=== PATIENT | female | born 1945 | race Caucasian/White ===

== ENCOUNTER 2024-05-19 21:44 | Inpatient (IN) | payer MEDICARE, BC, SELFPAY ==
[2024-05-19 16:27] VITALS: BP 140/65
[2024-05-19 16:44] LABS: % Basophils 0.5 % (0-2); % Eosinophils 1.2 % (0-6); % Immature Granulocytes 0.4 % (0-0.5); % Lymphocytes 18.1 % (20.5-51.1); % Monocytes 5.8 % (1.7-9.3); Absolute Eosinophils 0.1 10^3/uL (0-0.7); Absolute Lymphocytes 1.4 10^3/uL (1.2-3.4); Absolute Monocytes 0.4 10^3/uL (0.1-0.6); Absolute Neutrophils 5.6 10^3/uL (1.4-6.5); Hematocrit 40.5 % (37.0-47.0); Hemoglobin 13.4 g/dL (12.0-16.0); Mean Corp Hgb Conc. 33.1 g/dL (33.0-37.0); Mean Corpuscular Hgb 31.4 pg (27.0-31.0); Mean Corpuscular Volume 94.8 fL (81.0-99.0); Mean Platelet Volume 10.6 fL (7.4-10.4); Nucleated Red Blood Cells % 0 %; Platelet Count 171 10^3/uL (130-400); Red Blood Cell Count 4.27 10^6/uL (4.20-5.40); Red Cell Dist. Width 14.3 % (11.5-14.5); White Blood Cell Count 7.6 10^3/uL (4.8-10.8)
[2024-05-19 17:06] LABS: ALT (SGPT) 17 U/L (0-35); AST (SGOT) 22 U/L (14-36); Albumin 4.1 g/dl (3.5-5.0); Alkaline Phosphatase 72 U/L (38-126); Blood Urea Nitrogen 18 mg/dl (7-17); Carbon Dioxide 32 mmol/L (22-30); Chloride 96 mmol/L (98-107); Glucose 137 mg/dl (70-99); Lipase 156 U/L (23-300); Potassium 3.3 mmol/L (3.5-5.1); Sodium 135 mmol/L (135-145); Total Bilirubin 0.7 mg/dl (0.2-1.3); Total Protein 6.9 g/dl (6.3-8.2); eGFR 38.27
--- NOTE | 2024-05-19 18:34 | ED.GENMED ---
History of Present Illness
<Timothy Mario PA-C - Last Filed: 05/19/24 19:37>
General
Chief Complaint: Flank Pain
Time Seen by Provider: 05/19/24 18:12
History of Present Illness
History of Present Illness:
Patient is a 78-year-old female with past medical history of chronic back pain, history of SVT, IBS, history of thyroid cancer, prior history of appendectomy, cholecystectomy, fibroid tumor removal, and hiatal hernia repair, here today for
evaluation of approximately 5 days of left-sided lower back pain associated with nausea. Pain is described as severe 9 out of 10 in severity. There is no radiation of pain into the abdomen. No vomiting. No chest pain or difficulty breathing
noted. No urinary symptoms. No fevers. No prior history of kidney stones. Patient has been taking Tylenol without improvement.
Past History
<ELINOR Mares Last Filed: 05/19/24 19:37>
Past History
ED Past Medical History: Arrthythmia, Cancer (thyroid), Hypothyroidism, Other (Bursitis,), Other (Had fast-growing cataracts, Cataract surgery) and Other (Bad seasonal allergies, chronic head and nasal congestion with headaches, is on Pushpa all
year long. Takes Monolukast as needed.); Negative HTN, Hypercholesterolemia or NIDDM
ED Past Surgical History: Appendectomy, Cholecystectomy, Gynecological (Hysterectomy), Orthopedic (Bilateral knee replacements) and Other (Abd surgery for large fibroid)
Social History
Tobacco: Non-smoker
Alcohol: None
Personal:
Living: with family
Employment: Employed
Family History
Family History: Adopted
Review of Systems
<ELINOR Mares Last Filed: 05/19/24 19:37>
Review of Systems
All Other Systems: ROS reviewed and negative except as documented in HPI and ROS
Phy Exam
<ELINOR Mares Last Filed: 05/19/24 19:37>
Physical Exam
Physical Exam:
GENERAL: Alert , in no apparent distress
EYE: pupils equal and reactive
NECK: Supple
ENT: o/p clr, mmm.
CARDIAC: Regular rate and rhythm .
LUNGS: Clear breath sounds bilaterally, no acute respiratory distress, no wheezes/rales/rhonchi
ABDOMEN: Soft, without focal tenderness, no r/g, no cvat
NEUROLOGICAL: Alert and oriented, no focal neuro deficits
SKIN: Warm and dry, skin intact.
MUSCULOSKELETAL: No edema, well perfused. Mildly tender along the left lower lumbar paraspinal region.
PSYCH: Normal and appropriate interaction.
Course
<Timothy Mario PA-C - Last Filed: 05/19/24 19:37>
Orders/Labs/Results
Orders:
Orders
05/19/24 16:34
Complete Blood Count/With Diff Urgent
Comprehensive Metabolic Panel Urgent
Lipase Urgent
05/19/24 18:28
Ondansetron Injectable [Zofran] 4 mg IV NOW STA
05/19/24 18:33
Acetaminophen [Tylenol] 1,000 mg PO NOW STA
Lidocaine [Lidocaine 4% Patch] 1 patch TOPICAL ONCE ONE
Apply Lidocaine patch(s) to:: left low back
05/19/24 18:47
CT Abd/pel Without Iv Or Oral Urgent
Comment:
Reason For Exam: left flank pain nausea
05/19/24 18:52
Ondansetron HCl [Zofran] 4 mg PO NOW STA
05/19/24 18:54
Ondansetron Orally Disint [Zofran Odt (Orally Disintegrating)] 4 mg .ROUTE .STK-MED ONE
05/19/24 19:13
Urine Culture Reflexed from UA [Urinalysis Reflex To Culture] Urgent
Date Specimen was Collected: 05/19/24
Time Specimen was Collected: 16:30
Urine Microscopic Reflex Cult Urgent
Urine Culture Urgent
[place] Source: U
Specimen Description:
Date Specimen was Collected: 05/19/24
Time Specimen was Collected: 16:30
Abnormal Lab Results
05/19/24 05/19/24
16:34 19:13
MCH 31.4 H pg
(27.0-31.0)
MPV 10.6 H fL
(7.4-10.4)
Lymphocytes % 18.1 L %
(20.5-51.1)
Potassium 3.3 L mmol/L
(3.5-5.1)
Chloride 96 L mmol/L
(98-107)
Carbon Dioxide 32 H mmol/L
(22-30)
BUN 18 H mg/dl
(7-17)
Creatinine 1.4 H mg/dL
(0.6-1.0)
Glucose 137 H mg/dl
(70-99)
Ur Occult Blood Reflex 1+ A
(Negative)
Urine Bacteria (Reflex) Moderate A
(Negative)
Urine Albumin (Reflex) 1+ A
(Neg - Trace)
05/19/24 16:34
05/19/24 16:34
Vital Signs
Initial and Last Documented VS:
Initial Vital Signs
Temp Pulse Resp BP Pulse Ox
98.1 F 59 20 140/65 97
05/19/24 16:27 05/19/24 16:27 05/19/24 16:27 05/19/24 16:27 05/19/24 16:27
Last Documented Vital Signs
Temp Pulse Resp BP Pulse Ox
98.1 F 63 18 141/74 97
05/19/24 16:27 05/19/24 19:11 05/19/24 19:11 05/19/24 19:11 05/19/24 19:11
<Gale Ramirez MD - Last Filed: 05/19/24 20:30>
Orders/Labs/Results
Orders:
Orders
05/19/24 16:34
Complete Blood Count/With Diff Urgent
Comprehensive Metabolic Panel Urgent
Lipase Urgent
05/19/24 18:28
Ondansetron Injectable [Zofran] 4 mg IV NOW STA
05/19/24 18:33
Acetaminophen [Tylenol] 1,000 mg PO NOW STA
Lidocaine [Lidocaine 4% Patch] 1 patch TOPICAL ONCE ONE
Apply Lidocaine patch(s) to:: left low back
05/19/24 18:47
CT Abd/pel Without Iv Or Oral Urgent
Comment:
Reason For Exam: left flank pain nausea
05/19/24 18:52
Ondansetron HCl [Zofran] 4 mg PO NOW STA
05/19/24 18:54
Ondansetron Orally Disint [Zofran Odt (Orally Disintegrating)] 4 mg .ROUTE .STK-MED ONE
05/19/24 19:13
Urine Culture Reflexed from UA [Urinalysis Reflex To Culture] Urgent
Date Specimen was Collected: 05/19/24
Time Specimen was Collected: 16:30
Urine Microscopic Reflex Cult Urgent
Urine Culture Urgent
[place] Source: U
Specimen Description:
Date Specimen was Collected: 05/19/24
Time Specimen was Collected: 16:30
Abnormal Lab Results
05/19/24 05/19/24
16:34 19:13
MCH 31.4 H pg
(27.0-31.0)
MPV 10.6 H fL
(7.4-10.4)
Lymphocytes % 18.1 L %
(20.5-51.1)
Potassium 3.3 L mmol/L
(3.5-5.1)
Chloride 96 L mmol/L
(98-107)
Carbon Dioxide 32 H mmol/L
(22-30)
BUN 18 H mg/dl
(7-17)
Creatinine 1.4 H mg/dL
(0.6-1.0)
Glucose 137 H mg/dl
(70-99)
Ur Occult Blood Reflex 1+ A
(Negative)
Urine Bacteria (Reflex) Moderate A
(Negative)
Urine Albumin (Reflex) 1+ A
(Neg - Trace)
05/19/24 16:34
05/19/24 16:34
Vital Signs
Initial and Last Documented VS:
Initial Vital Signs
Temp Pulse Resp BP Pulse Ox
98.1 F 59 20 140/65 97
05/19/24 16:27 05/19/24 16:27 05/19/24 16:27 05/19/24 16:27 05/19/24 16:27
Last Documented Vital Signs
Temp Pulse Resp BP Pulse Ox
98.1 F 63 18 141/74 97
05/19/24 16:27 05/19/24 19:11 05/19/24 19:11 05/19/24 19:11 05/19/24 19:11
<Timothy Mario PA-C - Last Filed: 05/19/24 19:37>
MDM/Problems Addressed
Differential Diagnosis Includes:
Patient is a 78-year-old female with past medical history of chronic back pain, history of SVT, IBS, history of thyroid cancer, prior history of appendectomy, cholecystectomy, fibroid tumor removal, and hiatal hernia repair, here today for
evaluation of approximately 5 days of left-sided lower back pain associated with nausea. Overall, patient appears very well. Vitals remarkable for an elevated blood pressure. Physical examination described above. On examination the patient is
mildly tender along the left lower lumbar paraspinal region. There is no midline tenderness or deformities. No swelling or overlying skin changes. Abdomen soft and nontender. We will begin with screening labs as well as urinalysis. Will obtain
CT scan of the abdomen and pelvis. Patient not able to take IV contrast secondary to reported history of swelling. She also was found to have an elevated creatinine however consistent with baseline. Will provide oral contrast and hold off on IV
contrast. Will provide IV Zofran for nausea as well as Tylenol for pain. Will also provide topical lidocaine patches.
ED Attending Note
<Timothy Mario PA-C - Last Filed: 05/19/24 19:37>
-
Portions of this chart may have been created with voice recognition software.� Occasional wrong word or��sound alike� substitutions may have occurred due to the inherent limitations of voice recognition software.
<Gale Ramirez MD - Last Filed: 05/19/24 20:30>
ED Attending Note
Patient seen and examined by attending physician: Yes
I performed the substantive portion of visit, reviewed & personally made and approve the management plan that is documented in note by myself or FLOR.: Yes
ED Attending Note:
78-year-old female who noted urinary frequency recently associated with a 4-day history of left-sided flank pain. Unfortunately her CAT scan is consistent with a new onset pelvic mass and likely metastatic lymph nodes. She also has obstruction of
the left ureter, creatinine reviewed at 1.4. Pain was controlled initially she is now requesting more pain medication. She is awake alert lucid and generally comfortable. Long discussion with her, her son-in-law, and her all who are at
bedside. I gave them a copy of her CAT scan report and they are aware of the suspected malignancy. Patient will be admitted, case discussed with hospitalist via [place] text, recommended urology consult in a.m. as well as obvious heme-onc consult.
Discharge Plan
Departure
Patient Disposition: Admit
Date of Disposition: 05/19/24
Time of Disposition: 20:28
Presentation/result/management discussed w/ accepting MD/DO: Hospitalist
Condition: Fair
Discharge Problem:
New onset pelvic mass
Prescriptions:
No Action
triamterene-hydrochlorothiazid 1 EACH tablet
1 ea PO DAILY
Patient Comments:
37.5-25mg
montelukast 10 MG tablet
10 mg PO QPM
fexofenadine [Pushpa] 60 MG tablet
60 mg PO BID
levothyroxine 150 MCG tablet
150 mcg PO DAILY
escitalopram oxalate 10 MG tablet
10 mg PO HS
Bifidobacterium infantis [Align (B.infantis)] 4 MG capsule
4 mg PO DAILY
metoprolol tartrate 100 MG tablet
100 mg PO BID
twunnxhp-egh-JR-lycopen-lutein [Centrum Silver] 1 EACH tablet
1 ea PO DAILY
acetaminophen 325 MG tablet
650 mg PO Q4HPRN PRN (Reason: mild to moderate pain) Qty: 0 0RF
polyethylene glycol 3350 17 GRAMS powder in packet
17 grams PO DAILYPRN PRN (Reason: constipation) Qty: 0 0RF
tramadol 50 MG tablet
25 - 50 mg PO Q6HPRN PRN (Reason: severe pain) Qty: 14 0RF
prochlorperazine maleate 10 MG tablet
10 mg PO Q6HPRN PRN (Reason: nausea/vomiting) Qty: 10 0RF
pantoprazole 40 MG tablet,delayed release (DR/EC)
40 mg PO DAILY Qty: 0 0RF
Referrals:
UNKNOWN - PT DOES,NOT KNOW [Unknown Provider] -
Interventions
Interventions:
*Risk Screen - Suicide Last Done: 05/19/24 19:10
*General Assessment Last Done: 05/19/24 16:27
TN-Gmflxa-Tyvfgperdj Assessment Last Done: 05/19/24 19:16
ED-Female Genitourinary Assessment Last Done: 05/19/24 19:16
Discharge Date and Time
Print Language: BURMESE
[2024-05-19] MEDS: TYLENOL 1000 MG PO (18:57)
[2024-05-19] MEDS: LIDOCAINE 4% PATCH 1 PATCH TOPICAL (18:59)
[2024-05-19] MEDS: ZOFRAN 4 MG PO (18:59)
[2024-05-19 19:09] VITALS: BMI 32.3
[2024-05-19 19:11] VITALS: BP 141/74
[2024-05-19 19:20] LABS: Urine Albumin 1+ (Neg - Trace); Urine Bilirubin Negative (Negative); Urine Character Clear (Clear); Urine Color Yellow; Urine Glucose Negative (Negative); Urine Ketone Negative (Negative); Urine Leukocyte Negative (Negative); Urine Nitrite Negative (Negative); Urine Occult Blood 1+ (Negative); Urine Urobilinogen Negative (Neg - 1+)
[2024-05-19 19:27] LABS: Urine Squamous Cell >30 /LPF (Few)
[2024-05-19 19:28] LABS: Urine Bacteria Moderate (Negative); Urine Red Blood Cell 0-2 /HPF (0-2); Urine White Cell 0-2 /HPF (0-5)
--- NOTE | 2024-05-19 21:01 | HPS.HSE ---
Family Physician
-
Family Physician: Samson Davenport
Chief Complaint
-
Left-sided flank pain
History of Present Illness
This is 78-year-old female with past medical history significant for leiomyoma of body of uterus status post total abdominal hysterectomy in 2016, history of hypertension, anemia, paroxysmal SVT, remote thyroid cancer status post radioablation,
history of irritable bowel syndrome, history of adhesions status post surgery presenting to the emergency department with left-sided flank pain for the last 4 days.
Patient reports acute onset of left-sided flank pain radiating to the abdomen and associated with nausea vomiting and currently only dry heaves due to decreased p.o. intake. She specifically denies having any dysuria, hematuria frequency or
urgency. She did not have any fevers or chills and did not feel quite this was a UTI. She denies any abdominal bloating. She denies any change in bowel habits which is notable for intermittent constipation and diarrhea.
She denies generalized symptoms such as weight loss, weight gain, diaphoresis, night sweats, shortness of breath or dyspnea on exertion. She denies any lower extremity swelling.
On arrival in the emergency department she was afebrile with a blood pressure of 140/70 pulse of history and she was satting 98% on room air. CBC was completely normal. Electrolytes BUN and creatinine were similar to prior with a creatinine of 1.4
which is similar to her prior creatinine. UA shows no signs of acute infection.
CT of the abdomen pelvis revealed large heterogeneous, cystic lesion extending from the pelvis into the lower/mid abdomen measuring up to 18.9 x 14.8 x 16.9 cm. There is associated local mass effect. There are numerous additional mildly hypodense
lesions with a large left perirenal/retroaortic lesion measuring 13.4 x 9.4 x 13.2 cm. This obstructs the left ureter with associated moderate left-sided hydronephrosis. Findings are that of malignancy, possibly ovarian, with metastatic lymph
nodes/soft tissue deposits. Also there is a 3.3 cm focus of nodular thickening along the sigmoid colon which may be related to a large adjacent lymph node, although a sigmoid mass is possible. Further evaluation with colonoscopy may be considered.
Medical History
Past Medical History
Past Medical History: Reports Other
Additional Past Medical History:
Thyroid cancer status post total thyroidectomy and radioablation
Hypertension
Paroxysmal SVT
Allergic rhinitis
GERD
History of leiomyoma status post BETINA/BSO
Hypothyroid
IBS
Past Surgical History: Reports Other
Additional Past Surgical History:
Total abdominal hysterectomy and bilateral salpingo-oophorectomy in 2016
Adhesiolysis
Cholecystectomy
Thyroidectomy
Total left knee arthroplasty
Total right knee arthroplasty
Paraesophageal hernia repair with mesh and posterior partial fundoplication 2018
Social History
Tobacco: Non-smoker
Alcohol: None
Drug: None
Personal:
Living: With Family
Employment: Retired
Family History
Family History: Not pertinent
Allergies / Home Medications
Allergies reflects when Allergies were last updated in [facility].
Home Medications with original date entered in [facility]
Allergy/Medication List:
Allergies
Allergy/AdvReac Type Severity Reaction Status Date / Time
codeine [Codeine] Allergy vomiting Verified 05/19/24 16:27
erythromycin base Allergy vomiting Verified 05/19/24 16:27
[Erythromycin Base]
hydrocodone [Hydrocodone] Allergy swelling, Verified 05/19/24 16:27
vomiting
Iodinated Contrast Media Allergy Swelling Verified 05/19/24 16:27
[IV Dye, Iodine Containing
Contrast ]
NSAIDS (Non-Steroidal Allergy INTERNAL Verified 05/19/24 16:27
Anti-Inflamma BLEEDING,
ANEMIA
oxycodone Allergy Vomiting Verified 05/19/24 16:27
Home Medications
montelukast 10 mg tablet 10 mg PO QPM 03/31/11
triamterene 37.5 mg-hydrochlorothiazide 25 mg tablet 1 ea PO DAILY 03/31/11
escitalopram oxalate 20 mg tablet 10 mg PO HS 08/30/17
fexofenadine 60 mg tablet (Pushpa) 60 mg PO BID 08/30/17
levothyroxine 150 mcg tablet 150 mcg PO DAILY 08/30/17
metoprolol tartrate 100 mg tablet 100 mg PO BID 06/17/18
pantoprazole 40 mg tablet,delayed release 40 mg PO twice daily
Imodium 2 mg tablet, 2 mg p.o. twice daily
Review of Systems
-
History Source: Patient
Constitutional: Reports No Symptoms
EENT: Reports No Symptoms
Respiratory: Reports No Symptoms
Cardiac: Reports No Symptoms
Abdomen/GI: Reports Abdominal Pain
: Reports Flank Pain
Musculoskeletal: Reports No Symptoms
Skin: Reports No Symptoms
Neurological: Reports No Symptoms
Endocrine: Reports No Symptoms
Hematologic/Lymphatic: Reports No Symptoms
Psych: Reports No Symptoms
Physical Exam
Vital Signs
Vital Signs
Temp Pulse Resp BP Pulse Ox
98.1 F 63 18 141/74 97
05/19/24 16:27 05/19/24 19:11 05/19/24 19:11 05/19/24 19:11 05/19/24 19:11
Physical Exam
General: Well Developed, Well Nourished, No Apparent Distress and Comfortable
HEENT: NormoCephalic, Anicteric, Moist mucous membranes and Atraumatic
Respiratory: Clear
Cardiac: S1/S2 and Regular Rhythm
Breast: Deferred by me
GI: Soft, Non Tender, Non Distended and Normal Bowel Sounds
Rectal: Deferred by Provider
Genito-urinary: Deferred by me
Musculoskeletal: No Clubbing, No Cyanosis and No Edema
Neuro: AO x 3 and Nonfocal/grossly intact
Hematologic/Lymphatic: No Lymphadenopathy
Psych: Calm
Laboratory Results
-
05/19/24 16:34
05/19/24 16:34
Laboratory Results
Total Bilirubin 0.7 mg/dl (0.2-1.3) 05/19/24 16:34
AST 22 U/L (14-36) 05/19/24 16:34
ALT 17 U/L (0-35) 05/19/24 16:34
Alkaline Phosphatase 72 U/L (38-126) 05/19/24 16:34
Lipase 156 U/L (23-300) 05/19/24 16:34
Data Reviewed
-
CT Scan: Report Reviewed by me
Lab Data: Labs Reviewed by me
Old Records: Reviewed
Impression/Plan
-
IMPRESSION:
78-year-old comes in with 4 days of right-sided flank pain was found to have a new large cystic lesion extending from the pelvis into the lower midabdomen measuring about 19 cm in largest dimension with associated local mass effect and additional
hypodense lesions with a large left perirenal/retroaortic lesion measuring a 14 cm in largest extension which obstructs the left ureter with associated moderate left-sided hydronephrosis. In addition there is a 3.3 cm focus of nodular thickening
along the sigmoid colon which may be related to a large adjacent lymph node although a sigmoid mass is possible. UA is negative she shows no signs of an acute infection. Besides the pain she is otherwise asymptomatic.
PLAN:
1. Pelvic mass with urinary obstruction - Cr 1.4 similar to prior. U/A negative. No signs of acute infection otherwise.
- admit to med/surg
- given urinary obstruction, urology notified, no recommendations at this point
- concern if for possible metastatic lesion (h/o leimomyoma) of uterine or ovarian origin, h/o BETINA/BSO in 2016.
- check Ca 125 and CEA
- oncology consultation
- pain control
- given lesion in colon, will get GI as this may be an approach to diagnostic testing
2. Other issues are relatively stable so will continue her medications as per home regimen at this time.
DVT PPX - unknown timing of urological procedure but no indication for acute procedure, lovenox sq. Will d/c if urology intends procedure
Code status - full code
[2024-05-19] MEDS: ULTRAM 50 MG PO (22:15)
[2024-05-19] MEDS: ZOFRAN 4 MG IV (23:04)
[2024-05-19 23:29] VITALS: BP 123/61
[2024-05-19 23:47] VITALS: BP 140/80
[2024-05-19 23:48] VITALS: BMI 32.3
[2024-05-20] MEDS: HEPARIN 5000 UNITS SC ×3 (00:09→16:04)
[2024-05-20] MEDS: LEXAPRO 20 MG PO (00:11)
[2024-05-20] MEDS: TYLENOL 650 MG PO (02:49)
--- NOTE | 2024-05-20 05:28 | CONS.URO ---
Consultation
-
Date/Time Consultation Performed: 05/20/2024 0537
Requesting Provider: ED
Performing Provider: Abhi
Reason for Consultation: Left Ureteral Obstruction
Medical History
History of Present Illness
ED admission note: '78-year-old female with past medical history significant for leiomyoma of body of uterus status post total abdominal hysterectomy in 2016, history of hypertension, anemia, paroxysmal SVT, remote thyroid cancer status post
radioablation, history of irritable bowel syndrome, history of adhesions status post surgery presenting to the emergency department with left-sided flank pain for the last 4 days.
Patient reports acute onset of left-sided flank pain radiating to the abdomen and associated with nausea vomiting and currently only dry heaves due to decreased p.o. intake. She specifically denies having any dysuria, hematuria frequency or
urgency. She did not have any fevers or chills and did not feel quite this was a UTI. She denies any abdominal bloating. She denies any change in bowel habits which is notable for intermittent constipation and diarrhea.
She denies generalized symptoms such as weight loss, weight gain, diaphoresis, night sweats, shortness of breath or dyspnea on exertion. She denies any lower extremity swelling.
On arrival in the emergency department she was afebrile with a blood pressure of 140/70 pulse of history and she was satting 98% on room air. CBC was completely normal. Electrolytes BUN and creatinine were similar to prior with a creatinine of 1.4
which is similar to her prior creatinine. UA shows no signs of acute infection.'
She reports that Tramadol has provided a few hours of relief from the left flank pain, 'but then wears off'.
Past Medical History
Past Medical History: Other (Thyroid cancer status post total thyroidectomy and radioablation Hypertension Paroxysmal SVT Allergic rhinitis GERD History of leiomyoma status post BETINA/BSO Hypothyroid IBS)
Past Surgical History: Other (Total abdominal hysterectomy and bilateral salpingo-oophorectomy in 2016 Adhesiolysis Cholecystectomy Thyroidectomy Total left knee arthroplasty Total right knee arthroplasty Paraesophageal hernia repair with mesh and
posterior partial fundoplication 2018)
Allergies/Home Medications
Allergies
Allergy/AdvReac Type Severity Reaction Status Date / Time
codeine [Codeine] Allergy vomiting Verified 05/19/24 16:27
erythromycin base Allergy vomiting Verified 05/19/24 16:27
[Erythromycin Base]
hydrocodone [Hydrocodone] Allergy swelling, Verified 05/19/24 16:27
vomiting
Iodinated Contrast Media Allergy Swelling Verified 05/19/24 16:27
[IV Dye, Iodine Containing
Contrast ]
NSAIDS (Non-Steroidal Allergy INTERNAL Verified 05/19/24 16:27
Anti-Inflamma BLEEDING,
ANEMIA
oxycodone Allergy Vomiting Verified 05/19/24 16:27
Home Medications
�Medication �Instructions �Recorded �Confirmed �Type
montelukast 10 mg tablet 10 mg PO QPM 03/31/11 06/27/18 History
triamterene 37.5 1 ea PO DAILY 03/31/11 06/27/18 History
mg-hydrochlorothiazide 25 mg tablet
Bifidobacterium infantis 4 mg 4 mg PO DAILY 08/30/17 06/27/18 History
capsule (Align (B.infantis))
escitalopram oxalate 10 mg tablet 10 mg PO HS 08/30/17 06/27/18 History
fexofenadine 60 mg tablet (Pushpa) 60 mg PO BID 08/30/17 06/27/18 History
levothyroxine 150 mcg tablet 150 mcg PO DAILY 08/30/17 06/27/18 History
metoprolol tartrate 100 mg tablet 100 mg PO BID 06/17/18 06/27/18 History
gsoguoas-sza-rlqnm acid 0.4 1 ea PO DAILY 06/17/18 06/27/18 History
mg-lycopene 300 mcg-lutein 250 mcg
tablet (Centrum Silver)
acetaminophen 325 mg tablet 650 mg (2 x 325 mg) PO Q4HPRN PRN 06/29/18 Rx
mild to moderate pain #0 tabs
pantoprazole 40 mg tablet,delayed 40 mg PO DAILY ##0 06/29/18 06/27/18 Rx
release
polyethylene glycol 3350 17 gram 17 grams PO DAILYPRN PRN 06/29/18 Rx
oral powder packet constipation #0 packets
prochlorperazine maleate 10 mg 10 mg PO Q6HPRN PRN 06/29/18 Rx
tablet nausea/vomiting #10 tabs
tramadol 50 mg tablet 25 - 50 mg (0.5 - 1 x 50 mg) PO 06/29/18 Rx
Q6HPRN PRN severe pain #14 tabs
Physical Exam
Vital Signs
Vital Signs
Temp Pulse Resp BP Pulse Ox
98.2 F 57 18 140/80 97
05/19/24 23:47 05/19/24 23:47 05/19/24 23:47 05/19/24 23:47 05/19/24 23:47
Physical Exam
adult female in bed
General: No Apparent Distress
GI: Organomegaly (LUQ and pelvic masses evident)
Genito-urinary: Costovertebral Angle Tend (left)
Skin: Warm
Neuro: Awake, Alert and Oriented
Psych: Calm and Intact Judgement
Assessment / Plan
-
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
renal function remains satisfactory
Rec: no urgent need for urosurgical intervention
IF pelvic surgery is to be pursued [by GynOnc or CRS] then retrograde placement of a left ureteral stent could be attempted.
Irad could be enlisted to place a left percutaneous nephrostomy tube to alleviate the obstruction and possibly pain.
Pain medications will be enhanced in meantime.
Data Reviewed
-
CT Scan: Image personally visualized and interpreted
Lab Data: Labs Reviewed
Old Records: Reviewed
[2024-05-20] MEDS: SYNTHROID 150 MCG PO (06:09)
[2024-05-20] MEDS: TORADOL 15 MG IV (06:10)
--- NOTE | 2024-05-20 06:43 | CON.ONC ---
Documented by User: CHIQUI Hawthorne 05/20/24 10:19
Impression
Impression
Pelvic mass and left RP masses with urinary obstruction
h/o leimomyoma of uterine or ovarian origin, h/o BETINA/BSO in 2016
Plan
Plan
urology following
consult LEARNING AND DEVELOPMENT MANAGER surgery for further evaluation and intervention
f/u CEA, Ca 125
Patient History
History of Present Illness
78yo F presented with left flank pain. Symptoms have been ongoing for the last 4-5 days. The pain radiates to the abdomen and associated with nausea, dry heaves, and vomiting. She reports decreased appetite. INtial labs showed a creatinine of 1.4,
otherwise, no significant lab abnormalities. CT ab/pelvis showed a pelvic mass 16.9 x 14.8 x 18.9 cm with associated local mass effect. Additionally there is a 4.2 x 3.4 cm and a 2.1 cm mildly hypodense soft tissue nodules in the perirectal space.
There are numerous smaller soft tissue nodules in the presacral space. The bladder is anteriorly displaced and nondistended. There is retroperitoneal lymphadenopathy. There is a 3.3 x 2.7 cm masslike focus along the upper sigmoid colon. There is a
9.4 x 13.4 x 13.2 cm heterogeneous lesion in the left periaortic/perirenal space which obstructs the left ureter and causes moderate left-sided hydronephrosis. There is anterior displacement of the descending colon.There is moderate left-sided
hydronephrosis likely secondary to adjacent obstructing mass. Her last EGD 2018 with benign finding. Her last colonoscopy in 2017 s/p polypectomy with benign findings.
Clinically, denies fever, chills, cough, SOB, chest pain, palpations, diarrhea, constipation, dysuria, hematuria, melena, hematemesis, or BRBPR. Her symptoms are better controlled s/p tylenol, ketorolac, tramadol, and ondansetron. She reports a good
performance status at baseline with independence in ADLs.
Afebrile, no hypoxia or hypotension.
Past-Medical/Surgical History
PMH
Thyroid cancer status post total thyroidectomy and radioablation
Hypertension
Paroxysmal SVT
Allergic rhinitis
GERD
History of leiomyoma status post BETINA/BSO
Hypothyroid
IBS
PSH
Total abdominal hysterectomy and bilateral salpingo-oophorectomy in 2015
Adhesiolysis
Cholecystectomy
Thyroidectomy
Total left knee arthroplasty
Total right knee arthroplasty
Paraesophageal hernia repair with mesh and posterior partial fundoplication 2018
Social
Tobacco: Non-smoker
Alcohol: None
Drug: None
Personal:
Living: With Family
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
Family non-contributory
Patient Medication
�Medication �Instructions �Recorded �Confirmed �Last Taken �Type
montelukast 10 mg tablet 10 mg PO QPM 03/31/11 06/27/18 06/26/18 23:00 History
triamterene 37.5 1 ea PO DAILY 03/31/11 06/27/18 06/26/18 08:30 History
mg-hydrochlorothiazide 25 mg tablet
Bifidobacterium infantis 4 mg 4 mg PO DAILY 08/30/17 06/27/18 06/26/18 08:30 History
capsule (Align (B.infantis))
escitalopram oxalate 10 mg tablet 10 mg PO HS 08/30/17 06/27/18 06/26/18 23:00 History
fexofenadine 60 mg tablet (Pushpa) 60 mg PO BID 08/30/17 06/27/18 06/26/18 23:00 History
levothyroxine 150 mcg tablet 150 mcg PO DAILY 08/30/17 06/27/18 06/26/18 08:30 History
metoprolol tartrate 100 mg tablet 100 mg PO BID 06/17/18 06/27/18 06/27/18 06:30 History
qrbgtwqq-pyd-ithiw acid 0.4 1 ea PO DAILY 06/17/18 06/27/18 06/26/18 23:00 History
mg-lycopene 300 mcg-lutein 250 mcg
tablet (Centrum Silver)
acetaminophen 325 mg tablet 650 mg (2 x 325 mg) PO Q4HPRN PRN 06/29/18 Unknown Rx
mild to moderate pain #0 tabs
pantoprazole 40 mg tablet,delayed 40 mg PO DAILY ##0 06/29/18 06/27/18 06/26/18 23:00 Rx
release
polyethylene glycol 3350 17 gram 17 grams PO DAILYPRN PRN 06/29/18 Unknown Rx
oral powder packet constipation #0 packets
prochlorperazine maleate 10 mg 10 mg PO Q6HPRN PRN 06/29/18 Unknown Rx
tablet nausea/vomiting #10 tabs
tramadol 50 mg tablet 25 - 50 mg (0.5 - 1 x 50 mg) PO 06/29/18 Unknown Rx
Q6HPRN PRN severe pain #14 tabs
Active Medications
Generic Name Dose Route Start Last Admin
Trade Name Freq PRN Reason Stop Dose Admin
Acetaminophen 650 mg 05/19/24 21:58 05/20/24 02:49
Acetaminophen 325 Mg Tablet PO 06/16/24 21:57 650 mg
Q4HPRN PRN Administration
mild to moderate pain
Dicyclomine HCl 10 mg 05/20/24 08:00
Dicyclomine 10 Mg Capsule PO 06/17/24 07:59
BID MARILYN
Escitalopram Oxalate 20 mg 05/19/24 22:00 05/20/24 00:11
Escitalopram 10 Mg Tablet PO 06/16/24 21:59 20 mg
HS MARILYN Administration
Heparin Sodium 5,000 units 05/20/24 00:00 05/20/24 00:09
Heparin 5,000 Units/Ml 1 Ml Vial SC 06/17/24 00:00 5,000 units
Q8 MARILYN Administration
Ketorolac Tromethamine 15 mg 05/20/24 12:00
Ketorolac 15 Mg/Ml Injection IV 05/25/24 11:59
Q6HPRN PRN
left flank pain
Levothyroxine Sodium 150 mcg 05/20/24 06:00 05/20/24 06:09
Levothyroxine 150 Mcg Tablet PO 06/17/24 05:59 150 mcg
DAILY @ 0600 MARILYN Administration
Loperamide HCl 2 mg 05/20/24 08:00
Loperamide 2 Mg Capsule PO 06/17/24 07:59
BID MARILYN
Loratadine 5 mg 05/20/24 08:00
Loratadine 5 Mg Chewable Tablet PO 06/17/24 07:59
BID MARILYN
Metoprolol Tartrate 50 mg 05/20/24 08:00
Metoprolol 50 Mg Regular Release Tablet PO 06/17/24 07:59
BID MARILYN
Montelukast Sodium 10 mg 05/20/24 18:00
Montelukast Sodium 10 Mg Tablet PO 06/17/24 17:59
QPM MARILYN
Ondansetron HCl 4 mg 05/19/24 21:58 05/19/24 23:04
Ondansetron 4 Mg/2 Ml Vial IV 06/16/24 21:57 4 mg
Q6HPRN PRN Administration
nausea and vomiting
Pantoprazole Sodium 40 mg 05/20/24 08:00
Pantoprazole 40 Mg Delayed Release Tablet PO 06/17/24 07:59
BID MARILYN
Sodium Chloride 0 flush 05/19/24 22:00
Sodium Chloride 0.9% (Flush) Syringe IV 06/16/24 21:59
PER PROTOCOL MARILYN
Tramadol HCl 50 mg 05/19/24 21:58 05/19/24 22:15
Tramadol Hcl 50 Mg Tablet PO 06/16/24 21:57 50 mg
Q6HPRN PRN Administration
moderate pain
Triamterene/Hydrochlorothiazide 1 capsule 05/20/24 08:00
Triamterene (37.5 Mg)/Hydrochlorothiazide (25 Mg) Capsule PO 06/17/24 07:59
DAILY MARILYN
Review of Systems
-
ROS is notable for HPI, otherwise negative
Physical Exam
-
General: No Apparent Distress and Comfortable
HEENT: Anicteric, Moist mucous membranes
Respiratory: Clear
Cardiac: S1/S2 and Regular
GI: Soft, Non Tender, Non Distended, LUQ mass
left flank TTP
Neuro: AO x 3 and speech clear
Psych: Calm
Labs
Lab Results
WBC 7.6 10^3/uL (4.8-10.8) 05/19/24 16:34
RBC 4.27 10^6/uL (4.20-5.40) 05/19/24 16:34
Hgb 13.4 g/dL (12.0-16.0) 05/19/24 16:34
Hct 40.5 % (37.0-47.0) 05/19/24 16:34
MCV 94.8 fL (81.0-99.0) 05/19/24 16:34
MCH 31.4 pg (27.0-31.0) H 05/19/24 16:34
MCHC 33.1 g/dL (33.0-37.0) 05/19/24 16:34
RDW 14.3 % (11.5-14.5) 05/19/24 16:34
Plt Count 171 10^3/uL (130-400) 05/19/24 16:34
MPV 10.6 fL (7.4-10.4) H 05/19/24 16:34
Abs Immat Gran (auto) 0.0 10^3/uL (0-0.05) 05/19/24 16:34
Absolute Neuts (auto) 5.6 10^3/uL (1.4-6.5) 05/19/24 16:34
Absolute Lymphs (auto) 1.4 10^3/uL (1.2-3.4) 05/19/24 16:34
Absolute Monos (auto) 0.4 10^3/uL (0.1-0.6) 05/19/24 16:34
Absolute Eos (auto) 0.1 10^3/uL (0-0.7) 05/19/24 16:34
Absolute Basos (auto) 0.0 10^3/uL (0-0.2) 05/19/24 16:34
Immature Gran % 0.4 % (0-0.5) 05/19/24 16:34
Neutrophils % 74.0 % (42.2-75.2) 05/19/24 16:34
Lymphocytes % 18.1 % (20.5-51.1) L 05/19/24 16:34
Monocytes % 5.8 % (1.7-9.3) 05/19/24 16:34
Eosinophils % 1.2 % (0-6) 05/19/24 16:34
Basophils % 0.5 % (0-2) 05/19/24 16:34
Creatinine 1.4 mg/dL (0.6-1.0) H 05/19/24 16:34
Vital Signs
Vital Signs
Temp Pulse Resp BP Pulse Ox
98.2 F 57 18 140/80 97
05/19/24 23:47 05/19/24 23:47 05/19/24 23:47 05/19/24 23:47 05/19/24 23:47

Documented by User: Larisa Calloway MD 05/20/24 19:58
Impression
Impression
Pelvic mass and left RP masses with urinary obstruction
h/o leimomyoma of uterine or ovarian origin, h/o BETINA/BSO in 2016
Hx thyroid CA s/p radioactive iodine
Cancer-related pain
Hypothyroid
Plan
Plan
Personally reviewed scans showing multiple pelvic masses and L hydronephrosis.
No lung involvement in visualized lung mckeon on CT A/P. Chest CT ordered and performed today: no lung nodules
Will need tissue. Pelvic masses appear amenable to image-guided biopsy if needed.
GI consult reviewed, they have signed off with plan for possible outpt colonoscopy.
Urology consult reviewed. I prefer stent placement to PCN since she will need chemotherapy. Cr okay but she is symptomatic from hydronephrosis with pain.
Pain control currently fair on Tramadol at rest, has pain if she moves. She reports allergy to opiates characterized as 'legs swelled up' year ago and she was told to avoid them as a class. States allergy to oxycodone, hydrocodone, morphine,
codeine. Could try Dilaudid IV PRN severe pain, I will order.
CEA unremarkable at 3.05, await CA125 and CA 19-9.
Nausea control: ondansetron PRN.
Pt with history of thyroid cancer, marked TSH elevation. Add-on T3, T4, thyroglobulin, thyroglobulin Ab.
Case d/w Dr. Lugo today:
- CT A/P with IV and oral contrast
- Consult IR for image-guided biopsy pelvic mass.
Thank you for consult, will follow along with you.
Patient History
History of Present Illness
78yo F presented with left flank pain. Symptoms have been ongoing for the last 4-5 days. The pain radiates to the abdomen and associated with nausea, dry heaves, and vomiting. She reports decreased appetite. INtial labs showed a creatinine of 1.4,
otherwise, no significant lab abnormalities. CT ab/pelvis showed a pelvic mass 16.9 x 14.8 x 18.9 cm with associated local mass effect. Additionally there is a 4.2 x 3.4 cm and a 2.1 cm mildly hypodense soft tissue nodules in the perirectal space.
There are numerous smaller soft tissue nodules in the presacral space. The bladder is anteriorly displaced and nondistended. There is retroperitoneal lymphadenopathy. There is a 3.3 x 2.7 cm masslike focus along the upper sigmoid colon. There is a
9.4 x 13.4 x 13.2 cm heterogeneous lesion in the left periaortic/perirenal space which obstructs the left ureter and causes moderate left-sided hydronephrosis. There is anterior displacement of the descending colon.There is moderate left-sided
hydronephrosis likely secondary to adjacent obstructing mass. Her last EGD 2018 with benign finding. Her last colonoscopy in 2017 s/p polypectomy with benign findings. She has a relevant family history of thyroid cancer s/p thyroidectomy and
radioactive iodine in [address] Davenport manages her Synthroid. She underwent BETINA in 2015 for uterine leiomyoma.
Clinically, denies fever, chills, cough, SOB, chest pain, palpations, diarrhea, constipation, dysuria, hematuria, melena, hematemesis, or BRBPR. Her symptoms are better controlled s/p tylenol, ketorolac, tramadol, and ondansetron. She reports a good
performance status at baseline with independence in ADLs.
Afebrile, no hypoxia or hypotension.
Past-Medical/Surgical History
PMH
Thyroid cancer status post total thyroidectomy and radioablation
Hypertension
Paroxysmal SVT
Allergic rhinitis
GERD
History of leiomyoma status post BETINA/BSO
Hypothyroid
IBS
PSH
Total abdominal hysterectomy and bilateral salpingo-oophorectomy in 2015
Adhesiolysis
Cholecystectomy
Thyroidectomy
Total left knee arthroplasty
Total right knee arthroplasty
Paraesophageal hernia repair with mesh and posterior partial fundoplication 2018
Social
Tobacco: Non-smoker
Alcohol: None
Drug: None
Personal:
Living: With Family
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
Family non-contributory
Physical Exam
-
General: No Apparent Distress and Comfortable
HEENT: Anicteric, Moist mucous membranes
Respiratory: Clear
Cardiac: S1/S2 and Regular
GI: Soft, Non Tender, Non Distended, LUQ mass
: left flank tenderness
Neuro: AO x 3 and speech clear
Psych: Calm
Labs
Lab Results
WBC 7.6 10^3/uL (4.8-10.8) 05/19/24 16:34
RBC 4.27 10^6/uL (4.20-5.40) 05/19/24 16:34
Hgb 13.4 g/dL (12.0-16.0) 05/19/24 16:34
Hct 40.5 % (37.0-47.0) 05/19/24 16:34
MCV 94.8 fL (81.0-99.0) 05/19/24 16:34
MCH 31.4 pg (27.0-31.0) H 05/19/24 16:34
MCHC 33.1 g/dL (33.0-37.0) 05/19/24 16:34
RDW 14.3 % (11.5-14.5) 05/19/24 16:34
Plt Count 171 10^3/uL (130-400) 05/19/24 16:34
MPV 10.6 fL (7.4-10.4) H 05/19/24 16:34
Abs Immat Gran (auto) 0.0 10^3/uL (0-0.05) 05/19/24 16:34
Absolute Neuts (auto) 5.6 10^3/uL (1.4-6.5) 05/19/24 16:34
Absolute Lymphs (auto) 1.4 10^3/uL (1.2-3.4) 05/19/24 16:34
Absolute Monos (auto) 0.4 10^3/uL (0.1-0.6) 05/19/24 16:34
Absolute Eos (auto) 0.1 10^3/uL (0-0.7) 05/19/24 16:34
Absolute Basos (auto) 0.0 10^3/uL (0-0.2) 05/19/24 16:34
Immature Gran % 0.4 % (0-0.5) 05/19/24 16:34
Neutrophils % 74.0 % (42.2-75.2) 05/19/24 16:34
Lymphocytes % 18.1 % (20.5-51.1) L 05/19/24 16:34
Monocytes % 5.8 % (1.7-9.3) 05/19/24 16:34
Eosinophils % 1.2 % (0-6) 05/19/24 16:34
Basophils % 0.5 % (0-2) 05/19/24 16:34
Creatinine 1.4 mg/dL (0.6-1.0) H 05/19/24 16:34
Cr 1.3
LFT's normal
CEA 3.05
TSH 61.50, T4 6.90
[2024-05-20 06:57] LABS: Hematocrit 36.6 % (37.0-47.0); Hemoglobin 12.4 g/dL (12.0-16.0); Mean Corp Hgb Conc. 33.9 g/dL (33.0-37.0); Mean Corpuscular Hgb 31.1 pg (27.0-31.0); Mean Corpuscular Volume 91.7 fL (81.0-99.0); Platelet Count 164 10^3/uL (130-400); Red Blood Cell Count 3.99 10^6/uL (4.20-5.40); Red Cell Dist. Width 13.9 % (11.5-14.5); White Blood Cell Count 9.6 10^3/uL (4.8-10.8)
[2024-05-20 07:23] VITALS: BP 145/74
[2024-05-20 07:27] LABS: Blood Urea Nitrogen 20 mg/dl (7-17); Calcium 9.1 mg/dl (8.4-10.2); Carbon Dioxide 26 mmol/L (22-30); Chloride 96 mmol/L (98-107); Estimated Creatinine Clearance 38 ml/min; Glucose 150 mg/dl (70-99); Potassium 3.3 mmol/L (3.5-5.1); Sodium 135 mmol/L (135-145); eGFR 41.83
--- NOTE | 2024-05-20 07:33 | PTCARENOTE ---
Patient arrived from ED to floor. Patient ambulated from stretcher to bed. Patient oriented to room, call martinez within reach, bed in lowest position. Will continue to monitor.
[2024-05-20 08:04] LABS: CEA 3.05 ng/ml
[2024-05-20] MEDS: DYAZIDE 1 CAPSULE PO (08:43)
[2024-05-20] MEDS: PROTONIX 40 MG PO ×2 (08:44→21:48)
[2024-05-20] MEDS: LOPRESSOR 50 MG PO (08:44)
[2024-05-20] MEDS: BENTYL 10 MG PO (08:45)
[2024-05-20] MEDS: CLARITIN CHILDREN'S 5 MG PO ×2 (08:45→21:49)
[2024-05-20] MEDS: KCL 160 MEQ IV (10:40)
--- NOTE | 2024-05-20 12:34 | CON.GI ---
Consultation
-
Date/Time Consultation Requested: 05/20/2024
Date/Time Consultation Performed: 05/20/2024
Requesting Provider: Dr Mcclure
Performing Provider: Dr Schuster
Reason for Consultation: constipation
Medical History
Chief Complaint / HPI
Chief Complaint: abd pain
History of Present Illness:
Faiza is a 78yo W with h/o remote thyroid ca and leiomyoma s/p BETINA/BSO 2015 who presents for few days of L sided flank pain. She reports h/o some constipation. Otherwise denies odynophagia, dysphagia, N/V, diarrhea or blood in stools. Her
last colonoscopy was 2016 Dr Ingram with benign polyp. 5 year recall was advised . She denies urgency or leakage of stools. She in the past had significant reflux and heartburn that resolved with para-esophageal hernia repair with posterior
partial fundoplication 2018. She does not use nsaids or anticoagulants.
Past Medical History
Past Medical History: Other (HTN, GERD, Hypothyroidism, Thyroid cancer s/p total thyroidectomy and ablation, IBS, pSVT, OA, obesity)
Past Surgical History: Other (Total L knee arthroplasty, total R knee arthroplasty, thyroidectomy, CYY, BETINA and BSO 2016, Adhenosiolysis)
Social History
Tobacco: Non-Smoker
Alcohol: None
Drug: None
Personal:
Living: With Family
Employment: Retired
Allergies / Home Medications
Allergy/AdvReac Type Severity Reaction Status Date / Time
codeine [Codeine] Allergy vomiting Verified 05/19/24 16:27
erythromycin base Allergy vomiting Verified 05/19/24 16:27
[Erythromycin Base]
hydrocodone [Hydrocodone] Allergy swelling, Verified 05/19/24 16:27
vomiting
Iodinated Contrast Media Allergy Swelling Verified 05/19/24 16:27
[IV Dye, Iodine Containing
Contrast ]
NSAIDS (Non-Steroidal Allergy INTERNAL Verified 05/19/24 16:27
Anti-Inflamma BLEEDING,
ANEMIA
oxycodone Allergy Vomiting Verified 05/19/24 16:27
�Medication �Instructions �Recorded
montelukast 10 mg tablet 10 mg PO QPM 03/31/11
triamterene 37.5 1 ea PO DAILY 03/31/11
mg-hydrochlorothiazide 25 mg tablet
Bifidobacterium infantis 4 mg 4 mg PO DAILY 08/30/17
capsule (Align (B.infantis))
escitalopram oxalate 10 mg tablet 10 mg PO HS 08/30/17
fexofenadine 60 mg tablet (Pushpa) 60 mg PO BID 08/30/17
levothyroxine 150 mcg tablet 150 mcg PO DAILY 08/30/17
metoprolol tartrate 100 mg tablet 100 mg PO BID 06/17/18
vlfefrrt-kgv-stweu acid 0.4 1 ea PO DAILY 06/17/18
mg-lycopene 300 mcg-lutein 250 mcg
tablet (Centrum Silver)
acetaminophen 325 mg tablet 650 mg (2 x 325 mg) PO Q4HPRN PRN 06/29/18
mild to moderate pain #0 tabs
pantoprazole 40 mg tablet,delayed 40 mg PO DAILY ##0 06/29/18
release
polyethylene glycol 3350 17 gram 17 grams PO DAILYPRN PRN 06/29/18
oral powder packet constipation #0 packets
prochlorperazine maleate 10 mg 10 mg PO Q6HPRN PRN 06/29/18
tablet nausea/vomiting #10 tabs
tramadol 50 mg tablet 25 - 50 mg (0.5 - 1 x 50 mg) PO 06/29/18
Q6HPRN PRN severe pain #14 tabs
Review of Systems
-
All other systems: A 12 pt ROS was Negative except as stated above in HPI
Vital Signs
Temp Pulse Resp BP Pulse Ox
98.8 F 60 18 145/74 96
05/20/24 07:23 05/20/24 07:23 05/20/24 07:23 05/20/24 07:23 05/20/24 07:23
Physical Exam
Exam
GEN: No acute distress, conversant, pleasant
HEENT: anicteric, extraocular movements intact, clear oropharynx without exudates
GI: soft, non-distended, mid periumbilical area tender to palpation, normal active bowel sounds, no hepatosplenomegaly
EXT: warm, well perfused, no edema bilaterally
NEURO: AAOx3, non-focal
Results
WBC 9.6 10^3/uL (4.8-10.8) 05/20/24 06:40
Hgb 12.4 g/dL (12.0-16.0) 05/20/24 06:40
Hct 36.6 % (37.0-47.0) L 05/20/24 06:40
MCV 91.7 fL (81.0-99.0) 05/20/24 06:40
Plt Count 164 10^3/uL (130-400) 05/20/24 06:40
Absolute Neuts (auto) 5.6 10^3/uL (1.4-6.5) 05/19/24 16:34
Sodium 135 mmol/L (135-145) 05/20/24 06:40
Potassium 3.3 mmol/L (3.5-5.1) L 05/20/24 06:40
Chloride 96 mmol/L (98-107) L 05/20/24 06:40
Carbon Dioxide 26 mmol/L (22-30) 05/20/24 06:40
BUN 20 mg/dl (7-17) H 05/20/24 06:40
Creatinine 1.3 mg/dL (0.6-1.0) H 05/20/24 06:40
Calcium 9.1 mg/dl (8.4-10.2) 05/20/24 06:40
Total Bilirubin 0.7 mg/dl (0.2-1.3) 05/19/24 16:34
AST 22 U/L (14-36) 05/19/24 16:34
ALT 17 U/L (0-35) 05/19/24 16:34
Alkaline Phosphatase 72 U/L (38-126) 05/19/24 16:34
Lipase 156 U/L (23-300) 05/19/24 16:34
Diagnostic Image Results:
CTAP There is a large heterogeneous, cystic lesion extending from the pelvis into the lower/mid abdomen measuring up to 18.9 x 14.8 x 16.9 cm. There is associated local mass effect. There are numerous additional mildly hypodense lesions with a large
left perirenal/retroaortic lesion measuring 13.4 x 9.4 x 13.2 cm. This obstructs the left ureter with associated moderate left-sided hydronephrosis. Findings are that of malignancy, possibly ovarian, with metastatic lymph nodes/soft tissue deposits.
\\
There is a 3.3 cm focus of nodular thickening along the sigmoid colon which may be related to a large adjacent lymph node, although a sigmoid mass is possible. Further evaluation with colonoscopy may be considered.
There are numerous smaller perirectal, presacral and retroperitoneal soft tissue nodules which are likely metastatic lymph nodes.
Assessment / Plan
-
78yo W with h/o uterine leiomyoma s/p BETINA/BSO 2015 who presents with abd pain found on CTAP to have large pelvic mass [id number] with L retroperitoneal mass causing urinary obstruction. GI consulted for sigmoid thickening. She has h/o IBS and
intermittently constipated
Impression
- Abd pain
Likely from large pelvic and RP mass with urinary obstruction
- Thickening in sigmoid
- IBS
- GERD
- HTN
- p SVT
- Hypothryoid
- Thyroid cancer s/p total thyroidectomy
- Obesity
- CYY
- H/o paraesophageal hernia repair
Recommendations
- Suspect abd pain is from large pelvic mass with L ureter obstruction
- For sigmoid thickening and intermittent constipation she may benefit from colonoscopy which can be done outpatient basis
- Miralax daily for constipation
- C/w protonix
- Appreciate urology and oncology recs
GI will sign off please call for ?
-
-
Thank you for consultation and allowing me to participate in the patient's care. Please call the loan operations manager GI physician during the after hours with any questions or concerns.
--- NOTE | 2024-05-20 12:36 | W.PN.HOSP.TC ---
Today's Communication/Plan
-
Awaiting home med recs
await thyroid studies
IVF if poor po intake
ppi
V Belt Inspector Onc input
Assessment / Plan
Assessment / Plan
IMPRESSION:
78-year-old comes in with 4 days of right-sided flank pain was found to have a new large cystic lesion extending from the pelvis into the lower midabdomen measuring about 19 cm in largest dimension with associated local mass effect and additional
hypodense lesions with a large left perirenal/retroaortic lesion measuring a 14 cm in largest extension which obstructs the left ureter with associated moderate left-sided hydronephrosis. In addition there is a 3.3 cm focus of nodular thickening
along the sigmoid colon which may be related to a large adjacent lymph node although a sigmoid mass is possible. UA is negative she shows no signs of an acute infection. Besides the pain she is otherwise asymptomatic.
PLAN:
Pelvic mass with urinary obstruction
(h/o leimomyoma) of uterine or ovarian origin, h/o BETINA/BSO in 2016 at [facility]
- Cr 1.4 similar to prior. U/A negative. No signs of acute infection otherwise.
- given urinary obstruction, urology on board.
- concern if for possible metastatic lesion
- check Ca 125 and CA 19-9 pending. CEA at 3
- pain control
- given lesion in colon, will get GI as this may be an approach to diagnostic testing
- TIP CEMENTER Onc Dr. Lugo also consulted
Primary HTN
-Hold BP meds
Nausea
-Cont ppi
-Start IVF if decrease po intake
Hypokalemia
-replete/moniotr
Thyroid cancer status post total thyroidectomy and radioablation
-TSH significantly elevated
-additional studies ordered per onc.
Awaiting home med recs
DVT PPX - lovenox
Code status - full code
d/w with spouse at bedside in details
Anticipated Discharge: > 48 hours
Subjective/Interval History
-
Date of Service: May 20, 2024
states of dry heaves
flank pain has decreased
states of decrease appetite
Objective Data
-
Labs:
Laboratory Results
05/20/24
06:40
WBC 9.6
Hgb 12.4
Hct 36.6 L
Plt Count 164
Sodium 135
Potassium 3.3 L
Chloride 96 L
Carbon Dioxide 26
BUN 20 H
Creatinine 1.3 H
Glucose 150 H
Calcium 9.1
Vital Signs:
Vital Signs
Temp Pulse Resp BP Pulse Ox
98.8 F 60 18 145/74 96
05/20/24 07:23 05/20/24 07:23 05/20/24 07:23 05/20/24 07:23 05/20/24 07:23
I&O
05/19/24 05/20/24 05/21/24
06:59 06:59 06:59
Intake Total 480 / 480
Balance 480 / 480
Physical Exam
-
General: Well Developed and No Apparent Distress
HEENT: Normocephalic, Atraumatic and Moist Mucous Membranes
Respiratory: Clear to Auscultation
Cardiac: Regular Rhythm and S1/S2; Negative Murmur, Rub or Gallop
GI: Soft, Nontender, Nondistended and Normal Bowel Sounds; Negative Organomegaly
Rectal: Deferred by Provider
Musculoskeletal: No Clubbing, No Cyanosis and No Edema
Skin: Negative Rash
Neuro: Awake and Nonfocal/Grossly Intact
Psych: Calm
Data Reviewed
-
Total Time Spent with Patient (in minutes): 55
[2024-05-20] MEDS: ZOFRAN 4 MG IV (14:09)
--- NOTE | 2024-05-20 15:08 | CM ---
Patient seen at bedside with willian Singer
IA completed
Lives in a 2 story home, 2 steps to enter, flight to second floor
PLOF: independent
DME: Walker, stair glide
Denies VN/has had rehab in past [place] for b/l knee replacement
PCP: Samson Davenport
PHARMACY: [facility]
PLAN: Home, currently no needs, continue to follow hospital progression
[2024-05-20 15:40] VITALS: BP 138/68
[2024-05-20] MEDS: MIRALAX 17 GRAMS PO (15:46)
[2024-05-20] MEDS: SINGULAIR 10 MG PO (18:08)
--- NOTE | 2024-05-20 20:20 | W.CON.GYNONC ---
Consultation
-
Requesting Provider: Matthew Miner
Reason for Consultation: Mass
Chief Complaint
-
left flank pain
History of Present Illness
78-year-old white female with past medical history significant for leiomyoma of body of uterus status post BETINA BSO ( at [facility] by Dr Amato) in 2016, history of hypertension, anemia, paroxysmal SVT, remote thyroid cancer status post
radioablation, history of irritable bowel syndrome, history of adhesions status post surgery presenting to the emergency department with left-sided flank pain for the last 4 days.
Patient reports acute onset of left-sided flank pain radiating to the abdomen and associated with nausea vomiting and currently only dry heaves due to decreased p.o. intake. She specifically denies having any dysuria, hematuria frequency or
urgency. She did not have any fevers or chills and did not feel quite this was a UTI. She denies any abdominal bloating. She denies any change in bowel habits which is notable for intermittent constipation and diarrhea.
She denies generalized symptoms such as weight loss, weight gain, diaphoresis, night sweats, shortness of breath or dyspnea on exertion. She denies any lower extremity swelling.
CT of the abdomen pelvis revealed large heterogeneous, cystic lesion extending from the pelvis into the lower/mid abdomen measuring up to 18.9 x 14.8 x 16.9 cm. There is associated local mass effect. There are numerous additional mildly hypodense
lesions with a large left perirenal/retroaortic lesion measuring 13.4 x 9.4 x 13.2 cm. This obstructs the left ureter with associated moderate left-sided hydronephrosis. Findings are that of malignancy, possibly ovarian, with metastatic lymph
nodes/soft tissue deposits. Also there is a 3.3 cm focus of nodular thickening along the sigmoid colon which may be related to a large adjacent lymph node, although a sigmoid mass is possible. Further evaluation with colonoscopy may be considered.
Medical History
Past Medical History
Past Medical History: Reports Other
Additional Past Medical History:
Thyroid cancer status post total thyroidectomy and radioablation
Hypertension
Paroxysmal SVT
Allergic rhinitis
GERD
History of leiomyoma status post BETINA/BSO
Hypothyroid
IBS
Past Surgical History: Reports Other
Additional Past Surgical History:
Total abdominal hysterectomy and bilateral salpingo-oophorectomy in 2016 (Dr Alireza Amato at [facility], Review of the op report suggests patient underwent midline laparotomy, large mass was emanating from posterior aspect of the uterus with blood
supply from presacral region as well as colonic mesentery. Final pathology is leiomyoma, cystic degeneration, hyalinization infarct with cellular features. 4200 g
Adhesiolysis
Cholecystectomy
Thyroidectomy
Total left knee arthroplasty
Total right knee arthroplasty
Paraesophageal hernia repair with mesh and posterior partial fundoplication 2018
Social History
Tobacco: Non-smoker
Alcohol: None
Drug: None
Personal:
Living: With Family
Employment: Retired
Family History
Family History: Not pertinent
Allergies / Home Medications
Allergies reflects when Allergies were last updated in [facility].
Home Medications with original date entered in [facility]
Allergy/Medication List:
Allergies
Allergy/AdvReac Type Severity Reaction Status Date / Time
codeine [Codeine] Allergy vomiting Verified 05/19/24 16:27
erythromycin base Allergy vomiting Verified 05/19/24 16:27
[Erythromycin Base]
hydrocodone [Hydrocodone] Allergy swelling, Verified 05/19/24 16:27
vomiting
Iodinated Contrast Media Allergy Swelling Verified 05/19/24 16:27
[IV Dye, Iodine Containing
Contrast ]
NSAIDS (Non-Steroidal Allergy INTERNAL Verified 05/19/24 16:27
Anti-Inflamma BLEEDING,
ANEMIA
oxycodone Allergy Vomiting Verified 05/19/24 16:27
Home Medications
montelukast 10 mg tablet 10 mg PO QPM 03/31/11
triamterene 37.5 mg-hydrochlorothiazide 25 mg tablet 1 ea PO DAILY 03/31/11
escitalopram oxalate 20 mg tablet 10 mg PO HS 08/30/17
fexofenadine 60 mg tablet (Pushpa) 60 mg PO BID 08/30/17
levothyroxine 150 mcg tablet 150 mcg PO DAILY 08/30/17
metoprolol tartrate 100 mg tablet 100 mg PO BID 06/17/18
pantoprazole 40 mg tablet,delayed release 40 mg PO twice daily
Imodium 2 mg tablet, 2 mg p.o. twice daily
Medical History
Allergies
Allergies reflect when allergies were last updated in [facility].
codeine [Codeine] Allergy (Verified 05/19/24 16:27)
vomiting
erythromycin base [Erythromycin Base] Allergy (Verified 05/19/24 16:27)
vomiting
hydrocodone [Hydrocodone] Allergy (Verified 05/19/24 16:27)
swelling, vomiting
Iodinated Contrast Media [IV Dye, Iodine Containing Contrast ] Allergy (Verified 05/19/24 16:27)
Swelling
NSAIDS (Non-Steroidal Anti-Inflamma Allergy (Verified 05/19/24 16:27)
INTERNAL BLEEDING, ANEMIA
oxycodone Allergy (Verified 05/19/24 16:27)
Vomiting
Physical Exam
Vital Signs / I&O
Vitals
Temp Pulse Resp BP Pulse Ox
98.2 F 67 17 138/68 97
05/20/24 15:40 05/20/24 15:40 05/20/24 15:40 05/20/24 15:40 05/20/24 15:40
I&O
05/18/24 05/19/24 05/20/24 05/21/24
06:59 06:59 06:59 06:59
Intake Total 480 / 480 960 / 960
Balance 480 / 480 960 / 960
Physical Exam
General: Well Developed and No Apparent Distress
HEENT: Normocephalic
Respiratory: Clear and Non Labored Respirations
Cardiac: S1/S2 and Regular Rhythm
Breast: Other (bilateral breast without masses, nodules, nipple discharge)
GI: Soft, Non Tender, Normal Bowel Sounds and Other (midline vertical incision)
Genito-urinary: Costovertebral Angle Tend
External Genitalia: Normal Urethra and Normal Labia
Vagina: Normal Mucosa
Cervix: Other (absent)
Uterus: Other (absent)
Adnexa: Abnormal and Other (Rectovaginal exam suggests presence of a cystic fullness at least 10 cm filling the posterior cul-de-sac)
Rectal: Normal Mucosa
Musculoskeletal: No Clubbing, No Cyanosis, No Edema and Other (bilateral knee scars)
Skin: Warm
Neuro: Awake, Alert, Oriented, AO x 3 and No Motor Deficits
Hematologic/Lymphatic: No Lymphadenopathy
Psych: Calm and Intact Judgement
Results
-
05/20/24 06:40
05/20/24 06:40
Data Reviewed
-
Diagnostic Radiology: Image personally visualized and interpreted
CT Scan: Image personally visualized and interpreted
Lab Data: Labs Reviewed
Old Records: Reviewed
Impression / Plan
-
This patient has at least 2 masses in the pelvis, as well as an additional left retroperitoneal mass based on CT scan that was done on admission, the CT was poor quality due to lack of IV or oral contrast.
I suggest we repeat her CT with IV and oral contrast. She admits to history of IV contrast allergy. She requires Medrol 32 mg p.o. 13 and 1 hour prior to scheduled study. Her creatinine level is reasonably okay to undergo CT with IV contrast
In addition an MRI of the pelvis is requested for better delineation as well as assessment of invasion of adjacent organs.
I will request interventional radiology to perform a percutaneous needle biopsy of the mass in order to determine histology
Her admission currently is due to left CVA tenderness which is secondary to left ureteral obstruction resulting in slight elevation of creatinine to 1.4, DION. He would be preferable if the patient can undergo cystoscopy with retrograde double-J
ureteral stent placement. Urology is already involved with the patient. If this is not feasible and fails then we need to consider percutaneous nephrostomy.
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 I will
consider surgical resection once we have optimization of her kidney function as well as confirmation of pathology. I did give the patient option of returning back to [facility] where she had original surgery if she desires. I do
not feel that surgical resection needs to be done during this admission, it is likely that she will also need resection of portion of large or small intestine depending on surgical findings intraoperatively.
I spoke to patient and her and both their questions were answered.
Govind Lugo MD
[employer] Oncology
[phone]
[2024-05-20] MEDS: LEXAPRO 10 MG PO (21:48)
[2024-05-20] MEDS: LOPRESSOR 100 MG PO (21:49)
[2024-05-20] MEDS: DILAUDID 0.25 MG IV (22:09)
[2024-05-20 23:48] VITALS: BP 137/68
[2024-05-21] MEDS: HEPARIN 5000 UNITS SC ×3 (00:47→17:40)
[2024-05-21] MEDS: SOLU-CORTEF 200 MG IV ×2 (04:15→08:29)
[2024-05-21] MEDS: SOLU-CORTEF IV (04:31)
--- NOTE | 2024-05-21 06:36 | W.PN.URO.CBU ---
Today's Communication / Plan
-
Rec: no urgent need for urosurgical intervention
IF pelvic surgery is to be pursued [by GynOnc or CRS] then retrograde placement of a left ureteral stent could be attempted.
Irad could be enlisted to place a left percutaneous nephrostomy tube to alleviate the obstruction and possibly pain.
Assessment / Plan
-
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
renal function remains satisfactory
pain has improved
Diagnosis
-
Date of Service: May 21, 2024
-
Patient Diagnosis:
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
renal function remains satisfactory
Subjective
-
left flank pain 'is much better'
Objective
-
Vital Signs
Temp Pulse Resp BP Pulse Ox
98.1 F 62 17 137/68 95
05/20/24 23:48 05/20/24 23:48 05/20/24 23:48 05/20/24 23:48 05/20/24 23:48
Intake and Output
05/19/24 05/20/24 05/21/24
06:59 06:59 06:59
Intake Total 480 / 480 960 / 960
Balance 480 / 480 960 / 960
Intake:
Oral fluids 480 / 480 960 / 960
Other:
Number of approximated MODERATE 1 3
amounts of urine
Laboratory Results
05/20/24 06:40
05/20/24 06:40
Physical Exam
-
General - no acute distress, supine in bed
[2024-05-21] MEDS: OMNIPAQUE 50 ML PO (06:42)
[2024-05-21] MEDS: SYNTHROID 150 MCG PO (06:42)
[2024-05-21 07:30] VITALS: BP 137/75
[2024-05-21] MEDS: BENADRYL 50 MG IV (08:29)
[2024-05-21] MEDS: CLARITIN CHILDREN'S 5 MG PO ×2 (08:44→21:21)
[2024-05-21 09:12] LABS: Blood Urea Nitrogen 23 mg/dl (7-17); Calcium 9.1 mg/dl (8.4-10.2); Carbon Dioxide 27 mmol/L (22-30); Chloride 95 mmol/L (98-107); Estimated Creatinine Clearance 38 ml/min; Glucose 144 mg/dl (70-99); Potassium 3.6 mmol/L (3.5-5.1); Sodium 131 mmol/L (135-145); eGFR 41.83
--- NOTE | 2024-05-21 10:13 | W.PN.HOSP.TC ---
Today's Communication/Plan
-
Await CT scan of the abdomen
Start patient on IV fluids
Await further oncology recs
Assessment / Plan
Assessment / Plan
IMPRESSION:
78-year-old comes in with 4 days of right-sided flank pain was found to have a new large cystic lesion extending from the pelvis into the lower midabdomen measuring about 19 cm in largest dimension with associated local mass effect and additional
hypodense lesions with a large left perirenal/retroaortic lesion measuring a 14 cm in largest extension which obstructs the left ureter with associated moderate left-sided hydronephrosis. In addition there is a 3.3 cm focus of nodular thickening
along the sigmoid colon which may be related to a large adjacent lymph node although a sigmoid mass is possible. UA is negative she shows no signs of an acute infection. Besides the pain she is otherwise asymptomatic.
PLAN:
Pelvic mass with urinary obstruction
(h/o leimomyoma) of uterine or ovarian origin, h/o BETINA/BSO in 2016 at [facility]
- Cr 1.3 similar to prior. U/A negative. No signs of acute infection otherwise.
- given urinary obstruction, urology on board. Neurology setting of ureteral stent during surgery and IR left PCN tube. Patient pain is currently well-managed. Patient understand need of PCN tube if with severe left-sided flank pain
- concern if for possible metastatic lesion
- check Ca 125 and CA 19-9 pending. CEA at 3
- pain control
-Plan for CT scan with p.o. and IV contrast prior oncology for better evaluation of the mass and other delineating structures. Oncology also recommended MRI of the pelvis which patient refused. Even offered medications prior to MRI however patient
absolutely refused and states she only does open MRI
-IRAD also consulted for image guided biopsy of the pelvic mass
-Gastroenterology signed off
-PODIATRIC ASSISTANT Onc Dr. Lugo also consulted
Primary HTN
-Hold BP meds
Nausea improving
-Cont ppi
-Start IVF
Hypokalemia
-replete/moniotr
Thyroid cancer status post total thyroidectomy and radioablation
-TSH significantly elevated. T4 normal. Thyroglobulin, and thyroglobulin antibody pending
-additional studies ordered per onc.
DVT PPX - lovenox
Code status - full code
d/w with spouse at bedside in details
Anticipated Discharge: > 48 hours
Subjective/Interval History
-
Date of Service: May 21, 2024
States she does talk to help desk technician and refused to undergo MRI
States of severe anxiety and possible phobia and states will only undergo open MRI
States of feeling lightheaded
States of decreased appetite
Denies severe left-sided flank pain
Objective Data
-
Labs:
Laboratory Results
05/21/24
08:15
Sodium 131 L
Potassium 3.6
Chloride 95 L
Carbon Dioxide 27
BUN 23 H
Creatinine 1.3 H
Glucose 144 H
Calcium 9.1
Vital Signs:
Vital Signs
Temp Pulse Resp BP Pulse Ox
98.0 F 64 18 137/75 97
05/21/24 07:30 05/21/24 07:30 05/21/24 07:30 05/21/24 07:30 05/21/24 07:30
I&O
05/20/24 05/21/24 05/22/24
06:59 06:59 06:59
Intake Total 480 / 480 1440 / 1440
Balance 480 / 480 1440 / 1440
Physical Exam
-
General: Well Developed and No Apparent Distress
HEENT: Normocephalic, Atraumatic and Moist Mucous Membranes
Respiratory: Clear to Auscultation
Cardiac: Regular Rhythm and S1/S2; Negative Murmur, Rub or Gallop
GI: Soft, Nontender, Nondistended and Normal Bowel Sounds; Negative Organomegaly
Rectal: Deferred by Provider
Musculoskeletal: No Clubbing, No Cyanosis and No Edema
Skin: Negative Rash
Neuro: Awake and Nonfocal/Grossly Intact
Psych: Calm
Data Reviewed
-
Total Time Spent with Patient (in minutes): 55
[2024-05-21] MEDS: LR 1000 IV (11:08)
[2024-05-21] MEDS: PROTONIX 40 MG PO ×2 (11:20→21:29)
[2024-05-21] MEDS: MIRALAX 17 GRAMS PO (11:20)
[2024-05-21] MEDS: LOPRESSOR 100 MG PO ×2 (12:28→21:28)
--- NOTE | 2024-05-21 13:09 | W.PN.ONC2 ---
Today's Communication / Plan
-
.
Impression
Impression
Pelvic mass and left RP masses with urinary obstruction
h/o leimomyoma of uterine or ovarian origin, h/o BETINA/BSO in 2016
Hx thyroid CA s/p radioactive iodine
Cancer-related pain
Hypothyroid
Plan
Plan
CT without contrast chest and CT ab/pelvis with IVC reviewed
Pelvic masses, f/u IR consult to consider IR guided bx
possible outpt colonoscopy.
Urology following to consider stent placement vs PCN
Pain management
CEA unremarkable at 3.05, await CA125 and CA 19-9.
antiemetics prn
Pt with history of thyroid cancer, marked TSH elevation, nml thyroxine (T4). f/u T3, T4, thyroglobulin, thyroglobulin Ab.
will follow along with you.
Subjective/Objective
Subjective
no new complaints
Vital Signs:
Vital Signs
Temp Pulse Resp BP Pulse Ox
98.0 F 80 18 135/66 97
05/21/24 07:30 05/21/24 12:28 05/21/24 07:30 05/21/24 12:28 05/21/24 07:30
Lab Results:
Laboratory Data
WBC 9.6 10^3/uL (4.8-10.8) 05/20/24 06:40
Hgb 12.4 g/dL (12.0-16.0) 05/20/24 06:40
Plt Count 164 10^3/uL (130-400) 05/20/24 06:40
eGFR 41.83 05/21/24 08:15
[2024-05-21 16:00] VITALS: BP 139/72
--- NOTE | 2024-05-21 16:45 | PTCARENOTE ---
patient reports left flank pain improved, although oral intake poor, independent in room, vss, will continue to monitor.
[2024-05-21] MEDS: SINGULAIR 10 MG PO (17:39)
[2024-05-21 19:11] LABS: Thyroglobulin 0.1 ng/mL (1.3-31.8); Thyroglobulin Antibodies 1.8 IU/mL (0.0-4.0)
[2024-05-21] MEDS: LEXAPRO 10 MG PO (21:29)
[2024-05-21] MEDS: DILAUDID 0.25 MG IV (21:48)
[2024-05-21 23:22] LABS: CA 19-9 24 U/mL (<=35)
[2024-05-21 23:58] VITALS: BP 135/69
[2024-05-22] MEDS: HEPARIN 5000 UNITS SC ×4 (00:13→23:57)
[2024-05-22] MEDS: LR 1000 IV ×2 (00:13→12:31)
[2024-05-22] MEDS: SYNTHROID 150 MCG PO (05:23)
[2024-05-22 06:11] LABS: % Basophils 0.1 % (0-2); % Eosinophils 0.1 % (0-6); % Immature Granulocytes 0.5 % (0-0.5); % Lymphocytes 15.2 % (20.5-51.1); % Monocytes 9.8 % (1.7-9.3); % Neutrophils 74.3 % (42.2-75.2); Absolute Immature Granulocytes 0.1 10^3/uL (0-0.05); Absolute Lymphocytes 1.6 10^3/uL (1.2-3.4); Absolute Neutrophils 7.6 10^3/uL (1.4-6.5); Hematocrit 35.3 % (37.0-47.0); Hemoglobin 12.1 g/dL (12.0-16.0); Mean Corp Hgb Conc. 34.3 g/dL (33.0-37.0); Mean Corpuscular Hgb 31.8 pg (27.0-31.0); Mean Corpuscular Volume 92.9 fL (81.0-99.0); Mean Platelet Volume 11.1 fL (7.4-10.4); Nucleated Red Blood Cells % 0 %; Platelet Count 151 10^3/uL (130-400); Red Cell Dist. Width 14.1 % (11.5-14.5); White Blood Cell Count 10.2 10^3/uL (4.8-10.8)
[2024-05-22 06:44] LABS: Blood Urea Nitrogen 22 mg/dl (7-17); Calcium 9.1 mg/dl (8.4-10.2); Carbon Dioxide 30 mmol/L (22-30); Estimated Creatinine Clearance 38 ml/min; Glucose 132 mg/dl (70-99); eGFR 41.83
[2024-05-22 06:54] LABS: Chloride 93 mmol/L (98-107); Potassium 3.5 mmol/L (3.5-5.1); Sodium 131 mmol/L (135-145)
[2024-05-22 07:30] VITALS: BP 141/71
[2024-05-22] MEDS: CLARITIN CHILDREN'S 5 MG PO ×2 (08:13→21:46)
[2024-05-22] MEDS: PROTONIX 40 MG PO ×2 (08:14→21:43)
[2024-05-22] MEDS: LOPRESSOR 100 MG PO (08:14)
[2024-05-22] MEDS: MIRALAX 17 GRAMS PO (08:14)
[2024-05-22] MEDS: TORADOL 15 MG IV ×2 (08:23→19:40)
[2024-05-22] MEDS: PINK BISMUTH 525 MG PO (08:51)
--- NOTE | 2024-05-22 09:04 | W.PN.ONC2 ---
Documented by User: CHIQUI Hawthorne 05/22/24 11:40
Today's Communication / Plan
-
.
Impression
Impression
Pelvic mass and left RP masses with urinary obstruction
h/o leimomyoma of uterine or ovarian origin, h/o BETINA/BSO in 2016
Hx thyroid CA s/p radioactive iodine -marked TSH elevation, low thyroglobulin, nml thyroglobulin Ab, nml thyroxine (T4)
Cancer-related pain
Hypothyroid
claustrophobia -will need open MRI
Plan
Plan
CT without contrast chest and CT ab/pelvis with IVC reviewed
Pelvic masses, f/u IR consult to consider IR guided bx
possible outpt colonoscopy.
Urology following to consider stent placement vs PCN
Pain management
CEA and Ca 19.9 unremarkable, await CA125
antiemetics prn
Pt request MRI of the pelvis outpatient via open MRI due to claustrophobia
will follow along with you.
Subjective/Objective
Subjective
left ab/flank/back pain overnight improved with prn analgesic
Vital Signs:
Vital Signs
Temp Pulse Resp BP Pulse Ox
98.0 F 61 16 141/71 97
05/22/24 07:30 05/22/24 07:30 05/22/24 07:30 05/22/24 07:30 05/22/24 07:30
Lab Results:
Laboratory Data
WBC 10.2 10^3/uL (4.8-10.8) 05/22/24 05:50
Hgb 12.1 g/dL (12.0-16.0) 05/22/24 05:50
Plt Count 151 10^3/uL (130-400) 05/22/24 05:50
eGFR 41.83 05/22/24 05:50
Physical Exam
HEENT: Moist Mucous Membranes; No Jaundice
Pulmonary: Clear
GI: Soft
Extremities: Pulses Present; No Edema

Documented by User: Larisa Calloway MD 05/22/24 19:16
Today's Communication / Plan
-
Case d/w Dr. Lugo. He was able to review the path from 'leiomyoma' resection at [facility] a few years ago. 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
Await path.
[2024-05-22 09:11] LABS: INR 1.14; PT 14.9 Sec (11.4-14.6)
--- NOTE | 2024-05-22 13:20 | W.PN.HOSP.TC ---
Today's Communication/Plan
-
IR biopsy today
Follow-up CA 125
IV fluids
Analgesics and antiemetics
Urology for consideration of ureteral stent first PCN
Assessment / Plan
Assessment / Plan
#Pelvic mass with urinary obstruction
#H/O uterine leiomyoma s/p BETINA/BSO
-Unclear etiology though concern for recurrent uterine leiomyoma versus other malignancy
-Initial CT A/P without contrast showed large heterogenous cystic lesion of the lower mid abdomen (18.9 x 14.8 x 16.9 cm) with evidence of retroperitoneal lesions of the left side
-CT A/P with contrast showed multiple heterogenous soft tissue masses in the abdomen and pelvis, mentions possible sarcomatous mass which often is associated with left obstructive uropathy
-CA 19�9 levels unremarkable as were CEA levels; CA125 still pending
-Renal function has remained stable throughout hospitalization
-IR consulted with plan for biopsy and pathology today
-Patient will have pelvic MRI as OP in open setting
-Urology following for consideration of PCN versus stent
Plan
-Follow-up IR guided biopsy and CA125 levels
-Trend BMP and UOP for signs of worsening obstruction
-Plan for outpatient open MRI of the pelvis
-Continue with as needed analgesia, increased Dilaudid dose today
#Iatrogenic hypothyroidism
#H/O thyroid cancer s/p radioablation
-Labs here with TSH 61.5, thyroglobulin 0.1, normal T4
-Home regimen includes levothyroxine 150 mcg daily
-Will increase levothyroxine to 200 mcg daily for now
-Ensure she is taking it 30 minutes prior to meals in the morning
-Repeat TSH in 2 to 4 weeks
#Hypovolemic hyponatremia
-Patient states she has had poor appetite for over a week, associated with nausea
-Sodium here 131 over the last 2 lab draws, was near 135 previously
-Started on IV fluids and antiemetics; nausea slightly improved
-Continue IVF and trend BMP
-Consider urine studies if worsening
-Encourage oral solute intake
#CKD stage III
-Baseline creatinine likely near 1.3
-Creatinine here has been stable at 1.3-1.4 over 4 different lab draws
-Will continue to trend BMP in the context of obstructive uropathy
-Avoid nephrotoxic agents
#Primary hypertension
-No known history of hypertensive systemic disease
-Home regimen includes metoprolol tartrate, triamterene, HCTZ
-Blood pressure here adequate
#GERD
-Continue with home PPI
DVT prophylaxis: Subcu heparin
Diet: N.p.o. pending biopsy
CODE STATUS: Full code
Anticipated Discharge: > 48 hours
Subjective/Interval History
-
Date of Service: May 22, 2024
Seen and examined at the bedside. No acute events reported overnight. AFVSS this morning
Patient currently n.p.o. pending IR biopsy today.
She denies any acute complaints this morning.
Objective Data
-
Labs:
Laboratory Results
05/22/24 05/22/24
05:50 08:53
WBC 10.2
Hgb 12.1
Hct 35.3 L
Plt Count 151
PT 14.9 H
INR 1.14
Sodium 131 L
Potassium 3.5
Chloride 93 L
Carbon Dioxide 30
BUN 22 H
Creatinine 1.3 H
Glucose 132 H
Calcium 9.1
Vital Signs:
Vital Signs
Temp Pulse Resp BP Pulse Ox
98.0 F 61 16 141/71 97
05/22/24 07:30 05/22/24 07:30 05/22/24 07:30 05/22/24 07:30 05/22/24 07:30
I&O
05/21/24 05/22/24 05/23/24
06:59 06:59 06:59
Intake Total 0 / 1440 1899
Balance 1440 / 1440 1899
Review of Systems
-
History Source: Patient
All other systems: Reviewed and negative
Physical Exam
-
General: Well Developed, No Apparent Distress, Comfortable and Obese
HEENT: Normocephalic, Atraumatic, Moist Mucous Membranes and Anicteric
Respiratory: Clear to Auscultation and Non Labored Respirations
Cardiac: Regular Rhythm and S1/S2; Negative Murmur, Rub or Gallop
GI: Soft, Nontender, Nondistended, Normal Bowel Sounds and Organomegaly (Large suprapubic mass on palpation)
Musculoskeletal: No Clubbing, No Cyanosis and No Edema
Skin: Warm and Dry; Negative Rash
Neuro: AO x 3 and Nonfocal/Grossly Intact
Psych: Calm
Data Reviewed
-
Labs: Labs Reviewed by me and Discussed with Patient
--- NOTE | 2024-05-22 13:27 | W.PN.URO.CBU ---
Today's Communication / Plan
-
will await further imaging/biopsy/marketing services vice president-onc plans to determine if/when left ureteral stenting would be attempted.
Assessment / Plan
-
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
renal function remains satisfactory
pain has improved
Diagnosis
-
Date of Service: May 22, 2024
-
Patient Diagnosis:
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
renal function remains satisfactory
Objective
-
Vital Signs
Temp Pulse Resp BP Pulse Ox
98.0 F 61 16 141/71 97
05/22/24 07:30 05/22/24 07:30 05/22/24 07:30 05/22/24 07:30 05/22/24 07:30
Intake and Output
05/21/24 05/22/24 05/23/24
06:59 06:59 06:59
Intake Total 1440 / 1440 1900 / 1900
Balance 1440 / 1440 1900 / 1900
Intake:
Oral fluids 1440 / 1440 1260 / 1260
IV fluids (Total) 640 / 640
Other:
Number of approximated MODERATE 2 4
amounts of urine
Number of approximated LARGE 5
amounts of urine
Laboratory Results
05/22/24 05:50
05/22/24 05:50
Physical Exam
-
General - well developed, well nourished, no acute distress
Chest - clear bilaterally
Abdomen - soft, non-tender, positive bowel sounds, no CVAT, no incisional pain or distention
Genitalia - normal
Rectal - normal
Skin - warm & dry with no rash
Neuro - AOx3, no motor deficits
Extremities - no clubbing, no cyanosis, no edema
Incision - clean, dry
Dressing - clean, dry, intact
[2024-05-22 14:34] VITALS: BP 135/62; BP_SYST 61
[2024-05-22 15:40] VITALS: BP 111/71; BP_SYST 67
[2024-05-22 15:45] VITALS: BP 106/57; BP_SYST 64
[2024-05-22 15:49] VITALS: BP 100/79; BP_SYST 74
[2024-05-22 16:06] VITALS: BP 123/77
[2024-05-22] MEDS: SINGULAIR 10 MG PO (17:50)
[2024-05-22 19:26] LABS: CA 125 107 U/mL (0-35)
--- NOTE | 2024-05-22 21:00 | W.PN.UPDATE ---
Update Note
Progress Note Update
Patient requested to change her metoprolol dose from 100mg bid to 50mg bid as the dose was decreased in Jan/Feb by Dr. Martinez. Order changed.
[2024-05-22] MEDS: LOPRESSOR 50 MG PO (21:46)
[2024-05-22] MEDS: MELATONIN 5 MG PO (21:47)
[2024-05-22] MEDS: LEXAPRO 10 MG PO (21:47)
[2024-05-22] MEDS: ULTRAM 50 MG PO (21:53)
[2024-05-22] MEDS: LOPRESSOR PO (21:56)
[2024-05-23 00:02] VITALS: BP 120/71
--- NOTE | 2024-05-23 05:35 | W.PN.GYNONC ---
Addendum entered and electronically signed by Govind Lugo MD 05/23/24 20:27:
Preliminary path results by Dr Uribe:
Smooth muscle neoplasmby morphology and IHC, ie a leiomyoma.
No cytologic atypia , tumor necrosis or atypia is identified
Ki67 proliferative index is <1%
It does not qualify as a smooth muscle tumor of undetermined malignant potential
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
Govind Lugo. <D
Addendum entered and electronically signed by Govind Lugo MD 05/23/24 11:45:
After further speaking with the patient, she continues to have colicky pain involving the left flank, in addition she has waves of nausea and lack of appetite. It is unclear to me how much of the symptoms are related to tumors in the abdomen versus
potentially renal obstruction. I spoke to Dr. Moe who is willing to proceed with ureteral stenting tomorrow. If this is not feasible or successful we will likely need to ask interventional radiology to place a percutaneous nephrostomy and
perhaps advance a ureteral catheter into the bladder antegradely.
Given Age of 79 and likely need for extensive abdominal surgery I would like to also ask cardiology to evaluate her and cleared her for surgery.
Original Note:
Today's Communication
-
N/A
Impression / Plan
-
New CT with IV and po contrast much more illuminating of the extent of disease
Small volume free fluid is seen in the abdomen particularly perihepatic and in the paracolic gutters.
1. midline to the left lower abdominal heterogeneous soft tissue mass measuring 11.9 x 18.6 x 7.7 cm axial image 65 series 201
2. caudal to the left kidney and slightly displacing superiorly measuring 14.3 x 12.2 x 10.8 cm,
3. smaller heterogeneous approximate midline soft tissue mass, image 53 anterior to the occipital common iliac arteries bilaterally measuring 5.3 x 5.2 x 5.4 cm,
4. smaller heterogeneous more hypoechoic mass along the anterior border of the left psoas muscle image 53 measuring 3.5 x 3.0 x 3.3 cm,
5. mass in the right lower quadrant extending into the right true pelvis measuring at least 14.3 x 12.7 x 12.5 cm, image 65 series 201 and coronal reformatted image 29 with extrinsic impression upon the urinary bladder superiorly,
6. smaller mass at least contiguous with the sigmoid colon, image 67 series 201 and coronal reformatted image 32 measuring 2.8 x 3.0 x 2.7 cm,
7. posterior pelvic mass along the right side of the rectum, image 76 series 201 and coronal reformatted image 52 measuring 3.7 x 3.8 x 3.8 cm and 8.smaller mass in the posterior true pelvis to the left of the rectum, image 75 series 201 coronal
reformatted image 53 measuring 2.1 x 1.7 x 2.0 cm.
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
Her left ureteral obstruction should be managed with a PCN v JJ stent to preserve renal function and prevent worsening symptoms and loss of GFR.
We can discuss surgical resection after path is completed, obviously it will be complicated and will likely require one or more bowel resections given CT appearance.
We do need cardiac clearance prior to surgery
I spoke to patient and her and both their questions were answered.
Govind Lugo MD
LIVESTOCK INSPECTOR Oncology
[phone]
Subjective / Interval History
-
s/p CT guided biopsy of mass
pain is better
unable to do MRI due to clauterophobia
Objective Data
-
Lab Results:
path pending
Physical Exam
Vital Signs / I&O
Vitals
Temp Pulse Resp BP Pulse Ox
97.5 F 75 16 120/71 97
05/23/24 00:02 05/23/24 00:02 05/23/24 00:02 05/23/24 00:02 05/23/24 00:02
I&O
05/20/24 05/21/24 05/22/24 05/23/24
06:59 06:59 06:59 06:59
Intake Total 480 / 480 1440 / 1440 1900 / 1900 1470 / 1470
Balance 480 / 480 1440 / 1440 1900 / 1900 1470 / 1470
[2024-05-23] MEDS: SYNTHROID 200 MCG PO (05:44)
[2024-05-23 06:05] LABS: % Basophils 0.1 % (0-2); % Eosinophils 0.3 % (0-6); % Immature Granulocytes 0.6 % (0-0.5); % Monocytes 10.5 % (1.7-9.3); % Neutrophils 69.5 % (42.2-75.2); Absolute Immature Granulocytes 0.1 10^3/uL (0-0.05); Absolute Lymphocytes 1.6 10^3/uL (1.2-3.4); Absolute Monocytes 0.9 10^3/uL (0.1-0.6); Hematocrit 33.1 % (37.0-47.0); Hemoglobin 11.1 g/dL (12.0-16.0); Mean Corp Hgb Conc. 33.5 g/dL (33.0-37.0); Mean Corpuscular Hgb 31.4 pg (27.0-31.0); Mean Corpuscular Volume 93.5 fL (81.0-99.0); Mean Platelet Volume 11.7 fL (7.4-10.4); Nucleated Red Blood Cells % 0 %; Platelet Count 150 10^3/uL (130-400); Red Blood Cell Count 3.54 10^6/uL (4.20-5.40); Red Cell Dist. Width 14.1 % (11.5-14.5); White Blood Cell Count 8.6 10^3/uL (4.8-10.8)
[2024-05-23 06:26] LABS: Blood Urea Nitrogen 26 mg/dl (7-17); Calcium 8.5 mg/dl (8.4-10.2); Carbon Dioxide 30 mmol/L (22-30); Chloride 93 mmol/L (98-107); Estimated Creatinine Clearance 36 ml/min; Glucose 114 mg/dl (70-99); Potassium 3.3 mmol/L (3.5-5.1); Sodium 132 mmol/L (135-145); eGFR 38.27
[2024-05-23 07:41] VITALS: BP 138/69
[2024-05-23] MEDS: MIRALAX 17 GRAMS PO (09:18)
[2024-05-23] MEDS: LOPRESSOR 50 MG PO ×2 (09:18→21:09)
[2024-05-23] MEDS: HEPARIN 5000 UNITS SC ×3 (09:18→23:08)
[2024-05-23] MEDS: CLARITIN CHILDREN'S 5 MG PO ×2 (09:19→21:09)
[2024-05-23] MEDS: PROTONIX 40 MG PO ×2 (09:20→21:09)
[2024-05-23] MEDS: TORADOL 15 MG IV (09:36)
[2024-05-23] MEDS: KLOR-CON 40 MEQ PO ×2 (09:55→17:36)
--- NOTE | 2024-05-23 10:40 | W.PN.URO.CBU ---
Today's Communication / Plan
-
at time of Mortgage Closing Clerk-Onc surgical intervention, will attempt placement of retrograde ureteral stents
Assessment / Plan
-
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
renal function remains satisfactory
pain is tolerable
Diagnosis
-
Date of Service: May 23, 2024
-
Patient Diagnosis:
Pelvic and Retroperitoneal masses, latter causing obstruction of left proximal ureter -- suspected pelvic malignancy with RP LAD
renal function remains satisfactory
Objective
-
Vital Signs
Temp Pulse Resp BP Pulse Ox
97.8 F 61 16 138/69 98
05/23/24 07:41 05/23/24 09:18 05/23/24 07:41 05/23/24 09:18 05/23/24 07:41
Intake and Output
05/22/24 05/23/24 05/24/24
06:59 06:59 06:59
Intake Total 1900 / 1900 2430 / 2430
Balance 1900 / 1900 2430 / 2430
Intake:
Oral fluids 1260 / 1260 1200 / 1200
IV fluids (Total) 640 / 640 1230 / 1230
Other:
Number of approximated MODERATE 4 5
amounts of urine
Number of approximated LARGE 5
amounts of urine
How many times incontinent 1
MODERATE amount urine
Laboratory Results
05/23/24 05:41
05/23/24 05:41
Physical Exam
-
General - well developed, well nourished, no acute distress
Chest - clear bilaterally
Abdomen - soft, non-tender, positive bowel sounds, no CVAT, no incisional pain or distention
Genitalia - normal
Rectal - normal
Skin - warm & dry with no rash
Neuro - AOx3, no motor deficits
Extremities - no clubbing, no cyanosis, no edema
Incision - clean, dry
Dressing - clean, dry, intact
[2024-05-23] MEDS: ULTRAM 50 MG PO (11:36)
--- NOTE | 2024-05-23 11:39 | W.PN.HOSP.TC ---
Today's Communication/Plan
-
Cardiology consult for preoperative evaluation
N.p.o. after midnight for planned ureteral stent tomorrow
Follow-up liver pathology
Trend BMP
Transition away from NSAIDs for pain relief
Assessment / Plan
Assessment / Plan
#Pelvic mass with urinary obstruction
#H/O uterine leiomyoma s/p BETINA/BSO
-Unclear etiology though concern for recurrent uterine leiomyoma versus other malignancy such as sarcoma; CA125 levels were elevated though not drastically
-Initial CT A/P without contrast showed large heterogenous cystic lesion of the lower mid abdomen (18.9 x 14.8 x 16.9 cm) with evidence of retroperitoneal lesions of the left side
-CT A/P with contrast showed multiple heterogenous soft tissue masses in the abdomen and pelvis, mentions possible sarcomatous mass which often is associated with left obstructive uropathy
-CA 19�9 levels unremarkable as were CEA levels
-Renal function has remained stable throughout hospitalization
-Patient will have pelvic MRI as OP in open setting
-Urology following for consideration of PCN versus stent
Plan
-Follow-up pathology from IR guided biopsy 05/22
-Trend BMP and UOP for signs of worsening obstruction
-Plan for outpatient open MRI of the pelvis
-Continue with as needed analgesia, avoid NSAID as possible
-Likely ureteral stenting on 05/24 with urology, n.p.o. after midnight
-Cardiology consult for preoperative eval with anticipated intra-abdominal procedure
#Iatrogenic hypothyroidism
#H/O thyroid cancer s/p radioablation
-Labs here with TSH 61.5, thyroglobulin 0.1, normal T4
-Home regimen includes levothyroxine 150 mcg daily
-Will increase levothyroxine to 200 mcg daily for now
-Ensure she is taking it 30 minutes prior to meals in the morning
-Repeat TSH in 4 weeks
#Hypovolemic hyponatremia
-Patient states she has had poor appetite for over a week, associated with nausea
-Sodium here 131 over the last 2 lab draws, was near 135 previously
-Started on IV fluids and antiemetics; nausea slightly improved
-Continue IVF and trend BMP
-Consider urine studies if worsening
-Encourage oral solute intake
#CKD stage III
-Baseline creatinine likely near 1.3
-Creatinine here has been stable at 1.3-1.4 over 4 different lab draws
-Will continue to trend BMP in the context of obstructive uropathy
-Avoid nephrotoxic agents
#Primary hypertension
-No known history of hypertensive systemic disease
-Home regimen includes metoprolol tartrate, triamterene, HCTZ
-Blood pressure here adequate
#GERD
#H/O GI bleeding
-Home regimen includes twice daily PPI
-Appears to have a history of UGIB with previous EGD
-Was told to avoid NSAIDs; has been receiving IV Toradol here
-Will try to transition away from Toradol to Tylenol with tramadol
DVT prophylaxis: Subcu heparin
Diet: Regular
CODE STATUS: Full code
Anticipated Discharge: 24 - 48 hours
Subjective/Interval History
-
Date of Service: May 23, 2024
Seen and examined at the bedside. No acute events reported overnight. AFVSS this morning
Denies any significant post-Bx pain today. States she does still get nauseous with opiates, trying to avoid Dilaudid
Patient states that she does have history of GI bleeding and was told not to take NSAIDs
Objective Data
-
Labs:
Laboratory Results
05/23/24
05:41
WBC 8.6
Hgb 11.1 L
Hct 33.1 L
Plt Count 150
Sodium 132 L
Potassium 3.3 L
Chloride 93 L
Carbon Dioxide 30
BUN 26 H
Creatinine 1.4 H
Glucose 114 H
Calcium 8.5
Vital Signs:
Vital Signs
Temp Pulse Resp BP Pulse Ox
97.8 F 61 16 138/69 98
05/23/24 07:41 05/23/24 09:18 05/23/24 07:41 05/23/24 09:18 05/23/24 07:41
I&O
05/22/24 05/23/24 05/24/24
06:59 06:59 06:59
Intake Total 1899
Balance 1899
Review of Systems
-
History Source: Patient
All other systems: Reviewed and negative
Physical Exam
-
General: Well Developed, Well Nourished, No Apparent Distress and Comfortable
HEENT: Normocephalic, Atraumatic and Moist Mucous Membranes
Respiratory: Clear to Auscultation and Non Labored Respirations
Cardiac: Regular Rhythm and S1/S2; Negative Murmur, Rub or Gallop
GI: Nontender, Nondistended, Normal Bowel Sounds and Other (Firmness in the lower abdomen with nodular quality)
Musculoskeletal: No Clubbing, No Cyanosis and No Edema
Skin: Warm, Dry and Normal Turgor; Negative Rash or Jaundice
Neuro: AO x 3 and Nonfocal/Grossly Intact; Negative Tremors
Psych: Calm
Data Reviewed
-
Labs: Labs Reviewed by me, Discussed with Physician (Foundation Digger-Onc and Urology attendings) and Discussed with Patient
--- NOTE | 2024-05-23 12:02 | CM ---
CM following for discharge to home when medically stable.
No need for SNF or home health identified.
Plan: Discharge to home with no needs.
--- NOTE | 2024-05-23 12:43 | CON.CAR ---
Addendum entered and electronically signed by Santos Ratliff MD 05/23/24 14:28:
78-year-old woman admitted with pelvic mass and L ureteral obstruction, underwent IR biopsy yesterday, will need CLINICAL APPLICATION SPECIALIST-ONC surgical intervention next week. Tentatively for placement of left ureteral stent 05/24/2024. Her exercise capacity is limited.
She does little more than climb stairs, does not walk great distances, occasionally has mild MCCARTHY but usually not with limited exercise capacity no other cardiac symptoms, SVT has been stable.
PMH:Thyroid cancer, total thyroidectomy and I-131, hypertension, history of SVT, GERD, hypothyroidism, irritable bowel
PSH: Prior BETINA/BSO for leiomyoma 2015, lysis of adhesions, cholecystectomy, bilateral total knees, paraesophageal hernia repair with fundoplication
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
FH: Not pertinent
Home Meds: Reviewed, on metoprolol 50 mg twice daily
138/69, pulse 61, respirate 16, afebrile sats 98%, no acute distress, pleasant, head neck exam unremarkable, lungs are clear, very soft systolic murmur at apex JVD okay carotids okay, distal pulses okay no edema
Hemoglobin 11.1, white count 8.6, platelets are 150, potassium is 3.3,
sodium is 132, BUN and creatinine are 26 and 1.4, stable
ECG pending
Echo: Pending
Plan:
She seems stable from a cardiac standpoint. It is difficult to assess her functional capacity as her ADLs are limited. However, within the limits of how she performs she has no significant cardiac symptoms. She can proceed as planned with
ureteral stent placement at low cardiac risk.
Given the urgent but not emergent nature of her planned CLINICAL APPLICATION SPECIALIST/oncologic surgery, additional testing beyond echocardiography and ECG should be avoided and she can proceed as planned with laparotomy and debulking of pelvic mass at acceptable cardiac
risk.
Metoprolol should be continued perioperatively. Other medications can be given or held at the discretion of anesthesia and surgery. We will continue to follow.
Original Note:
Consultation
Consultation Request
Date/Time Consultation Requested: 05/23/2024
Date/Time Consultation Performed: 05/23/2024
Requesting Provider: Dr. Marie
Performing Provider: Armida Marie PA-C for Dr. Santos Ratliff
Reason for Consultation: Pre-operative clearance
Medical History
-
History of Present Illness:
Patient is a 78-year-old female with a past medical history significant for paroxysmal SVT, paroxysmal atrial flutter, IBS, paralyzed right hemidiaphragm, hypertension, hypothyroidism secondary to thyroid cancer with thyroidectomy, irritable bowel
syndrome, asthma, anxiety and depression, leiomyoma of body of uterus status post total abdominal hysterectomy in 2015 and robotic assisted laparoscopic paraesophageal hernia repair with mesh and partial fundoplication June 2018 who presented to
emergency department 05/19/2024 with left-sided abdominal pain associated with nausea, vomiting and poor oral intake for several days prior to admission. Imaging of her abdomen demonstrated multiple heterogeneous soft tissue masses in abdomen and
pelvis with left obstructive uropathy. She underwent IR guided biopsy 05/22/24 with pathology pending. Ongoing discussion regarding surgical intervention of masses and/or urethral stenting by urology. Cardiology being asked to see patient for
preoperative risk assessment.
Patient last seen in cardiology office in December 2023 complaining of dyspnea on exertion. She was noted to be bradycardic on high-dose beta-yon therapy. Lopressor was reduced to 50 mg twice a day and patient noted improvement of dyspnea.
She reports no significant increase in palpitations/SVT or PAF on low-dose beta-yon. She reports she is not overly active but is able to do cooking and light chores around the house including vacuuming and mopping the floors. She does get
winded with moderate or prolonged activity. She denies chest pain, dizziness, lightheadedness, orthopnea, PND or edema.
PMH:
Paroxysmal SVT
Paroxysmal atrial flutter
Hypertension
Thyroid cancer status post total thyroidectomy and radioablation
Elevated right susy-diaphragm
History of UGIB
Allergic rhinitis
GERD
History of leiomyoma status post BETINA/BSO
Hypothyroid
IBS
Asthma
Anxiety/depression
Past Medical History
Past Medical History: Other (See HPI)
Past Surgical History: Appendectomy (1949), Cholecystectomy (1993), Gynecological (leiomyoma/fibroid status post BETINA/BSO), Orthopedic (bilateral knee replacements) and Other (cataract extraction, thyroidectomy 1994, Robotic assisted laparoscopic
paraesophageal hernia repair w/ mesh and partial fundoplication 06/2018)
Social History
Tobacco: Non-Smoker
Alcohol: None
Drug: None
Personal:
Living: With Family
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
Family History
Family History: Adopted
Allergies / Home Medications
Allergy/AdvReac Type Severity Reaction Status Date / Time
codeine [Codeine] Allergy vomiting Verified 05/19/24 16:27
erythromycin base Allergy vomiting Verified 05/19/24 16:27
[Erythromycin Base]
hydrocodone [Hydrocodone] Allergy swelling, Verified 05/19/24 16:27
vomiting
Iodinated Contrast Media Allergy Swelling Verified 05/19/24 16:27
[IV Dye, Iodine Containing
Contrast ]
NSAIDS (Non-Steroidal Allergy INTERNAL Verified 05/19/24 16:27
Anti-Inflamma BLEEDING,
ANEMIA
oxycodone Allergy Vomiting Verified 05/19/24 16:27
�Medication �Instructions �Recorded �Confirmed �Type
montelukast 10 mg tablet 10 mg PO QPM 03/31/11 05/20/24 History
triamterene 37.5 1 ea PO DAILY 03/31/11 05/20/24 History
mg-hydrochlorothiazide 25 mg tablet
Bifidobacterium infantis 4 mg 4 mg PO DAILY 08/30/17 05/20/24 History
capsule (Align (B.infantis))
escitalopram oxalate 10 mg tablet 10 mg PO HS 08/30/17 05/20/24 History
fexofenadine 60 mg tablet (Pushpa) 60 mg PO BID 08/30/17 05/20/24 History
levothyroxine 150 mcg tablet 150 mcg PO DAILY 08/30/17 05/20/24 History
vjouhyba-xec-qyxuj acid 0.4 1 ea PO DAILY 06/17/18 05/20/24 History
mg-lycopene 300 mcg-lutein 250 mcg
tablet (Centrum Silver)
acetaminophen 325 mg tablet 650 mg (2 x 325 mg) PO Q4HPRN PRN 06/29/18 05/20/24 Rx
mild to moderate pain #0 tabs
pantoprazole 40 mg tablet,delayed 40 mg PO DAILY ##0 06/29/18 05/20/24 Rx
release
polyethylene glycol 3350 17 gram 17 grams PO DAILYPRN PRN 06/29/18 05/20/24 Rx
oral powder packet constipation #0 packets
prochlorperazine maleate 10 mg 10 mg PO Q6HPRN PRN 06/29/18 05/20/24 Rx
tablet nausea/vomiting #10 tabs
tramadol 50 mg tablet 25 - 50 mg (0.5 - 1 x 50 mg) PO 06/29/18 05/20/24 Rx
Q6HPRN PRN severe pain #14 tabs
calcium polycarbophil 625 mg 1 mg PO BID 05/20/24 05/20/24 History
tablet (FiberCon)
cholestyramine 4 gram oral powder 1 g PO DAILY 05/20/24 05/20/24 History
dicyclomine 10 mg capsule 10 mg PO BID 05/20/24 05/20/24 History
loperamide 2 mg capsule 2 mg PO BID 05/20/24 05/20/24 History
(Anti-Diarrheal (loperamide))
metoprolol tartrate 50 mg tablet 50 mg PO BID 05/22/24 05/22/24 History
(Lopressor)
Review of Systems
-
History Source: Patient
All other systems: Negative unless noted
Physical Exam
Vital Signs
Temp Pulse Resp BP Pulse Ox
97.8 F 61 16 138/69 98
05/23/24 07:41 05/23/24 09:18 05/23/24 07:41 05/23/24 09:18 05/23/24 07:41
GEN: No distress, awake, Ox3, lying in bed
HEENT: supple, anicteric, mmm
LUNGS: CTA, no wheezes/rales
CV: Reg, S1/S2, 1/6 apical murmur
ABD: Mildly distended, firm, nontender, normal bowel sounds
EXT: No edema, clubbing or cyanosis
NEURO: Gross non-focal
SKIN: No rash, warm, dry, pink
Lab Results
05/23/24 05:41
05/23/24 05:41
Impression / Plan
-
PCP: Dr. Samson Davenport
Lasting Room Supervisor: Dr. Martinez
Impression:
Presented 05/19/2024 with left-sided abdominal pain associated with nausea vomiting and poor oral intake for several days prior to admission
Multiple heterogeneous soft tissue masses in abdomen and pelvis with left obstructive uropathy
CKD, stage III likely secondary to left obstructive uropathy
Hypokalemia
Hypothyroidism, TSH 61.5
Paroxysmal SVT
Paroxysmal atrial flutter
Hypertension
Thyroid cancer status post total thyroidectomy and radioablation
Elevated right susy-diaphragm
History of UGIB
Allergic rhinitis
GERD
History of leiomyoma status post BETINA/BSO
Hypothyroid
IBS
Asthma
Anxiety/depression
ECHO 08/31/2017: EF 65-70%, mild to moderate mitral regurgitation.
Echo 05/23/2024: ordered
Plan:
-Presented 05/19/2024 with left-sided abdominal pain associated with nausea vomiting and poor oral intake for several days prior to admission
-New multiple heterogeneous soft tissue masses in abdomen and pelvis with left obstructive uropathy on CT imaging. Concern for malignancy - pathology pending. Surgical gynecology (Dr. Kaye) on board.
-Left obstructive uropathy with CKD stage III which has been stable throughout admission. Urology has been consulted with tentative plan for retrograde urethral stents on 05/24/2024
-Hypokalemia, ongoing repletion by primary service
-History of thyroid cancer status post thyroidectomy and radioablation. TSH elevated at 61.5. Synthroid increased this admission by primary service
-Patient has history of SVT and paroxysmal atrial flutter. Denies any recent palpitations or arrhythmias.
-Check EKG, will need telemetry monitoring if patient moves forward with surgery
-Check echocardiogram. Patient's last echo in 2017 showed preserved ejection fraction with mild to moderate MR.
-History of hypertension maintained on Lopressor 50 mg twice a day and triamterene HCTZ as outpatient. Blood pressure reasonably controlled. Given hypokalemia would consider holding hydrochlorothiazide component although patient has done well on
this for many years
-Patient is active around the house with cooking and light chores. She has chronic stable dyspnea which has improved with reduction of beta-yon therapy and underlying bradycardia. Possibly some chronotropic incompetence. Await echo results.
Patient denies chest pain or shortness of breath at rest.
HPI 05/23/2024:
Patient is a 78-year-old female with a past medical history significant for paroxysmal SVT, paroxysmal atrial flutter, IBS, paralyzed right hemidiaphragm, hypertension, hypothyroidism secondary to thyroid cancer with thyroidectomy, irritable bowel
syndrome, asthma, anxiety and depression, leiomyoma of body of uterus status post total abdominal hysterectomy in 2016 and robotic assisted laparoscopic paraesophageal hernia repair with mesh and partial fundoplication June 2018 who presented to
emergency department 05/19/2024 with left-sided abdominal pain associated with nausea, vomiting and poor oral intake for several days prior to admission. Imaging of her abdomen demonstrated multiple heterogeneous soft tissue masses in abdomen and
pelvis with left obstructive uropathy. She underwent IR guided biopsy 05/22/24 with pathology pending. Ongoing discussion regarding surgical intervention of masses and/or urethral stenting by urology. Cardiology being asked to see patient for
preoperative risk assessment.
Patient last seen in cardiology office in December 2023 complaining of dyspnea on exertion. She was noted to be bradycardic on high-dose beta-yon therapy. Lopressor was reduced to 50 mg twice a day and patient noted improvement of dyspnea.
She reports no significant increase in palpitations/SVT or PAF on low-dose beta-oyn. She reports she is not overly active but is able to do cooking and light chores around the house including vacuuming and mopping the floors. She does get
winded with moderate or prolonged activity. She denies chest pain, dizziness, lightheadedness, orthopnea, PND or edema.
Data Reviewed
-
CT Scan: Report Reviewed by me, Discussed with Physician, Discussed with Patient and Discussed with Family
Labs: Labs Reviewed by me, Discussed with Physician, Discussed with Patient and Discussed with Family
Old Records: Reviewed
[2024-05-23] MEDS: TYLENOL 1000 MG PO ×2 (13:45→23:08)
[2024-05-23 15:18] VITALS: BP 126/67
--- NOTE | 2024-05-23 15:18 | W.PN.UPDATE ---
Update Note
Progress Note Update
Will bring to OR 05/24 to attempt retrograde ureteral stenting.
d/w Dr Lugo
[2024-05-23] MEDS: SINGULAIR 10 MG PO (17:36)
[2024-05-23 23:00] VITALS: BP 136/70
[2024-05-23] MEDS: LEXAPRO 10 MG PO (23:07)
[2024-05-23] MEDS: MELATONIN 5 MG PO (23:07)
[2024-05-24] VITALS (9 sets, daily range): BP systolic 117–128; BP diastolic 60–69; BMI 33.1
[2024-05-24] MEDS: SYNTHROID 200 MCG PO (06:03)
[2024-05-24 06:19] LABS: % Basophils 0.1 % (0-2); % Eosinophils 1.3 % (0-6); % Immature Granulocytes 0.7 % (0-0.5); % Lymphocytes 18.2 % (20.5-51.1); % Monocytes 9.1 % (1.7-9.3); % Neutrophils 70.6 % (42.2-75.2); Absolute Eosinophils 0.1 10^3/uL (0-0.7); Absolute Immature Granulocytes 0.1 10^3/uL (0-0.05); Absolute Lymphocytes 1.5 10^3/uL (1.2-3.4); Absolute Monocytes 0.7 10^3/uL (0.1-0.6); Absolute Neutrophils 5.8 10^3/uL (1.4-6.5); Hematocrit 33.9 % (37.0-47.0); Hemoglobin 11.1 g/dL (12.0-16.0); Mean Corp Hgb Conc. 32.7 g/dL (33.0-37.0); Mean Corpuscular Hgb 30.9 pg (27.0-31.0); Mean Corpuscular Volume 94.4 fL (81.0-99.0); Mean Platelet Volume 11.4 fL (7.4-10.4); Nucleated Red Blood Cells % 0 %; Platelet Count 145 10^3/uL (130-400); Red Blood Cell Count 3.59 10^6/uL (4.20-5.40); Red Cell Dist. Width 14.2 % (11.5-14.5); White Blood Cell Count 8.2 10^3/uL (4.8-10.8)
[2024-05-24 06:39] LABS: Blood Urea Nitrogen 26 mg/dl (7-17); Calcium 8.8 mg/dl (8.4-10.2); Carbon Dioxide 29 mmol/L (22-30); Chloride 97 mmol/L (98-107); Estimated Creatinine Clearance 36 ml/min; Glucose 117 mg/dl (70-99); Potassium 3.8 mmol/L (3.5-5.1); Sodium 133 mmol/L (135-145); eGFR 38.27
[2024-05-24] MEDS: CLARITIN CHILDREN'S 5 MG PO (09:20)
[2024-05-24] MEDS: HEPARIN 5000 UNITS SC ×2 (09:20→16:57)
[2024-05-24] MEDS: PROTONIX 40 MG PO (09:20)
[2024-05-24] MEDS: LOPRESSOR 50 MG PO (09:20)
[2024-05-24] MEDS: TYLENOL 1000 MG PO (09:23)
[2024-05-24] MEDS: MIRALAX PO (10:05)
--- NOTE | 2024-05-24 10:33 | W.PN.CARDCBS ---
Addendum entered and electronically signed by Jayson Hameed DO 05/24/24 12:03:
I saw and examined the patient.
The Vice President Quality's note was reviewed and I agree with the note.
Comment:
Plan:
-Patient admitted with new soft tissue masses in abdomen and pelvis with left obstructive uropathy on CT imaging. 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
-Urology planning on OR for ureteral stent 05/24/24
She remains low cardiac risk for ureteral stenting and does not require additional testing as she is compensated.
Her echo is stable with preserved LV function and no high-grade valvular disease.
She remains sinus rhythm with history of SVT.
Please recall if needed.
Original Note:
Today's Communication / Plan
-
Cont Lopressor
Cont tele post-op
Impression / Plan
-
PCP: Dr. Samson Davenport
Director Operating: Dr. Martinez
Impression:
Presented 05/19/2024 with left-sided abdominal pain associated with nausea vomiting and poor oral intake for several days prior to admission
Multiple heterogeneous soft tissue masses in abdomen and pelvis with left obstructive uropathy
CKD, stage III likely secondary to left obstructive uropathy
Hypokalemia
Hypothyroidism, TSH 61.5
Paroxysmal SVT
Paroxysmal atrial flutter
Hypertension
Thyroid cancer status post total thyroidectomy and radioablation
Elevated right susy-diaphragm
History of UGIB
Allergic rhinitis
GERD
History of leiomyoma status post BETINA/BSO
Hypothyroid
IBS
Asthma
Anxiety/depression
ECHO 08/31/2017: EF 65-70%, mild to moderate mitral regurgitation.
Echo 05/23/2024: EF 69%, mild to mod MR, aortic sclerosis without stenosis, mod TR with PAP 35 mmHg
Plan:
-Patient admitted with new soft tissue masses in abdomen and pelvis with left obstructive uropathy on CT imaging. 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
-Urology planning on OR for ureteral stent 05/24/24
-From a cardiac standpoint, patient with h/o SVT, but has been SR on tele and ECG reviewed by me 05/24/24
-Outpatient dose of Lopressor 50 mg BID has been continued
-EF stable on echo with stable mild to mod MR
-Outpatient dose of triamterene/HCTZ 37.5/25 mg daily is on hold due to hypokalemia
-Potassium improved to 3.8 on 05/24/24, labs reviewed by me.
-She can proceed as planned with ureteral stent placement at low cardiac risk.
HPI 05/23/2024:
Patient is a 78-year-old female with a past medical history significant for paroxysmal SVT, paroxysmal atrial flutter, IBS, paralyzed right hemidiaphragm, hypertension, hypothyroidism secondary to thyroid cancer with thyroidectomy, irritable bowel
syndrome, asthma, anxiety and depression, leiomyoma of body of uterus status post total abdominal hysterectomy in 2015 and robotic assisted laparoscopic paraesophageal hernia repair with mesh and partial fundoplication June 2018 who presented to
emergency department 05/19/2024 with left-sided abdominal pain associated with nausea, vomiting and poor oral intake for several days prior to admission. Imaging of her abdomen demonstrated multiple heterogeneous soft tissue masses in abdomen and
pelvis with left obstructive uropathy. She underwent IR guided biopsy 05/22/24 with pathology pending. Ongoing discussion regarding surgical intervention of masses and/or urethral stenting by urology. Cardiology being asked to see patient for
preoperative risk assessment.
Patient last seen in cardiology office in December 2023 complaining of dyspnea on exertion. She was noted to be bradycardic on high-dose beta-yon therapy. Lopressor was reduced to 50 mg twice a day and patient noted improvement of dyspnea.
She reports no significant increase in palpitations/SVT or PAF on low-dose beta-yon. She reports she is not overly active but is able to do cooking and light chores around the house including vacuuming and mopping the floors. She does get
winded with moderate or prolonged activity. She denies chest pain, dizziness, lightheadedness, orthopnea, PND or edema.
Progress Note - Director Operating
Subjective
Date of Service: May 24, 2024
She feels well, no palpitations
Objective
Labs:
05/24/24 05:22
05/24/24 05:22
Labs
Hgb 11.1 g/dL (12.0-16.0) L 05/24/24 05:22
Hct 33.9 % (37.0-47.0) L 05/24/24 05:22
Plt Count 145 10^3/uL (130-400) 05/24/24 05:22
PT 14.9 Sec (11.4-14.6) H 05/22/24 08:53
INR 1.14 05/22/24 08:53
Sodium 133 mmol/L (135-145) L 05/24/24 05:22
Potassium 3.8 mmol/L (3.5-5.1) 05/24/24 05:22
BUN 26 mg/dl (7-17) H 05/24/24 05:22
Creatinine 1.4 mg/dL (0.6-1.0) H 05/24/24 05:22
Glucose 117 mg/dl (70-99) H 05/24/24 05:22
Vital Signs and I&O:
Vital Signs
Temp Pulse Resp BP Pulse Ox
97.9 F 68 20 126/64 95
05/24/24 07:06 05/24/24 09:20 05/24/24 07:06 05/24/24 09:20 05/24/24 07:06
Vital Signs
Temp Pulse Resp BP Pulse Ox
97.9 F 68 20 126/64 95
05/24/24 07:06 05/24/24 09:20 05/24/24 07:06 05/24/24 09:20 04/16/25 07:06
Intake & Output
05/22/24 05/23/24 05/24/24 05/25/24
06:59 06:59 06:59 06:59
Intake Total 1899 2430 / 2430 720 / 720 240 / 240
Balance 1899 2430 / 2430 720 / 720 240 / 240
Physical Exam
Physical Exam
GEN: AAO x3
HEENT: MMM
LUNGS: RA
CV: SR on tele
EXT: No edema B/L
NEURO: Gross non-focal
SKIN: No rash
--- NOTE | 2024-05-24 12:02 | W.PN.HOSP.TC ---
Addendum entered and electronically signed by Enmanuel Marie DO 05/24/24 12:17:
Biopsy results:
Biopsy returned with smooth muscle neoplasm morphology and IHC (leiomyoma)
No cytologic atypia or tumor necrosis identified
Ki-67 profile operative index less than 1%
Results thus far indicative of benign smooth muscle neoplasm
Original Note:
Today's Communication/Plan
-
Ureteral stent placement today
Follow-up pathology
Discontinue Toradol; continue with Tylenol and tramadol
Possible discharge later today versus tomorrow
Assessment / Plan
Assessment / Plan
#Pelvic mass with urinary obstruction
#H/O uterine leiomyoma s/p BETINA/BSO
-Unclear etiology though concern for recurrent uterine leiomyoma versus other malignancy such as sarcoma; CA125 levels were elevated though not drastically
-Initial CT A/P without contrast showed large heterogenous cystic lesion of the lower mid abdomen (18.9 x 14.8 x 16.9 cm) with evidence of retroperitoneal lesions of the left side
-CT A/P with contrast showed multiple heterogenous soft tissue masses in the abdomen and pelvis, mentions possible sarcomatous mass which often is associated with left obstructive uropathy
-CA 19�9 levels unremarkable as were CEA levels
-Renal function has remained stable throughout hospitalization
-Patient will have pelvic MRI as OP in open setting
-Urology following for consideration of PCN versus stent
Plan
-Follow-up pathology from IR guided biopsy 05/22
-Trend BMP and UOP for signs of worsening obstruction
-Plan for outpatient open MRI of the pelvis
-Continue with as needed analgesia, avoid NSAID as possible
-Plan for ureteral stent today
#Iatrogenic hypothyroidism
#H/O thyroid cancer s/p radioablation
-Labs here with TSH 61.5, thyroglobulin 0.1, normal T4
-Home regimen includes levothyroxine 150 mcg daily
-Will increase levothyroxine to 200 mcg daily for now
-Ensure she is taking it 30 minutes prior to meals in the morning
-Repeat TSH in 4 weeks
#Hypovolemic hyponatremia
-Patient states she has had poor appetite for over a week, associated with nausea
-Has been stable over multiple lab draws between 131 and 135
-S/p IVF; nausea has improved with antiemetic
-Consider urine studies if worsening
-Encourage oral solute intake and trend BMP
#CKD stage III
-Baseline creatinine likely near 1.3
-Creatinine here has been stable at 1.3-1.4 over 4 different lab draws
-Will continue to trend BMP in the context of obstructive uropathy
-Avoid nephrotoxic agents
#Primary hypertension
-No known history of hypertensive systemic disease
-Home regimen includes metoprolol tartrate, triamterene, HCTZ
-Blood pressure here adequate
#GERD
#H/O GI bleeding
-Home regimen includes twice daily PPI
-Appears to have a history of UGIB with previous EGD
-Was told to avoid NSAIDs; has been receiving IV Toradol here
-Will try to transition away from Toradol to Tylenol with tramadol
DVT prophylaxis: Subcu heparin
Diet: N.p.o. pending the ureteral stent placement
CODE STATUS: Full code
Anticipated Discharge: Within 24 hours
Subjective/Interval History
-
Date of Service: May 24, 2024
Seen and examined at the bedside. No acute events reported overnight. AFVSS this morning
Patient states pain improved with extra strength Tylenol, which she takes at home. Nausea also improved. Renal function stable
Currently n.p.o. in preparation of ureteral stent. Denies any new complaints this morning
Objective Data
-
Labs:
Laboratory Results
05/24/24
05:22
WBC 8.2
Hgb 11.1 L
Hct 33.9 L
Plt Count 145
Sodium 133 L
Potassium 3.8
Chloride 97 L
Carbon Dioxide 29
BUN 26 H
Creatinine 1.4 H
Glucose 117 H
Calcium 8.8
Vital Signs:
Vital Signs
Temp Pulse Resp BP Pulse Ox
97.9 F 68 20 126/64 95
05/24/24 07:06 05/24/24 09:20 05/24/24 07:06 05/24/24 09:20 05/24/24 07:06
I&O
05/23/24 05/24/24 05/25/24
06:59 06:59 06:59
Intake Total 2430 / 2430 720 / 720 240 / 240
Balance 2430 / 2430 720 / 720 240 / 240
Review of Systems
-
History Source: Patient
All other systems: Reviewed and negative
Physical Exam
-
General: Well Developed, Well Nourished, No Apparent Distress and Comfortable
HEENT: Normocephalic, Atraumatic and Moist Mucous Membranes
Respiratory: Clear to Auscultation and Non Labored Respirations
Cardiac: Regular Rhythm and S1/S2; Negative Murmur, Rub or Gallop
GI: Soft, Nontender, Nondistended, Normal Bowel Sounds, Distended and Organomegaly (Mass lesion left lower abdomen into flank)
Musculoskeletal: No Clubbing, No Cyanosis and No Edema
Skin: Warm, Dry and Normal Turgor; Negative Rash
Neuro: AO x 3 and Nonfocal/Grossly Intact
Psych: Calm
Data Reviewed
-
Labs: Labs Reviewed by me, Discussed with Physician (Urologist) and Discussed with Patient
--- NOTE | 2024-05-24 14:30 | W.SUR.PREOP ---
Pre-Operative Surgical Note
-
I have examined this patient prior to the performance of the scheduled procedure.
surgical consent signed
--- NOTE | 2024-05-24 15:02 | W.IMMPOSTOP ---
Surgical Immed Post Op Note
-
Primary Surgeon: Abhi
Pre-op Diagnosis: Left Ureteral Obstruction due to massive LAD
Post-op Diagnosis: same
Procedure Performed: Cysto, left ureteral stenting, RGP
Anesthesia Type: LMA
Specimen / Cultures: none
Estimated Blood Loss: negligible
Complications: none
Operative Findings: left hydronephrosis due to proximal, extrinsic obstruction
Left 8 Fr, 26 cm JJ ureteral stent placed.
--- NOTE | 2024-05-24 15:10 | W.DCSUMMARY ---
Discharge Summary
Discharge Data
Date of Admission: 05/19/24
Date of Discharge: 05/24/24
Total time spent discharging patient (in min): 37
-
Pending Results: Yes
Additional Pending Results:
Final pathology report from pelvic mass biopsy
Hospital Course
Discharging Physician :� Enmanuel Marie DO
Disposition :���� Home
Principal Discharge diagnosis :�
Pelvic mass
Status post IR guided biopsy
Left ureteral impingement/obstructive uropathy
Undertreated hypothyroidism
Hypokalemia
Nausea
Chronic Discharge diagnosis :�
H/O leiomyoma s/p total abdominal hysterectomy
H/O thyroid cancer s/p ablation
H/O SVT
H/O GI bleeding
CKD stage III
GERD
Hypertension
Hospital Course :�
78-year-old female that presented to the hospital with left-sided flank pain over 4 days time, associated with nausea. Associated symptoms with reduced oral intake. Was hemodynamically stable with baseline renal function at time of arrival. CT of
the abdomen and pelvis without contrast showed large heterogenous cystic lesion extending from the pelvis into the lower and mid abdomen as well as numerous additional mildly hypodense lesions in the left perirenal fat retroaortic regions. CT
demonstrated obstruction of the left ureter with moderate left-sided hydronephrosis. Renal function stable at her baseline creatinine. Was assessed by medical and gynecologic oncology. Recommended left ureteral stent first PCN, MRI of the pelvis,
and biopsy. MRI unable to be done inpatient due to severe claustrophobia. Urology was consulted and ureteral stent was placed on 05/24/2024. Had IR guided biopsy of the pelvic mass on 05/22/2024. Pathology was consistent with benign smooth muscle
neoplasm, possibly recurrence of uterine leiomyoma for which she had abdominal hysterectomy in 2016. Patient was recommended to follow-up outpatient with medical and gynecologic oncology for review of final biopsy and immunohistochemistry. Was
evaluated by cardiology in hospital for preoperative assessment with anticipated abdominal tumor debulking procedure. No contraindications to procedure as per their preoperative assessment on 05/23/2024. Referrals provided for urology, medical
oncology, gynecologic oncology.
Consultants :
Gynecologic oncology: Govind Lugo MD
Medical oncology: Larisa Calloway MD
Urology: Andreas Moe MD
Important imaging findings :�
CT A/P without IV or oral contrast (05/20/2019)
IMPRESSION: There is a large heterogeneous, cystic lesion extending from the pelvis into the lower/mid abdomen measuring up to 18.9 x 14.8 x 16.9 cm. There is associated local mass effect. There are numerous additional mildly hypodense lesions with
a large left perirenal/retroaortic lesion measuring 13.4 x 9.4 x 13.2 cm. This obstructs the left ureter with associated moderate left-sided hydronephrosis. Findings are that of malignancy, possibly ovarian, with metastatic lymph nodes/soft tissue
deposits. There is a 3.3 cm focus of nodular thickening along the sigmoid colon which may be related to a large adjacent lymph node, although a sigmoid mass is possible. Further evaluation with colonoscopy may be considered. There are numerous
smaller perirectal, presacral and retroperitoneal soft tissue nodules which are likely metastatic lymph nodes.
CT A/P with IV and oral contrast (05/21/2024)
IMPRESSION: Small volume ascites. Numerous heterogeneous soft tissue masses of varying size scattered throughout the abdomen and pelvis, as detailed above, difficult to differentiate whether all masses are primary peritoneal or retroperitoneal in
origin, suspicious for malignancy. Sarcomatous masses would be one differential diagnostic possibility. Left-sided mass likely results in left-sided obstructive uropathy. Small masses in the left true pelvis appears to be contiguous with the sigmoid
colon.
Transthoracic echocardiogram (05/23/2024)
CONCLUSIONS: Mild concentric left ventricular hypertrophy. Normal left ventricular chamber size. Normal left ventricular systolic function. Left ventricular ejection fraction is 69% by Escalante's method. Normal diastolic function. Mitral valve opens
normally. Mild to moderate mitral regurgitation. Trileaflet aortic valve. Thickened aortic valve with normal leaflet excursion. Aortic sclerosis without stenosis. Trace aortic insufficiency. Tricuspid valve opens normally. Moderate tricuspid
regurgitation. Estimated pulmonary artery pressure of 35 mmHg, assuming a right atrial pressure of 3 mmHg. Since echo August 2017, there is no significant change.
Procedure findings :�
Pelvic mass biopsy results (05/22/2024)
Biopsy returned with smooth muscle neoplasm morphology and IHC (leiomyoma)
No cytologic atypia or tumor necrosis identified
Ki-67 profile operative index less than 1%
Results thus far indicative of benign smooth muscle neoplasm
Follow-up :
Outpatient open MRI of pelvis with and without contrast (could not have inpatient MRI due to severe claustrophobia)
Follow-up in office with gynecologic oncology and medical oncology within 1 to 2 weeks of discharge
Follow-up with urologist as directed, office information provided
Follow-up with family doctor in office within 1 week of discharge from hospital
Repeat TSH with reflex T4 in 4 weeks
Discharge Plan
-
Patient Disposition: Home (Routine Discharge)
Discharge Diagnosis/Procedures: Pelvic mass
Left ureteral impingement/obstructive uropathy
Elevated TSH
H/O uterine leiomyoma s/p BETINA
H/O thyroid cancer s/p ablation
H/O gastrointestinal bleeding
CKD stage III
GERD
Condition: Fair
Diet: No restrictions
Activity: As tolerated
Driving Restrictions: Not until seen by your Dr
Bathing Restrictions: None
Blood Work: Repeat BMP and CBC at next family doctor appointment
Repeat TSH with reflex T4 in 4 weeks with your family doctor
Others Tests: Prescription provided for MRI of the pelvis with and without contrast, to be performed at open MRI center with results sent to oncologist and family doctor
Further imaging studies such as PET/CT may be recommended by your oncologist
Activity Restrictions/Additional Instructions:
Schedule follow-up appointment with your family doctor. Should be seen in office within 1 to 2 weeks of discharge from the hospital
Referrals provided below for urology, medical oncology, gynecologic oncology. Please contact offices to schedule an appointment
Referrals:
Larisa Calloway MD [Active] - in one week
Andreas Moe MD [Active] - As needed
Govind Lugo MD [Active] - in one week
Samson Davenport MD [Family Provider] -
Additional Discharge Medication Instructions: Increased levothyroxine to 200 mcg daily. Make sure you are taking this medication at least 30 minutes prior to any food or drink that is not water
Use melatonin 5 mg nightly for sleep aid
Use Zofran 4 mg every 8 hours as needed for nausea and vomiting
Continue Tylenol 1000 mg every 6 hours as needed for pain with tramadol 50 mg as needed for breakthrough pain
Stop taking HCTZ and triamterene until you see your family doctor
Prescriptions:
New
levothyroxine 200 mcg Tablet
200 mcg PO DAILY @ 0600 30 Days Qty: 30 0RF
melatonin 5 mg Tablet
5 mg PO HS 30 Days Qty: 30 0RF
ondansetron 4 mg tablet,disintegrating
4 mg PO Q8H PRN (Reason: nausea and vomiting) 14 Days Qty: 30 0RF
Continued
montelukast 10 MG tablet
10 mg PO QPM
fexofenadine [Pushpa] 60 MG tablet
60 mg PO BID
escitalopram oxalate 10 MG tablet
10 mg PO HS
Align (B.infantis) 4 MG capsule
4 mg PO DAILY
Centrum Silver 1 EACH tablet
1 ea PO DAILY
acetaminophen 325 MG tablet
650 mg PO Q4HPRN PRN (Reason: mild to moderate pain) Qty: 0 0RF
polyethylene glycol 3350 17 GRAMS powder in packet
17 grams PO DAILYPRN PRN (Reason: constipation) Qty: 0 0RF
tramadol 50 MG tablet
25 - 50 mg PO Q6HPRN PRN (Reason: severe pain) Qty: 14 0RF
prochlorperazine maleate 10 MG tablet
10 mg PO Q6HPRN PRN (Reason: nausea/vomiting) Qty: 10 0RF
pantoprazole 40 MG tablet,delayed release (DR/EC)
40 mg PO DAILY Qty: 0 0RF
cholestyramine 4 gram Powder
1 g PO DAILY
dicyclomine 10 mg Capsule
10 mg PO BID
loperamide [Anti-Diarrheal (loperamide)] 2 mg Capsule
2 mg PO BID
calcium polycarbophil [FiberCon] 625 mg Tablet
1 mg PO BID
metoprolol tartrate [Lopressor] 50 mg Tablet
50 mg PO BID
Held
triamterene-hydrochlorothiazid 1 EACH tablet
1 ea PO DAILY
Hold Instructions: Until you see your family doctor
Patient Comments:
37.5-25mg
Discontinued
levothyroxine 150 MCG tablet
150 mcg PO DAILY
Discharge Orders:
Discharge Patient (As Directed); Ordered 05/24/24
Ordered By: Enmanuel Marie
Discharge Date and Time
Print Language: [place]
--- NOTE | 2024-05-24 16:00 | PTCARENOTE ---
Pt received post stent placement. VSS, AAOx3 and pleasant. Pt denies pain or nausea. Discharge order written, waiting until 1700. Call martinez within reach, will continue to monitor.
--- NOTE | 2024-05-24 16:57 | CM ---
Pt cleared for discharge to home with no needs.
[2024-05-24] MEDS: SINGULAIR 10 MG PO (17:01)
== END 2024-05-24 19:08 | disposition home or self-care (01) | DRG 660 ==
LOC: 3 WEST ACU 21:44
PROVIDERS: Hospitalist; Radiology Diagnostic Radiology; Student in an Organized Health Care Education/Training Program; ADMITTING PHYSICIAN Internal Medicine; ATTENDING PHYSICIAN Internal Medicine; CONSULT PHYSICIAN Internal Medicine Cardiovascular Disease; CONSULT PHYSICIAN Internal Medicine Gastroenterology; CONSULT PHYSICIAN Internal Medicine Hematology & Oncology; CONSULT PHYSICIAN Obstetrics & Gynecology Gynecologic Oncology; CONSULT PHYSICIAN Specialist; EMERGENCY PHYSICIAN Emergency Medicine; FAMILY PHYSICIAN Internal Medicine
PROC: 0JBC3ZX Excision of Pelvic Region Subcutaneous Tissue and Fascia, Percutaneous Approach, Diagnostic (ICD-10-PCS; 2024-05-22)
PROC: BT1F1ZZ Fluoroscopy of Left Kidney, Ureter and Bladder using Low Osmolar Contrast (ICD-10-PCS; 2024-05-24)
PROC: 0T778DZ Dilation of Left Ureter with Intraluminal Device, Via Natural or Artificial Opening Endoscopic (ICD-10-PCS; 2024-05-24)
DX: N13.1 Hydronephrosis with ureteral stricture, not elsewhere classified (principal); I47.19 Other supraventricular tachycardia; R18.8 Other ascites; I48.92 Unspecified atrial flutter; D21.6 Benign neoplasm of connective and other soft tissue of trunk, unspecified; E89.0 Postprocedural hypothyroidism; E87.6 Hypokalemia; Z90.710 Acquired absence of both cervix and uterus; Z90.722 Acquired absence of ovaries, bilateral; Z85.850 Personal history of malignant neoplasm of thyroid; I12.9 Hypertensive chronic kidney disease with stage 1 through stage 4 chronic kidney disease, or unspecified chronic kidney disease; E11.22 Type 2 diabetes mellitus with diabetic chronic kidney disease; N18.30 Chronic kidney disease, stage 3 unspecified; K21.9 Gastro-esophageal reflux disease without esophagitis; F40.240 Claustrophobia; I08.1 Rheumatic disorders of both mitral and tricuspid valves; I70.0 Atherosclerosis of aorta; K58.9 Irritable bowel syndrome, unspecified; Z88.5 Allergy status to narcotic agent; Z91.041 Radiographic dye allergy status; Z79.890 Hormone replacement therapy; D64.9 Anemia, unspecified; E66.9 Obesity, unspecified; Z68.33 Body mass index [BMI] 33.0-33.9, adult; F32.A Depression, unspecified; G89.3 Neoplasm related pain (acute) (chronic); I45.4 Nonspecific intraventricular block; J45.909 Unspecified asthma, uncomplicated; Z79.899 Other long term (current) drug therapy; Z90.49 Acquired absence of other specified parts of digestive tract; Z96.653 Presence of artificial knee joint, bilateral
CPT/HCPCS: 88305; 49180; 71250; 74176; 74177; 74420; 76000; 77012; 80048; 80053; 81003; 81015; 82378; 83690; 84432; 84436; 84443; 85025; 85027; 85610; 86301; 86304; 86800; 87086; 88333; 88341; 88342; 93005; 93306; 96374; 99152; 99284; C2617; Q9967

== ENCOUNTER → 2024-06-22 10:46 | Outpatient (REF) | payer MEDICARE, BC, SELFPAY | LOC: HWRCS 10:46 | PROVIDERS: ATTENDING PHYSICIAN Internal Medicine Cardiovascular Disease; FAMILY PHYSICIAN Internal Medicine; REFERRING PHYSICIAN Internal Medicine Cardiovascular Disease | DX: Z01.818 Encounter for other preprocedural examination (principal); R06.09 Other forms of dyspnea | CPT/HCPCS: 78452; 93017; A9500; J2785 ==

== ENCOUNTER 2024-06-30 07:09 | Outpatient (REF) | payer MEDICARE, BC, SELFPAY ==
[2024-06-30] VITALS (12 sets, daily range): BP systolic 61–112; BP diastolic 45–71
--- NOTE | 2024-06-30 09:52 | PTCARENOTE ---
Patient to IR for biopsy. Original order for pelvic mass, determination sheet states left flank. Dr Ronquillo contacted and order recieved for Left flank mass biopsy. Consent obtained by Dr Rich for abdominal/pelvic mass biopsy. Sts that 'Covers
the flank'. Palletiser Operator aware.
== END 2024-06-30 11:40 | disposition home or self-care (01) ==
LOC: RADI 07:09
PROVIDERS: ATTENDING PHYSICIAN Surgery; FAMILY PHYSICIAN Internal Medicine; OTHER PHYSICIAN Internal Medicine Cardiovascular Disease
DX: D49.0 Neoplasm of unspecified behavior of digestive system (principal); Z86.018 Personal history of other benign neoplasm
CPT/HCPCS: 88305; 49180; 77012; 88333; 88341; 88342; 99152

== ENCOUNTER 2024-08-07 03:05 | Inpatient (IN) | payer MEDICARE, BC, SELFPAY ==
[2024-08-06 21:40] VITALS: BP 100/58
[2024-08-07] VITALS (11 sets, daily range): BP systolic 86–121; BP diastolic 48–63; PULSE 52–96; BMI 29.0
--- NOTE | 2024-08-07 00:44 | EDRN ---
Pt says she has been having to use a cane recently and is having trouble with her balance, difficulty getting up from a chair. Pt feels both legs are weak, L might be weaker than right. No arm weakness. Pt has 7 tumors in her abdomen and says they
are not cancerous. Pt has IBS and says she has nausea often. Son notes pt has increased confusion x 4 ays. notes pt's speech seems slurred, pt does not think her speech is slurred. No headache, vomiting, cp, sob, abd pain,
fever/chills/cough, urinary symptoms, dizziness, visual disturbance.
[2024-08-07 01:08] LABS: Hematocrit 34.7 % (37.0-47.0); Hemoglobin 11.8 g/dL (12.0-16.0); Mean Corp Hgb Conc. 34.0 g/dL (33.0-37.0); Mean Corpuscular Volume 90.8 fL (81.0-99.0); Nucleated Red Blood Cells % 0 %; Platelet Count 177 10^3/uL (130-400); Red Cell Dist. Width 13.9 % (11.5-14.5)
[2024-08-07] MEDS: LOW STRENGTH ASPIRIN 324 MG PO (01:12)
--- NOTE | 2024-08-07 01:18 | ED.CVA ---
History of Present Illness
General
Chief Complaint: CVA/TIA Symptoms
Source: patient
Exam Limitations: none
Time Seen by Provider: 08/07/24 00:40
Nursing documentation reviewed up to this point in time: agreed with
Onset of Stroke Symptoms
Onset of symptoms known: No
Time pt last seen normal is known: No
History of Present Illness
History of Present Illness:
78-year-old female with history as noted presents to the ER for evaluation of weakness and slurred speech. Patient reports that approximately a week ago she started to notice she was having increased difficulty ambulating�she says she typically
ambulance without a cane but about a week ago she noticed that her legs were weak particular on the left and she had very poor balance. Her family notes that she was having some increased slurring of her speech. Patient resistant to come to the
hospital initially but family ultimately convinced to come to the emergency room. 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 Aside from symptoms
described above patient denies headache, vision change, arm weakness or any other acute complaints.
Past History
Past History
ED Past Medical History: Arrthythmia, Cancer (thyroid), Hypothyroidism, Other (Bursitis,), Other (Had fast-growing cataracts, Cataract surgery) and Other (Bad seasonal allergies, chronic head and nasal congestion with headaches, is on Pushpa all
year long. Takes Monolukast as needed.); Negative HTN, Hypercholesterolemia or NIDDM
ED Past Surgical History: Appendectomy, Cholecystectomy, Gynecological (Hysterectomy), Orthopedic (Bilateral knee replacements) and Other (Abd surgery for large fibroid)
Social History
Tobacco: Non-smoker
Alcohol: None
Personal:
Living: with family
Employment: Employed
Family History
Family History: Adopted
Review of Systems
Review of Systems
All Other Systems: ROS reviewed and negative except as documented in HPI and ROS
Constitutional: Reports fatigue; Denies fever
Respiratory: Denies trouble breathing
Cardiac: Denies chest pain or palpitations
ABD/GI: Denies abdominal pain
: Denies flank pain
Musculoskeletal: Denies neck pain or back pain
Neurological: Reports weakness and other (Slurred speech); Denies dizzy, headache or numbness
Phy Exam
Physical Exam
Physical Exam:
General: Awake, alert, oriented x3; no acute distress
Head: Normocephalic, atraumatic
Eyes: Conjunctiva normal, EOMI, pupils equal round and reactive to light bilaterally
Throat: Airway intact, handling secretions
Neck: Trachea midline
Lungs: Clear to auscultation bilaterally, no wheezing, rales, rhonchi
Heart: Regular rate and rhythm, no murmurs, gallops, or rubs appreciated
Abd: Soft, non distended, nontender
Neuro: Patient has slight facial droop on the left; she has mild dysarthria no aphasia; motor and sensory is intact and symmetric in the upper extremities; she has very slight proximal left leg weakness when compared to the right but no significant
distal weakness in the lower extremities and sensory exam is intact in the extremities
Skin: no rash
Extremities: No significant edema in extremities, equal pulses in all extremities
Scores
NIH Stroke Score
Level of Consciousness: 0 - Alert
LOC Questions: 0-Answers both correctly
LOC Commands: 0-Performs both correctly
Best Horizontal Gaze: 0-Normal
Visual Gordon: 0=Normal, no visual loss
Facial Palsy: 1=Minor paralysis
Motor - Right Arm: 0=No drift 10 seconds
Motor - Left Arm: 0=No drift 10 seconds
Motor - Right Le-No drift 5 seconds
Motor - Left Le-Drift < 5 seconds
Limb Ataxia: 0-Absent
Sensation: 0-Normal
Best Language: 0-No aphasia
Dysarthria: 1-Mild slurring
Extinction and Inattention: 0-No abnormality
NIH Total Score:: 3
Thrombolytic Contraindication
Inclusion and Exclusion criteria reviewed: Yes
Reasons for NON-Tx with Thrombolytics ABSOLUTE Exclusions: Greater than 4.5 hrs from onset of sxs
Heart Failure Risk
Heart Failure Risk Score: Not Applicable
Heart Score for Chest Pain Patients
STEMI patient?: Not applicable
Withdrawal Assessment of Alcohol
Withdrawal Assessment Completed?: Not applicable
Course
Orders/Labs/Results
Orders:
Orders
08/06/24 21:42
Electrocardiogram (*1) Urgent
Reason for Study: Fatigue / Weakness
CT Head W/o Iv Contrast Urgent
Comment:
Reason For Exam: slurred word/balance issues
Complete Blood Count/With Diff Urgent
PTT Urgent
Troponin I Urgent
08/06/24 21:43
EKG- Treatment ONCE
08/07/24 00:53
Aspirin Chewable [Low Strength Aspirin] 324 mg PO NOW STA
08/07/24 00:59
Basic Metabolic Panel Urgent
Abnormal Lab Results
08/07/24
00:59
RBC 3.82 L 10^6/uL
(4.20-5.40)
Hgb 11.8 L g/dL
(12.0-16.0)
Hct 34.7 L %
(37.0-47.0)
Abs Immat Gran (auto) 0.1 H 10^3/uL
(0-0.05)
Absolute Neuts (auto) 7.5 H 10^3/uL
(1.4-6.5)
Absolute Monos (auto) 0.8 H 10^3/uL
(0.1-0.6)
Neutrophils % 75.8 H %
(42.2-75.2)
Lymphocytes % 14.7 L %
(20.5-51.1)
08/07/24 00:59
Vital Signs
Initial and Last Documented VS:
Initial Vital Signs
Temp Pulse Resp BP Pulse Ox
36.7 C 58 20 100/58 97
08/06/24 21:40 08/06/24 21:40 08/06/24 21:40 08/06/24 21:40 08/06/24 21:40
Last Documented Vital Signs
Temp Pulse Resp BP Pulse Ox
36.7 C 54 14 103/63 97
08/06/24 21:40 08/07/24 01:05 08/07/24 01:05 08/07/24 01:05 08/07/24 01:20
MDM/Problems Addressed
Differential Diagnosis Includes:
Stroke, deconditioning, electrolyte derangement
MDM/Problems Addressed:
78-year-old female presents with increasing weakness particular in the left leg as well as slurred speech. Ongoing for past week. Vitals and exam as above. Concern for subacute stroke. Outside TNK window. CT head negative for any acute
pathology. EKG shows sinus rhythm. Treat with aspirin. Admit for continued evaluation and treatment. Discussed with hospitalist.
*Pulse Oximetry
SaO2: 97
Oxygen Mode of Delivery: Room air
Patient hypoxic: no (97%)
*EKG
Interpreted by ED Provider?: Yes
Heart Rate: 54
Rate: bradycardiac
Rhythm: sinus
[place]: normal axis
Interval: normal interval
QRS Pattern: right bundle branch block
Ischemia: other (Possible lateral infarct age-indeterminate)
*Critical Care Note
Total Time (30-74mins, 75-104mins- exclusive of procedures): Not Applicable
Data Reviewed
Source: patient, records and family
Patient Management
Discussion with other providers: Hospitalist (Discussed with hospitalist)
Escalation/DeEscalation of care consider admission/obs:
Admission indicated
ED Attending Note
-
Portions of this chart may have been created with voice recognition software.� Occasional wrong word or��sound alike� substitutions may have occurred due to the inherent limitations of voice recognition software.
Discharge Plan
Departure
Patient Disposition: Admit
Date of Disposition: 08/07/24
Time of Disposition: 01:17
Admit to doctor: Serge
Presentation/result/management discussed w/ accepting MD/DO: Hospitalist
Discharge Problem:
CVA (cerebral vascular accident)
Prescriptions:
No Action
montelukast 10 MG tablet
10 mg PO QPM
fexofenadine [Pushpa] 60 MG tablet
60 mg PO BID
cholestyramine 4 gram Powder
1 g PO DAILY
dicyclomine 10 mg Capsule
10 mg PO BID
loperamide [Anti-Diarrheal (loperamide)] 2 mg Capsule
2 mg PO BID
metoprolol tartrate [Lopressor] 50 mg Tablet
50 mg PO BID
Align 31/08
1 cap PO DAILY
triamterene-hydrochlorothiazid 37.5-25 mg Capsule
1 cap PO DAILY
levothyroxine [Synthroid] 150 mcg Tablet
150 mcg PO DAILY
calcium polycarbophil [FiberCon] 625 mg Tablet
1,250 mg PO BID
escitalopram oxalate 20 mg Tablet
20 mg PO QPM
Centrum Silver Women 8 mg iron-400 mcg-50 mcg Tablet
1 tab PO QPM
pantoprazole 40 MG tablet,delayed release (DR/EC)
40 mg PO BID
Interventions
Interventions:
*Risk Screen - Suicide Last Done: 08/07/24 00:37
*General Assessment Last Done: 08/06/24 21:40
*Neglect/Abuse Screening Last Done: 08/07/24 00:37
*ED- Fall Risk Assessment Last Done: 08/07/24 01:07
ED- Pulmonary Assessment Last Done: 08/07/24 01:15
ED- Neurological Assessment Last Done: 08/07/24 01:15
ED- Cardiac Assessment Last Done: 08/07/24 01:15
ED Swallowing Screen Last Done: 08/07/24 01:15
Discharge Date and Time
Print Language: PALESTINIAN
--- NOTE | 2024-08-07 01:18 | EDRN ---
Labs and EKG were ordered in triage at 2142. When pt came back to ED room, pt said she did not have an EKG done and there were no EKG stickers on her. Pt said she was stuck twice for blood (both ACFs had pressure dressings) and that someone did
get her blood. This RN checked triage area, station tubes then mobilab - orders were not scanned as collected. This RN obtained triage blood work when pt in ED room and assumed care of pt.
[2024-08-07 01:37] LABS: APTT 30.8 Sec (23.4-35.0)
[2024-08-07 01:39] LABS: Blood Urea Nitrogen 21 mg/dl (7-17); Calcium 12.4 mg/dl (8.4-10.2); Carbon Dioxide 27 mmol/L (22-30); Chloride 95 mmol/L (98-107); Estimated Creatinine Clearance 32 ml/min; Glucose 114 mg/dl (70-99); Sodium 128 mmol/L (135-145); eGFR 35.23
[2024-08-07 01:40] LABS: Troponin I 0.059 ng/ml
[2024-08-07] MEDS: NSS 500 IV (01:48)
[2024-08-07 02:04] LABS: ALT (SGPT) < 10 U/L (0-35); AST (SGOT) 22 U/L (14-36); Albumin 3.9 g/dl (3.5-5.0); Alkaline Phosphatase 66 U/L (38-126); Potassium 2.8 mmol/L (3.5-5.1); Total Protein 6.4 g/dl (6.3-8.2)
[2024-08-07] MEDS: KCL 40 MEQ PO ×2 (02:38→06:34)
[2024-08-07] MEDS: FLUSH (NSS) 1 FLUSH IV (02:40)
--- NOTE | 2024-08-07 02:55 | HPS.HSE ---
Family Physician
-
Family Physician: Samson Davenport
Chief Complaint
-
Weakness, Slurred Speech
History of Present Illness
Patient is a 78y F with PMH significant for hypertension, IBS and recent diagnosis of spindle cell cancer / leiomyomatosis who presents to ED complaining of weakness and slurred speech. Patient is being evaluated at [facility] for multiple
intra-abdominal / retroperitoneal tumors (biopsy x 2 here consistent with spindle cell / leiomyoma). She is on no new medications / active therapy for this. Patient states that she has had poor appetite / decreased PO intake recently. Over the
past week she describes a functional decline with weakness and unsteady gait. She has taken to using a cane which has not previously needed. Family has also appreciated slurring speech and intermittent confusion.
Patient reports that symptoms have been progressive for about one week. She initially resisted family recommendations that she present to the hospital, but tonight she agreed.
No prior NM, CVA, etc.
Only recent med change was increase in levothyroxine from 150mcg to 200mcg daily based on labs done at [facility].
Medical History
Past Medical History
Past Medical History: Reports Other
Additional Past Medical History:
Spindle Cell Tumors / Leiomyomas
Thyroid Cancer s/p Resection and XRT
Hypothyroidism
SVT
GERD / IBS
Hypertension
Anxiety
Past Surgical History: Reports Other
Additional Past Surgical History:
BETINA / BSO
Retroperitoneal Biopsy (x 2)
Left Ureteral Stent
Appendectomy
Thyroidectomy
Cholecystectomy
Bilateral TKA
Paraesophageal hernia repair / Fundoplication
Social History
Tobacco: Non-smoker
Alcohol: None
Drug: None
Family History
Family History: Not pertinent
Allergies / Home Medications
Allergies reflects when Allergies were last updated in [facility].
Home Medications with original date entered in [facility]
Allergy/Medication List:
Allergies
Allergy/AdvReac Type Severity Reaction Status Date / Time
codeine (Codeine) Allergy vomiting Verified 08/06/24 21:40
erythromycin base Allergy vomiting Verified 08/06/24 21:40
(Erythromycin Base)
hydrocodone (Hydrocodone) Allergy swelling, Verified 08/06/24 21:40
vomiting
Iodinated Contrast Media (IV Allergy Swelling Verified 08/06/24 21:40
Dye, Iodine Containing
Contrast )
NSAIDS (Non-Steroidal Allergy INTERNAL Verified 08/06/24 21:40
Anti-Inflamma BLEEDING,
ANEMIA
oxycodone Allergy Vomiting Verified 08/06/24 21:40
Home Medications
montelukast 10 mg tablet 10 mg PO QPM 03/31/11
fexofenadine 60 mg tablet (Pushpa) 60 mg PO BID 08/30/17
cholestyramine 4 gram oral powder 1 g PO DAILY 05/20/24
dicyclomine 10 mg capsule 10 mg PO BID 05/20/24
loperamide 2 mg capsule (Anti-Diarrheal (loperamide)) 2 mg PO BID 05/20/24
metoprolol tartrate 50 mg tablet (Lopressor) 50 mg PO BID 05/22/24
Align 24/ 1 cap PO DAILY 08/07/24
calcium polycarbophil 625 mg tablet (FiberCon) 1,250 mg PO BID 08/07/24
escitalopram oxalate 20 mg tablet 20 mg PO QPM 08/07/24
levothyroxine 150 mcg tablet (Synthroid) 150 mcg PO DAILY 08/07/24
apmafmid-rjxk-hcmz 8 mg-folic 400 mcg-K 50 mcg-lutein 300 mcg tablet (Centrum Silver Women) 1 tab PO QPM 08/07/24
pantoprazole 40 mg tablet,delayed release 40 mg PO BID 08/07/24
triamterene 37.5 mg-hydrochlorothiazide 25 mg capsule 1 cap PO DAILY 08/07/24
Review of Systems
-
History Source: Patient
A 12 point ROS was completed and negative except as noted: Yes
Constitutional: Reports Fatigue; Denies Fever or Chills
EENT: Denies Sore Throat
Respiratory: Denies Cough or Trouble Breathing
Cardiac: Denies Chest Pain or Palpitations
Abdomen/GI: Reports Anorexia; Denies Abdominal Pain, Nausea, Vomiting, Diarrhea, Constipated, Bloody Stools or Black Stools
: Denies Dysuria or Frequency
Musculoskeletal: Denies Joint Pain or Edema
Neurological: Reports Dizzy and Weakness; Denies Headache or Numbness
Psych: Denies Depression or Anxiety
Physical Exam
Vital Signs
Vital Signs
Temp Pulse Resp BP Pulse Ox
98.0 F 53 14 108/52 97
08/06/24 21:40 08/07/24 02:00 08/07/24 02:00 08/07/24 02:00 08/07/24 01:20
Physical Exam
General: Other (78y F in no acute distress.)
HEENT: Other (Dry MM. Neck supple.)
Respiratory: Clear; No Wheezes, Rales or Rhonchi
Cardiac: S1/S2 and Regular Rhythm; No Murmur
GI: Other (Abdomen is firm and distended. Not tender. Pos BS.)
Musculoskeletal: No Clubbing, No Cyanosis and No Edema
Neuro: AO x 3 and Other (L facial droop / dysconjugate gaze. Pos dysarthria. Strength in extremities intact / symmetric.)
Laboratory Results
-
08/07/24 00:59
08/07/24 01:43
Laboratory Results
APTT 30.8 Sec (23.4-35.0) 08/07/24 00:59
Total Bilirubin 0.8 mg/dl (0.2-1.3) 08/07/24 01:43
AST 22 U/L (14-36) 08/07/24 01:43
ALT < 10 U/L (0-35) 08/07/24 01:43
Alkaline Phosphatase 66 U/L (38-126) 08/07/24 01:43
Troponin I 0.059 ng/ml H* 08/07/24 00:59
Impression/Plan
-
A/P: Patient is a 78y F with PMH significant for hypertension, hypothyroidism and leiomyomas who presents to ED complaining of weakness, functional decline and dysarthria.
Hypercalcemia
- Admit for further evaluation and treatment.
- ? if symptoms are secondary to symptomatic hypercalcemia / hypercalcemia of malignancy.
- Dose of pamidronate now.
- IVFs overnight and follow for improvement in labs, symptoms, etc.
Dysarthria / Ataxia
- ? secondary to hypercalcemia as noted above versus CVA versus other.
- CT head in the ED unremarkable.
- Patient with relative bradycardia and hypotension - not uncontrolled hypertension.
- Follow exam for any neurologic changes.
- ASA daily for now.
- MRI in AM.
- Neurology evaluation.
- PT / OT / Speech therapy evaluations.
Hyponatremia
Hypokalemia
- Likely some component of hypovolemia given poor PO intake, dry mucosa, etc.
- IVF support with supplemental potassium.
- Stop HCTZ.
- Hold otherh BP medications acutely given relative bradycardia / hypotension.
- Magnesium added to ED labs - replace if needed.
- Follow for improvement in labs / lytes.
Leiomyomatosis
- Multiple, large retroperitoneal masses initially identified in May of this year.
- Biopsy c/w spindle cell tumors / leiomyomas.
- Plan is for surgical procedure at [facility] in the near future.
- No abdominal pain at present.
- Follow for any new / worsening symptoms - consider repeat imaging if needed.
CKD III
- Stable. Has known L ureteral stent due to retroperitoneal masses as noted above.
- Renal function appears stable compared to prior baseline.
- Follow for any changes.
Hypothyroidism
- T4 dose recently increased to 200mcg daily based on prior TFTs.
GERD / IBS
- Stable. Hold usual meds for now and follow bowel habits.
- Resume usual regimen once acute issues are improved / resolved.
DVT Prophylaxis: SCDs
Code Status: Full
[2024-08-07 03:13] LABS: Magnesium 2.0 mg/dl (1.6-2.3)
--- NOTE | 2024-08-07 03:39 | EDRN ---
Discussed NIH stroke scale with 4th floor receiving RN and informed pt passed swallowing screen
[2024-08-07] MEDS: NSS with KCL 20 MEQ 1000 IV ×3 (05:02→22:45)
[2024-08-07] MEDS: AREDIA 280 MG IV (05:03)
[2024-08-07 05:18] LABS: Hematocrit 33.0 % (37.0-47.0); Hemoglobin 11.2 g/dL (12.0-16.0); Mean Corp Hgb Conc. 33.9 g/dL (33.0-37.0); Mean Corpuscular Volume 91.4 fL (81.0-99.0); Platelet Count 175 10^3/uL (130-400); Red Cell Dist. Width 13.9 % (11.5-14.5)
[2024-08-07 05:50] LABS: Blood Urea Nitrogen 20 mg/dl (7-17); Calcium 12.5 mg/dl (8.4-10.2); Carbon Dioxide 27 mmol/L (22-30); Chloride 96 mmol/L (98-107); Estimated Creatinine Clearance 30 ml/min; Glucose 103 mg/dl (70-99); HDL Cholesterol 69 mg/dl; LDL Cholesterol, Calculated 99 mg/dl; Potassium 2.6 mmol/L (3.5-5.1); Sodium 131 mmol/L (135-145); Very Low Density Lipoprotein 40 mg/dl (0-30); eGFR 32.60
[2024-08-07 05:57] LABS: Troponin I 0.058 ng/ml
--- NOTE | 2024-08-07 06:27 | PTCARENOTE ---
Receive pt from ER. Pt alert oriented X3, pleasant and cooperative. Pt assist X1 w/cane to her bed, feels weak on left leg. Pt oriented to the room, call martinez within reach. Pt's NIH=4, RF=609/49, HR=57, T=97.7, RR=18, SpO2=96% on RA. Pt on S. Harjeet
on telemonitor. SCDs placed on the pt. IVF + Aredia infusing as per order. Pt is NPO for reported swallowing issues. Will continue to monitor the pt.
[2024-08-07] MEDS: SYNTHROID 200 MCG PO (06:34)
[2024-08-07 07:57] LABS: Glycohemoglobin (HgbA1c) 5.7 % (4.0-5.6)
[2024-08-07] MEDS: LOW STRENGTH ASPIRIN 81 MG PO (08:14)
[2024-08-07] MEDS: PROTONIX 40 MG PO (08:14)
[2024-08-07] MEDS: XANAX 0.5 MG PO (08:28)
[2024-08-07] MEDS: KCL 260 MEQ IV (10:04)
[2024-08-07 11:23] LABS: Vitamin D, 25-OH*** 12.8 ng/mL (30-80)
[2024-08-07 11:31] LABS: Calcium 12.2 mg/dl (8.4-10.2)
[2024-08-07 11:34] LABS: Troponin I 0.050 ng/ml
--- NOTE | 2024-08-07 13:06 | CON.ONC ---
Consultation
-
Date Consultation Requested: 08/07/24
Date Consultation Performed: 08/07/24
Performing Provider: Dr. Larisa Tineo
Impression
Impression
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
[facility] ED with weakness and slurred speech.
Hypercalcemia
- Patient's repeat calcium is 12.2 after receiving pamidronate
- Scans reviewed, and we do not see any evidence of bone metastasis
Weakness and slurred speech
- Brain MRI did not show any evidence of disease
H/O of thyroid cancer s/p resection
- Patient taking 200mg of Synthroid, as recently adjusted by her [facility] [employer]
Plan
Plan
- Requesting outside records from [facility]
- Thyroid panel to further work up hypercalcemia
- PTH already ordered and pending
Patient History
History of Present Illness
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
[facility] ED with weakness and slurred speech. Patient has been experiencing a decline in physical function for a week, having trouble getting out of bed and needing to use her 's spare cane to get around. Patient noted the weakness is worse
in her left leg. Patient's family members also have noticed that she has been slurring her speech as well as a change in mental status over the last week. Patient also notes poor PO intake over this time.
05/19/2024, patient presented to [facility] with left flank pain and was found to have numerous retroperitoneal tumors. Biopsy at this time indicated smooth muscle neoplasm. A left uretal stent was placed at this time. A follow up biopsy on
06/30/24 showed spindle cell neoplasm. Patient was being seen by [facility] but has transferred care to [facility] for her current diagnosis of spindle cell neoplasm of smooth cell. They are discussing the plan for possible surgery, and let
the family know today that they are considering a kidney scan before making additional decisions. They are aware that the patient is hospitalized at [facility].
In the ED, patient had labwork completed which revealed an elevated calcium of 12.5. Patient received pamidronate. Repeat calcium is 12.2. Patient had a Brain MRI completed this morning, read indicating no evidence of disease and no acute
abnormality.
Patient denies changes in vision, headaches, dizziness, changes in bowel movements or urinary symptoms or pain. Patient states she has early satiety as well as baseline IBS symptoms including diarrhea and constipation.
Past-Medical/Surgical History
Past Medical History:
Spindle Cell Tumors / Leiomyomas
Thyroid Cancer s/p Resection
Hypothyroidism
GERD
IBS
Hypertension
Anxiety
Past Surgical History:
BETINA / BSO - 2015
Retroperitoneal Biopsy (x 2)
Left Ureteral Stent - May 2024
Appendectomy
Thyroidectomy
Cholecystectomy
Bilateral TKA
Paraesophageal hernia repair / Fundoplication
Patient Medication
�Medication �Instructions �Recorded �Confirmed �Last Taken �Type
montelukast 10 mg tablet 10 mg PO QPM 03/31/11 08/07/24 06/29/24 History
fexofenadine 60 mg tablet (Pushpa) 60 mg PO BID 08/30/17 08/07/24 06/29/24 History
cholestyramine 4 gram oral powder 1 g PO DAILY 05/20/24 08/07/24 06/29/24 History
dicyclomine 10 mg capsule 10 mg PO BID 05/20/24 08/07/24 06/29/24 History
loperamide 2 mg capsule 2 mg PO BID 05/20/24 08/07/24 06/29/24 History
(Anti-Diarrheal (loperamide))
metoprolol tartrate 50 mg tablet 50 mg PO BID 05/22/24 08/07/24 06/30/24 History
(Lopressor)
Align 24 1 cap PO DAILY 08/07/24 08/07/24 Unknown History
calcium polycarbophil 625 mg 1,250 mg PO BID 08/07/24 08/07/24 Unknown History
tablet (FiberCon)
escitalopram oxalate 20 mg tablet 20 mg PO QPM 08/07/24 08/07/24 Unknown History
levothyroxine 150 mcg tablet 150 mcg PO DAILY 08/07/24 08/07/24 Unknown History
(Synthroid)
jqphjwug-ddpw-ppej 8 mg-folic 400 1 tab PO QPM 08/07/24 08/07/24 Unknown History
mcg-K 50 mcg-lutein 300 mcg tablet
(Centrum Silver Women)
pantoprazole 40 mg tablet,delayed 40 mg PO BID 08/07/24 08/07/24 Unknown History
release
triamterene 37.5 1 cap PO DAILY 08/07/24 08/07/24 Unknown History
mg-hydrochlorothiazide 25 mg
capsule
Active Medications
Generic Name Dose Route Start Last Admin
Trade Name Freq PRN Reason Stop Dose Admin
Acetaminophen 650 mg 08/07/24 04:22
Acetaminophen 325 Mg Tablet PO 09/04/24 04:21
Q4HPRN PRN
Mild Pain / Temp > 101
Aspirin 81 mg 08/07/24 08:00 08/07/24 08:14
Aspirin 81 Mg Chewable Tablet PO 09/04/24 07:59 81 mg
DAILY MARILYN Administration
Escitalopram Oxalate 20 mg 08/07/24 18:00
Escitalopram 20 Mg Tablet PO 09/04/24 17:59
QPM MARILYN
Heparin Sodium 5,000 units 08/07/24 16:00
Heparin 5,000 Units/Ml 1 Ml Vial SC 09/04/24 15:59
Q8 MARILYN
Potassium Chloride/Sodium Chloride 20 meq in 1,000 mls @ 150 mls/hr 08/07/24 04:22 08/07/24 12:38
Nss With Kcl 20 Meq IV 1,000 mls
.Q6H40M MARILYN Administration
Levothyroxine Sodium 200 mcg 08/07/24 06:00 08/07/24 06:34
Levothyroxine 100 Mcg Tablet PO 09/04/24 05:59 200 mcg
DAILY @ 0600 MARILYN Administration
Pantoprazole Sodium 40 mg 08/07/24 08:00 08/07/24 08:14
Pantoprazole 40 Mg Delayed Release Tablet PO 09/04/24 07:59 40 mg
DAILY MARILYN Administration
Sodium Chloride 0 flush 08/07/24 03:00 08/07/24 02:40
Sodium Chloride 0.9% (Flush) Syringe IV 09/04/24 02:59 1 flush
PER PROTOCOL MARILYN Administration
Review of Systems
-
History Source: Patient
Constitutional: Reports Weight Loss
EENT: Reports No Symptoms
Respiratory: Reports No Symptoms
Cardiac: Reports No Symptoms
GI: Reports Diarrhea and Constipated (at baseline due to IBS diagnosis)
: Reports No Symptoms
Neuro: Reports Weakness (left lower extremity more than right)
Endocrine: Reports No Symptoms
Hematologic/Lymphatic: Reports No Symptoms
Psych: Reports No Symptoms
Physical Exam
-
General: No Apparent Distress and Comfortable
Cardiology: Normal Sinus Rhythm
Pulmonary: Clear
GI: Distended
Musculoskeletal: No Edema
Extremities: Pulses Present
Neurology: Non Focal
Skin: Warm and Dry
Hematologic / Lymphatic: No Lymphadenopathy
Psych: Calm
Labs
Lab Results
WBC 9.9 10^3/uL (4.8-10.8) 08/07/24 04:44
RBC 3.61 10^6/uL (4.20-5.40) L 08/07/24 04:44
Hgb 11.2 g/dL (12.0-16.0) L 08/07/24 04:44
Hct 33.0 % (37.0-47.0) L 08/07/24 04:44
MCV 91.4 fL (81.0-99.0) 08/07/24 04:44
MCH 31.0 pg (27.0-31.0) 08/07/24 04:44
MCHC 33.9 g/dL (33.0-37.0) 08/07/24 04:44
RDW 13.9 % (11.5-14.5) 08/07/24 04:44
Plt Count 175 10^3/uL (130-400) 08/07/24 04:44
MPV 10.6 fL (7.4-10.4) H 08/07/24 04:44
Abs Immat Gran (auto) 0.1 10^3/uL (0-0.05) H 08/07/24 00:59
Absolute Neuts (auto) 7.5 10^3/uL (1.4-6.5) H 08/07/24 00:59
Absolute Lymphs (auto) 1.5 10^3/uL (1.2-3.4) 08/07/24 00:59
Absolute Monos (auto) 0.8 10^3/uL (0.1-0.6) H 08/07/24 00:59
Absolute Eos (auto) 0.1 10^3/uL (0-0.7) 08/07/24 00:59
Absolute Basos (auto) 0.1 10^3/uL (0-0.2) 08/07/24 00:59
Immature Gran % 0.5 % (0-0.5) 08/07/24 00:59
Neutrophils % 75.8 % (42.2-75.2) H 08/07/24 00:59
Lymphocytes % 14.7 % (20.5-51.1) L 08/07/24 00:59
Monocytes % 7.6 % (1.7-9.3) 08/07/24 00:59
Eosinophils % 0.9 % (0-6) 08/07/24 00:59
Basophils % 0.5 % (0-2) 08/07/24 00:59
Creatinine 1.6 mg/dL (0.6-1.0) H 08/07/24 04:44
Vital Signs
Vital Signs
Temp Pulse Resp BP Pulse Ox
97.6 F 54 18 110/59 96
08/07/24 11:20 08/07/24 11:20 08/07/24 11:20 08/07/24 11:20 08/07/24 11:20
--- NOTE | 2024-08-07 13:26 | PTOTSP ---
Speech Therapy Evaluation:
Pt with chronic risk factors of dysphagia including hx of thyroid CA s/p resection and XRT, Spindle Cell CA, and GERD. Pt with weakness and slurred speech, however MRI negative. Pt reported new onset of swallow dysfunction with inability to swallow
pills. At bedside pt with prolonged oral phase, oral holding, and suspected delayed initiation of pharyngeal swallow. Given hx of thyroid CA with XRT and pt reported difficulty, recommend instrumental assessment of swallowing prior to diet
initiation.
Recommend:
1. Temporary NPO
2. Medications non-oral
3. VSE
4. Further recommendations pending results of VSE
[2024-08-07 15:00] LABS: Potassium 3.5 mmol/L (3.5-5.1)
--- NOTE | 2024-08-07 15:00 | PTOTSP ---
Speech Therapy VSE:
Patient presents with functional oral and pharyngeal stage of swallowing. No confirmed penetration or aspiration across the study. No significant pharyngeal residue. Barium tablet with thin liquid was swallowed successfully without impairment.
Please see patient care note for full details of penetration and swallowing physiology.
Recommend:
1. Initiate regular solids and thin liquids
2. Medications as tolerated. Can administer crushed versus whole in pure for comfort, however no impairment with barium tablet on study
3. Aspiration and reflux precautions
4. No further skilled intervention warranted. FLOOR SCRUBBER to s/o
--- NOTE | 2024-08-07 15:21 | W.PN.HOSP.TC ---
Today's Communication/Plan
-
Continue IV fluids
Follow calcium
Assessment / Plan
Assessment / Plan
78 y/o Weakness, Slurred Speech
Head CT-no acute changes. Dilatation of the ventricular system may be related to cerebral atrophy. Lateral ventricles are slightly more dilated than the third and fourth ventricles, and hydrocephalus should be considered in the setting of balance
problems.
MRI of the brain-no acute changes. Mild atrophy with slightly of mild chronic small less than ischemic disease
EKG-sinus bradycardia right bundle branch block
Patient is awake and alert oriented
Speech is thick but no slurring noted
Cardiovascular system S1-S2 appreciated
Chest clear to auscultation
Abdomen slightly distended, bowel sounds present
Neuroexam good strength bilateral upper extremities extremities, no facial droop
# Dysarthria/ataxia
Unclear if secondary to hypercalcemia versus CVA
Continue aspirin
Neurology evaluation awaited
MRI-no acute changes
PT OT and speech eval appreciated
Normal video swallow exam
# Hypercalcemia
Unclear reasons,
Malignancy related?
Status post pamidronate
Check intact PTH, PTH related peptide
Low vitamin D levels noted
Continue IV fluids
Hematology oncology evaluation given history of thyroid cancer and current pelvic mass
# Hyponatremia- Improving
Stop HCTZ. Do not resume
# Hypertension-continue Lopressor. Hold triamterene hydrochlorothiazide
# Troponin elevation-nonischemic myocardial injury likely. Follow till peaks. Patient denies any chest pain or shortness of
# Hypokalemia-Replaced. Normal Mag
# Hypothyroidism-continue levothyroxine. History of thyroid surgery for thyroid cancer with history of radioablation-currently on levothyroxine 200 mcg daily
# CKD stage III-known left ureteral stent secondary to retroperitoneal masses
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 Plan is for surgical procedure
at [place] in the near future. Patient sees Dr. Shawn Gray
[facility] records-histologic features consistent with atypical smooth muscle of malarian origin although there is only mild atypia and no increased mitosis in the biopsy specimen differential includes well-differentiated leiomyosarcoma.
History of BETINA and BSO at [facility] in 2016 for spindle cell lesion
# Depression-continue Lexapro
# Right bundle branch block
# GERD-history of hiatal hernia repair with mesh and posterior partial fundoplication by Dr. Franco 2018-continue PPI
# Vitamin D deficiency-start replacement once calcium has normalized
# Chronic back pain with herniated disks
# IBS-on fiber, Bentyl, Imodium and Questran as outpatient
# DVT prophylaxis-subcutaneous heparin
# Full code
Outside records from [place] noted.
Part of this note was created using voice recognition system. Occasional wrong word or��sound alike� substitutions may have inadvertently occurred due to the inherent limitations of voice recognition software. If noted kindly bring it to my
attention for correction.
Anticipated Discharge: 24 - 48 hours
Subjective/Interval History
-
Date of Service: August 07, 2024
Objective Data
-
Labs:
Laboratory Results
08/07/24 08/07/24 08/07/24
04:44 11:00 13:25
WBC 9.9
Hgb 11.2 L
Hct 33.0 L
Plt Count 175
Sodium 131 L
Potassium 2.6 L* 3.5 D
Chloride 96 L
Carbon Dioxide 27
BUN 20 H
Creatinine 1.6 H
Glucose 103 H
Calcium 12.5 H 12.2 H
Vital Signs:
Vital Signs
Temp Pulse Resp BP Pulse Ox
97.6 F 54 18 110/59 96
08/07/24 11:20 08/07/24 11:20 08/07/24 11:20 08/07/24 11:20 08/07/24 11:20
I&O
08/06/24 08/07/24 08/08/24
06:59 06:59 06:59
Intake Total 480 / 480
Balance 480 / 480
--- NOTE | 2024-08-07 16:14 | CM ---
Alert awake oriented patient who lives with her Enmanuel in a 2 story home with 2 steps to enter and stair glide to bed/bathroom. She is independent in activates of daily living.She does drive .She used a cane.
No VN in past . No SNF hx
Ph[facility]acy [facility]
PCP Dr Samson Davenport
PLAN Will need PT OT for dc planning
[2024-08-07] MEDS: HEPARIN 5000 UNITS SC ×2 (16:31→23:20)
[2024-08-07] MEDS: KCL 20 MEQ PO (16:31)
[2024-08-07 17:07] LABS: Troponin I 0.039 ng/ml
[2024-08-07] MEDS: LEXAPRO 20 MG PO (17:12)
[2024-08-07 17:17] LABS: TSH 60.00 uIU/ml (0.47-4.68)
--- NOTE | 2024-08-07 18:20 | CON.NEURO ---
Neuro Assessment/Plan
Assessment
brain MRI imgs rev'd, no acute findings. mild atrophy and microvascular changes
Exam consistent with stroke right yeison with subtle right facial droop and left sided weakness and numbness, too small to show on MRI. posterior circulation. This would explain her slurred speech and left sided weakness but not confusion/fatigue
which may better explained by the hypercalcemia
Plan
continue ASA 81, add lipitor 40, add 21 days of Plavix, check carotid u/s
Consultation
Order
Date of Consultation: 08/07/24
Requesting Provider: Ascenc[facility] August
Reason for Consult: stroke
Subjective/Objective
Subjective Data
Date of Service: August 07, 2024
from h&p:
Patient is a 78y F with PMH significant for hypertension, IBS and recent diagnosis of spindle cell cancer / leiomyomatosis who presents to ED complaining of weakness and slurred speech. Patient is being evaluated at [facility] for multiple
intra-abdominal / retroperitoneal tumors (biopsy x 2 here consistent with spindle cell / leiomyoma). She is on no new medications / active therapy for this. Patient states that she has had poor appetite / decreased PO intake recently. Over the
past week she describes a functional decline with weakness and unsteady gait. She has taken to using a cane which has not previously needed. Family has also appreciated slurring speech and intermittent confusion.
Patient reports that symptoms have been progressive for about one week. She initially resisted family recommendations that she present to the hospital, but tonight she agreed.
No prior FL, CVA, etc.
Only recent med change was increase in levothyroxine from 150mcg to 200mcg daily based on labs done at [facility].
when prompted, she agrees that left side is weaker than right, no numbness, no facial droop, no prior h/o of strokes. Today patient and her son believe she has improved though son still notes mild slurred speech and cognitive slowing
Objective Data
Vital Signs
Temp Pulse Resp BP Pulse Ox
36.7 C 63 18 117/60 96
08/07/24 15:10 08/07/24 15:10 08/07/24 15:10 08/07/24 15:10 08/07/24 15:10
Lab Results
08/07/24 04:44
08/07/24 13:25
APTT 30.8 Sec (23.4-35.0) 08/07/24 00:59
Sodium 131 mmol/L (135-145) L 08/07/24 04:44
Potassium 3.5 mmol/L (3.5-5.1) D 08/07/24 13:25
BUN 20 mg/dl (7-17) H 08/07/24 04:44
Glucose 103 mg/dl (70-99) H 08/07/24 04:44
Calcium 12.2 mg/dl (8.4-10.2) H 08/07/24 11:00
LDL Cholesterol, Calc 99 mg/dl 08/07/24 04:44
Patient Allergies
codeine (Codeine) Allergy (Verified 08/06/24 21:40)
vomiting
erythromycin base (Erythromycin Base) Allergy (Verified 08/06/24 21:40)
vomiting
hydrocodone (Hydrocodone) Allergy (Verified 08/06/24 21:40)
swelling, vomiting
Iodinated Contrast Media (IV Dye, Iodine Containing Contrast ) Allergy (Verified 08/06/24 21:40)
Swelling
NSAIDS (Non-Steroidal Anti-Inflamma Allergy (Verified 08/06/24 21:40)
INTERNAL BLEEDING, ANEMIA
oxycodone Allergy (Verified 08/06/24 21:40)
Vomiting
Physical Exam
-
AAOx3, speech clear
VFF, EOMI, trace right facial droop
subtle left sided weakness, left pronator drift
+left sided vibratory loss
reflexes 1+ biceps/knees b/l
finger to nose distal 1/3 dysmetria b/l
Medications
-
Active Medications
Generic Name Dose Route Start Last Admin
Trade Name Freq PRN Reason Stop Dose Admin
Acetaminophen 650 mg 08/07/24 04:22
Acetaminophen 325 Mg Tablet PO 09/04/24 04:21
Q4HPRN PRN
Mild Pain / Temp > 101
Aspirin 81 mg 08/07/24 08:00 08/07/24 08:14
Aspirin 81 Mg Chewable Tablet PO 09/04/24 07:59 81 mg
DAILY MARILYN Administration
Escitalopram Oxalate 20 mg 08/07/24 18:00 08/07/24 17:12
Escitalopram 20 Mg Tablet PO 09/04/24 17:59 20 mg
QPM MARILYN Administration
Heparin Sodium 5,000 units 08/07/24 16:00 08/07/24 16:31
Heparin 5,000 Units/Ml 1 Ml Vial SC 09/04/24 15:59 5,000 units
Q8 MARILYN Administration
Potassium Chloride/Sodium Chloride 20 meq in 1,000 mls @ 120 mls/hr 08/07/24 04:22 08/07/24 12:38
Nss With Kcl 20 Meq IV 1,000 mls
.Q8H20M MARILYN Administration
Levothyroxine Sodium 200 mcg 08/07/24 06:00 08/07/24 06:34
Levothyroxine 100 Mcg Tablet PO 09/04/24 05:59 200 mcg
DAILY @ 0600 MARILYN Administration
Pantoprazole Sodium 40 mg 08/07/24 08:00 08/07/24 08:14
Pantoprazole 40 Mg Delayed Release Tablet PO 09/04/24 07:59 40 mg
DAILY MARILYN Administration
Sodium Chloride 0 flush 08/07/24 03:00 08/07/24 02:40
Sodium Chloride 0.9% (Flush) Syringe IV 09/04/24 02:59 1 flush
PER PROTOCOL MARILYN Administration
Home Medications
�Medication �Instructions �Recorded
montelukast 10 mg tablet 10 mg PO QPM 03/31/11
fexofenadine 60 mg tablet (Pushpa) 60 mg PO BID 08/30/17
cholestyramine 4 gram oral powder 1 g PO DAILY 05/20/24
dicyclomine 10 mg capsule 10 mg PO BID 05/20/24
loperamide 2 mg capsule 2 mg PO BID 05/20/24
(Anti-Diarrheal (loperamide))
metoprolol tartrate 50 mg tablet 50 mg PO BID 05/22/24
(Lopressor)
Align 24/7 1 cap PO DAILY 08/07/24
calcium polycarbophil 625 mg 1,250 mg PO BID 08/07/24
tablet (FiberCon)
escitalopram oxalate 20 mg tablet 20 mg PO QPM 08/07/24
levothyroxine 150 mcg tablet 150 mcg PO DAILY 08/07/24
(Synthroid)
ucgwzwau-poae-ccuq 8 mg-folic 400 1 tab PO QPM 08/07/24
mcg-K 50 mcg-lutein 300 mcg tablet
(Centrum Silver Women)
pantoprazole 40 mg tablet,delayed 40 mg PO BID 08/07/24
release
triamterene 37.5 1 cap PO DAILY 08/07/24
mg-hydrochlorothiazide 25 mg
capsule
[2024-08-07] MEDS: LIPITOR 40 MG PO (18:36)
[2024-08-07] MEDS: TYLENOL 650 MG PO (20:23)
[2024-08-08] VITALS (8 sets, daily range): BP systolic 110–133; BP diastolic 51–75; PULSE 62–99; O2SAT 97; BMI 30.4
[2024-08-08] MEDS: TYLENOL 325 MG PO ×2 (02:44→06:35)
[2024-08-08] MEDS: ULTRAM 25 MG PO (05:21)
[2024-08-08] MEDS: SYNTHROID 200 MCG PO (05:23)
[2024-08-08] MEDS: NSS with KCL 20 MEQ 1000 IV (07:17)
[2024-08-08 08:46] LABS: Blood Urea Nitrogen 16 mg/dl (7-17); Calcium 10.8 mg/dl (8.4-10.2); Carbon Dioxide 20 mmol/L (22-30); Chloride 107 mmol/L (98-107); Estimated Creatinine Clearance 35 ml/min; Glucose 112 mg/dl (70-99); Potassium 3.7 mmol/L (3.5-5.1); Sodium 133 mmol/L (135-145); eGFR 38.27
[2024-08-08] MEDS: PROTONIX 40 MG PO (08:49)
[2024-08-08] MEDS: HEPARIN 5000 UNITS SC ×3 (08:49→23:25)
[2024-08-08] MEDS: LOW STRENGTH ASPIRIN 81 MG PO (08:49)
[2024-08-08] MEDS: PLAVIX 75 MG PO (08:49)
[2024-08-08] MEDS: LIDOCAINE 4% PATCH 1 PATCH TOPICAL ×2 (08:52→13:19)
[2024-08-08] MEDS: ZOFRAN 4 MG IV (10:30)
--- NOTE | 2024-08-08 11:57 | W.PN.ONC ---
Today's Communication / Plan
-
- Continue to monitor calcium
- Patient will follow up with Dr. Teixeira and [facility] regarding plan for surgery
Impression
Impression
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
[facility] ED with weakness and slurred speech.
Hypercalcemia
- Patient's repeat calcium today is 10.8 after receiving pamidronate
- Possible cause of weakness leading to admission
- Scans reviewed, no bone mets seen
Spindle Cell Neoplams of Smooth Muscle
- Records reviewed from [facility]
- Patient to continue follow up with Dr. Teixeira after discharge
Weakness and slurred speech
- Brain MRI does not show any evidence of disease or have abnormal findings, but per neuro consult exam consistent with R yeison stroke
H/O of thyroid cancer s/p resection
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
Plan
Plan
- Continue to monitor calcium
- Patient will follow up with Dr. Teixeira and [facility] regarding plan for surgery
Subjective/Objective
Subjective/Objective
Today patient was seen with her at the bedside. Patient is complaining of left sided flank pain. She states last night it was 9/10 pain scale, but today after receiving pain medication it is a 1/10. Patient is feeling a little nauseous and
has had poor PO intake. Patient denies headaches, vision changes, chest pain, trouble breathing, abdominal pain, dysuria, changes in bowel movments from baseline IBS, or swelling.
Vital Signs:
Vital Signs
Temp Pulse Resp BP Pulse Ox
97.7 F 72 16 130/60 97
08/08/24 07:15 08/08/24 07:15 08/08/24 07:15 08/08/24 07:15 08/08/24 07:15
Lab Results:
Laboratory Data
WBC 9.9 10^3/uL (4.8-10.8) 08/07/24 04:44
Hgb 11.2 g/dL (12.0-16.0) L 08/07/24 04:44
Plt Count 175 10^3/uL (130-400) 08/07/24 04:44
APTT 30.8 Sec (23.4-35.0) 08/07/24 00:59
eGFR 38.27 08/08/24 07:58
--- NOTE | 2024-08-08 12:19 | PN.CDI ---
CDI
- -
CDI:
Physician Documentation Request
Admit Date: 08/07/24 03:05
Dear Doctor Mata,
Patient admitted with ataxia and dysarthria.
08/07 Nutrition assessment, 'With weight loss of > 7.5% in three months and < 75% estimated needs > 1 month pt meets AND/ASPEN criteria for moderate protein calorie malnutrition. '
Please provide in your note the diagnosis associated with the patient's nutritional findings and your assessment:
Moderate protein calorie malnutrition
Other
[place] Criteria ([facility] Hospitalist 2017)
2 or more criteria must be present for either
non severe or severe malnutrition
Note that the criteria differs related to the
presence of an acute or chronic illness
Acute Illness Chronic Illness
Energy Intake Non Severe: <75% for >7 days Non Severe: <75% for >1 month
Severe: <50% for >5 days Severe: <75% for >1 month
Weight Loss Non Severe: 1-2% over 1 week Non Severe: 5% over 1 month
5% over 1 month 7.5% over 3 months
7.5% over 3 months 10% over 6 months
1 year N/A 20% over 1 year
Severe: >2% over 1 week Severe: >5% over 1 month
>5% over 1 month >7.5% over 3 months
>7.5% over 3 months >10% over 6 months
1 year N/A >20% over 1 year
Body Fat Non Severe: Mild Decrease Non Severe: Mild Loss
Severe: Moderate Decrease Severe: Severe Loss
Muscle Mass Non Severe: Mild Decrease Non Severe: Mild Loss
Severe: Moderate Decrease Severe: Severe Loss
Fluid Accumulation Non Severe: Mild Accumulation Non Severe: Mild Accumulation
Severe: Moderate to severe Severe: Moderate to severe
accumulation accumulation
Reduced Jig And Fixture Maker Strength Non Severe: N/A Non Severe: N/A
Severe: Measurably reduced Severe: Measurably reduced
Use of terms such as suspected, likely, concern for, or probable (associated with a specific diagnosis that is being evaluated, monitored, or treated as if it exists) are acceptable and can be coded in the inpatient setting, when documented at the
time of discharge.
Thank you,
Adelina DRAKE,RN,CCDS
CDI Specialist
Available via Ruby text
Please use your independent medical judgment in providing your response.
[2024-08-08] MEDS: ULTRAM 50 MG PO ×2 (13:16→21:13)
[2024-08-08] MEDS: TYLENOL 650 MG PO ×2 (13:20→21:14)
[2024-08-08] MEDS: NSS with KCL 20 MEQ IV (13:41)
--- NOTE | 2024-08-08 14:37 | W.PN.HOSP.TC ---
Today's Communication/Plan
-
CT scan of the abdomen and pelvis
Carotid Doppler results pending
Follow calcium
Pain management for left flank pain
Consult physiatry for acute rehab placement
Assessment / Plan
Assessment / Plan
78 y/o Weakness, Slurred Speech
Head CT-no acute changes. Dilatation of the ventricular system may be related to cerebral atrophy. Lateral ventricles are slightly more dilated than the third and fourth ventricles, and hydrocephalus should be considered in the setting of balance
problems.
MRI of the brain-no acute changes. Mild atrophy with slightly of mild chronic small less than ischemic disease
EKG-sinus bradycardia right bundle branch block
Patient is awake and alert oriented
Speech is thick but no slurring noted
Cardiovascular system S1-S2 appreciated
Chest clear to auscultation
Abdomen slightly distended, bowel sounds present
Neuroexam good strength bilateral upper extremities extremities
# Dysarthria/ataxia
Unclear if secondary to hypercalcemia versus CVA
Continue aspirin, Plavix added for stroke per neurology
Neurology evaluation appreciated
MRI-no acute changes but neurology feels that there might be right pontine stroke
PT OT and speech eval appreciated
Normal video swallow exam
Acute rehab recommended by PT
Carotid ultrasound pending
Consult Dr. Prabhakar
# Left flank pain
Patient has a renal stent
Discussed with patient regarding pain management she does not want to take oxycodone, morphine or Dilaudid even though these are listed as vomiting which is an adverse reaction than an allergy. She is not willing to consider that. Tramadol,
Tylenol and lidocaine patch ordered. I also discussed with the patient that this could be a problem with pain management if she gets surgery in future.
Check CT of the abdomen and pelvis to rule out hydronephrosis/obstructed stent.
# Hypercalcemia
Unclear reasons,
Malignancy related?
Status post pamidronate
Check intact PTH, PTH related peptide-pending
Low vitamin D levels noted, replace once calcium has normalized
Continue IV fluids
Hematology oncology evaluation given history of thyroid cancer and current pelvic mass
# Hyponatremia- Improving
Stop HCTZ. Do not resume
# Hypertension-continue Lopressor. Hold triamterene hydrochlorothiazide
# Troponin elevation-nonischemic myocardial injury likely. Patient denies any chest pain or shortness of breath.
# Hypokalemia-Replaced. Normal Mag
# Hypothyroidism-continue levothyroxine. History of thyroid surgery for thyroid cancer with history of radioablation-currently on levothyroxine 200 mcg daily
# CKD stage III-known left ureteral stent secondary to retroperitoneal masses
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 Plan is for surgical procedure
at [place] in the near future. Patient sees Dr. Shawn Gray
[facility] records-histologic features consistent with atypical smooth muscle of malarian origin although there is only mild atypia and no increased mitosis in the biopsy specimen differential includes well-differentiated leiomyosarcoma.
History of BETINA and BSO at [facility] in 2016 for spindle cell lesion
# Depression-Continue Lexapro
# Right bundle branch block
# GERD-History of Hiatal Hernia Repair with mesh and posterior partial fundoplication by Dr. Franco 2018-continue PPI
# Vitamin D deficiency-start replacement once calcium has normalized
# Chronic back pain with herniated disks
# IBS-on fiber, Bentyl, Imodium and Questran as outpatient
# DVT prophylaxis-subcutaneous heparin
# Full code
Outside records from [place] noted.
Discussed with son at bedside
Discussed with nursing
Part of this note was created using voice recognition system. Occasional wrong word or��sound alike� substitutions may have inadvertently occurred due to the inherent limitations of voice recognition software. If noted kindly bring it to my
attention for correction.
Anticipated Discharge: Within 24 hours
Subjective/Interval History
-
Date of Service: August 08, 2024
Objective Data
-
Labs:
Laboratory Results
08/08/24
07:58
Sodium 133 L
Potassium 3.7
Chloride 107
Carbon Dioxide 20 L
BUN 16
Creatinine 1.4 H
Glucose 112 H
Calcium 10.8 H
Vital Signs:
Vital Signs
Temp Pulse Resp BP Pulse Ox
97.4 F 70 16 119/59 95
08/08/24 11:10 08/08/24 11:10 08/08/24 11:10 08/08/24 11:10 08/08/24 11:10
I&O
08/07/24 08/08/24 08/09/24
06:59 06:59 06:59
Intake Total 480 / 480
Balance 480 / 480
--- NOTE | 2024-08-08 16:39 | CM ---
PT evals = Acute rehab VS SNF.
Spoke with son Reggie at bedside at length reviewing options.
Requested Jen from [place] reviewed acute rehab .\\
Pac data given to son about local SNF.
Awaiting family decision to dc plan .
PLAN SNF VS Acute rehab
[2024-08-08] MEDS: LEXAPRO 20 MG PO (16:45)
[2024-08-08] MEDS: LIPITOR 40 MG PO (16:45)
--- NOTE | 2024-08-08 20:45 | CONS.URO ---
Consultation
-
Date/Time Consultation Performed: 08/08/242044
Performing Provider: Peffer
Reason for Consultation: Ureteral obstruction
Medical History
History of Present Illness
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
Seen by Dr. Moe in 05/2024 and L ureteral stent was placed
This seemed to help symptoms initially but severe flank pain has returned along with patient's other presenting symptoms
CT scan showed stable L hydronephrosis appearing unchanged from prior to stent placement, c/w stent failure
Past Medical History
Past Medical History: Other (Spindle Cell Tumors / Leiomyomas Thyroid Cancer s/p Resection and XRT Hypothyroidism SVT GERD / IBS Hypertension Anxiety)
Past Surgical History: Other (BETINA / BSO Retroperitoneal Biopsy (x 2) Left Ureteral Stent Appendectomy Thyroidectomy Cholecystectomy Bilateral TKA Paraesophageal hernia repair / Fundoplication)
Social History
Tobacco: Non-smoker
Alcohol: None
Drug: None
Family History
Family History: Reviewed & Not Pertinent
Allergies/Home Medications
Allergies
Allergy/AdvReac Type Severity Reaction Status Date / Time
codeine (Codeine) Allergy vomiting Verified 08/06/24 21:40
erythromycin base Allergy vomiting Verified 08/06/24 21:40
(Erythromycin Base)
hydrocodone (Hydrocodone) Allergy swelling, Verified 08/06/24 21:40
vomiting
Iodinated Contrast Media (IV Allergy Swelling Verified 08/06/24 21:40
Dye, Iodine Containing
Contrast )
NSAIDS (Non-Steroidal Allergy INTERNAL Verified 08/06/24 21:40
Anti-Inflamma BLEEDING,
ANEMIA
oxycodone Allergy Vomiting Verified 08/06/24 21:40
Home Medications
�Medication �Instructions �Recorded �Confirmed �Type
montelukast 10 mg tablet 10 mg PO QPM Allergies 03/31/11 08/07/24 History
fexofenadine 60 mg tablet (Pushpa) 60 mg PO BID Allergies 08/30/17 08/07/24 History
cholestyramine 4 gram oral powder 1 g PO DAILY High Cholesterol 05/20/24 08/07/24 History
dicyclomine 10 mg capsule 10 mg PO BID Muscle Spasms 05/20/24 08/07/24 History
loperamide 2 mg capsule 2 mg PO BID Gastrointestinal Issue 05/20/24 08/07/24 History
(Anti-Diarrheal (loperamide))
metoprolol tartrate 50 mg tablet 50 mg PO BID Blood Pressure 05/22/24 08/07/24 History
(Lopressor)
Align 31/08 1 cap PO DAILY Supplement 08/07/24 08/07/24 History
calcium polycarbophil 625 mg 1,250 mg PO BID Supplement 08/07/24 08/07/24 History
tablet (FiberCon)
escitalopram oxalate 20 mg tablet 20 mg PO QPM Mental Health/Anxiety 08/07/24 08/07/24 History
levothyroxine 150 mcg tablet 150 mcg PO DAILY Thyroid 08/07/24 08/07/24 History
(Synthroid)
azuhhqhe-zthy-rywp 8 mg-folic 400 1 tab PO QPM Supplement 08/07/24 08/07/24 History
mcg-K 50 mcg-lutein 300 mcg tablet
(Centrum Silver Women)
pantoprazole 40 mg tablet,delayed 40 mg PO BID Gastrointestinal Issue 08/07/24 08/07/24 History
release
triamterene 37.5 1 cap PO DAILY Blood Pressure 08/07/24 08/07/24 History
mg-hydrochlorothiazide 25 mg
capsule
Physical Exam
Vital Signs
Vital Signs
Temp Pulse Resp BP Pulse Ox
97.7 F 84 18 123/72 96
08/08/24 19:40 08/08/24 19:40 08/08/24 19:40 08/08/24 19:40 08/08/24 19:40
Lab / Testing Results
Laboratory Results
08/07/24 04:44
08/08/24 07:58
Physical Exam
General: Well Developed, Well Nourished and No Apparent Distress
Respiratory: Clear and Non Labored Respirations
GI: Soft and Distended
Genito-urinary: Costovertebral Angle Tend
Neuro: AO x 3
Psych: Calm and Intact Judgement
Assessment / Plan
-
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
Admitted for altered mental status, gait dysfunction, hypercalcemia
Recurrence of L flank pain and L hydronephrosis after stent placement mid May 2024
- Persistent/recurrent obstruction and L hydronephrosis suggests failure of indweling ureteral stent
- Stable renal function since prior to initial stent placement - unknown if L ureter obstruction contributes or if this is nonobstructive CKD
- Discussed with patient options of replacing the ureteral stent vs nephrostomy tube placement. Given stent was placed nearly 3 months ago, stent exchange could resume drainage of the kidney. However, given possible progression of tumor and unclear
timing of pending intervention, nephrostomy tube would be a more definitive drainage of the L kidney and avoid additional problems that could further delay treatment.
- Patient agreed to proceed with L nephrostomy tube placement
- Consult placed to IR
- Will make NPO for tomorrow AM
- Indwelling ureteral stent will eventually need to be removed, however this may be helpful during surgery to locate the ureter - will leave stent removal timing up to the operating surgical team
Data Reviewed
-
CT Scan: Image personally visualized and interpreted
Lab Data: Labs Reviewed
Old Records: Reviewed
[2024-08-08 21:05] LABS: Urine Character Clear (Clear)
[2024-08-08] MEDS: REMOVE LIDOCAINE PATCH 1 PATCH REMOVE (21:08)
[2024-08-08 21:11] LABS: Urine Squamous Cell 26-30 /LPF (Few)
[2024-08-08 21:12] LABS: Urine White Cell >100 /HPF (0-5)
[2024-08-09] VITALS (7 sets, daily range): BP systolic 125–146; BP diastolic 71–84; BMI 30.8
[2024-08-09] MEDS: SYNTHROID 200 MCG PO (05:16)
[2024-08-09] MEDS: ULTRAM 50 MG PO (05:41)
[2024-08-09 07:51] LABS: INR 1.27; PT 16.2 Sec (11.4-14.6)
[2024-08-09] MEDS: LIDOCAINE 4% PATCH 1 PATCH TOPICAL ×2 (08:46)
[2024-08-09] MEDS: PROTONIX 40 MG PO (08:46)
[2024-08-09] MEDS: HEPARIN 5000 UNITS SC ×3 (08:52→23:21)
--- NOTE | 2024-08-09 08:56 | W.PN.URO.CBU ---
Today's Communication / Plan
-
- Percutaneous nephrostomy tube when feasible
- Agree with course of empiric antibiotics pending urine culture
- Indwelling ureteral stent will eventually need to be removed, however this may be helpful during surgery to locate the ureter - will leave stent removal timing up to the operating surgical team
Assessment / Plan
-
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
Admitted for altered mental status, gait dysfunction, hypercalcemia
Recurrence of L flank pain and L hydronephrosis after stent placement mid May 2024
- Persistent/recurrent obstruction and L hydronephrosis suggests failure of indweling ureteral stent
- Stable renal function since prior to initial stent placement - unknown if L ureter obstruction contributes or if this is nonobstructive CKD
- Discussed with patient options of replacing the ureteral stent vs nephrostomy tube placement. Given stent was placed nearly 3 months ago, stent exchange could resume drainage of the kidney. However, given possible progression of tumor and unclear
timing of pending intervention, nephrostomy tube would be a more definitive drainage of the L kidney and avoid additional problems that could further delay treatment.
- Patient agreed to proceed with L nephrostomy tube placement
- Consult placed to IR
- Procedure delayed due to single dose of Plavix started yesterday
- Pain currently controlled enough that she could be discharged and have the nephrostomy tube placed next week outpatient - asked IR if this can be coordinated
- Agree with course of empiric antibiotics pending urine culture
- Indwelling ureteral stent will eventually need to be removed, however this may be helpful during surgery to locate the ureter - will leave stent removal timing up to the operating surgical team
Diagnosis
-
Date of Service: August 09, 2024
-
Patient Diagnosis:
Malignant L ureteral obstruction
Flank pain
Post Op Day:
Subjective
-
Pain improved overnight and this AM
Objective
-
Vital Signs
Temp Pulse Resp BP Pulse Ox
98.0 F 85 18 125/80 97
08/09/24 07:25 08/09/24 07:25 08/09/24 07:25 08/09/24 07:25 08/09/24 07:25
Intake and Output
08/08/24 08/09/24 08/10/24
06:59 06:59 06:59
Intake Total 240 / 240
Output Total 250 / 250
Balance -10 / -10
Intake:
Oral fluids 240 / 240
Output:
Urine, Voided 250 / 250
Other:
Number of approximated SMALL 3
amounts of urine
Number of approximated MODERATE 2 1
amounts of urine
How many times incontinent 1
SMALL amount urine
Laboratory Results
08/07/24 04:44
08/08/24 07:58
Physical Exam
-
General - well developed, well nourished, no acute distress
Chest - clear bilaterally
Abdomen - soft, non-tender
[2024-08-09] MEDS: STERILE WATER FOR INJECTION 10 ML IV (09:12)
[2024-08-09] MEDS: ROCEPHIN 1000 MG IV (09:12)
[2024-08-09 12:11] LABS: Hematocrit 33.0 % (37.0-47.0); Hemoglobin 11.0 g/dL (12.0-16.0); Mean Corp Hgb Conc. 33.3 g/dL (33.0-37.0); Mean Corpuscular Volume 93.0 fL (81.0-99.0); Platelet Count 178 10^3/uL (130-400); Red Cell Dist. Width 14.8 % (11.5-14.5)
[2024-08-09 12:31] LABS: Blood Urea Nitrogen 17 mg/dl (7-17); Calcium 10.7 mg/dl (8.4-10.2); Carbon Dioxide 21 mmol/L (22-30); Chloride 104 mmol/L (98-107); Estimated Creatinine Clearance 33 ml/min; Glucose 113 mg/dl (70-99); Potassium 3.7 mmol/L (3.5-5.1); Sodium 131 mmol/L (135-145); eGFR 35.23
--- NOTE | 2024-08-09 13:10 | W.PN.ONC ---
Documented by User: Gypsy Liao DO, Resident 08/09/24 13:17
Today's Communication / Plan
-
- Patient is planned to follow up with Dr. Teixeira and [facility] regarding plan for surgery and management of spindle cell.
Impression
Impression
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
[facility] ED with weakness and slurred speech.
Hypercalcemia
- Patient's repeat calcium yesterday was 10.8 after receiving pamidronate
- Possible cause of weakness leading to admission
Spindle Cell Neoplasm of Smooth Muscle
- Records reviewed from [facility]
- Patient to continue follow up with Dr. Teixeira after discharge
Weakness and slurred speech
- Brain MRI does not show any evidence of disease or have abnormal findings, per neuro consult exam consistent with R yeison stroke
H/O of thyroid cancer s/p resection
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
Plan
Plan
- Continue to monitor calcium
- Patient will follow up with Dr. Teixeira and [facility] regarding plan for surgery
Subjective/Objective
Subjective/Objective
Patient was seen this morning at the bedside with her son present. Patient is feeling well this morning, stating that her left flank pain is improved at rest, but is extreme when walking around. Patient reports better appetite today. Patient denies
SOB, chest pain, N/V, changes in bowel movements from baseline, or dysuria.
Vital Signs:
Vital Signs
Temp Pulse Resp BP Pulse Ox
97.3 F 94 18 146/74 94
08/09/24 11:38 08/09/24 11:38 08/09/24 11:38 08/09/24 11:38 08/09/24 11:38
Lab Results:
Laboratory Data
WBC 10.4 10^3/uL (4.8-10.8) 08/09/24 11:55
Hgb 11.0 g/dL (12.0-16.0) L 08/09/24 11:55
Plt Count 178 10^3/uL (130-400) 08/09/24 11:55
PT 16.2 Sec (11.4-14.6) H 08/09/24 07:32
INR 1.27 08/09/24 07:32
APTT 30.8 Sec (23.4-35.0) 08/07/24 00:59
eGFR 35.23 08/09/24 11:55

Documented by User: Enmanuel Ng MD 08/09/24 13:58
Plan
Plan
- Continue to monitor calcium
- Patient will follow up with Dr. Teixeira and [facility] regarding plan for surgery
Oncology Addendum:
Patient seen and evaluated and agree w/resident note and plan as outlined
-calcium improved s/p pamidronate
-f/u w/ Dr. Teixeira at [facility] for consideration of surgery
--- NOTE | 2024-08-09 14:46 | W.PN.HOSP.TC ---
Addendum entered and electronically signed by Ascencion August MD 08/16/24 17:40:
.
Addendum entered and electronically signed by Ascencion August MD 08/16/24 17:39:
Correction Continue Lopressor should read as discontinue lopressor
Addendum entered and electronically signed by Ascencion August MD 08/10/24 09:18:
Moderate protein calorie malnutrition
Original Note:
Today's Communication/Plan
-
Await physiatry consult
Case management to place patient in acute rehab
Okay from my standpoint
Patient will need to come back from rehab to get nephrostomy tube once aspirin and Plavix are held for 5 days
Assessment / Plan
Assessment / Plan
78 y/o Weakness, Slurred Speech
Head CT-no acute changes. Dilatation of the ventricular system may be related to cerebral atrophy. Lateral ventricles are slightly more dilated than the third and fourth ventricles, and hydrocephalus should be considered in the setting of balance
problems.
MRI of the brain-no acute changes. Mild atrophy with slightly of mild chronic small less than ischemic disease
EKG-sinus bradycardia right bundle branch block
CUS- No significant carotid plaque is identified bilaterally. Carotid velocity measurements bilaterally are consistent with 0-49% internal carotid artery stenosis.
Patient is awake and alert oriented
Speech is thick but no slurring noted
Cardiovascular system S1-S2 appreciated
Chest clear to auscultation
Abdomen slightly distended, bowel sounds present
Neuroexam good strength bilateral upper extremities extremities
# Dysarthria/ataxia
Unclear if secondary to hypercalcemia versus CVA
Aspirin, Plavix added for stroke per neurology, Hels since 08/09/24 for nephrostomy tube
Neurology evaluation appreciated
MRI-no acute changes but neurology feels that there might be right pontine stroke
PT OT and speech eval appreciated
Normal video swallow exam
Acute rehab recommended by PT
Carotid ultrasound neg
Awaiting Consult from Dr. Prabhakar
# Left flank pain
Patient has a renal stent
Likely has an obstructed stent
Pain controlled with Tylenol, tramadol and lidocaine patch per patient preference
IR consulted for nephrostomy tube. On hold since patient got aspirin and Plavix. Has to be 5 days from the last dose. Which will be 08/13/2024 at the earliest.
# Hypercalcemia
Unclear reasons,
Malignancy related?
Status post pamidronate
PTH level less than 3.4 therefore this is a secondary process causing hypercalcemia possibly malignancy?
PTH related peptide-pending
Low vitamin D levels noted, replace once calcium has normalized
Stop IV fluids
Hematology oncology evaluation following
# Hyponatremia- Improving
Stop HCTZ. Do not resume
# Hypertension-continue Lopressor. Hold triamterene hydrochlorothiazide
# Troponin elevation-nonischemic myocardial injury likely. Patient denies any chest pain or shortness of breath.
# Hypokalemia-Replaced. Normal Mag
# Hypothyroidism-continue levothyroxine. History of thyroid surgery for thyroid cancer with history of radioablation-currently on levothyroxine 200 mcg daily
# CKD stage III-known left ureteral stent secondary to retroperitoneal masses
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 Plan is for surgical procedure
at [place] in the near future. Patient sees Dr. Shawn Gray
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
History of BETINA and BSO at [facility] in 2016 for spindle cell lesion
# Depression-Continue Lexapro
# Right bundle branch block
# GERD-History of Hiatal Hernia Repair with mesh and posterior partial fundoplication by Dr. Franco 2018-continue PPI
# Vitamin D deficiency-start replacement once calcium has normalized
# Chronic back pain with herniated disks
# IBS-on fiber, Bentyl, Imodium and Questran as outpatient
# DVT prophylaxis-subcutaneous heparin
# Full code
Outside records from [place] noted.
Discussed with son at bedside
Discussed with nursing
Discussed with IR and urology
Discussed with hematology oncology
Part of this note was created using voice recognition system. Occasional wrong word or��sound alike� substitutions may have inadvertently occurred due to the inherent limitations of voice recognition software. If noted kindly bring it to my
attention for correction.
Anticipated Discharge: Within 24 hours
Subjective/Interval History
-
Date of Service: August 09, 2024
Objective Data
-
Labs:
Laboratory Results
08/09/24 08/09/24
07:32 11:55
WBC 10.4
Hgb 11.0 L
Hct 33.0 L
Plt Count 178
PT 16.2 H
INR 1.27
Sodium 131 L
Potassium 3.7
Chloride 104
Carbon Dioxide 21 L
BUN 17
Creatinine 1.5 H
Glucose 113 H
Calcium 10.7 H
Vital Signs:
Vital Signs
Temp Pulse Resp BP Pulse Ox
97.3 F 94 18 146/74 94
08/09/24 11:38 08/09/24 11:38 08/09/24 11:38 08/09/24 11:38 08/09/24 11:38
I&O
08/08/24 08/09/24 08/10/24
06:59 06:59 06:59
Intake Total 240 / 240
Output Total 250 / 250
Balance -10 / -10
--- NOTE | 2024-08-09 16:33 | CON.MD ---
Consultation - Medical
-
Chief Complaint:�Stroke
�
History of Present Illness:�78-year-old right-handed female with PMH (as below) presented to [facility] on 08/06/2024 with weakness and slurred speech. Noted with poor appetite and poor p.o. intake recently with significant functional
decline including weakness and unsteady gait requiring use of a cane. Also noted by family to have slurred speech and intermittent confusion which has progressed over a week. Found to have hypercalcemia, received pamidronate and IV fluid. MRI of
the brain without acute concern. Seen by neurology and thought to have a clinical right pontine stroke with subtle right facial droop and left-sided weakness and numbness likely too small to show on MRI. Confusion and fatigue thought to be
secondary to hypercalcemia. Seen by urology with plan for percutaneous nephrostomy tube when feasible and course of empiric antibiotics pending urine culture. Ultimate plan to remove the ureteral stent. Procedure held up with dose of Plavix given
yesterday.
�
Past Medical History:�HTN, IBS, spindle cell cancer/leiomyomatosis, thyroid cancer status postresection and XRT, SVT, GERD, anxiety
Procedure History:�BETINA/BSO, retroperitoneal biopsy, left ureteral stent, appendectomy, thyroidectomy, cholecystectomy, bilateral TKA, paraesophageal hernia repair/fundoplication
Family History:�None pertinent
�
Social History:�
Functional Level Premorbidly:�Independent with all activities�up until just recently when required cane for ambulation.
Functional Level Currently:�Min assist for bed mobility, transfers, ambulating 10 feet. Ambulation limited by tachycardia. Min assist ADLs.
�
Tobacco:�Denies�
Alcohol:�Denies�
Drug use:�Denies�
�
Lives with:�Spouse
24-hour assistance available:�Yes
Number of floors:�2
# steps to enter:�2
# steps to second floor: Has stair glide to the second floor
Potential First floor set up:�Yes
Driving:�Yes
Occupation:�Retired
�
�
Allergies:�
Allergy/AdvReac Type Severity Reaction Status Date / Time
codeine (Codeine) Allergy vomiting Verified 08/06/24 21:40
erythromycin base Allergy vomiting Verified 08/06/24 21:40
(Erythromycin Base)
hydrocodone (Hydrocodone) Allergy swelling, Verified 08/06/24 21:40
vomiting
Iodinated Contrast Media (IV Allergy Swelling Verified 08/06/24 21:40
Dye, Iodine Containing
Contrast )
NSAIDS (Non-Steroidal Allergy INTERNAL Verified 08/06/24 21:40
Anti-Inflamma BLEEDING,
ANEMIA
oxycodone Allergy Vomiting Verified 08/06/24 21:40
�
Review of Systems:�
Constitutional: (x) abNormal _fatigue
Eye: (x) Normal _
Ear/Nose/Throat: (x) Normal _
Respiratory: (x) Normal _
Cardiovascular: (x) Normal _
Gastrointestinal: (x) Normal _
Genitourinary: (x) abNormal _needs to have a nephrostomy tube tube
Musculoskeletal: (x) abNormal _generalized weakness, shaking movements in the wound. Better from last week
Integumentary: (x) Normal _
Neurologic: (x) Normal _denies numbness or tingling
Psychiatric: (x) Normal _
Endocrine: (x) Normal _
Hematologic/Lymphatic: (x) Normal _
Allergic/Immunologic: (x) Normal _
�
Medications:�
Active Current Visit Medication List
Category Date Time Status
Acetaminophen [Tylenol] Med 08/08/24 12:51 Active
650 mg PO Q4HPRN PRN
Aspirin Chewable [Low Strength Aspirin] Med 08/07/24 08:00 Hold
81 mg PO DAILY
Atorvastatin [Lipitor] Med 08/07/24 19:00 Active
40 mg PO QPM
CefTRIAXone [Rocephin] Med 08/09/24 10:00 Active
1,000 mg IV Q24H
Clopidogrel Bisulfate [Plavix] Med 08/08/24 08:00 Hold
75 mg PO DAILY
Escitalopram Oxalate [Lexapro] Med 08/07/24 18:00 Active
20 mg PO QPM
Flush (0.9% Sodium Chloride) [Flush (Nss)] Med 08/07/24 03:00 Active
See Dose Instructions IV PER PROTOCOL
Heparin Med 08/07/24 16:00 Active
5,000 units SC Q8
Levothyroxine [Synthroid] Med 08/07/24 06:00 Active
200 mcg PO DAILY @ 0600
Lidocaine [Lidocaine 4% Patch] Med 08/08/24 08:45 Active
1 patch TOPICAL DAILY
Lidocaine [Lidocaine 4% Patch] Med 08/08/24 13:00 Active
1 patch TOPICAL DAILY
Pantoprazole [Protonix] Med 08/07/24 08:00 Active
40 mg PO DAILY
Remove Patch [Remove Lidocaine Patch] Med 08/08/24 20:00 Active
See Dose Instructions REMOVE DAILY@2000
Sterile Water [Sterile Water For Injection] Med 08/09/24 10:00 Active
10 ml IV Q24H
Tramadol HCl [Ultram] Med 08/08/24 12:50 Active
50 mg PO Q6HPRN PRN
�
Vitals:�
Temp Pulse Resp BP Pulse Ox
98.2 F 110 18 134/84 97
08/09/24 15:27 08/09/24 15:27 08/09/24 15:27 08/09/24 15:27 08/09/24 15:27
Height 5 ft 5 in
Actual Weight 83.869 kg
Body Mass Index (BMI) 30.8
�
Physical Exam:�
General Appearance/Observation: Well-developed, well-nourished female in no apparent distress.�
Pain/Comfort Assessment: Denies�
Mood/Affect: Appropriate, appears fatigued
�
Integumentary/Operative Site:�No lesions noted during course of exam
Eyes: Conjunctiva/Lids: normal��� Pupils: pupils equal round and reactive to light
Ears/Nose/Throat: oral mucosa moist, throat clear.������������ Lips/Teeth/Gums: normal
Cardiovascular: Heart: Mild tachycardia, no murmur�
Pulses: dorsalis pedis 2+ bilaterally�
Respiratory: Respiratory Effort/Chest Expansion: normal������ Auscultation: Clear to auscultation bilaterally
Gastrointestinal: abdomen not tender, no distension, normal abdominal bowel sounds
Genitourinary: No Ramirez�
Rectal Exam: Deferred�
Extremities:�Edema: None�Cyanosis: None�Trophic�changes: None
�
Neurology Exam:
Orientation: Alert, Oriented to self, Time, Place�
Memory: Intact for recent medical concerns
Comprehension: Intact
Two step command: Intact
Cranial Nerves:
�� CNII:�Pupillary light reflex: Intact���Visual Field: Intact
�� CN III, IV, : Extraocular muscles: Intact�
�� CN V:�Facial Sensation�at�Forehead: Intact,�Maxilla: Intact,�Mandible: Intact
�� CN VII:�Facial movement: Symmetric
�� CN VIII:�Hearing: Normal
�� CN IX/X:�Speech & swallow: Normal,�Position of Uvula: Midline
�� CN XI:�Shoulder shrug: Symmetric
�� CN XII:�Tongue protrusion: Midline
Sensory:
�� Light touch: Intact in bilateral upper and lower extremities
�
Reflexes:
�� Biceps: 2+ bilaterally
�� Brachioradialis: 2+ bilaterally
�� Triceps: 2+ bilaterally
�� Patellar: 0 bilaterally
�� Achilles: 0 bilaterally
�� Babinski: Down going bilaterally
�� Clonus: None
�� Pauline: Negative bilaterally�
Cerebellar: Dysmetria/Ataxia: Has tremor both hands, no dysmetria
Musculoskeletal: Motor: (Manual muscle scale 0-5)�
Muscle SA EF WE EE FF FA HF KE DF EHL PF
Right� 5 5 5 5 5 4 5 5 5 5
Left 5 5 5 5 5 4 5 5 5 5
�
Tone: Normal in all extremities�
Range of Motion: Passively within normal limits in all extremities�
�
Lab Results
Laboratory Data
08/09/24 11:55
08/09/24 11:55
PT 16.2 Sec (11.4-14.6) H 08/09/24 07:32
INR 1.27 08/09/24 07:32
APTT 30.8 Sec (23.4-35.0) 08/07/24 00:59
Total Bilirubin 0.8 mg/dl (0.2-1.3) 08/07/24 01:43
Direct Bilirubin 0.6 mg/dl (0.0-0.4) H 08/07/24 01:43
AST 22 U/L (14-36) 08/07/24 01:43
ALT < 10 U/L (0-35) 08/07/24 01:43
Alkaline Phosphatase 66 U/L (38-126) 08/07/24 01:43
Total Protein 6.4 g/dl (6.3-8.2) 08/07/24 01:43
Albumin 3.9 g/dl (3.5-5.0) 08/07/24 01:43
�
Diagnostic Results:�as per HPI�
�
Assessment
78-year-old R-handed F PMH (HTN, IBS, spindle cell cancer/leiomyomatosis, thyroid cancer status postresection and XRT, SVT, GERD, anxiety) with 08/06/2024 with weakness, slurred speech and poor oral intake secondary to hypercalcemia versus clinical
right pontine stroke with subtle right facial droop and left-sided weakness and numbness likely too small to show on MRI. Confusion and fatigue thought to be secondary to hypercalcemia patient has ADL and ambulatory dysfunction. Will need
nephrostomy tube when Plavix washout is complete.
�
Plan�
PM&R�PT/OT to increase independence with ADLs, improve balance, coordination, endurance, strength, mobility, community reintegration, decreased burden of care on others and family education.�
Weakness, dysarthria, fatigue: Hypercalcemia versus CVA: Secondary prophylaxis with aspirin and Plavix for 21 days with aspirin lifelong, statin, and blood pressure control (SBP less than 180 and diastolic less than 100 to participate with therapy
for ischemic stroke). Continue to monitor neurologic status.�
Hypercalcemia: Status post IV fluid and pamidronate. Overall patient feeling much better today from the end of last week when she arrived. Still not at her baseline. Possible from malignancy.
HTN: Lopressor, hydrochlorothiazide stopped with hyponatremia. Monitor closely�
Hypothyroidism: levothyroxine�
Persistent/recurrent ureteral obstruction with left hydronephrosis from compression of mass: Plan for left nephrostomy tube by IR per nephrology. On antibiotics
Normocytic anemia: Likely multifactorial.� Stable in the 11 range, monitor.�
Psych: Psychology consult.� Monitor mood, medications as needed.�
Skin: monitor for pressure sores/rashes/lesions.�
Pain: acetaminophen as needed.�
Bowel: Colace and Senna, PRN bisacodyl.�
Bladder: Time void, PVRs, PRN straight cath.�
GI Prophylaxis: Pantoprazole�
Depression: Lexapro 20 mg daily
DVT Prophylaxis: Mechanical and heparin
Pulmonary: Incentive spirometry�
Obesity: Continue to certified substance abuse counselor patient about diet adjustments to control obesity. Body habitus and increased force to move body and extremities causes further difficulty with functional tasks.�
Safety: Continue to reinforce assistance with all transfers.�
Code Status:� Full code
Dispo�(date/plan/equipment needs): Home with family care.� Social history reviewed.�
Functional and Medical Goals:�Modified Independent with ADL�s, ambulation, transfers�
Discharge Destination:�Reviewed with patient. She does not feel she will tolerate 3 hours of therapy a day so [facility] facility is recommended.
A total of 60 minutes were spent with the patient preparing for the evaluation, obtaining history, performing examination and evaluation, counseling, data review, case management, care coordination, order puller, and EMR documentation. Called son
Kevan per patient request but no answer.
�
Thank you for allowing me to care for your patient. Please contact me with any questions or concerns.
Consultation
-
Date/Time Consultation Performed: 08/09/2024
Requesting Provider: Dr. Ascencion August
Performing Provider: Dr. Santos Prabhakar
Reason for Consultation: Stroke
--- NOTE | 2024-08-09 16:37 | CM ---
PT evals = Acute rehab VS SNF.
PT will need wash out and on 08/14/24 will need Nephrostomy tube placed.
Reggie spoke with [facility]. [facility] accept only after nephrostomy tube placed .
Spoke with son Reggie at bedside he requested SNF referral placed for [facility]
Assess SNF response in care port.
PLAN Locate SNF
[2024-08-09] MEDS: LIPITOR 40 MG PO (17:13)
[2024-08-09] MEDS: LEXAPRO 20 MG PO (17:13)
[2024-08-09] MEDS: REMOVE LIDOCAINE PATCH 1 PATCH REMOVE (19:57)
[2024-08-10] VITALS (8 sets, daily range): BP systolic 107–142; BP diastolic 6–82; PULSE 88–157; O2SAT 95; BMI 30.9
[2024-08-10] MEDS: SYNTHROID 200 MCG PO (05:24)
[2024-08-10] MEDS: HEPARIN 5000 UNITS SC ×3 (07:47→23:48)
[2024-08-10] MEDS: LIDOCAINE 4% PATCH 1 PATCH TOPICAL ×2 (07:48)
[2024-08-10] MEDS: PROTONIX 40 MG PO (07:48)
[2024-08-10] MEDS: ROCEPHIN 1000 MG IV (09:29)
[2024-08-10] MEDS: STERILE WATER FOR INJECTION 10 ML IV (09:30)
--- NOTE | 2024-08-10 09:42 | W.PN.ONC ---
Today's Communication / Plan
-
- Continue to monitor calcium, improved with pamidronate
- Patient will follow up with Dr. Teixeira and [facility] regarding plan for surgery
Impression
Impression
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
[place] ED with weakness and slurred speech.
Hypercalcemia
- Patient's repeat calcium yesterday was 10.7 after receiving pamidronate
- Possible cause of weakness leading to admission
Spindle Cell Neoplasm of Smooth Muscle
- Records reviewed from [facility]
- Patient to continue follow up with Dr. Teixeira after discharge
Weakness and slurred speech
- Brain MRI does not show any evidence of disease or have abnormal findings, per neuro consult exam consistent with R yeison stroke
H/O of thyroid cancer s/p resection
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
Plan
Plan
- Continue to monitor calcium, improved with pamidronate
- Patient will follow up with Dr. Teixeira and [facility] regarding plan for surgery
Subjective/Objective
Subjective/Objective
Patient seen today lying in bed with son at the bedside. Patient appears to be clearer in thought and conversation today. Patient is doing well, but still experiencing L flank pain. Patient rated her current pain a 1/10 but said its worse when she
moves. Patient is feeling a little forgetful. Patient denies all ROS. Patient notes improved appetite.
Physical exam:
General: AAOx3 no acute distress
Cardiovascular: RRR
Respiratory: normal breath sounds b/l
Abdomen: distended, nontender
Extremities: no edema
Vital Signs:
Vital Signs
Temp Pulse Resp BP Pulse Ox
97.7 F 99 18 122/80 96
08/10/24 07:15 08/10/24 07:15 08/10/24 07:15 08/10/24 07:15 08/10/24 07:15
Lab Results:
Laboratory Data
WBC 10.4 10^3/uL (4.8-10.8) 08/09/24 11:55
Hgb 11.0 g/dL (12.0-16.0) L 08/09/24 11:55
Plt Count 178 10^3/uL (130-400) 08/09/24 11:55
PT 16.2 Sec (11.4-14.6) H 08/09/24 07:32
INR 1.27 08/09/24 07:32
APTT 30.8 Sec (23.4-35.0) 08/07/24 00:59
eGFR 35.23 08/09/24 11:55
[2024-08-10 10:22] LABS: Blood Urea Nitrogen 19 mg/dl (7-17); Calcium 10.6 mg/dl (8.4-10.2); Carbon Dioxide 24 mmol/L (22-30); Chloride 102 mmol/L (98-107); Estimated Creatinine Clearance 33 ml/min; Glucose 113 mg/dl (70-99); Potassium 3.7 mmol/L (3.5-5.1); Sodium 131 mmol/L (135-145); eGFR 35.23
--- NOTE | 2024-08-10 14:53 | W.PN.HOSP.TC ---
Today's Communication/Plan
-
Discharge planning
Assessment / Plan
Assessment / Plan
78 y/o Weakness, Slurred Speech
Head CT-no acute changes. Dilatation of the ventricular system may be related to cerebral atrophy. Lateral ventricles are slightly more dilated than the third and fourth ventricles, and hydrocephalus should be considered in the setting of balance
problems.
MRI of the brain-no acute changes. Mild atrophy with slightly of mild chronic small less than ischemic disease
EKG-sinus bradycardia right bundle branch block
CUS- No significant carotid plaque is identified bilaterally. Carotid velocity measurements bilaterally are consistent with 0-49% internal carotid artery stenosis.
Patient is awake and alert oriented
Speech is thick but no slurring noted
Cardiovascular system S1-S2 appreciated
Chest clear to auscultation
Abdomen slightly distended, bowel sounds present
Neuroexam good strength bilateral upper extremities extremities
# Dysarthria/ataxia
Unclear if secondary to hypercalcemia versus CVA
Aspirin, Plavix added for stroke per neurology, Held since 08/09/24 for nephrostomy tube
Neurology evaluation appreciated
MRI-no acute changes but neurology feels that there might be right pontine stroke
PT OT and speech eval appreciated
Normal video swallow exam
Acute rehab recommended by PT
Carotid ultrasound neg
Physiatry evaluation noted recommending SNF
Referrals placed per case management
# Left flank pain
Patient has a renal stent
Likely has an obstructed stent
Pain controlled with Tylenol, tramadol and lidocaine patch per patient preference
IR consulted for nephrostomy tube. On hold since patient got aspirin and Plavix. Has to be 5 days from the last dose. Which will be 08/14/2024 at the earliest.
# Hypercalcemia
Unclear reasons,
Malignancy related?
Status post pamidronate
PTH level less than 3.4 therefore this is a secondary process causing hypercalcemia possibly malignancy?
PTH related peptide-pending
Low vitamin D levels noted, replace once calcium has normalized
Hematology oncology following
# Hyponatremia- Improving
Stop HCTZ. Do not resume
# Hypertension-continue Lopressor. Hold triamterene hydrochlorothiazide
# Troponin elevation-nonischemic myocardial injury likely. Patient denies any chest pain or shortness of breath.
# Hypokalemia-Replaced. Normal Mag
# Hypothyroidism-continue levothyroxine. History of thyroid surgery for thyroid cancer with history of radioablation-currently on levothyroxine 200 mcg daily
# CKD stage III-known left ureteral stent secondary to retroperitoneal masses
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 Plan is for surgical procedure
at [facility] in the near future. Patient sees Dr. Shawn Gray
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
History of BETINA and BSO at [facility] in 2016 for spindle cell lesion
# Depression-Continue Lexapro
# Right bundle branch block
# GERD-History of Hiatal Hernia Repair with mesh and posterior partial fundoplication by Dr. Franco 2018-continue PPI
# Vitamin D deficiency-start replacement once calcium has normalized
# Chronic back pain with herniated disks
# IBS-on fiber, Bentyl, Imodium and Questran as outpatient. Currently constipated. Add MiraLAX
# DVT prophylaxis-subcutaneous heparin
# Full code
Outside records from [facility] noted.
Discussed with son at bedside
Discussed with nursing
Discussed with case management
Part of this note was created using voice recognition system. Occasional wrong word or��sound alike� substitutions may have inadvertently occurred due to the inherent limitations of voice recognition software. If noted kindly bring it to my
attention for correction.
Anticipated Discharge: Within 24 hours
Subjective/Interval History
-
Date of Service: August 10, 2024
Objective Data
-
Labs:
Laboratory Results
08/10/24
09:33
Sodium 131 L
Potassium 3.7
Chloride 102
Carbon Dioxide 24
BUN 19 H
Creatinine 1.5 H
Glucose 113 H
Calcium 10.6 H
Vital Signs:
Vital Signs
Temp Pulse Resp BP Pulse Ox
98.2 F 95 18 126/69 95
08/10/24 11:00 08/10/24 11:00 08/10/24 11:00 08/10/24 11:00 08/10/24 11:00
I&O
08/09/24 08/10/24 08/11/24
06:59 06:59 06:59
Intake Total 240 / 240 480 / 480
Output Total 250 / 250
Balance -10 / -10 480 / 480
--- NOTE | 2024-08-10 15:34 | W.PN.URO.CBU ---
Today's Communication / Plan
-
L nephrostomy placement when able
Assessment / Plan
-
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
Admitted for altered mental status, gait dysfunction, hypercalcemia
Recurrence of L flank pain and L hydronephrosis after stent placement mid May 2024
- Persistent/recurrent obstruction and L hydronephrosis suggests failure of indweling ureteral stent
- Stable renal function since prior to initial stent placement - unknown if L ureter obstruction contributes or if this is nonobstructive CKD
- Discussed with patient options of replacing the ureteral stent vs nephrostomy tube placement. Given stent was placed nearly 3 months ago, stent exchange could resume drainage of the kidney. However, given possible progression of tumor and unclear
timing of pending intervention, nephrostomy tube would be a more definitive drainage of the L kidney and avoid additional problems that could further delay treatment.
- Patient agreed to proceed with L nephrostomy tube placement
- Consult placed to IR
- Procedure delayed due to single dose of Plavix started yesterday
- Pain currently controlled enough that she could be discharged and have the nephrostomy tube placed next week outpatient - this was scheduled by IR
- Agree with course of empiric antibiotics pending urine culture
- Indwelling ureteral stent will eventually need to be removed, however this may be helpful during surgery to locate the ureter - will leave stent removal timing up to the operating surgical team
Diagnosis
-
Date of Service: August 10, 2024
-
Patient Diagnosis:
Post Op Day:
Patient Diagnosis:
Malignant L ureteral obstruction
Flank pain
Post Op Day:
Subjective
-
no new sx or events
Objective
-
Vital Signs
Temp Pulse Resp BP Pulse Ox
98.2 F 95 18 126/69 95
08/10/24 11:00 08/10/24 11:00 08/10/24 11:00 08/10/24 11:00 08/10/24 11:00
Intake and Output
08/09/24 08/10/24 08/11/24
06:59 06:59 06:59
Intake Total 240 / 240 480 / 480
Output Total 250 / 250
Balance -10 / -10 480 / 480
Intake:
Oral fluids 240 / 240 480 / 480
Output:
Urine, Voided 250 / 250
Other:
Number of approximated MODERATE 1 2
amounts of urine
Number of unmeasured liquid
stools
Rectum 3
Laboratory Results
08/09/24 11:55
08/10/24 09:33
Physical Exam
-
General - well developed, well nourished, no acute distress
Chest - clear bilaterally
Abdomen - soft, non-tender
--- NOTE | 2024-08-10 16:34 | CM ---
Pt needs wash out for Nephrostomy tube on Wednesday08/14/24.
SNF referral placed. called all 5 SNF to see about accepted.
ALL SNF said will not accept till after nephrostomy tube placed .
spoke with [facility] rep she said can not accept till tube placed.
PLAN :After Nephrostomy tube placed assess if [facility] or SNF can accept her .
[2024-08-10] MEDS: LEXAPRO 20 MG PO (17:12)
[2024-08-10] MEDS: LIPITOR 40 MG PO (17:12)
[2024-08-10] MEDS: REMOVE LIDOCAINE PATCH 1 PATCH REMOVE (19:44)
[2024-08-10] MEDS: TYLENOL 650 MG PO (23:52)
[2024-08-11] VITALS (7 sets, daily range): BP systolic 107–142; BP diastolic 59–74; PULSE 93–136; O2SAT 98; BMI 31.0
[2024-08-11] MEDS: SYNTHROID 200 MCG PO (05:20)
[2024-08-11 08:44] LABS: Blood Urea Nitrogen 17 mg/dl (7-17); Calcium 10.3 mg/dl (8.4-10.2); Carbon Dioxide 22 mmol/L (22-30); Chloride 103 mmol/L (98-107); Estimated Creatinine Clearance 35 ml/min; Glucose 100 mg/dl (70-99); Potassium 3.4 mmol/L (3.5-5.1); Sodium 131 mmol/L (135-145); eGFR 38.27
[2024-08-11] MEDS: HEPARIN 5000 UNITS SC ×3 (09:27→23:00)
[2024-08-11] MEDS: PROTONIX 40 MG PO (09:27)
[2024-08-11] MEDS: LIDOCAINE 4% PATCH 1 PATCH TOPICAL ×2 (09:32→09:35)
[2024-08-11] MEDS: LIDOCAINE 4% PATCH TOPICAL (09:34)
[2024-08-11] MEDS: ROCEPHIN 1000 MG IV (10:50)
[2024-08-11] MEDS: STERILE WATER FOR INJECTION 10 ML IV (10:50)
--- NOTE | 2024-08-11 11:10 | W.PN.URO.CBU ---
Today's Communication / Plan
-
plan per hospitalist
Assessment / Plan
-
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
Admitted for altered mental status, gait dysfunction, hypercalcemia
Recurrence of L flank pain and L hydronephrosis after stent placement mid May 2024
- Persistent/recurrent obstruction and L hydronephrosis suggests failure of indweling ureteral stent
- Stable renal function since prior to initial stent placement - unknown if L ureter obstruction contributes or if this is nonobstructive CKD
- Discussed with patient options of replacing the ureteral stent vs nephrostomy tube placement. Given stent was placed nearly 3 months ago, stent exchange could resume drainage of the kidney. However, given possible progression of tumor and unclear
timing of pending intervention, nephrostomy tube would be a more definitive drainage of the L kidney and avoid additional problems that could further delay treatment.
- Patient agreed to proceed with L nephrostomy tube placement
- Consult placed to IR
- Procedure delayed due to single dose of Plavix started yesterday
- Pain currently controlled enough that she could be discharged and have the nephrostomy tube placed next week outpatient - this was scheduled by IR
- Agree with course of empiric antibiotics pending urine culture
- Indwelling ureteral stent will eventually need to be removed, however this may be helpful during surgery to locate the ureter - will leave stent removal timing up to the operating surgical team
Diagnosis
-
Date of Service: August 11, 2024
-
Patient Diagnosis:
Post Op Day:
Patient Diagnosis:
Post Op Day:
Patient Diagnosis:
Malignant L ureteral obstruction
Flank pain
Post Op Day:
Subjective
-
getting ready for pelvic surgery but needs perc tube
Objective
-
Vital Signs
Temp Pulse Resp BP Pulse Ox
98.2 F 89 18 142/74 97
08/11/24 11:06 08/11/24 11:06 08/11/24 11:06 08/11/24 11:06 08/11/24 11:06
Intake and Output
08/10/24 08/11/24 08/12/24
06:59 06:59 06:59
Intake Total 480 / 480 480 / 480
Balance 480 / 480 480 / 480
Intake:
Oral fluids 480 / 480 480 / 480
Other:
Number of approximated SMALL 3
amounts of urine
Number of approximated MODERATE 2 1
amounts of urine
How many times incontinent 1
SMALL amount urine
How many times incontinent 1
MODERATE amount urine
Number of unmeasured liquid
stools
Rectum 3
Laboratory Results
08/09/24 11:55
08/11/24 07:47
Review of Systems
-
: Flank Pain and Urgency
Physical Exam
-
General - well developed, well nourished, no acute distress
Chest - clear bilaterally
Abdomen - soft, non-tender, positive bowel sounds, no CVAT, no incisional pain or distention
Genitalia - normal
Rectal - normal
Skin - warm & dry with no rash
Neuro - AOx3, no motor deficits
Extremities - no clubbing, no cyanosis, no edema
Incision - clean, dry
Dressing - clean, dry, intact
Care Review
Data Reviewed
Discussed with: Other (general surgery)
[2024-08-11] MEDS: KCL 20 MEQ PO (12:24)
--- NOTE | 2024-08-11 13:20 | W.PN.HOSP.TC ---
Addendum entered and electronically signed by Ascencion August MD 08/16/24 17:39:
Correction Continue Lopressor should read as discontinue lopressor
Original Note:
Today's Communication/Plan
-
Check serum and urine osmolality
Await nephrostomy tube on Wednesday
Assessment / Plan
Assessment / Plan
78 y/o Weakness, Slurred Speech
Head CT-no acute changes. Dilatation of the ventricular system may be related to cerebral atrophy. Lateral ventricles are slightly more dilated than the third and fourth ventricles, and hydrocephalus should be considered in the setting of balance
problems.
MRI of the brain-no acute changes. Mild atrophy with slightly of mild chronic small less than ischemic disease.
EKG-sinus bradycardia right bundle branch block
CUS- No significant carotid plaque is identified bilaterally. Carotid velocity measurements bilaterally are consistent with 0-49% internal carotid artery stenosis.
Patient is awake and alert oriented
Speech is thick but no slurring noted
Cardiovascular system S1-S2 appreciated
Chest clear to auscultation
Abdomen slightly distended, bowel sounds present
# Dysarthria/ataxia
Unclear if secondary to hypercalcemia versus CVA
Aspirin, Plavix added for stroke per neurology, Held since 08/09/24 for nephrostomy tube
Neurology evaluation appreciated
MRI-no acute changes but neurology feels that there might be right pontine stroke
PT OT and speech eval appreciated
Normal video swallow exam
Acute rehab recommended by PT
Carotid ultrasound neg
Physiatry evaluation noted recommending SNF
Referrals placed per case management
# Left flank pain
Patient has a renal stent
Likely has an obstructed stent
Pain controlled with Tylenol, tramadol and lidocaine patch per patient preference
IR consulted for nephrostomy tube. On hold since patient got aspirin and Plavix. Has to be 5 days from the last dose. Which will be 08/14/2024 at the earliest.
# Hypercalcemia
Unclear reasons,
Malignancy related?
Status post pamidronate
PTH level less than 3.4 therefore this is a secondary process causing hypercalcemia possibly malignancy?
PTH related peptide-pending
Low vitamin D levels noted, replace once calcium has normalized
Hematology oncology following
# Hyponatremia- Improving
Stop HCTZ. Do not resume
# Hypertension-continue Lopressor. Hold triamterene hydrochlorothiazide
# Troponin elevation-nonischemic myocardial injury likely. Patient denies any chest pain or shortness of breath.
# Hypokalemia-Replaced. Normal Mag
# Hypothyroidism-continue levothyroxine. History of thyroid surgery for thyroid cancer with history of radioablation-Currently on Levothyroxine 200 mcg daily
# CKD stage III-known left ureteral stent secondary to retroperitoneal masses
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 Plan is for surgical procedure
at [facility] in the near future. Patient sees Dr. Shawn Gray
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
History of BETINA and BSO at [facility] in 2016 for spindle cell lesion
# Depression-Continue Lexapro
# Right bundle branch block
# GERD-History of Hiatal Hernia Repair with mesh and posterior partial fundoplication by Dr. Franco 2018-continue PPI
# Vitamin D deficiency-start replacement once calcium has normalized
# Chronic back pain with herniated disks
# IBS-on fiber, Bentyl, Imodium and Questran as outpatient. Currently constipated. Add MiraLAX
# DVT prophylaxis-subcutaneous heparin
# Full code
Outside records from [facility] noted.
Discussed with interventional radiology yesterday they will be doing nephrostomy tube on Wednesday
Discussed with nursing
Case management to find a place for patient to be discharged on Wednesday after the nephrostomy tube
Part of this note was created using voice recognition system. Occasional wrong word or��sound alike� substitutions may have inadvertently occurred due to the inherent limitations of voice recognition software. If noted kindly bring it to my
attention for correction.
Anticipated Discharge: > 48 hours
Subjective/Interval History
-
Date of Service: August 11, 2024
Objective Data
-
Labs:
Laboratory Results
08/11/24
07:47
Sodium 131 L
Potassium 3.4 L
Chloride 103
Carbon Dioxide 22
BUN 17
Creatinine 1.4 H
Glucose 100 H
Calcium 10.3 H
Vital Signs:
Vital Signs
Temp Pulse Resp BP Pulse Ox
98.2 F 89 18 142/74 97
08/11/24 11:06 08/11/24 11:06 08/11/24 11:06 08/11/24 11:06 08/11/24 11:06
I&O
08/10/24 08/11/24 08/12/24
06:59 06:59 06:59
Intake Total 480 / 480 480 / 480
Balance 480 / 480 480 / 480
[2024-08-11] MEDS: LIPITOR 40 MG PO (18:06)
[2024-08-11] MEDS: LEXAPRO 20 MG PO (18:06)
[2024-08-11] MEDS: REMOVE LIDOCAINE PATCH 1 PATCH REMOVE (19:47)
[2024-08-11] MEDS: ULTRAM 50 MG PO (19:51)
[2024-08-12] VITALS (7 sets, daily range): BP systolic 114–125; BP diastolic 60–72; PULSE 80; O2SAT 97; BMI 30.5
[2024-08-12] MEDS: SYNTHROID 200 MCG PO (06:28)
--- NOTE | 2024-08-12 08:39 | W.PN.URO.CBU ---
Today's Communication / Plan
-
for left perc tube tomorrowpleaee check if need to be npo etc
Assessment / Plan
-
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
Admitted for altered mental status, gait dysfunction, hypercalcemia
Recurrence of L flank pain and L hydronephrosis after stent placement mid May 2024
- Persistent/recurrent obstruction and L hydronephrosis suggests failure of indweling ureteral stent
- Stable renal function since prior to initial stent placement - unknown if L ureter obstruction contributes or if this is nonobstructive CKD
- Discussed with patient options of replacing the ureteral stent vs nephrostomy tube placement. Given stent was placed nearly 3 months ago, stent exchange could resume drainage of the kidney. However, given possible progression of tumor and unclear
timing of pending intervention, nephrostomy tube would be a more definitive drainage of the L kidney and avoid additional problems that could further delay treatment.
- Patient agreed to proceed with L nephrostomy tube placement
- Consult placed to IR
- Procedure delayed due to single dose of Plavix started yesterday
- Pain currently controlled enough that she could be discharged and have the nephrostomy tube placed next week outpatient - this was scheduled by IR
- Agree with course of empiric antibiotics pending urine culture
- Indwelling ureteral stent will eventually need to be removed, however this may be helpful during surgery to locate the ureter - will leave stent removal timing up to the operating surgical team
Diagnosis
-
Date of Service: August 12, 2024
-
Patient Diagnosis:
Post Op Day:
Patient Diagnosis:
Post Op Day:
Patient Diagnosis:
Post Op Day:
Patient Diagnosis:
Malignant L ureteral obstruction
Flank pain
Post Op Day:
Subjective
-
no complaints awaoitng left perc tube
Objective
-
Vital Signs
Temp Pulse Resp BP Pulse Ox
98.0 F 86 18 117/69 96
08/12/24 07:25 08/12/24 07:25 08/12/24 07:25 08/12/24 07:25 08/12/24 07:25
Intake and Output
08/11/24 08/12/24 08/13/24
06:59 06:59 06:59
Intake Total 480 / 480 480 / 480
Output Total 200 / 200
Balance 480 / 480 280 / 280
Intake:
Oral fluids 480 / 480 480 / 480
Output:
Urine, Voided 200 / 200
Other:
Number of approximated SMALL 3 5
amounts of urine
Number of approximated MODERATE 1 3
amounts of urine
How many times incontinent 1
SMALL amount urine
How many times incontinent 1
MODERATE amount urine
Number of unmeasured liquid
stools
Rectum 3
Laboratory Results
08/09/24 11:55
Physical Exam
-
General - well developed, well nourished, no acute distress
Chest - clear bilaterally
Abdomen - soft, non-tender, positive bowel sounds, no CVAT, no incisional pain or distention
Genitalia - normal
Rectal - normal
Skin - warm & dry with no rash
Neuro - AOx3, no motor deficits
Extremities - no clubbing, no cyanosis, no edema
Incision - clean, dry
Dressing - clean, dry, intact
Care Review
Data Reviewed
CT Scan: Image Pers Reviewed
[2024-08-12] MEDS: LIDOCAINE 4% PATCH 1 PATCH TOPICAL ×2 (09:22→09:23)
[2024-08-12 09:23] LABS: Blood Urea Nitrogen 15 mg/dl (7-17); Calcium 10.0 mg/dl (8.4-10.2); Carbon Dioxide 26 mmol/L (22-30); Chloride 105 mmol/L (98-107); Estimated Creatinine Clearance 35 ml/min; Glucose 96 mg/dl (70-99); Potassium 3.5 mmol/L (3.5-5.1); Sodium 134 mmol/L (135-145); eGFR 38.27
[2024-08-12] MEDS: PROTONIX 40 MG PO (09:25)
[2024-08-12] MEDS: HEPARIN 5000 UNITS SC ×3 (09:25→23:12)
[2024-08-12] MEDS: ROCEPHIN 1000 MG IV (10:32)
[2024-08-12] MEDS: STERILE WATER FOR INJECTION 10 ML IV (10:33)
--- NOTE | 2024-08-12 11:02 | W.PN.HOSP.TC ---
Addendum entered and electronically signed by Ascencion August MD 08/16/24 17:39:
Correction Continue Lopressor should read as discontinue lopressor
Original Note:
Today's Communication/Plan
-
Cardiology evaluation
Waiting for nephrostomy tube on Wednesday
Assessment / Plan
Assessment / Plan
78 y/o Weakness, Slurred Speech
Head CT-no acute changes. Dilatation of the ventricular system may be related to cerebral atrophy. Lateral ventricles are slightly more dilated than the third and fourth ventricles, and hydrocephalus should be considered in the setting of balance
problems.
MRI of the brain-no acute changes. Mild atrophy with slightly of mild chronic small less than ischemic disease.
EKG-sinus bradycardia right bundle branch block
CUS- No significant carotid plaque is identified bilaterally. Carotid velocity measurements bilaterally are consistent with 0-49% internal carotid artery stenosis.
Patient is awake and alert oriented
Speech is thick but no slurring noted
Cardiovascular system S1-S2 appreciated, irregular today
Chest clear to auscultation
Abdomen slightly distended, bowel sounds present
# Irregularity of the heart rhythm. EKG shows sinus rhythm with PACs
Rhythm strip difficult to say PACs versus A-fib
Request cardiology evaluation.
Patient is known to Dr. Martinez
# Dysarthria/ataxia
Unclear if secondary to hypercalcemia versus CVA
Aspirin, Plavix added for stroke per neurology, Held since 08/09/24 for nephrostomy tube
Neurology evaluation appreciated
MRI-no acute changes but neurology feels that there might be right pontine stroke
PT OT and speech eval appreciated
Normal video swallow exam
Acute rehab recommended by PT
Carotid ultrasound neg
Physiatry evaluation noted recommending SNF
Referrals placed per case management
# Left flank pain
Patient has a renal stent
Likely has an obstructed stent
Pain controlled with Tylenol, tramadol and lidocaine patch per patient preference
IR consulted for nephrostomy tube. On hold since patient got aspirin and Plavix. Has to be 5 days from the last dose. Which will be 08/14/2024 at the earliest.
# Hypercalcemia
Unclear reasons,
Malignancy related?
Status post pamidronate
PTH level less than 3.4 therefore this is a secondary process causing hypercalcemia possibly malignancy?
PTH related peptide-pending
Low vitamin D levels noted, replace once calcium has normalized
# Hyponatremia- Improving
Patient admits to drinking a lot of water. Advised to cut back. Sodium is better today.
Stop HCTZ. Do not resume
# Hypertension-continue Lopressor. Hold triamterene hydrochlorothiazide
# Troponin elevation-nonischemic myocardial injury likely. Patient denies any chest pain or shortness of breath.
# Hypokalemia-Replaced. Normal Mag
# Hypothyroidism-continue levothyroxine. History of thyroid surgery for thyroid cancer with history of radioablation-Currently on Levothyroxine 200 mcg daily
# CKD stage III-known left ureteral stent secondary to retroperitoneal masses
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 Plan is for surgical procedure
at [facility] in the near future. Patient sees Dr. Shawn Gray
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
History of BETINA and BSO at [facility] in 2016 for spindle cell lesion
# Depression-Continue Lexapro
# Right bundle branch block
# GERD-History of Hiatal Hernia Repair with mesh and posterior partial fundoplication by Dr. Franco 2018-continue PPI
# Vitamin D deficiency-start replacement once calcium has normalized
# Chronic back pain with herniated disks
# IBS-on fiber, Bentyl, Imodium and Questran as outpatient. Currently constipated. Added MiraLAX
# DVT prophylaxis-subcutaneous heparin
# Full code
Discussed with nursing
Discussed with case management
Case management to find a place for patient to be discharged on Wednesday after the nephrostomy tube
Part of this note was created using voice recognition system. Occasional wrong word or��sound alike� substitutions may have inadvertently occurred due to the inherent limitations of voice recognition software. If noted kindly bring it to my
attention for correction.
Anticipated Discharge: > 48 hours
Subjective/Interval History
-
Date of Service: August 12, 2024
Objective Data
-
Labs:
Laboratory Results
08/12/24
08:34
Sodium 134 L
Potassium 3.5
Chloride 105
Carbon Dioxide 26
BUN 15
Creatinine 1.4 H
Glucose 96
Calcium 10.0
Vital Signs:
Vital Signs
Temp Pulse Resp BP Pulse Ox
98.0 F 86 18 117/69 96
08/12/24 07:25 08/12/24 07:25 08/12/24 07:25 08/12/24 07:25 08/12/24 07:25
I&O
08/11/24 08/12/24 08/13/24
06:59 06:59 06:59
Intake Total 480 / 480 480 / 480
Output Total 200 / 200
Balance 480 / 480 280 / 280
--- NOTE | 2024-08-12 15:08 | CHAP ---
Ms Ann was in good spirits - she shared a lot of her life story, and welcomed prayer. Emotional and spiritual support provided.
--- NOTE | 2024-08-12 15:24 | CM ---
Updated referral placed for all [facility] and [facility] acute rehab . CM will assess which facility can accept Mon after nephrostomy tube placed .
[2024-08-12] MEDS: LIPITOR 40 MG PO (17:45)
[2024-08-12] MEDS: LEXAPRO 20 MG PO (17:45)
[2024-08-12] MEDS: REMOVE LIDOCAINE PATCH 2 PATCH REMOVE (20:52)
[2024-08-12] MEDS: ULTRAM 50 MG PO (21:06)
[2024-08-13 03:00] VITALS: BP 120/58
[2024-08-13 06:00] VITALS: BMI 30.7
[2024-08-13] MEDS: SYNTHROID 200 MCG PO (06:01)
[2024-08-13 07:45] LABS: Blood Urea Nitrogen 12 mg/dl (7-17); Calcium 9.5 mg/dl (8.4-10.2); Carbon Dioxide 26 mmol/L (22-30); Chloride 103 mmol/L (98-107); Estimated Creatinine Clearance 35 ml/min; Glucose 88 mg/dl (70-99); Potassium 3.5 mmol/L (3.5-5.1); Sodium 132 mmol/L (135-145); eGFR 38.27
[2024-08-13 07:55] VITALS: BP 118/63
[2024-08-13] MEDS: HEPARIN 5000 UNITS SC ×3 (09:40→23:38)
[2024-08-13] MEDS: PROTONIX 40 MG PO (09:41)
[2024-08-13] MEDS: LIDOCAINE 4% PATCH 1 PATCH TOPICAL ×2 (09:41→09:42)
[2024-08-13 10:22] LABS: PTH Related Peptide LC-MS/MS 31.4 pmol/L (0.0-3.4)
[2024-08-13 11:19] VITALS: BP 122/63
--- NOTE | 2024-08-13 11:51 | W.PN.HOSP.TC ---
Addendum entered and electronically signed by Ascencion August MD 08/16/24 17:39:
Correction Continue Lopressor should read as discontinue lopressor
Original Note:
Today's Communication/Plan
-
Nephrostomy tube tomorrow
Discharge to rehab tomorrow after that
Assessment / Plan
Assessment / Plan
78 y/o Weakness, Slurred Speech
Head CT-no acute changes. Dilatation of the ventricular system may be related to cerebral atrophy. Lateral ventricles are slightly more dilated than the third and fourth ventricles, and hydrocephalus should be considered in the setting of balance
problems.
MRI of the brain-no acute changes. Mild atrophy with slightly of mild chronic small less than ischemic disease.
EKG-sinus bradycardia right bundle branch block
CUS- No significant carotid plaque is identified bilaterally. Carotid velocity measurements bilaterally are consistent with 0-49% internal carotid artery stenosis.
Patient is awake and alert oriented
Speech is thick but no slurring noted
Cardiovascular system S1-S2 appreciated,
Chest clear to auscultation
Abdomen slightly distended, bowel sounds present
# Irregularity of the heart rhythm. EKG shows sinus rhythm with PACs
Dr Martinez reviewed Tele yesterday, PACs only no Afib.
# Dysarthria/ataxia
Unclear if secondary to hypercalcemia versus CVA
Aspirin, Plavix added for stroke per neurology, Held since 08/09/24 for nephrostomy tube
Neurology evaluation appreciated
MRI-no acute changes but neurology feels that there might be right pontine stroke
PT OT and speech eval appreciated
Normal video swallow exam
Acute rehab recommended by PT
Carotid ultrasound neg
Physiatry evaluation noted recommending SNF
Referrals placed per case management
# Left flank pain
Patient has a renal stent
Likely has an obstructed stent
Pain controlled with Tylenol, tramadol and lidocaine patch per patient preference
IR consulted for nephrostomy tube. On hold since patient got aspirin and Plavix. Has to be 5 days from the last dose. Which will be 08/14/2024
NPO after MN
# Hypercalcemia
Unclear reasons,
Malignancy related?
Status post pamidronate
PTH level less than 3.4 therefore this is a secondary process causing hypercalcemia possibly malignancy?
PTH related peptide-pending
Low vitamin D levels noted, replace once calcium has normalized
# Hyponatremia- Improving
Patient admits to drinking a lot of water. Advised to cut back. Sodium is better today.
Stopped HCTZ. Do not resume
# Hypertension-continue Lopressor. Hold triamterene hydrochlorothiazide
# Troponin elevation-nonischemic myocardial injury likely. Patient denies any chest pain or shortness of breath.
# Hypokalemia-Replaced. Normal Mag
# Hypothyroidism-continue levothyroxine. History of thyroid surgery for thyroid cancer with history of radioablation-Currently on Levothyroxine 200 mcg daily. Rpt TSH in am
# CKD stage III-known left ureteral stent secondary to retroperitoneal masses
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 Plan is for surgical procedure
at [facility] in the near future. Patient sees Dr. Shawn Gray
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
History of BETINA and BSO at [facility] in 2016 for spindle cell lesion
# Depression-Continue Lexapro
# Right bundle branch block
# GERD-History of Hiatal Hernia Repair with mesh and posterior partial fundoplication by Dr. Franco 2018-continue PPI
# Vitamin D deficiency-Hold off as calcium was high
# Chronic back pain with herniated disks
# IBS-on fiber, Bentyl, Imodium and Questran as outpatient. Currently constipated. Added MiraLAX
# DVT prophylaxis-subcutaneous heparin
# Full code
Discussed with IR DOC
Discussed with nursing
Discussed with case management
Case management to find a place for patient to be discharged on Wednesday after the nephrostomy tube
Part of this note was created using voice recognition system. Occasional wrong word or��sound alike� substitutions may have inadvertently occurred due to the inherent limitations of voice recognition software. If noted kindly bring it to my
attention for correction.
Anticipated Discharge: Within 24 hours
Subjective/Interval History
-
Date of Service: August 13, 2024
Objective Data
-
Labs:
Laboratory Results
08/13/24
06:15
Sodium 132 L
Potassium 3.5
Chloride 103
Carbon Dioxide 26
BUN 12
Creatinine 1.4 H
Glucose 88
Calcium 9.5
Vital Signs:
Vital Signs
Temp Pulse Resp BP Pulse Ox
98.1 F 87 18 122/63 97
08/13/24 11:19 08/13/24 11:19 08/13/24 11:19 08/13/24 11:19 08/13/24 11:19
I&O
08/12/24 08/13/24 08/14/24
06:59 06:59 06:59
Intake Total 480 / 480 480 / 480
Output Total 200 / 200
Balance 280 / 280 480 / 480
--- NOTE | 2024-08-13 12:45 | W.PN.URO.CBU ---
Today's Communication / Plan
-
for irad needs orders ie npo tonight
Assessment / Plan
-
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
Admitted for altered mental status, gait dysfunction, hypercalcemia
Recurrence of L flank pain and L hydronephrosis after stent placement mid May 2024
- Persistent/recurrent obstruction and L hydronephrosis suggests failure of indweling ureteral stent
- Stable renal function since prior to initial stent placement - unknown if L ureter obstruction contributes or if this is nonobstructive CKD
- Discussed with patient options of replacing the ureteral stent vs nephrostomy tube placement. Given stent was placed nearly 3 months ago, stent exchange could resume drainage of the kidney. However, given possible progression of tumor and unclear
timing of pending intervention, nephrostomy tube would be a more definitive drainage of the L kidney and avoid additional problems that could further delay treatment.
- Patient agreed to proceed with L nephrostomy tube placement
- Consult placed to IR
- Procedure delayed due to single dose of Plavix started yesterday
- Pain currently controlled enough that she could be discharged and have the nephrostomy tube placed next week outpatient - this was scheduled by IR
- Agree with course of empiric antibiotics pending urine culture
- Indwelling ureteral stent will eventually need to be removed, however this may be helpful during surgery to locate the ureter - will leave stent removal timing up to the operating surgical team
Diagnosis
-
Date of Service: August 13, 2024
-
Patient Diagnosis:
Post Op Day:
Patient Diagnosis:
Post Op Day:
Patient Diagnosis:
Post Op Day:
Patient Diagnosis:
Post Op Day:
Patient Diagnosis:
Malignant L ureteral obstruction
Flank pain
Post Op Day:
Subjective
-
left colic
Objective
-
Vital Signs
Temp Pulse Resp BP Pulse Ox
98.1 F 87 18 122/63 97
08/13/24 11:19 08/13/24 11:19 08/13/24 11:19 08/13/24 11:19 08/13/24 11:19
Intake and Output
08/12/24 08/13/24 08/14/24
06:59 06:59 06:59
Intake Total 480 / 480 480 / 480
Output Total 200 / 200
Balance 280 / 280 480 / 480
Intake:
Oral fluids 480 / 480 480 / 480
Output:
Urine, Voided 200 / 200
Other:
Number of approximated SMALL 5 5
amounts of urine
Number of approximated MODERATE 3 4
amounts of urine
Laboratory Results
08/09/24 11:55
08/13/24 06:15
Review of Systems
-
: Flank Pain
Physical Exam
-
General - well developed, well nourished, no acute distress
Chest - clear bilaterally
Abdomen - soft, non-tender, positive bowel sounds, no CVAT, no incisional pain or distention
Genitalia - normal
Rectal - normal
Skin - warm & dry with no rash
Neuro - AOx3, no motor deficits
Extremities - no clubbing, no cyanosis, no edema
Incision - clean, dry
Dressing - clean, dry, intact
Care Review
Data Reviewed
CT Scan: Image Pers Reviewed
[2024-08-13 15:55] VITALS: BP 120/62
[2024-08-13] MEDS: LEXAPRO 20 MG PO (18:20)
[2024-08-13] MEDS: LIPITOR 40 MG PO (18:20)
[2024-08-13 19:31] VITALS: BP 118/69
[2024-08-13] MEDS: REMOVE LIDOCAINE PATCH 2 PATCH REMOVE (20:56)
[2024-08-13 23:27] VITALS: BP 123/67
[2024-08-14] VITALS (16 sets, daily range): BP systolic 80–131; BP diastolic 57–78; PULSE 81–105; O2SAT 98; BMI 30.7
[2024-08-14] MEDS: SYNTHROID 200 MCG PO (05:47)
[2024-08-14 07:59] LABS: Blood Urea Nitrogen 14 mg/dl (7-17); Calcium 9.0 mg/dl (8.4-10.2); Carbon Dioxide 24 mmol/L (22-30); Chloride 106 mmol/L (98-107); Estimated Creatinine Clearance 35 ml/min; Glucose 85 mg/dl (70-99); Potassium 3.4 mmol/L (3.5-5.1); Sodium 135 mmol/L (135-145); eGFR 38.27
[2024-08-14] MEDS: PROTONIX 40 MG PO (08:19)
[2024-08-14] MEDS: HEPARIN 5000 UNITS SC ×3 (08:20→22:59)
[2024-08-14] MEDS: LIDOCAINE 4% PATCH 1 PATCH TOPICAL ×2 (08:21→08:22)
[2024-08-14] MEDS: KCL 20 MEQ PO (09:05)
--- NOTE | 2024-08-14 09:21 | CM ---
Addendum entered by Stefany Kilpatrick RN 08/14/24 10:19:
Update PT OT notified evals needed before discharge to [facility].
Addendum entered by Stefany Kilpatrick RN 08/14/24 10:03:
[facility] said they can accept her today if stable after IR procedure.
[facility]
report [phone]
fax [phone]
PLAN: to [facility]
Original Note:
Pt for Nephrostomy tube placement in IR today .
Pt and family request [facility]
Spoke with [facility] rep she is checking beds.
Requested PT OT to see her today post IR.
PLAN: After Nephrostomy tube placed assess if [facility] can accept her
--- NOTE | 2024-08-14 10:49 | W.PN.URO.CBU ---
Today's Communication / Plan
-
for irad
Assessment / Plan
-
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
Admitted for altered mental status, gait dysfunction, hypercalcemia
Recurrence of L flank pain and L hydronephrosis after stent placement mid May 2024
- Persistent/recurrent obstruction and L hydronephrosis suggests failure of indweling ureteral stent
- Stable renal function since prior to initial stent placement - unknown if L ureter obstruction contributes or if this is nonobstructive CKD
- Discussed with patient options of replacing the ureteral stent vs nephrostomy tube placement. Given stent was placed nearly 3 months ago, stent exchange could resume drainage of the kidney. However, given possible progression of tumor and unclear
timing of pending intervention, nephrostomy tube would be a more definitive drainage of the L kidney and avoid additional problems that could further delay treatment.
- Patient agreed to proceed with L nephrostomy tube placement
- Consult placed to IR
- Procedure delayed due to single dose of Plavix started yesterday
- Pain currently controlled enough that she could be discharged and have the nephrostomy tube placed next week outpatient - this was scheduled by IR
- Agree with course of empiric antibiotics pending urine culture
- Indwelling ureteral stent will eventually need to be removed, however this may be helpful during surgery to locate the ureter - will leave stent removal timing up to the operating surgical team
Diagnosis
-
Date of Service: August 14, 2024
-
Patient Diagnosis:
Post Op Day:
Patient Diagnosis:
Post Op Day:
Patient Diagnosis:
Post Op Day:
Patient Diagnosis:
Post Op Day:
Patient Diagnosis:
Post Op Day:
Patient Diagnosis:
Malignant L ureteral obstruction
Flank pain
Post Op Day:
Subjective
-
awaiting left perc tube
Objective
-
Vital Signs
Temp Pulse Resp BP Pulse Ox
98 F 81 18 118/69 98
08/14/24 10:19 08/14/24 10:19 08/14/24 10:19 08/14/24 10:19 08/14/24 10:19
Intake and Output
08/13/24 08/14/24 08/15/24
06:59 06:59 06:59
Intake Total 480 / 480 1200 / 1200
Balance 480 / 480 1200 / 1200
Intake:
Oral fluids 480 / 480 1200 / 1200
Other:
Number of approximated SMALL 5 4
amounts of urine
Number of approximated MODERATE 4 3
amounts of urine
Laboratory Results
08/09/24 11:55
08/14/24 05:51
Review of Systems
-
Abdomen/GI: Abdominal Pain
: Flank Pain
Physical Exam
-
General - well developed, well nourished, no acute distress
Chest - clear bilaterally
Abdomen - soft, non-tender, positive bowel sounds, no CVAT, no incisional pain or distention
Genitalia - normal
Rectal - normal
Skin - warm & dry with no rash
Neuro - AOx3, no motor deficits
Extremities - no clubbing, no cyanosis, no edema
Incision - clean, dry
Dressing - clean, dry, intact
[2024-08-14] MEDS: ROCEPHIN 2000 MG IV (10:51)
[2024-08-14] MEDS: STERILE WATER FOR INJECTION 20 ML IV (10:51)
--- NOTE | 2024-08-14 11:22 | CM ---
Update PT OT notified evals needed before discharge to [facility].
Addendum entered by Stefany Kilpatrick RN 08/14/24 10:03:
[facility] said [facility] can accept her today if stable after IR procedure.
[facility]
report [phone]
fax [phone]
PLAN: to [facility]
Original Note:
Pt for Nephrostomy tube placement in IR today .
Pt and family request [facility]
Spoke with [facility] rep she is checking beds.
Requested PT OT to see her today post IR.
PLAN: After Nephrostomy tube placed assess if [facility] can accept her
--- NOTE | 2024-08-14 11:42 | W.PN.ONC ---
Today's Communication / Plan
-
- Continue to monitor calcium, improved with pamidronate
- Patient will follow up with Dr. Teixeira and [facility] regarding plan for surgery
- will continue to follow while admitted.
Impression
Impression
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
[place] ED with weakness and slurred speech.
Hypercalcemia
- Patient's repeat calcium today 9
- Possible cause of weakness leading to admission
Spindle Cell Neoplasm of Smooth Muscle
- Records reviewed from [facility]
- Patient to continue follow up with Dr. Teixeira after discharge
- Patient having nephrostomy tube placed today, decision made to leave indwelling stent in because it'll be helpful to identify the ureter during surgery.
Weakness and slurred speech
- Brain MRI does not show any evidence of disease or have abnormal findings, per neuro consult exam consistent with R yeison stroke
H/O of thyroid cancer s/p resection
- Patient taking 200mg of Synthroid, as recently adjusted by her [facility] fur polisher
Plan
Plan
- Continue to monitor calcium, improved with pamidronate
- Patient will follow up with Dr. Teixeira and [facility] regarding plan for surgery
- will continue to follow while admitted.
Subjective/Objective
Subjective/Objective
Patient seen today lying in bed. She is nervous for her nephrostomy tube placement today, but is overall feeling well and is no pain. Patient denies all ROS.
Physical:
General: not in acute distress, AAOx3
Cardiovascular: RRR
Respiratory: normal breath sounds
Abdomen: Distended, non tender
Extremeties: No edema noted in lower extremeties
Vital Signs:
Vital Signs
Temp Pulse Resp BP Pulse Ox
98 F 81 18 118/69 98
08/14/24 10:19 08/14/24 10:19 08/14/24 10:19 08/14/24 10:19 08/14/24 10:19
Lab Results:
Laboratory Data
WBC 10.4 10^3/uL (4.8-10.8) 08/09/24 11:55
Hgb 11.0 g/dL (12.0-16.0) L 08/09/24 11:55
Plt Count 178 10^3/uL (130-400) 08/09/24 11:55
PT 16.2 Sec (11.4-14.6) H 08/09/24 07:32
INR 1.27 08/09/24 07:32
APTT 30.8 Sec (23.4-35.0) 08/07/24 00:59
eGFR 38.27 08/14/24 05:51
--- NOTE | 2024-08-14 15:03 | W.PN.HOSP.TC ---
Addendum entered and electronically signed by Ascencion August MD 08/16/24 17:38:
Correction Continue Lopressor should read as discontinue lopressor
Addendum entered and electronically signed by Ascencion August MD 08/14/24 16:41:
Head CT negative. Start aspirin Plavix
Original Note:
Today's Communication/Plan
-
Head CT
EEG
Restart antiplatelets if CT okay
Assessment / Plan
Assessment / Plan
78 y/o Weakness, Slurred Speech
Head CT-no acute changes. Dilatation of the ventricular system may be related to cerebral atrophy. Lateral ventricles are slightly more dilated than the third and fourth ventricles, and hydrocephalus should be considered in the setting of balance
problems.
MRI of the brain-no acute changes. Mild atrophy with slightly of mild chronic small less than ischemic disease.
EKG-sinus bradycardia right bundle branch block
CUS- No significant carotid plaque is identified bilaterally. Carotid velocity measurements bilaterally are consistent with 0-49% internal carotid artery stenosis.
Patient is awake and alert oriented
Cardiovascular system S1-S2 appreciated,
Chest clear to auscultation
Abdomen slightly distended, bowel sounds present
Mild bloodstained urine noted in the nephrostomy bag
Patient states that she had shaking in the left arm after she came back from the procedure lasted for a minute and then it stopped. She also has not been feeling well
# Shaking of the arm and then generalized weakness. Patient felt that she had more difficulty getting out of bed today. Check head CT and also EEG
Possible effects of sedation cannot be ruled out. Watch
# Irregularity of the heart rhythm. EKG shows sinus rhythm with PACs
Dr Martinez reviewed Tele , PACs only no Afib.
# Dysarthria/ataxia
Unclear if secondary to hypercalcemia versus CVA
Aspirin, Plavix added for stroke per neurology, Held since 08/09/24 for nephrostomy tube.
Restart today
Neurology evaluation appreciated
MRI-no acute changes but neurology feels that there might be right pontine stroke
PT OT and speech eval appreciated
Normal video swallow exam
Acute rehab recommended by PT
Carotid ultrasound neg
Physiatry evaluation noted recommending Rehab
Referrals placed per case management
# Left flank pain
Patient has a renal stent
Likely has an obstructed stent
Pain controlled with Tylenol, tramadol and lidocaine patch per patient preference
IR placed nephrostomy tube on 08/14/2024
# Hypercalcemia
Unclear reasons,
Malignancy related?
Status post pamidronate
PTH level less than 3.4 therefore this is a secondary process causing hypercalcemia possibly malignancy?
PTH related peptide-pending
Low vitamin D levels noted, replace once calcium has normalized
# Hyponatremia- Improving
Patient admits to drinking a lot of water. Advised to cut back. Sodium is better today.
Stopped HCTZ. Do not resume
# Hypertension-continue Lopressor. Hold triamterene hydrochlorothiazide
# Troponin elevation-nonischemic myocardial injury likely. Patient denies any chest pain or shortness of breath.
# Hypokalemia-Replaced. Normal Mag
# Hypothyroidism-continue levothyroxine. History of thyroid surgery for thyroid cancer with history of radioablation-Currently on Levothyroxine 200 mcg daily. Rpt TSH in am
# CKD stage III-known left ureteral stent secondary to retroperitoneal masses
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 Plan is for surgical procedure
at [place] in the near future. Patient sees Dr. Shawn Gray
[place] records-histologic features consistent with atypical smooth muscle of malarian origin although there is only mild atypia and no increased mitosis in the biopsy specimen differential includes well-differentiated leiomyosarcoma.
History of BETINA and BSO at [facility] in 2016 for spindle cell lesion
# Depression-Continue Lexapro
# Right bundle branch block
# GERD-History of Hiatal Hernia Repair with mesh and posterior partial fundoplication by Dr. Franco 2018-continue PPI
# Vitamin D deficiency-Hold off as calcium was high
# Chronic back pain with herniated disks
# IBS-on fiber, Bentyl, Imodium and Questran as outpatient. Currently constipated. Added MiraLAX
# DVT prophylaxis-subcutaneous heparin
# Full code
Discussed with IR DOC and Dr. Walters. Okay to start antiplatelets today
Discussed with at bedside
Discussed with nursing
Discussed with case management,
Appreciate case management finding a bed at [facility]. However patient is not feeling well post procedure therefore we will get a CT EEG and watch prior to discharging to [facility] probably tomorrow
Part of this note was created using voice recognition system. Occasional wrong word or��sound alike� substitutions may have inadvertently occurred due to the inherent limitations of voice recognition software. If noted kindly bring it to my
attention for correction.
Anticipated Discharge: Within 24 hours
Subjective/Interval History
-
Date of Service: August 14, 2024
Objective Data
-
Labs:
Laboratory Results
08/14/24
05:51
Sodium 135
Potassium 3.4 L
Chloride 106
Carbon Dioxide 24
BUN 14
Creatinine 1.4 H
Glucose 85
Calcium 9.0
Vital Signs:
Vital Signs
Temp Pulse Resp BP Pulse Ox
97.4 F 83 18 106/60 96
08/14/24 14:00 08/14/24 14:00 08/14/24 14:00 08/14/24 14:00 08/14/24 14:00
I&O
08/13/24 08/14/24 08/15/24
06:59 06:59 06:59
Intake Total 480 / 480 1200 / 1200
Balance 480 / 480 1200 / 1200
[2024-08-14] MEDS: LEXAPRO 20 MG PO (17:05)
[2024-08-14] MEDS: PLAVIX 75 MG PO (17:05)
[2024-08-14] MEDS: LIPITOR 40 MG PO (17:05)
[2024-08-14] MEDS: ASPIR LOW (ENTERIC COATED) 81 MG PO (17:05)
--- NOTE | 2024-08-14 18:06 | EEG.RPT ---
Electroencephalogram Report
Recording
Date of EE08/14/24
Type of EEG: Routine
Length of EEG recordin minutes
Done with Video Recording: Yes
Patient Status: Inpatient
Recording Conditions: Awake and Drowsy
Hyperventilation Performed: No
Photic Stimulation Performed: Yes
Report
LESS THAN 1 HOUR EEG INTERPRETATION:
Unremarkable EEG for age
CLINICAL CORRELATION:
A normal EEG does not rule out a diagnosis of epilepsy. If clinical suspicion for seizure persists, a prolonged recording may be warranted.
Clinical correlation is advised.
METHODS:
A 21 channel digitized electroencephalogram (EEG) was performed using the 10/20 international system of electrode placement and one-lead of ECG recorded. The [employer] quantitative EEG system was utilized.
ELECTROENCEPHALOGRAPHER IMPRESSION(S):
Quality of study
Fair with some sweat artifact and movement artifact
Background
There was an unremarkable anterior-posterior voltage gradient of alpha frequency.
With eye opening the background activity changed to a low voltage mixture of frequencies.
There were no significant asymmetries of background activity noted.
Sleep
Drowsiness present
Photic Stimulation
No activation
ECG
Normal sinus rhythm
[2024-08-14] MEDS: ULTRAM 50 MG PO (19:50)
[2024-08-14] MEDS: REMOVE LIDOCAINE PATCH 2 PATCH REMOVE (19:54)
[2024-08-15] VITALS (7 sets, daily range): BP systolic 108–133; BP diastolic 57–72; PULSE 89–109; BMI 30.8
[2024-08-15] MEDS: SYNTHROID 200 MCG PO (05:35)
[2024-08-15] MEDS: PROTONIX 40 MG PO (07:55)
[2024-08-15] MEDS: PLAVIX 75 MG PO (07:55)
[2024-08-15] MEDS: ASPIR LOW (ENTERIC COATED) 81 MG PO (07:55)
[2024-08-15] MEDS: LIDOCAINE 4% PATCH 1 PATCH TOPICAL ×2 (07:56)
[2024-08-15] MEDS: HEPARIN 5000 UNITS SC (07:58)
[2024-08-15 08:31] LABS: Blood Urea Nitrogen 14 mg/dl (7-17); Calcium 8.3 mg/dl (8.4-10.2); Carbon Dioxide 20 mmol/L (22-30); Chloride 105 mmol/L (98-107); Estimated Creatinine Clearance 38 ml/min; Glucose 96 mg/dl (70-99); Potassium 3.9 mmol/L (3.5-5.1); Sodium 133 mmol/L (135-145); eGFR 41.83
--- NOTE | 2024-08-15 09:53 | W.PN.ONC ---
Addendum entered and electronically signed by Edwin Moon MD 08/16/24 07:08:
Heme Onc will sign off. Call with any additional questions.
Patient will follow up with Dr. Teixeira and [facility] regarding plan for surgery
Original Note:
Today's Communication / Plan
-
- Calcium improved with pamidronate
- Patient will follow up with Dr. Teixeira and [facility] regarding plan for surgery
Impression
Impression
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
[place] ED with weakness and slurred speech.
Hypercalcemia
- Patient's repeat calcium today 8.3
- Possible cause of weakness leading to admission
Spindle Cell Neoplasm of Smooth Muscle
- Records reviewed from [facility]
- Patient to continue follow up with Dr. Teixeira after discharge
- Patient had nephrostomy tube placed yesterday, decision made to leave indwelling stent in because it'll be helpful to identify the ureter during surgery.
Weakness and slurred speech
- Brain MRI does not show any evidence of disease or have abnormal findings, per neuro consult exam consistent with R yeison stroke
- CT head 08/14: No CT evidence for acute intracranial hemorrhage or transcortical infarct. Mild to moderate diffuse cerebral and cerebellar volume loss.
H/O of thyroid cancer s/p resection
- Patient taking 200mg of Synthroid, as recently adjusted by her [facility] audio video repairer
Plan
Plan
- Calcium improved with pamidronate
- Patient will follow up with Dr. Teixeira and [facility] regarding plan for surgery
Subjective/Objective
Subjective/Objective
Patient seen today with at the bedside. Patient is feeling well this morning after her nephrostomy tube placement. Patient denies all ROS.
Vital Signs:
Vital Signs
Temp Pulse Resp BP Pulse Ox
98.4 F 85 18 120/65 98
08/15/24 07:41 08/15/24 07:41 08/15/24 07:41 08/15/24 07:41 08/15/24 07:41
Lab Results:
Laboratory Data
WBC 10.4 10^3/uL (4.8-10.8) 08/09/24 11:55
Hgb 11.0 g/dL (12.0-16.0) L 08/09/24 11:55
Plt Count 178 10^3/uL (130-400) 08/09/24 11:55
PT 16.2 Sec (11.4-14.6) H 08/09/24 07:32
INR 1.27 08/09/24 07:32
APTT 30.8 Sec (23.4-35.0) 08/07/24 00:59
eGFR 41.83 08/15/24 06:15
[2024-08-15] MEDS: ULTRAM 50 MG PO (10:04)
[2024-08-15] MEDS: MILK OF MAGNESIA 30 ML PO (11:11)
[2024-08-15] MEDS: MIRALAX 17 GRAMS PO (11:11)
[2024-08-15] MEDS: SENOKOT 17.2 MG PO ×2 (11:11→20:07)
[2024-08-15] MEDS: XANAX 0.25 MG PO (12:51)
[2024-08-15 14:44] LABS: Urine Character Cloudy (Clear)
[2024-08-15 14:50] LABS: Urine Red Blood Cell >100 /HPF (0-2); Urine Squamous Cell 0-2 /LPF (Few); Urine White Cell 16-20 /HPF (0-5)
--- NOTE | 2024-08-15 15:01 | W.PN.HOSP.TC ---
Addendum entered and electronically signed by Ascencion August MD 08/16/24 17:38:
Correction Continue Lopressor should read as discontinue lopressor
Original Note:
Today's Communication/Plan
-
Most rehab once patient have a bowel movement before she comes over
Bowel regimen ordered
Assessment / Plan
Assessment / Plan
78 y/o Weakness, Slurred Speech
Head CT-no acute changes. Dilatation of the ventricular system may be related to cerebral atrophy. Lateral ventricles are slightly more dilated than the third and fourth ventricles, and hydrocephalus should be considered in the setting of balance
problems.
MRI of the brain-no acute changes. Mild atrophy with slightly of mild chronic small less than ischemic disease.
EKG-sinus bradycardia right bundle branch block
CUS- No significant carotid plaque is identified bilaterally. Carotid velocity measurements bilaterally are consistent with 0-49% internal carotid artery stenosis.
Patient is awake and alert oriented
Cardiovascular system S1-S2 appreciated,
Chest clear to auscultation
Abdomen slightly distended, bowel sounds present
Mild bloodstained urine noted in the nephrostomy bag
# Shaking of the arm and then generalized weakness. Patient felt that she had more difficulty getting out
Possible effects of sedation cannot be ruled out.
CT scan and EEG unremarkable
# Irregularity of the heart rhythm. EKG shows sinus rhythm with PACs
Dr Martinez reviewed Tele , PACs only no Afib.
# Dysarthria/ataxia
Unclear if secondary to hypercalcemia versus CVA
Aspirin, Plavix added for stroke per neurology, Held since 08/09/24 for nephrostomy tube. Restarted on 08/15/2024
Hold Plavix with hematuria
Neurology evaluation appreciated
MRI-no acute changes but neurology feels that there might be right pontine stroke
PT OT and speech eval appreciated
Normal video swallow exam
Acute rehab recommended by PT
Carotid ultrasound neg
Physiatry evaluation noted recommending Rehab
Referrals placed per case management
# Left flank pain
Patient has a renal stent
Likely has an obstructed stent
Pain controlled with Tylenol, tramadol and lidocaine patch per patient preference
IR placed nephrostomy tube on 08/14/2024
# Hypercalcemia
Unclear reasons,
Malignancy related?
Status post pamidronate
PTH level less than 3.4 therefore this is a secondary process causing hypercalcemia possibly malignancy?
PTH related peptide-pending
Low vitamin D levels noted, replace once calcium has normalized
# Hyponatremia- Improving
Patient admits to drinking a lot of water. Advised to cut back. Sodium is better today.
Stopped HCTZ. Do not resume
# Hypertension-continue Lopressor. Hold triamterene hydrochlorothiazide
# Troponin elevation-nonischemic myocardial injury likely. Patient denies any chest pain or shortness of breath.
# Hypokalemia-Replaced. Normal Mag
# Hypothyroidism-continue levothyroxine. History of thyroid surgery for thyroid cancer with history of radioablation-Currently on Levothyroxine 200 mcg daily. Rpt TSH in am
# CKD stage III-known left ureteral stent secondary to retroperitoneal masses
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 Plan is for surgical procedure
at [place] in the near future. Patient sees Dr. Shawn Gray
[place] records-histologic features consistent with atypical smooth muscle of malarian origin although there is only mild atypia and no increased mitosis in the biopsy specimen differential includes well-differentiated leiomyosarcoma.
History of BETINA and BSO at [facility] in 2016 for spindle cell lesion
# Depression-Continue Lexapro
# Right bundle branch block
# GERD-History of Hiatal Hernia Repair with mesh and posterior partial fundoplication by Dr. Franco 2018-continue PPI
# Vitamin D deficiency-Hold off as calcium was high
# Chronic back pain with herniated disks
# IBS-on fiber, Bentyl, Imodium and Questran as outpatient. Currently constipated. Senokot, MiraLAX, milk of magnesium
# DVT prophylaxis-SCDs for now
# Full code
Discussed with at bedside
Discussed with nursing
Discussed with case management,
Part of this note was created using voice recognition system. Occasional wrong word or��sound alike� substitutions may have inadvertently occurred due to the inherent limitations of voice recognition software. If noted kindly bring it to my
attention for correction.
Anticipated Discharge: Within 24 hours
Subjective/Interval History
-
Date of Service: August 15, 2024
Objective Data
-
Labs:
Laboratory Results
08/15/24 08/15/24
06:15 15:01
Hgb Pending
Hct Pending
Sodium 133 L
Potassium 3.9
Chloride 105
Carbon Dioxide 20 L
BUN 14
Creatinine 1.3 H
Glucose 96
Calcium 8.3 L
Vital Signs:
Vital Signs
Temp Pulse Resp BP Pulse Ox
98.6 F 88 18 118/66 97
08/15/24 11:30 08/15/24 11:30 08/15/24 11:30 08/15/24 11:30 08/15/24 11:30
I&O
08/14/24 08/15/24 08/16/24
06:59 06:59 06:59
Intake Total 1200 / 1200 720 / 720
Output Total 745 / 745
Balance 1200 / 1200 - / 25
[2024-08-15 15:27] LABS: Hematocrit 27.8 % (37.0-47.0); Hemoglobin 9.1 g/dL (12.0-16.0)
--- NOTE | 2024-08-15 16:14 | CM ---
CM reviewed pt with [facility]
Bed available pending BM
Updater to Dr August
Discharge Disposition- [facility]
[2024-08-15] MEDS: LEXAPRO 20 MG PO (17:12)
[2024-08-15] MEDS: LIPITOR 40 MG PO (17:12)
--- NOTE | 2024-08-15 18:09 | W.PN.URO.CBU ---
Today's Communication / Plan
-
plan per oncology will need to remove stent kep perc tube
Assessment / Plan
-
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
Admitted for altered mental status, gait dysfunction, hypercalcemia
Recurrence of L flank pain and L hydronephrosis after stent placement mid May 2024
- Persistent/recurrent obstruction and L hydronephrosis suggests failure of indweling ureteral stent
- Stable renal function since prior to initial stent placement - unknown if L ureter obstruction contributes or if this is nonobstructive CKD
- Discussed with patient options of replacing the ureteral stent vs nephrostomy tube placement. Given stent was placed nearly 3 months ago, stent exchange could resume drainage of the kidney. However, given possible progression of tumor and unclear
timing of pending intervention, nephrostomy tube would be a more definitive drainage of the L kidney and avoid additional problems that could further delay treatment.
- Patient agreed to proceed with L nephrostomy tube placement
- Consult placed to IR
- Procedure delayed due to single dose of Plavix started yesterday
- Pain currently controlled enough that she could be discharged and have the nephrostomy tube placed next week outpatient - this was scheduled by IR
- Agree with course of empiric antibiotics pending urine culture
- Indwelling ureteral stent will eventually need to be removed, however this may be helpful during surgery to locate the ureter - will leave stent removal timing up to the operating surgical team
Diagnosis
-
Date of Service: August 15, 2024
-
Patient Diagnosis:
Post Op Day:
Patient Diagnosis:
Post Op Day:
Patient Diagnosis:
Post Op Day:
Patient Diagnosis:
Post Op Day:
Patient Diagnosis:
Post Op Day:
Patient Diagnosis:
Post Op Day:
Patient Diagnosis:
Malignant L ureteral obstruction
Flank pain
Post Op Day:
Subjective
-
tolerating per c tube
Objective
-
Vital Signs
Temp Pulse Resp BP Pulse Ox
98.4 F 83 18 108/62 94
08/15/24 15:43 08/15/24 15:43 08/15/24 15:43 08/15/24 15:43 08/15/24 15:43
Intake and Output
08/14/24 08/15/24 08/16/24
06:59 06:59 06:59
Intake Total 1200 / 1200 720 / 720
Output Total 745 / 745
Balance 1200 / 1200 -
Intake:
Oral fluids 1200 / 1200 720 / 720
Output:
Drain Output (Total) 320 / 320
Left 320 / 320
Urine, Voided 425 / 425
Other:
Number of approximated SMALL 4 1
amounts of urine
Number of approximated MODERATE 3 2 1
amounts of urine
Laboratory Results
08/15/24 15:14
08/15/24 06:15
Review of Systems
-
: Flank Pain
Physical Exam
-
General - well developed, well nourished, no acute distress
Chest - clear bilaterally
Abdomen - soft, non-tender, positive bowel sounds, no CVAT, no incisional pain or distention
Genitalia - normal
Rectal - normal
Skin - warm & dry with no rash
Neuro - AOx3, no motor deficits
Extremities - no clubbing, no cyanosis, no edema
Incision - clean, dry
Dressing - clean, dry, intact
Care Review
Data Reviewed
Discussed with: Nursing and [facility]AD
[2024-08-15] MEDS: REMOVE LIDOCAINE PATCH 1 PATCH REMOVE (20:08)
[2024-08-16 03:09] VITALS: BP 125/75
[2024-08-16] MEDS: SYNTHROID 200 MCG PO (05:27)
[2024-08-16 06:00] VITALS: BMI 30.9
[2024-08-16 07:59] VITALS: BP 108/63
[2024-08-16] MEDS: PROTONIX 40 MG PO (08:21)
[2024-08-16] MEDS: ASPIR LOW (ENTERIC COATED) 81 MG PO (08:21)
[2024-08-16] MEDS: LIDOCAINE 4% PATCH 1 PATCH TOPICAL ×2 (08:21)
[2024-08-16] MEDS: SENOKOT 17.2 MG PO (08:21)
[2024-08-16] MEDS: MIRALAX 17 GRAMS PO (08:22)
[2024-08-16] MEDS: SYNTHROID 25 MCG PO (09:12)
[2024-08-16 11:07] VITALS: BP 120/75
--- NOTE | 2024-08-16 12:58 | W.PN.URO.CBU ---
Today's Communication / Plan
-
to rehab
Assessment / Plan
-
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
Admitted for altered mental status, gait dysfunction, hypercalcemia
Recurrence of L flank pain and L hydronephrosis after stent placement mid May 2024
- Persistent/recurrent obstruction and L hydronephrosis suggests failure of indweling ureteral stent
- Stable renal function since prior to initial stent placement - unknown if L ureter obstruction contributes or if this is nonobstructive CKD
- Discussed with patient options of replacing the ureteral stent vs nephrostomy tube placement. Given stent was placed nearly 3 months ago, stent exchange could resume drainage of the kidney. However, given possible progression of tumor and unclear
timing of pending intervention, nephrostomy tube would be a more definitive drainage of the L kidney and avoid additional problems that could further delay treatment.
- Patient agreed to proceed with L nephrostomy tube placement
- Consult placed to IR
- Procedure delayed due to single dose of Plavix started yesterday
- Pain currently controlled enough that she could be discharged and have the nephrostomy tube placed next week outpatient - this was scheduled by IR
- Agree with course of empiric antibiotics pending urine culture
- Indwelling ureteral stent will eventually need to be removed, however this may be helpful during surgery to locate the ureter - will leave stent removal timing up to the operating surgical team
Diagnosis
-
Date of Service: August 16, 2024
-
Patient Diagnosis:
Post Op Day:
Patient Diagnosis:
Post Op Day:
Patient Diagnosis:
Post Op Day:
Patient Diagnosis:
Post Op Day:
Patient Diagnosis:
Post Op Day:
Patient Diagnosis:
Post Op Day:
Patient Diagnosis:
Post Op Day:
Patient Diagnosis:
Malignant L ureteral obstruction
Flank pain
Post Op Day:
Subjective
-
toleratin perc tube
Objective
-
Vital Signs
Temp Pulse Resp BP Pulse Ox
98.3 F 83 18 120/75 96
08/16/24 11:07 08/16/24 11:07 08/16/24 11:07 08/16/24 11:07 08/16/24 11:07
Intake and Output
08/15/24 08/16/24 08/17/24
06:59 06:59 06:59
Intake Total 720 / 720 840 / 840
Output Total 745 / 745 1600 / 1600
Balance -25 / -25 -760 / -760
Intake:
Oral fluids 720 / 720 840 / 840
Output:
Drain Output (Total) 320 / 320
Left 320 / 320
Urinary Drain Output (Total) 400 / 400
Nephrostomy 400 / 400
Urine, Voided 425 / 425 1200 / 1200
Other:
Number of approximated SMALL 1
amounts of urine
Number of approximated MODERATE 2 1
amounts of urine
Laboratory Results
08/15/24 15:14
08/15/24 06:15
Review of Systems
-
: No Symptoms
Physical Exam
-
General - well developed, well nourished, no acute distress
Chest - clear bilaterally
Abdomen - soft, non-tender, positive bowel sounds, no CVAT, no incisional pain or distention
Genitalia - normal
Rectal - normal
Skin - warm & dry with no rash
Neuro - AOx3, no motor deficits
Extremities - no clubbing, no cyanosis, no edema
Incision - clean, dry
Dressing - clean, dry, intact
Care Review
Data Reviewed
Discussed with: Nursing
[2024-08-16 15:07] VITALS: BP 111/65; PULSE 97; O2SAT 96
--- NOTE | 2024-08-16 15:09 | CM ---
entered order for discharge.
Pt has Nephrostomy tube placement.
Pt and family request [facility]
Spoke with [facility] rep accepted after PT eval done and BM.
Pt had BM.
PT eval being done.
[facility]
report [phone]
fax [phone]
PLAN: to [facility] via
--- NOTE | 2024-08-16 15:26 | W.PN.HOSP.TC ---
Addendum entered and electronically signed by Ascencion August MD 08/16/24 17:38:
Correction Continue Lopressor should read as discontinue lopressor
Addendum entered and electronically signed by Ascencion August MD 08/16/24 15:52:
Per discussion with oncology earlier during the admission not replacing vitamin D because of patient coming with hypercalcemia. I will defer this decision to patient's outpatient oncologist.
Original Note:
Today's Communication/Plan
-
Discharge to [facility]
Assessment / Plan
Assessment / Plan
78 y/o Weakness, Slurred Speech
Head CT-no acute changes. Dilatation of the ventricular system may be related to cerebral atrophy. Lateral ventricles are slightly more dilated than the third and fourth ventricles, and hydrocephalus should be considered in the setting of balance
problems.
MRI of the brain-no acute changes. Mild atrophy with slightly of mild chronic small less than ischemic disease.
EKG-sinus bradycardia right bundle branch block
CUS- No significant carotid plaque is identified bilaterally. Carotid velocity measurements bilaterally are consistent with 0-49% internal carotid artery stenosis.
Patient is awake and alert oriented
Cardiovascular system S1-S2 appreciated,
Chest clear to auscultation
Abdomen slightly distended, bowel sounds present
Mild bloodstained urine noted in the nephrostomy bag
# Constipation- Pt had Bms
# Shaking of the arm and then generalized weakness. Patient felt that she had more difficulty getting out after the IR procedure
Possible effects of sedation cannot be ruled out.
CT scan and EEG unremarkable
# Irregularity of the heart rhythm. EKG shows sinus rhythm with PACs
Dr Martinez reviewed Tele , PACs only no Afib.
# Dysarthria/ataxia
Unclear if secondary to hypercalcemia versus CVA
Aspirin, Plavix added for stroke per neurology, Held since 08/09/24 for nephrostomy tube. Restarted on 08/15/2024
Hold Plavix with hematuria
Neurology evaluation appreciated
MRI-no acute changes but neurology feels that there might be right pontine stroke
PT OT and speech eval appreciated
Normal video swallow exam
Acute rehab recommended by PT
Carotid ultrasound neg
Physiatry evaluation noted recommending Rehab
Referrals placed per case management
# Left flank pain
Patient has a renal stent
Likely has an obstructed stent
Pain controlled with Tylenol, tramadol and lidocaine patch per patient preference
IR placed nephrostomy tube on 08/14/2024
# Hypercalcemia
Unclear reasons,
Malignancy related?
Status post pamidronate
PTH level less than 3.4 therefore this is a secondary process causing hypercalcemia possibly malignancy?
PTH related peptide-pending
Low vitamin D levels noted, replace once calcium has normalized
# Hyponatremia- Improving
Patient admits to drinking a lot of water. Advised to cut back. Sodium is better today.
Stopped HCTZ. Do not resume
# Hypertension-continue Lopressor. Hold triamterene hydrochlorothiazide
# Troponin elevation-nonischemic myocardial injury likely. Patient denies any chest pain or shortness of breath.
# Hypokalemia-Replaced. Normal Mag
# Hypothyroidism-continue levothyroxine. History of thyroid surgery for thyroid cancer with history of radioablation-Currently on Levothyroxine 200 mcg daily. Rpt TSH in am
# CKD stage III-known left ureteral stent secondary to retroperitoneal masses
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 Plan is for surgical procedure
at [facility] in the near future. Patient sees Dr. Shawn Gray
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
History of BETINA and BSO at [facility] in 2016 for spindle cell lesion
# Depression-Continue Lexapro
# Right bundle branch block
# GERD-History of Hiatal Hernia Repair with mesh and posterior partial fundoplication by Dr. Franco 2019-continue PPI
# Vitamin D deficiency-Hold off as calcium was high
# Chronic back pain with herniated disks
# IBS-on fiber, Bentyl, Imodium and Questran as outpatient. Currently constipated. Senokot, MiraLAX, milk of magnesium
# DVT prophylaxis-SCDs for now
# Full code
Discussed with at bedside
Discussed with nursing
Discussed with case management,
Discussed with urology. Okay for discharge
More than 30 minutes spent in discharge including
Final examination of the patient
Summarizing hospital stay
Instructions for continuing care to all relevant caregivers
Preparation of discharge records, prescriptions, and referral forms
Total time spent (in minutes): 37 min
Part of this note was created using voice recognition system. Occasional wrong word or��sound alike� substitutions may have inadvertently occurred due to the inherent limitations of voice recognition software. If noted kindly bring it to my
attention for correction.
Anticipated Discharge: Today
Subjective/Interval History
-
Date of Service: August 16, 2024
Objective Data
-
Vital Signs:
Vital Signs
Temp Pulse Resp BP Pulse Ox
98.3 F 83 18 120/75 96
08/16/24 11:07 08/16/24 11:07 08/16/24 11:07 08/16/24 11:07 08/16/24 11:07
I&O
08/15/24 08/16/24 08/17/24
06:59 06:59 06:59
Intake Total 720 / 720 840 / 840
Output Total 745 / 745 1600 / 1600
Balance -25 / -25 -760 / -760
[2024-08-16 15:35] VITALS: BP 111/60
[2024-08-16 15:42] VITALS: BP 111/60; PULSE 82; O2SAT 96
--- NOTE | 2024-08-16 15:51 | W.DS.TRANS ---
Addendum entered and electronically signed by Ascencion August MD 08/16/24 17:40:
Dictation- [id number]
Original Note:
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
-
Discharge Instructions:
Discharge Diagnosis/Procedures Dysarthria ataxia-right pontine stroke per
neurology
Hydronephrosis, left flank pain , Hydronephrosis
left side status post nephrostomy tube
placement 08/14/2024
Hypercalcemia
Hyponatremia
Hypertension
Hypothyroidism
CKD stage III
Leiomyomatosis Multiple, large retroperitoneal
masses
Depression
GERD-History of Hiatal Hernia Repair with mesh
and posterior partial fundoplication by
Pellini
Vitamin D deficiency
Diet As tolerated
Activity As tolerated,With assistance
Driving Restrictions No driving
Blood Work Thyroid function tests in 6 weeks. CBC BMP 3 to
4 days
Other Services PT,OT,ST
Instructions:
Stand-Alone Forms:
Changes to Home Medications: Yes
Discharge Medications:
DC Medications w/original date entered in [employer]
montelukast 10 mg tablet 10 mg PO QPM Allergies 03/31/11
fexofenadine 60 mg tablet (Pushpa) 60 mg PO BID Allergies 08/30/17
Align 31/08 1 cap PO DAILY Supplement 08/07/24
calcium polycarbophil 625 mg tablet (FiberCon) 1,250 mg PO BID Supplement 08/07/24
escitalopram oxalate 20 mg tablet 20 mg PO QPM Mental Health/Anxiety 08/07/24
jfjanpdb-knat-ngrb 8 mg-folic 400 mcg-K 50 mcg-lutein 300 mcg tablet (Centrum Silver Women) 1 tab PO QPM Supplement 08/07/24
pantoprazole 40 mg tablet,delayed release 40 mg PO BID Gastrointestinal Issue 08/07/24
acetaminophen 325 mg tablet 650 mg (2 x 325 mg) PO Q4HPRN PRN mild pain #0 tabs 08/16/24
aspirin 81 mg tablet,delayed release 81 mg PO DAILY Blood clot prevention/tx #0 tabs 08/16/24
atorvastatin 40 mg tablet 40 mg PO QPM High cholesterol #0 tabs 08/16/24
clopidogrel 75 mg tablet 75 mg PO DAILY Blood clot prevention/tx #20 tabs 08/16/24
dicyclomine 10 mg capsule 10 mg PO BID PRN Muscle Spasms #0 caps 08/16/24
levothyroxine 200 mcg tablet 200 mcg PO DAILY @ 0600 Thyroid #30 tabs 08/16/24
levothyroxine 25 mcg tablet 25 mcg PO DAILY @ 0600 Thyroid #30 tabs 08/16/24
lidocaine 4 % topical patch 1 patch topical DAILY pain #0 ea 08/16/24
sennosides 8.6 mg tablet (Qing-aysha) 17.2 mg (2 x 8.6 mg) PO HS Constipation #0 tabs 08/16/24
tramadol 50 mg tablet 50 mg PO Q6HPRN PRN moderate pain #0 tabs 08/16/24
Home Medication Changes
Questran, triamterene hydrochlorothiazide, beta-yon, Imodium. Stopped
Synthroid dose increased
Lidocaine, Senokot, tramadol, atorvastatin, aspirin, Plavix are new
Pending Results: No
== END 2024-08-16 16:46 | DRG 640 ==
LOC: 4 EAST ACU 03:05
PROVIDERS: Emergency Medicine; Radiology Vascular & Interventional Radiology; ADMITTING PHYSICIAN Hospitalist; ATTENDING PHYSICIAN Hospitalist; CONSULT PHYSICIAN Physical Medicine & Rehabilitation; CONSULT PHYSICIAN Urology; EMERGENCY PHYSICIAN Emergency Medicine; FAMILY PHYSICIAN Internal Medicine; OTHER PHYSICIAN Internal Medicine Hematology & Oncology; OTHER PHYSICIAN Psychiatry & Neurology Clinical Neurophysiology
PROC: 0T9130Z Drainage of Left Kidney with Drainage Device, Percutaneous Approach (ICD-10-PCS; 2024-08-14)
DX: E83.52 Hypercalcemia (principal); I63.29 Cerebral infarction due to unspecified occlusion or stenosis of other precerebral arteries; E44.0 Moderate protein-calorie malnutrition; E87.1 Hypo-osmolality and hyponatremia; I5A Non-ischemic myocardial injury (non-traumatic); N13.1 Hydronephrosis with ureteral stricture, not elsewhere classified; G81.94 Hemiplegia, unspecified affecting left nondominant side; E86.1 Hypovolemia; E87.6 Hypokalemia; N18.30 Chronic kidney disease, stage 3 unspecified; E11.22 Type 2 diabetes mellitus with diabetic chronic kidney disease; I12.9 Hypertensive chronic kidney disease with stage 1 through stage 4 chronic kidney disease, or unspecified chronic kidney disease; K58.0 Irritable bowel syndrome with diarrhea; K21.9 Gastro-esophageal reflux disease without esophagitis; Z93.6 Other artificial openings of urinary tract status; F32.A Depression, unspecified; D64.9 Anemia, unspecified; E78.00 Pure hypercholesterolemia, unspecified; E89.0 Postprocedural hypothyroidism; F41.9 Anxiety disorder, unspecified; R29.810 Facial weakness; Z79.84 Long term (current) use of oral hypoglycemic drugs; Z79.899 Other long term (current) drug therapy; Z85.850 Personal history of malignant neoplasm of thyroid; Z68.30 Body mass index [BMI] 30.0-30.9, adult
CPT/HCPCS: 50432; 70450; 70553; 74176; 74230; 80048; 80061; 80076; 81003; 81015; 82306; 82330; 83036; 83519; 83735; 83930; 83935; 83970; 84132; 84300; 84439; 84443; 84484; 85014; 85018; 85025; 85027; 85610; 85730; 87086; 92610; 92611; 93005; 93880; 95816; 96360; 97116; 97163; 97166; 97530; 97535; 99152; 99285; A9575; C1729; C1769; J2430

== ENCOUNTER 2024-09-04 20:28 | Emergency (ER) | payer MEDICARE, BC, SELFPAY ==
[2024-09-04 20:32] VITALS: BP 108/58
[2024-09-04 21:07] LABS: Hematocrit 28.6 % (37.0-47.0); Hemoglobin 9.1 g/dL (12.0-16.0); Mean Corp Hgb Conc. 31.8 g/dL (33.0-37.0); Mean Corpuscular Volume 92.0 fL (81.0-99.0); Nucleated Red Blood Cells % 0 %; Platelet Count 226 10^3/uL (130-400); Red Cell Dist. Width 17.2 % (11.5-14.5)
[2024-09-04 21:20] LABS: ALT (SGPT) 13 U/L (0-35); AST (SGOT) 24 U/L (14-36); Albumin 4.0 g/dl (3.5-5.0); Alkaline Phosphatase 76 U/L (38-126); Blood Urea Nitrogen 21 mg/dl (7-17); Calcium 9.3 mg/dl (8.4-10.2); Carbon Dioxide 24 mmol/L (22-30); Chloride 102 mmol/L (98-107); Glucose 110 mg/dl (70-99); Potassium 3.7 mmol/L (3.5-5.1); Sodium 135 mmol/L (135-145); Total Protein 6.6 g/dl (6.3-8.2); eGFR 35.23
[2024-09-05 00:41] VITALS: BP 104/60
[2024-09-05 00:43] VITALS: BMI 31.9
--- NOTE | 2024-09-05 00:54 | ED.GENMED ---
History of Present Illness
<Gypsy Liao DO, Resident - Last Filed: 09/05/24 15:12>
General
Chief Complaint: Catheter/Tube Problem
Time Seen by Provider: 09/05/24 00:13
History of Present Illness
History of Present Illness:
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
placement presenting with bleeding from the nephrostomy tube incision. Patient was discharged from [facility] 5 days ago. Patient has been experiencing some 'weeping' of serosanginous fluid from the drain incision site for 2 days. Yesterday the
incision was bloody and expressing even more blood today. Patient's daughter has been changing the dressings twice a day.
Past History
<Gypsy Liao DO, Resident - Last Filed: 09/05/24 15:12>
Past History
ED Past Medical History: Arrthythmia, Cancer (thyroid), Hypothyroidism, Other (Bursitis,), Other (Had fast-growing cataracts, Cataract surgery) and Other (Bad seasonal allergies, chronic head and nasal congestion with headaches, is on Pushpa all
year long. Takes Monolukast as needed.); Negative HTN, Hypercholesterolemia or NIDDM
ED Past Surgical History: Appendectomy, Cholecystectomy, Gynecological (Hysterectomy), Orthopedic (Bilateral knee replacements) and Other (Abd surgery for large fibroid)
Social History
Tobacco: Non-smoker
Alcohol: None
Personal:
Living: with family
Employment: Employed
Family History
Family History: Adopted
Review of Systems
<Gypsy Liao DO, Resident - Last Filed: 09/05/24 15:12>
Review of Systems
Constitutional: Reports no symptoms
EENT: Reports no symptoms
Respiratory: Reports no symptoms
Cardiac: Reports no symptoms
ABD/GI: Reports no symptoms
: Reports no symptoms
Musculoskeletal: Reports no symptoms
Skin: Reports no symptoms
Psychiatric: Reports no symptoms
Phy Exam
<Gypsy Liao DO, Resident - Last Filed: 09/05/24 15:12>
General Physical Exam
General Presentation: well appearing and no apparent distress
General age: appears stated age
General Skin: warm and dry
Cardiovascular Exam
Cardiovascular Exam: regular rate/rhythm
Heart Sounds: normal
Pulmonary Exam
Pulmonary Exam: lungs clear
Gastrointestinal Exam
Gastrointestinal Exam: non tender and distended
Course
<Gypsy iLao DO, Resident - Last Filed: 09/05/24 15:12>
Orders/Labs/Results
Orders:
Orders
09/04/24 20:59
Type And Crossmatch [Type+Screen] Urgent
Complete Blood Count/With Diff Urgent
Comprehensive Metabolic Panel Urgent
Lactic Acid Urgent
09/05/24 00:54
CT Abd/pel Without Iv Or Oral Urgent
Comment:
Reason For Exam: Left flank pain, bleeding around nephrostomy tube
Abnormal Lab Results
09/04/24
20:59
RBC 3.11 L 10^6/uL
(4.20-5.40)
Hgb 9.1 L g/dL
(12.0-16.0)
Hct 28.6 L %
(37.0-47.0)
MCHC 31.8 L g/dL
(33.0-37.0)
RDW 17.2 H %
(11.5-14.5)
Absolute Monos (auto) 0.8 H 10^3/uL
(0.1-0.6)
Lymphocytes % 14.1 L %
(20.5-51.1)
BUN 21 H mg/dl
(7-17)
Creatinine 1.5 H mg/dL
(0.6-1.0)
Glucose 110 H mg/dl
(70-99)
09/04/24 20:59
09/04/24 20:59
Vital Signs
Initial and Last Documented VS:
Initial Vital Signs
Temp Pulse Resp BP Pulse Ox
98.0 F 76 20 108/58 98
09/04/24 20:32 09/04/24 20:32 09/04/24 20:32 09/04/24 20:32 09/04/24 20:32
Last Documented Vital Signs
Temp Pulse Resp BP Pulse Ox
98.0 F 77 16 112/61 97
09/04/24 20:32 09/05/24 03:15 09/05/24 03:15 09/05/24 03:15 09/05/24 03:15
<Andreia Vee, DO - Last Filed: 09/05/24 02:38>
Orders/Labs/Results
Orders:
Orders
09/04/24 20:59
Type And Crossmatch [Type+Screen] Urgent
Complete Blood Count/With Diff Urgent
Comprehensive Metabolic Panel Urgent
Lactic Acid Urgent
09/05/24 00:54
CT Abd/pel Without Iv Or Oral Urgent
Comment:
Reason For Exam: Left flank pain, bleeding around nephrostomy tube
Abnormal Lab Results
09/04/24
20:59
RBC 3.11 L 10^6/uL
(4.20-5.40)
Hgb 9.1 L g/dL
(12.0-16.0)
Hct 28.6 L %
(37.0-47.0)
MCHC 31.8 L g/dL
(33.0-37.0)
RDW 17.2 H %
(11.5-14.5)
Absolute Monos (auto) 0.8 H 10^3/uL
(0.1-0.6)
Lymphocytes % 14.1 L %
(20.5-51.1)
BUN 21 H mg/dl
(7-17)
Creatinine 1.5 H mg/dL
(0.6-1.0)
Glucose 110 H mg/dl
(70-99)
09/04/24 20:59
09/04/24 20:59
Vital Signs
Initial and Last Documented VS:
Initial Vital Signs
Temp Pulse Resp BP Pulse Ox
98.0 F 76 20 108/58 98
09/04/24 20:32 09/04/24 20:32 09/04/24 20:32 09/04/24 20:32 09/04/24 20:32
Last Documented Vital Signs
Temp Pulse Resp BP Pulse Ox
98.0 F 77 16 112/61 97
09/04/24 20:32 09/05/24 03:15 09/05/24 03:15 09/05/24 03:15 09/05/24 03:15
<Gypsy Liao DO, Resident - Last Filed: 09/05/24 15:12>
*Pulse Oximetry
SaO2: 97
Oxygen Mode of Delivery: Room air
<Andreia Vee DO - Last Filed: 09/05/24 02:38>
*Radiology
Radiology exam reviewed: radiology read reviewed
*Pulse Oximetry
Patient hypoxic: no
*Critical Care Note
Total Time (30-74mins, 75-104mins- exclusive of procedures): Not Applicable
ED Attending Note
<Gypsy Liao DO, Resident - Last Filed: 09/05/24 15:12>
-
Portions of this chart may have been created with voice recognition software.� Occasional wrong word or��sound alike� substitutions may have occurred due to the inherent limitations of voice recognition software.
<Andreia Vee DO - Last Filed: 09/05/24 02:38>
ED Attending Note
Patient seen and examined by attending physician: Yes
I performed the substantive portion of visit, reviewed & personally made and approve the management plan that is documented in note by myself or FLOR.: Yes
ED Attending Note:
This is a 78-year-old woman with history of spindle cell neoplasm of smooth muscle with multiple pelvic as well is a large left retroperitoneal masses. She has left ureteral stent in place due to left retroperitoneal mass and with persistent
hydronephrosis required nephrostomy tube placement on the left August 14. Recently hospitalized in July with acute CVA symptoms, concern for right pontine CVA. MRI was unremarkable. Discharged to home from [facility] on August 31.
During her rehab stay she was noted to be anemic required 1 unit of packed red blood cells. Hemoglobin upon discharge 8.8.
She was having intermittent hematuria from nephrostomy tube thus Plavix has remained on hold. No further hematuria but over the past several days has had intermittent bleeding from around the left nephrostomy tube. She has not had a fever nor
chills.
Daughter has been changing the dressing around the nephrostomy tube and was concerned when dressing has repeatedly become soaked with blood. They have not noticed clots.
She is planned to follow-up with urology, Dr. Walters next Wednesday for ureteral stent removal. Nephrostomy tube is to remain in place. She follows with specialist at [facility].
78-year-old woman is bright and alert, pleasant, appears in no acute distress. Quite chatty. Daughter and granddaughter are accompanying.
Afebrile, vital signs within normal limits.
Heart is regular rate and rhythm.
Lungs are clear to auscultation. No respiratory distress.
Left nephrostomy tube is secured in place with sutures. There is moderate serosanguineous drainage noted on 2 x 2 dressings which have been removed. Initially note of scant serosanguineous drainage from around the nephrostomy tube site especially
when palpating superiorly but then no further drainage noted. No bleeding. There is no palpable tenderness. No erythema nor ecchymosis.
Concern for progression of tumor, concern for focal pocket of fluid/blood.
Labs are reassuring with normal white blood cell count.
Hemoglobin 9.1, trending up. Normal platelet count.
Creatinine 1.5, at patient's baseline.
Will check CT abdomen pelvis without contrast assess for focal fluid complexion, hematoma, progression of spindle cell masses.
02:30
CAT scan overall similar to previous.
Dressing remains dry.
Will discharge to home with recommendations to continue with local dressing changes as needed.
Plan for prompt follow-up with urology as well as continued follow-up with oncologist.
Return precautions discussed.
Discharge Plan
Departure
Patient Disposition: Home (Routine Discharge)
Date of Disposition: 09/05/24
Time of Disposition: 02:36
Patient with high blood pressure during this ER visit?: No
Condition: Good
Discharge Problem:
Hemorrhage from nephrostomy tube
Instructions: How to care for a nephrostomy tube
Prescriptions:
No Action
montelukast 10 MG tablet
10 mg PO QPM
Align 31/08
1 cap PO DAILY
escitalopram oxalate 20 mg Tablet
20 mg PO QPM
Centrum Silver Women 8 mg iron-400 mcg-50 mcg Tablet
1 tab PO QPM
pantoprazole 40 MG tablet,delayed release (DR/EC)
40 mg PO BID
lidocaine 4 % Adhesive Patch,Medicated
1 patch topical DAILY Qty: 0 0RF
aspirin 81 mg Tablet,Delayed Release (Dr/Ec)
81 mg PO DAILY Qty: 0 0RF
clopidogrel 75 mg Tablet
75 mg PO DAILY Qty: 20 0RF
Rx Instructions:
start 08/18/24
levothyroxine 200 mcg Tablet
200 mcg PO DAILY @ 0600 Qty: 30 0RF
Rx Instructions:
total 225 mcg
levothyroxine 25 mcg Tablet
25 mcg PO DAILY @ 0600 Qty: 30 0RF
Rx Instructions:
total 225 mcg
sennosides [Qing-aysha] 8.6 mg Tablet
17.2 mg PO HS Qty: 0 0RF
acetaminophen 325 mg Tablet
650 mg PO Q4HPRN PRN (Reason: mild pain) Qty: 0 0RF
dicyclomine 10 mg Capsule
10 mg PO BID PRN (Reason: Muscle Spasms) Qty: 0 0RF
loratadine 10 mg Tablet
10 mg PO DAILY 30 Days Qty: 30 0RF
tramadol 50 mg Tablet
50 mg PO Q6HPRN PRN (Reason: moderate pain) 5 Days Qty: 20 0RF
alprazolam 0.25 mg Tablet
0.25 mg PO Q8HPRN PRN (Reason: anxiety) 3 Days Qty: 9 0RF
atorvastatin 40 mg Tablet
40 mg PO QPM 30 Days Qty: 30 0RF
Referrals:
Eitan Walters MD [Active, Urology] - Keep scheduled appt
Samson Davenport MD [Family Provider, Internal Medicine] - Call in 1-3 days for appt
Interventions
Interventions:
*Risk Screen - Suicide Last Done: 09/05/24 00:33
*General Assessment Last Done: 09/04/24 20:32
*Neglect/Abuse Screening Last Done: 09/05/24 00:33
*ED- Fall Risk Assessment Last Done: 09/05/24 00:33
*ED COVID-19 Vaccine History Last Done: 09/05/24 00:33
*Nursing Disposition Last Done: 09/05/24 03:15
BT-Sqnmyh-Awlslhnckv Assessment Last Done: 09/05/24 00:33
ED-Female Genitourinary Assessment Last Done: 09/05/24 00:33
Discharge Date and Time
Discharge Date/Time: 09/05/24 03:15
Print Language: COLOMBIAN
[2024-09-05 03:15] VITALS: BP 112/61
== END 2024-09-05 03:15 | disposition home or self-care (01) ==
LOC: EMR 20:28
PROVIDERS: Emergency Medicine; EMERGENCY PHYSICIAN Emergency Medicine; FAMILY PHYSICIAN Internal Medicine
DX: N99.520 Hemorrhage of incontinent external stoma of urinary tract (principal); E03.9 Hypothyroidism, unspecified; E11.9 Type 2 diabetes mellitus without complications; Z85.850 Personal history of malignant neoplasm of thyroid; Z86.018 Personal history of other benign neoplasm; Z90.49 Acquired absence of other specified parts of digestive tract; Z90.710 Acquired absence of both cervix and uterus; Z90.722 Acquired absence of ovaries, bilateral; Z96.653 Presence of artificial knee joint, bilateral
CPT/HCPCS: 99284; 74176; 80053; 83605; 85025; 86850; 86900; 86901

== ENCOUNTER → 2024-09-08 13:40 | Outpatient (REF) | payer MEDICARE, BC, SELFPAY ==
[2024-09-08 15:29] LABS: Hematocrit 25.9 % (37.0-47.0); Hemoglobin 7.9 g/dL (12.0-16.0); Mean Corp Hgb Conc. 30.5 g/dL (33.0-37.0); Mean Corpuscular Volume 94.9 fL (81.0-99.0); Platelet Count 208 10^3/uL (130-400); Red Cell Dist. Width 17.5 % (11.5-14.5)
[2024-09-08 16:15] LABS: Blood Urea Nitrogen 19 mg/dl (7-17); Calcium 9.1 mg/dl (8.4-10.2); Carbon Dioxide 29 mmol/L (22-30); Chloride 100 mmol/L (98-107); Glucose 107 mg/dl (70-99); Potassium 3.1 mmol/L (3.5-5.1); Sodium 137 mmol/L (135-145); eGFR 32.60
== END ==
LOC: HWLAB 13:40
PROVIDERS: ATTENDING PHYSICIAN Physician Assistant Medical; FAMILY PHYSICIAN Internal Medicine; REFERRING PHYSICIAN Internal Medicine Cardiovascular Disease
DX: R60.0 Localized edema (principal); I10 Essential (primary) hypertension; I47.10 Supraventricular tachycardia, unspecified; D64.9 Anemia, unspecified
CPT/HCPCS: 36415; 80048; 85027

== ENCOUNTER 2024-09-12 17:22 | Inpatient (IN) | payer MEDICARE, BC, SELFPAY ==
[2024-09-12] VITALS (9 sets, daily range): BP systolic 101–116; BP diastolic 54–64; BMI 30.5
[2024-09-12 13:02] LABS: Hematocrit 24.6 % (37.0-47.0); Hemoglobin 8.0 g/dL (12.0-16.0); Mean Corp Hgb Conc. 32.5 g/dL (33.0-37.0); Mean Corpuscular Volume 92.5 fL (81.0-99.0); Nucleated Red Blood Cells % 0 %; Platelet Count 222 10^3/uL (130-400); Red Cell Dist. Width 17.7 % (11.5-14.5)
[2024-09-12 13:59] LABS: ALT (SGPT) 11 U/L (0-35); AST (SGOT) 20 U/L (14-36); Albumin 3.4 g/dl (3.5-5.0); Alkaline Phosphatase 86 U/L (38-126); Blood Urea Nitrogen 20 mg/dl (7-17); Calcium 9.0 mg/dl (8.4-10.2); Carbon Dioxide 31 mmol/L (22-30); Chloride 99 mmol/L (98-107); Glucose 106 mg/dl (70-99); Potassium 3.2 mmol/L (3.5-5.1); Sodium 136 mmol/L (135-145); Total Protein 5.8 g/dl (6.3-8.2); eGFR 32.60
--- NOTE | 2024-09-12 14:03 | ED.GENMED ---
History of Present Illness
General
Chief Complaint: Weakness
Source: patient, records and family
Exam Limitations: none
Time Seen by Provider: 09/12/24 13:40
History of Present Illness
History of Present Illness:
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 Patient reports progressive malaise and generalized weakness over the past
several weeks. She had a nephrostomy tube placed last month and has had ongoing bleeding around the site for the past few weeks. She was seen in the ED last week for the same. She woke up this morning and felt like she was choking and had a lot
of mucus in the back of her throat with dyspnea. She was seen by her PCP this afternoon and was sent to the ED for evaluation. Plan is to have surgery at [facility] for her pelvic tumor but this was cancelled due to her recent hospitalization and has
not been rescheduled as of yet.
Past History
Past History
ED Past Medical History: Arrthythmia, Cancer (thyroid), Hypothyroidism, Other (Bursitis,), Other (Had fast-growing cataracts, Cataract surgery) and Other (Bad seasonal allergies, chronic head and nasal congestion with headaches, is on Pushpa all
year long. Takes Monolukast as needed.); Negative HTN, Hypercholesterolemia or NIDDM
ED Past Surgical History: Appendectomy, Cholecystectomy, Gynecological (Hysterectomy), Orthopedic (Bilateral knee replacements) and Other (Abd surgery for large fibroid)
Social History
Tobacco: Non-smoker
Alcohol: None
Personal:
Living: with family
Employment: Employed
Family History
Family History: Adopted
Phy Exam
General Physical Exam
General Presentation: no apparent distress
General Skin: warm and dry
General Habitus: elderly and frail
General Mental: alert
ENT Exam
ENT Exam: normocephalic
Cardiovascular Exam
Cardiovascular Exam: regular rate/rhythm
Pulmonary Exam
Pulmonary Exam: no respiratory distress and decreased breath sounds (L lung base)
Gastrointestinal Exam
Gastrointestinal Exam: non tender and distended
External Findings: nephrostomy drain (Blood noted on ABD pad surrounding nephrostomy tube)
Neurological Exam
Neurological Exam: alert
Jerel Coma Scale
Eye Opening: Spontaneous
Verbal Response: Oriented
Motor Response: Obeys Commands
GCS Total Score: 15
Skin Exam
Skin Exam: normal color and warm/dry
Psychiatric Exam
Psychiatric Exam: normal mood/affect
Course
Orders/Labs/Results
Orders:
Orders
09/12/24 12:29
Electrocardiogram (*1) Urgent
Reason for Study: Shortness of Breath
EKG- Treatment ONCE
09/12/24 12:55
Complete Blood Count/With Diff Urgent
Comprehensive Metabolic Panel Urgent
Magnesium Urgent
09/12/24 13:59
CT Chest/abd/pel Wo Iv Cont Urgent
Comment:
Reason For Exam: SOB, bleeding around nephrostomy tube
Cardiac Monitoring- Treatment ONCE
09/12/24 14:01
Add On- LAB Urgent
Tests Added?: magnesium
Potassium Chloride [KCl] 40 meq PO NOW STA
09/12/24 14:15
Urinalysis Reflex To Culture Urgent
Date Specimen was Collected: 09/12/24
Time Specimen was Collected: 12:31
Urine Microscopic Reflex Cult Urgent
Urine Culture Urgent
VERÓNICA Source: U
Specimen Description:
Date Specimen was Collected: 09/12/24
Time Specimen was Collected: 12:31
09/12/24 14:16
NT-proBNP Urgent
Troponin I Urgent
09/12/24 Dinner
Clear Liquid
09/12/24 15:41
CefTRIAXone [Rocephin] 2,000 mg IV NOW STA
09/12/24 16:[address] Non Medication Order As Directed
Physician Order: please reconcile med rec. thanks
Above order entered?: Yes
09/12/24 16:57
Admit/Transfer Patient As Directed
Co-Sign Provider:
Level of Care: Inpatient admission
Assign to:: Medical/Surgical
Physician / Group: linn
Diagnosis: pleural effusion, large consolidation
Reason for Hospitalization: large pleural effusion
consolidation
Expected length of stay greater than two midnights?: Yes
ELOS- Estimated Length of Stay in days: 3
I certify the patient meets the requirements for IP care: Yes
PRN Pain Medication Management As Directed
May give lesser potent ordered pain med per pt: Yes
preference::
Protocol:: Medication orders for pain may be administered in a
manner that supports deferring to patient preference
when the pt is:
- Requesting an ordered lesser potent pain medication.
Least to most potent pain medications are defined
as: acetaminophen < NSAID < tramadol < opioids
(morphine, oxycodone, hydromorphone).
- Requesting a lesser dose of the same medication IF
ORDERED.
- Requesting a less intrusive route of administration
if both routes are prescribed by the provider (PO <
IV).
09/12/24 17:00
Code Status As Directed
Resuscitation Status: Full Code
09/12/24 17:03
IRAD CONSULT Routine
Consulting Provider: Onesimo Mendoza
Was physician already notified: Yes
Procedure being ordered, including laterality if applicable: paracentesis and thoracentesis
Acknowledgement that appropriate orders are entered: Yes
09/12/24 17:07
Loratadine [Claritin] 10 mg PO NOW STA
09/12/24 18:00
COVID-19 Antigen Routine
Source: Nasal Swab
Influenza A+B Rapid Molecular Routine
VERÓNICA Source: Nasal Swab
Specimen Description:
08/05/25 18:12
Tramadol HCl [Ultram] 50 mg PO Q6HPRN PRN moderate pain
09/12/24 20:00
Cefepime HCl [Maxipime] 2,000 mg IV Q12H
Doxycycline [Vibramycin] 100 mg PO Q12
Abnormal Lab Results
09/12/24 09/12/24
12:55 14:15
RBC 2.66 L 10^6/uL
(4.20-5.40)
Hgb 8.0 L g/dL
(12.0-16.0)
Hct 24.6 L %
(37.0-47.0)
MCHC 32.5 L g/dL
(33.0-37.0)
RDW 17.7 H %
(11.5-14.5)
MPV 10.6 H fL
(7.4-10.4)
Abs Immat Gran (auto) 0.1 H 10^3/uL
(0-0.05)
Absolute Neuts (auto) 7.4 H 10^3/uL
(1.4-6.5)
Absolute Lymphs (auto) 1.1 L 10^3/uL
(1.2-3.4)
Absolute Monos (auto) 0.7 H 10^3/uL
(0.1-0.6)
Neutrophils % 79.6 H %
(42.2-75.2)
Lymphocytes % 11.5 L %
(20.5-51.1)
Potassium 3.2 L mmol/L
(3.5-5.1)
Carbon Dioxide 31 H mmol/L
(22-30)
BUN 20 H mg/dl
(7-17)
Creatinine 1.6 H mg/dL
(0.6-1.0)
Glucose 106 H mg/dl
(70-99)
Total Protein 5.8 L g/dl
(6.3-8.2)
Albumin 3.4 L g/dl
(3.5-5.0)
Ur Occult Blood Reflex 4+ A
(Negative)
Leukocyte Esterase Rfl 3+ A
(Negative)
Urine RBC >100 A /HPF
(0-2)
Urine Bacteria (Reflex) Many A
(Negative)
Urine Albumin (Reflex) 4+ A
(Neg - Trace)
09/12/24 12:55
09/12/24 12:55
Vital Signs
Initial and Last Documented VS:
Initial Vital Signs
Temp Pulse Resp BP Pulse Ox
98.3 F 80 18 110/61 99
09/12/24 12:24 09/12/24 12:24 09/12/24 12:24 09/12/24 12:24 09/12/24 12:24
Last Documented Vital Signs
Temp Pulse Resp BP Pulse Ox
98.3 F 80 18 105/60 99
09/12/24 12:24 09/12/24 12:24 09/12/24 14:00 09/12/24 14:00 09/12/24 14:07
MDM/Problems Addressed
Differential Diagnosis Includes:
78yoF presenting with a general decline in health x several weeks. C/o fatigue, weakness, bleeding around nephrostomy tube, and SOB. VSS. She is chronically ill appearing in no apparent distress. Lung sounds decreased at L lung base. Differential
diagnosis includes but is not limited to: failure to thrive, pleural effusion, pneumonia, UTI, symptomatic anemia
Initial ED plan: Labs obtained in triage. Hemoglobin 8.0 which is stable from 4 days ago. Creatinine at baseline. Potassium 3.2 which was replaced. Will check troponin, BNP, EKG, UA, and CT CAP without contrast due to allergy.
*Pulse Oximetry
SaO2: 99
Oxygen Mode of Delivery: Room air
Patient hypoxic: no (99%)
*Critical Care Note
Total Time (30-74mins, 75-104mins- exclusive of procedures): Not Applicable
Update Note
Update Note:
Imaging shows a moderate L pleural effusion which has increased in size from last week. There is also a consolidation to L lower lung and ascites. Nephrostomy tube in appropriate positioning. UA with 3+ leukocytes and many bacteria. IV Rocephin
ordered and patient admitted for further management.
ED Attending Note
-
Portions of this chart may have been created with voice recognition software.� Occasional wrong word or��sound alike� substitutions may have occurred due to the inherent limitations of voice recognition software.
Discharge Plan
Departure
Patient Disposition: Admit
Date of Disposition: 09/12/24
Time of Disposition: 16:01
Presentation/result/management discussed w/ accepting MD/DO: Hospitalist
Discharge Problem:
Pleural effusion on left, Urinary tract infection, Generalized weakness
Interventions
Interventions:
*Risk Screen - Suicide Last Done: 09/12/24 12:24
*General Assessment Last Done: 09/12/24 12:24
*Neglect/Abuse Screening Last Done: 09/12/24 12:24
*ED- Fall Risk Assessment Last Done: 09/12/24 13:48
*ED COVID-19 Vaccine History Last Done: 09/12/24 13:48
ED- Cardiac Assessment Last Done: 09/12/24 13:48
ED- Neurological Assessment Last Done: 09/12/24 13:48
ED- Pulmonary Assessment Last Done: 09/12/24 13:48
[2024-09-12 14:17] LABS: Magnesium 1.8 mg/dl (1.6-2.3)
[2024-09-12] MEDS: KCL 40 MEQ PO (14:29)
[2024-09-12 14:59] LABS: Troponin I < 0.012 ng/ml
[2024-09-12 15:14] LABS: Urine Character Slightly Cloudy (Clear)
[2024-09-12 15:39] LABS: Urine Red Blood Cell >100 /HPF (0-2); Urine Squamous Cell 0-2 /LPF (Few)
[2024-09-12] MEDS: ROCEPHIN 2000 MG IV (15:58)
--- NOTE | 2024-09-12 16:14 | HPS.HSE ---
Family Physician
-
Family Physician: Samson Davenport
Chief Complaint
-
generalized weakness/sob
History of Present Illness
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 patient stated progressively worsening sob, and weakness since the
discharge.She had a nephrostomy tube placed last month and has had ongoing bleeding around the site for the past few weeks.the stent was removed yesterday and urology stated that the bleeding is expected since the stent removal. patient complained
of cough occasional and bringing mucous up. Patient stated lightheadedness. Denied dizzy or syncope. Patient denied any fever, chills, chest pain or short of breath. She is complaining of lower back pain. She was nauseous this morning. Denies
diarrhea or constipation.
CT with pleural effusion, ascites. Admitting for further management.
Patient received cefepime, ceftriaxone, Doxy, potassium. Admitting for further management
Medical History
Past Medical History
Past Medical History: Reports Other
Additional Past Medical History:
Upper GI bleed
Bursitis of left hip
Anxiety
SVT
Iron deficiency anemia
Hypertension
Anemia
Osteoarthritis
GERD
Leiomyoma of uterus
Thyroid cancer
Gallbladder disease
Herniated disc
Pelvic mass
Asthma
Arthritis
Dizziness
IBS
Past Surgical History: Reports Other
Additional Past Surgical History:
Appendectomy
Thyroidectomy
Cholecystectomy
Cataract extraction
Left knee replacement
Right knee replacement
Paraesophageal hernia repair with mesh
Left ureteral stent
Social History
Tobacco: Non-smoker
Alcohol: None
Drug: None
Living: With Family
Family History
Family History: Not pertinent
Allergies / Home Medications
Allergies reflects when Allergies were last updated in [employer].
Home Medications with original date entered in [employer]
Allergies
Allergy/AdvReac Type Severity Reaction Status Date / Time
codeine (Codeine) Allergy vomiting Verified 09/04/24 20:32
erythromycin base Allergy vomiting Verified 09/04/24 20:32
(Erythromycin Base)
hydrocodone (Hydrocodone) Allergy swelling, Verified 09/04/24 20:32
vomiting
Iodinated Contrast Media (IV Allergy Swelling Verified 09/04/24 20:32
Dye, Iodine Containing
Contrast )
NSAIDS (Non-Steroidal Allergy INTERNAL Verified 09/04/24 20:32
Anti-Inflamma BLEEDING,
ANEMIA
oxycodone Allergy Vomiting Verified 09/04/24 20:32
Home Medications
montelukast 10 mg tablet 10 mg PO QPM Allergies 03/31/11
Align 24 1 cap PO DAILY Supplement 08/07/24
escitalopram oxalate 20 mg tablet 20 mg PO QPM Mental Health/Anxiety 08/07/24
[id number] 8 mg-folic 400 mcg-K 50 mcg-lutein 300 mcg tablet (Centrum Silver Women) 1 tab PO QPM Supplement 08/07/24
pantoprazole 40 mg tablet,delayed release 40 mg PO BID Gastrointestinal Issue 08/07/24
acetaminophen 325 mg tablet 650 mg (2 x 325 mg) PO Q4HPRN PRN mild pain #0 tabs 08/16/24
aspirin 81 mg tablet,delayed release 81 mg PO DAILY Blood clot prevention/tx #0 tabs 08/16/24
dicyclomine 10 mg capsule 10 mg PO BID PRN Muscle Spasms #0 caps 08/16/24
levothyroxine 200 mcg tablet 200 mcg PO DAILY @ 0600 Thyroid #30 tabs 08/16/24
alprazolam 0.25 mg tablet 0.25 mg PO Q8HPRN PRN anxiety 3 days #9 tabs 08/30/24
atorvastatin 40 mg tablet 40 mg PO QPM High cholesterol 30 days #30 tabs 08/30/24
loratadine 10 mg tablet 10 mg PO DAILY Allergies 30 days #30 tabs 08/30/24
tramadol 50 mg tablet 50 mg PO Q6HPRN PRN moderate pain 5 days #20 tabs 08/30/24
calcium polycarbophil 625 mg tablet (FiberCon) 1,250 mg PO BIDPRN PRN constipation 09/12/24
furosemide 20 mg tablet 20 mg PO DAILY Fluid Retention/Swelling 09/12/24
lidocaine 5 % topical patch 1 patch topical DAILY back pain 09/12/24
loperamide 2 mg capsule 2 mg PO Q6H PRN loose stools 09/12/24
metoprolol tartrate 50 mg tablet 25 mg PO BID Blood Pressure 09/12/24
Allergy/Medication List:
Allergies
Allergy/AdvReac Type Severity Reaction Status Date / Time
codeine (Codeine) Allergy vomiting Verified 09/04/24 20:32
erythromycin base Allergy vomiting Verified 09/04/24 20:32
(Erythromycin Base)
hydrocodone (Hydrocodone) Allergy swelling, Verified 09/04/24 20:32
vomiting
Iodinated Contrast Media (IV Allergy Swelling Verified 09/04/24 20:32
Dye, Iodine Containing
Contrast )
NSAIDS (Non-Steroidal Allergy INTERNAL Verified 09/04/24 20:32
Anti-Inflamma BLEEDING,
ANEMIA
oxycodone Allergy Vomiting Verified 09/04/24 20:32
Home Medications
montelukast 10 mg tablet 10 mg PO QPM Allergies 03/31/11
Align 24/ 1 cap PO DAILY Supplement 08/07/24
escitalopram oxalate 20 mg tablet 20 mg PO QPM Mental Health/Anxiety 08/07/24
jvfxglvh-[id number]-[id number] 8 mg-folic 400 mcg-K 50 mcg-lutein 300 mcg tablet (Centrum Silver Women) 1 tab PO QPM Supplement 08/07/24
pantoprazole 40 mg tablet,delayed release 40 mg PO BID Gastrointestinal Issue 08/07/24
acetaminophen 325 mg tablet 650 mg (2 x 325 mg) PO Q4HPRN PRN mild pain #0 tabs 08/16/24
aspirin 81 mg tablet,delayed release 81 mg PO DAILY Blood clot prevention/tx #0 tabs 08/16/24
dicyclomine 10 mg capsule 10 mg PO BID PRN Muscle Spasms #0 caps 08/16/24
levothyroxine 200 mcg tablet 200 mcg PO DAILY @ 0600 Thyroid #30 tabs 08/16/24
alprazolam 0.25 mg tablet 0.25 mg PO Q8HPRN PRN anxiety 3 days #9 tabs 08/30/24
atorvastatin 40 mg tablet 40 mg PO QPM High cholesterol 30 days #30 tabs 08/30/24
loratadine 10 mg tablet 10 mg PO DAILY Allergies 30 days #30 tabs 08/30/24
tramadol 50 mg tablet 50 mg PO Q6HPRN PRN moderate pain 5 days #20 tabs 08/30/24
calcium polycarbophil 625 mg tablet (FiberCon) 1,250 mg PO BIDPRN PRN constipation 09/12/24
furosemide 20 mg tablet 20 mg PO DAILY Fluid Retention/Swelling 09/12/24
lidocaine 5 % topical patch 1 patch topical DAILY back pain 09/12/24
loperamide 2 mg capsule 2 mg PO Q6H PRN loose stools 09/12/24
metoprolol tartrate 50 mg tablet 25 mg PO BID Blood Pressure 09/12/24
Review of Systems
-
Constitutional: Reports No Symptoms and Fatigue
EENT: Reports No Symptoms
Respiratory: Reports Cough and Trouble Breathing
Cardiac: Reports No Symptoms
Abdomen/GI: Reports Nausea
: Reports Bleeding and Dark Urine
Musculoskeletal: Reports No Symptoms
Skin: Reports No Symptoms
Neurological: Reports Weakness
Endocrine: Reports No Symptoms
Hematologic/Lymphatic: Reports No Symptoms
Psych: Reports No Symptoms
Physical Exam
Vital Signs
Vital Signs
Temp Pulse Resp BP Pulse Ox
98.3 F 80 18 105/60 99
09/12/24 12:24 09/12/24 12:24 09/12/24 14:00 09/12/24 14:00 09/12/24 14:07
Physical Exam
General: Well Developed, Well Nourished and No Apparent Distress
HEENT: NormoCephalic, Moist mucous membranes and Atraumatic
Respiratory: Clear
Cardiac: S1/S2 and Regular Rhythm; No Murmur or Rub
GI: Soft, Non Tender, Normal Bowel Sounds and Distended; No Organomegaly
Rectal: Deferred by Provider
Genito-urinary: Nephrostomy Tubes
Musculoskeletal: No Clubbing, No Cyanosis and Other (b/l LE edema)
Skin: No Rash
Neuro: AO x 3 and Nonfocal/grossly intact
Psych: Calm
Laboratory Results
-
09/12/24 12:55
09/12/24 12:55
Laboratory Results
Total Bilirubin 0.8 mg/dl (0.2-1.3) 09/12/24 12:55
AST 20 U/L (14-36) 09/12/24 12:55
ALT 11 U/L (0-35) 09/12/24 12:55
Alkaline Phosphatase 86 U/L (38-126) 09/12/24 12:55
Troponin I < 0.012 ng/ml 09/12/24 14:16
Data Reviewed
-
CT Scan: Report Reviewed by me
Lab Data: Labs Reviewed by me
Impression/Plan
-
#weakness/sob secondary to pleural effusion with large consolidation/ascites
- Chest abdomen pelvis CT with impression of Moderate left pleural effusion, significantly increased in comparison to recent prior abdomen CT with large left lower lobe consolidation.Small volume high attenuation density in the distal thoracic
esophagus, presumably food material with suspected small hiatal hernia.Prior cholecystectomy.Multiple abdominal and pelvic masses again seen, largest left-sided, at least 2 of which are slightly larger in size in comparison to recent prior study,
correlating with the known history of spindle cell malignancy.Percutaneous left nephrostomy catheter with distal pigtail portion noted to be centrally within the left renal collecting system, without significant left renal collecting system
dilatation.Moderate to large volume ascites again seen.
- IV cefepime and Doxy continue
-Lasix continued
- IR consulted for paracentesis and thoracentesis
- Pulmonology
# Urinary tract infection
- IV cefepime
# Bloody drainage from nephrostomy tube
# History of pelvic mass/spindle cell neoplasm and left nephrostomy tube
- Hemoglobin stable at 8.0
- Continue to monitor
- Oncology consulted
# Hypokalemia
# CKD stage IIIb
- K 3.2, creatinine 1.7
- Oral KCl in the ER
- BMP in a.m.
# Hypertension-continue Lopressor.
# Hypothyroidism-continue levothyroxine. History of thyroid surgery for thyroid cancer with history of radioablation-Currently on Levothyroxine 200 mcg daily.
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 Plan is for surgical procedure
at [facility] in the near future. Patient sees Dr. Shawn Gray
#History of BETINA and BSO at [facility] in 2015 for spindle cell lesion
# Depression-Continue alprazolam and escitalopram
# Hyperlipidemia
- Atorvastatin continued
# Right bundle branch block
# GERD-History of Hiatal Hernia Repair with mesh and posterior partial fundoplication by Dr. Franco 2018-continue PPI
# Chronic back pain with herniated disks
# IBS
- Bentyl continued
# DVT prophylaxis-SCDs
# Full code
--- NOTE | 2024-09-12 16:18 | W.PN.UPDATE ---
Update Note
Progress Note Update
This is an addendum to H&P written by GUSSET STITCHER Maria Esther Butler
I saw and examined the patient.
The GUSSET STITCHER's note was reviewed and I agree with the note.
Comment:
Ms. Faiza Ann is a 78 yo woman with hx thyroid CA s/p resection, leiomyoma of uterus s/p BSO 2015, recent CVA (MRI without acute changes but new dysarthria/ataxia suggestive right pontine stroke per Neurology), spindle cell neoplasm of smooth
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
She had hypercalcemia last visit treated with pamidronate.
Triage VS: T 98.3, P 80, RR 18, BP 110/61, SpO2 99%
On exam patient is conversant in no acute distress; intermittently with dry heaves (states related to mucus build up), Chest with decreased breath sounds left base; left nephrostomy tube with serosanguineous drainage around site, abdomen firm,
non-tender; LE b/l pitting edema.
LABS: WBC 9.3, Hg 8.0, PLT 222, Na 136, K+ 3.2, Cr 1.6, Glucose 106, Mag 1.8, liver enzymes WNL, Trolp < 0.012, BNP 1040
Chest/Abdomen/Pelvis CT
IMPRESSION:
Moderate left pleural effusion, significantly increased in comparison to recent prior abdomen CT with large left lower lobe consolidation.
Small volume high attenuation density in the distal thoracic esophagus, presumably food material with suspected small hiatal hernia.
Prior cholecystectomy.
Multiple abdominal and pelvic masses again seen, largest left-sided, at least 2 of which are slightly larger in size in comparison to recent prior study, correlating with the known history of spindle cell malignancy.
Percutaneous left nephrostomy catheter with distal pigtail portion noted to be centrally within the left renal collecting system, without significant left renal collecting system dilatation.
Moderate to large volume ascites again seen.
Moderate Pleural Effusion
Left lower lobe Pneumonia
-concern weakness related to LL pneumonia as large consolidation seen on CT. Will broaden antibiotics to Cefepime/Azithro given recent hospitalization and immunosuppressed state in setting of malignancy
-IR consult for thoracentesis
-Pulmonary consult
-Mucinex, Acapella
Ascites
-increase in size since prior (reported small)
-IR consult for paracentesis
Nausea/dry heaves related to mucus build up
-Mucinex as above
-IM Tigan PRN given prolonged Qtc
Hypokalemia
-repleted
-Mag 1.8
Spindle Cell Neoplasm of Smooth Muscle
Left Hydronephrosis s/p nephrostomy tube placement with stent removal yesterday
-patient was to follow up with Dr. Teixeira at [facility] for plan for surgery, unable to follow up yet
Oozing around left nephrostomy tube site - consult IR
Lower Extremity edema
-BNP 1040, Albumin 3.4
-with dry heaves and poor PO intake hold [employer] Lasix for now
-patient was not taking daily at home as results in incontinence
-TTE 05/23/24 with EF 69%, mild to moderate MR
Recent CVA
-[employer]MENT REPAIRER aspirin/statin
Leiomyoma of Uterus s/p BSO 2015
Thyroid CA s/p Resection
-[employer] EQUIPMENT REPAIRER Synthroid
SVT
-[employer] SU[employer] EQUIPMENT REPAIRER Metoprolol 25mg PO BID
GERD
-[employer] EQUIPMENT REPAIRER PPI
Remainder of plan per GUSSET STITCHER note
76 minutes spent on patient care
[2024-09-12 18:31] LABS: COVID-19 Antigen Negative (Negative)
[2024-09-12] MEDS: ULTRAM 50 MG PO (18:35)
[2024-09-12] MEDS: TYLENOL 650 MG PO (21:00)
[2024-09-12] MEDS: VIBRAMYCIN 100 MG PO (21:01)
[2024-09-12] MEDS: SINGULAIR 10 MG PO (21:01)
[2024-09-12] MEDS: MUCINEX 600 MG PO (21:01)
[2024-09-12] MEDS: LEXAPRO 20 MG PO (21:01)
[2024-09-12] MEDS: LOPRESSOR 25 MG PO (21:01)
[2024-09-12] MEDS: LIPITOR 40 MG PO (21:01)
[2024-09-12] MEDS: PROTONIX 40 MG PO (21:01)
[2024-09-12] MEDS: MAXIPIME 2000 MG IV (21:02)
[2024-09-12] MEDS: STERILE WATER FOR INJECTION 10 ML IV (21:02)
[2024-09-12 22:02] LABS: LDH 362 U/L (120-246)
[2024-09-13] VITALS (11 sets, daily range): BP systolic 66–111; BP diastolic 48–62; PULSE 67; O2SAT 96; BMI 30.9
[2024-09-13] MEDS: ULTRAM 50 MG PO ×2 (00:31→06:31)
[2024-09-13 00:53] LABS: Hematocrit 24.5 % (37.0-47.0)
[2024-09-13] MEDS: SYNTHROID 200 MCG PO (06:32)
[2024-09-13 07:57] LABS: Hematocrit 23.4 % (37.0-47.0); Hemoglobin 7.2 g/dL (12.0-16.0); Mean Corp Hgb Conc. 30.8 g/dL (33.0-37.0); Mean Corpuscular Volume 95.1 fL (81.0-99.0); Platelet Count 203 10^3/uL (130-400); Red Cell Dist. Width 17.4 % (11.5-14.5)
[2024-09-13] MEDS: STERILE WATER FOR INJECTION 10 ML IV (08:02)
[2024-09-13] MEDS: MAXIPIME 2000 MG IV (08:02)
[2024-09-13] MEDS: LIDOCAINE 4% PATCH 1 PATCH TOPICAL (08:02)
[2024-09-13] MEDS: MUCINEX 600 MG PO ×2 (08:03→20:32)
[2024-09-13] MEDS: VIBRAMYCIN 100 MG PO ×2 (08:03→20:32)
[2024-09-13] MEDS: CLARITIN 10 MG PO (08:03)
[2024-09-13] MEDS: PROTONIX 40 MG PO ×2 (08:03→20:32)
[2024-09-13] MEDS: ASPIR LOW (ENTERIC COATED) 81 MG PO (08:03)
[2024-09-13] MEDS: LOPRESSOR 25 MG PO (08:08)
[2024-09-13 08:18] LABS: Blood Urea Nitrogen 20 mg/dl (7-17); Calcium 8.8 mg/dl (8.4-10.2); Carbon Dioxide 28 mmol/L (22-30); Chloride 101 mmol/L (98-107); Estimated Creatinine Clearance 32 ml/min; Glucose 84 mg/dl (70-99); Potassium 3.5 mmol/L (3.5-5.1); Sodium 136 mmol/L (135-145); eGFR 35.23
--- NOTE | 2024-09-13 08:23 | CON.PUL ---
Consultation
Consultation Request
Date/Time Consultation Requested: 09/14/2024-7 AM
Date/Time Consultation Performed: 09/14/2024-8 AM
Requesting Provider: Hospitalist
Performing Provider: Dr. Swenson
Reason for Consultation: Shortness of breath
Medical History
-
Chief Complaint: Shortness of breath
History of Present Illness:
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
generalized weakness and shortness of breath found to have significant pleural effusion and ascites underwent thoracentesis/paracentesis-pulmonary asked to see for shortness of breath 09/14/2024. She feels much improved after
thoracentesis/paracentesis. She states that she has never had any lung problems in the past. She denies any current chest pain, pleurisy, productive cough, chest congestion, wheezing. She does not complain of any abdominal pain at this point or
increased swelling or focal weakness.
Past Medical History
Past Medical History: None (Hypertension. GI bleed. Iron deficiency anemia. SVT. Anxiety. GERD. Leiomyoma of uterus. Thyroid cancer. Asthma. Arthritis. IBS. Appendectomy. Thyroidectomy. Cholecystectomy. Cataract surgery. Bilateral
knee replacement. Left ureteral stent. Hernia repair.)
Social History
Tobacco: Non-smoker
Alcohol: None
Drug: None
Living: With Family
Occupational Exposures: No known asbestos exposure
Environmental Exposures: no known tuberculosis exposure
Family History
Family History: Reviewed & Not Pertinent
Allergies / Home Medications
Allergies
Allergy/AdvReac Type Severity Reaction Status Date / Time
codeine (Codeine) Allergy vomiting Verified 09/04/24 20:32
erythromycin base Allergy vomiting Verified 09/04/24 20:32
(Erythromycin Base)
hydrocodone (Hydrocodone) Allergy swelling, Verified 09/04/24 20:32
vomiting
Iodinated Contrast Media (IV Allergy Swelling Verified 09/04/24 20:32
Dye, Iodine Containing
Contrast )
NSAIDS (Non-Steroidal Allergy INTERNAL Verified 09/04/24 20:32
Anti-Inflamma BLEEDING,
ANEMIA
oxycodone Allergy Vomiting Verified 09/04/24 20:32
Home Medications
�Medication �Instructions �Recorded �Confirmed �Last Taken �Type
montelukast 10 mg tablet 10 mg PO QPM Allergies 03/31/11 09/12/24 06/29/24 History
Align 31/08 1 cap PO DAILY Supplement 08/07/24 09/12/24 Unknown History
escitalopram oxalate 20 mg tablet 20 mg PO QPM Mental Health/Anxiety 08/07/24 09/12/24 Unknown History
uiilhctm-hkmt-znhi 8 mg-folic 400 1 tab PO QPM Supplement 08/07/24 09/12/24 Unknown History
mcg-K 50 mcg-lutein 300 mcg tablet
(Centrum Silver Women)
pantoprazole 40 mg tablet,delayed 40 mg PO BID Gastrointestinal Issue 08/07/24 09/12/24 Unknown History
release
acetaminophen 325 mg tablet 650 mg (2 x 325 mg) PO Q4HPRN PRN 08/16/24 09/12/24 Unknown Rx
mild pain #0 tabs
aspirin 81 mg tablet,delayed 81 mg PO DAILY Blood clot 08/16/24 09/12/24 Unknown Rx
release prevention/tx #0 tabs
dicyclomine 10 mg capsule 10 mg PO BID PRN Muscle Spasms #0 08/16/24 09/12/24 06/29/24 Rx
caps
levothyroxine 200 mcg tablet 200 mcg PO DAILY @ 0600 Thyroid 08/16/24 09/12/24 Unknown Rx
#30 tabs
alprazolam 0.25 mg tablet 0.25 mg PO Q8HPRN PRN anxiety 3 08/30/24 09/12/24 Unknown Rx
days #9 tabs
atorvastatin 40 mg tablet 40 mg PO QPM High cholesterol 30 08/30/24 09/12/24 Unknown Rx
days #30 tabs
loratadine 10 mg tablet 10 mg PO DAILY Allergies 30 days 08/30/24 09/12/24 Unknown Rx
#30 tabs
tramadol 50 mg tablet 50 mg PO Q6HPRN PRN moderate pain 08/30/24 09/12/24 Unknown Rx
5 days #20 tabs
calcium polycarbophil 625 mg 1,250 mg PO BIDPRN PRN constipation 09/12/24 09/12/24 Unknown History
tablet (FiberCon)
furosemide 20 mg tablet 20 mg PO DAILY Fluid 09/12/24 09/12/24 Unknown History
Retention/Swelling
lidocaine 5 % topical patch 1 patch topical DAILY back pain 09/12/24 09/12/24 Unknown History
loperamide 2 mg capsule 2 mg PO Q6H PRN loose stools 09/12/24 09/12/24 Unknown History
metoprolol tartrate 50 mg tablet 25 mg PO BID Blood Pressure 09/12/24 09/12/24 Unknown History
Review of Systems
-
Unable to Obtain full review of systems at this time due to: Other (Per HPI)
Vitals / Labs / Diagnostic Testing
Vital Signs
Temp Pulse Resp BP Pulse Ox
98 F 70 18 106/55 97
09/12/24 23:46 09/13/24 08:08 09/12/24 23:46 09/13/24 08:08 09/12/24 23:46
Lab Data
09/13/24 07:20
09/13/24 07:20
Microbiology
09/12/24 18:00 Nasal Swab Influenza Types A & B (CHRISTIANO) - Final
Negative for Influenza A & B, NAAT
Negative results must be combined with clinical observations
and patient history.
Nucleic Acid Amplification test (NAAT)performed on the
[email or web address] platform.
Diagnostic Testing:
Physical Exam
-
Exam:
Well nourished and well-developed in no apparent distress
HEENT-atraumatic, normocephalic
Neck-supple, no JVD, no bruit
Heart-regular rate and rhythm-no murmurs, rubs or gallops
Chest with diminished breath sounds left greater than right base with rare crackles and no wheezes
Left posterior nephrostomy tube noted
Back-no tenderness
Abdomen-soft, nontender, nondistended, no hepatosplenomegaly
Extremities-no cyanosis, clubbing, trace edema
Integument-intact, no rashes, lesions or ecchymosis
Neurology-alert and oriented, nonfocal motor and sensory exam
Assessment
-
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
generalized weakness and shortness of breath found to have significant pleural effusion and ascites underwent thoracentesis/paracentesis-pulmonary asked to see for shortness of breath 09/14/2024.
Left pleural effusion
Ascites
Left lower lobe consolidation-suspected pneumonia versus atelectasis.
UTI
Recent nephrostomy tube
Pelvic mass/spindle cell neoplasm-plan was to follow-up with Dr. Teixeira at [facility] for surgery/debulking 09/18/2024
Anemia
Hypokalemia
Chronic renal failure
Conditions present prior to admission:
Hypertension.
GI bleed.
Iron deficiency anemia.
SVT.
Anxiety.
GERD.
Leiomyoma of uterus-status post BSO 2007 2015
Thyroid cancer.
Asthma.
Arthritis.
IBS.
Recent CVA
Appendectomy. Thyroidectomy. Cholecystectomy. Cataract surgery. Bilateral knee replacement. Left ureteral stent. Hernia repair.
Plan
Respiratory decompensation in this woman without known significant pulmonary disease with exception of asthma related to new onset left pleural effusion and left lower lung consolidation
Radiographs including chest x-rays, CTs of the chest and thoracentesis/paracentesis results are summarized below
Respiratory status improved after thoracentesis
Supplemental oxygen as needed
Incentive spirometry
Nebulizers if needed-history of asthma-currently no bronchospasm
Aspiration precautions
Thoracentesis performed 09/13/2024-respiratory status much improved, cultures no growth, cytology pending
Monitor for pleural fluid reaccumulation
Paracentesis performed 09/13/2024
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
Oncology evaluation-correspondence reviewed
Check cultures
Empiric antibiotics-ampicillin/sulbactam and doxycycline
Monitor renal function
Replace electrolytes
Urology following-correspondence reviewed
Left nephrostomy tube in place
DVT prophylaxis-on Lovenox
GI prophylaxis-on pantoprazole
Nutrition
Early mobilization
Reviewed with primary team as well as nursing
Diagnostic data:
Chest x-ray 10/23/2022-NAD
Chest x-ray 09/13/2024-residual trace left pleural effusion with possible atelectasis, no pneumothorax
CT abdomen and pelvis/-lung bases with some dependent subsegmental atelectasis, small volume ascites, numerous heterogeneous soft tissue masses of varying sizes scattered throughout the abdomen and pelvis suspicious for malignancy
CT chest abdomen and pelvis 09/12/2024-moderate size left pleural effusion with large left lower lobe consolidation, 4 mm nodule seen in the right lung, prior cholecystectomy, multiple abdominal and pelvic masses again seen, percutaneous left
nephrostomy catheter noted
Brain MRI 08/07/2024-no acute intracranial abnormalities
Lower extremity ultrasound 08/29/2024-no evidence for DVT
Paracentesis 09/13/2024-successful paracentesis with 650 mL of grossly bloody ascitic fluid removed, cytology pending
Thoracentesis 09/13/20246875-[id number], 950 mL liter grossly bloody pleural fluid removed-exudate, cytology pending
Data Reviewed
-
EKG: Report reviewed by me
Radiology: Image personally visualized and interpreted and Report reviewed by me
CT Scan: Image personally visualized and interpreted and Report reviewed by me
MRI: Report reviewed by me
Labs: Labs reviewed by me
Old Records: Reviewed
Total Time Spent with Patient (in minutes): 65
--- NOTE | 2024-09-13 08:30 | VNURNOTE ---
Chart reviewed. Patient is current with [facility]. Will continue to follow hospital course and DC plans.
--- NOTE | 2024-09-13 11:14 | W.PN.HOSP.TC ---
Today's Communication/Plan
-
awaiting fluid analysis
continue antibiotics
follow up further Pulmonary and Oncology recommendations
Assessment / Plan
Assessment / Plan
Ms. Faiza Ann is a 78 yo woman with hx thyroid CA s/p resection, leiomyoma of uterus s/p BSO 2016, recent CVA (MRI without acute changes but new dysarthria/ataxia suggestive right pontine stroke per Neurology), spindle cell neoplasm of smooth
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
She had hypercalcemia last visit treated with pamidronate.
Chest/Abdomen/Pelvis CT
IMPRESSION:
Moderate left pleural effusion, significantly increased in comparison to recent prior abdomen CT with large left lower lobe consolidation.
Small volume high attenuation density in the distal thoracic esophagus, presumably food material with suspected small hiatal hernia.
Prior cholecystectomy.
Multiple abdominal and pelvic masses again seen, largest left-sided, at least 2 of which are slightly larger in size in comparison to recent prior study, correlating with the known history of spindle cell malignancy.
Percutaneous left nephrostomy catheter with distal pigtail portion noted to be centrally within the left renal collecting system, without significant left renal collecting system dilatation.
Moderate to large volume ascites again seen.
Moderate Pleural Effusion
Left lower lobe Pneumonia
-concern weakness related to LL pneumonia as large consolidation seen on CT. Will broaden antibiotics to Cefepime/Azithro given recent hospitalization and immunosuppressed state in setting of malignancy
-s/p thoracentesis this AM - awaiting fluid analysis
-Pulmonary consult
-Mucinex, Acapella
Ascites
-increase in size since prior (reported small)
-s/p paracentesis this AM - awaiting fluid analysis
Nausea/dry heaves related to mucus build up
-Mucinex as above
-IM Tigan PRN given prolonged Qtc
Anemia
-mixed CINDY and anemia inflammation
-repeat Hg this afternoon, blood consent signed
Hypokalemia
-repleted
-Mag 1.8
Spindle Cell Neoplasm of Smooth Muscle
Left Hydronephrosis s/p nephrostomy tube placement with stent removal yesterday
-patient was to follow up with Dr. Teixeira at [facility] for plan for surgery, unable to follow up yet
-Oncology consult
Oozing around left nephrostomy tube site - may be 2/2 compression from mass, continued dressing changes
Lower Extremity edema
-BNP 1040, Albumin 3.4
-with dry heaves and poor PO intake hold MASTER ESTHETICIAN Lasix for now, likely resume tomorrow
-patient was not taking daily at home as results in incontinence
-TTE 05/23/24 with EF 69%, mild to moderate MR
-resume lasix tomorrow
Recent CVA
-diagnosed clinically, MRI without finding
-MASTER ESTHETICIAN aspirin/statin
Leiomyoma of Uterus s/p BSO 2015
Thyroid CA s/p Resection
-MASTER ESTHETICIAN Synthroid
SVT
-MASTER ESTHETICIAN Metoprolol 25mg PO BID
GERD
-MASTER ESTHETICIAN PPI
DVT PPx Lovenox subQ
FULL CODE
Anticipated Discharge: 24 - 48 hours
Subjective/Interval History
-
Date of Service: September 13, 2024
patient seen after she was down with IR
overall energy level and mucus production improved today
Objective Data
-
Labs:
Laboratory Results
09/13/24 09/13/24 09/13/24
00:29 07:20 12:00
WBC 9.6
Hgb 7.2 L Pending
Hct 24.5 L 23.4 L
Plt Count 203
Sodium 136
Potassium 3.5
Chloride 101
Carbon Dioxide 28
BUN 20 H
Creatinine 1.5 H
Glucose 84
Calcium 8.8
Vital Signs:
Vital Signs
Temp Pulse Resp BP Pulse Ox
98.0 F 71 16 103/61 95
09/13/24 10:54 09/13/24 10:54 09/13/24 10:54 09/13/24 10:54 09/13/24 10:54
I&O
09/12/24 09/13/24 09/14/24
06:59 06:59 06:59
Output Total 50 / 50
Balance -50 / -50
Review of Systems
-
History Source: Patient
All other systems: Reviewed and negative
Physical Exam
-
General: Well Developed, Well Nourished, No Apparent Distress and Comfortable
HEENT: Normocephalic, Atraumatic and Moist Mucous Membranes
Respiratory: Clear to Auscultation and Non Labored Respirations
Cardiac: Regular Rhythm and S1/S2; Negative Murmur, Rub or Gallop
GI: Nontender, Normal Bowel Sounds, Distended and Organomegaly
Musculoskeletal: No Clubbing, No Cyanosis and Other (LE swelling R > L)
Skin: Warm, Dry and Normal Turgor; Negative Rash
Neuro: AO x 3 and Nonfocal/Grossly Intact
Psych: Calm
Data Reviewed
-
Diagnostic Radiology: Report Reviewed by me
Labs: Labs Reviewed by me
[2024-09-13] MEDS: KCL 40 MEQ PO (11:25)
--- NOTE | 2024-09-13 11:40 | TRANSFER ---
rec's pt post thoracentesis and paracentesis at 1045 from IR. pt ambulated from stretcher to bed with RW with no issue. [facility] plan of care ongoing.
[2024-09-13 11:56] LABS: Body Fluid Second Tech SS
--- NOTE | 2024-09-13 12:36 | CON.ONC ---
Consultation
-
Date Consultation Requested: 09/13/24
Date Consultation Performed: 09/13/24
Requesting Provider: Dr. Elsy Grant
Performing Provider: Dr. Chelsea Allred
Reason for Consultation: spindle cell neoplasm
Impression
Impression
spindle cell neoplasm
ascites, f/u para cytology
left pleural effusion f/u thora cytology
recent pontine stroke (clinical dx see neuro notes) on ASA
hx leiomyosarcoma resected 2015
nephrostomy
multifactorial anemia -pleural effusion and ascites grossly bloody, renal insufficiency, malignancy -iron studies 08/17/2024 showed iron 25, TIBC 233, IS 10, ferritin 324. s/p 1U prbc 08/28
Plan
Plan
Has OP follow up with surgical oncology 09/18 to consider debulking surgery -Dr. Teixeira
follow cultures -abx per primary service
follow thora/para cytology
monitor for bleeding
avoid parenteral iron in the setting of suspected infection
transfuse Hgb <7 or as needed for sxs anemia
f/u pulmonary consult
encouraged OOB as tolerated -optimize performance status
Patient History
History of Present Illness
78 year old female with spindle cell neoplasm of smooth muscle and discharged to [facility] after hospitalization for possible CVA and hypercalcemia management. She was advised by her PCP to return to the ER after follow up evaluation yesterday due to
recurrent weakness and worsening shortness of breath. Her CT scan shows her known malignancy, worsening moderate left pleural effusion, and large volume ascites. WBC 9.6, Hgb 7.2g/dL, platelets 222,000, BUN 20, creatinine 1.5, calcium 9, nml LFTs,
LDH 362. UA with 4+ bld, >400RBC, leuk est, pyuria. urine culture pending. She underwent a paracentesis (650cc grossly bloody fluid drained) and thoracentesis (950cc grossly bloody fluid drained).
Recall that on 05/19/2024, this patient presented to [facility] with left flank pain and was found to have numerous retroperitoneal tumors. Biopsy at this time indicated smooth muscle neoplasm. A left uretal stent was placed at this time. A
follow up biopsy on 06/30/24 showed spindle cell neoplasm. Patient was being seen by [facility] but has transferred care to [facility] for her current diagnosis of spindle cell neoplasm of smooth cell. They are discussing the plan for
possible surgery. She is undergoing cardiac, neurology, and hematology clearances with plan to follow up with [facility] 09/18 to consider surgery.
Clinically, SOB has improved s/p thoracentesis. She denies fever, chills, cough, chest pain, or abdominal pain. She is using tramadol prn pain. She denies any overt bleeding or atypical bruising.
Daughter at bedside provided updates and questions answered.
Past-Medical/Surgical History
PMH/PSH thyroid cancer s/p resection, leiomyoma of the uterus s/p BSO in 2015
Social never smoker, denies ETOH or recreational drugs. Retired, .
Patient Medication
�Medication �Instructions �Recorded �Confirmed �Last Taken �Type
montelukast 10 mg tablet 10 mg PO QPM Allergies 03/31/11 09/12/24 06/29/24 History
Align 24 1 cap PO DAILY Supplement 08/07/24 09/12/24 Unknown History
escitalopram oxalate 20 mg tablet 20 mg PO QPM Mental Health/Anxiety 08/07/24 09/12/24 Unknown History
vtbappcr-fmyk-rdad 8 mg-folic 400 1 tab PO QPM Supplement 08/07/24 09/12/24 Unknown History
mcg-K 50 mcg-lutein 300 mcg tablet
(Centrum Silver Women)
pantoprazole 40 mg tablet,delayed 40 mg PO BID Gastrointestinal Issue 08/07/24 09/12/24 Unknown History
release
acetaminophen 325 mg tablet 650 mg (2 x 325 mg) PO Q4HPRN PRN 08/16/24 09/12/24 Unknown Rx
mild pain #0 tabs
aspirin 81 mg tablet,delayed 81 mg PO DAILY Blood clot 08/16/24 09/12/24 Unknown Rx
release prevention/tx #0 tabs
dicyclomine 10 mg capsule 10 mg PO BID PRN Muscle Spasms #0 08/16/24 09/12/24 06/29/24 Rx
caps
levothyroxine 200 mcg tablet 200 mcg PO DAILY @ 0600 Thyroid 08/16/24 09/12/24 Unknown Rx
#30 tabs
alprazolam 0.25 mg tablet 0.25 mg PO Q8HPRN PRN anxiety 3 08/30/24 09/12/24 Unknown Rx
days #9 tabs
atorvastatin 40 mg tablet 40 mg PO QPM High cholesterol 30 08/30/24 09/12/24 Unknown Rx
days #30 tabs
loratadine 10 mg tablet 10 mg PO DAILY Allergies 30 days 08/30/24 09/12/24 Unknown Rx
#30 tabs
tramadol 50 mg tablet 50 mg PO Q6HPRN PRN moderate pain 08/30/24 09/12/24 Unknown Rx
5 days #20 tabs
calcium polycarbophil 625 mg 1,250 mg PO BIDPRN PRN constipation 09/12/24 09/12/24 Unknown History
tablet (FiberCon)
furosemide 20 mg tablet 20 mg PO DAILY Fluid 09/12/24 09/12/24 Unknown History
Retention/Swelling
lidocaine 5 % topical patch 1 patch topical DAILY back pain 09/12/24 09/12/24 Unknown History
loperamide 2 mg capsule 2 mg PO Q6H PRN loose stools 09/12/24 09/12/24 Unknown History
metoprolol tartrate 50 mg tablet 25 mg PO BID Blood Pressure 09/12/24 09/12/24 Unknown History
Active Medications
Generic Name Dose Route Start Last Admin
Trade Name Freq PRN Reason Stop Dose Admin
Acetaminophen 650 mg 09/12/24 19:46 09/12/24 21:00
Acetaminophen 325 Mg Tablet PO 10/10/24 19:45 650 mg
Q4HPRN PRN Administration
mild pain/VILLAGRAN/temp> 100.4F
Alprazolam 0.25 mg 09/12/24 19:46
Alprazolam 0.25 Mg Tablet PO 10/10/24 19:45
Q8HPRN PRN
anxiety
Aspirin 81 mg 09/13/24 08:00 09/13/24 08:03
Aspirin 81 Mg (Enteric Coated) Tablet PO 10/11/24 07:59 81 mg
DAILY MARILYN Administration
Atorvastatin Calcium 40 mg 09/12/24 19:46 09/12/24 21:01
Atorvastatin (Lipitor) 40 Mg Tablet PO 10/10/24 19:45 40 mg
QPM MARILYN Administration
Bisacodyl 10 mg 09/12/24 19:46
Bisacodyl 10 Mg Rectal Suppository RECTAL 10/10/24 19:45
[id number] PRN
constipation
Cefepime HCl 2,000 mg 09/12/24 20:00 09/13/24 08:02
Cefepime Hcl 2,000 Mg/12.5 Ml Vial IV 2,000 mg
Q12H MARILYN Administration
Dicyclomine HCl 10 mg 09/12/24 19:46
Dicyclomine 10 Mg Capsule PO 10/10/24 19:45
BIDPRN PRN
Muscle Spasms
Doxycycline Hyclate 100 mg 09/12/24 20:00 09/13/24 08:03
Doxycycline 100 Mg Capsule PO 100 mg
Q12 MARILYN Administration
Enoxaparin Sodium 40 mg 09/13/24 18:00
Enoxaparin Sodium 40 Mg/0.4 Ml Syringe SC 10/11/24 17:59
QPM MARILYN
Escitalopram Oxalate 20 mg 09/12/24 19:46 09/12/24 21:01
Escitalopram 20 Mg Tablet PO 10/10/24 19:45 20 mg
QPM MARILYN Administration
Guaifenesin 600 mg 09/12/24 20:00 09/13/24 08:03
Guaifenesin 600 Mg Extended Release Tablet PO 10/10/24 19:59 600 mg
Q12 MARILYN Administration
Levothyroxine Sodium 200 mcg 09/13/24 06:00 09/13/24 06:32
Levothyroxine 200 Mcg Tablet PO 10/11/24 05:59 200 mcg
DAILY @ 0600 MARILYN Administration
Lidocaine 1 patch 09/13/24 08:00 09/13/24 08:02
Lidocaine 4% Topical Patch TOPICAL 10/11/24 07:59 1 patch
DAILY MARILYN Administration
Protocol
Loratadine 10 mg 09/13/24 08:00 09/13/24 08:03
Loratadine 10 Mg Tablet PO 10/11/24 07:59 10 mg
DAILY MARILYN Administration
Metoprolol Tartrate 25 mg 09/12/24 20:00 09/13/24 08:08
Metoprolol 25 Mg Regular Release Tablet PO 10/10/24 19:59 25 mg
BID MARILYN Administration
Montelukast Sodium 10 mg 09/12/24 19:46 09/12/24 21:01
Montelukast Sodium 10 Mg Tablet PO 10/10/24 19:45 10 mg
QPM MARILYN Administration
Pantoprazole Sodium 40 mg 09/12/24 20:00 09/13/24 08:03
Pantoprazole 40 Mg Delayed Release Tablet PO 10/10/24 19:59 40 mg
BID MARILYN Administration
Patch Removal 0 patch 09/13/24 20:00
Remove Lidocaine Patch REMOVE 10/11/24 19:59
DAILY@2000 MARILYN
Polyethylene Glycol 17 grams 09/12/24 19:46
Polyethylene Glycol Powder 17 Grams Packet PO 10/10/24 19:45
DAILYPRN PRN
constipation
Senna/Docusate Sodium 1 tablet 09/12/24 19:46
Docusate W/Senna (Anny-Colace) Tablet PO 10/10/24 19:45
BIDPRN PRN
constipation
Sodium Chloride 0 flush 09/12/24 18:00
Sodium Chloride 0.9% (Flush) Syringe IV 10/10/24 17:59
PER PROTOCOL MARILYN
Sterile Water 10 ml 09/12/24 20:00 09/13/24 08:02
Sterile Water For Injection 10 Ml Vial IV 10/10/24 19:59 10 ml
Q12H MARILYN Administration
Tramadol HCl 50 mg 09/12/24 18:12 09/13/24 06:31
Tramadol Hcl 50 Mg Tablet PO 10/10/24 18:11 50 mg
Q6HPRN PRN Administration
moderate pain
Trimethobenzamide HCl 200 mg 09/12/24 19:46
Trimethobenzamide 200 Mg/2 Ml Vial IM 10/10/24 19:45
Q6HPRN PRN
nausea/vomiting
Review of Systems
-
ROS is notable for HPI, otherwise negative
Physical Exam
-
General: No Apparent Distress
HEENT: Moist Mucous Membranes; Negative Jaundice
Cardiology: Normal Sinus Rhythm
Pulmonary: Rales (bibasilar)
GI: Soft
Extremities: Pulses Present; Negative Edema
Neurology: Non Focal
Skin: Warm
Psych: Calm
Labs
Lab Results
WBC 9.6 10^3/uL (4.8-10.8) 09/13/24 07:20
RBC 2.46 10^6/uL (4.20-5.40) L 09/13/24 07:20
Hgb 7.2 g/dL (12.0-16.0) L 09/13/24 07:20
Hct 23.4 % (37.0-47.0) L 09/13/24 07:20
MCV 95.1 fL (81.0-99.0) 09/13/24 07:20
MCH 29.3 pg (27.0-31.0) 09/13/24 07:20
MCHC 30.8 g/dL (33.0-37.0) L 09/13/24 07:20
RDW 17.4 % (11.5-14.5) H 09/13/24 07:20
Plt Count 203 10^3/uL (130-400) 09/13/24 07:20
MPV 10.6 fL (7.4-10.4) H 09/13/24 07:20
Abs Immat Gran (auto) 0.1 10^3/uL (0-0.05) H 09/12/24 12:55
Absolute Neuts (auto) 7.4 10^3/uL (1.4-6.5) H 09/12/24 12:55
Absolute Lymphs (auto) 1.1 10^3/uL (1.2-3.4) L 09/12/24 12:55
Absolute Monos (auto) 0.7 10^3/uL (0.1-0.6) H 09/12/24 12:55
Absolute Eos (auto) 0.1 10^3/uL (0-0.7) 09/12/24 12:55
Absolute Basos (auto) 0.1 10^3/uL (0-0.2) 09/12/24 12:55
Immature Gran % 0.5 % (0-0.5) 09/12/24 12:55
Neutrophils % 79.6 % (42.2-75.2) H 09/12/24 12:55
Lymphocytes % 11.5 % (20.5-51.1) L 09/12/24 12:55
Monocytes % 7.0 % (1.7-9.3) 09/12/24 12:55
Eosinophils % 0.9 % (0-6) 09/12/24 12:55
Basophils % 0.5 % (0-2) 09/12/24 12:55
Creatinine 1.5 mg/dL (0.6-1.0) H 09/13/24 07:20
Vital Signs
Vital Signs
Temp Pulse Resp BP Pulse Ox
98.0 F 71 16 103/61 95
09/13/24 10:54 09/13/24 10:54 09/13/24 10:54 09/13/24 10:54 09/13/24 10:54
[2024-09-13 12:44] LABS: Hemoglobin 7.5 g/dL (12.0-16.0)
[2024-09-13 13:27] LABS: Body Fluid Second Tech CW
--- NOTE | 2024-09-13 14:27 | W.PN.UPDATE ---
Addendum entered and electronically signed by Elsy Grant MD 09/13/24 15:15:
in setting of possible SBP, I will order IV Albumin. Given patient with history volume overload/LE swelling, will do half dose (50G) x 1 now. If she becomes hypotensive can give additional Albumin later today.
Original Note:
Update Note
Progress Note Update
Ascitic fluid with 359 PMN, concerning for SBP versus can be indicative of malignancy
-pleural fluid culture pending
-patient is on Augmentin and Doxycycline
Pleural fluid: exudative effusion likely as fluid protein ratio 0.67 (> 0.5) ; LDH ratio 0.9 (> 0.6)
-pleural fluid culture added on
Pulmonary and Oncology aware of these findings
patient updated
Enterococcus growing in Urine - discussing with Urology given nephrostomy tube. Patient states culture was from nephrostomy tube in ER.
[2024-09-13] MEDS: UNASYN IV ×2 (15:00→21:57)
[2024-09-13] MEDS: FLEXBUMIN 100 IV ×2 (15:54→17:19)
[2024-09-13] MEDS: TYLENOL 650 MG PO (16:05)
--- NOTE | 2024-09-13 16:15 | CM ---
Met with patient to obtain information for assessment. Patient stated that she normally lives with her spouse however right now he is in [facility] for rehab. Patient stated that her house is two stories but they have a first floor set up. She
described herself as independent, prior to her TIA. She was at [place] recently. She has supportive children who are assisting with making the house more accessible for her and creating a walk in shower as well as a first floor set up. Patient stated
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 She relayed that she has been the caregiver for her spouse. Patient has a very supportive daughter who drives when patient is unable and
takes her shopping. Patient is current with [facility]. He has a stair glide, walker and a w/c.
Patient has a prescription plan and uses, [facility] for all of her medications.
Patient's PCP is Robert Davenport.
Plan: Case management will continue to follow and assist with discharge planning. Patient would like to go to SNF and is hoping for [facility]. Will make referral.
[2024-09-13] MEDS: LOVENOX 40 MG SC (17:20)
[2024-09-13] MEDS: SINGULAIR 10 MG PO (17:20)
[2024-09-13] MEDS: LIPITOR 40 MG PO (17:20)
[2024-09-13] MEDS: LEXAPRO 20 MG PO (17:20)
--- NOTE | 2024-09-13 18:17 | W.PN.URO.CBU ---
Today's Communication / Plan
-
trwt uti consider hospice
Assessment / Plan
-
weaknesspos with metastatiic cancer increased abd ascites but also posible recent utifrom recent instrumenation of removal vis custocopy of jj stent aslo has lt perc tube
Diagnosis
-
Date of Service: September 13, 2024
-
Patient Diagnosis:
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 Now weak possibly due t acute uti possibly combination of advancing cancer
Post Op Day:
Subjective
-
weak
Objective
-
Vital Signs
Temp Pulse Resp BP Pulse Ox
98.2 F 69 16 94/55 96
09/13/24 16:16 09/13/24 16:16 09/13/24 16:16 09/13/24 16:16 09/13/24 16:16
Intake and Output
09/12/24 09/13/24 09/14/24
06:59 06:59 06:59
Intake Total 740 / 740
Output Total 50 / 50 75 / 75
Balance -50 / -50 665 / 665
Intake:
Oral fluids 420 / 420
IV piggybacks 320 / 320
Output:
Urinary Drain Output (Total) 50 / 50 75 / 75
Left Nephrostomy 50 / 50 75 / 75
Other:
Number of approximated SMALL 1 1
amounts of urine
Number of approximated MODERATE 1 2
amounts of urine
Laboratory Results
09/13/24 12:29
09/13/24 07:20
Review of Systems
-
Constitutional: Weight Loss and Fatigue
: Dysuria
Physical Exam
-
General - well developed, well nourished, no acute distress
Chest - clear bilaterally
Abdomen - soft, non-tender, positive bowel sounds, no CVAT, no incisional pain or distention
Genitalia - normal
Rectal - normal
Skin - warm & dry with no rash
Neuro - AOx3, no motor deficits
Extremities - no clubbing, no cyanosis, no edema
Incision - clean, dry
Dressing - clean, dry, intact
Care Review
Data Reviewed
Discussed with: Nursing
CT Scan: Image Pers Reviewed
[2024-09-13] MEDS: REMOVE LIDOCAINE PATCH 1 PATCH REMOVE (20:32)
[2024-09-13] MEDS: LOPRESSOR PO (20:46)
[2024-09-14] VITALS (7 sets, daily range): BP systolic 90–109; BP diastolic 51–61; BMI 30.1
[2024-09-14] MEDS: UNASYN IV ×4 (04:15→22:02)
[2024-09-14] MEDS: ULTRAM 50 MG PO ×2 (04:16→22:02)
[2024-09-14] MEDS: SYNTHROID 200 MCG PO (05:31)
[2024-09-14 08:12] LABS: Hematocrit 21.8 % (37.0-47.0); Hemoglobin 6.8 g/dL (12.0-16.0); Mean Corp Hgb Conc. 31.2 g/dL (33.0-37.0); Mean Corpuscular Volume 95.2 fL (81.0-99.0); Platelet Count 182 10^3/uL (130-400); Red Cell Dist. Width 17.8 % (11.5-14.5)
--- NOTE | 2024-09-14 08:27 | W.PN.ONC2 ---
Today's Communication / Plan
-
follow cytology
follow cultures
appreciate pulmonary and urology input
on abx
Impression
Impression
spindle cell neoplasm
ascites, f/u para cytology
left pleural effusion f/u thora cytology
concern for SBP
Enterococcus UTI
recent pontine stroke (clinical dx see neuro notes) on ASA
hx leiomyosarcoma resected 2015
nephrostomy s/p JJ stent removal 09/11
multifactorial anemia -pleural effusion and ascites grossly bloody, renal insufficiency, malignancy -iron studies 08/17/2024 showed iron 25, TIBC 233, IS 10, ferritin 324. s/p 1U prbc 08/28
Plan
Plan
Has OP follow up with surgical oncology 09/18 to consider debulking surgery -Dr. Teixeira
follow cultures -abx per primary service
follow thora/para cytology
monitor for bleeding
avoid parenteral iron in the setting of suspected infection
transfuse Hgb <7 or as needed for sxs anemia
encouraged OOB as tolerated -optimize performance status
Subjective/Objective
Subjective
no new complaints
Vital Signs:
Vital Signs
Temp Pulse Resp BP Pulse Ox
98.1 F 72 18 109/61 98
09/14/24 07:35 09/14/24 07:35 09/14/24 07:35 09/14/24 07:35 09/14/24 07:35
Lab Results:
Laboratory Data
WBC 9.9 10^3/uL (4.8-10.8) 09/14/24 07:50
Hgb 6.8 g/dL (12.0-16.0) L* 09/14/24 07:50
Plt Count 182 10^3/uL (130-400) 09/14/24 07:50
eGFR 35.23 09/13/24 07:20
Physical Exam
HEENT: Moist Mucous Membranes; No Jaundice
Pulmonary: Other (unlabored)
GI: Soft
Extremities: Pulses Present; No Edema
[2024-09-14 08:41] LABS: ALT (SGPT) < 10 U/L (0-35); AST (SGOT) 18 U/L (14-36); Albumin 3.4 g/dl (3.5-5.0); Alkaline Phosphatase 68 U/L (38-126); Blood Urea Nitrogen 19 mg/dl (7-17); Calcium 8.3 mg/dl (8.4-10.2); Carbon Dioxide 27 mmol/L (22-30); Chloride 103 mmol/L (98-107); Estimated Creatinine Clearance 32 ml/min; Glucose 90 mg/dl (70-99); Magnesium 1.7 mg/dl (1.6-2.3); Potassium 3.7 mmol/L (3.5-5.1); Sodium 136 mmol/L (135-145); Total Protein 5.4 g/dl (6.3-8.2); eGFR 35.23
[2024-09-14] MEDS: PROTONIX 40 MG PO ×2 (08:42→20:17)
[2024-09-14] MEDS: LOPRESSOR 25 MG PO (08:42)
[2024-09-14] MEDS: CLARITIN 10 MG PO (08:42)
[2024-09-14] MEDS: ASPIR LOW (ENTERIC COATED) 81 MG PO (08:42)
[2024-09-14] MEDS: MUCINEX 600 MG PO ×2 (08:42→20:17)
[2024-09-14] MEDS: VIBRAMYCIN 100 MG PO ×2 (08:42→20:17)
[2024-09-14] MEDS: LIDOCAINE 4% PATCH 1 PATCH TOPICAL (08:42)
--- NOTE | 2024-09-14 10:18 | W.PN.HOSP.TC ---
Today's Communication/Plan
-
antibiotics
awaiting cultures and cytology from pleural and ascitic fluid
appreciate consultants
PT recommending SNF - patient states she prefers [facility]
Assessment / Plan
Assessment / Plan
Ms. Faiza Ann is a 78 yo woman with hx thyroid CA s/p resection, leiomyoma of uterus s/p BSO 2016, recent CVA (MRI without acute changes but new dysarthria/ataxia suggestive right pontine stroke per Neurology), spindle cell neoplasm of smooth
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
She had hypercalcemia last visit treated with pamidronate.
Chest/Abdomen/Pelvis CT
IMPRESSION:
Moderate left pleural effusion, significantly increased in comparison to recent prior abdomen CT with large left lower lobe consolidation.
Small volume high attenuation density in the distal thoracic esophagus, presumably food material with suspected small hiatal hernia.
Prior cholecystectomy.
Multiple abdominal and pelvic masses again seen, largest left-sided, at least 2 of which are slightly larger in size in comparison to recent prior study, correlating with the known history of spindle cell malignancy.
Percutaneous left nephrostomy catheter with distal pigtail portion noted to be centrally within the left renal collecting system, without significant left renal collecting system dilatation.
Moderate to large volume ascites again seen.
Moderate Pleural Effusion
Left lower lobe Pneumonia
-concern weakness related to LL pneumonia as large consolidation seen on CT.
-continue antibiotics (now Augmentin/Doxy)
-s/p thoracentesis 09/13 showing exudative effusion (infection versus malignancy) - awaiting culture and cytology
-Pulmonary consult appreciated
-Mucinex, Acapella
Ascites
-increase in size since prior (reported small)
-s/p paracentesis 09/13 with over 250 PMN --> continue antibiotics as above
-s/p IV Albumin infusion on 09/13 post para
-awaiting culture and cytology
UTI with enterococcus in urine and recent instrumentation/nephrostomy tube placement
-IV Unasyn, awaiting final cultures
-appreciate Urology
Nausea/dry heaves related to mucus build up
-Mucinex as above
-IM Tigan PRN given prolonged Qtc
Acute on Chronic Anemia
-mixed CINDY and anemia inflammation
-transfuse 1 unit PRBC today
Hypokalemia
-repleted
-Mag 1.8
Spindle Cell Neoplasm of Smooth Muscle
Left Hydronephrosis s/p nephrostomy tube placement with stent removal yesterday
-patient was to follow up with Dr. Teixeira at [facility] for plan for surgery, unable to follow up yet
-Oncology consult appreciated
Oozing around left nephrostomy tube site - may be 2/2 compression from mass, continued dressing changes
Lower Extremity edema
-BNP 1040, Albumin 3.4
-with dry heaves and poor PO intake hold DERMATOLOGY PHYSICIAN Lasix for now, likely resume tomorrow
-patient was not taking daily at home as results in incontinence
-TTE 05/23/24 with EF 69%, mild to moderate MR
-resume lasix tomorrow if craetinine stable
Recent CVA
-diagnosed clinically, MRI without finding
-DERMATOLOGY PHYSICIAN aspirin/statin
Leiomyoma of Uterus s/p BSO 2015
Thyroid CA s/p Resection
-DERMATOLOGY PHYSICIAN Synthroid
SVT
-DERMATOLOGY PHYSICIAN Metoprolol 25mg PO BID
GERD
-DERMATOLOGY PHYSICIAN PPI
DVT PPx Lovenox subQ
FULL CODE
Anticipated Discharge: 24 - 48 hours
Subjective/Interval History
-
Date of Service: September 14, 2024
had some more mucus this morning, feels a bit weak
no fevers/chills
Objective Data
-
Labs:
Laboratory Results
09/14/24
07:50
WBC 9.9
Hgb 6.8 L*
Hct 21.8 L
Plt Count 182
Sodium 136
Potassium 3.7
Chloride 103
Carbon Dioxide 27
BUN 19 H
Creatinine 1.5 H
Glucose 90
Calcium 8.3 L
Total Bilirubin 0.8
AST 18
ALT < 10
Alkaline Phosphatase 68
Vital Signs:
Vital Signs
Temp Pulse Resp BP Pulse Ox
98.1 F 72 18 109/61 98
09/14/24 07:35 09/14/24 07:35 09/14/24 07:35 09/14/24 07:35 09/14/24 07:35
I&O
09/13/24 09/14/24 09/15/24
06:59 06:59 06:59
Intake Total 1460 / 1460 480 / 480
Output Total 50 / 50 125 / 125
Balance -50 / -50 1335 / 1335 480 / 480
Review of Systems
-
History Source: Patient
All other systems: Reviewed and negative
Physical Exam
-
General: Well Developed, Well Nourished, No Apparent Distress and Comfortable
HEENT: Normocephalic, Atraumatic and Moist Mucous Membranes
Respiratory: Clear to Auscultation and Non Labored Respirations
Cardiac: Regular Rhythm and S1/S2; Negative Murmur, Rub or Gallop
GI: Nontender, Normal Bowel Sounds, Distended and Organomegaly
Musculoskeletal: No Clubbing, No Cyanosis and Other (LE swelling R > L - chronic )
Skin: Warm, Dry and Normal Turgor; Negative Rash
Neuro: AO x 3 and Nonfocal/Grossly Intact
Psych: Calm
Data Reviewed
-
Diagnostic Radiology: Report Reviewed by me
Labs: Labs Reviewed by me
--- NOTE | 2024-09-14 12:19 | W.PN.URO.CBU ---
Today's Communication / Plan
-
no gu intervention
Assessment / Plan
-
weaknesspos with metastatiic cancer increased abd ascites but also posible recent utifrom recent instrumenation of removal vis custocopy of jj stent aslo has lt perc tube
Diagnosis
-
Date of Service: September 14, 2024
-
Patient Diagnosis:
Post Op Day:
Patient Diagnosis:
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 Now weak possibly due t acute uti possibly combination of advancing cancer
Post Op Day:
Subjective
-
weak
Objective
-
Vital Signs
Temp Pulse Resp BP Pulse Ox
98.1 F 68 18 97/57 97
09/14/24 11:18 09/14/24 11:18 09/14/24 11:18 09/14/24 11:18 09/14/24 11:18
Intake and Output
09/13/24 09/14/24 09/15/24
06:59 06:59 06:59
Intake Total 1460 / 1460 480 / 480
Output Total 50 / 50 125 / 125
Balance -50 / -50 1335 / 1335 480 / 480
Intake:
Oral fluids 900 / 900 480 / 480
IV piggybacks 560 / 560
Output:
Urinary Drain Output (Total) 50 / 50 125 / 125
Left Nephrostomy 50 / 50 125 / 125
Other:
Number of approximated SMALL 1 1
amounts of urine
Number of approximated MODERATE 1 3 1
amounts of urine
Laboratory Results
09/14/24 07:50
09/14/24 07:50
Review of Systems
-
Constitutional: Fatigue
Cardiac: No Symptoms
Physical Exam
-
General - well developed, well nourished, no acute distress
Chest - clear bilaterally
Abdomen - soft, non-tender, positive bowel sounds, no CVAT, no incisional pain or distention
Genitalia - normal
Rectal - normal
Skin - warm & dry with no rash
Neuro - AOx3, no motor deficits
Extremities - no clubbing, no cyanosis, no edema
Incision - clean, dry
Dressing - clean, dry, intact
Counseling
-
no gu changes
Care Review
Data Reviewed
Discussed with: Nursing
[2024-09-14] MEDS: LEXAPRO 20 MG PO (17:54)
[2024-09-14] MEDS: SINGULAIR 10 MG PO (17:54)
[2024-09-14] MEDS: LOVENOX 40 MG SC (17:54)
[2024-09-14] MEDS: LIPITOR 40 MG PO (17:54)
[2024-09-14] MEDS: LOPRESSOR PO (20:11)
[2024-09-14] MEDS: TYLENOL 650 MG PO (20:17)
[2024-09-14] MEDS: REMOVE LIDOCAINE PATCH 1 PATCH REMOVE (20:18)
[2024-09-15] MEDS: XANAX 0.25 MG PO (01:57)
[2024-09-15] MEDS: UNASYN IV ×4 (04:28→21:22)
[2024-09-15 06:00] VITALS: BMI 30.1
[2024-09-15 07:15] VITALS: BP 113/58
[2024-09-15] MEDS: LIDOCAINE 4% PATCH 1 PATCH TOPICAL (08:05)
[2024-09-15] MEDS: MUCINEX 600 MG PO ×2 (08:06→20:14)
[2024-09-15] MEDS: SYNTHROID 200 MCG PO (08:06)
[2024-09-15] MEDS: PROTONIX 40 MG PO ×2 (08:06→20:14)
[2024-09-15] MEDS: LOPRESSOR 25 MG PO ×2 (08:06→20:13)
[2024-09-15] MEDS: CLARITIN 10 MG PO (08:06)
[2024-09-15] MEDS: ASPIR LOW (ENTERIC COATED) 81 MG PO (08:06)
[2024-09-15] MEDS: VIBRAMYCIN 100 MG PO ×2 (08:06→20:13)
[2024-09-15 08:37] LABS: Hematocrit 23.6 % (37.0-47.0); Hemoglobin 7.4 g/dL (12.0-16.0); Mean Corp Hgb Conc. 31.4 g/dL (33.0-37.0); Mean Corpuscular Volume 91.1 fL (81.0-99.0); Platelet Count 120 10^3/uL (130-400); Red Cell Dist. Width 18.9 % (11.5-14.5)
[2024-09-15 08:44] LABS: Blood Urea Nitrogen 17 mg/dl (7-17); Calcium 7.9 mg/dl (8.4-10.2); Carbon Dioxide 25 mmol/L (22-30); Chloride 104 mmol/L (98-107); Estimated Creatinine Clearance 32 ml/min; Glucose 92 mg/dl (70-99); Potassium 3.3 mmol/L (3.5-5.1); Sodium 136 mmol/L (135-145); eGFR 35.23
[2024-09-15] MEDS: KCL 40 MEQ PO (10:13)
--- NOTE | 2024-09-15 10:15 | W.PN.ONC2 ---
Documented by User: [email or web address] Hawthorne 09/15/24 16:05
Today's Communication / Plan
-
optimize PS, discharge planning
Impression
Impression
spindle cell neoplasm
ascites, 09/13 cytology negative for malignancy, cx negative to date
left pleural effusion, 09/13 cytology negative for malignancy
LLL consolidation, possible PNA
Enterococcus UTI
recent pontine stroke (clinical dx see neuro notes) on ASA
hx leiomyosarcoma resected 2015
nephrostomy s/p JJ stent removal 09/11, L perc nephrostomy -appreciate urology input
multifactorial anemia -pleural effusion and ascites grossly bloody, renal insufficiency, malignancy -iron studies 08/17/2024 showed iron 25, TIBC 233, IS 10, ferritin 324. s/p 1U prbc 08/28
Plan
Plan
Pt tells me that surgery with Dr. Teixeira has been canceled -I will ask Dr. Lugo to weigh in on this case
follow cultures -abx per primary service
both thora/para cytology is negative for malignancy
monitor for bleeding
avoid parenteral iron in the setting of infection
transfuse Hgb <7 or as needed for sxs anemia
encouraged OOB as tolerated -optimize performance status
Subjective/Objective
Subjective
non productive cough
using lidocaine patch and tramadol prn pain
denies overt bleeding
Vital Signs:
Vital Signs
Temp Pulse Resp BP Pulse Ox
97.7 F 79 16 113/58 98
09/15/24 07:15 09/15/24 08:06 09/15/24 07:15 09/15/24 08:06 09/15/24 07:15
Lab Results:
Laboratory Data
WBC 9.9 10^3/uL (4.8-10.8) 09/15/24 07:23
Hgb 7.4 g/dL (12.0-16.0) L 09/15/24 07:23
Plt Count 120 10^3/uL (130-400) L D 09/15/24 07:23
eGFR 35.23 09/15/24 07:23
Physical Exam
HEENT: Moist Mucous Membranes; No Jaundice
Pulmonary: unlabored
GI: Soft
nephrostomy
Extremities: Pulses Present; No Edema

Documented by User: Norberto Estrada MD 09/15/24 17:05
Plan
Plan
Pt tells me that surgery with Dr. Teixeira has been canceled -I will ask Dr. Lugo to weigh in on this case
follow cultures -abx per primary service
both thora/para cytology is negative for malignancy
monitor for bleeding
avoid parenteral iron in the setting of infection
transfuse Hgb <7 or as needed for sxs anemia
encouraged OOB as tolerated -optimize performance status
Attending: Agree with note as per nurse practitioner. The precise plan at this point is not known to me. The patient states that her gynecologic oncologist at [facility] told her that the plans for surgery are off, but no other
plans have been made. As far as I can see, this seems to be a recurrence of either a leiomyoma or leiomyosarcoma that was resected several years ago. I am uncertain what role further surgery may play, given the multitude of locations. It still
seems to be a fairly low-grade tumor. Perhaps further molecular studies could be performed to see whether any form of targeted therapy may be of benefit.
--- NOTE | 2024-09-15 10:55 | W.PN.PUL.V3 ---
Today's Communication / Plan
-
Pleural fluid and ascites, negative for malignancy.
Told patient pleural fluid might reaccumulate and repeat thoracenteses may be needed.
For now. Respiratory status stable-pulmonary will sign off-please call with questions
Assessment
-
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
generalized weakness and shortness of breath found to have significant pleural effusion and ascites underwent thoracentesis/paracentesis-pulmonary asked to see for shortness of breath 09/14/2024.
Left pleural effusion
Ascites
Left lower lobe consolidation-suspected pneumonia versus atelectasis.
UTI
Recent nephrostomy tube
Pelvic mass/spindle cell neoplasm-plan was to follow-up with Dr. Teixeira at [facility] for surgery/debulking 09/18/2024
Anemia
Hypokalemia
Chronic renal failure
Conditions present prior to admission:
Hypertension.
GI bleed.
Iron deficiency anemia.
SVT.
Anxiety.
GERD.
Leiomyoma of uterus-status post BSO 2007 2015
Thyroid cancer.
Asthma.
Arthritis.
IBS.
Recent CVA
Appendectomy. Thyroidectomy. Cholecystectomy. Cataract surgery. Bilateral knee replacement. Left ureteral stent. Hernia repair.
Plan
Respiratory decompensation in this woman without known significant pulmonary disease with exception of asthma related to new onset left pleural effusion and left lower lung consolidation
Radiographs including chest x-rays, CTs of the chest and thoracentesis/paracentesis results are summarized below
Respiratory status improved after thoracentesis
Supplemental oxygen as needed-currently on room air-98% saturation
Incentive spirometry
Nebulizers if needed-history of asthma-currently no bronchospasm
Aspiration precautions
Thoracentesis performed 09/13/2024-respiratory status much improved, cultures no growth, cytology-negative
Monitor for pleural fluid reaccumulation.
Told patient that pleural fluid might reaccumulate and repeat thoracentesis may be required and if fairly frequent thoracentesis is required we have Pleurx/asept catheters
Paracentesis performed 09/13/2024-negative cultures and negative for malignancy
Recent pelvic mass biopsy consistent with spindle cell smooth muscle cancer for potential debulking procedure at [facility]
Oncology evaluation-correspondence reviewed
Check cultures
Empiric antibiotics-ampicillin/sulbactam and doxycycline
Monitor renal function
Replace electrolytes
Urology following-correspondence reviewed
Left nephrostomy tube in place
DVT prophylaxis-on Lovenox
GI prophylaxis-on pantoprazole
Nutrition
Early mobilization.
Respiratory status currently stable-pulmonary will sign off-please call with questions
Reviewed with primary team as well as nursing
Diagnostic data:
Chest x-ray 10/23/2022-NAD
Chest x-ray 09/13/2024-residual trace left pleural effusion with possible atelectasis, no pneumothorax
CT abdomen and pelvis/-lung bases with some dependent subsegmental atelectasis, small volume ascites, numerous heterogeneous soft tissue masses of varying sizes scattered throughout the abdomen and pelvis suspicious for malignancy
CT chest abdomen and pelvis 09/12/2024-moderate size left pleural effusion with large left lower lobe consolidation, 4 mm nodule seen in the right lung, prior cholecystectomy, multiple abdominal and pelvic masses again seen, percutaneous left
nephrostomy catheter noted
Brain MRI 08/07/2024-no acute intracranial abnormalities
Lower extremity ultrasound 08/29/2024-no evidence for DVT
Paracentesis 09/13/2024-successful paracentesis with 650 mL of grossly bloody ascitic fluid removed, cytology pending
Thoracentesis 09/13/[id number], 950 mL liter grossly bloody pleural fluid removed-exudate, cytology pending
Subjective Data
-
Date of Service:
Date of Service: September 15, 2024
Chief Complaint: Pulmonary Follow Up and Dyspnea Follow Up
Subjective:
feels better after thoracentesis, some shortness of breath, no chest pain, productive cough, abdominal pain
Review of Systems
General: Other (per HPI)
Objective Data
Data Reviewed
Vital Signs / I&O:
Vital Signs
Temp Pulse Resp BP Pulse Ox
97.7 F 79 16 113/58 98
09/15/24 07:15 09/15/24 08:06 09/15/24 07:15 09/15/24 08:06 09/15/24 07:15
Intake and Output
09/14/24 09/15/24 09/16/24
06:59 06:59 06:59
Intake Total 1460 / 1460 2059 / 2059
Output Total 125 / 125 100 / 100
Balance 1335 / 1335 1960 / 1960
SaO2: 98
Physical Exam
General: Respiratory Distress (n) and Comfortable
HEENT: Normocephalic, Anicteric and Moist Mucous Membranes
Cardiovascular: Regular Rhythm
Respiratory: Clear ( diminished at the left base), Crackles ( left greater than right), Non-Labored Respirations, Accessory Resp Muscle Use (n) and Stridor (n)
GI: Soft, Non Distended and Non Tender
Neurology: Awake, Oriented and No Motor Deficits
Skin: Warm, Good Color, Cyanosis (n) and Jaundice (n)
Labs/Micro/Reports
Lab Data
09/15/24 07:23
09/15/24 07:23
Microbiology
09/12/24 14:15 Urine Urine Culture - Final
Enterococcus faecalis
09/13/24 09:48 Pleural Fluid Body Fluid Culture - Preliminary
No Growth After 18-24 Hours
09/13/24 09:48 Pleural Fluid Gram Stain - Preliminary
09/13/24 10:10 Peritoneal Fluid Body Fluid Culture - Preliminary
No Growth After 18-24 Hours
09/13/24 10:10 Peritoneal Fluid Gram Stain - Preliminary
09/13/24 00:29 Nose MRSA Screen - Final
No Methicillin Resistant Staphylococcus aureus isolated.
09/13/24 09:48 Pleural Fluid Fungal Culture - Preliminary
Culture in progress.
Positive cultures are reported as soon as detected.
Final report to follow in four to five weeks.
09/12/24 18:00 Nasal Swab Influenza Types A & B (CHRISTIANO) - Final
Negative for Influenza A & B, NAAT
Negative results must be combined with clinical observations
and patient history.
Nucleic Acid Amplification test (NAAT)performed on the
[employer] platform.
[2024-09-15] MEDS: TIGAN 200 MG IM (11:29)
[2024-09-15] MEDS: LASIX 20 MG PO (11:32)
--- NOTE | 2024-09-15 12:29 | W.PN.HOSP.TC ---
Today's Communication/Plan
-
resume oral Lasix
continue Unasyn/Doxy
PT/OT, eventual SNF, possibly tomorrow
appreciate consultants
Assessment / Plan
Assessment / Plan
Ms. Faiza Ann is a 78 yo woman with hx thyroid CA s/p resection, leiomyoma of uterus s/p BSO 2015, recent CVA (MRI without acute changes but new dysarthria/ataxia suggestive right pontine stroke per Neurology), spindle cell neoplasm of smooth
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
She had hypercalcemia last visit treated with pamidronate.
Chest/Abdomen/Pelvis CT
IMPRESSION:
Moderate left pleural effusion, significantly increased in comparison to recent prior abdomen CT with large left lower lobe consolidation.
Small volume high attenuation density in the distal thoracic esophagus, presumably food material with suspected small hiatal hernia.
Prior cholecystectomy.
Multiple abdominal and pelvic masses again seen, largest left-sided, at least 2 of which are slightly larger in size in comparison to recent prior study, correlating with the known history of spindle cell malignancy.
Percutaneous left nephrostomy catheter with distal pigtail portion noted to be centrally within the left renal collecting system, without significant left renal collecting system dilatation.
Moderate to large volume ascites again seen.
Moderate Pleural Effusion
Left lower lobe Pneumonia
-concern weakness related to LL pneumonia as large consolidation seen on CT.
-continue antibiotics (now Augmentin/Doxy - day 4 for PNA (3 for UTI)
-s/p thoracentesis 09/13 showing exudative effusion (infection versus malignancy)
-Pulmonary consult appreciated
-Mucinex, Acapella
-cytology negative
-culture without growth
Ascites
-increase in size since prior (reported small)
-s/p paracentesis 09/13 with over 250 PMN --> continue antibiotics as above
-s/p IV Albumin infusion on 09/13 post para
-cytology negative
-culture without growth
UTI with enterococcus in urine and recent instrumentation/nephrostomy tube placement
-IV Unasyn
-appreciate Urology
Nausea/dry heaves related to mucus build up
-Mucinex as above
-IM Tigan PRN given prolonged Qtc
Acute on Chronic Anemia
-mixed CINDY and anemia inflammation
-s/p 1 unit PRBC on 09/14
Hypokalemia
-repleted
-Mag 1.8
Spindle Cell Neoplasm of Smooth Muscle
Left Hydronephrosis s/p nephrostomy tube placement with stent removal yesterday
-patient was to follow up with Dr. Teixeira at [facility] for plan for surgery,
-Oncology consult appreciated
-cytology negative for ascitic and pleural fluid
Oozing around left nephrostomy tube site - may be 2/2 compression from mass, continued dressing changes
Lower Extremity edema
-BNP 1040, Albumin 3.4
-with dry heaves and poor PO intake hold OFFICE COPY SELECTOR Lasix for now, likely resume tomorrow
-patient was not taking daily at home as results in incontinence
-TTE 05/23/24 with EF 69%, mild to moderate MR
-resume lasix today
Recent CVA
-diagnosed clinically, MRI without finding
-OFFICE COPY SELECTOR aspirin/statin
Leiomyoma of Uterus s/p BSO 2015
Thyroid CA s/p Resection
-OFFICE COPY SELECTOR Synthroid
SVT
-OFFICE COPY SELECTOR Metoprolol 25mg PO BID
GERD
-OFFICE COPY SELECTOR PPI
DVT PPx Lovenox subQ
FULL CODE
Anticipated Discharge: 24 - 48 hours
Subjective/Interval History
-
Date of Service: September 15, 2024
she feels a bit fatigued today
had extra mucus production overnight
Objective Data
-
Labs:
Laboratory Results
09/15/24
07:23
WBC 9.9
Hgb 7.4 L
Hct 23.6 L
Plt Count 120 L D
Sodium 136
Potassium 3.3 L
Chloride 104
Carbon Dioxide 25
BUN 17
Creatinine 1.5 H
Glucose 92
Calcium 7.9 L
Vital Signs:
Vital Signs
Temp Pulse Resp BP Pulse Ox
97.7 F 67 16 127/60 98
09/15/24 07:15 09/15/24 11:32 09/15/24 07:15 09/15/24 11:32 09/15/24 10:55
I&O
09/14/24 09/15/24 09/16/24
06:59 06:59 06:59
Intake Total 1460 / 1460 2059
Output Total 125 / 125 100 / 100
Balance 1335 / 1335 1959 / 1959
Review of Systems
-
History Source: Patient
All other systems: Reviewed and negative
Physical Exam
-
General: Well Developed, Well Nourished, No Apparent Distress and Comfortable
HEENT: Normocephalic, Atraumatic and Moist Mucous Membranes
Respiratory: Clear to Auscultation and Non Labored Respirations
Cardiac: Regular Rhythm and S1/S2; Negative Murmur, Rub or Gallop
GI: Nontender, Normal Bowel Sounds, Distended and Organomegaly
Musculoskeletal: No Clubbing, No Cyanosis and Other (LE swelling R > L - chronic )
Skin: Warm, Dry and Normal Turgor; Negative Rash
Neuro: AO x 3 and Nonfocal/Grossly Intact
Psych: Calm
Data Reviewed
-
Diagnostic Radiology: Report Reviewed by me
Labs: Labs Reviewed by me
[2024-09-15] MEDS: ULTRAM 50 MG PO (13:56)
[2024-09-15 15:10] VITALS: BP 101/67
[2024-09-15] MEDS: LIPITOR 40 MG PO (17:47)
[2024-09-15] MEDS: LOVENOX 40 MG SC (17:47)
[2024-09-15] MEDS: LEXAPRO 20 MG PO (17:47)
[2024-09-15] MEDS: SINGULAIR 10 MG PO (17:48)
[2024-09-15] MEDS: REMOVE LIDOCAINE PATCH 1 PATCH REMOVE (20:14)
[2024-09-15] MEDS: NON-FORMULARY ITEM 1 UNIT INH (20:15)
[2024-09-15 23:38] VITALS: BP 93/47
[2024-09-16 00:52] VITALS: BP 93/51
[2024-09-16] MEDS: TIGAN 200 MG IM ×2 (00:57→21:07)
[2024-09-16] MEDS: UNASYN IV ×2 (03:47→09:24)
[2024-09-16 05:15] VITALS: BMI 30.4
[2024-09-16] MEDS: SYNTHROID 200 MCG PO (05:25)
[2024-09-16 07:52] VITALS: BP 105/52
[2024-09-16 08:02] LABS: Hematocrit 23.2 % (37.0-47.0); Hemoglobin 7.3 g/dL (12.0-16.0); Mean Corp Hgb Conc. 31.5 g/dL (33.0-37.0); Mean Corpuscular Volume 92.8 fL (81.0-99.0); Platelet Count 173 10^3/uL (130-400); Red Cell Dist. Width 19.2 % (11.5-14.5)
[2024-09-16 08:28] LABS: Blood Urea Nitrogen 17 mg/dl (7-17); Calcium 7.5 mg/dl (8.4-10.2); Carbon Dioxide 27 mmol/L (22-30); Chloride 104 mmol/L (98-107); Estimated Creatinine Clearance 32 ml/min; Glucose 93 mg/dl (70-99); Magnesium 1.6 mg/dl (1.6-2.3); Potassium 3.8 mmol/L (3.5-5.1); Sodium 137 mmol/L (135-145); eGFR 35.23
[2024-09-16] MEDS: CLARITIN 10 MG PO (08:28)
[2024-09-16] MEDS: LASIX 20 MG PO (08:28)
[2024-09-16] MEDS: ASPIR LOW (ENTERIC COATED) 81 MG PO (08:28)
[2024-09-16] MEDS: LOPRESSOR 25 MG PO ×2 (08:29→20:01)
[2024-09-16] MEDS: MUCINEX 600 MG PO ×2 (08:29→20:02)
[2024-09-16] MEDS: VIBRAMYCIN 100 MG PO ×2 (08:29→20:02)
[2024-09-16] MEDS: PROTONIX 40 MG PO ×2 (08:29→20:02)
[2024-09-16] MEDS: LIDOCAINE 4% PATCH 1 PATCH TOPICAL (08:30)
[2024-09-16] MEDS: SENOKOT-S 1 TABLET PO (08:34)
[2024-09-16] MEDS: FLUSH (NSS) 2 FLUSH IV (09:25)
--- NOTE | 2024-09-16 09:55 | W.PN.HOSP.TC ---
Today's Communication/Plan
-
see bold
Assessment / Plan
Assessment / Plan
Ms. Faiza Ann is a 78 yo woman with hx thyroid CA s/p resection, leiomyoma of uterus s/p BSO 2015, recent CVA (MRI without acute changes but new dysarthria/ataxia suggestive right pontine stroke per Neurology), spindle cell neoplasm of smooth
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
She had hypercalcemia last visit treated with pamidronate.
Chest/Abdomen/Pelvis CT
IMPRESSION:
Moderate left pleural effusion, significantly increased in comparison to recent prior abdomen CT with large left lower lobe consolidation.
Small volume high attenuation density in the distal thoracic esophagus, presumably food material with suspected small hiatal hernia.
Prior cholecystectomy.
Multiple abdominal and pelvic masses again seen, largest left-sided, at least 2 of which are slightly larger in size in comparison to recent prior study, correlating with the known history of spindle cell malignancy.
Percutaneous left nephrostomy catheter with distal pigtail portion noted to be centrally within the left renal collecting system, without significant left renal collecting system dilatation.
Moderate to large volume ascites again seen.
Moderate Pleural Effusion
Left lower lobe Pneumonia
-concern weakness related to LL pneumonia as large consolidation seen on CT.
-continue antibiotics (now Augmentin/Doxy - day 06/14 for PNA)
-s/p thoracentesis 09/13 showing exudative effusion (infection versus malignancy)
-Pulmonary consult appreciated
-Mucinex, Acapella
-cytology negative
-pleural fluid culture without growth
Ascites
-increase in size since prior (reported small)
-s/p paracentesis 09/13 with over 250 PMN --> continue antibiotics as above
-s/p IV Albumin infusion on 09/13 post para
-cytology negative
-culture without growth
Spindle Cell Neoplasm of Smooth Muscle
Left Hydronephrosis s/p nephrostomy tube placement with stent removal yesterday
-patient is to follow up with Dr. Teixeira at [facility] for plan for surgery,
-Oncology consult appreciated
-cytology negative for ascitic and pleural fluid
Shortness of breath
-TTE 05/23/24 with EF 69%, mild to moderate MR
-repeat CXR today
-patient's oral lasix resumed, will consider IV
UTI with enterococcus in urine and recent instrumentation/nephrostomy tube placement
-IV Unasyn - day 4 out of 14 for UTI - 14 days as patient has a nephrostomy tube
-appreciate Urology
Nausea/dry heaves related to mucus build up
-Mucinex as above
-IM Tigan PRN given prolonged Qtc
-Flonase trialed and patient felt improvement this AM, continue to montior
Acute on Chronic Anemia
-mixed CINDY and anemia inflammation
-s/p 1 unit PRBC on 09/14
Bruising along right flank
-patient states may have occurred when repositioned in bed as she bruises easily
-marking area, will repeat Hg at noon if drops then will need repeat CT
Hypokalemia
-repleted
-Mag 1.8
Oozing around left nephrostomy tube site - may be 2/2 compression from mass, continued dressing changes
Lower Extremity edema
-BNP 1040, Albumin 3.4
-with dry heaves and poor PO intake hold ASSESSMENT MANAGER Lasix for now, likely resume tomorrow
-patient was not taking daily at home as results in incontinence
-TTE 05/23/24 with EF 69%, mild to moderate MR
-resume lasix today
Recent CVA
-diagnosed clinically, MRI without finding
-ASSESSMENT MANAGER aspirin/statin
Leiomyoma of Uterus s/p BSO 2015
Thyroid CA s/p Resection
-ASSESSMENT MANAGER Synthroid
SVT
-ASSESSMENT MANAGER Metoprolol 25mg PO BID
GERD
-ASSESSMENT MANAGER PPI
DVT PPx Lovenox subQ - on hold with bruising, SCD's ordered
FULL CODE
51 minutes spent on patient care
Anticipated Discharge: 24 - 48 hours
Subjective/Interval History
-
Date of Service: September 16, 2024
no significant mucus this morning
she has a bruise along left side of abdomen/flank and doesn't know when it started
Objective Data
-
Labs:
Laboratory Results
09/16/24 09/16/24
07:13 12:00
WBC 11.1 H
Hgb 7.3 L Pending
Hct 23.2 L
Plt Count 173 D
Sodium 137
Potassium 3.8
Chloride 104
Carbon Dioxide 27
BUN 17
Creatinine 1.5 H
Glucose 93
Calcium 7.5 L
Vital Signs:
Vital Signs
Temp Pulse Resp BP Pulse Ox
97.6 F 80 18 105/52 98
09/16/24 07:52 09/16/24 08:28 09/16/24 07:52 09/16/24 08:28 09/16/24 07:52
I&O
09/15/24 09/16/24 09/17/24
06:59 06:59 06:59
Intake Total 2059 1710 / 171
Output Total 100 / 100 235 / 235
Balance 1959 / 1959 1475 / 1475
Review of Systems
-
History Source: Patient
All other systems: Reviewed and negative
Physical Exam
-
General: Well Developed, Well Nourished, No Apparent Distress and Comfortable
HEENT: Normocephalic, Atraumatic and Moist Mucous Membranes
Respiratory: Clear to Auscultation and Non Labored Respirations
Cardiac: Regular Rhythm and S1/S2; Negative Murmur, Rub or Gallop
GI: Nontender, Normal Bowel Sounds, Distended and Organomegaly
Musculoskeletal: No Clubbing, No Cyanosis and Other (LE swelling R > L - chronic )
Skin: Warm, Dry and Normal Turgor; Negative Rash
Neuro: AO x 3 and Nonfocal/Grossly Intact
Psych: Calm
Data Reviewed
-
Diagnostic Radiology: Report Reviewed by me
Labs: Labs Reviewed by me
--- NOTE | 2024-09-16 09:56 | CM ---
Addendum entered by Ai De Oliveira 09/16/24 14:42:
Patient son left word with nursing requesting call. Update provided to patient son.
Original Note:
CM spoke with physician and patient for possible discharge tomorrow. CM called to [facility] and confirmed ability to accept with LiaisonТатьяна. Physician updated. CM will continue to follow for discharge planning needs.
Plan; SNF tomorrow pending physician assessment
[2024-09-16 12:30] VITALS: BP 109/52
[2024-09-16 12:56] LABS: Hemoglobin 7.5 g/dL (12.0-16.0)
[2024-09-16] MEDS: KCL 20 MEQ PO ×2 (13:02→17:18)
[2024-09-16] MEDS: LASIX 20 MG IV (15:07)
[2024-09-16 15:30] VITALS: BP 101/54
[2024-09-16] MEDS: AUGMENTIN 875 MG/125 MG 1 TABLET PO (17:18)
[2024-09-16] MEDS: LEXAPRO 20 MG PO (17:18)
[2024-09-16] MEDS: LIPITOR 40 MG PO (17:18)
[2024-09-16] MEDS: SINGULAIR 10 MG PO (17:18)
[2024-09-16 19:37] VITALS: BP 110/56
[2024-09-16] MEDS: REMOVE LIDOCAINE PATCH 1 PATCH REMOVE (20:02)
[2024-09-16] MEDS: NON-FORMULARY ITEM 1 UNIT INH (20:02)
[2024-09-16] MEDS: ULTRAM 50 MG PO (21:07)
[2024-09-16] MEDS: XANAX 0.25 MG PO (22:07)
[2024-09-16 23:06] VITALS: BP 94/46
[2024-09-17] VITALS (10 sets, daily range): BP systolic 82–110; BP diastolic 46–62; BMI 30.2
[2024-09-17] MEDS: TYLENOL 650 MG PO (01:12)
[2024-09-17] MEDS: SYNTHROID 200 MCG PO (05:44)
[2024-09-17 07:03] LABS: Hematocrit 22.3 % (37.0-47.0); Hemoglobin 7.1 g/dL (12.0-16.0); Mean Corp Hgb Conc. 31.8 g/dL (33.0-37.0); Mean Corpuscular Volume 94.1 fL (81.0-99.0); Platelet Count 169 10^3/uL (130-400); Red Cell Dist. Width 18.7 % (11.5-14.5)
[2024-09-17 07:35] LABS: Blood Urea Nitrogen 19 mg/dl (7-17); Calcium 7.2 mg/dl (8.4-10.2); Carbon Dioxide 29 mmol/L (22-30); Chloride 102 mmol/L (98-107); Estimated Creatinine Clearance 28 ml/min; Glucose 98 mg/dl (70-99); Magnesium 1.4 mg/dl (1.6-2.3); Potassium 3.5 mmol/L (3.5-5.1); Sodium 136 mmol/L (135-145); eGFR 30.32
[2024-09-17] MEDS: ASPIR LOW (ENTERIC COATED) 81 MG PO (10:06)
[2024-09-17] MEDS: CLARITIN 10 MG PO (10:06)
[2024-09-17] MEDS: MUCINEX 600 MG PO ×2 (10:06→20:10)
[2024-09-17] MEDS: VIBRAMYCIN 100 MG PO ×2 (10:06→20:10)
[2024-09-17] MEDS: PROTONIX 40 MG PO ×2 (10:06→20:10)
[2024-09-17] MEDS: AUGMENTIN 875 MG/125 MG 1 TABLET PO ×2 (10:06→20:10)
[2024-09-17] MEDS: LIDOCAINE 4% PATCH 1 PATCH TOPICAL (10:06)
[2024-09-17] MEDS: MAGNESIUM SULFATE 50 IV (10:07)
[2024-09-17] MEDS: FLUSH (NSS) 2 FLUSH IV (10:07)
[2024-09-17] MEDS: LOPRESSOR 25 MG PO ×2 (10:10→20:10)
[2024-09-17] MEDS: LASIX PO (10:10)
--- NOTE | 2024-09-17 10:44 | W.PN.HOSP.TC ---
Addendum entered and electronically signed by Elsy Grant MD 09/17/24 16:26:
consider narrowing antibiotics to Amoxicillin after 7 days complete of treatment for Pneumonia
Original Note:
Today's Communication/Plan
-
1 unit PRBC transfusion
continue antibiotics
possible DC to SNF tomorrow
Assessment / Plan
Assessment / Plan
Ms. Faiza Ann is a 78 yo woman with hx thyroid CA s/p resection, leiomyoma of uterus s/p BSO 2016, recent CVA (MRI without acute changes but new dysarthria/ataxia suggestive right pontine stroke per Neurology), spindle cell neoplasm of smooth
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 She was found to have UTI, left lower lobe consolidation with moderate size left pleural effusion and moderate-large ascites s/p thoracentesis and
paracentesis. Both ascitic and pleural effusion negative for cytology and culture growth. Hospital course complicated by intermittent shortness of breath, acute on chronic anemia.
She had hypercalcemia last visit treated with pamidronate.
Chest/Abdomen/Pelvis CT 09/12/24
IMPRESSION:
Moderate left pleural effusion, significantly increased in comparison to recent prior abdomen CT with large left lower lobe consolidation.
Small volume high attenuation density in the distal thoracic esophagus, presumably food material with suspected small hiatal hernia.
Prior cholecystectomy.
Multiple abdominal and pelvic masses again seen, largest left-sided, at least 2 of which are slightly larger in size in comparison to recent prior study, correlating with the known history of spindle cell malignancy.
Percutaneous left nephrostomy catheter with distal pigtail portion noted to be centrally within the left renal collecting system, without significant left renal collecting system dilatation.
Moderate to large volume ascites again seen.
CXR 09/16/24
IMPRESSION:
Likely at least small left pleural effusion.
Pulmonary vascularity within the limits of normal.
Moderate Pleural Effusion
Left lower lobe Pneumonia
-concern LL pneumonia contributing to weakness, large consolidation seen on CT.
-continue antibiotics (now Augmentin/Doxy - day 07/15 for PNA)
-s/p thoracentesis 09/13 showing exudative effusion (infection versus malignancy)
-Pulmonary consult appreciated
-Mucinex, Acapella
-cytology negative
-pleural fluid culture without growth
-repeat CXR in 1-2 weeks as outpatient
Ascites
-increase in size since prior (reported small)
-s/p paracentesis 09/13 with over 250 PMN (SBP versus likely malignancy process)
-s/p IV Albumin infusion on 09/13 post para
-cytology negative
-culture without growth
-continue antibiotics as above
Spindle Cell Neoplasm of Smooth Muscle
Left Hydronephrosis s/p nephrostomy tube placement with stent removal day prior to admission
-patient is to follow up with Dr. Teixeira at [facility] for plan for surgery,
-Oncology consult appreciated
-cytology negative in ascitic and pleural fluid
Shortness of breath
-TTE 05/23/24 with EF 69%, mild to moderate MR
-there was concern volume overload was contributing (s/p IV lasix 09/16) but mild bump in creatinine today, therefore hold further lasix
-SOB likely 2/2 deconditioning, pneumonia, possible anemia contributing
Acute on Chronic Anemia
-mixed CINDY and anemia inflammation
-s/p 1 unit PRBC on 09/14
-transfuse an additional unit of blood today, 09/17
UTI with enterococcus in urine and recent instrumentation/nephrostomy tube placement
-IV Unasyn - day 5 out of 14 for UTI - 14 days as patient has a nephrostomy tube (discussed briefly length of abx course with ID)
-appreciate Urology
Nausea/dry heaves related to mucus build up
-Mucinex as above
-IM Tigan PRN given prolonged Qtc
-Flonase trialed and patient felt improvement this AM, continue to montior
Bruising along right flank
-patient states may have occurred when repositioned in bed as she bruises easily
-Hg relatively stable, exam stable
Hypokalemia
-repleted
-Mag 1.8
Oozing around left nephrostomy tube site - may be 2/2 compression from mass, continued dressing changes
Lower Extremity edema
-BNP 1040, Albumin 3.4
-patient was not taking daily at home as results in incontinence
-TTE 05/23/24 with EF 69%, mild to moderate MR
-given mild DION with resumption of lasix - will make PRN on DC - patient was only taking PRN at home
Recent CVA
-diagnosed clinically, MRI without finding
-MAINTENANCE APPRENTICE aspirin/statin
Leiomyoma of Uterus s/p BSO 2015
Thyroid CA s/p Resection
-MAINTENANCE APPRENTICE Synthroid
SVT
-MAINTENANCE APPRENTICE Metoprolol 25mg PO BID
GERD
-MAINTENANCE APPRENTICE PPI
DVT PPx Lovenox subQ - on hold with bruising, SCD's ordered
FULL CODE
51 minutes spent on patient care
Anticipated Discharge: 24 - 48 hours
Subjective/Interval History
-
Date of Service: September 17, 2024
bruising along right flank is stable
she had some shortness of breath overnight, not on oxygen
no black or bloody stools
Objective Data
-
Labs:
Laboratory Results
09/17/24
06:32
WBC 10.9 H
Hgb 7.1 L
Hct 22.3 L
Plt Count 169
Sodium 136
Potassium 3.5
Chloride 102
Carbon Dioxide 29
BUN 19 H
Creatinine 1.7 H
Glucose 98
Calcium 7.2 L
Vital Signs:
Vital Signs
Temp Pulse Resp BP Pulse Ox
97.4 F 70 18 107/58 98
09/17/24 07:00 09/17/24 10:10 09/17/24 07:00 09/17/24 10:10 09/17/24 07:00
I&O
09/16/24 09/17/24 09/18/24
06:59 06:59 06:59
Intake Total 1710 / 1710 1200 / 1200
Output Total 235 / 235 1500 / 1500
Balance 1475 / 1475 -300 / -300
Review of Systems
-
History Source: Patient
All other systems: Reviewed and negative
Physical Exam
-
General: Well Developed, Well Nourished, No Apparent Distress and Comfortable
HEENT: Normocephalic, Atraumatic and Moist Mucous Membranes
Respiratory: Clear to Auscultation and Non Labored Respirations
Cardiac: Regular Rhythm and S1/S2; Negative Murmur, Rub or Gallop
GI: Nontender, Normal Bowel Sounds, Distended and Organomegaly
Musculoskeletal: No Clubbing, No Cyanosis and Other (LE swelling R > L - chronic )
Skin: Warm, Dry and Other (bruising along right flank receding/stable borders); Negative Rash
Neuro: AO x 3 and Nonfocal/Grossly Intact
Psych: Calm
Data Reviewed
-
Diagnostic Radiology: Report Reviewed by me
Labs: Labs Reviewed by me
--- NOTE | 2024-09-17 11:19 | CM ---
Per physician patient for possible discharge to SNF tomorrow. Patient will need IMM and transportation via ambulance. CM will leave message for [facility] admissions with new update. CM will continue to follow for discharge planning needs.
Plan; [facility] pending bed availability
[2024-09-17] MEDS: VISBIOME 1 CAP PO (15:47)
--- NOTE | 2024-09-17 15:49 | PTCARENOTE ---
Made Dr. Grant aware of pt having multiple loose stools today. Pt states that she feels like it is due to the senna she took yesterday. Senna administered since pt did not have BM for 3 days. Stool brown in color, no apparent blood. Pt is requesting
Imodium as pt goes between loose stool and constipation at home.
Dr. Grant wants to r/o C.Diff prior to Imodium administration. Probiotics ordered. Updated pt on plan.
Also, made Dr. Grant aware of pt's BP on right arm 82/52, asymptomatic. Left arm 101/53. Plan to administer ordered unit of blood, will continue to monitor.
--- NOTE | 2024-09-17 16:37 | W.PN.UPDATE ---
Update Note
Progress Note Update
Disposition : SNF
Primary care physician : Dr. Samson Davenpotr
Principal Discharge diagnosis : Urinary tract infection in setting recent nephrostomy tube; left lower lobe pneumonia; left pleural effusion s/p thoracentesis; ascitic fluid status post paracentesis; spindle cell smooth muscle neoplasm; acute on
chronic anemia
Hospital Course :
Ms. Faiza Ann is a 78 yo woman with hx thyroid CA s/p resection, leiomyoma of uterus s/p BSO 2015, recent CVA (MRI without acute changes but new dysarthria/ataxia suggestive right pontine stroke per Neurology), spindle cell neoplasm of smooth
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
Triage vitals stable. Labs without leukocytosis, creatinine at baseline 1.6. Trop < 0.012. Chest/Abdomen/Pelvis CT with finding of moderate left pleural effusion with consolidation, multiple abdominal and pelvic masses again seen with moderate to
large volume ascites. UA with inflammation. Patient was started on antibiotics for treatment of pneumonia and UTI. IR consulted for thoracentesis and paracentesis. Pulmonary and Oncology consulted.
Patient's pleural fluid analysis was exudative, cytology was negative for malignant cells and culture negative. Her ascitic fluid had PMN > 250 with culture negative and cytology also negative for malignant cells. She was treated with Unasyn -->
Augmentin/Doxy for pneumonia. After 7 day course can narrow antibiotics to Amoxicillin for UTI.
Patient's urine culture grew enterococcus sensitive to Ampicillin. Post Augmentin course for pneumonia, can narrow to Amoxicillin to complete 10-14 days in setting of nephrostomy tube.
Hospital course complicated by intermittent shortness of breath. Initially concern for volume overload as her Lasix had been held but s/p resumption and one dose IV she had mild DION. Can continue Lasix only as needed at discharge (this is how
patient was taking prior).
Hospital course complicated by acute on chronic anemia without evidence of active bleeding. She had some superficial bruising that is stable. She received 1 unit PRBC on 09/14 and ordered for another on 09/17.
She complained of mucus build up in morning that led to gagging. Flonase ordered and prescribed in-house which has seemed to help.
Patient has diarrhea post bowel regimen, but also on antibiotics. Started probiotics and tested C. Diff, if negative will order Imodium.
Ultimately, patient requires further rehab to then follow up with her Gynecologic Oncologist specialist at [place], Dr. Teixeira, to discuss debulking surgery.
Important imaging findings :
Chest/Abdomen/Pelvis CT 09/12/14
IMPRESSION:
Moderate left pleural effusion, significantly increased in comparison to recent prior abdomen CT with large left lower lobe consolidation.
Small volume high attenuation density in the distal thoracic esophagus, presumably food material with suspected small hiatal hernia.
Prior cholecystectomy.
Multiple abdominal and pelvic masses again seen, largest left-sided, at least 2 of which are slightly larger in size in comparison to recent prior study, correlating with the known history of spindle cell malignancy.
Percutaneous left nephrostomy catheter with distal pigtail portion noted to be centrally within the left renal collecting system, without significant left renal collecting system dilatation.
Moderate to large volume ascites again seen.
Procedure findings :
[2024-09-17] MEDS: LIPITOR 40 MG PO (17:00)
[2024-09-17] MEDS: SINGULAIR 10 MG PO (17:00)
[2024-09-17] MEDS: LEXAPRO 20 MG PO (17:00)
--- NOTE | 2024-09-17 18:00 | PTCARENOTE ---
Started unit of PRBCs at 1618. Blood transfusing and then IV line noted to be leaking about 20 minutes into tranfusion. No pain or redness of site. Vascular access placed new line. Blood has been transfusing without difficulty since new line, will
continue to monitor closely.
--- NOTE | 2024-09-17 19:19 | PTCARENOTE ---
Completed entire unit of PRBCs at this time without any apparent transfusion reaction.
[2024-09-17] MEDS: REMOVE LIDOCAINE PATCH REMOVE ×2 (20:11→20:22)
[2024-09-17] MEDS: NON-FORMULARY ITEM 1 UNIT INH (20:11)
[2024-09-17] MEDS: ULTRAM 50 MG PO (21:25)
[2024-09-17] MEDS: XANAX 0.25 MG PO (23:32)
[2024-09-18 03:35] VITALS: BP 103/61
[2024-09-18 05:16] VITALS: BMI 30.5
[2024-09-18] MEDS: SYNTHROID 200 MCG PO (05:34)
[2024-09-18] MEDS: TYLENOL 650 MG PO ×2 (05:34→13:46)
[2024-09-18 08:07] VITALS: BP 111/57
[2024-09-18 08:10] LABS: Hematocrit 25.2 % (37.0-47.0); Hemoglobin 8.1 g/dL (12.0-16.0); Mean Corp Hgb Conc. 32.1 g/dL (33.0-37.0); Mean Corpuscular Volume 93.0 fL (81.0-99.0); Platelet Count 156 10^3/uL (130-400); Red Cell Dist. Width 18.3 % (11.5-14.5)
[2024-09-18 08:39] LABS: Blood Urea Nitrogen 21 mg/dl (7-17); Calcium 7.0 mg/dl (8.4-10.2); Carbon Dioxide 29 mmol/L (22-30); Chloride 101 mmol/L (98-107); Estimated Creatinine Clearance 29 ml/min; Glucose 87 mg/dl (70-99); Potassium 3.7 mmol/L (3.5-5.1); Sodium 135 mmol/L (135-145); eGFR 30.32
--- NOTE | 2024-09-18 08:51 | W.PN.ONC2 ---
Today's Communication / Plan
-
repeat para
next gen sequencing
quantify ER positivity on pathology
discharge planning
Impression
Impression
spindle cell neoplasm -unclear if recurrence of either a leiomyoma or leiomyosarcoma
ascites, 09/13 cytology negative for malignancy, cx negative to date
left pleural effusion, 09/13 cytology negative for malignancy
LLL consolidation, possible PNA
Enterococcus UTI
recent pontine stroke (clinical dx see neuro notes) on ASA
hx leiomyosarcoma resected 2015
nephrostomy s/p JJ stent removal 09/11, L perc nephrostomy -appreciate urology input
multifactorial anemia -pleural effusion and ascites grossly bloody, renal insufficiency, malignancy -iron studies 08/17/2024 showed iron 25, TIBC 233, IS 10, ferritin 324. s/p 1U prbc 08/28
diarrhea, c.diff negative 09/17
Plan
Plan
Pt tells me that surgery with Dr. Teixeira has been canceled -I will ask Dr. Lugo to weigh in on this case
both thora/para cytology is negative for malignancy, however, I have requested a repeat diagnostic and therapeutic paracentesis today
I will request next gen sequencing on pathology reviewed at [place]
I have requested pathology to quantify ER positivity to consider AI
monitor for bleeding
avoid parenteral iron in the setting of infection
transfuse Hgb <7 or as needed for sxs anemia
encouraged OOB as tolerated -optimize performance status
abx per primary service
Subjective/Objective
Subjective
had been constipated and now with diarrhea, last rec'ed bowel regimen with colace/senna 09/16
using tramadol prn and tylenol prn pain, also wearing lidoderm patch
denies overt bleeding
Vital Signs:
Vital Signs
Temp Pulse Resp BP Pulse Ox
97.7 F 64 18 111/57 98
09/18/24 08:07 09/18/24 08:07 09/18/24 08:07 09/18/24 08:07 09/18/24 08:07
Lab Results:
Laboratory Data
WBC 12.0 10^3/uL (4.8-10.8) H 09/18/24 07:52
Hgb 8.1 g/dL (12.0-16.0) L 09/18/24 07:52
Plt Count 156 10^3/uL (130-400) 09/18/24 07:52
eGFR 30.32 09/18/24 07:52
Physical Exam
HEENT: No Jaundice
Cardiology: Normal Sinus Rhythm
Pulmonary: Other (unlabored)
GI: Soft and Distended
Extremities: Pulses Present and Edema
Neuro: Non Focal
[2024-09-18] MEDS: LIDOCAINE 4% PATCH 1 PATCH TOPICAL (09:08)
[2024-09-18] MEDS: VIBRAMYCIN 100 MG PO (09:10)
[2024-09-18] MEDS: AUGMENTIN 875 MG/125 MG 1 TABLET PO (09:10)
[2024-09-18] MEDS: CLARITIN 10 MG PO (09:10)
[2024-09-18] MEDS: MUCINEX 600 MG PO (09:10)
[2024-09-18] MEDS: ASPIR LOW (ENTERIC COATED) 81 MG PO (09:12)
[2024-09-18] MEDS: LOPRESSOR 25 MG PO (09:12)
[2024-09-18] MEDS: VISBIOME 1 CAP PO (09:12)
[2024-09-18] MEDS: PROTONIX 40 MG PO (09:12)
[2024-09-18] MEDS: XANAX 0.25 MG PO (09:14)
[2024-09-18 11:26] VITALS: BP 114/56
[2024-09-18] MEDS: TIGAN 200 MG IM (13:48)
--- NOTE | 2024-09-18 13:49 | W.PN.HOSP.TC ---
Today's Communication/Plan
-
DC
Assessment / Plan
Assessment / Plan
Ms. Faiza Ann is a 78 yo woman with hx thyroid CA s/p resection, leiomyoma of uterus s/p BSO 2016, recent CVA (MRI without acute changes but new dysarthria/ataxia suggestive right pontine stroke per Neurology), spindle cell neoplasm of smooth
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 She was found to have UTI, left lower lobe consolidation with moderate size left pleural effusion and moderate-large ascites s/p thoracentesis and
paracentesis. Both ascitic and pleural effusion negative for cytology and culture growth. Hospital course complicated by intermittent shortness of breath, acute on chronic anemia.
She had hypercalcemia last visit treated with pamidronate.
Chest/Abdomen/Pelvis CT 09/12/24
IMPRESSION:
Moderate left pleural effusion, significantly increased in comparison to recent prior abdomen CT with large left lower lobe consolidation.
Small volume high attenuation density in the distal thoracic esophagus, presumably food material with suspected small hiatal hernia.
Prior cholecystectomy.
Multiple abdominal and pelvic masses again seen, largest left-sided, at least 2 of which are slightly larger in size in comparison to recent prior study, correlating with the known history of spindle cell malignancy.
Percutaneous left nephrostomy catheter with distal pigtail portion noted to be centrally within the left renal collecting system, without significant left renal collecting system dilatation.
Moderate to large volume ascites again seen.
CXR 09/16/24
IMPRESSION:
Likely at least small left pleural effusion.
Pulmonary vascularity within the limits of normal.
Moderate Pleural Effusion
Left lower lobe Pneumonia
-concern LL pneumonia contributing to weakness, large consolidation seen on CT.
-continue antibiotics (now Augmentin/Doxy - day 08/14 for PNA)
-s/p thoracentesis 09/13 showing exudative effusion (infection versus malignancy)
-Pulmonary consult appreciated
-Mucinex, Acapella
-cytology negative
-pleural fluid culture without growth
-repeat CXR in 1-2 weeks as outpatient
Ascites
-increase in size since prior (reported small)
-s/p paracentesis 09/13 with over 250 PMN (SBP versus likely malignancy process)
-s/p IV Albumin infusion on 09/13 post para
-cytology negative
-culture without growth
-continue antibiotics as above
- Repeat therapeutic tap today due to reaccumulation prior to DC
Spindle Cell Neoplasm of Smooth Muscle
Left Hydronephrosis s/p nephrostomy tube placement with stent removal day prior to admission
-patient is to follow up with Dr. Teixeira at [facility] for plan for surgery,
-Oncology consult appreciated
-cytology negative in ascitic and pleural fluid
Shortness of breath
-TTE 05/23/24 with EF 69%, mild to moderate MR
-there was concern volume overload was contributing (s/p IV lasix 09/16) but mild bump in creatinine , therefore hold further lasix
-SOB likely 2/2 deconditioning, pneumonia, possible anemia contributing
Acute on Chronic Anemia
-mixed CINDY and anemia inflammation
-s/p 1 unit PRBC on 09/14
-transfused an additional unit of blood , 09/17
UTI with enterococcus in urine and recent instrumentation/nephrostomy tube placement
-IV Unasyn - day 6 out of 14 for UTI - 14 days as patient has a nephrostomy tube (discussed briefly length of abx course with ID)
-appreciate Urology
Nausea/dry heaves related to mucus build up
-Mucinex as above
-IM Tigan PRN given prolonged Qtc
-Flonase trialed and patient felt improvement this AM, continue to montior
Bruising along right flank
-patient states may have occurred when repositioned in bed as she bruises easily
-Hg relatively stable, exam stable
Hypokalemia
-repleted
-Mag 1.8
Oozing around left nephrostomy tube site - may be 2/2 compression from mass, continued dressing changes
Lower Extremity edema
-BNP 1040, Albumin 3.4
-patient was not taking daily at home as results in incontinence
-TTE 05/23/24 with EF 69%, mild to moderate MR
-given mild DION with resumption of lasix - will make PRN on DC - patient was only taking PRN at home
Recent CVA
-diagnosed clinically, MRI without finding
-PASTRY DECORATOR aspirin/statin
Leiomyoma of Uterus s/p BSO 2015
Thyroid CA s/p Resection
-PASTRY DECORATOR Synthroid
SVT
-PASTRY DECORATOR Metoprolol 25mg PO BID
GERD
-PASTRY DECORATOR PPI
DVT PPx Lovenox subQ - on hold with bruising, SCD's ordered
FULL CODE
dw Onc -ok for DC from there standpoint
DC after the paracentesis
Total time of dc 35 min
DC to rehab when bed available
Anticipated Discharge: Today
Subjective/Interval History
-
Date of Service: September 18, 2024
Ascites reaccumulated. She feels distended again. No abdominal pain. No nausea vomiting. No fevers.
Denies any chest pain or shortness of breath. Stable on room air.
Objective Data
-
Labs:
Laboratory Results
09/18/24
07:52
WBC 12.0 H
Hgb 8.1 L
Hct 25.2 L
Plt Count 156
Sodium 135
Potassium 3.7
Chloride 101
Carbon Dioxide 29
BUN 21 H
Creatinine 1.7 H
Glucose 87
Calcium 7.0 L
Vital Signs:
Vital Signs
Temp Pulse Resp BP Pulse Ox
97.9 F 62 18 114/56 98
09/18/24 11:26 09/18/24 11:26 09/18/24 11:26 09/18/24 11:26 09/18/24 11:26
I&O
09/17/24 09/18/24 09/19/24
06:59 06:59 06:59
Intake Total 1200 / 1200 1140 / 1140
Output Total 1500 / 1500 475 / 475
Balance -300 / -300 665 / 665
Physical Exam
-
General: Comfortable; Negative Respiratory Distress
Respiratory: Clear to Auscultation and Non Labored Respirations; Negative Accessory Resp Muscle Use
Cardiac: Regular Rhythm and S1/S2
GI: Soft, Nontender, Normal Bowel Sounds and Distended
Neuro: AO x 3; Negative Tremors
Psych: Calm; Negative Confused
Data Reviewed
-
Labs: Labs Reviewed by me
--- NOTE | 2024-09-18 14:37 | CM ---
Spoke with attending who stated that patient is medically cleared for discharge. Placed a call to [facility] in admissions at [facility] who confirmed bed availability for today. # For report [phone] and fax [phone]. Met with patient and her
daughter at bedside. Patient was agreeable to d/c. She signed IMM. In is now on chart.
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
Plan: Case management will continue to follow and assist with discharge planning. [facility] (formerly [facility]
[2024-09-18] MEDS: IMODIUM 2 MG PO (14:38)
[2024-09-18 16:18] VITALS: BP 100/49
[2024-09-18] MEDS: SINGULAIR 10 MG PO (17:12)
[2024-09-18] MEDS: LIPITOR 40 MG PO (17:12)
[2024-09-18] MEDS: LEXAPRO 20 MG PO (17:12)
== END 2024-09-18 18:03 | DRG 698 ==
LOC: 4 EAST ACU 17:22
PROVIDERS: Emergency Medicine; Physician Assistant; Radiology Diagnostic Radiology; Registered Nurse; ADMITTING PHYSICIAN Student in an Organized Health Care Education/Training Program; ATTENDING PHYSICIAN Internal Medicine; CONSULT PHYSICIAN Internal Medicine Hematology & Oncology; CONSULT PHYSICIAN Specialist; EMERGENCY PHYSICIAN Emergency Medicine; FAMILY PHYSICIAN Internal Medicine; OTHER PHYSICIAN Internal Medicine Critical Care Medicine
PROC: 0W9B3ZZ Drainage of Left Pleural Cavity, Percutaneous Approach (ICD-10-PCS; 2024-09-13)
PROC: 0W9G3ZZ Drainage of Peritoneal Cavity, Percutaneous Approach (ICD-10-PCS; 2024-09-13)
PROC: 30233N1 Transfusion of Nonautologous Red Blood Cells into Peripheral Vein, Percutaneous Approach (ICD-10-PCS; 2024-09-14)
DX: T83.518A Infection and inflammatory reaction due to other urinary catheter, initial encounter (principal); J18.9 Pneumonia, unspecified organism; C48.0 Malignant neoplasm of retroperitoneum; J90 Pleural effusion, not elsewhere classified; R18.8 Other ascites; I47.10 Supraventricular tachycardia, unspecified; C79.9 Secondary malignant neoplasm of unspecified site; N17.9 Acute kidney failure, unspecified; N13.6 Pyonephrosis; Y84.6 Urinary catheterization as the cause of abnormal reaction of the patient, or of later complication, without mention of misadventure at the time of the procedure; E89.0 Postprocedural hypothyroidism; E87.6 Hypokalemia; E78.00 Pure hypercholesterolemia, unspecified; F32.A Depression, unspecified; I45.10 Unspecified right bundle-branch block; K21.9 Gastro-esophageal reflux disease without esophagitis; J45.909 Unspecified asthma, uncomplicated; B95.2 Enterococcus as the cause of diseases classified elsewhere; D50.9 Iron deficiency anemia, unspecified; F41.9 Anxiety disorder, unspecified; G89.29 Other chronic pain; K58.9 Irritable bowel syndrome, unspecified; N18.32 Chronic kidney disease, stage 3b; R54 Age-related physical debility; I12.9 Hypertensive chronic kidney disease with stage 1 through stage 4 chronic kidney disease, or unspecified chronic kidney disease; Z11.52 Encounter for screening for COVID-19; Z96.653 Presence of artificial knee joint, bilateral; Z93.6 Other artificial openings of urinary tract status; Z90.710 Acquired absence of both cervix and uterus; Z90.49 Acquired absence of other specified parts of digestive tract; Z86.73 Personal history of transient ischemic attack (TIA), and cerebral infarction without residual deficits; Z85.850 Personal history of malignant neoplasm of thyroid; Z79.899 Other long term (current) drug therapy; Z79.82 Long term (current) use of aspirin; Z79.890 Hormone replacement therapy; Z88.5 Allergy status to narcotic agent; Z88.1 Allergy status to other antibiotic agents
CPT/HCPCS: 32555; 49083; 71045; 71046; 71250; 74176; 76705; 80048; 80053; 81003; 81015; 82042; 82150; 82248; 82945; 83615; 83735; 83880; 83986; 84157; 84478; 84484; 85014; 85018; 85025; 85027; 86850; 86870; 86900; 86901; 86920; 86922; 87015; 87070; 87077; 87086; 87102; 87116; 87186; 87205; 87206; 87324; 87449; 87502; 87811; 88112; 88305; 89051; 93005; 96374; 97162; 97166; 99285; P9016; P9047

== ENCOUNTER → 2024-09-29 10:18 | Outpatient (REF) | payer MEDICARE, BC, SELFPAY ==
[2024-09-29 10:33] VITALS: BP 93/67; BP_SYST 73
== END ==
LOC: RADI 10:18
PROVIDERS: ATTENDING PHYSICIAN Family Medicine; FAMILY PHYSICIAN Internal Medicine
DX: R18.8 Other ascites (principal); Z53.8 Procedure and treatment not carried out for other reasons
CPT/HCPCS: 76705

== ENCOUNTER 2024-10-15 20:27 | Inpatient (IN) | payer MEDICARE, BC, SELFPAY ==
[2024-10-15 14:30] VITALS: BP 95/56
--- NOTE | 2024-10-15 15:34 | ED.GENMED ---
History of Present Illness
<Farzad Mcqueen MD, Resident - Last Filed: 10/15/24 21:10>
General
Chief Complaint: Jaw Pain
Time Seen by Provider: 10/15/24 15:08
History of Present Illness
History of Present Illness:
Patient is a 78-year-old woman who presents to the emergency department with acute left-sided jaw pain and swelling with difficulty speaking. She has a past medical history of thyroid carcinoma status post resection, leiomyoma, CVA, UTI, and
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 She is allergic to codeine, erythromycin, hydrocodone, iodinated contrast media, NSAIDs, and oxycodone. She currently has a nephrostomy tube on the left side. She was in her normal state of health when
her jaw pain started yesterday late afternoon/evening. Unfortunately, she has been in and out of hospitals and rehab since August 06. She recently returned home from rehab and has been having and has had reduced oral intake since her discharge from
rehab. The pain is localized around the preauricular/temporomandibular joint area and it is giving her difficulty opening her mouth. The patient has difficulty talking and limits her responses to short answers due to the discomfort. She does not
have any shortness of breath or chest tightness/pain. She does not have any nausea vomiting or diarrhea. The pain has been very disruptive to her ability to sleep.
Past History
<Farzad Mcqueen MD, Resident - Last Filed: 10/15/24 21:10>
Past History
ED Past Medical History: Arrthythmia, Cancer (thyroid), Hypothyroidism, Other (Bursitis,), Other (Had fast-growing cataracts, Cataract surgery) and Other (Bad seasonal allergies, chronic head and nasal congestion with headaches, is on Pushpa all
year long. Takes Monolukast as needed.); Negative HTN, Hypercholesterolemia or NIDDM
ED Past Surgical History: Appendectomy, Cholecystectomy, Gynecological (Hysterectomy), Orthopedic (Bilateral knee replacements) and Other (Abd surgery for large fibroid)
Social History
Tobacco: Non-smoker
Alcohol: None
Personal:
Living: with family
Employment: Employed
Family History
Family History: Adopted
Phy Exam
<Farzad Mcqueen MD, Resident - Last Filed: 10/15/24 21:10>
General Physical Exam
General Presentation: moderate distress
General age: appears stated age
General Skin: warm and dry
General Habitus: normal and elderly
General Mental: alert and anxious
Cardiovascular Exam
Cardiovascular Exam: regular rate/rhythm, no edema, no gallop, no JVD, no murmur and normal peripheral pulses
Pulmonary Exam
Pulmonary Exam: lungs clear, no respiratory distress, no rales, chest non tender, no crackles, no rhonchi, no stridor, no wheezing and no cough
Gastrointestinal Exam
Gastrointestinal Exam: normal bowel sounds and non tender
Genitourinary Exam Female
Exam Female: other ( Nephrostomy tube status left side)
Psychiatric Exam
Psychiatric Exam: normal mood/affect
Course
<Farzad Mcqueen MD, Resident - Last Filed: 10/15/24 21:10>
Orders/Labs/Results
Orders:
Orders
10/15/24 15:52
Electrocardiogram (*1) Urgent
Reason for Study: Other
Other Reason for Exam: jaw pain
EKG- Treatment ONCE
10/15/24 16:01
CT Head W/o Iv Contrast Urgent
Comment:
Reason For Exam: Left sided jaw swelling and pain
10/15/24 16:02
Ondansetron HCl [Zofran] 4 mg PO NOW STA
Oxycodone [Roxicodone] 10 mg PO NOW STA
10/15/24 16:20
0.9% Sodium Chloride 250 ml [Nss] 250 ml IV BOLUS
10/15/24 16:31
Basic Metabolic Panel Urgent
Complete Blood Count/No Diff Urgent
10/15/24 17:26
Add On- LAB Urgent
Tests Added?: plasma albumin
10/15/24 17:44
Calcium Gluconate 1,000 mg IV NOW STA
10/15/24 17:47
CT Facial Bones W/o Iv Contras Urgent
Comment:
Reason For Exam: left jaw pain
10/15/24 17:53
Morphine Sulfate 4 mg IV NOW STA
10/15/24 19:47
Admit/Transfer Patient As Directed
Co-Sign Provider:
Level of Care: Inpatient admission
Assign to:: Medical/Surgical
Physician / Group: Serge
Diagnosis: Left Mandible Subluxation, Hypocalcemia
Reason for Hospitalization: Left Mandible Subluxation, Hypocalcemia
Expected length of stay greater than two midnights?: Yes
ELOS- Estimated Length of Stay in days: 3
I certify the patient meets the requirements for IP care: Yes
Comprehensive Metabolic Panel Urgent
Ionized Calcium Urgent
PRN Pain Medication Management As Directed
May give lesser potent ordered pain med per pt: Yes
preference::
Protocol:: Medication orders for pain may be administered in a
manner that supports deferring to patient preference
when the pt is:
- Requesting an ordered lesser potent pain medication.
Least to most potent pain medications are defined
as: acetaminophen < NSAID < tramadol < opioids
(morphine, oxycodone, hydromorphone).
- Requesting a lesser dose of the same medication IF
ORDERED.
- Requesting a less intrusive route of administration
if both routes are prescribed by the provider (PO <
IV).
10/15/24 19:48
Code Status As Directed
Resuscitation Status: Full Code
10/15/24 20:35
Urine Calcium Urgent
Date Specimen was Collected: 10/15/24
Time Specimen was Collected: 20:34
10/15/24 21:04
Calcium Carbonate/Vitamin D3 [Oscal 500 + D] 500 mg PO BID
Diazepam [Valium] 2 mg PO TIDPRN PRN
Heparin 5,000 units SC Q12
Metoprolol [Lopressor] 25 mg PO BID
Tramadol HCl [Ultram] 50 mg PO Q6HPRN PRN moderate pain
10/15/24 21:04
ORAL MAXILLO FACIAL CONSULT Routine
Consulting Provider: David Abdullahi
Was physician already notified: Yes
Reason for Consult: Left Mandible Subluxation
TSH Reflex To Free T4 Routine
Uric Acid Routine
Vitamin D, 25-OH Routine
Activity As Directed
Activity Level: Ambulate
With Assistance
Drains- Urinary As Directed
Type: Nephrostomy
Location: Left
I/O [Intake/ Output] As Directed
Frequency: Per unit guidelines
Vital Signs As Directed
Frequency: Per unit guidelines
Oxygen Therapy [O2 Therapy] [RESP] Routine
Titrate/Wean O2 to maintain O2 sat greater than (%): 94
DX Deep Vein Thrombosis Video Routine
10/15/24 22:00
Acetaminophen [Tylenol] 1,000 mg PO TID
10/16/24 06:00
Basic Metabolic Panel IN AM
Complete Blood Count/No Diff IN AM
Magnesium IN AM
Phosphorus IN AM
Levothyroxine [Synthroid] 200 mcg PO DAILY @ 0600
10/16/24 08:00
Aspirin Low Dose EC [Aspir Low (Enteric Coated)] 81 mg PO DAILY
Zgoiwzity-Agb-Puyj [Femara] 2.5 mg PO DAILY
Pantoprazole [Protonix] 40 mg PO BID
10/16/24 18:00
Atorvastatin [Lipitor] 40 mg PO QPM
Escitalopram Oxalate [Lexapro] 20 mg PO QPM
Montelukast Sodium [Singulair] 10 mg PO QPM
Abnormal Lab Results
10/15/24 10/15/24
16:31 19:47
WBC 11.8 H 10^3/uL
(4.8-10.8)
RBC 3.07 L 10^6/uL
(4.20-5.40)
Hgb 9.1 L g/dL
(12.0-16.0)
Hct 28.8 L %
(37.0-47.0)
MCHC 31.6 L g/dL
(33.0-37.0)
RDW 18.1 H %
(11.5-14.5)
Sodium 134 L mmol/L
(135-145)
Potassium 2.9 L mmol/L
(3.5-5.1)
Chloride 94 L mmol/L 97 L mmol/L
(98-107) (98-107)
Carbon Dioxide 33 H mmol/L 32 H mmol/L
(22-30) (22-30)
BUN 28 H mg/dl 27 H mg/dl
(7-17) (7-17)
Creatinine 1.4 H mg/dL 1.4 H mg/dL
(0.6-1.0) (0.6-1.0)
Glucose 110 H mg/dl 114 H mg/dl
(70-99) (70-99)
Calcium 6.8 L* mg/dl 6.8 L* mg/dl
(8.4-10.2) (8.4-10.2)
Ionized Calcium 0.85 L mMOL/L
(1.15-1.33)
Total Protein 5.6 L g/dl
(6.3-8.2)
Albumin 3.1 L g/dl
(3.5-5.0)
10/15/24 16:31
10/15/24 19:47
Vital Signs
Initial and Last Documented VS:
Initial Vital Signs
Temp Pulse Resp BP Pulse Ox
97.5 F 67 17 95/56 98
10/15/24 14:30 10/15/24 14:30 10/15/24 14:30 10/15/24 14:30 10/15/24 14:30
Last Documented Vital Signs
Temp Pulse Resp BP Pulse Ox
97.5 F 82 14 108/73 95
10/15/24 14:30 10/15/24 20:15 10/15/24 20:15 10/15/24 20:00 10/15/24 20:00
<Gaurav Villeda MD - Last Filed: 10/15/24 18:56>
Orders/Labs/Results
Orders:
Orders
10/15/24 15:52
Electrocardiogram (*1) Urgent
Reason for Study: Other
Other Reason for Exam: jaw pain
EKG- Treatment ONCE
10/15/24 16:01
CT Head W/o Iv Contrast Urgent
Comment:
Reason For Exam: Left sided jaw swelling and pain
10/15/24 16:02
Ondansetron HCl [Zofran] 4 mg PO NOW STA
Oxycodone [Roxicodone] 10 mg PO NOW STA
10/15/24 16:20
0.9% Sodium Chloride 250 ml [Nss] 250 ml IV BOLUS
10/15/24 16:31
Basic Metabolic Panel Urgent
Complete Blood Count/No Diff Urgent
10/15/24 17:26
Add On- LAB Urgent
Tests Added?: plasma albumin
10/15/24 17:44
Calcium Gluconate 1,000 mg IV NOW STA
10/15/24 17:47
CT Facial Bones W/o Iv Contras Urgent
Comment:
Reason For Exam: left jaw pain
10/15/24 17:53
Morphine Sulfate 4 mg IV NOW STA
10/15/24 19:47
Admit/Transfer Patient As Directed
Co-Sign Provider:
Level of Care: Inpatient admission
Assign to:: Medical/Surgical
Physician / Group: Serge
Diagnosis: Left Mandible Subluxation, Hypocalcemia
Reason for Hospitalization: Left Mandible Subluxation, Hypocalcemia
Expected length of stay greater than two midnights?: Yes
ELOS- Estimated Length of Stay in days: 3
I certify the patient meets the requirements for IP care: Yes
Comprehensive Metabolic Panel Urgent
Ionized Calcium Urgent
PRN Pain Medication Management As Directed
May give lesser potent ordered pain med per pt: Yes
preference::
Protocol:: Medication orders for pain may be administered in a
manner that supports deferring to patient preference
when the pt is:
- Requesting an ordered lesser potent pain medication.
Least to most potent pain medications are defined
as: acetaminophen < NSAID < tramadol < opioids
(morphine, oxycodone, hydromorphone).
- Requesting a lesser dose of the same medication IF
ORDERED.
- Requesting a less intrusive route of administration
if both routes are prescribed by the provider (PO <
IV).
10/15/24 19:48
Code Status As Directed
Resuscitation Status: Full Code
10/15/24 20:35
Urine Calcium Urgent
Date Specimen was Collected: 10/15/24
Time Specimen was Collected: 20:34
10/15/24 21:04
Calcium Carbonate/Vitamin D3 [Oscal 500 + D] 500 mg PO BID
Diazepam [Valium] 2 mg PO TIDPRN PRN
Heparin 5,000 units SC Q12
Metoprolol [Lopressor] 25 mg PO BID
Tramadol HCl [Ultram] 50 mg PO Q6HPRN PRN moderate pain
10/15/24 21:04
ORAL MAXILLO FACIAL CONSULT Routine
Consulting Provider: David Abdullahi
Was physician already notified: Yes
Reason for Consult: Left Mandible Subluxation
TSH Reflex To Free T4 Routine
Uric Acid Routine
Vitamin D, 25-OH Routine
Activity As Directed
Activity Level: Ambulate
With Assistance
Drains- Urinary As Directed
Type: Nephrostomy
Location: Left
I/O [Intake/ Output] As Directed
Frequency: Per unit guidelines
Vital Signs As Directed
Frequency: Per unit guidelines
Oxygen Therapy [O2 Therapy] [RESP] Routine
Titrate/Wean O2 to maintain O2 sat greater than (%): 94
DX Deep Vein Thrombosis Video Routine
10/15/24 22:00
Acetaminophen [Tylenol] 1,000 mg PO TID
10/16/24 06:00
Basic Metabolic Panel IN AM
Complete Blood Count/No Diff IN AM
Magnesium IN AM
Phosphorus IN AM
Levothyroxine [Synthroid] 200 mcg PO DAILY @ 0600
10/16/24 08:00
Aspirin Low Dose EC [Aspir Low (Enteric Coated)] 81 mg PO DAILY
Rtmeiwams-Dwb-Tajr [Femara] 2.5 mg PO DAILY
Pantoprazole [Protonix] 40 mg PO BID
10/16/24 18:00
Atorvastatin [Lipitor] 40 mg PO QPM
Escitalopram Oxalate [Lexapro] 20 mg PO QPM
Montelukast Sodium [Singulair] 10 mg PO QPM
Abnormal Lab Results
10/15/24 10/15/24
16:31 19:47
WBC 11.8 H 10^3/uL
(4.8-10.8)
RBC 3.07 L 10^6/uL
(4.20-5.40)
Hgb 9.1 L g/dL
(12.0-16.0)
Hct 28.8 L %
(37.0-47.0)
MCHC 31.6 L g/dL
(33.0-37.0)
RDW 18.1 H %
(11.5-14.5)
Sodium 134 L mmol/L
(135-145)
Potassium 2.9 L mmol/L
(3.5-5.1)
Chloride 94 L mmol/L 97 L mmol/L
(98-107) (98-107)
Carbon Dioxide 33 H mmol/L 32 H mmol/L
(22-30) (22-30)
BUN 28 H mg/dl 27 H mg/dl
(7-17) (7-17)
Creatinine 1.4 H mg/dL 1.4 H mg/dL
(0.6-1.0) (0.6-1.0)
Glucose 110 H mg/dl 114 H mg/dl
(70-99) (70-99)
Calcium 6.8 L* mg/dl 6.8 L* mg/dl
(8.4-10.2) (8.4-10.2)
Ionized Calcium 0.85 L mMOL/L
(1.15-1.33)
Total Protein 5.6 L g/dl
(6.3-8.2)
Albumin 3.1 L g/dl
(3.5-5.0)
10/15/24 16:31
10/15/24 19:47
Vital Signs
Initial and Last Documented VS:
Initial Vital Signs
Temp Pulse Resp BP Pulse Ox
97.5 F 67 17 95/56 98
10/15/24 14:30 10/15/24 14:30 10/15/24 14:30 10/15/24 14:30 10/15/24 14:30
Last Documented Vital Signs
Temp Pulse Resp BP Pulse Ox
97.5 F 82 14 108/73 95
10/15/24 14:30 10/15/24 20:15 10/15/24 20:15 10/15/24 20:00 10/15/24 20:00
<Farzad Mcqueen MD, Resident - Last Filed: 10/15/24 21:10>
*Pulse Oximetry
SaO2: 98
Oxygen Mode of Delivery: Room air
Patient hypoxic: no
*Critical Care Note
Total Time (30-74mins, 75-104mins- exclusive of procedures): 60
<Farzad Mcqueen MD, Resident - Last Filed: 10/15/24 21:10>
Update Note
Update Note:
Problem List:
left-sided jaw swelling with pain and difficulty to speak
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
Plan:
EKG ordered
CBC and CMP ordered
CT of the head ordered
oxycodone for analgesia
Zofran for nausea and vomiting - patient has a history of nausea and vomiting on oxycodone and there are limited options for analgesics
Differential Diagnoses:
Parotiditis
Hypocalcemia secondary to parathyroid removal
acute sialoadenitis
temporomandibular joint disorder
giant cell arteritis
dental abscess
superficial thrombus due to hypercoagulable state secondary to malignancy
Radiology:
- head CT conducted on 10/15/2024:
1. Mild to moderate diffuse cerebral and cerebellar volume loss.
2. Mild to moderate white matter leukoaraiosis in both cerebral hemispheres.
3. Moderate bilateral hyperostosis frontalis interna.
- Facial bone CT conducted on 10/15/2024:
1. Moderate anterior and lateral subluxation of the left mandibular condylar head with adjacent high attenuation along the medial side of the mandibular condylar head. Diagnostic possibilities are (1) dislocation of the left temporomandibular
joint meniscus, (2) a crystal arthropathy with adjacent soft tissue calcification, or (3) an inflammatory arthropathy with surrounding synovitis.
2. Moderate left sphenoid sinusitis.
3. Severe discogenic degenerative disease at C4/C5 and C5/C6.
4. Severe right-sided facet joint arthrosis at C3/C4.
5. Previous total thyroidectomy.
EKG: normal sinus rhythm, right bundle branch block
Labs:
CBC with leukocytosis with a white blood cell count of 11.8. stable anemia compared to prior lab work
CMP notable for acute hypocalcemia with a calcium level of 6.8. ionized calcium of 0.85
Updates:
CBC shows stable anemia with marginal leukocytosis
CMP shows significant hypocalcemia with calcium of 6.8. this is markedly decreased compared to prior CMP's taken. Will give IV calcium
CT of the head unremarkable
CT of the facial bones showed moderate anterior and lateral subluxation of the left mandibular condyle or head with adjacent high attenuation along the medial side of the mandibular condyle or head. Possible dislocation of the left
temporomandibular joint meniscus, crystal arthropathy with adjacent soft tissue calcification, or inflammatory arthropathy with surrounding synovitis
patient to be admitted for continued management for severe hypocalcemia
ED Attending Note
<Farzad Mcqueen MD, Resident - Last Filed: 10/15/24 21:10>
-
Portions of this chart may have been created with voice recognition software.� Occasional wrong word or��sound alike� substitutions may have occurred due to the inherent limitations of voice recognition software.
<Gaurav Villeda MD - Last Filed: 10/15/24 18:56>
ED Attending Note
Patient seen and examined by attending physician: Yes
ED Attending Note:
I have seen and evaluated the patient with a [id number] encounter. I have spoken to the advance practicer provider and involved in the medical history, the physical exam, medical decision making.
Evaluation and management service: agree unless noted differently below.
Results interpretation: agree unless noted differently below.
Focused HPI: 78-year-old female with history as noted significant for pelvic mass with left hydronephrosis requiring nephrostomy tube who presents to the ER for evaluation of left jaw pain. Patient reports that symptoms started this morning and
have been constant since that time. She reports severe pain in the preauricular region worse with attempts at movement of the jaw. She says the jaw feels very stiff. She feels some localized swelling in the area. She has not noticed any redness
or rash. She denies any fever or chills or any other recent symptoms. She denies any trauma to the area.
Physical exam: Awake and alert. Vital signs within acceptable range. She has tenderness at the TMJ with palpable knot in the masseter muscle but no erythema, warmth, induration, crepitus. She is able to open the jaw to about 2 finger breaths,
further opening limited by pain. She has no tongue elevation, handling secretions, no stridor. No tenderness of the mastoid process, left external ear normal, canal clear and left TM normal.
Medical Decision Makin-year-old female presents with left-sided facial/upper regular pain as described above. Check CT of the area. Suspect this may be TMJ/muscle spasm. Will check labs. Reassess after the above.
Labs reviewed and CBC shows stable anemia, marginal but stable leukocytosis. Her CMP shows significant hypocalcemia with a calcium of 6.8�this number has been slowly downtrending over the past month. Certainly severe hypocalcemia could account for
muscle spasm. Plan to treat with IV calcium. Continue symptom control. CT is pending. Admit for continued management of severe hypocalcemia
Discharge Plan
Departure
Patient Disposition: Admit
Date of Disposition: 10/15/24
Time of Disposition: 18:54
Admit to doctor: Monika
Presentation/result/management discussed w/ accepting MD/DO: Hospitalist
Discharge Problem:
Hypocalcemia
Interventions
Interventions:
*Risk Screen - Suicide Last Done: 10/15/24 14:32
*General Assessment Last Done: 10/15/24 14:32
*Neglect/Abuse Screening Last Done: 10/15/24 14:32
*ED- Fall Risk Assessment Last Done: 10/15/24 20:48
*ED COVID-19 Vaccine History Last Done: 10/15/24 14:32
*Nursing Disposition Last Done: 10/15/24 20:48
ED-EENT Assessment Last Done: 10/15/24 17:12
ED- Cardiac Assessment Last Done: 10/15/24 18:17
Discharge Date and Time
Discharge Date/Time: 10/15/24 20:50
[2024-10-15] MEDS: ROXICODONE 10 MG PO (16:13)
[2024-10-15] MEDS: ZOFRAN 4 MG PO (16:13)
[2024-10-15] MEDS: NSS 250 IV (16:33)
[2024-10-15 16:39] LABS: Hematocrit 28.8 % (37.0-47.0); Hemoglobin 9.1 g/dL (12.0-16.0); Mean Corp Hgb Conc. 31.6 g/dL (33.0-37.0); Mean Corpuscular Volume 93.8 fL (81.0-99.0); Platelet Count 204 10^3/uL (130-400); Red Cell Dist. Width 18.1 % (11.5-14.5)
[2024-10-15 16:46] VITALS: BMI 25.7
[2024-10-15 16:57] LABS: Blood Urea Nitrogen 28 mg/dl (7-17); Calcium 6.8 mg/dl (8.4-10.2); Carbon Dioxide 33 mmol/L (22-30); Chloride 94 mmol/L (98-107); Estimated Creatinine Clearance 29 ml/min; Glucose 110 mg/dl (70-99); Sodium 135 mmol/L (135-145); eGFR 38.27
[2024-10-15] MEDS: CALCIUM GLUCONATE 1000 MG IV (18:00)
[2024-10-15] MEDS: MORPHINE SULFATE 4 MG IV (18:00)
[2024-10-15 18:14] VITALS: BP 106/68
[2024-10-15 19:00] VITALS: BP 107/72
--- NOTE | 2024-10-15 19:54 | HPS.HSE ---
Family Physician
-
Family Physician: Samson Davenport
Chief Complaint
-
Jaw Pain
History of Present Illness
Patient is a 78y F with PMH significant for spindle cell cancer who presents to ED complaining of L jaw pain since yesterday. Patient states the pain started anterior to the L ear yesterday. No noted injury or trauma. She reports fullness /
tenderness anterior to the ear and pain that is worse with eating, talking, etc. She notes that pain has persisted for the past 24 hours. No fevers / chills. No prior history of similar symptoms.
Patient states that she has some difficulty moving the jaw due to pain / discomfort.
Patient was admitted to on multiple recent occasions. 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
Admitted in September for pneumonia / effusion and ascites. She was treated with abx, paracentesis and thoracentesis.
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 Teixeira). She had been scheduled for debulking surgery; however, this was deferred based on recent clinical issues, ascites, etc.
Patient reports that she has since been started on anti-estrogen medication and has taken maybe two doses so far.
Medical History
Past Medical History
Past Medical History: Reports Other
Additional Past Medical History:
Spindle Cell Cancer
Upper GI bleed
Bursitis of left hip
Anxiety
SVT
Iron deficiency anemia
Hypertension
Osteoarthritis
GERD
Leiomyoma of uterus
Thyroid cancer
Hypothyroidism
Herniated disc
Asthma
Arthritis
IBS
Past Surgical History: Reports Other
Additional Past Surgical History:
Appendectomy
Thyroidectomy
Cholecystectomy
Cataract extraction
Left knee replacement
Right knee replacement
Paraesophageal hernia repair with mesh
Left ureteral stent
Social History
Tobacco: Non-smoker
Alcohol: None
Drug: None
Living: With Family
Family History
Family History: Not pertinent
Allergies / Home Medications
Allergies reflects when Allergies were last updated in [employer].
Home Medications with original date entered in [employer]
Allergy/Medication List:
Allergies
Allergy/AdvReac Type Severity Reaction Status Date / Time
codeine (Codeine) Allergy vomiting Verified 10/15/24 14:31
erythromycin base Allergy vomiting Verified 10/15/24 14:31
(Erythromycin Base)
hydrocodone (Hydrocodone) Allergy swelling, Verified 10/15/24 14:31
vomiting
Iodinated Contrast Media (IV Allergy Swelling Verified 10/15/24 14:31
Dye, Iodine Containing
Contrast )
NSAIDS (Non-Steroidal Allergy INTERNAL Verified 10/15/24 14:31
Anti-Inflamma BLEEDING,
ANEMIA
oxycodone Allergy Vomiting Verified 10/15/24 14:31
Home Medications
montelukast 10 mg tablet 10 mg PO QPM Allergies 03/31/11
escitalopram oxalate 20 mg tablet 20 mg PO QPM Mental Health/Anxiety 08/07/24
pantoprazole 40 mg tablet,delayed release 40 mg PO BID Gastrointestinal Issue 08/07/24
aspirin 81 mg tablet,delayed release 81 mg PO DAILY Blood clot prevention/tx #0 tabs 08/16/24
dicyclomine 10 mg capsule 10 mg PO BID PRN Muscle Spasms #0 caps 08/16/24
levothyroxine 200 mcg tablet 200 mcg PO DAILY @ 0600 Thyroid #30 tabs 08/16/24
atorvastatin 40 mg tablet 40 mg PO QPM High cholesterol 30 days #30 tabs 08/30/24
loratadine 10 mg tablet 10 mg PO DAILY Allergies 30 days #30 tabs 08/30/24
calcium polycarbophil 625 mg tablet (FiberCon) 1,250 mg PO BIDPRN PRN constipation 09/12/24
loperamide 2 mg capsule 2 mg PO DAILYPRN PRN loose stools 09/12/24
metoprolol tartrate 50 mg tablet 25 mg PO BID Blood Pressure 09/12/24
fluticasone propionate 50 mcg/actuation nasal spray,suspension (Flonase Allergy Relief) 1 spray intranasal DAILY #16 grams 09/15/24
alprazolam 0.25 mg tablet 0.25 mg PO Q8HPRN PRN anxiety 3 days #12 tabs 09/18/24
furosemide 20 mg tablet 20 mg PO DAILY PRN Fluid Retention/Swelling #0 tabs 09/18/24
Lactobac no.2-Bifidobac no.1-S. thermo 112.5 billion cell capsule (Visbiome) 1 cap PO DAILY 10/15/24
acetaminophen 325 mg tablet 650 mg PO DAILYPRN PRN mild pain 10/15/24
cholestyramine (with sugar) 4 gram powder for susp in a packet 1 ea PO QPM 10/15/24
letrozole 2.5 mg tablet 2.5 mg PO DAILY 10/15/24
therapeutic multivitamin 1 tab PO QPM 10/15/24
tramadol 50 mg tablet 50 mg PO DAILYPRN PRN moderate pain 10/15/24
Review of Systems
-
History Source: Patient
A 12 point ROS was completed and negative except as noted: Yes
Constitutional: Reports Fatigue; Denies Fever or Chills
EENT: Reports Other (L jaw pain / fullness)
Respiratory: Denies Cough or Trouble Breathing
Cardiac: Denies Chest Pain or Palpitations
Abdomen/GI: Denies Abdominal Pain, Nausea, Vomiting or Diarrhea
: Reports Other (L PCN); Denies Dysuria or Flank Pain
Neurological: Denies Dizzy or Headache
Psych: Denies Depression or Anxiety
Physical Exam
Vital Signs
Vital Signs
Temp Pulse Resp BP Pulse Ox
97.5 F 83 19 107/72 94
10/15/24 14:30 10/15/24 19:30 10/15/24 19:30 10/15/24 19:00 10/15/24 19:30
Physical Exam
General: Other (78y F in mild distress due to pain.)
HEENT: Moist mucous membranes, PERRLA and Other (Fullness over L mandibular head. Pos tenderness. Decreased ROM at L TMJ.)
Respiratory: Clear; No Wheezes, Rales or Rhonchi
Cardiac: S1/S2 and Regular Rhythm; No Murmur
GI: Other (Abdomen is distended and firm. No focal tenderness. No significant changes per patient.)
Genito-urinary: Other (L PCN in place draining yellow urine.)
Musculoskeletal: No Clubbing, No Cyanosis and Other (b/l LE edema)
Neuro: AO x 3
Laboratory Results
-
10/15/24 16:31
Laboratory Results
Total Bilirubin Cancelled 10/15/24 16:31
AST Cancelled 10/15/24 16:31
ALT Cancelled 10/15/24 16:31
Alkaline Phosphatase Cancelled 10/15/24 16:31
Impression/Plan
-
A/P: Patient is a 78y F with PMH significant for spindle cell cancer - ? recurrence of leiomyosarcoma - who presents to ED complaining of L jaw pain.
Left Mandible Subluxation
- Admit for further evaluation and treatment.
- Evident prominence and tenderness over the L TMJ area.
- CT scan done in the ED shows subluxation of the L mandibular head with adjacent high attenuation - ? crystal or inflammatory arthropathy.
- Pain control / supportive care.
- Consult placed for OMFS for further recommendations.
Hypocalcemia
- Ca level = 6.8. Not classic muscle spasm / tetany. Calcium has been similarly low in the recent past.
- Continue Ca replacement.
- Follow-up Vit D, PO4 levels, etc.
- Patient was treated for HYPERcalcemia in August with IVFs and Pamidronate.
- Since has had HYPOcalcemia requiring supplementation.
- Follow lytes and adjust treatment as needed.
Spindle Cell Cancer
Ascites
- Continue letrozole.
- Ascites presumed malignant though pathology negative on recent paracentesis.
- Abdomen significantly distended on exam - though no significant changes per patient.
- May benefit from repeat paracentesis.
- Follow-up with Oncology after discharge.
ASCVD / CVA
- Stable. No new neurologic deficits.
- Continue ASA, statin, etc.
CKD III
- Stable. Renal function is at / near known baseline. Follow for changes.
Left Ureteral Obstruction
- s/p prior ureteral stent. Now with L PCN in place.
- Maintain urostomy.
Anemia of Chronic Disease / Chronic Iron Deficiency
- Stable. Hgb is at / better than recent baseline.
- No recent bleeding. Follow for changes.
GERD / History of GI Bleeding
- Patient intolerant of NSAIDs / oral steroids given history of GI bleeding.
- Continue PPI.
- Follow for any new symptoms.
DVT Prophylaxis: Subcut Heparin
Code Status: Full
[2024-10-15 20:00] VITALS: BP 108/73
[2024-10-15 20:19] LABS: ALT (SGPT) 14 U/L (0-35); AST (SGOT) 25 U/L (14-36); Albumin 3.1 g/dl (3.5-5.0); Alkaline Phosphatase 80 U/L (38-126); Blood Urea Nitrogen 27 mg/dl (7-17); Calcium 6.8 mg/dl (8.4-10.2); Carbon Dioxide 32 mmol/L (22-30); Chloride 97 mmol/L (98-107); Estimated Creatinine Clearance 29 ml/min; Glucose 114 mg/dl (70-99); Potassium 2.9 mmol/L (3.5-5.1); Sodium 134 mmol/L (135-145); Total Protein 5.6 g/dl (6.3-8.2); eGFR 38.27
[2024-10-15 21:10] VITALS: BP 123/71; BMI 29.6
[2024-10-15] MEDS: ULTRAM 50 MG PO (21:58)
[2024-10-15] MEDS: TYLENOL 1000 MG PO (21:59)
[2024-10-15] MEDS: HEPARIN 5000 UNITS SC (22:00)
[2024-10-15] MEDS: LOPRESSOR 25 MG PO (22:09)
[2024-10-15] MEDS: OSCAL 500 + D PO (22:09)
[2024-10-15 22:25] LABS: Uric Acid 8.6 mg/dl (2.5-6.2)
[2024-10-15 23:00] VITALS: BP 112/65
[2024-10-15] MEDS: VALIUM 2 MG PO (23:08)
[2024-10-16] MEDS: CALCIUM GLUCONATE 100 IV ×2 (00:04→11:49)
[2024-10-16] MEDS: KCL 270 MEQ IV ×2 (00:08→17:24)
[2024-10-16 00:32] LABS: Magnesium 1.6 mg/dl (1.6-2.3)
--- NOTE | 2024-10-16 04:07 | W.PN.UPDATE ---
Update Note
Progress Note Update
RN reports some blood noted on dressing to Left nephrostomy site. urine yellow. Will monitor closely.
[2024-10-16] MEDS: SYNTHROID 200 MCG PO (05:38)
[2024-10-16] MEDS: ULTRAM 50 MG PO ×3 (05:38→22:03)
[2024-10-16 07:10] VITALS: BP 104/63
[2024-10-16 07:36] LABS: Hematocrit 22.1 % (37.0-47.0); Hemoglobin 7.3 g/dL (12.0-16.0); Mean Corp Hgb Conc. 33.0 g/dL (33.0-37.0); Mean Corpuscular Volume 94.0 fL (81.0-99.0); Platelet Count 188 10^3/uL (130-400); Red Cell Dist. Width 17.5 % (11.5-14.5)
[2024-10-16 08:07] LABS: Blood Urea Nitrogen 30 mg/dl (7-17); Calcium 6.7 mg/dl (8.4-10.2); Carbon Dioxide 32 mmol/L (22-30); Chloride 95 mmol/L (98-107); Estimated Creatinine Clearance 30 ml/min; Glucose 91 mg/dl (70-99); Magnesium 1.5 mg/dl (1.6-2.3); Potassium 3.2 mmol/L (3.5-5.1); Sodium 134 mmol/L (135-145); eGFR 32.60
[2024-10-16] MEDS: LOPRESSOR 25 MG PO ×2 (09:03→20:09)
[2024-10-16] MEDS: MAGNESIUM SULFATE 50 IV (09:03)
[2024-10-16] MEDS: PROTONIX 40 MG PO ×2 (09:04→20:10)
[2024-10-16] MEDS: ASPIR LOW (ENTERIC COATED) 81 MG PO (09:05)
[2024-10-16] MEDS: TYLENOL 1000 MG PO ×3 (09:05→22:03)
[2024-10-16] MEDS: OSCAL 500 + D 500 MG PO ×2 (09:05→20:09)
[2024-10-16] MEDS: FEMARA 2.5 MG PO (09:06)
[2024-10-16] MEDS: HEPARIN 5000 UNITS SC ×2 (09:06→20:09)
--- NOTE | 2024-10-16 12:05 | CM ---
CM following re: discharge planning.
Reviewed pt's chart, met with pt.
Pt is a 78 year old female, admitted with primary dx of Left Mandible Subluxation. 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
Pt reports she lives with 2SH, 1 step to enter, has 2 supportive children. pt reports she ambulates with a walker, current with [facility], was at [facility] and [facility] acute rehab in the past. Pt made it very clear she 'went to [facility]
acute rehab and [facility], they beautiful places but I am requesting to return back home and [facility] supposed to start services today'.
A referral to [facility] made.
PCP: Samson Davenport
Pharmacy: [facility]
D/C plan: per pt's request, home with [facility] and family support.
CM will follow with discharge plan updates as hospitalization progresses
--- NOTE | 2024-10-16 12:15 | W.PN.HOSP.TC ---
Today's Communication/Plan
-
monitor vitals
see plan
replete mag,K and calcium
gyroscope repairer OMFS notified on admission and by me this morning. awaiting response
start prednisone, pain control, ice application
Assessment / Plan
Assessment / Plan
General: No distress
HEENT: Moist mucous membranes, PERRLA and Other (Fullness over L mandibular head. Pos tenderness. Decreased ROM at L TMJ.)
Respiratory: Clear; No Wheezes, Rales or Rhonchi
Cardiac: S1/S2 and Regular Rhythm; No Murmur
GI: Other (Abdomen is distended and firm. No focal tenderness. No significant changes per patient.)
Genito-urinary: Other (L PCN in place draining yellow urine.)
Musculoskeletal: Other (b/l LE edema)
Neuro: AO x 3
Left Mandible Subluxation
- Evident prominence and tenderness over the L TMJ area.
- CT scan done in the ED shows subluxation of the L mandibular head with adjacent high attenuation - ? crystal or inflammatory arthropathy.
rest,ice application. pain control. start prednisone
- Pain control / supportive care.
- Consult placed for OMFS for further recommendations.
Hypocalcemia
Continue with calcium repletion
Hypomagnesemia, replete
Hypokalemia, replete
- Follow-up Vit D, PO4 levels, etc.
- Patient was treated for HYPERcalcemia in August with IVFs and Pamidronate.
- Since has had HYPOcalcemia requiring supplementation.
- Follow lytes and adjust treatment as needed.
Spindle Cell Cancer
Ascites
- Continue letrozole.
- Ascites presumed malignant though pathology negative on recent paracentesis.
- May benefit from repeat paracentesis.
- Follow-up with Oncology after discharge. Patient to follow-up with Dr. Teixeira at [facility]
Hyponatremia
Monitor
ASCVD / CVA
- Stable. No new neurologic deficits.
- Continue ASA, statin, etc.
CKD III
- Stable. Renal function is at / near known baseline. Follow for changes.
Left Ureteral Obstruction
- s/p prior ureteral stent. Now with L PCN in place.
- Maintain urostomy.
Anemia of Chronic Disease / Chronic Iron Deficiency
- Stable. Hgb is at / better than recent baseline.
- No recent bleeding. Follow for changes.
GERD / History of GI Bleeding
- Patient intolerant of NSAIDs / oral steroids given history of GI bleeding.
- Continue PPI.
- Follow for any new symptoms.
History of hypothyroidism
Continue Synthroid, recently changed per patient. TSH high here, advised patient to follow-up with primary care provider soon outpatient for possible repeat test
DVT Prophylaxis: Subcut Heparin
Code Status: Full
I spent a total of 52 minutes with the patient or on the floor. More than 50% of this time involved counseling and coordination of care.
Anticipated Discharge: 24 - 48 hours
Subjective/Interval History
-
Date of Service: October 16, 2024
Still has some pain
Objective Data
-
Labs:
Laboratory Results
10/16/24
06:43
WBC 10.1
Hgb 7.3 L
Hct 22.1 L
Plt Count 188
Sodium 134 L
Potassium 3.2 L
Chloride 95 L
Carbon Dioxide 32 H
BUN 30 H
Creatinine 1.6 H
Glucose 91
Calcium 6.7 L*
Vital Signs:
Vital Signs
Temp Pulse Resp BP Pulse Ox
97.9 F 73 16 104/63 94
10/16/24 07:10 10/16/24 09:03 10/16/24 07:10 10/16/24 09:03 10/16/24 08:00
I&O
10/15/24 10/16/2425
06:59 06:59 06:59
Intake Total 240 / 240
Output Total
Balance 215 / 215
[2024-10-16 12:41] LABS: Vitamin D, 25-OH*** < 12.8 ng/mL (30-80)
[2024-10-16] MEDS: DELTASONE 40 MG PO (14:30)
[2024-10-16 15:05] VITALS: BP 103/54
[2024-10-16 16:00] VITALS: BP 119/62; PULSE 71; O2SAT 97
[2024-10-16] MEDS: SINGULAIR 10 MG PO (17:27)
[2024-10-16] MEDS: LIPITOR 40 MG PO (17:27)
[2024-10-16] MEDS: LEXAPRO 20 MG PO (17:27)
[2024-10-16 23:16] VITALS: BP 105/53
[2024-10-17] MEDS: SYNTHROID 200 MCG PO (05:47)
[2024-10-17 07:15] VITALS: BP 104/55
[2024-10-17 07:48] LABS: Hematocrit 20.0 % (37.0-47.0); Hemoglobin 6.3 g/dL (12.0-16.0); Mean Corp Hgb Conc. 31.5 g/dL (33.0-37.0); Mean Corpuscular Volume 93.0 fL (81.0-99.0); Nucleated Red Blood Cells % 0 %; Platelet Count 184 10^3/uL (130-400); Red Cell Dist. Width 17.2 % (11.5-14.5)
[2024-10-17 08:07] LABS: ALT (SGPT) 13 U/L (0-35); AST (SGOT) 21 U/L (14-36); Albumin 2.8 g/dl (3.5-5.0); Alkaline Phosphatase 82 U/L (38-126); Blood Urea Nitrogen 30 mg/dl (7-17); Calcium 6.9 mg/dl (8.4-10.2); Carbon Dioxide 30 mmol/L (22-30); Chloride 94 mmol/L (98-107); Estimated Creatinine Clearance 30 ml/min; Glucose 118 mg/dl (70-99); Magnesium 1.9 mg/dl (1.6-2.3); Potassium 3.7 mmol/L (3.5-5.1); Sodium 131 mmol/L (135-145); Total Protein 5.2 g/dl (6.3-8.2); eGFR 32.60
[2024-10-17] MEDS: TYLENOL 1000 MG PO ×3 (08:40→21:14)
[2024-10-17] MEDS: FEMARA 2.5 MG PO (08:40)
[2024-10-17] MEDS: OSCAL 500 + D 500 MG PO (08:41)
[2024-10-17] MEDS: DELTASONE 40 MG PO (08:41)
[2024-10-17] MEDS: ASPIR LOW (ENTERIC COATED) 81 MG PO (08:41)
[2024-10-17] MEDS: HEPARIN SC ×2 (08:41→09:46)
[2024-10-17] MEDS: PROTONIX 40 MG PO ×2 (08:41→21:11)
[2024-10-17] MEDS: LOPRESSOR PO ×3 (08:42→21:10)
--- NOTE | 2024-10-17 09:54 | PTCARENOTE ---
pt with swelling above nephrostomy site and bleeding from site as well. MD made aware. heparin held. urine yellow within nephrostomy bag. pt states jaw pain improved. pt with hgb of 6.3 and hct of 20 this morning. type and screen completed and 1
unit of PRBC ordered. will hang once able.
[2024-10-17 11:22] LABS: Iron 35 ug/dl (37-170); Total Iron Binding Capacity 174 ug/dl (265-497)
--- NOTE | 2024-10-17 11:34 | W.PN.HOSP.TC ---
Today's Communication/Plan
-
Monitor vital signs see plan
Transfuse PRBC
CT abdomen/pelvis
IR evaluation
Continue prednisone
Replete calcium
Check iron panel
Assessment / Plan
Assessment / Plan
General: No distress
HEENT: Moist mucous membranes, PERRLA and Other (Fullness over L mandibular head. Pos tenderness. Decreased ROM at L TMJ.)
Respiratory: Clear; No Wheezes, Rales or Rhonchi
Cardiac: S1/S2 and Regular Rhythm; No Murmur
GI: Other (Abdomen is distended and firm. No focal tenderness.)
Genito-urinary: Other (L PCN in place draining yellow urine.)
Musculoskeletal: Other (b/l LE edema)
Neuro: AO x 3
Left Mandible Subluxation
- Evident prominence and tenderness over the L TMJ area.
- CT scan done in the ED shows subluxation of the L mandibular head with adjacent high attenuation - ? crystal or inflammatory arthropathy.
rest,ice application. pain control. started prednisone
- Pain control / supportive care.
- Consult placed for OMFS for further recommendations however no reply. ENT aware and will see
Hypocalcemia
Continue with calcium repletion
Hypomagnesemia, replete
Hypokalemia, replete
- Follow-up Vit D, PO4 levels, etc.
- Patient was treated for HYPERcalcemia in August with IVFs and Pamidronate.
- Since has had HYPOcalcemia requiring supplementation.
- Follow lytes and adjust treatment as needed.
Left Ureteral Obstruction
- s/p prior ureteral stent. Now with L PCN in place. appears to be bleeding. asked IR to evaluate. Requested CT abdomen/pelvis. Ordered
- Maintain urostomy.
Acute on chronic anemia likely multifactorial from acute blood loss, anemia of Chronic Disease / Chronic Iron Deficiency
Appears to have some bleeding from left PCN, IR requested CT abdomen/pelvis which is ordered
Transfuse 1 unit PRBC. Antibody positive on type and screen.
Monitor hemoglobin
Check iron panel
Spindle Cell Cancer
Ascites
- Continue letrozole.
- Ascites presumed malignant though pathology negative on recent paracentesis.
- May benefit from repeat paracentesis.
- Follow-up with Oncology after discharge. Patient to follow-up with Dr. Teixeira at [facility]
Hyponatremia
Monitor
ASCVD / CVA
- Stable. No new neurologic deficits.
- Continue ASA, statin, etc.
CKD III
- Stable. Renal function is at / near known baseline. Follow for changes.
GERD / History of GI Bleeding
- Patient intolerant of NSAIDs / oral steroids given history of GI bleeding.
- Continue PPI.
- Follow for any new symptoms.
History of hypothyroidism
Continue Synthroid, recently changed per patient. TSH high here, advised patient to follow-up with primary care provider soon outpatient for possible repeat test
DVT Prophylaxis: Subcut Heparin, hold given bleeding
Code Status: Full
I spent a total of 54 minutes with the patient or on the floor. More than 50% of this time involved counseling and coordination of care.
Anticipated Discharge: > 48 hours
Subjective/Interval History
-
Date of Service: October 17, 2024
denies pain
Objective Data
-
Labs:
Laboratory Results
10/17/24
07:04
WBC 10.3
Hgb 6.3 L*
Hct 20.0 L*
Plt Count 184
Sodium 131 L
Potassium 3.7
Chloride 94 L
Carbon Dioxide 30
BUN 30 H
Creatinine 1.6 H
Glucose 118 H
Calcium 6.9 L*
Total Bilirubin 0.6
AST 21
ALT 13
Alkaline Phosphatase 82
Vital Signs:
Vital Signs
Temp Pulse Resp BP Pulse Ox
97.8 F 72 18 94/53 94
10/17/24 07:15 10/17/24 07:15 10/17/24 07:15 10/17/24 08:52 10/17/24 07:15
I&O
10/16/24 10/17/24 10/18/24
06:59 06:59 06:59
Intake Total 240 / 240 1620 / 1620
Output Total 55 / 55
Balance 215 / 215 1565 / 1565
--- NOTE | 2024-10-17 11:47 | W.PN.UPDATE ---
Addendum entered and electronically signed by LAURE Stewart 10/17/24 15:41:
Drain looks OK. IR changed the dressing and will keep an eye on it. It looks like some ascites is in the paracolic gutter around the drain and the tract is probably friable so looks like draining blood tinged ascites. Not quentin blood
Original Note:
Update Note
Progress Note Update
IR consulted regarding bleeding around nephrostomy tube. Tube draining clear yellow urine. CT scan reviewed, drain in good position. No need for IR change at this time
[2024-10-17] MEDS: CALCIUM GLUCONATE 100 IV (12:16)
[2024-10-17] MEDS: COLACE PO (12:18)
[2024-10-17] MEDS: MIRALAX PO (12:18)
--- NOTE | 2024-10-17 12:35 | CM ---
Patient seen at bedside on 2 north, going to abdominal CT scan per nursing await updates. Patient plan is for home with [facility] and family supports. CM will continue to follow for discharge planning needs.
Plan; home with [facility], confirm referral and acceptance.
--- NOTE | 2024-10-17 14:53 | PN.CDI ---
CDI
- -
CDI:
Physician Documentation Request
Admit Date: 10/15/24 20:27
Dear Doctor Cuco,
Please review the following and provide your response in the progress notes.
Clinical Indicators:
The diagnosis of abdominal and pelvic masses consistent with known spindle cell malignancy was included in the signed 10/17 CT Abd/Pel.
- 10/17 PN 'Spindle Cell Cancer' without specificity
Please indicate in your progress notes if you are in agreement that the above diagnosis is valid for this patient:
____ - Spindle cell cancer of the abdomen and pelvis is a valid diagnosis (Please include it in your progress notes)
____ - Spindle cell cancer of the abdomen and pelvis is not a valid diagnosis for this patient
____ - Other (please specify)
Use of terms such as suspected, likely, concern for, or probable are acceptable for a diagnosis that is being evaluated, monitored or treated as if it exists and can be coded in the inpatient setting, when documented at the time of discharge.
Thank you,
Fercho Beck RN
CDI Specialist
Please use your independent medical judgment in providing your response.
[2024-10-17 15:00] VITALS: BP 111/56
[2024-10-17 15:58] LABS: Ferritin 899.0 ng/ml (11.1-264.0)
[2024-10-17 16:12] LABS: Vitamin B12 934 pg/ml (239-931)
--- NOTE | 2024-10-17 16:56 | W.CON.OTO ---
Otolaryngology Consult
Consult
Date/Time Consultation Requested: 10/17/24 8:00am
Date/Time Consultation Performed: 10/17/24 4:30pm
Requesting Provider: Dr. Norwood
Performing Provider: Dr. Diego
Reason for Consultation: TMJ pain
Chief Complaint
Left TMJ pain
History of Present Illness
This is a this is a very pleasant 78-year-old woman who was admitted to [facility] on 10/15/2024 with acute onset spontaneous left temporomandibular joint swelling and pain. This was complicated by trismus and decreased oral intake and
intense pain. She has had several presentations to [facility] recently related to spindle cell carcinoma, prior leiomyosarcoma and hypocalcemia. A facial bone CT was done on the day of admission which demonstrated a widened left TMJ joint
space without bony erosion with a subluxed left TMJ. She was admitted to the hospital for further evaluation and monitoring. ENT was initially contacted on 10/15 and we had recommended discussing with OMFS as they typically treat TMJ disorder
however the hospitalist group has had a hard time getting a hold of them. ENT reached back out to the hospitalist group to close the loop for this patient's care and was asked if we would come by to consult on patient.
Since admission the patient is feeling drastically better and the swelling has reduced in size markedly. She says she has no trouble swallowing and can tolerate foods and liquids of all consistencies. This has never happened in the past. No
otologic symptoms. She has no other polyarthropathies or areas of arthritis. No known gout disease. She does not recall a difficult meal prior to this occurring. No prior head or neck surgery.
Medical History
Past Medical History: Other (Spindle cell carcinoma, leiomyosarcoma, anemia of chronic disease)
Past Surgical History: Other
Additional Past Surgical History:
leiomyosarcoma
Patient Allergies:
Allergies
Allergy/AdvReac Type Severity Reaction Status Date / Time
codeine (Codeine) Allergy vomiting Verified 10/15/24 14:31
erythromycin base Allergy vomiting Verified 10/15/24 14:31
(Erythromycin Base)
hydrocodone (Hydrocodone) Allergy swelling, Verified 10/15/24 14:31
vomiting
Iodinated Contrast Media (IV Allergy Swelling Verified 10/15/24 14:31
Dye, Iodine Containing
Contrast )
NSAIDS (Non-Steroidal Allergy INTERNAL Verified 10/15/24 14:31
Anti-Inflamma BLEEDING,
ANEMIA
oxycodone Allergy Vomiting Verified 10/15/24 14:31
Home Medications / Current Medications:
�Medication �Instructions �Recorded
Lactobac no.2-Bifidobac no.1-S. 1 cap PO DAILY 10/15/24
thermo 112.5 billion cell capsule
(Visbiome)
acetaminophen 325 mg tablet 650 mg PO DAILYPRN PRN mild pain 10/15/24
cholestyramine (with sugar) 4 gram 1 ea PO QPM 10/15/24
powder for susp in a packet
letrozole 2.5 mg tablet 2.5 mg PO DAILY 10/15/24
therapeutic multivitamin 1 tab PO QPM 10/15/24
tramadol 50 mg tablet 50 mg PO DAILYPRN PRN moderate pain 10/15/24
Physical Exam
Vitals / Labs:
Vital Signs
Temp 97.9 F 10/17/24 15:00
Temp route: Oral 10/17/24 15:00
Pulse 73 10/17/24 15:00
Resp Rate 18 10/17/24 15:00
Blood pressure 111/56 10/17/24 15:00
Blood pressure extremity used: Left upper arm 10/17/24 15:00
Position: Lying 10/17/24 15:00
MAP (cuff-Kristian Monitor) 85 10/15/24 20:00
SaO2 94 10/17/24 15:00
Oxygen Mode of Delivery Room air 10/17/24 15:00
Pulse Ox at Rest 97 10/16/24 16:00
Acceptable pain level during hospitalization? 0 10/15/24 14:31
Can the patient verbally communicate their pain? Yes 10/17/24 08:10
Pain scale ratin 10/17/24 08:10
Actual Weight 80.694 kg 10/15/24 21:10
Body Mass Index (BMI) 29.6 10/15/24 21:10
Sitting- Blood Pressure 119/62 10/16/24 16:00
Sitting- Pulse 71 10/16/24 16:00
Lab Results
10/17/24 07:04
10/17/24 07:04
Exam:
Otolaryngology specialty specific physical exam: No acute distress. Patient resting comfortably in bed. Bilateral external auditory canals and pinna intact and normal. Tympanic membranes intact bilaterally. No effusions. Left temporomandibular
joint and preauricular region all edema and swelling. Tenderness to palpation over left TMJ. Approximately 3 cm trismus limited by pain. Oral cavity and oropharynx otherwise normal. Neck grossly normal.
Assessment / Plan
Left temporomandibular joint disorder
This is a new problem with uncertain prognosis that is potentially high risk so patient was acting limited oral intake. She appears to be recovering well right now with conservative measures and pain control. I recommend continuing these and
transitioning to Celebrex 200 mg once daily as needed for left TMJ pain. We discussed the results of her CT scan together and I think that an MRI face/orbit would be helpful to further evaluate that left TMJ joint space. However, the patient tells
me she is very claustrophobic and this will be challenging to undergo at this time. Holding off on the MRI at this time is reasonable. I have also given her brochures and contact information for 3 TMJ pain specialists that our practice commonly
refers to including Rima Rubio DMD. She can pursue these on an outpatient basis. We will follow-up with her within a month of discharge from the hospital to see how we can additionally help. If no relief at that time and if additional TMJ
consult feels the MRI will be helpful we will make arrangements then.
Data Reviewed
Radiology: Image Personally Visualized and interpreted
CT Scan: Image Personally Visualized and interpreted (Left TMJ space widening without bony erosion. Left temporomandibular joint subluxation but within confines of joint. Anterior external auditory canal intact. Right TMJ grossly normal.), Report
Reviewed by me and Discussed with Patient
Lab Data: Labs Reviewed by me (I have reviewed 2 labs ordered by providers external to practice: WBC 12.0 suggesting against acute infection and hemoglobin 8.1 consistent with the patient's anemia of chronic disease.)
[2024-10-17] MEDS: SINGULAIR 10 MG PO (17:28)
[2024-10-17] MEDS: LEXAPRO 20 MG PO (17:28)
[2024-10-17] MEDS: LIPITOR 40 MG PO (17:28)
--- NOTE | 2024-10-17 17:30 | PTCARENOTE ---
pt refused stool softeners this afternoon despite stool burden on CT being explained. states she has hx of IBS and she is not opening that can of worms. made aware. RN reached out to blood bank. still waiting on [facility] deliver the unit due
to patient having antibodies.
pt respoken to at 1740 and is willing to take colace. MAR updated.
[2024-10-17] MEDS: COLACE 100 MG PO ×2 (17:41→21:10)
[2024-10-17 18:44] LABS: Folate 4.6 ng/ml (2.76-20)
[2024-10-17 20:46] VITALS: BP 107/55
[2024-10-17 20:59] VITALS: BP 107/55
[2024-10-17 21:02] VITALS: BP 104/54
[2024-10-17] MEDS: OSCAL 500 + D PO (21:14)
[2024-10-17 23:05] VITALS: BP 102/55
[2024-10-18 00:03] VITALS: BP 107/57
[2024-10-18] MEDS: SYNTHROID 200 MCG PO (05:15)
[2024-10-18 07:10] VITALS: BP 102/59
[2024-10-18] MEDS: DELTASONE 40 MG PO (07:59)
[2024-10-18] MEDS: COLACE 100 MG PO ×2 (07:59→20:41)
[2024-10-18] MEDS: ASPIR LOW (ENTERIC COATED) 81 MG PO (07:59)
[2024-10-18] MEDS: OSCAL 500 + D 500 MG PO ×2 (08:00→20:41)
[2024-10-18] MEDS: LOPRESSOR PO ×2 (08:00→20:46)
[2024-10-18] MEDS: TYLENOL 1000 MG PO ×3 (08:00→22:24)
[2024-10-18] MEDS: PROTONIX 40 MG PO ×2 (08:00→20:41)
[2024-10-18] MEDS: FEMARA 2.5 MG PO (08:00)
[2024-10-18] MEDS: MIRALAX PO (08:01)
[2024-10-18] MEDS: LOPRESSOR 25 MG PO (08:05)
[2024-10-18 08:20] LABS: Hematocrit 23.0 % (37.0-47.0); Hemoglobin 7.5 g/dL (12.0-16.0); Mean Corp Hgb Conc. 32.6 g/dL (33.0-37.0); Mean Corpuscular Volume 89.5 fL (81.0-99.0); Nucleated Red Blood Cells % 0 %; Platelet Count 188 10^3/uL (130-400); Red Cell Dist. Width 18.7 % (11.5-14.5)
[2024-10-18 09:45] LABS: ALT (SGPT) 14 U/L (0-35); AST (SGOT) 22 U/L (14-36); Albumin 3.1 g/dl (3.5-5.0); Alkaline Phosphatase 81 U/L (38-126); Blood Urea Nitrogen 30 mg/dl (7-17); Calcium 7.4 mg/dl (8.4-10.2); Carbon Dioxide 29 mmol/L (22-30); Chloride 96 mmol/L (98-107); Estimated Creatinine Clearance 32 ml/min; Glucose 88 mg/dl (70-99); Magnesium 2.0 mg/dl (1.6-2.3); Potassium 3.7 mmol/L (3.5-5.1); Sodium 132 mmol/L (135-145); Total Protein 5.6 g/dl (6.3-8.2); eGFR 35.23
--- NOTE | 2024-10-18 12:07 | W.PN.HOSP.TC ---
Today's Communication/Plan
-
Monitor vital signs see plan
Monitor hemoglobin
cw prednisone
monitor hgb
hopeful dc tomorrow if hgb stable and feeling better
Assessment / Plan
Assessment / Plan
General: No distress
HEENT: Moist mucous membranes, PERRLA and Other (Fullness over L mandibular head. Tenderness better)
Respiratory: Clear; No Wheezes, Rales or Rhonchi
Cardiac: S1/S2 and Regular Rhythm; No Murmur
GI: Other (Abdomen is distended and firm. No focal tenderness.)
Genito-urinary: Other (L PCN in place draining yellow urine.)
Musculoskeletal: Other (b/l LE edema)
Neuro: AO x 3
Left Mandible Subluxation
- Evident prominence and tenderness over the L TMJ area. Now improving
- CT scan done in the ED shows subluxation of the L mandibular head with adjacent high attenuation - ? crystal or inflammatory arthropathy.
rest,ice application. pain control. started prednisone, will do short course
- Pain control / supportive care.
- Consult placed for OMFS for further recommendations however no reply. Seen by ENT, follow-up outpatient
Leukocytosis likely secondary to steroid
Hypocalcemia
Continue with calcium repletion
Hypomagnesemia, replete
Hypokalemia, replete
- Patient was treated for HYPERcalcemia in August with IVFs and Pamidronate.
- Since has had HYPOcalcemia requiring supplementation.
- Follow lytes and adjust treatment as needed.
Left Ureteral Obstruction
- s/p prior ureteral stent. Now with L PCN in place. appears to be bleeding. asked IR to evaluate. Requested CT abdomen/pelvis without acute abnormality regarding nephrostomy. Status post nephrostomy study by IR, drain looks okay. Dressing
changed by IR. Appears some ascites and the paracolic gutter around the drain and the tract is likely friable so possible draining blood-tinged ascites.
- Maintain urostomy.
Acute on chronic anemia likely multifactorial from acute blood loss, anemia of Chronic Disease / Chronic Iron Deficiency
Appears to have some bleeding from left PCN, IR requested CT abdomen/pelvis which is ordered
s/p 1 unit PRBC. Antibody positive on type and screen.
Monitor hemoglobin; 7.5 today
ferritin high
Spindle Cell Cancer
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
Ascites
- Continue letrozole.
- Ascites presumed malignant though pathology negative on recent paracentesis.
- May benefit from repeat paracentesis.
- Follow-up with Oncology after discharge. Patient to follow-up with Dr. Teixeira at [facility]
Hyponatremia
Monitor
ASCVD / CVA
- Stable. No new neurologic deficits.
- Continue ASA, statin, etc.
CKD III
- Stable. Renal function is at / near known baseline. Follow for changes.
GERD / History of GI Bleeding
- Patient intolerant of NSAIDs / oral steroids given history of GI bleeding.
- Continue PPI.
- Follow for any new symptoms.
History of hypothyroidism
Continue Synthroid, recently changed per patient. TSH high here, advised patient to follow-up with primary care provider soon outpatient for possible repeat test
DVT Prophylaxis: Subcut Heparin, hold given bleeding
Code Status: Full
I spent a total of 52 minutes with the patient or on the floor. More than 50% of this time involved counseling and coordination of care.
Anticipated Discharge: Within 24 hours
Subjective/Interval History
-
Date of Service: October 18, 2024
Denies pain
Objective Data
-
Labs:
Laboratory Results
10/18/24
07:17
WBC 12.5 H
Hgb 7.5 L
Hct 23.0 L
Plt Count 188
Sodium 132 L
Potassium 3.7
Chloride 96 L
Carbon Dioxide 29
BUN 30 H
Creatinine 1.5 H
Glucose 88
Calcium 7.4 L
Total Bilirubin 0.6
AST 22
ALT 14
Alkaline Phosphatase 81
Vital Signs:
Vital Signs
Temp Pulse Resp BP Pulse Ox
97.9 F 73 16 102/59 97
10/18/24 07:10 10/18/24 08:05 10/18/24 07:10 10/18/24 08:05 10/18/24 09:04
I&O
10/17/24 10/18/24 10/19/24
06:59 06:59 06:59
Intake Total 1620 / 1620 1160 / 1160
Output Total 55 / 55 60 / 60
Balance 1565 / 1565 1100 / 1100
[2024-10-18 15:05] VITALS: BP 117/65
--- NOTE | 2024-10-18 15:23 | CM ---
M following re: discharge planning.
Reviewed pt's chart, met with pt.
Pt lives with 2SH, 1 step to enter, has 2 supportive children. pt reports she ambulates with a walker, current with [facility], was at [facility] and [place] [facility] in the past. Pt made it very clear she 'went to [place] [facility]
and [facility], they beautiful places but I am requesting to return back home with [facility].
[facility] has accepted the pt for services.
D/C plan: per pt's request, home with Beverly RIDLEY and family support.
CM will follow with discharge plan updates as hospitalization progresses
[2024-10-18] MEDS: LEXAPRO 20 MG PO (17:03)
[2024-10-18] MEDS: SINGULAIR 10 MG PO (17:03)
[2024-10-18] MEDS: LIPITOR 40 MG PO (17:03)
[2024-10-18 21:56] LABS: Hematocrit 21.3 % (37.0-47.0); Hemoglobin 7.1 g/dL (12.0-16.0)
[2024-10-18 23:00] VITALS: BP 105/67
[2024-10-19] VITALS (7 sets, daily range): BP systolic 87–126; BP diastolic 59–80
[2024-10-19] MEDS: ULTRAM 50 MG PO (02:20)
[2024-10-19] MEDS: MORPHINE SULFATE 4 MG IV ×2 (03:54→16:50)
--- NOTE | 2024-10-19 04:11 | W.PN.UPDATE ---
Update Note
Progress Note Update
~ 4 am Asked to see patient for new onset chest pain. Patient states that pain started around 2 am, pain described by patient as finger pressure on the upper left side of chest near her clavicle, rates pain at 8 out of 10, does not radiate. Patient
is not diaphoretic. Pt denies dizziness, lightheadedness and nausea. Patient states pain is worse with inspiration/expiration. RN gave patient Ultram for pain. Re-evaluated by RN at 3:20, patient stated pain was the same if not worse. RN gave
Morphine 4 mg.
EKG preliminary read showed SINUS RHYTHM WITH PREMATURE ATRIAL COMPLEXES, RIGHT BUNDLE BRANCH BLOCK, similar to previous EKG.
Vital signs are stable: Afebrile 97.8, BP 120/74, HR 83, Respiration 18, pulsox 97%. Obtaining AM labs: CBC, CMP, Magnesium, Troponin.
Patient stated discomfort is subsiding, RN to update if pain returns.
[2024-10-19 04:50] LABS: Hematocrit 25.4 % (37.0-47.0); Hemoglobin 8.2 g/dL (12.0-16.0); Mean Corp Hgb Conc. 32.3 g/dL (33.0-37.0); Mean Corpuscular Volume 90.4 fL (81.0-99.0); Nucleated Red Blood Cells % 0.1 %; Platelet Count 205 10^3/uL (130-400); Red Cell Dist. Width 19.1 % (11.5-14.5)
[2024-10-19 05:17] LABS: ALT (SGPT) 15 U/L (0-35); AST (SGOT) 22 U/L (14-36); Albumin 3.1 g/dl (3.5-5.0); Alkaline Phosphatase 90 U/L (38-126); Blood Urea Nitrogen 30 mg/dl (7-17); Calcium 7.6 mg/dl (8.4-10.2); Carbon Dioxide 31 mmol/L (22-30); Chloride 97 mmol/L (98-107); Estimated Creatinine Clearance 34 ml/min; Glucose 86 mg/dl (70-99); Magnesium 2.0 mg/dl (1.6-2.3); Potassium 3.5 mmol/L (3.5-5.1); Sodium 134 mmol/L (135-145); Total Protein 5.7 g/dl (6.3-8.2); eGFR 38.27
[2024-10-19 05:23] LABS: Troponin I < 0.012 ng/ml
[2024-10-19] MEDS: SYNTHROID 200 MCG PO (05:28)
[2024-10-19] MEDS: MORPHINE SULFATE 2 MG IV ×2 (07:28→08:56)
--- NOTE | 2024-10-19 07:39 | PTCARENOTE ---
Around 0140, pt complained to this RN about chest pain, predominantly on the left side with some radiation to the left shoulder. Pt previously ambulated from chair to the bed, Pt stated pain was 'around 6 or 7'-See APR. On reassessment, pt stated
pain increased in intensity- pain was then rated a '8/9 out of 10'. Due to hx of afib, irregular apical change during nursing shift assessment and increasing pain, ECG done per protocol for chest pain. Initial ECG- SR w/ PACs & RBBB; following
ECG-SR w. blocked PACs,PSVCs, Fusion Complexes & Ventricular Escape Complexes. DATABASE TESTER notified & examined pt at bedside. Pt medicated for pain-See APR. VSS-See VS intervention. Follow up ECG ordered, troponin added to AM labwork & labs obtained. Labs
consistent with prior results. Pt began to report pain subsiding around 0500-pain then rated pain a '4 out of 10'. Around 0700, pt called this RN again and reported pain returned to '8 out of 10'-unable to immediately medicate due to analgesia being
outside of admin parameters. Dayshift RN notified & provider made aware.
[2024-10-19] MEDS: LASIX 20 MG IV (08:38)
[2024-10-19] MEDS: PROTONIX 40 MG PO ×2 (08:39→19:54)
[2024-10-19] MEDS: ASPIR LOW (ENTERIC COATED) 81 MG PO (08:39)
[2024-10-19] MEDS: FEMARA 2.5 MG PO (08:39)
[2024-10-19] MEDS: LOPRESSOR 25 MG PO ×2 (08:39→19:53)
[2024-10-19] MEDS: OSCAL 500 + D 500 MG PO ×2 (08:39→19:53)
[2024-10-19] MEDS: DELTASONE 40 MG PO (08:39)
[2024-10-19] MEDS: COLACE 100 MG PO ×2 (08:39→19:53)
[2024-10-19] MEDS: MIRALAX PO (08:39)
[2024-10-19] MEDS: TYLENOL 1000 MG PO ×3 (08:39→22:16)
--- NOTE | 2024-10-19 09:06 | PTCARENOTE ---
pt with L sided chest pain overnight. portable chest Xray and stat dose of morphine ordered after discussion with MD this morning. pt verbalizing 08/17 L sided chest pain post 2mg stat dose this AM. another dose ordered as well as Lasix IV.
[2024-10-19 10:11] LABS: LDH 514 U/L (120-246)
[2024-10-19 10:44] LABS: APTT 32.7 Sec (23.4-35.0); INR 1.15; PT 15.2 Sec (11.4-14.6)
--- NOTE | 2024-10-19 11:49 | W.PN.HOSP.TC ---
Today's Communication/Plan
-
Monitor vital signs see plan
IR consulted for Thora and para
Lasix
Pulmonary evaluation
Wean oxygen as tolerated
Pain control
Assessment / Plan
Assessment / Plan
General: No distress
HEENT: Moist mucous membranes, PERRLA and Other (Fullness over L mandibular head. Tenderness better)
Respiratory: Clear; No Wheezes, dull on left
Cardiac: S1/S2 and Regular Rhythm; No Murmur
GI: Other (Abdomen is distended and firm. No focal tenderness.)
Genito-urinary: Other (L PCN in place draining yellow urine.)
Musculoskeletal: Other (b/l LE edema)
Neuro: AO x 3
Left Mandible Subluxation
- Evident prominence and tenderness over the L TMJ area. Now improving
- CT scan done in the ED shows subluxation of the L mandibular head with adjacent high attenuation - ? crystal or inflammatory arthropathy.
rest,ice application. pain control. started prednisone, will do short course
- Pain control / supportive care.
- Consult placed for OMFS for further recommendations however no reply. Seen by ENT, follow-up outpatient
Leukocytosis likely secondary to steroid
Acute hypoxic respiratory insufficiency likely secondary to atelectasis and left-sided pleural effusion
Recent thoracentesis and paracentesis on last admission. Appears recurrent
Chest x-ray with large pleural effusion with associated compressive atelectasis/airspace consolidation
IR consulted for Thora and para; follow labs
Pulmonary evaluation
Wean oxygen as tolerated
Low-dose one-time lasix
Hypocalcemia
Continue with calcium repletion
Hypomagnesemia, resolved
Hypokalemia, replete
- Patient was treated for HYPERcalcemia in August with IVFs and Pamidronate.
- Since has had HYPOcalcemia requiring supplementation.
- Follow lytes and adjust treatment as needed.
Left Ureteral Obstruction
- s/p prior ureteral stent. Now with L PCN in place. appears to be bleeding. asked IR to evaluate. Requested CT abdomen/pelvis without acute abnormality regarding nephrostomy. Status post nephrostomy study by IR, drain looks okay. Dressing
changed by IR. Appears some ascites and the paracolic gutter around the drain and the tract is likely friable so possible draining blood-tinged ascites.
- Maintain urostomy.
Acute on chronic anemia likely multifactorial from acute blood loss, anemia of Chronic Disease / Chronic Iron Deficiency
Appears to have some bleeding from left PCN, IR requested CT abdomen/pelvis which is ordered
s/p 1 unit PRBC. Antibody positive on type and screen.
Monitor hemoglobin; 8.2 today
ferritin high
Spindle Cell Cancer
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
Ascites
- Continue letrozole.
- Ascites presumed malignant though pathology negative on recent paracentesis.
- Follow-up with Oncology after discharge. Patient to follow-up with Dr. Teixeira at [facility]
Hyponatremia
Monitor
ASCVD / CVA
- Stable. No new neurologic deficits.
- Continue ASA, statin, etc.
CKD III
- Stable. Renal function is at / near known baseline. Follow for changes.
GERD / History of GI Bleeding
- Patient intolerant of NSAIDs / oral steroids given history of GI bleeding.
- Continue PPI.
- Follow for any new symptoms.
History of hypothyroidism
Continue Synthroid, recently changed per patient. TSH high here, advised patient to follow-up with primary care provider soon outpatient for possible repeat test
DVT Prophylaxis: Subcut Heparin, hold given bleeding
Code Status: Full
I spent a total of 53 minutes with the patient or on the floor. More than 50% of this time involved counseling and coordination of care.
Anticipated Discharge: 24 - 48 hours
Subjective/Interval History
-
Date of Service: October 19, 2024
has sob
Objective Data
-
Labs:
Laboratory Results
10/19/24 10/19/24
04:41 10:07
WBC 14.0 H
Hgb 8.2 L
Hct 25.4 L
Plt Count 205
PT 15.2 H
INR 1.15
APTT 32.7
Sodium 134 L
Potassium 3.5
Chloride 97 L
Carbon Dioxide 31 H
BUN 30 H
Creatinine 1.4 H
Glucose 86
Calcium 7.6 L
Total Bilirubin 0.8
AST 22
ALT 15
Alkaline Phosphatase 90
Vital Signs:
Vital Signs
Temp Pulse Resp BP Pulse Ox
97.9 F 89 20 106/68 94
10/19/24 11:00 10/19/24 11:00 10/19/24 11:00 10/19/24 11:00 10/19/24 11:39
I&O
10/18/24 10/19/24 10/20/24
06:59 06:59 06:59
Intake Total 1160 / 1160 960 / 960
Output Total 60 / 60 200 / 200
Balance 1100 / 1100 760 / 760
--- NOTE | 2024-10-19 12:33 | CON.PUL ---
Consultation
Consultation Request
Date/Time Consultation Requested: 10/19/2024
Date/Time Consultation Performed: 10/19/2024
Medical History
-
Chief Complaint: Shortness of breath
History of Present Illness:
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
pain. 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 Patient has been on prednisone since.
Patient also has been reporting gradually worsening shortness of breath over the last few weeks without any cough or wheezing. Patient required supplemental oxygen and additional workup included chest x-ray which was suggestive of large pleural
effusion. Of note patient had a similar presentation in 09/2024 with large left-sided pleural effusion and had IR guided thoracentesis performed and fluid was noted to be exudative. Culture stayed negative and cytology was also negative for any
malignancy. She also had paracentesis performed and cytology was negative for malignant cells. For her abdominal spindle cell carcinoma, patient has a complicating left hydronephrosis for which nephrostomy tube was placed in 08/2024. She follows
at [facility] and also locally with [facility]. Patient reports that she was scheduled for debulking surgery but then later the plan was changed to chemotherapy instead. Patient reports having been started on letrozole recently.
In view of recurrent enlarging pleural effusion on the left side, pulmonary consultation was requested for further input. Patient has history of mild intermittent asthma. No prior history of COPD or emphysema.
Past Medical History
Past Medical History: Reports Other
Additional Past Medical History:
Spindle Cell Cancer
Upper GI bleed
Bursitis of left hip
Anxiety
SVT
Iron deficiency anemia
Hypertension
Osteoarthritis
GERD
Leiomyoma of uterus
Thyroid cancer
Hypothyroidism
Herniated disc
Asthma
Arthritis
IBS
Past Surgical History: Reports Other
Additional Past Surgical History:
Appendectomy
Thyroidectomy
Cholecystectomy
Cataract extraction
Left knee replacement
Right knee replacement
Paraesophageal hernia repair with mesh
Left ureteral stent
Social History
Tobacco: Non-smoker
Alcohol: None
Drug: None
Living: With Family
Family History
Family History: Not pertinent
Allergies / Home Medications
Allergies / Home Medications
Allergies
Allergy/AdvReac Type Severity Reaction Status Date / Time
codeine (Codeine) Allergy vomiting Verified 10/15/24 14:31
erythromycin base Allergy vomiting Verified 10/15/24 14:31
(Erythromycin Base)
hydrocodone (Hydrocodone) Allergy swelling, Verified 10/15/24 14:31
vomiting
Iodinated Contrast Media (IV Allergy Swelling Verified 10/15/24 14:31
Dye, Iodine Containing
Contrast )
NSAIDS (Non-Steroidal Allergy INTERNAL Verified 10/15/24 14:31
Anti-Inflamma BLEEDING,
ANEMIA
oxycodone Allergy Vomiting Verified 10/15/24 14:31
Home Medications
�Medication �Instructions �Recorded �Confirmed �Last Taken �Type
montelukast 10 mg tablet 10 mg PO QPM Allergies 03/31/11 10/15/24 10/14/24 History
escitalopram oxalate 20 mg tablet 20 mg PO QPM Mental Health/Anxiety 08/07/24 10/15/24 10/14/24 History
pantoprazole 40 mg tablet,delayed 40 mg PO BID Gastrointestinal Issue 08/07/24 10/15/24 10/15/24 History
release
aspirin 81 mg tablet,delayed 81 mg PO DAILY Blood clot 08/16/24 10/15/24 10/15/24 Rx
release prevention/tx #0 tabs
dicyclomine 10 mg capsule 10 mg PO BID PRN Muscle Spasms #0 08/16/24 10/15/24 10/15/24 Rx
caps
levothyroxine 200 mcg tablet 200 mcg PO DAILY @ 0600 Thyroid 08/16/24 10/15/24 10/15/24 Rx
#30 tabs
atorvastatin 40 mg tablet 40 mg PO QPM High cholesterol 30 08/30/24 10/15/24 10/14/24 Rx
days #30 tabs
loratadine 10 mg tablet 10 mg PO DAILY Allergies 30 days 08/30/24 10/15/24 10/15/24 Rx
#30 tabs
calcium polycarbophil 625 mg 1,250 mg PO BIDPRN PRN constipation 09/12/24 10/15/24 Unknown History
tablet (FiberCon)
loperamide 2 mg capsule 2 mg PO DAILYPRN PRN loose stools 09/12/24 10/15/24 Unknown History
metoprolol tartrate 50 mg tablet 25 mg PO BID Blood Pressure 09/12/24 10/15/24 10/15/24 History
fluticasone propionate 50 1 spray intranasal DAILY #16 grams 09/15/24 10/15/24 10/15/24 Rx
mcg/actuation nasal
spray,suspension (Flonase Allergy
Relief)
alprazolam 0.25 mg tablet 0.25 mg PO Q8HPRN PRN anxiety 3 09/18/24 10/15/24 10/14/24 Rx
days #12 tabs
furosemide 20 mg tablet 20 mg PO DAILY PRN Fluid 09/18/24 10/15/24 10/15/24 Rx
Retention/Swelling #0 tabs
Lactobac no.2-Bifidobac no.1-S. 1 cap PO DAILY 10/15/24 10/15/24 10/15/24 History
thermo 112.5 billion cell capsule
(Visbiome)
acetaminophen 325 mg tablet 650 mg PO DAILYPRN PRN mild pain 10/15/24 10/15/24 Unknown History
cholestyramine (with sugar) 4 gram 1 ea PO QPM 10/15/24 10/15/24 10/14/24 History
powder for susp in a packet
letrozole 2.5 mg tablet 2.5 mg PO DAILY 10/15/24 10/15/24 10/15/24 History
therapeutic multivitamin 1 tab PO QPM 10/15/24 10/15/24 10/15/24 History
tramadol 50 mg tablet 50 mg PO DAILYPRN PRN moderate pain 10/15/24 10/15/24 Unknown History
Review of Systems
-
Hematologic/Lymphatic: Other (All 14 systems reviewed and negative except as stated above in the history of present illness.)
Vitals / Labs / Diagnostic Testing
Vital Signs
Temp Pulse Resp BP Pulse Ox
97.9 F 89 20 106/68 94
10/19/24 11:00 10/19/24 11:00 10/19/24 11:00 10/19/24 11:00 10/19/24 11:39
Lab Data
10/19/24 04:41
10/19/24 04:41
Laboratory Results
10/19/24
10:07
PT 15.2 H
INR 1.15
APTT 32.7
Diagnostic Testing:
Physical Exam
-
HEENT: Normocephalic
Cardiovascular: S1/S2 and Peripheral Edema (2+, bilaterally)
Respiratory: Other (Reduced air entry in the left hemithorax. Otherwise no wheezing)
GI: Distended
Neurology: Awake and Alert
Skin: Warm
General: Comfortable
Assessment
-
#1. Recurrent left-sided pleural effusion, suspect malignant
- S/p thoracentesis in 09/2024, exudative fluid analysis, culture stayed negative and cytology was negative for malignancy
- Recommend IR guided repeat thoracentesis and send fluid for protein, LDH, cytology and cultures etc.
- Abdominal appears to be somewhat distended, recommend IR guided paracentesis and if enough fluid on imaging
- With underlying history of spindle cell cancer, exudative recurrent effusion is presumed malignant unless proven otherwise. Pleural fluid cytology yield can be 60 to 80% hence if patient continues to have recurrence, indwelling pleural catheter
placement will be appropriate. With concomitant paracentesis, etiology of pleural fluid could be fluid migrating from intraperitoneal area. Pleural and peritoneal fluid analysis on 09/2024 was very similar.
- Lasix as needed in view of pedal edema
#2. Acute hypoxic respiratory failure.
- Suspect this is related to large left-sided pleural effusion with essentially complete atelectasis of left lung.
- Patient is otherwise afebrile and denies any cough or expectoration. Hold off antibiotics for now
#3. H/o Asthma.
- No current wheezing
- Continue Montelukast
- PRN Albuterol
#4. Ascites
- Suspected by exam, recommend IR guided paracentesis and analyzed fluid for cytology
- Of note ascitic fluid cytology in 09/2024 was negative for malignancy
#5. History of spindle cell cancer
- Patient follows up with Dr. Teixeira at [facility] and also locally with [place] [facility]
- Complicated by left hydronephrosis s/p nephrostomy tube placement in 08/2024
Other medical diagnoses:
Left TMJ pain, concern for inflammation versus dislocation. ENT service on case, currently on short course of prednisone.
Hypertension.
GI bleed.
Iron deficiency anemia.
SVT.
Anxiety.
GERD.
Leiomyoma of uterus-status post BSO 2007 2015
Thyroid cancer.
Asthma.
Arthritis.
IBS.
Recent CVA
Appendectomy. Thyroidectomy. Cholecystectomy. Cataract surgery. Bilateral knee replacement. Left ureteral stent. Hernia repair.
DVT prophylaxis with subcu heparin.
Total time spent on this consultation/encounter _65__ minutes which includes review of history, physical exam, medications, laboratory data, personal review of imaging, extensive review of outpatient records, discussion with care team and
respiratory therapy.
Data:
CT A/P 10/2024: Stable abdominal and pelvic masses consistent with known spindle cell malignancy. Stable mass effect on the aorta and left kidney.
Stable left sided percutaneous nephrostomy tube. No evidence of complication.
Moderate abdominopelvic ascites. Stable.
Moderate left pleural effusion. Mildly improved.. Moderate left lower lobe consolidation. This may be atelectasis or developing pneumonia. Stable
Moderate fecal material throughout the colon. Increased
Mild diverticulosis. Stable
CT Facial bones 10/2024: 1. Moderate anterior and lateral subluxation of the left mandibular condylar head with adjacent high attenuation along the medial side of the mandibular condylar head. Diagnostic possibilities are (1) dislocation of the
left temporomandibular joint meniscus, (2) a crystal arthropathy with adjacent soft tissue calcification, or (3) an inflammatory arthropathy with surrounding synovitis.
2. Moderate left sphenoid sinusitis.
3. Severe discogenic degenerative disease at C4/C5 and C5/C6.
4. Severe right-sided facet joint arthrosis at C3/C4.
5. Previous total thyroidectomy.
ECHO 05/2024: Mild concentric left ventricular hypertrophy. Normal left ventricular chamber
size. Normal left ventricular systolic function. Left ventricular ejection
fraction is 69% by Escalante's method. Normal diastolic function.
Mitral valve opens normally. Mild to moderate mitral regurgitation.
Trileaflet aortic valve. Thickened aortic valve with normal leaflet excursion.
Aortic sclerosis without stenosis. Trace aortic insufficiency.
Tricuspid valve opens normally. Moderate tricuspid regurgitation. Estimated
pulmonary artery pressure of 35 mmHg, assuming a right atrial pressure of 3
mmHg.
Since echo August 2017, there is no significant change.
--- NOTE | 2024-10-19 14:19 | CM ---
M following re: discharge planning.
Reviewed pt's chart, met with pt.
Pt lives with 2SH, 1 step to enter, has 2 supportive children. Pt reports she ambulates with a walker, current with [facility], was at [facility] and [place] [facility] in the past. Pt made it very clear she 'went to [place] [facility]
and [facility], they beautiful places but I am requesting to return back home with [facility] RIDLEY.
[facility] has accepted the pt for services.
[facility] discharge instructions fax: [phone]
D/C plan: per pt's request, home with [facility] and family support.
CM will follow with discharge plan updates as hospitalization progresses
[2024-10-19 17:28] LABS: Body Fluid Second Tech FB
[2024-10-19] MEDS: SINGULAIR 10 MG PO (18:18)
[2024-10-19] MEDS: LIPITOR 40 MG PO (18:18)
[2024-10-19] MEDS: LEXAPRO 20 MG PO (18:18)
[2024-10-20] VITALS (12 sets, daily range): BP systolic 82–130; BP diastolic 58–73; BMI 29.6
[2024-10-20] MEDS: SYNTHROID 200 MCG PO (05:19)
[2024-10-20 06:04] LABS: Hematocrit 25.9 % (37.0-47.0); Hemoglobin 8.5 g/dL (12.0-16.0); Mean Corp Hgb Conc. 32.8 g/dL (33.0-37.0); Mean Corpuscular Volume 89.6 fL (81.0-99.0); Nucleated Red Blood Cells % 0.2 %; Platelet Count 190 10^3/uL (130-400); Red Cell Dist. Width 18.9 % (11.5-14.5)
[2024-10-20 06:26] LABS: ALT (SGPT) 15 U/L (0-35); AST (SGOT) 24 U/L (14-36); Albumin 3.2 g/dl (3.5-5.0); Alkaline Phosphatase 99 U/L (38-126); Blood Urea Nitrogen 33 mg/dl (7-17); Calcium 7.6 mg/dl (8.4-10.2); Carbon Dioxide 28 mmol/L (22-30); Chloride 96 mmol/L (98-107); Estimated Creatinine Clearance 34 ml/min; Glucose 115 mg/dl (70-99); Magnesium 2.0 mg/dl (1.6-2.3); Potassium 4.2 mmol/L (3.5-5.1); Sodium 131 mmol/L (135-145); Total Protein 5.9 g/dl (6.3-8.2); eGFR 38.27
--- NOTE | 2024-10-20 08:21 | PN.CDI ---
CDI
- -
CDI:
Physician Documentation Request
Admit Date: 10/15/24 20:27
Dear Doctor Cuco,
Please review the following and provide your response in the progress notes.
Clinical Indicators:
- 10/19 Pulmonary 'Acute hypoxic respiratory failure'
- 10/19 PN 'Acute hypoxic respiratory insufficiency'
- 88-90% on room air, 2-4L O2, pulse ox >90%
Clarify which of the following accurately represents the patient's respiratory status:
Acute hypoxic respiratory failure
Acute hypoxic respiratory insufficiency
Hypoxia
Other (please specify)
Additional information for Respiratory Failure:
Recognized criteria for Respiratory Failure (Source: Faiza Gutierrez. 2018December 28.
Documentation tips: Acute Respiratory Failure, The Hospitalist.)
ABGs: (1 or more) Symptoms Please indicate type if known
1. p)2 <60 or RA SPO2 <91% on RA 1. Tachypnea, SOB, dyspnea Hypoxic
2. pCO2 >45 and pH <7.35 2. Use of accessory muscles Hypercapnic
3. pO2 decrease of pCO2 increase by 3. Pallor or cyanosis Hypoxic and Hypercapnic
10 mmHg from baseline if known 4. Anxiety or restlessness Unable to determine
4. P/F Ratio (pO2/FiO2)nless than 300 5. Unable to speak in full sentences
Use of terms such as suspected, likely, concern for, or probable (associated with a specific diagnosis that is being evaluated, monitored, or treated as if it exists) are acceptable and can be coded in the inpatient setting, when documented at the
time of discharge.
Thank you,
Fercho Beck RN
CDI Specialist
Please use your independent medical judgment in providing your response.
[2024-10-20] MEDS: PROTONIX 40 MG PO ×2 (08:53→19:54)
[2024-10-20] MEDS: LOPRESSOR 25 MG PO ×2 (08:53→19:54)
[2024-10-20] MEDS: OSCAL 500 + D 500 MG PO ×2 (08:53→19:54)
[2024-10-20] MEDS: COLACE 100 MG PO ×2 (08:54→19:55)
[2024-10-20] MEDS: MIRALAX PO (08:54)
[2024-10-20] MEDS: DELTASONE 40 MG PO (08:54)
[2024-10-20] MEDS: TYLENOL 1000 MG PO ×2 (08:54→17:14)
[2024-10-20] MEDS: FEMARA 2.5 MG PO (08:54)
[2024-10-20] MEDS: ASPIR LOW (ENTERIC COATED) 81 MG PO (08:54)
[2024-10-20] MEDS: ZOSYN 50 IV (09:45)
--- NOTE | 2024-10-20 09:53 | W.PN.PUL3 ---
Addendum entered and electronically signed by Kj Livingston MD 10/20/24 16:35:
- Chest tube placed, pleural fluid cultures positive for Staph aureus, MRSA
- Start vancomycin IV
- Discontinue IV Zosyn
- Follow-up chest x-ray in a.m. If suboptimal lung reexpansion, we will consider intrapleural tPA/DNase
Original Note:
Today's Communication / Plan
-
- Consult IR service for chest tube placement
- Initiate IV Zosyn, follow-up on pleural fluid cultures, check MRSA screen
- Follow-up chest x-ray in a.m
- Depending upon pleural space evacuation and pleural fluid cultures, might need intrapleural tPA/DNase
Assessment
-
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
pain. 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 Patient has been on prednisone since.
Patient also has been reporting gradually worsening shortness of breath over the last few weeks without any cough or wheezing. Patient required supplemental oxygen and additional workup included chest x-ray which was suggestive of large pleural
effusion. Of note patient had a similar presentation in 09/2024 with large left-sided pleural effusion and had IR guided thoracentesis performed and fluid was noted to be exudative. Culture stayed negative and cytology was also negative for any
malignancy. She also had paracentesis performed and cytology was negative for malignant cells. For her abdominal spindle cell carcinoma, patient has a complicating left hydronephrosis for which nephrostomy tube was placed in 08/2024. She follows
at [facility] and also locally with [place] [facility]. Patient reports that she was scheduled for debulking surgery but then later the plan was changed to chemotherapy instead. Patient reports having been started on letrozole recently.
In view of recurrent enlarging pleural effusion on the left side, pulmonary consultation was requested for further input. Patient has history of mild intermittent asthma. No prior history of COPD or emphysema.
#1. Recurrent left-sided pleural effusion, suspect empyema/malignancy
- s/p Thoracentesis 10/19, 900 ml of sanguinous fluid removed. Exudative with LDH 621, concerning for empyema with pH 7.1, glucose less than 30 and 29,000 WBCs with 80% polymorphonuclear cells. Incomplete lung expansion, suspected residual
loculations. Check MRSA screen, empirically start IV Zosyn considering WBC count also elevated. Reconsulted IR service for placement of chest tube and complete drainage. Follow-up on pleural fluid cultures
- S/p thoracentesis in 09/2024, exudative fluid analysis, culture stayed negative and cytology was also negative for malignancy
- With underlying history of spindle cell cancer, malignant pleural effusion also a concern. Pleural fluid cytology yield can be 60 to 80%, hence if patient continues to have recurrence, indwelling pleural catheter placement will be appropriate.
With concomitant ascites, etiology of pleural fluid could be fluid migration from intraperitoneal area. Pleural and peritoneal fluid analysis on 09/2024 was very similar.
- Lasix as needed in view of pedal edema
#2. Acute hypoxic respiratory failure.
- Suspect this is related to large left-sided pleural effusion with essentially complete atelectasis of left lung.
- Patient is otherwise afebrile and denies any cough or expectoration
- Supplemental oxygen, initiated antibiotics for suspected empyema
#3. H/o Asthma.
- No current wheezing
- Continue Montelukast
- PRN Albuterol
#4. Ascites
- Not enough fluid noted for paracentesis on 10/19
- Of note ascitic fluid cytology in 09/2024 was negative for malignancy
#5. History of spindle cell cancer
- Patient follows up with Dr. Teixeira at [facility] and also locally with [place] [facility]
- Complicated by left hydronephrosis s/p nephrostomy tube placement in 08/2024
Other medical diagnoses:
Left TMJ pain, concern for inflammation versus dislocation. ENT service on case, currently on short course of prednisone.
Hypertension.
GI bleed.
Iron deficiency anemia.
SVT.
Anxiety.
GERD.
Leiomyoma of uterus-status post BSO 2007 2015
Thyroid cancer.
Asthma.
Arthritis.
IBS.
Recent CVA
Appendectomy. Thyroidectomy. Cholecystectomy. Cataract surgery. Bilateral knee replacement. Left ureteral stent. Hernia repair.
DVT prophylaxis with subcu heparin.
Total time spent on this consultation/encounter _48__ minutes which includes review of history, physical exam, medications, laboratory data, personal review of imaging, extensive review of outpatient records, discussion with care team and
respiratory therapy.
Data:
CT A/P 10/2024: Stable abdominal and pelvic masses consistent with known spindle cell malignancy. Stable mass effect on the aorta and left kidney.
Stable left sided percutaneous nephrostomy tube. No evidence of complication.
Moderate abdominopelvic ascites. Stable.
Moderate left pleural effusion. Mildly improved.. Moderate left lower lobe consolidation. This may be atelectasis or developing pneumonia. Stable
Moderate fecal material throughout the colon. Increased
Mild diverticulosis. Stable
CT Facial bones 10/2024: 1. Moderate anterior and lateral subluxation of the left mandibular condylar head with adjacent high attenuation along the medial side of the mandibular condylar head. Diagnostic possibilities are (1) dislocation of the
left temporomandibular joint meniscus, (2) a crystal arthropathy with adjacent soft tissue calcification, or (3) an inflammatory arthropathy with surrounding synovitis.
2. Moderate left sphenoid sinusitis.
3. Severe discogenic degenerative disease at C4/C5 and C5/C6.
4. Severe right-sided facet joint arthrosis at C3/C4.
5. Previous total thyroidectomy.
ECHO 05/2024: Mild concentric left ventricular hypertrophy. Normal left ventricular chamber
size. Normal left ventricular systolic function. Left ventricular ejection
fraction is 69% by Escalante's method. Normal diastolic function.
Mitral valve opens normally. Mild to moderate mitral regurgitation.
Trileaflet aortic valve. Thickened aortic valve with normal leaflet excursion.
Aortic sclerosis without stenosis. Trace aortic insufficiency.
Tricuspid valve opens normally. Moderate tricuspid regurgitation. Estimated
pulmonary artery pressure of 35 mmHg, assuming a right atrial pressure of 3
mmHg.
Since echo August 2017, there is no significant change.
Subjective Data
-
Date of Service:
Date of Service: October 20, 2024
Subjective:
Patient comfortably lying in bed no acute distress. Reports feeling marginally better after thoracentesis but not at baseline in terms of dyspnea.
Review of Systems
Genitourinary: Other (No new pulmonary symptoms reported.)
Objective Data
Data Reviewed
Vital Signs / I&O / Oxygen:
Vital Signs
Temp Pulse Resp BP Pulse Ox
98.1 F 86 16 130/73 94
10/20/24 07:00 10/20/24 08:53 10/20/24 07:00 10/20/24 08:53 10/20/24 07:00
Intake and Output
10/19/24 10/20/24 10/21/24
06:59 06:59 06:59
Intake Total 960 / 960 840 / 840
Output Total 200 / 200 400 / 400
Balance 760 / 760 440 / 440
SaO2 94
Nasal Cannula flow liters per 2
minute
Physical Exam
General: Comfortable
HEENT: Normocephalic
Cardiovascular: S1-S2 and Peripheral Edema
Respiratory: Other (Decreased air entry in the left posterior hemithorax)
GI: Soft and Non Distended
Neurology: Awake and Alert
Skin: Warm
Labs/Micro/Reports
Lab Data
10/20/24 05:44
10/20/24 05:44
Laboratory Results
10/19/24
10:07
PT 15.2 H
INR 1.15
APTT 32.7
Microbiology
10/19/24 14:48 Pleural Fluid Gram Stain - Preliminary
--- NOTE | 2024-10-20 11:56 | W.PN.HOSP.TC ---
Addendum entered and electronically signed by Jos Norwood MD 10/20/24 12:46:
Prolonged QTc
Hold Lexapro
Check EKG
Original Note:
Today's Communication/Plan
-
Monitor vital signs see plan
For concerning for empyema
IR consult for chest tube
Start Zosyn, check MRSA screen
Assessment / Plan
Assessment / Plan
General: No distress
HEENT: Moist mucous membranes, PERRLA and Other (Fullness over L mandibular head. non Tender)
Respiratory: Clear; No Wheezes, dull on left
Cardiac: S1/S2 and Regular Rhythm; No Murmur
GI: Other (Abdomen is distended and firm. No focal tenderness.)
Genito-urinary: Other (L PCN in place draining yellow urine.)
Musculoskeletal: Other (b/l LE edema)
Neuro: AO x 3
Left Mandible Subluxation
- Evident prominence and tenderness over the L TMJ area. Now improving
- CT scan done in the ED shows subluxation of the L mandibular head with adjacent high attenuation - ? crystal or inflammatory arthropathy.
rest,ice application. pain control. started prednisone, will do short course. Finished prednisone
- Pain control / supportive care.
- Consult placed for OMFS for further recommendations however no reply. Seen by ENT, follow-up outpatient
Leukocytosis likely secondary to steroid and possible empyema
Acute hypoxic respiratory insufficiency likely secondary to atelectasis and left-sided pleural effusion with empyema
on 2L
Recent thoracentesis and paracentesis on last admission. Appears recurrent
Chest x-ray with large pleural effusion with associated compressive atelectasis/airspace consolidation
IR consulted for Thora and para; run 900 cc bloody pleural fluid on Thora, not much on para so was on not performed, labs consistent with possible empyema. Follow cultures and cytology. Started Zosyn. MRSA screen. Discussed with pulmonary,
likely will need chest tube. IR consult
Pulmonary following
Wean oxygen as tolerated
Low-dose one-time lasix
Hypocalcemia
Continue with calcium repletion
Hypomagnesemia, resolved
Hypokalemia, replete
- Patient was treated for HYPERcalcemia in August with IVFs and Pamidronate.
- Since has had HYPOcalcemia requiring supplementation.
- Follow lytes and adjust treatment as needed.
Left Ureteral Obstruction
- s/p prior ureteral stent. Now with L PCN in place. appears to be bleeding. asked IR to evaluate. Requested CT abdomen/pelvis without acute abnormality regarding nephrostomy. Status post nephrostomy study by IR, drain looks okay. Dressing
changed by IR. Appears some ascites and the paracolic gutter around the drain and the tract is likely friable so possible draining blood-tinged ascites.
- Maintain urostomy.
Acute on chronic anemia likely multifactorial from acute blood loss, anemia of Chronic Disease / Chronic Iron Deficiency
Appears to have some bleeding from left PCN, IR requested CT abdomen/pelvis which is ordered
s/p 1 unit PRBC. Antibody positive on type and screen.
Monitor hemoglobin; 8.5 today
ferritin high
Spindle Cell Cancer
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
Ascites
- Continue letrozole.
- Ascites presumed malignant though pathology negative on last admission paracentesis. Not much fluid this time for paracentesis
- Follow-up with Oncology after discharge. Patient to follow-up with Dr. Teixeira at [facility] [place]
Hyponatremia
Monitor
ASCVD / CVA
- Stable. No new neurologic deficits.
- Continue ASA, statin, etc.
CKD III
- Stable. Renal function is at / near known baseline. Follow for changes.
GERD / History of GI Bleeding
- Patient intolerant of NSAIDs / oral steroids given history of GI bleeding.
- Continue PPI.
- Follow for any new symptoms.
History of hypothyroidism
Continue Synthroid, recently changed per patient. TSH high here, advised patient to follow-up with primary care provider soon outpatient for possible repeat test
DVT Prophylaxis: Subcut Heparin, hold given bleeding
Code Status: Full
I spent a total of 52 minutes with the patient or on the floor. More than 50% of this time involved counseling and coordination of care.
Anticipated Discharge: > 48 hours
Subjective/Interval History
-
Date of Service: October 20, 2024
denies pain
Objective Data
-
Labs:
Laboratory Results
10/20/24
05:44
WBC 22.3 H
Hgb 8.5 L
Hct 25.9 L
Plt Count 190
Sodium 131 L
Potassium 4.2
Chloride 96 L
Carbon Dioxide 28
BUN 33 H
Creatinine 1.4 H
Glucose 115 H
Calcium 7.6 L
Total Bilirubin 0.9
AST 24
ALT 15
Alkaline Phosphatase 99
Vital Signs:
Vital Signs
Temp Pulse Resp BP Pulse Ox
98.2 F 79 16 105/65 96
10/20/24 11:00 10/20/24 11:00 10/20/24 11:00 10/20/24 11:00 10/20/24 11:00
I&O
10/19/24 10/20/24 10/21/24
06:59 06:59 06:59
Intake Total 960 / 960 840 / 840
Output Total 200 / 200 400 / 400
Balance 760 / 760 440 / 440
--- NOTE | 2024-10-20 15:46 | PTCARENOTE ---
Patient returned from IR with new left sided chest tube in place. Dressing C/D/I at this time. No s/s of distress noted at this time. chest tube currently draining bloody output. new orders in place. VS documented and stable at this time. call martinez
within reach. Plan of care ongoing.
[2024-10-20] MEDS: VANCOCIN 530 MG IV (16:01)
--- NOTE | 2024-10-20 16:15 | PHA.VAN.IN ---
Addendum entered and electronically signed by Jerri Johnson 10/20/24 17:33:
EDIT:
Dosing CrCl (ml/min): 34
Estimated AUC (mcg*h/mL): 552
Estimated Peak (mcg*h/mL): 32.6
Estimated Trough (mcg/ml): 15.4
Estimated Half Life (H): 21.2
Original Note:
Assessment
- Assessment
Renal Function: Appears similar to baseline
AUC Dosing Plan
- Dosing Variables
Dosing Weight (kg): 80.694
Dosing CrCl (ml/min): 43
Vd coefficient (L/kg): 0.7
- Empiric Dosing
Initial / Loading Dose: received 1500mg load at 1526
Maintenance Regimen: 1000mg q24h
Estimated AUC (mcg*h/mL): 450
Estimated Peak (mcg*h/mL): 28.6
Estimated Trough (mcg/ml): 11.4
Estimated Half Life (H): 17.3
- Monitoring
No levels ordered at this time: consider within next few days as pt approaches steady state
Pharmacokinetics Vancomycin I
- -
Patient Age: 78
Patient Sex: Female
Vancomycin Day #: 1
Indication: Pulmonary/Respiratory
Requesting Provider: Dr. Norwood
Pertinent Antimicrobial Allergies:
erythromycin base - vomiting
Height / Weight:
Height 5 ft 5 in
Actual Weight 80.694 kg
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
- Vital Signs / Lab Results
Temp Pulse Resp BP Pulse Ox
97 F 87 20 116/66 95
10/20/24 15:40 10/20/24 15:40 10/20/24 15:40 10/20/24 15:40 10/20/24 15:40
Lab Results - Hematology
09/10/25 09/11/25 09/12/25
07:17 04:41 05:44
WBC 12.5 H 14.0 H 22.3 H
Lab Results - Chemistry
10/18/24 10/19/24 10/20/24
07:17 04:41 05:44
BUN 30 H 30 H 33 H
Creatinine 1.5 H 1.4 H 1.4 H
Estimated Creat Clear 32 34 34
Albumin 3.1 L 3.1 L 3.2 L
Microbiology Results
10/20/24 14:25 Fungal Culture - Preliminary
Pleural Fluid Culture in progress.
Positive cultures are reported as soon as detected.
Final report to follow in four to five weeks.
10/19/24 14:48 Body Fluid Culture - Preliminary
Pleural Fluid Staph aureus MRSA
Gram Stain - Preliminary
[2024-10-20] MEDS: SINGULAIR 10 MG PO (17:14)
[2024-10-20] MEDS: LIPITOR 40 MG PO (17:14)
[2024-10-21] VITALS (7 sets, daily range): BP systolic 107–115; BP diastolic 56–72
[2024-10-21] MEDS: TYLENOL 1000 MG PO ×2 (00:07→10:27)
[2024-10-21] MEDS: SYNTHROID 200 MCG PO (05:16)
--- NOTE | 2024-10-21 08:04 | PTCARENOTE ---
Chest tube output 150 overnight. 1300 in total since insertion 10/20. Pt slept well last night, pt reports this has been most rest she's gotten in past 3 days. L lung mckeon much clearer on auscultation-See nursing shift assessment. Pt reports
reduced SOB, satting well on RA, slight tachypnea noted on assx-resolved at this time. Call martinez within reach, bed in lowest position and locked-Pt reports no further needs at this time.
[2024-10-21 08:24] LABS: Hematocrit 25.2 % (37.0-47.0); Hemoglobin 8.1 g/dL (12.0-16.0); Mean Corp Hgb Conc. 32.1 g/dL (33.0-37.0); Mean Corpuscular Volume 91.0 fL (81.0-99.0); Nucleated Red Blood Cells % 0.2 %; Platelet Count 206 10^3/uL (130-400); Red Cell Dist. Width 18.7 % (11.5-14.5)
[2024-10-21 08:49] LABS: ALT (SGPT) 13 U/L (0-35); AST (SGOT) 18 U/L (14-36); Albumin 2.7 g/dl (3.5-5.0); Alkaline Phosphatase 91 U/L (38-126); Blood Urea Nitrogen 34 mg/dl (7-17); Calcium 7.3 mg/dl (8.4-10.2); Carbon Dioxide 32 mmol/L (22-30); Chloride 94 mmol/L (98-107); Estimated Creatinine Clearance 32 ml/min; Glucose 99 mg/dl (70-99); Magnesium 1.9 mg/dl (1.6-2.3); Potassium 3.5 mmol/L (3.5-5.1); Sodium 131 mmol/L (135-145); Total Protein 5.1 g/dl (6.3-8.2); eGFR 35.23
--- NOTE | 2024-10-21 09:04 | PHA.VAN.FU ---
Vancomycin Assessment / Plan
- Assessment
Renal Function: Stable
WBC's are: Trending Down
In the past 24 hrs, patient has been: Afebrile
- Dosing Plan
Adjust Regimen to: dosing by level - tierney give one-time dose today as planned
- Monitoring Plan
Random Level: 10/22 0600
- Follow Up
Pharmacy will continue to follow.
Vancomycin Follow UP
- -
Patient Age: 78
Patient Sex: Female
Vancomycin Day #: 2
Indication: Pulmonary/Respiratory
Requesting Provider: Dr. Norwood
Pertinent Antimicrobial Allergies:
erythromycin base - vomiting
Height / Weight:
Height 5 ft 5 in
Actual Weight 80.694 kg
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
- Vital Signs / Lab Results
Temp Pulse Resp BP Pulse Ox
97.4 F 80 17 113/72 93
10/21/24 07:24 10/21/24 07:24 10/21/24 07:24 10/21/24 07:24 10/21/24 07:24
Lab Results - Hematology
10/19/24 10/20/24 10/21/24
04:41 05:44 07:55
WBC 14.0 H 22.3 H 18.8 H
Lab Results - Chemistry
10/18/24 10/19/24 10/20/24
07:17 04:41 05:44
BUN 30 H 30 H 33 H
Creatinine 1.5 H 1.4 H 1.4 H
Estimated Creat Clear 32 34 34
Albumin 3.1 L 3.1 L 3.2 L
10/21/24
07:55
BUN 34 H
Creatinine 1.5 H
Estimated Creat Clear 32
Albumin 2.7 L
Microbiology Results
10/19/24 14:48 Body Fluid Culture - Final
Pleural Fluid Staph aureus MRSA
Gram Stain - Final
10/20/24 14:25 Gram Stain - Preliminary
Pleural Fluid
10/20/24 14:25 Fungal Culture - Preliminary
Pleural Fluid Culture in progress.
Positive cultures are reported as soon as detected.
Final report to follow in four to five weeks.
[2024-10-21] MEDS: FEMARA 2.5 MG PO (10:14)
[2024-10-21] MEDS: COLACE 100 MG PO ×2 (10:14→19:57)
[2024-10-21] MEDS: OSCAL 500 + D 500 MG PO (10:14)
[2024-10-21] MEDS: ASPIR LOW (ENTERIC COATED) 81 MG PO (10:15)
[2024-10-21] MEDS: LOPRESSOR PO (10:25)
[2024-10-21] MEDS: MIRALAX PO (10:27)
[2024-10-21] MEDS: PROTONIX 40 MG PO ×2 (10:27→19:57)
[2024-10-21] MEDS: LASIX 20 MG IV (10:51)
--- NOTE | 2024-10-21 11:14 | CON.ID ---
Consultation
-
Date/Time Consultation Requested: 10/21/24 8:38
Date/Time Consultation Performed: 10/21/24 11:14
Requesting Provider: Dr Norwood
Performing Provider: Dr Nuñez
Reason for Consultation: MRSA empyema
Chief Complaint / Past History
Chief Complaint
left jaw pain
History of Present Illness
Ms Ann is a 78 year old female with PMH significant for spindle cell cancer (on anti-estrogen medication, scheduled for surgery which has been delayed) who presents to ED complaining of L jaw pain since the day before yesterday. The pain
started anterior to the L ear yesterday. No noted injury or trauma. She reports fullness / tenderness anterior to the ear and pain that is worse with eating, talking, etc. Pain has persisted for the past 24 hours. No fevers, chills or similar
symptoms.
Also note she was admitted in September for pneumonia, effusion and ascites. She was treated with abx, paracentesis and thoracentesis.
Since arrival here she has been afebrile, BP stable wbc initially 12.5 now 18.8, hgb 8.1, plt 206, Na running low 130s, cr at baseline of 1.4, lfts wnl, thoracentesis pH 7.14, wbc 30K, 80% neutrophils, glucose <30, LDH 620, peripheral LDH 514.
Initially CXR showed 'Large pleural effusion with associated compressive atelectasis/airspace consolidation within the left hemithorax' with 900 ccs of bloody fluid subsequently removed. She is s/p chest tube placement 10/20. ascitic fluid
cytology in 09/2024 was negative for malignancy; 10/20 pathology is pending. Body fluid grew few MRSA; ID is consulted for assistance with management.
Past History
Additional Past Medical History:
Spindle Cell Cancer
Upper GI bleed
Bursitis of left hip
Anxiety
SVT
Iron deficiency anemia
Hypertension
Osteoarthritis
GERD
Leiomyoma of uterus
Thyroid cancer
Hypothyroidism
Herniated disc
Asthma
Arthritis
IBS
Additional Past Surgical History:
Appendectomy
Thyroidectomy
Cholecystectomy
Cataract extraction
Left knee replacement
Right knee replacement
Paraesophageal hernia repair with mesh
Left ureteral stent
Allergy History:
codeine (Codeine) Allergy (Verified 10/15/24 14:31)
vomiting
erythromycin base (Erythromycin Base) Allergy (Verified 10/15/24 14:31)
vomiting
hydrocodone (Hydrocodone) Allergy (Verified 10/15/24 14:31)
swelling, vomiting
Iodinated Contrast Media (IV Dye, Iodine Containing Contrast ) Allergy (Verified 10/15/24 14:31)
Swelling
NSAIDS (Non-Steroidal Anti-Inflamma Allergy (Verified 10/15/24 14:31)
INTERNAL BLEEDING, ANEMIA
oxycodone Allergy (Verified 10/15/24 14:31)
Vomiting
Medications Reviewed: Yes
Social History
Tobacco: Non-Smoker
Alcohol: None
Drug: None
Family History
Family History: Not Pertinent
Review of Systems
Vital Signs
Temp Pulse Resp BP Pulse Ox
98.0 F 98 17 110/56 93
10/21/24 11:10 10/21/24 11:10 10/21/24 11:10 10/21/24 11:10 10/21/24 11:10
Physical Exam
Physical Exam
Constitutional: No Acute Distress
Cardiovascular: Regular Rate and S1/S2; Negative Murmur or Rub
Pulmonary: Clear and Symmetric; Negative Wheezes, Rales or Rhonchi
Gastrointestinal: Soft, Non Tender, Non Distended and Normal Bowel Sounds
Skin: Warm and Dry; Negative Rash or Jaundice
Lab / Diagnostic Study Results
10/21/24 07:55
10/21/24 07:55
Abs Immat Gran (auto) 0.2 10^3/uL (0-0.05) H 10/21/24 07:55
Absolute Neuts (auto) 17.6 10^3/uL (1.4-6.5) H 10/21/24 07:55
Absolute Lymphs (auto) 0.5 10^3/uL (1.2-3.4) L 10/21/24 07:55
Absolute Monos (auto) 0.5 10^3/uL (0.1-0.6) 10/21/24 07:55
Absolute Basos (auto) 0.1 10^3/uL (0-0.2) 10/21/24 07:55
Immature Gran % 0.8 % (0-0.5) H 10/21/24 07:55
Neutrophils % 93.6 % (42.2-75.2) H 10/21/24 07:55
Lymphocytes % 2.8 % (20.5-51.1) L 10/21/24 07:55
Monocytes % 2.4 % (1.7-9.3) 10/21/24 07:55
Eosinophils % 0.1 % (0-6) 10/21/24 07:55
Basophils % 0.3 % (0-2) 10/21/24 07:55
PT 15.2 Sec (11.4-14.6) H 10/19/24 10:07
INR 1.15 10/19/24 10:07
Microbiology Results
Micro:
10/19/24 14:48 Body Fluid Culture - Final
Pleural Fluid Staph aureus MRSA
Gram Stain - Final
10/20/24 14:25 Body Fluid Culture - Pending
Pleural Fluid Gram Stain - Preliminary
10/20/24 14:25 Fungal Culture - Preliminary
Pleural Fluid Culture in progress.
Positive cultures are reported as soon as detected.
Final report to follow in four to five weeks.
10/20/24 14:25 Acid Fast Bacilli Smear - Pending
Pleural Fluid Acid Fast Bacilli Culture - Pending
10/20/24 11:24 MRSA Screen - Pending
Nose
Procedure Result Verified
Fluid Cult/not urine Final 10/21/24-830
Few Staph aureus MRSA
Isolation Precautions Required
Called to [id number] on 10/20/24 at 1443 by [place] [id number]
Organism 1 Staph aureus MRSA
1. Staph aureus MRSA
M.I.C. RX
--------- ---
Amoxicillin/Potas. Clavulanate >4/2 R
Ampicillin >8 R
Clindamycin <=0.5 S
Gentamicin <=4 S
Erythromycin >4 R
Levofloxacin >4 R
Oxacillin >2 R
Tetracycline <=4 S
Trimethoprim/Sulfamethoxazole <=0.5/9.5 S
Vancomycin 1 S
Assessment / Plan
MRSA Empyema
H/o previous thoracentesis
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
- await pathology
- agree with vancomycin at this time, for eventual deescalation to oral antibiotics to complete a course
--- NOTE | 2024-10-21 11:40 | W.PN.HOSP.TC ---
Today's Communication/Plan
-
Monitor vital signs and see plan
Continue with vancomycin
Maintain chest tube
IV Lasix today
Monitor renal function
ID evaluation
Assessment / Plan
Assessment / Plan
General: No distress
HEENT: Moist mucous membranes, PERRLA and Other (Fullness over L mandibular head. non Tender)
Respiratory: Clear; No Wheezes, + chest tube
Cardiac: S1/S2 and Regular Rhythm; No Murmur
GI: Other (Abdomen is distended and firm. No focal tenderness.)
Genito-urinary: Other (L PCN in place draining yellow urine.)
Musculoskeletal: Other (b/l LE edema)
Neuro: AO x 3
Left Mandible Subluxation
- Evident prominence and tenderness over the L TMJ area. Now improving
- CT scan done in the ED shows subluxation of the L mandibular head with adjacent high attenuation - ? crystal or inflammatory arthropathy.
rest,ice application. pain control. started prednisone, will do short course. Finished prednisone
- Pain control / supportive care.
- Consult placed for OMFS for further recommendations however no reply. Seen by ENT, follow-up outpatient
Leukocytosis likely secondary to steroid and possible empyema
Acute hypoxic respiratory insufficiency likely secondary to atelectasis and left-sided pleural effusion with empyema
on 2L
Recent thoracentesis and paracentesis on last admission. Appears recurrent
Chest x-ray with large pleural effusion with associated compressive atelectasis/airspace consolidation
IR consulted for Thora and para; drained 900 cc bloody pleural fluid on Thora, not much on para so was on not performed, labs consistent with empyema. Follow cultures and cytology. cx with MRSA. started vancomycin. ID evaluation
Status post chest tube 10/20, monitor chest tube
Repeat chest x-ray 10/21 with improved left basilar opacity
Pulmonary following
Wean oxygen as tolerated
IV lasix 10/21
Hypocalcemia
Continue with calcium repletion
Hypomagnesemia, resolved
Hypokalemia, replete
- Patient was treated for HYPERcalcemia in August with IVFs and Pamidronate.
- Since has had HYPOcalcemia requiring supplementation.
- Follow lytes and adjust treatment as needed.
Left Ureteral Obstruction
- s/p prior ureteral stent. Now with L PCN in place. appears to be bleeding. asked IR to evaluate. Requested CT abdomen/pelvis without acute abnormality regarding nephrostomy. Status post nephrostomy study by IR, drain looks okay. Dressing
changed by IR. Appears some ascites and the paracolic gutter around the drain and the tract is likely friable so possible draining blood-tinged ascites.
- Maintain urostomy.
Acute on chronic anemia likely multifactorial from acute blood loss, anemia of Chronic Disease / Chronic Iron Deficiency
Appears to have some bleeding from left PCN, IR requested CT abdomen/pelvis which is ordered
s/p 1 unit PRBC. Antibody positive on type and screen.
Monitor hemoglobin; 8.1 today
ferritin high
Spindle Cell Cancer
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
Ascites
- Continue letrozole.
- Ascites presumed malignant though pathology negative on last admission paracentesis. Not much fluid this time for paracentesis
- Follow-up with Oncology after discharge. Patient to follow-up with Dr. Teixeira at [facility]
Hyponatremia
Monitor
ASCVD / CVA
- Stable. No new neurologic deficits.
- Continue ASA, statin, etc.
CKD III
- Stable. Renal function is at / near known baseline. Follow for changes.
GERD / History of GI Bleeding
- Patient intolerant of NSAIDs / oral steroids given history of GI bleeding.
- Continue PPI.
- Follow for any new symptoms.
History of hypothyroidism
Continue Synthroid, recently changed per patient. TSH high here, advised patient to follow-up with primary care provider soon outpatient for possible repeat test
DVT Prophylaxis: Subcut Heparin, hold given bleeding
Code Status: Full
I spent a total of 53 minutes with the patient or on the floor. More than 50% of this time involved counseling and coordination of care.
Anticipated Discharge: > 48 hours
Subjective/Interval History
-
Date of Service: October 21, 2024
Feeling little better
Objective Data
-
Labs:
Laboratory Results
10/21/24
07:55
WBC 18.8 H
Hgb 8.1 L
Hct 25.2 L
Plt Count 206
Sodium 131 L
Potassium 3.5
Chloride 94 L
Carbon Dioxide 32 H
BUN 34 H
Creatinine 1.5 H
Glucose 99
Calcium 7.3 L
Total Bilirubin 0.8
AST 18
ALT 13
Alkaline Phosphatase 91
Vital Signs:
Vital Signs
Temp Pulse Resp BP Pulse Ox
98.0 F 98 17 110/56 93
10/21/24 11:10 10/21/24 11:10 10/21/24 11:10 10/21/24 11:10 10/21/24 11:10
I&O
10/20/24 10/21/24 10/22/24
06:59 06:59 06:59
Intake Total 840 / 840 1500 / 1500
Output Total 400 / 400 1445 / 1445
Balance 440 / 440 55 / 55
[2024-10-21] MEDS: VANCOCIN 200 IV (13:26)
--- NOTE | 2024-10-21 15:19 | PN.IRAD.UPD ---
Update Note - IRAD
- -
8mg TPA, 5ML DORNASE instilled via left chest tube at bedside. Chest tube was clampped at 1430. Patient tolerated procedure well. RN notified
[2024-10-21] MEDS: MORPHINE SULFATE 4 MG IV (16:35)
--- NOTE | 2024-10-21 16:50 | W.PN.PUL3 ---
Today's Communication / Plan
-
s/p tPA/dornase today to help optimize left lung reexpansion
Will give dose of anxiolytic with Ativan as she is very anxious due to left-sided chest pain + SOB since getting lytics instilled; can given prn dilaudid vs morphine if needed; hold for sedation
Follow-up remaining pleural fluid cultures (fungus + AFB)
Continue IV vancomycin per ID
Follow-up pleural fluid cytopathology
Repeat CXR tomorrow and if needed may need additional tPA/dornase
Pulmonary service will continue to follow
Assessment
-
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
pain. 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 Patient has been on prednisone since.
Patient also has been reporting gradually worsening shortness of breath over the last few weeks without any cough or wheezing. Patient required supplemental oxygen and additional workup included chest x-ray which was suggestive of large pleural
effusion. Of note patient had a similar presentation in 09/2024 with large left-sided pleural effusion and had IR guided thoracentesis performed and fluid was noted to be exudative. Culture stayed negative and cytology was also negative for any
malignancy. She also had paracentesis performed and cytology was negative for malignant cells. For her abdominal spindle cell carcinoma, patient has a complicating left hydronephrosis for which nephrostomy tube was placed in 08/2024. She follows
at [facility] and also locally with [facility]. Patient reports that she was scheduled for debulking surgery but then later the plan was changed to chemotherapy instead. Patient reports having been started on letrozole recently.
In view of recurrent enlarging pleural effusion on the left side, pulmonary consultation was requested for further input. Patient has history of mild intermittent asthma. No prior history of COPD or emphysema.
#1. 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
- s/p Thoracentesis 10/19, 900 ml of sanguinous fluid removed. Exudative with LDH 621, concerning for empyema with pH 7.1, glucose less than 30 and 29,000 WBCs with 80% polymorphonuclear cells. Incomplete lung expansion, suspected residual
loculations. MRSA screen positive
- IR placed chest tube on 10/20/2024
- Pleural fluid Cx positive for MRSA; pleural fluid fungal + AFB cultures show NGTD thus far
- Discussed case with IR today and given suboptimal lung re-expansion on CXR this AM, believe she would benefit from tpA/dornase --> given to her today by IR
- Patient was initially started on Zosyn however now on IV vancomycin -ID consulted and defer antibiotics to them
- S/p thoracentesis in 09/2024, exudative fluid analysis, culture stayed negative and cytology was also negative for malignancy
- With underlying history of spindle cell cancer, malignant pleural effusion also a concern. Pleural fluid cytology yield can be 60 to 80%, hence if patient continues to have recurrence, indwelling pleural catheter placement will be appropriate.
With concomitant ascites, etiology of pleural fluid could be fluid migration from intraperitoneal area. Pleural and peritoneal fluid analysis on 09/2024 was very similar.
- Lasix as needed in view of pedal edema
#2. Acute hypoxic respiratory failure.
- Suspect this is related to large left-sided pleural effusion with essentially complete atelectasis of left lung.
- Patient is otherwise afebrile and denies any cough or expectoration
- Continue supplemental oxygen and keep SpO2 >90-94%
- Treat with anxiolytics as needed given she is more anxious now s/p tPA/dornse today
- Continue ABx per ID
#3. H/o Asthma.
- No current wheezing
- Continue Montelukast
- PRN Albuterol
#4. Ascites
- Not enough fluid noted for paracentesis on 10/19
- Of note ascitic fluid cytology on 09/13/2024 was negative for malignancy
#5. History of spindle cell cancer
- Patient follows up with Dr. Teixeira at [facility] and also locally with [facility]
- Complicated by left hydronephrosis s/p nephrostomy tube placement in 08/2024
Other medical diagnoses:
Left TMJ pain, concern for inflammation versus dislocation. ENT service on case; s/p course of prednisone 40mg daily (10/16 - 10/20/2024)
Hypertension.
GI bleed.
Iron deficiency anemia.
SVT.
Anxiety.
GERD.
Leiomyoma of uterus-status post BSO 2007 2015
Thyroid cancer.
Asthma.
Arthritis.
IBS.
Recent CVA
Appendectomy. Thyroidectomy. Cholecystectomy. Cataract surgery. Bilateral knee replacement. Left ureteral stent. Hernia repair.
DVT prophylaxis with subcu heparin.
Total time spent today was 39 minutes for this encounter. Time includes reviewing laboratory test/imaging results, reviewing pertinent medical records, obtaining and reviewing medical history, performing an appropriate exam, ordering medications,
tests and procedures. Time also includes documentation of this encounter, coordinating patient care and communicating with other healthcare professionals. Total time does not include separately billed tests performed on this date of service.
Data:
CT A/P 10/2024: Stable abdominal and pelvic masses consistent with known spindle cell malignancy. Stable mass effect on the aorta and left kidney.
Stable left sided percutaneous nephrostomy tube. No evidence of complication.
Moderate abdominopelvic ascites. Stable.
Moderate left pleural effusion. Mildly improved.. Moderate left lower lobe consolidation. This may be atelectasis or developing pneumonia. Stable
Moderate fecal material throughout the colon. Increased
Mild diverticulosis. Stable
CT Facial bones 10/2024: 1. Moderate anterior and lateral subluxation of the left mandibular condylar head with adjacent high attenuation along the medial side of the mandibular condylar head. Diagnostic possibilities are (1) dislocation of the
left temporomandibular joint meniscus, (2) a crystal arthropathy with adjacent soft tissue calcification, or (3) an inflammatory arthropathy with surrounding synovitis.
2. Moderate left sphenoid sinusitis.
3. Severe discogenic degenerative disease at C4/C5 and C5/C6.
4. Severe right-sided facet joint arthrosis at C3/C4.
5. Previous total thyroidectomy.
ECHO 05/2024: Mild concentric left ventricular hypertrophy. Normal left ventricular chamber
size. Normal left ventricular systolic function. Left ventricular ejection
fraction is 69% by Escalante's method. Normal diastolic function.
Mitral valve opens normally. Mild to moderate mitral regurgitation.
Trileaflet aortic valve. Thickened aortic valve with normal leaflet excursion.
Aortic sclerosis without stenosis. Trace aortic insufficiency.
Tricuspid valve opens normally. Moderate tricuspid regurgitation. Estimated
pulmonary artery pressure of 35 mmHg, assuming a right atrial pressure of 3
mmHg.
Since echo August 2017, there is no significant change.
Subjective Data
-
Date of Service:
Date of Service: October 21, 2024
Chief Complaint: Pulmonary Follow Up
Subjective:
Patient seen and evaluated today at bedside (late note entry). Left-sided chest tube has drained 1300 cc over the last 24 hours. CXR this morning shows improved left-sided basilar opacity although still with marked amount of pleural fluid in the
left hemithorax. Decision made to instill tPA/dornase (done by IR). After this instillation, she felt very short of breath and anxious. When I saw the patient there was 2100 cc in the Pleur-evac of serosanguineous/purulent fluid. She is
currently on 2 L/min nasal cannula, and says that although her vitals look stable she feels short of breath still. She is currently saturating 96%.
Review of Systems
General: Other (Negative unless mentioned above)
Objective Data
Data Reviewed
Vital Signs / I&O / Oxygen:
Vital Signs
Temp Pulse Resp BP Pulse Ox
97.4 F 80 17 113/72 93
10/21/24 07:24 10/21/24 07:24 10/21/24 07:24 10/21/24 07:24 10/21/24 07:24
Intake and Output
10/20/24 10/21/24 10/22/24
06:59 06:59 06:59
Intake Total 840 / 840 1500 / 1500
Output Total 400 / 400 1445 / 1445
Balance 440 / 440 55 / 55
SaO2 93
Nasal Cannula flow liters per 2
minute
Physical Exam
General: Respiratory Distress (negative), Pain (left-sided hemithorax), Chills (negative) and Other (anxious appearing)
HEENT: Normocephalic and Anicteric
Cardiovascular: S1-S2 and Peripheral Edema (negative)
Respiratory: Wheeze (negative), Crackles (left middle lung field), Rhonchi (negative), Non-Labored Respirations, Stridor (negative), Chest Tube (Left hemithorax on -20 cmH2O suction) and Other (Decreased air entry in the left posterior hemithorax
from base up to middle lung field)
GI: Soft, Non Distended, Non Tender and Normal Bowel Sounds
Neurology: Awake, Alert, Oriented and Tremors (negative)
Skin: Warm, Dry, Cyanosis (negative) and Jaundice (negative)
Labs/Micro/Reports
Lab Data
10/21/24 07:55
10/21/24 07:55
Microbiology
10/19/24 14:48 Pleural Fluid Body Fluid Culture - Final
Staph aureus MRSA
10/19/24 14:48 Pleural Fluid Gram Stain - Final
10/20/24 14:25 Pleural Fluid Gram Stain - Preliminary
10/20/24 14:25 Pleural Fluid Fungal Culture - Preliminary
Culture in progress.
Positive cultures are reported as soon as detected.
Final report to follow in four to five weeks.
[2024-10-21] MEDS: TYLENOL PO (17:32)
[2024-10-21] MEDS: LIPITOR 40 MG PO (18:06)
[2024-10-21] MEDS: SINGULAIR 10 MG PO (18:06)
--- NOTE | 2024-10-21 18:31 | PTCARENOTE ---
pt had tPA/DNase around 14'30 CT clapmed for 2 hours; after unclamping the CT at 16:30 pt started feeling SOB and reported pain to left shoulder. PRN morphine given without much relief. supplemental Oxygen applied with some relief. DR Ernst
(pulmonary) made aware and at bedside to assess patient. Report given to production shift supervisor RN for ongoing care plan.
[2024-10-21] MEDS: OSCAL 500 + D PO ×2 (19:56→20:05)
[2024-10-21] MEDS: VALIUM INJECTION 1.25 MG IM (19:57)
[2024-10-21] MEDS: LOPRESSOR 25 MG PO (19:57)
[2024-10-21] MEDS: TYLENOL 500 MG PO (21:18)
[2024-10-22] VITALS (7 sets, daily range): BP systolic 95–109; BP diastolic 51–64
[2024-10-22] MEDS: SYNTHROID 200 MCG PO (05:12)
[2024-10-22 08:09] LABS: Hematocrit 24.8 % (37.0-47.0); Hemoglobin 8.2 g/dL (12.0-16.0); Mean Corp Hgb Conc. 33.1 g/dL (33.0-37.0); Mean Corpuscular Volume 89.9 fL (81.0-99.0); Nucleated Red Blood Cells % 0.3 %; Platelet Count 220 10^3/uL (130-400); Red Cell Dist. Width 18.2 % (11.5-14.5)
[2024-10-22 08:38] LABS: ALT (SGPT) 13 U/L (0-35); AST (SGOT) 20 U/L (14-36); Albumin 2.5 g/dl (3.5-5.0); Alkaline Phosphatase 99 U/L (38-126); Blood Urea Nitrogen 35 mg/dl (7-17); Calcium 7.5 mg/dl (8.4-10.2); Carbon Dioxide 31 mmol/L (22-30); Chloride 95 mmol/L (98-107); Estimated Creatinine Clearance 37 ml/min; Glucose 103 mg/dl (70-99); Magnesium 1.9 mg/dl (1.6-2.3); Potassium 3.5 mmol/L (3.5-5.1); Sodium 131 mmol/L (135-145); Total Protein 4.9 g/dl (6.3-8.2); eGFR 41.83
--- NOTE | 2024-10-22 09:07 | PHA.VAN.FU ---
Vancomycin Assessment / Plan
- Assessment
Renal Function: SCR Decreasing
WBC's are: Trending Down
In the past 24 hrs, patient has been: Afebrile
- Assessment - Therapeutic Drug Monitoring
Random Level: 16 - drawn ~18H after previous dose of 1g
- Dosing Plan
Dosing by Level: Re-dose today (Vanc 1000mg)
Unclear if patient may require prolonged dosing interval
Will keep consistent dosing today and follow level trend
- Monitoring Plan
Random Level: 10/23 06
- Follow Up
Pharmacy will continue to follow.
Vancomycin Follow UP
- -
Patient Age: 78
Patient Sex: Female
Vancomycin Day #: 3
Indication: Pulmonary/Respiratory
Requesting Provider: Dr. Norwood / [place]
Pertinent Antimicrobial Allergies:
erythromycin base - vomiting
Height / Weight:
Height 5 ft 5 in
Actual Weight 80.694 kg
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
- Vital Signs / Lab Results
Temp Pulse Resp BP Pulse Ox
97.6 F 89 17 109/64 97
10/22/24 07:20 10/22/24 07:20 10/22/24 07:20 10/22/24 07:20 10/22/24 07:20
Lab Results - Hematology
10/20/24 10/21/24 10/22/24
05:44 07:55 07:24
WBC 22.3 H 18.8 H 14.8 H
Lab Results - Chemistry
10/20/24 10/21/24 10/22/24
05:44 07:55 07:24
BUN 33 H 34 H 35 H
Creatinine 1.4 H 1.5 H 1.3 H
Estimated Creat Clear 34 32 37
Albumin 3.2 L 2.7 L 2.5 L
Microbiology Results
10/20/24 14:25 Body Fluid Culture - Final
Pleural Fluid Staph aureus MRSA
Gram Stain - Final
10/20/24 11:24 MRSA Screen - Final
Nose Staph aureus MRSA
10/19/24 14:48 Body Fluid Culture - Final
Pleural Fluid Staph aureus MRSA
Gram Stain - Final
10/20/24 14:25 Fungal Culture - Preliminary
Pleural Fluid Culture in progress.
Positive cultures are reported as soon as detected.
Final report to follow in four to five weeks.
Therapeutic Drug Monitoring
Random Vancomycin 16.0 ug/ml 10/22/24 07:24
[2024-10-22] MEDS: ASPIR LOW (ENTERIC COATED) 81 MG PO (09:16)
[2024-10-22] MEDS: FEMARA 2.5 MG PO (09:17)
[2024-10-22] MEDS: PROTONIX 40 MG PO ×2 (09:17→20:34)
[2024-10-22] MEDS: MIRALAX 17 GRAMS PO (09:17)
[2024-10-22] MEDS: LOPRESSOR 25 MG PO (09:17)
[2024-10-22] MEDS: OSCAL 500 + D 500 MG PO (09:17)
[2024-10-22] MEDS: TYLENOL 1000 MG PO ×3 (09:17→22:23)
[2024-10-22] MEDS: COLACE 100 MG PO (09:17)
--- NOTE | 2024-10-22 10:36 | W.PN.ID1 ---
Date of Service
Date of Service: October 22, 2024
Today's Communication
- follow up output from chest tube
- agree with vancomycin at this time, for eventual deescalation to oral antibiotics to complete a course
Assessment / Plan
MRSA Empyema
H/o previous thoracentesis
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
- await pathology
- follow up output from chest tube
- agree with vancomycin at this time, for eventual deescalation to oral antibiotics to complete a course
Chief Complaint
-: Other (MRSA empyema)
Subjective / Review of Systems
afebrile
bp stable
no new complaints, no events overnight
Vital Signs / Physical Exam
Vital Signs
Vital Signs
Temp Pulse Resp BP Pulse Ox
97.6 F 89 17 109/64 97
10/22/24 07:20 10/22/24 07:20 10/22/24 07:20 10/22/24 07:20 10/22/24 07:20
Physical Exam
Constitutional: No Acute Distress
Cardiovascular: Regular Rate and S1/S2; Negative Murmur or Rub
Pulmonary: Clear and Symmetric; Negative Wheezes or Rales
Gastrointestinal: Soft, Non Tender, Non Distended and Normal Bowel Sounds
Skin: Warm and Dry; Negative Rash or Jaundice
Physical Exam:
chest tube
Objective Data
Lab Data
Lab Results
10/22/24 07:24
10/22/24 07:24
PT 15.2 Sec (11.4-14.6) H 10/19/24 10:07
INR 1.15 10/19/24 10:07
APTT 32.7 Sec (23.4-35.0) 10/19/24 10:07
Estimated Creat Clear 37 ml/min 10/22/24 07:24
Total Bilirubin 0.8 mg/dl (0.2-1.3) 10/22/24 07:24
AST 20 U/L (14-36) 10/22/24 07:24
ALT 13 U/L (0-35) 10/22/24 07:24
Alkaline Phosphatase 99 U/L (38-126) 10/22/24 07:24
Most recent labs reviewed.
Micro Results:
10/20/24 14:25 Body Fluid Culture - Final
Pleural Fluid Staph aureus MRSA
Gram Stain - Final
10/20/24 11:24 MRSA Screen - Final
Nose Staph aureus MRSA
10/19/24 14:48 Body Fluid Culture - Final
Pleural Fluid Staph aureus MRSA
Gram Stain - Final
10/20/24 14:25 Fungal Culture - Preliminary
Pleural Fluid Culture in progress.
Positive cultures are reported as soon as detected.
Final report to follow in four to five weeks.
10/20/24 14:25 Acid Fast Bacilli Smear - Pending
Pleural Fluid Acid Fast Bacilli Culture - Pending
Fluid Cult/not urine Final 10/21/24-0831
Few Staph aureus MRSA
Isolation Precautions Required
Called to [id number] on 10/20/24 at 1443 by [place] [id number]
Organism 1 Staph aureus MRSA
1. Staph aureus MRSA
M.I.C. RX
--------- ---
Amoxicillin/Potas. Clavulanate >4/2 R
Ampicillin >8 R
Clindamycin <=0.5 S
Gentamicin <=4 S
Erythromycin >4 R
Levofloxacin >4 R
Oxacillin >2 R
Tetracycline <=4 S
Trimethoprim/Sulfamethoxazole <=0.5/9.5 S
Vancomycin 1 S
--- NOTE | 2024-10-22 11:40 | W.PN.HOSP.TC ---
Today's Communication/Plan
-
Monitor vital signs and see plan
Chest tube per IR and pulmonary
wean o2 as tolerated
xanax prn
monitor chest tube
Assessment / Plan
Assessment / Plan
General: No distress
HEENT: Moist mucous membranes, PERRLA and Other (Fullness over L mandibular head. non Tender)
Respiratory: Clear; No Wheezes, + chest tube
Cardiac: S1/S2 and Regular Rhythm; No Murmur
GI: Other (Abdomen is distended and firm. No focal tenderness.)
Genito-urinary: Other (L PCN in place draining yellow urine.)
Musculoskeletal: Other (b/l LE edema)
Neuro: AO x 3
Left Mandible Subluxation
- Evident prominence and tenderness over the L TMJ area. Now improving
- CT scan done in the ED shows subluxation of the L mandibular head with adjacent high attenuation - ? crystal or inflammatory arthropathy.
rest,ice application. pain control. started prednisone, will do short course. Finished prednisone
- Pain control / supportive care.
- Consult placed for OMFS for further recommendations however no reply. Seen by ENT, follow-up outpatient
Leukocytosis likely secondary to steroid and possible empyema
Acute hypoxic respiratory insufficiency likely secondary to atelectasis and left-sided pleural effusion with empyema
on 2L
Recent thoracentesis and paracentesis on last admission. Appears recurrent
Chest x-ray with large pleural effusion with associated compressive atelectasis/airspace consolidation
IR consulted for Thora and para; drained 900 cc bloody pleural fluid on Thora, not much on para so was on not performed, labs consistent with empyema. Follow cultures and cytology. cx with MRSA. started vancomycin. ID evaluation
Status post chest tube 10/20, monitor chest tube per IR and pulmonary
s/p IR tPA/dornase. repat xray 10/22 with small possible pneumo. Discussed with pulmonary, likely trapped lung
Pulmonary following
Wean oxygen as tolerated
IV lasix 10/21
Hypocalcemia
Continue with calcium repletion
Hypomagnesemia, resolved
Hypokalemia, replete
- Patient was treated for HYPERcalcemia in August with IVFs and Pamidronate.
- Since has had HYPOcalcemia requiring supplementation.
- Follow lytes and adjust treatment as needed.
Left Ureteral Obstruction
- s/p prior ureteral stent. Now with L PCN in place. appears to be bleeding. asked IR to evaluate. Requested CT abdomen/pelvis without acute abnormality regarding nephrostomy. Status post nephrostomy study by IR, drain looks okay. Dressing
changed by IR. Appears some ascites and the paracolic gutter around the drain and the tract is likely friable so possible draining blood-tinged ascites.
- Maintain urostomy.
Acute on chronic anemia likely multifactorial from acute blood loss, anemia of Chronic Disease / Chronic Iron Deficiency
Appears to have some bleeding from left PCN, IR requested CT abdomen/pelvis which is ordered
s/p 1 unit PRBC. Antibody positive on type and screen.
Monitor hemoglobin; 8.2 today
ferritin high
Spindle Cell Cancer
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
Ascites
- Continue letrozole.
- Ascites presumed malignant though pathology negative on last admission paracentesis. Not much fluid this time for paracentesis
- Follow-up with Oncology after discharge. Patient to follow-up with Dr. Teixeira at [facility]
Prolonged QTc
Holding Lexapro
Monitor
Hyponatremia
Monitor
Anxiety
xanax prn
ASCVD / CVA
- Stable. No new neurologic deficits.
- Continue ASA, statin, etc.
CKD III
- Stable. Renal function is at / near known baseline. Follow for changes.
GERD / History of GI Bleeding
- Patient intolerant of NSAIDs / oral steroids given history of GI bleeding.
- Continue PPI.
- Follow for any new symptoms.
History of hypothyroidism
Continue Synthroid, recently changed per patient. TSH high here, advised patient to follow-up with primary care provider soon outpatient for possible repeat test
DVT Prophylaxis: Subcut Heparin
Code Status: Full
I spent a total of 52 minutes with the patient or on the floor. More than 50% of this time involved counseling and coordination of care.
Anticipated Discharge: > 48 hours
Subjective/Interval History
-
Date of Service: October 22, 2024
denies nausea
Objective Data
-
Labs:
Laboratory Results
10/22/24
07:24
WBC 14.8 H
Hgb 8.2 L
Hct 24.8 L
Plt Count 220
Sodium 131 L
Potassium 3.5
Chloride 95 L
Carbon Dioxide 31 H
BUN 35 H
Creatinine 1.3 H
Glucose 103 H
Calcium 7.5 L
Total Bilirubin 0.8
AST 20
ALT 13
Alkaline Phosphatase 99
Vital Signs:
Vital Signs
Temp Pulse Resp BP Pulse Ox
97.5 F 76 17 98/56 97
10/22/24 11:15 10/22/24 11:15 10/22/24 11:15 10/22/24 11:15 10/22/24 11:15
I&O
10/21/24 10/22/24 10/23/24
06:59 06:59 06:59
Intake Total 1500 / 1500 1140 / 1140
Output Total 1445 / 1445 2765 / 2765
Balance 55 / 55 -1625 / -1625
[2024-10-22] MEDS: VANCOCIN 200 IV (12:06)
--- NOTE | 2024-10-22 15:33 | W.PN.PUL3 ---
Today's Communication / Plan
-
s/p tPA/dornase on 10/21 to help optimize left lung reexpansion
Follow-up remaining pleural fluid cultures (fungus + AFB - NGTD)
Continue IV vancomycin per ID
Follow-up pleural fluid cytopathology
CXR today shows small left basilar pneumothorax, however this air pocket appeared on previous CXR and may be due to trapped lung physiology; patient clinically feels well
Repeat CXR tomorrow and if needed may need additional tPA/dornase
Monitor chest tube output
Pulmonary service will continue to follow
Assessment
-
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
pain. 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 Patient has been on prednisone since.
Patient also has been reporting gradually worsening shortness of breath over the last few weeks without any cough or wheezing. Patient required supplemental oxygen and additional workup included chest x-ray which was suggestive of large pleural
effusion. Of note patient had a similar presentation in 09/2024 with large left-sided pleural effusion and had IR guided thoracentesis performed and fluid was noted to be exudative. Culture stayed negative and cytology was also negative for any
malignancy. She also had paracentesis performed and cytology was negative for malignant cells. For her abdominal spindle cell carcinoma, patient has a complicating left hydronephrosis for which nephrostomy tube was placed in 08/2024. She follows
at [facility] and also locally with [facility]. Patient reports that she was scheduled for debulking surgery but then later the plan was changed to chemotherapy instead. Patient reports having been started on letrozole recently.
In view of recurrent enlarging pleural effusion on the left side, pulmonary consultation was requested for further input. Patient has history of mild intermittent asthma. No prior history of COPD or emphysema.
#1. 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
- s/p Thoracentesis 10/19, 900 ml of sanguinous fluid removed. Exudative with LDH 621, concerning for empyema with pH 7.1, glucose less than 30 and 29,000 WBCs with 80% polymorphonuclear cells. Incomplete lung expansion, suspected residual
loculations. MRSA screen positive
- IR placed chest tube on 10/20/2024
- Pleural fluid Cx positive for MRSA; pleural fluid fungal + AFB cultures show NGTD thus far
- Discussed case with IR on 10/21 and given suboptimal lung re-expansion on CXR, believe she would benefit from tpA/dornase --> given to her on 10/21 by IR with increased output thereafter
- Patient was initially started on Zosyn however now on IV vancomycin -ID consulted and defer antibiotics to them
- S/p thoracentesis in 09/2024, exudative fluid analysis, culture stayed negative and cytology was also negative for malignancy
- With underlying history of spindle cell cancer, malignant pleural effusion also a concern. Pleural fluid cytology yield can be 60 to 80%, hence if patient continues to have recurrence, indwelling pleural catheter placement will be appropriate.
With concomitant ascites, etiology of pleural fluid could be fluid migration from intraperitoneal area. Pleural and peritoneal fluid analysis on 09/2024 was very similar.
- Lasix as needed in view of pedal edema
- Check CXR tomorrow --> may need additional tPA/dornase to help additional chest tube drainage; would give her ativan in that case given her anxiety + SOB that happened after first lytic instillation
#2. Acute hypoxic respiratory failure.
- Suspect this is related to large left-sided pleural effusion with essentially complete atelectasis of left lung.
- Patient is otherwise afebrile and denies any cough or expectoration
- Continue supplemental oxygen and keep SpO2 >90-94%, titrating down as tolerated
- Treat with anxiolytics as needed given she is more anxious now s/p tPA/dornse on 10/21
- Continue ABx per ID
#3. H/o Asthma.
- No current wheezing
- Continue Montelukast
- PRN Albuterol
#4. Ascites
- Not enough fluid noted for paracentesis on 10/19
- Of note ascitic fluid cytology on 09/13/2024 was negative for malignancy
#5. History of spindle cell cancer
- Patient follows up with Dr. Teixeira at [facility] and also locally with [facility]
- Complicated by left hydronephrosis s/p nephrostomy tube placement in 08/2024
Other medical diagnoses:
Left TMJ pain, concern for inflammation versus dislocation. ENT service on case; s/p course of prednisone 40mg daily (10/16 - 10/20/2024)
Hypertension.
GI bleed.
Iron deficiency anemia.
SVT.
Anxiety.
GERD.
Leiomyoma of uterus-status post BSO 2007 2015
Thyroid cancer.
Asthma.
Arthritis.
IBS.
Recent CVA
Appendectomy. Thyroidectomy. Cholecystectomy. Cataract surgery. Bilateral knee replacement. Left ureteral stent. Hernia repair.
DVT prophylaxis with subcu heparin.
Total time spent today was 37 minutes for this encounter. Time includes reviewing laboratory test/imaging results, reviewing pertinent medical records, obtaining and reviewing medical history, performing an appropriate exam, ordering medications,
tests and procedures. Time also includes documentation of this encounter, coordinating patient care and communicating with other healthcare professionals. Total time does not include separately billed tests performed on this date of service.
Data:
CT A/P 10/2024: Stable abdominal and pelvic masses consistent with known spindle cell malignancy. Stable mass effect on the aorta and left kidney.
Stable left sided percutaneous nephrostomy tube. No evidence of complication.
Moderate abdominopelvic ascites. Stable.
Moderate left pleural effusion. Mildly improved.. Moderate left lower lobe consolidation. This may be atelectasis or developing pneumonia. Stable
Moderate fecal material throughout the colon. Increased
Mild diverticulosis. Stable
CT Facial bones 10/2024: 1. Moderate anterior and lateral subluxation of the left mandibular condylar head with adjacent high attenuation along the medial side of the mandibular condylar head. Diagnostic possibilities are (1) dislocation of the
left temporomandibular joint meniscus, (2) a crystal arthropathy with adjacent soft tissue calcification, or (3) an inflammatory arthropathy with surrounding synovitis.
2. Moderate left sphenoid sinusitis.
3. Severe discogenic degenerative disease at C4/C5 and C5/C6.
4. Severe right-sided facet joint arthrosis at C3/C4.
5. Previous total thyroidectomy.
ECHO 05/2024: Mild concentric left ventricular hypertrophy. Normal left ventricular chamber
size. Normal left ventricular systolic function. Left ventricular ejection
fraction is 69% by Escalante's method. Normal diastolic function.
Mitral valve opens normally. Mild to moderate mitral regurgitation.
Trileaflet aortic valve. Thickened aortic valve with normal leaflet excursion.
Aortic sclerosis without stenosis. Trace aortic insufficiency.
Tricuspid valve opens normally. Moderate tricuspid regurgitation. Estimated
pulmonary artery pressure of 35 mmHg, assuming a right atrial pressure of 3
mmHg.
Since echo August 2017, there is no significant change.
Subjective Data
-
Date of Service:
Date of Service: October 22, 2024
Chief Complaint: Pulmonary Follow Up
Subjective:
Patient seen and evaluated today at bedside (late note entry). Left-sided chest tube remains on -20 cmH2O suction, with 1.375 L output over the last 24 hours. She feels much better today. Has mild chest discomfort when she takes a deep breath,
otherwise denies SOB, VILLAGRAN, nausea, fevers or chills.
Review of Systems
General: Other (Negative unless mentioned above)
Objective Data
Data Reviewed
Vital Signs / I&O / Oxygen:
Vital Signs
Temp Pulse Resp BP Pulse Ox
97.6 F 89 17 109/64 97
10/22/24 07:20 10/22/24 07:20 10/22/24 07:20 10/22/24 07:20 10/22/24 07:20
Intake and Output
10/21/24 10/22/24 10/23/24
06:59 06:59 06:59
Intake Total 1500 / 1500 1140 / 1140
Output Total 1445 / 1445 2765 / 2765
Balance 55 / 55 -1625 / -1625
SaO2 97
Nasal Cannula flow liters per 2
minute
Physical Exam
General: Respiratory Distress (negative), Pain (left-sided hemithorax with deep breath) and Chills (negative)
HEENT: Normocephalic and Anicteric
Cardiovascular: S1-S2 and Peripheral Edema (+2 LE pitting edema b/l)
Respiratory: Wheeze (negative), Crackles (left middle lung field), Rhonchi (negative), Non-Labored Respirations, Stridor (negative), Chest Tube (Left hemithorax on -20 cmH2O suction) and Other (Decreased air entry in the left posterior hemithorax
from base up to middle lung field)
GI: Soft, Non Distended, Non Tender and Normal Bowel Sounds
Neurology: Awake, Alert, Oriented and Tremors (negative)
Skin: Warm, Dry, Cyanosis (negative) and Jaundice (negative)
Labs/Micro/Reports
Lab Data
10/22/24 07:24
10/22/24 07:24
Microbiology
10/20/24 14:25 Pleural Fluid Body Fluid Culture - Final
Staph aureus MRSA
10/20/24 14:25 Pleural Fluid Gram Stain - Final
10/20/24 11:24 Nose MRSA Screen - Final
Staph aureus MRSA
10/19/24 14:48 Pleural Fluid Body Fluid Culture - Final
Staph aureus MRSA
10/19/24 14:48 Pleural Fluid Gram Stain - Final
10/20/24 14:25 Pleural Fluid Fungal Culture - Preliminary
Culture in progress.
Positive cultures are reported as soon as detected.
Final report to follow in four to five weeks.
[2024-10-22] MEDS: LIPITOR 40 MG PO (17:45)
[2024-10-22] MEDS: SINGULAIR 10 MG PO (17:45)
[2024-10-22] MEDS: OSCAL 500 + D PO (20:31)
[2024-10-22] MEDS: COLACE PO ×2 (20:34→20:45)
[2024-10-22] MEDS: HEPARIN 5000 UNITS SC (20:34)
[2024-10-22] MEDS: LOPRESSOR PO (22:23)
[2024-10-23 03:00] VITALS: BP 107/57
--- NOTE | 2024-10-23 05:22 | PTCARENOTE ---
Addendum entered by Ariane Jones RN 10/23/24 05:33:
Patient's tele alarming for ' high Qtc. Updated CHIQUI Savage. EKO done and updated.
Original Note:
Patient stated she wants to take Synthroid later.
[2024-10-23 06:00] VITALS: BMI 29.4
[2024-10-23 07:04] LABS: Hematocrit 24.9 % (37.0-47.0); Hemoglobin 8.2 g/dL (12.0-16.0); Mean Corp Hgb Conc. 32.9 g/dL (33.0-37.0); Mean Corpuscular Volume 89.9 fL (81.0-99.0); Nucleated Red Blood Cells % 0.3 %; Platelet Count 218 10^3/uL (130-400); Red Cell Dist. Width 18.1 % (11.5-14.5)
[2024-10-23 07:23] VITALS: BP 108/61
[2024-10-23 07:34] LABS: ALT (SGPT) 19 U/L (0-35); AST (SGOT) 40 U/L (14-36); Albumin 2.5 g/dl (3.5-5.0); Alkaline Phosphatase 96 U/L (38-126); Blood Urea Nitrogen 34 mg/dl (7-17); Calcium 7.4 mg/dl (8.4-10.2); Carbon Dioxide 31 mmol/L (22-30); Chloride 95 mmol/L (98-107); Estimated Creatinine Clearance 40 ml/min; Glucose 92 mg/dl (70-99); Magnesium 2.0 mg/dl (1.6-2.3); Potassium 3.3 mmol/L (3.5-5.1); Sodium 132 mmol/L (135-145); Total Protein 4.9 g/dl (6.3-8.2); eGFR 46.05
[2024-10-23] MEDS: TYLENOL 1000 MG PO ×3 (08:54→22:36)
[2024-10-23] MEDS: COLACE 100 MG PO (08:54)
[2024-10-23] MEDS: FEMARA 2.5 MG PO (08:54)
[2024-10-23] MEDS: PROTONIX 40 MG PO ×2 (08:54→22:36)
[2024-10-23] MEDS: ASPIR LOW (ENTERIC COATED) 81 MG PO (08:54)
[2024-10-23] MEDS: HEPARIN 5000 UNITS SC ×2 (08:55→22:42)
[2024-10-23] MEDS: MIRALAX 17 GRAMS PO (08:55)
[2024-10-23] MEDS: OSCAL 500 + D 500 MG PO ×2 (08:55→22:36)
[2024-10-23] MEDS: LOPRESSOR 25 MG PO ×2 (08:55→22:37)
[2024-10-23] MEDS: SYNTHROID 200 MCG PO (08:55)
--- NOTE | 2024-10-23 09:08 | PHA.VAN.FU ---
Vancomycin Assessment / Plan
- Assessment
Renal Function: SCR Increasing
WBC's are: Trending Down
In the past 24 hrs, patient has been: Afebrile
- Assessment - Therapeutic Drug Monitoring
Random Level: 17.9 - drawn ~18.5H after previous dose of 1g
- Dosing Plan
Dosing by Level: Hold off on dosing today (patient with accumulation - will hold off on dosing to assess half-life with repeat level)
- Monitoring Plan
Random Level: 10/24 06
- Follow Up
Pharmacy will continue to follow.
Vancomycin Follow UP
- -
Patient Age: 78
Patient Sex: Female
Vancomycin Day #: 4
Indication: Pulmonary/Respiratory
Requesting Provider: Dr. Norwood / [place]
Pertinent Antimicrobial Allergies:
erythromycin base - vomiting
Height / Weight:
Height 5 ft 5 in
Actual Weight 80.059 kg
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
- Vital Signs / Lab Results
Temp Pulse Resp BP Pulse Ox
97.7 F 89 18 108/61 96
10/23/24 07:23 10/23/24 08:55 10/23/24 07:23 10/23/24 08:55 10/23/24 07:23
Lab Results - Hematology
10/21/24 10/22/24 10/23/24
07:55 07:24 06:27
WBC 18.8 H 14.8 H 13.2 H
Lab Results - Chemistry
10/21/24 10/22/24 10/23/24
07:55 07:24 06:27
BUN 34 H 35 H 34 H
Creatinine 1.5 H 1.3 H 1.2 H
Estimated Creat Clear 32 37 40
Albumin 2.7 L 2.5 L 2.5 L
Microbiology Results
10/20/24 14:25 Acid Fast Bacilli Smear - Preliminary
Pleural Fluid Acid Fast Bacilli Culture - Preliminary
10/20/24 14:25 Body Fluid Culture - Final
Pleural Fluid Staph aureus MRSA
Gram Stain - Final
10/20/24 11:24 MRSA Screen - Final
Nose Staph aureus MRSA
10/19/24 14:48 Body Fluid Culture - Final
Pleural Fluid Staph aureus MRSA
Gram Stain - Final
Therapeutic Drug Monitoring
Random Vancomycin 17.9 ug/ml 10/23/24 06:27
--- NOTE | 2024-10-23 09:12 | W.PN.PUL3 ---
Today's Communication / Plan
-
She is currently doing well, stable on room air
Output reviewed, diminished in the past 24 hours
She is willing to do lytics but she prefers to wait until tomorrow
Continued on IV antibiotics per ID
Will check proBNP and VBG
Assessment
-
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
pain. 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 Patient has been on prednisone since. Patient also has been reporting gradually worsening
shortness of breath over the last few weeks without any cough or wheezing. Patient required supplemental oxygen and additional workup included chest x-ray which was suggestive of large pleural effusion. Of note patient had a similar presentation
in 09/2024 with large left-sided pleural effusion and had IR guided thoracentesis performed and fluid was noted to be exudative. Culture stayed negative and cytology was also negative for any malignancy. She also had paracentesis performed and
cytology was negative for malignant cells. For her abdominal spindle cell carcinoma, patient has a complicating left hydronephrosis for which nephrostomy tube was placed in 08/2024. She follows at [facility] and also locally with [facility].
Patient reports that she was scheduled for debulking surgery but then later the plan was changed to chemotherapy instead. Patient reports having been started on letrozole recently. In view of recurrent enlarging pleural effusion on the left side,
pulmonary consultation was requested for further input. Patient has history of mild intermittent asthma. No prior history of COPD or emphysema.
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
s/p chest tube placement
Acute hypoxic respiratory failure.
Leukocytosis
Hyponatremia, mild
Hypokalemia
Metabolic alkalosis
CKD suspected, creatinine baseline 1.2�1.6
Other medical diagnoses:
Left TMJ pain, concern for inflammation versus dislocation. ENT service on case; s/p course of prednisone 40mg daily (10/16 - 10/20/2024)
History of spindle cell cancer
Asthma
Hypertension.
H/o GI bleed.
Iron deficiency anemia.
SVT.
Anxiety.
GERD.
Leiomyoma of uterus-status post BSO 2007 2015
Thyroid cancer.
Arthritis.
IBS.
Recent CVA
Appendectomy. Thyroidectomy. Cholecystectomy. Cataract surgery. Bilateral knee replacement. Left ureteral stent. Hernia repair.
Plan
Currently stable on room air
Offers no complaints
MRSA effusion
s/p Thoracentesis 10/19, 900 ml of sanguinous fluid removed. Exudative with LDH 621, concerning for empyema with pH 7.1, glucose less than 30 and 29,000 WBCs with 80% polymorphonuclear cells. Incomplete lung expansion, suspected residual
loculations. MRSA screen positive
IR placed chest tube on 10/20/2024
Pleural fluid Cx positive for MRSA; pleural fluid fungal + AFB cultures show NGTD thus far
Discussed case with IR on 10/21 and given suboptimal lung re-expansion on CXR, believe she would benefit from tpA/dornase --> given to her on 10/21 by IR with increased output thereafter
Output reviewed 1300 mL -> 1375 -> 180 mL thus far
She is willing to retry lytics, but would like to wait until tomorrow
Patient was initially started on Zosyn however now on IV vancomycin -ID consulted and defer antibiotics to them
Culture positive on 10/20/2024 with Staph aureus
Lasix as needed in view of pedal edema
Will check proBNP
Prior recent echo reviewed with stable function
She has metabolic alkalosis noted
Will obtain baseline VBG in a.m.
Patient has history of asthma
No current wheezing, not currently on nebs/inhalers
Continue Montelukast
PRN Albuterol
Ascites- Not enough fluid noted for paracentesis on 10/19
Of note ascitic fluid cytology on 09/13/2024 was negative for malignancy
Patient follows up with Dr. Teixeira at [facility] and also locally with [facility] [facility]
Complicated by left hydronephrosis s/p nephrostomy tube placement in 08/2024
DVT prophylaxis with subcu heparin.
Data:
CT A/P 10/2024: Stable abdominal and pelvic masses consistent with known spindle cell malignancy. Stable mass effect on the aorta and left kidney. Stable left sided percutaneous nephrostomy tube. No evidence of complication. Moderate abdominopelvic
ascites. Stable. Moderate left pleural effusion. Mildly improved.. Moderate left lower lobe consolidation. This may be atelectasis or developing pneumonia. Stable Moderate fecal material throughout the colon. Increased Mild diverticulosis. Stable
CT Facial bones 10/2024: 1. Moderate anterior and lateral subluxation of the left mandibular condylar head with adjacent high attenuation along the medial side of the mandibular condylar head. Diagnostic possibilities are (1) dislocation of the
left temporomandibular joint meniscus, (2) a crystal arthropathy with adjacent soft tissue calcification, or (3) an inflammatory arthropathy with surrounding synovitis.
2. Moderate left sphenoid sinusitis.
3. Severe discogenic degenerative disease at C4/C5 and C5/C6.
4. Severe right-sided facet joint arthrosis at C3/C4.
5. Previous total thyroidectomy.
ECHO 05/2024: Mild concentric left ventricular hypertrophy. Normal left ventricular chamber size. Normal left ventricular systolic function. Left ventricular ejection fraction is 69% by Escalante's method. Normal diastolic function. Mitral valve
opens normally. Mild to moderate mitral regurgitation. Trileaflet aortic valve. Thickened aortic valve with normal leaflet excursion. Aortic sclerosis without stenosis. Trace aortic insufficiency. Tricuspid valve opens normally. Moderate
tricuspid regurgitation. Estimated pulmonary artery pressure of 35 mmHg, assuming a right atrial pressure of 3 mmHg.
Since echo August 2017, there is no significant change.
Total time spent on this consultation/encounter __50__ minutes which includes review of history, physical exam, medications, laboratory data, personal review of imaging, extensive review of outpatient records, discussion with care team and
respiratory therapy.
Subjective Data
-
Date of Service:
Date of Service: October 23, 2024
Chief Complaint: Pulmonary Follow Up
Subjective:
no new complaints, stable on room air
Chest tube remains
Objective Data
Data Reviewed
Vital Signs / I&O / Oxygen:
Vital Signs
Temp Pulse Resp BP Pulse Ox
97.7 F 89 18 108/61 96
10/23/24 07:23 10/23/24 08:55 10/23/24 07:23 10/23/24 08:55 10/23/24 07:23
Intake and Output
10/22/24 10/23/24 10/24/24
06:59 06:59 06:59
Intake Total 1140 / 1140 360 / 360
Output Total 2765 / 2765 250 / 250
Balance -1625 / -1625 110 / 110
SaO2 96
Nasal Cannula flow liters per 2
minute
Physical Exam
General: Respiratory Distress (negative), Pain (left-sided hemithorax with deep breath) and Chills (negative)
HEENT: Normocephalic and Anicteric
Cardiovascular: S1-S2, Regular Rhythm and Peripheral Edema (+2 LE pitting edema b/l)
Respiratory: Wheeze (negative), Crackles (left middle lung field), Rhonchi (negative), Non-Labored Respirations, Stridor (negative), Chest Tube (Left hemithorax on -20 cmH2O suction) and Other (Decreased air entry in the left posterior hemithorax
from base up to middle lung field)
GI: Soft, Non Distended, Non Tender and Normal Bowel Sounds
Neurology: Awake, Alert, Oriented and Tremors (negative)
Skin: Warm, Dry, Cyanosis (negative) and Jaundice (negative)
Labs/Micro/Reports
Lab Data
10/23/24 06:27
10/23/24 06:27
Microbiology
10/20/24 14:25 Pleural Fluid Acid Fast Bacilli Smear - Preliminary
10/20/24 14:25 Pleural Fluid Acid Fast Bacilli Culture - Preliminary
10/20/24 14:25 Pleural Fluid Body Fluid Culture - Final
Staph aureus MRSA
10/20/24 14:25 Pleural Fluid Gram Stain - Final
10/20/24 11:24 Nose MRSA Screen - Final
Staph aureus MRSA
10/19/24 14:48 Pleural Fluid Body Fluid Culture - Final
Staph aureus MRSA
10/19/24 14:48 Pleural Fluid Gram Stain - Final
10/20/24 14:25 Pleural Fluid Fungal Culture - Preliminary
Culture in progress.
Positive cultures are reported as soon as detected.
Final report to follow in four to five weeks.
--- NOTE | 2024-10-23 10:07 | W.PN.ID1 ---
Date of Service
Date of Service: October 23, 2024
Today's Communication
- agree with vancomycin at this time, for eventual deescalation to oral antibiotics to complete a course
Assessment / Plan
MRSA Empyema
H/o previous thoracentesis
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
- await pathology
- follow up output from chest tube - remains high
- agree with vancomycin at this time, for eventual deescalation to oral antibiotics to complete a course
Chief Complaint
-: Other (MRSA empyema)
Subjective / Review of Systems
afebrile
bp stable
continues with high chest tube output
Vital Signs / Physical Exam
Vital Signs
Vital Signs
Temp Pulse Resp BP Pulse Ox
97.7 F 89 18 108/61 96
10/23/24 07:23 10/23/24 08:55 10/23/24 07:23 10/23/24 08:55 10/23/24 07:23
Physical Exam
Constitutional: No Acute Distress and Chronically Ill
Cardiovascular: Regular Rate and S1/S2; Negative Murmur or Rub
Pulmonary: Clear and Symmetric; Negative Wheezes or Rales
Gastrointestinal: Soft, Non Tender, Non Distended and Normal Bowel Sounds
Skin: Warm and Dry; Negative Rash or Jaundice
Objective Data
Lab Data
Lab Results
10/23/24 06:27
10/23/24 06:27
PT 15.2 Sec (11.4-14.6) H 10/19/24 10:07
INR 1.15 10/19/24 10:07
APTT 32.7 Sec (23.4-35.0) 10/19/24 10:07
Estimated Creat Clear 40 ml/min 10/23/24 06:27
Total Bilirubin 0.8 mg/dl (0.2-1.3) 10/23/24 06:27
AST 40 U/L (14-36) H 10/23/24 06:27
ALT 19 U/L (0-35) 10/23/24 06:27
Alkaline Phosphatase 96 U/L (38-126) 10/23/24 06:27
Most recent labs reviewed.
Micro Results:
10/20/24 14:25 Acid Fast Bacilli Smear - Preliminary
Pleural Fluid Acid Fast Bacilli Culture - Preliminary
10/20/24 14:25 Body Fluid Culture - Final
Pleural Fluid Staph aureus MRSA
Gram Stain - Final
10/20/24 11:24 MRSA Screen - Final
Nose Staph aureus MRSA
10/19/24 14:48 Body Fluid Culture - Final
Pleural Fluid Staph aureus MRSA
Gram Stain - Final
10/20/24 14:25 Fungal Culture - Preliminary
Pleural Fluid Culture in progress.
Positive cultures are reported as soon as detected.
Final report to follow in four to five weeks.
--- NOTE | 2024-10-23 10:11 | PTCARENOTE ---
QTC alarming high on tele monitor, K 3.3 this AM, made aware. No new orders at this time.
[2024-10-23] MEDS: KCL 20 MEQ PO (10:56)
[2024-10-23 11:15] VITALS: BP 104/55
--- NOTE | 2024-10-23 13:26 | CM ---
CM following re: discharge planning.
Reviewed pt's chart, met with pt.
Pt lives with 2SH, 1 step to enter, has 2 supportive children. Pt reports she ambulates with a walker, current with [facility]. Pt continues pursuing her idea to return back home at discharge with [facility]. Pt stated: 'my son lives in [facility],
he is [employer] editorial producer and coming often to help. My daughter is a teacher at [employer] and lives locally in [place] and [facility]. My needs my little help and i need to come back home to just direct my for 57 years'.
Per PT and OT pt has been refusing to participate in therapy sessions.
[facility] has accepted the pt for services.
[facility] discharge instructions fax: [phone]
D/C plan: per pt's request, home with [facility] and family support.
CM will follow with discharge plan updates as hospitalization progresses
--- NOTE | 2024-10-23 13:46 | W.PN.HOSP.TC ---
Today's Communication/Plan
-
Monitor chest tube output
Remains on IV vancomycin, ID following
Repeat tPA/DNase per pulm
Assessment / Plan
Assessment / Plan
Left empyema from MRSA
Possible trapped lung
Acute hypoxic reps insufficiency - resolved
-Chest x-ray with large pleural effusion with associated compressive atelectasis/airspace consolidation
-s/p Thora with drainage of 900 cc serosanguineous fluid. Fluid studies showing pH 7.14 with WBC 29K 80% PMN.
-Pleural fluid culture later reported to be MRSA
-With history of patient malignancy need to rule out any underlying malignancy as well. Await cytopathology report
-Status post IR tPA/DNase infusion and left pleural tube on 10/22.
-Follow-up chest x-ray showing possibility of trapped lung
-Pulmonology considering repeat round of tPA/DNase instillation in left pleura tube
-Chest tube drain output of 180 mL over 24-hour. monitor
-ID following and maintaining on vancomycin for now. Help appreciated.
Left Mandible Subluxation
-Evident prominence and tenderness over the L TMJ area. Improving.
-CT scan done in the ED shows subluxation of the L mandibular head with adjacent high attenuation - ? crystal or inflammatory arthropathy.
-Dr. Norwood unable to get hold of OMFS. ENT evaluated and recommended course of steroid which patient finished. Patient to follow-up in office
Hypocalcemia
Hypomagnesemia
Hypokalemia
- replace as needed
- Patient was treated for HYPERcalcemia in August with IVFs and Pamidronate.
- Since has had HYPOcalcemia requiring supplementation.
- Follow lytes and adjust treatment as needed.
Left Ureteral Obstruction
Hematuria -resolved
- s/p prior ureteral stent. Now with L PCN in place.
- Patient was having some hematuria from left PCN. Status post CT abdomen pelvis and IR guided nephrostomy tube which were normal.
- continue monitoring
Acute on chronic anemia likely multifactorial
-from acute blood loss with hematuria/sanguinous CT tube drainage, anemia of Chronic Disease / Chronic Iron Deficiency
-s/p 1 unit PRBC. Antibody positive on type and screen.
- monitor hbg with PRN transfusion
Spindle Cell Cancer
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
Ascites
- Continue letrozole.
- Ascites presumed malignant though pathology negative on last admission paracentesis. Not much fluid this time for paracentesis
- Follow-up with Oncology after discharge. Patient to follow-up with Dr. Teixeira at [facility]
Prolonged QTc
-EKG reviewed and patient have baseline RBBB with QTc ranging anywhere between 510 to 550 ms
-Lexapro held , avoid QTc prolonging medication as possible
Hyponatremia
Anxiety
ASCVD / CVA
CKD III
GERD / History of GI Bleeding
History of hypothyroidism
DVT Prophylaxis: Subcut Heparin
Code Status: Full
Anticipated Discharge: > 48 hours
Subjective/Interval History
-
Date of Service: October 23, 2024
Resting comfortably in bed
Denies any shortness of breath
No left-sided pain at chest tube site
Afebrile
Objective Data
-
Labs:
Laboratory Results
10/23/24
06:27
WBC 13.2 H
Hgb 8.2 L
Hct 24.9 L
Plt Count 218
Sodium 132 L
Potassium 3.3 L
Chloride 95 L
Carbon Dioxide 31 H
BUN 34 H
Creatinine 1.2 H
Glucose 92
Calcium 7.4 L
Total Bilirubin 0.8
AST 40 H
ALT 19
Alkaline Phosphatase 96
Vital Signs:
Vital Signs
Temp Pulse Resp BP Pulse Ox
97.8 F 84 18 104/55 97
10/23/24 11:15 10/23/24 11:15 10/23/24 11:15 10/23/24 11:15 10/23/24 13:39
I&O
10/22/24 10/23/24 10/24/24
06:59 06:59 06:59
Intake Total 1140 / 1140 360 / 360 480 / 480
Output Total 2765 / 2765 250 / 250
Balance -1625 / -1625 110 / 110 480 / 480
Review of Systems
-
Respiratory: Reports No Symptoms
Cardiac: Reports No Symptoms
Abdomen/GI: Reports No Symptoms
Physical Exam
-
General: Comfortable; Negative Respiratory Distress
Respiratory: Clear to Auscultation and Chest Tubes (Left side - sero sanguinous drainage)
Cardiac: Regular Rhythm and S1/S2
GI: Tender and Distended
Neuro: Awake, Alert and Oriented; Negative Tremors
Psych: Calm; Negative Confused
[2024-10-23 15:10] VITALS: BP 105/58
[2024-10-23] MEDS: LIPITOR 40 MG PO (17:45)
[2024-10-23] MEDS: SINGULAIR 10 MG PO (17:45)
[2024-10-23 19:32] VITALS: BP 91/54
[2024-10-23] MEDS: COLACE PO (22:41)
[2024-10-23 23:42] VITALS: BP 101/54
[2024-10-24 03:07] VITALS: BP 94/49
[2024-10-24] MEDS: SYNTHROID 200 MCG PO (05:19)
[2024-10-24 06:32] LABS: Venous Blood Gas B.E. 7.4 mmol/L (-4 to +4); Venous Blood Gas O2 Sat % 99.8 %
[2024-10-24 06:33] LABS: Venous Blood Gas O2 Therapy RA
[2024-10-24 07:11] VITALS: BP 95/52
--- NOTE | 2024-10-24 08:43 | PTCARENOTE ---
Around 0600, this RN noticed significantly decreased CT output compared to previous shifts. No air leak, tidaling, or crepitus noted. Parameters for CT maintained, pt reports no increased pain at sight, no SOB, CP or discomfort r/t CT. Dressing
removed and showed CT was kinked near insertion site, the kink was undone and a scant amount serosanguineous drainage began to drain. PRODUCT TEST SPECIALIST notified & CXR ordered. Dayshift RN notified of change, pt continues to report no increased discomfort, SOB or
CP. Call martinez within reach and bed in lowest position and locked. Pt reports no further needs at this time.
[2024-10-24] MEDS: FEMARA 2.5 MG PO (09:41)
[2024-10-24] MEDS: LOPRESSOR PO ×2 (09:41→21:11)
[2024-10-24] MEDS: TYLENOL 1000 MG PO ×3 (09:42→22:14)
[2024-10-24] MEDS: HEPARIN 5000 UNITS SC ×2 (09:42→21:02)
[2024-10-24] MEDS: ASPIR LOW (ENTERIC COATED) 81 MG PO (09:42)
[2024-10-24] MEDS: COLACE PO ×3 (09:42→21:11)
[2024-10-24] MEDS: MIRALAX PO (09:43)
[2024-10-24] MEDS: PROTONIX 40 MG PO ×2 (09:43→21:02)
[2024-10-24] MEDS: OSCAL 500 + D PO ×3 (09:46→21:16)
--- NOTE | 2024-10-24 10:24 | W.PN.PUL3 ---
Today's Communication / Plan
-
VBG adequate, proBNP elevated
Would resume on home lasix
She was agreeable to repeat lytic trial, IR consult placed
Monitor output next 24 hours, repeat CXR in AM
Assessment
-
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
pain. 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 Patient has been on prednisone since. Patient also has been reporting gradually worsening
shortness of breath over the last few weeks without any cough or wheezing. Patient required supplemental oxygen and additional workup included chest x-ray which was suggestive of large pleural effusion. Of note patient had a similar presentation
in 09/2024 with large left-sided pleural effusion and had IR guided thoracentesis performed and fluid was noted to be exudative. Culture stayed negative and cytology was also negative for any malignancy. She also had paracentesis performed and
cytology was negative for malignant cells. For her abdominal spindle cell carcinoma, patient has a complicating left hydronephrosis for which nephrostomy tube was placed in 08/2024. She follows at [facility] and also locally with [facility].
Patient reports that she was scheduled for debulking surgery but then later the plan was changed to chemotherapy instead. Patient reports having been started on letrozole recently. In view of recurrent enlarging pleural effusion on the left side,
pulmonary consultation was requested for further input. Patient has history of mild intermittent asthma. No prior history of COPD or emphysema.
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
s/p chest tube placement
Acute hypoxic respiratory failure.
Leukocytosis
Hyponatremia, mild
Hypokalemia
Metabolic alkalosis
CKD suspected, creatinine baseline 1.2�1.6
Other medical diagnoses:
Left TMJ pain, concern for inflammation versus dislocation. ENT service on case; s/p course of prednisone 40mg daily (10/16 10/20/2024)
History of spindle cell cancer
Asthma
Hypertension.
H/o GI bleed.
Iron deficiency anemia.
SVT.
Anxiety.
GERD.
Leiomyoma of uterus-status post BSO 2007 2015
Thyroid cancer.
Arthritis.
IBS.
Recent CVA
Appendectomy. Thyroidectomy. Cholecystectomy. Cataract surgery. Bilateral knee replacement. Left ureteral stent. Hernia repair.
Plan
Currently stable on room air
Offers no complaints
MRSA effusion
s/p Thoracentesis 10/19, 900 ml of sanguinous fluid removed. Exudative with LDH 621, concerning for empyema with pH 7.1, glucose less than 30 and 29,000 WBCs with 80% polymorphonuclear cells. Incomplete lung expansion, suspected residual
loculations. MRSA screen positive
IR placed chest tube on 10/20/2024
Pleural fluid Cx positive for MRSA; pleural fluid fungal + AFB cultures show NGTD thus far
Discussed case with IR on 10/21 and given suboptimal lung re-expansion on CXR, believe she would benefit from tpA/dornase --> given to her on 10/21 by IR with increased output thereafter
Output reviewed 1300 mL -> 1375 -> 180 mL thus far
She is willing to retry lytics, IR consult 10/24
Patient was initially started on Zosyn however now on IV vancomycin -ID consulted and defer antibiotics to them
Culture positive on 10/20/2024 with Staph aureus
Lasix as needed in view of pedal edema
Will check proBNP--1850
Prior recent echo reviewed with stable function
She has metabolic alkalosis noted
Will obtain baseline VBG in a.m.-- 7.5/40/147/31/99%
Patient has history of asthma
No current wheezing, not currently on nebs/inhalers
Continue Montelukast
PRN Albuterol
Ascites- Not enough fluid noted for paracentesis on 10/19
Of note ascitic fluid cytology on 09/13/2024 was negative for malignancy
Patient follows up with Dr. Teixeira at [facility] and also locally with [facility]
Complicated by left hydronephrosis s/p nephrostomy tube placement in 08/2024
DVT prophylaxis with subcu heparin.
Data:
CT A/P 10/2024: Stable abdominal and pelvic masses consistent with known spindle cell malignancy. Stable mass effect on the aorta and left kidney. Stable left sided percutaneous nephrostomy tube. No evidence of complication. Moderate abdominopelvic
ascites. Stable. Moderate left pleural effusion. Mildly improved.. Moderate left lower lobe consolidation. This may be atelectasis or developing pneumonia. Stable Moderate fecal material throughout the colon. Increased Mild diverticulosis. Stable
CT Facial bones 10/2024: 1. Moderate anterior and lateral subluxation of the left mandibular condylar head with adjacent high attenuation along the medial side of the mandibular condylar head. Diagnostic possibilities are (1) dislocation of the
left temporomandibular joint meniscus, (2) a crystal arthropathy with adjacent soft tissue calcification, or (3) an inflammatory arthropathy with surrounding synovitis.
2. Moderate left sphenoid sinusitis.
3. Severe discogenic degenerative disease at C4/C5 and C5/C6.
4. Severe right-sided facet joint arthrosis at C3/C4.
5. Previous total thyroidectomy.
ECHO 05/2024: Mild concentric left ventricular hypertrophy. Normal left ventricular chamber size. Normal left ventricular systolic function. Left ventricular ejection fraction is 69% by Escalante's method. Normal diastolic function. Mitral valve
opens normally. Mild to moderate mitral regurgitation. Trileaflet aortic valve. Thickened aortic valve with normal leaflet excursion. Aortic sclerosis without stenosis. Trace aortic insufficiency. Tricuspid valve opens normally. Moderate
tricuspid regurgitation. Estimated pulmonary artery pressure of 35 mmHg, assuming a right atrial pressure of 3 mmHg.
Since echo August 2017, there is no significant change.
Total time spent on this consultation/encounter __50__ minutes which includes review of history, physical exam, medications, laboratory data, personal review of imaging, extensive review of outpatient records, discussion with care team and
respiratory therapy.
Subjective Data
-
Date of Service:
Date of Service: October 24, 2024
Chief Complaint: Pulmonary Follow Up
Subjective:
No new complaints, stable on RA
Output minimal in past 24 hours
Objective Data
Data Reviewed
Vital Signs / I&O / Oxygen:
Vital Signs
Temp Pulse Resp BP Pulse Ox
97.9 F 69 18 95/52 96
10/24/24 07:11 10/24/24 09:41 10/24/24 07:11 10/24/24 09:41 10/24/24 07:11
Intake and Output
10/23/24 10/24/24 10/25/24
06:59 06:59 06:59
Intake Total 360 / 360 920 / 920
Output Total 250 / 250 345 / 345
Balance 110 / 110 575 / 575
SaO2 96
Nasal Cannula flow liters per 2
minute
Physical Exam
General: Respiratory Distress (negative), Pain (left-sided hemithorax with deep breath) and Chills (negative)
HEENT: Normocephalic and Anicteric
Cardiovascular: S1-S2, Regular Rhythm and Peripheral Edema (+2 LE pitting edema b/l)
Respiratory: Wheeze (negative), Crackles (left middle lung field), Rhonchi (negative), Non-Labored Respirations, Stridor (negative), Chest Tube (Left hemithorax on -20 cmH2O suction) and Other (Decreased air entry in the left posterior hemithorax
from base up to middle lung field)
GI: Soft, Non Distended, Non Tender and Normal Bowel Sounds
Neurology: Awake, Alert, Oriented and Tremors (negative)
Skin: Warm, Dry, Cyanosis (negative) and Jaundice (negative)
Labs/Micro/Reports
Lab Data
10/23/24 06:27
10/23/24 06:27
Microbiology
10/20/24 14:25 Pleural Fluid Fungal Culture - Preliminary
Culture in progress.
Positive cultures are reported as soon as detected.
Final report to follow in four to five weeks.
10/20/24 14:25 Pleural Fluid Acid Fast Bacilli Smear - Preliminary
10/20/24 14:25 Pleural Fluid Acid Fast Bacilli Culture - Preliminary
10/20/24 14:25 Pleural Fluid Body Fluid Culture - Final
Staph aureus MRSA
10/20/24 14:25 Pleural Fluid Gram Stain - Final
10/20/24 11:24 Nose MRSA Screen - Final
Staph aureus MRSA
10/19/24 14:48 Pleural Fluid Body Fluid Culture - Final
Staph aureus MRSA
10/19/24 14:48 Pleural Fluid Gram Stain - Final
--- NOTE | 2024-10-24 10:44 | W.PN.ID1 ---
Date of Service
Date of Service: October 24, 2024
Today's Communication
- agree with vancomycin at this time, for eventual deescalation to oral doxycycline 100 mg PO BID to complete a 4 week course 10/21-11/17
- trial of PRN immodium
Assessment / Plan
MRSA Empyema
H/o previous thoracentesis
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
- pathology malignancy negative, heavy inflammation noted
- chest tube management per pulmonary
- agree with IV vancomycin at this time, for eventual deescalation to oral doxycycline 100 mg PO BID to complete a 4 week course 10/21-11/17
- given IBS-D trial of immodium
Chief Complaint
-: Other (MRSA empyema)
Subjective / Review of Systems
reports a history of IBS-D, had cathartics yesterday and today with liquid stool - feels it is typical of her IBS-d
no abdominal pain
output from the tube dropping off
no other events
Vital Signs / Physical Exam
Vital Signs
Vital Signs
Temp Pulse Resp BP Pulse Ox
97.9 F 69 18 95/52 96
10/24/24 07:11 10/24/24 09:41 10/24/24 07:11 10/24/24 09:41 10/24/24 10:25
Physical Exam
Constitutional: No Acute Distress
Cardiovascular: Regular Rate and S1/S2; Negative Murmur or Rub
Pulmonary: Clear and Symmetric; Negative Wheezes or Rales
Gastrointestinal: Soft, Non Tender, Non Distended and Normal Bowel Sounds
Skin: Warm and Dry; Negative Rash or Jaundice
Objective Data
Lab Data
Lab Results
10/23/24 06:27
10/23/24 06:27
PT 15.2 Sec (11.4-14.6) H 10/19/24 10:07
INR 1.15 10/19/24 10:07
APTT 32.7 Sec (23.4-35.0) 10/19/24 10:07
Estimated Creat Clear 40 ml/min 10/23/24 06:27
Total Bilirubin 0.8 mg/dl (0.2-1.3) 10/23/24 06:27
AST 40 U/L (14-36) H 10/23/24 06:27
ALT 19 U/L (0-35) 10/23/24 06:27
Alkaline Phosphatase 96 U/L (38-126) 10/23/24 06:27
Most recent labs reviewed.
Micro Results:
10/20/24 14:25 Fungal Culture - Preliminary
Pleural Fluid Culture in progress.
Positive cultures are reported as soon as detected.
Final report to follow in four to five weeks.
10/20/24 14:25 Acid Fast Bacilli Smear - Preliminary
Pleural Fluid Acid Fast Bacilli Culture - Preliminary
10/20/24 14:25 Body Fluid Culture - Final
Pleural Fluid Staph aureus MRSA
Gram Stain - Final
10/20/24 11:24 MRSA Screen - Final
Nose Staph aureus MRSA
10/19/24 14:48 Body Fluid Culture - Final
Pleural Fluid Staph aureus MRSA
Gram Stain - Final
[2024-10-24 11:22] VITALS: BP 99/50
[2024-10-24] MEDS: IMODIUM 2 MG PO (11:22)
--- NOTE | 2024-10-24 11:49 | W.PN.HOSP.TC ---
Today's Communication/Plan
-
abx per ID
imodium prn
await pulm eval for possible need of repeaet tpa/dnase dosing
Assessment / Plan
Assessment / Plan
Left empyema from MRSA
Possible trapped lung
Acute hypoxic reps insufficiency - resolved
-Chest x-ray with large pleural effusion with associated compressive atelectasis/airspace consolidation
-s/p Thora with drainage of 900 cc serosanguineous fluid. Fluid studies showing pH 7.14 with WBC 29K 80% PMN.
-Pleural fluid culture later reported to be MRSA
-With history of patient malignancy need to rule out any underlying malignancy as well. Await cytopathology report
-Status post IR tPA/DNase infusion and left pleural tube on 10/22.
-Follow-up chest x-ray showing possibility of trapped lung
-Pulmonology considering repeat round of tPA/DNase instillation in left pleura tube
-Chest tube drain output of 135 mL over 24-hour. monitor
-ID following and maintaining on vancomycin for now. Help appreciated.
Left Mandible Subluxation
-Evident prominence and tenderness over the L TMJ area. Improving.
-CT scan done in the ED shows subluxation of the L mandibular head with adjacent high attenuation - ? crystal or inflammatory arthropathy.
-Dr. Norwood unable to get hold of OMFS. ENT evaluated and recommended course of steroid which patient finished. Patient to follow-up in office
Hypocalcemia
Hypomagnesemia
Hypokalemia
- replace as needed
- Patient was treated for HYPERcalcemia in August with IVFs and Pamidronate.
- Since has had HYPOcalcemia requiring supplementation.
- Follow lytes and adjust treatment as needed.
Left Ureteral Obstruction
Hematuria -resolved
- s/p prior ureteral stent. Now with L PCN in place.
- Patient was having some hematuria from left PCN. Status post CT abdomen pelvis and IR guided nephrostomy tube which were normal.
- continue monitoring
Acute on chronic anemia likely multifactorial
-from acute blood loss with hematuria/sanguinous CT tube drainage, anemia of Chronic Disease / Chronic Iron Deficiency
-s/p 1 unit PRBC. Antibody positive on type and screen.
- monitor hbg with PRN transfusion
Spindle Cell Cancer
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
Ascites
- Continue letrozole.
- Ascites presumed malignant though pathology negative on last admission paracentesis. Not much fluid this time for paracentesis
- Follow-up with Oncology after discharge. Patient to follow-up with Dr. Teixeira at [facility]
Prolonged QTc
-EKG reviewed and patient have baseline RBBB with QTc ranging anywhere between 510 to 550 ms
-Lexapro held , avoid QTc prolonging medication as possible
Diarrhea
-from miralax vs abx use related
-low concern for cdiff, imodium PRN started
Hyponatremia
Anxiety
ASCVD / CVA
CKD III
GERD / History of GI Bleeding
History of hypothyroidism
DVT Prophylaxis: Subcut Heparin
Code Status: Full
Anticipated Discharge: > 48 hours
Subjective/Interval History
-
Date of Service: October 24, 2024
denies sob
not on o2
afebrile in night
no other issues
Objective Data
-
Vital Signs:
Vital Signs
Temp Pulse Resp BP Pulse Ox
98.2 F 72 18 99/50 97
10/24/24 11:22 10/24/24 11:22 10/24/24 11:22 10/24/24 11:22 10/24/24 11:22
I&O
10/23/24 10/24/24 10/25/24
06:59 06:59 06:59
Intake Total 360 / 360 920 / 920
Output Total 250 / 250 345 / 345
Balance 110 / 110 575 / 575
Review of Systems
-
Respiratory: Reports No Symptoms
Cardiac: Reports No Symptoms
Abdomen/GI: Reports No Symptoms
Physical Exam
-
General: Comfortable; Negative Respiratory Distress
Respiratory: Clear to Auscultation and Chest Tubes (Left side - sero sanguinous drainage)
Cardiac: Regular Rhythm and S1/S2
GI: Tender and Distended
Neuro: Awake, Alert and Oriented; Negative Tremors
Psych: Calm; Negative Confused
--- NOTE | 2024-10-24 12:02 | CM ---
CM following re: discharge planning.
Reviewed pt's chart, met with pt.
Pt lives with 2SH, 1 step to enter, has 2 supportive children. Pt reports she ambulates with a walker, current with [facility].
Per PT and OT pt has been refusing to participate in therapy sessions.
[facility] has [facility] pt for services.
[facility] discharge instructions fax: [phone]
D/C plan: per pt's strong request, home with [facility] and family support.
CM will follow with discharge plan updates as hospitalization progresses
--- NOTE | 2024-10-24 13:30 | PHA.VAN.FU ---
Vancomycin Assessment / Plan
- Assessment
Renal Function: SCR Decreasing
WBC's are: Trending Down
In the past 24 hrs, patient has been: Afebrile
- Assessment - Therapeutic Drug Monitoring
Random Level: 14.1
Calculated ke: 0.01
Calculated half life (H): 69
Random level 10/23 0527 17.9
Random level 10/24 0516 14.1
- Dosing Plan
Dosing by Level: Re-dose today (Vancomycin 750mg x 1 today.)
- Monitoring Plan
Random Level: 10/26 0600
Will give dose today and repeat random level in 48h due to prolonged half life.
- Follow Up
Pharmacy will continue to follow.
Vancomycin Follow UP
- -
Patient Age: 78
Patient Sex: Female
Vancomycin Day #: 5
Indication: Pulmonary/Respiratory
Requesting Provider: Dr. Norwood / [place]
Pertinent Antimicrobial Allergies:
erythromycin base - vomiting
Height / Weight:
Height 5 ft 5 in
Actual Weight 80.059 kg
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
- Vital Signs / Lab Results
Temp Pulse Resp BP Pulse Ox
98.2 F 72 18 99/50 97
10/24/24 11:22 10/24/24 11:22 10/24/24 11:22 10/24/24 11:22 10/24/24 11:22
Lab Results - Hematology
10/22/24 10/23/24
07:24 06:27
WBC 14.8 H 13.2 H
Lab Results - Chemistry
10/22/24 10/23/24
07:24 06:27
BUN 35 H 34 H
Creatinine 1.3 H 1.2 H
Estimated Creat Clear 37 40
Albumin 2.5 L 2.5 L
Microbiology Results
10/20/24 14:25 Fungal Culture - Preliminary
Pleural Fluid Culture in progress.
Positive cultures are reported as soon as detected.
Final report to follow in four to five weeks.
10/20/24 14:25 Acid Fast Bacilli Smear - Preliminary
Pleural Fluid Acid Fast Bacilli Culture - Preliminary
Therapeutic Drug Monitoring
Random Vancomycin 14.1 ug/ml 10/24/24 06:16
[2024-10-24] MEDS: VANCOCIN 150 IV (13:59)
--- NOTE | 2024-10-24 15:41 | PN.IRAD.UPD ---
Update Note - IRAD
- -
TPA/Dornase instilled into left chest tube per . Patient tolerated well. Tube was clamped and an order to re-open will be entered by . Patient was instructed to turn every 15 mins if able, also d/w RN. Site was cleaned and new
dressing was applied.
[2024-10-24 15:59] VITALS: BP 105/56
[2024-10-24] MEDS: LIPITOR 40 MG PO (17:01)
[2024-10-24] MEDS: SINGULAIR 10 MG PO (17:01)
[2024-10-24 19:10] VITALS: BP 106/56
[2024-10-24 23:28] VITALS: BP 105/59
[2024-10-25] VITALS (7 sets, daily range): BP systolic 93–114; BP diastolic 49–63
[2024-10-25] MEDS: SYNTHROID 200 MCG PO (06:23)
[2024-10-25 06:45] LABS: Hematocrit 22.8 % (37.0-47.0); Hemoglobin 7.6 g/dL (12.0-16.0); Mean Corp Hgb Conc. 33.3 g/dL (33.0-37.0); Mean Corpuscular Volume 88.7 fL (81.0-99.0); Platelet Count 252 10^3/uL (130-400); Red Cell Dist. Width 18.2 % (11.5-14.5)
[2024-10-25 07:24] LABS: Blood Urea Nitrogen 29 mg/dl (7-17); Calcium 6.7 mg/dl (8.4-10.2); Carbon Dioxide 30 mmol/L (22-30); Chloride 97 mmol/L (98-107); Estimated Creatinine Clearance 40 ml/min; Glucose 84 mg/dl (70-99); Potassium 3.7 mmol/L (3.5-5.1); Sodium 132 mmol/L (135-145); eGFR 46.05
--- NOTE | 2024-10-25 08:09 | PTCARENOTE ---
Pt with increasingly bloody output from CT overnight, hgb from 8.2 to 7.6, Ca critically low at 6.7 this AM, made aware. No new orders at this time.
--- NOTE | 2024-10-25 08:34 | PHA.VAN.FU ---
Vancomycin Assessment / Plan
- Assessment
Renal Function: SCR Decreasing
WBC's are: Trending Down
In the past 24 hrs, patient has been: Afebrile
- Dosing Plan
Dosing by Level: Hold off on dosing today
- Monitoring Plan
Random Level: 10/26 at 0600
- Follow Up
Pharmacy will continue to follow.
Vancomycin Follow UP
- -
Patient Age: 78
Patient Sex: Female
Vancomycin Day #: 6
Indication: Pulmonary/Respiratory
Requesting Provider: Dr. Norwood / [place]
Pertinent Antimicrobial Allergies:
erythromycin base - vomiting
Height / Weight:
Height 5 ft 5 in
Actual Weight 80.059 kg
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
- Vital Signs / Lab Results
Temp Pulse Resp BP Pulse Ox
98.0 F 96 18 107/63 98
10/25/24 07:17 10/25/24 07:17 10/25/24 07:17 10/25/24 07:17 10/25/24 07:17
Lab Results - Hematology
10/23/24 10/25/24
06:27 06:02
WBC 13.2 H 15.1 H
Lab Results - Chemistry
10/22/24 10/23/24 10/25/24
07:24 06:27 06:02
BUN 35 H 34 H 29 H
Creatinine 1.3 H 1.2 H 1.2 H
Estimated Creat Clear 37 40 40
Albumin 2.5 L 2.5 L
Microbiology Results
10/20/24 14:25 Fungal Culture - Preliminary
Pleural Fluid Culture in progress.
Positive cultures are reported as soon as detected.
Final report to follow in four to five weeks.
Therapeutic Drug Monitoring
Random Vancomycin 14.1 ug/ml 10/24/24 06:16
[2024-10-25] MEDS: CALCIUM GLUCONATE 100 IV (09:00)
[2024-10-25] MEDS: TYLENOL 1000 MG PO ×3 (09:01→21:38)
[2024-10-25] MEDS: OSCAL 500 + D PO ×2 (09:01→20:38)
[2024-10-25] MEDS: ASPIR LOW (ENTERIC COATED) 81 MG PO (09:01)
[2024-10-25] MEDS: PROTONIX 40 MG PO ×2 (09:01→20:38)
[2024-10-25] MEDS: FEMARA 2.5 MG PO (09:01)
[2024-10-25] MEDS: HEPARIN 5000 UNITS SC ×2 (09:02→20:38)
[2024-10-25] MEDS: LOPRESSOR 25 MG PO (09:02)
[2024-10-25] MEDS: COLACE PO ×2 (09:03→20:38)
[2024-10-25] MEDS: MIRALAX PO (09:03)
--- NOTE | 2024-10-25 09:27 | W.PN.PUL3 ---
Today's Communication / Plan
-
Stable on RA, no new complaints
s/p lytics, output significant overnight
Planning for CT in AM, will add AP due to diarrhea
Assessment
-
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
pain. 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 Patient has been on prednisone since. Patient also has been reporting gradually worsening
shortness of breath over the last few weeks without any cough or wheezing. Patient required supplemental oxygen and additional workup included chest x-ray which was suggestive of large pleural effusion. Of note patient had a similar presentation
in 09/2024 with large left-sided pleural effusion and had IR guided thoracentesis performed and fluid was noted to be exudative. Culture stayed negative and cytology was also negative for any malignancy. She also had paracentesis performed and
cytology was negative for malignant cells. For her abdominal spindle cell carcinoma, patient has a complicating left hydronephrosis for which nephrostomy tube was placed in 08/2024. She follows at [facility] and also locally with [facility].
Patient reports that she was scheduled for debulking surgery but then later the plan was changed to chemotherapy instead. Patient reports having been started on letrozole recently. In view of recurrent enlarging pleural effusion on the left side,
pulmonary consultation was requested for further input. Patient has history of mild intermittent asthma. No prior history of COPD or emphysema.
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
s/p chest tube placement
Acute hypoxic respiratory failure.
Leukocytosis
Hyponatremia, mild
Hypokalemia
Metabolic alkalosis
CKD suspected, creatinine baseline 1.2�1.6
Other medical diagnoses:
Left TMJ pain, concern for inflammation versus dislocation. ENT service on case; s/p course of prednisone 40mg daily (10/16 - 10/20/2024)
History of spindle cell cancer
Asthma
Hypertension.
H/o GI bleed.
Iron deficiency anemia.
SVT.
Anxiety.
GERD.
Leiomyoma of uterus-status post BSO 2007 2015
Thyroid cancer.
Arthritis.
IBS.
Recent CVA
Appendectomy. Thyroidectomy. Cholecystectomy. Cataract surgery. Bilateral knee replacement. Left ureteral stent. Hernia repair.
Plan
Currently stable on room air
Offers no complaints
MRSA effusion
s/p Thoracentesis 10/19, 900 ml of sanguinous fluid removed. Exudative with LDH 621, concerning for empyema with pH 7.1, glucose less than 30 and 29,000 WBCs with 80% polymorphonuclear cells. Incomplete lung expansion, suspected residual
loculations. MRSA screen positive
IR placed chest tube on 10/20/2024
Pleural fluid Cx positive for MRSA; pleural fluid fungal + AFB cultures show NGTD thus far
Discussed case with IR on 10/21 and given suboptimal lung re-expansion on CXR, believe she would benefit from tpA/dornase --> given to her on 10/21 by IR with increased output thereafter
Output reviewed 1300 mL -> 1375 -> 180 mL thus far
She is willing to retry lytics, IR consult 10/24
Output significant overnight
Will obtain CT chest in AM
Diarrhea noted, will add CT AP
Patient was initially started on Zosyn however now on IV vancomycin -ID consulted and defer antibiotics to them
Culture positive on 10/20/2024 with Staph aureus
Lasix as needed in view of pedal edema
Will check proBNP--1850
Prior recent echo reviewed with stable function
She has metabolic alkalosis noted
Will obtain baseline VBG in a.m.-- 7.5/40/147/31/99%
Patient has history of asthma
No current wheezing, not currently on nebs/inhalers
Continue Montelukast
PRN Albuterol
Ascites- Not enough fluid noted for paracentesis on 10/19
Of note ascitic fluid cytology on 09/13/2024 was negative for malignancy
Patient follows up with Dr. Teixeira at [facility] and also locally with [place] [facility]
Complicated by left hydronephrosis s/p nephrostomy tube placement in 08/2024
DVT prophylaxis with subcu heparin.
Data:
CT A/P 10/2024: Stable abdominal and pelvic masses consistent with known spindle cell malignancy. Stable mass effect on the aorta and left kidney. Stable left sided percutaneous nephrostomy tube. No evidence of complication. Moderate abdominopelvic
ascites. Stable. Moderate left pleural effusion. Mildly improved.. Moderate left lower lobe consolidation. This may be atelectasis or developing pneumonia. Stable Moderate fecal material throughout the colon. Increased Mild diverticulosis. Stable
CT Facial bones 10/2024: 1. Moderate anterior and lateral subluxation of the left mandibular condylar head with adjacent high attenuation along the medial side of the mandibular condylar head. Diagnostic possibilities are (1) dislocation of the
left temporomandibular joint meniscus, (2) a crystal arthropathy with adjacent soft tissue calcification, or (3) an inflammatory arthropathy with surrounding synovitis.
2. Moderate left sphenoid sinusitis.
3. Severe discogenic degenerative disease at C4/C5 and C5/C6.
4. Severe right-sided facet joint arthrosis at C3/C4.
5. Previous total thyroidectomy.
ECHO 05/2024: Mild concentric left ventricular hypertrophy. Normal left ventricular chamber size. Normal left ventricular systolic function. Left ventricular ejection fraction is 69% by Escalante's method. Normal diastolic function. Mitral valve
opens normally. Mild to moderate mitral regurgitation. Trileaflet aortic valve. Thickened aortic valve with normal leaflet excursion. Aortic sclerosis without stenosis. Trace aortic insufficiency. Tricuspid valve opens normally. Moderate
tricuspid regurgitation. Estimated pulmonary artery pressure of 35 mmHg, assuming a right atrial pressure of 3 mmHg.
Since echo August 2017, there is no significant change.
Total time spent on this consultation/encounter __50__ minutes which includes review of history, physical exam, medications, laboratory data, personal review of imaging, extensive review of outpatient records, discussion with care team and
respiratory therapy.
Subjective Data
-
Date of Service:
Date of Service: October 25, 2024
Chief Complaint: Pulmonary Follow Up
Subjective:
s/p lytics 10/24 with significant output
stable on RA, no new complaints from respiratory standpoint
she has diarrhea
Objective Data
Data Reviewed
Vital Signs / I&O / Oxygen:
Vital Signs
Temp Pulse Resp BP Pulse Ox
98.0 F 96 18 107/63 98
10/25/24 07:17 10/25/24 09:02 10/25/24 07:17 10/25/24 09:02 10/25/24 07:17
Intake and Output
10/24/24 10/25/24 10/26/24
06:59 06:59 06:59
Intake Total 920 / 920 1380 / 1380
Output Total 345 / 345 1510 / 1510
Balance 575 / 575 -130 / -130
SaO2 98
Nasal Cannula flow liters per 2
minute
Physical Exam
General: Respiratory Distress (negative), Pain (left-sided hemithorax with deep breath) and Chills (negative)
HEENT: Normocephalic and Anicteric
Cardiovascular: S1-S2, Regular Rhythm and Peripheral Edema (+2 LE pitting edema b/l)
Respiratory: Wheeze (negative), Crackles (left middle lung field), Rhonchi (negative), Non-Labored Respirations, Stridor (negative), Chest Tube (Left hemithorax on -20 cmH2O suction) and Other (Decreased air entry in the left posterior hemithorax
from base up to middle lung field)
GI: Soft, Non Distended, Non Tender and Normal Bowel Sounds
Neurology: Awake, Alert, Oriented and Tremors (negative)
Skin: Warm, Dry, Cyanosis (negative) and Jaundice (negative)
Labs/Micro/Reports
Lab Data
10/25/24 06:02
Microbiology
10/20/24 14:25 Pleural Fluid Fungal Culture - Preliminary
Culture in progress.
Positive cultures are reported as soon as detected.
Final report to follow in four to five weeks.
10/20/24 14:25 Pleural Fluid Acid Fast Bacilli Smear - Preliminary
10/20/24 14:25 Pleural Fluid Acid Fast Bacilli Culture - Preliminary
10/20/24 14:25 Pleural Fluid Body Fluid Culture - Final
Staph aureus MRSA
10/20/24 14:25 Pleural Fluid Gram Stain - Final
--- NOTE | 2024-10-25 10:30 | W.PN.ID1 ---
Date of Service
Date of Service: October 25, 2024
Today's Communication
- chest tube management per pulmonary
- continue with IV vancomycin at this time, for eventual deescalation to oral doxycycline 100 mg PO BID to complete a 4 week course 10/21-11/17
Assessment / Plan
MRSA Empyema
H/o previous thoracentesis
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
- chest tube management per pulmonary
- continue with IV vancomycin at this time, for eventual deescalation to oral doxycycline 100 mg PO BID to complete a 4 week course 10/21-11/17
- given IBS-D trial of immodium
Chief Complaint
-: Other (MRSA empyema)
Subjective / Review of Systems
afebrile
bp stable
increased CT output
had another bout of diarrhea this AM- no abdominal tenderness
Vital Signs / Physical Exam
Vital Signs
Vital Signs
Temp Pulse Resp BP Pulse Ox
98.0 F 96 18 107/63 98
10/25/24 07:17 10/25/24 09:02 10/25/24 07:17 10/25/24 09:02 10/25/24 07:17
Physical Exam
Constitutional: No Acute Distress
Cardiovascular: Regular Rate and S1/S2; Negative Murmur or Rub
Pulmonary: Clear and Symmetric; Negative Wheezes or Rales
Gastrointestinal: Soft, Non Tender, Non Distended and Normal Bowel Sounds
Skin: Warm and Dry; Negative Rash or Jaundice
Objective Data
Lab Data
Lab Results
10/25/24 06:02
PT 15.2 Sec (11.4-14.6) H 10/19/24 10:07
INR 1.15 10/19/24 10:07
APTT 32.7 Sec (23.4-35.0) 10/19/24 10:07
Estimated Creat Clear 40 ml/min 10/25/24 06:02
Total Bilirubin 0.8 mg/dl (0.2-1.3) 10/23/24 06:27
AST 40 U/L (14-36) H 10/23/24 06:27
ALT 19 U/L (0-35) 10/23/24 06:27
Alkaline Phosphatase 96 U/L (38-126) 10/23/24 06:27
Most recent labs reviewed.
Micro Results:
10/20/24 14:25 Fungal Culture - Preliminary
Pleural Fluid Culture in progress.
Positive cultures are reported as soon as detected.
Final report to follow in four to five weeks.
10/20/24 14:25 Acid Fast Bacilli Smear - Preliminary
Pleural Fluid Acid Fast Bacilli Culture - Preliminary
10/20/24 14:25 Body Fluid Culture - Final
Pleural Fluid Staph aureus MRSA
Gram Stain - Final
10/20/24 11:24 MRSA Screen - Final
Nose Staph aureus MRSA
10/19/24 14:48 Body Fluid Culture - Final
Pleural Fluid Staph aureus MRSA
Gram Stain - Final
[2024-10-25] MEDS: IMODIUM 2 MG PO (11:01)
--- NOTE | 2024-10-25 11:57 | W.PN.HOSP.TC ---
Today's Communication/Plan
-
see note
Assessment / Plan
Assessment / Plan
Left empyema from MRSA
Possible trapped lung
Acute hypoxic reps insufficiency - resolved
-Chest x-ray with large pleural effusion with associated compressive atelectasis/airspace consolidation
-s/p Thora with drainage of 900 cc serosanguineous fluid. Fluid studies showing pH 7.14 with WBC 29K 80% PMN.
-Pleural fluid culture later reported to be MRSA. Cytopath neg for malignancy
-Status post IR tPA/DNase infusion and left pleural tube on 10/22 and on 10/24
-Follow-up chest x-ray showing possibility of trapped lung
-Chest tube drain output of 1185 mL over 24-hour.
-F/u repeat CT c/a/p
-ID following and maintaining on vancomycin for now. Help appreciated.
Left Mandible Subluxation
-Evident prominence and tenderness over the L TMJ area. Improving.
-CT scan done in the ED shows subluxation of the L mandibular head with adjacent high attenuation - ? crystal or inflammatory arthropathy.
-Dr. Norwood unable to get hold of [facility]. ENT evaluated and recommended course of steroid which patient finished. Patient to follow-up in office
Hypocalcemia
Hypomagnesemia
Hypokalemia
- replace as needed
- Patient was treated for HYPERcalcemia in August with IVFs and Pamidronate.
- Since has had HYPOcalcemia requiring supplementation.
- Follow lytes and adjust treatment as needed.
Left Ureteral Obstruction
Hematuria -resolved
- s/p prior ureteral stent. Now with L PCN in place.
- Patient was having some hematuria from left PCN. Status post CT abdomen pelvis and IR guided nephrostomy tube which were normal.
- continue monitoring
Acute on chronic anemia likely multifactorial
-from acute blood loss with hematuria/sanguinous CT tube drainage, anemia of Chronic Disease / Chronic Iron Deficiency
-s/p 1 unit PRBC. Antibody positive on type and screen.
-Hbg down to 7.6 today with increased sanguinous drainage from left CT tube post TPA/Dornase infusion
Spindle Cell Cancer
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
Ascites
- Continue letrozole.
- Ascites presumed malignant though pathology negative on last admission paracentesis. Not much fluid this time for paracentesis
- Follow-up with Oncology after discharge. Patient to follow-up with Dr. Teixeira at [facility]
Prolonged QTc
-EKG reviewed and patient have baseline RBBB with QTc ranging anywhere between 510 to 550 ms
-Lexapro held , avoid QTc prolonging medication as possible
Diarrhea
-from miralax vs abx use related
-low concern for cdiff, imodium PRN started
Hyponatremia
Anxiety
ASCVD / CVA
CKD III
GERD / History of GI Bleeding
History of hypothyroidism
DVT Prophylaxis: Subcut Heparin
Code Status: Full
Care plan discussed with ID/pulmonology
Total time spent : 54 mins
Anticipated Discharge: > 48 hours
Subjective/Interval History
-
Date of Service: October 25, 2024
continues to have diarrhea
Not on oxygen
Denies chest pain/shortness of breath
No other issues reported
Objective Data
-
Labs:
Laboratory Results
10/25/24 10/25/24
06:02 15:00
WBC 15.1 H Pending
Hgb 7.6 L Pending
Hct 22.8 L Pending
Plt Count 252 Pending
Sodium 132 L
Potassium 3.7
Chloride 97 L
Carbon Dioxide 30
BUN 29 H
Creatinine 1.2 H
Glucose 84
Calcium 6.7 L*
Vital Signs:
Vital Signs
Temp Pulse Resp BP Pulse Ox
98.0 F 96 18 107/63 98
10/25/24 07:17 10/25/24 09:02 10/25/24 07:17 10/25/24 09:02 10/25/24 08:35
I&O
10/24/24 10/25/24 10/26/24
06:59 06:59 06:59
Intake Total 920 / 920 1380 / 1380
Output Total 345 / 345 1510 / 1510
Balance 575 / 575 -130 / -130
Review of Systems
-
Respiratory: Reports No Symptoms
Cardiac: Reports No Symptoms
Abdomen/GI: Reports No Symptoms
Physical Exam
-
General: Comfortable; Negative Respiratory Distress
Respiratory: Clear to Auscultation and Chest Tubes (Left side - sero sanguinous drainage)
Cardiac: Regular Rhythm and S1/S2
GI: Tender and Distended
Neuro: Awake, Alert and Oriented; Negative Tremors
Psych: Calm; Negative Confused
--- NOTE | 2024-10-25 15:23 | CM ---
CM following re: discharge planning.
Reviewed pt's chart, met with pt.
Pt lives with 2SH, 1 step to enter, has 2 supportive children. Pt reports she ambulates with a walker, current with [facility].
Per PT and OT pt has been refusing to participate in therapy sessions.
[facility] has accepted the pt for services.
[facility] discharge instructions fax: [phone]
D/C plan: per pt's strong request, home with [facility] and family support.
CM will follow with discharge plan updates as hospitalization progresses
[2024-10-25] MEDS: LIPITOR 40 MG PO (17:11)
[2024-10-25] MEDS: SINGULAIR 10 MG PO (17:12)
--- NOTE | 2024-10-25 17:54 | PTCARENOTE ---
This RN went in to check chest tube output, dressing saturated with serosanguinous drainage. Reached out to shahab FORTUNE with pictures, advised to just reinforce dressing to skin and be careful with turning. Dressing changed, tubing free of kinks and
clots, 70mL of output from today. Bevel of chest tube within proper window set at -20. No new orders at this time.
[2024-10-25 19:36] LABS: Hematocrit 24.5 % (37.0-47.0); Hemoglobin 7.9 g/dL (12.0-16.0); Mean Corp Hgb Conc. 32.2 g/dL (33.0-37.0); Mean Corpuscular Volume 91.8 fL (81.0-99.0); Platelet Count 256 10^3/uL (130-400); Red Cell Dist. Width 19.1 % (11.5-14.5)
[2024-10-25] MEDS: LOPRESSOR PO (20:39)
[2024-10-25] MEDS: TYLENOL PO (21:37)
[2024-10-26] VITALS (8 sets, daily range): BP systolic 78–102; BP diastolic 47–57
[2024-10-26] MEDS: SYNTHROID 200 MCG PO (06:20)
--- NOTE | 2024-10-26 08:35 | W.PN.ID1 ---
Date of Service
Date of Service: October 26, 2024
Today's Communication
- chest tube management per pulmonary - output remains high
- continue with IV vancomycin at this time, for eventual deescalation to oral doxycycline 100 mg PO BID to complete a 4 week course
Assessment / Plan
MRSA Empyema
H/o previous thoracentesis
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
- chest tube management per pulmonary - output remains high
- continue with IV vancomycin at this time, for eventual deescalation to oral doxycycline 100 mg PO BID to complete a 4 week course 10/21-11/17
- given IBS-D trial of immodium - improved
Chief Complaint
-: Other (MRSA empyema)
Subjective / Review of Systems
afebrile
bp stable
Vital Signs / Physical Exam
Vital Signs
Vital Signs
Temp Pulse Resp BP Pulse Ox
97.8 F 78 16 99/53 97
10/26/24 07:42 10/26/24 07:42 10/26/24 07:42 10/26/24 07:42 10/26/24 07:42
Physical Exam
Constitutional: No Acute Distress
Cardiovascular: Regular Rate and S1/S2; Negative Murmur or Rub
Pulmonary: Clear and Symmetric; Negative Wheezes or Rales
Gastrointestinal: Soft, Non Tender, Non Distended and Normal Bowel Sounds
Skin: Warm and Dry; Negative Rash or Jaundice
Objective Data
Lab Data
PT 15.2 Sec (11.4-14.6) H 10/19/24 10:07
INR 1.15 10/19/24 10:07
APTT 32.7 Sec (23.4-35.0) 10/19/24 10:07
Estimated Creat Clear 40 ml/min 10/25/24 06:02
Total Bilirubin 0.8 mg/dl (0.2-1.3) 10/23/24 06:27
AST 40 U/L (14-36) H 10/23/24 06:27
ALT 19 U/L (0-35) 10/23/24 06:27
Alkaline Phosphatase 96 U/L (38-126) 10/23/24 06:27
Most recent labs reviewed.
Micro Results:
10/20/24 14:25 Fungal Culture - Preliminary
Pleural Fluid Culture in progress.
Positive cultures are reported as soon as detected.
Final report to follow in four to five weeks.
10/20/24 14:25 Acid Fast Bacilli Smear - Preliminary
Pleural Fluid Acid Fast Bacilli Culture - Preliminary
10/20/24 14:25 Body Fluid Culture - Final
Pleural Fluid Staph aureus MRSA
Gram Stain - Final
10/20/24 11:24 MRSA Screen - Final
Nose Staph aureus MRSA
10/19/24 14:48 Body Fluid Culture - Final
Pleural Fluid Staph aureus MRSA
Gram Stain - Final
[2024-10-26] MEDS: ASPIR LOW (ENTERIC COATED) 81 MG PO (08:47)
[2024-10-26] MEDS: FEMARA 2.5 MG PO (08:47)
[2024-10-26] MEDS: PROTONIX 40 MG PO ×2 (08:47→21:10)
[2024-10-26] MEDS: MIRALAX PO (08:48)
[2024-10-26] MEDS: TYLENOL 1000 MG PO (08:48)
[2024-10-26] MEDS: LOPRESSOR PO ×2 (08:48→20:10)
[2024-10-26] MEDS: OSCAL 500 + D PO ×2 (08:48→20:10)
[2024-10-26] MEDS: COLACE PO ×2 (08:49→20:10)
[2024-10-26] MEDS: HEPARIN 5000 UNITS SC ×2 (08:49→20:10)
--- NOTE | 2024-10-26 09:13 | W.PN.PUL3 ---
Today's Communication / Plan
-
CT chest reviewed, improved--can d/c chest tube, IR consult placed
Has remains stable on RA otherwise, no new complaints
Cont IV abx
Can likely assess for d/c per team following tube removal
Assessment
-
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
pain. 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 Patient has been on prednisone since. Patient also has been reporting gradually worsening
shortness of breath over the last few weeks without any cough or wheezing. Patient required supplemental oxygen and additional workup included chest x-ray which was suggestive of large pleural effusion. Of note patient had a similar presentation
in 09/2024 with large left-sided pleural effusion and had IR guided thoracentesis performed and fluid was noted to be exudative. Culture stayed negative and cytology was also negative for any malignancy. She also had paracentesis performed and
cytology was negative for malignant cells. For her abdominal spindle cell carcinoma, patient has a complicating left hydronephrosis for which nephrostomy tube was placed in 08/2024. She follows at [facility] and also locally with [facility].
Patient reports that she was scheduled for debulking surgery but then later the plan was changed to chemotherapy instead. Patient reports having been started on letrozole recently. In view of recurrent enlarging pleural effusion on the left side,
pulmonary consultation was requested for further input. Patient has history of mild intermittent asthma. No prior history of COPD or emphysema.
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
s/p chest tube placement
Acute hypoxic respiratory failure.
Leukocytosis
Hyponatremia, mild
Hypokalemia
Metabolic alkalosis
CKD suspected, creatinine baseline 1.2�1.6
Other medical diagnoses:
Left TMJ pain, concern for inflammation versus dislocation. ENT service on case; s/p course of prednisone 40mg daily (10/16 - 10/20/2024)
History of spindle cell cancer
Asthma
Hypertension.
H/o GI bleed.
Iron deficiency anemia.
SVT.
Anxiety.
GERD.
Leiomyoma of uterus-status post BSO 2007 2015
Thyroid cancer.
Arthritis.
IBS.
Recent CVA
Appendectomy. Thyroidectomy. Cholecystectomy. Cataract surgery. Bilateral knee replacement. Left ureteral stent. Hernia repair.
Plan
Currently stable on room air
Offers no complaints
MRSA effusion
s/p Thoracentesis 10/19, 900 ml of sanguinous fluid removed. Exudative with LDH 621, concerning for empyema with pH 7.1, glucose less than 30 and 29,000 WBCs with 80% polymorphonuclear cells. Incomplete lung expansion, suspected residual
loculations. MRSA screen positive
IR placed chest tube on 10/20/2024
Pleural fluid Cx positive for MRSA; pleural fluid fungal + AFB cultures show NGTD thus far
Discussed case with IR on 10/21 and given suboptimal lung re-expansion on CXR, believe she would benefit from tpA/dornase --> given to her on 10/21 by IR with increased output thereafter
Output reviewed 1300 mL -> 1375 -> 180 mL thus far
She is willing to retry lytics, IR consult 10/24
Output significant overnight
Will obtain CT chest in AM--appears mostly resolved
Will consult to d/c chest tube today
Diarrhea noted, will add CT AP--colitis/mild noted
Defer to team for further management
Patient was initially started on Zosyn however now on IV vancomycin -ID consulted and defer antibiotics to them
Culture positive on 10/20/2024 with Staph aureus
Lasix as needed in view of pedal edema
Will check proBNP--1850
Prior recent echo reviewed with stable function
She has metabolic alkalosis noted
Will obtain baseline VBG in a.m.-- 7.5/40/147/31/99%
Patient has history of asthma
No current wheezing, not currently on nebs/inhalers
Continue Montelukast
PRN Albuterol
Ascites- Not enough fluid noted for paracentesis on 10/19
Of note ascitic fluid cytology on 09/13/2024 was negative for malignancy
Patient follows up with Dr. Teixeira at [facility] and also locally with [facility]
Complicated by left hydronephrosis s/p nephrostomy tube placement in 08/2024
DVT prophylaxis with subcu heparin.
Data:
CT A/P 10/2024: Stable abdominal and pelvic masses consistent with known spindle cell malignancy. Stable mass effect on the aorta and left kidney. Stable left sided percutaneous nephrostomy tube. No evidence of complication. Moderate abdominopelvic
ascites. Stable. Moderate left pleural effusion. Mildly improved.. Moderate left lower lobe consolidation. This may be atelectasis or developing pneumonia. Stable Moderate fecal material throughout the colon. Increased Mild diverticulosis. Stable
CT Facial bones 10/2024: 1. Moderate anterior and lateral subluxation of the left mandibular condylar head with adjacent high attenuation along the medial side of the mandibular condylar head. Diagnostic possibilities are (1) dislocation of the
left temporomandibular joint meniscus, (2) a crystal arthropathy with adjacent soft tissue calcification, or (3) an inflammatory arthropathy with surrounding synovitis.
2. Moderate left sphenoid sinusitis.
3. Severe discogenic degenerative disease at C4/C5 and C5/C6.
4. Severe right-sided facet joint arthrosis at C3/C4.
5. Previous total thyroidectomy.
ECHO 05/2024: Mild concentric left ventricular hypertrophy. Normal left ventricular chamber size. Normal left ventricular systolic function. Left ventricular ejection fraction is 69% by Escalante's method. Normal diastolic function. Mitral valve
opens normally. Mild to moderate mitral regurgitation. Trileaflet aortic valve. Thickened aortic valve with normal leaflet excursion. Aortic sclerosis without stenosis. Trace aortic insufficiency. Tricuspid valve opens normally. Moderate
tricuspid regurgitation. Estimated pulmonary artery pressure of 35 mmHg, assuming a right atrial pressure of 3 mmHg.
Since echo August 2017, there is no significant change.
Total time spent on this consultation/encounter __45__ minutes which includes review of history, physical exam, medications, laboratory data, personal review of imaging, extensive review of outpatient records, discussion with care team and
respiratory therapy.
Subjective Data
-
Date of Service:
Date of Service: October 26, 2024
Chief Complaint: Pulmonary Follow Up
Subjective:
Sitting in chair, remains stable on RA
Objective Data
Data Reviewed
Vital Signs / I&O / Oxygen:
Vital Signs
Temp Pulse Resp BP Pulse Ox
97.8 F 78 16 99/53 97
10/26/24 07:42 10/26/24 07:42 10/26/24 07:42 10/26/24 08:48 10/26/24 07:42
Intake and Output
10/25/24 10/26/24 10/27/24
06:59 06:59 06:59
Intake Total 1380 / 1380 990 / 990 480 / 480
Output Total 1510 / 1510 210 / 210
Balance -130 / -130 780 / 780 480 / 480
SaO2 97
Nasal Cannula flow liters per 2
minute
Physical Exam
General: Respiratory Distress (negative), Pain (left-sided hemithorax with deep breath) and Chills (negative)
HEENT: Normocephalic and Anicteric
Cardiovascular: S1-S2, Regular Rhythm and Peripheral Edema (+2 LE pitting edema b/l)
Respiratory: Wheeze (negative), Crackles (left middle lung field), Rhonchi (negative), Non-Labored Respirations, Stridor (negative), Chest Tube (Left hemithorax on -20 cmH2O suction) and Other (Decreased air entry in the left posterior hemithorax
from base up to middle lung field)
GI: Soft, Non Distended, Non Tender and Normal Bowel Sounds
Neurology: Awake, Alert, Oriented and Tremors (negative)
Skin: Warm, Dry, Cyanosis (negative) and Jaundice (negative)
Labs/Micro/Reports
Microbiology
10/20/24 14:25 Pleural Fluid Fungal Culture - Preliminary
Culture in progress.
Positive cultures are reported as soon as detected.
Final report to follow in four to five weeks.
--- NOTE | 2024-10-26 10:01 | PTCARENOTE ---
Pt with only 5mL output from chest tube overnight, deep red clotted portion of line leading into skin at entrance of CT site. No respiratory complaints/distress. 96% RA. No changed in lung sounds. Pulm made aware.
[2024-10-26 12:14] LABS: Hematocrit 23.9 % (37.0-47.0); Hemoglobin 7.7 g/dL (12.0-16.0); Mean Corp Hgb Conc. 32.2 g/dL (33.0-37.0); Mean Corpuscular Volume 90.2 fL (81.0-99.0); Platelet Count 273 10^3/uL (130-400); Red Cell Dist. Width 19.1 % (11.5-14.5)
[2024-10-26 12:26] LABS: Blood Urea Nitrogen 27 mg/dl (7-17); Calcium 7.2 mg/dl (8.4-10.2); Carbon Dioxide 31 mmol/L (22-30); Chloride 97 mmol/L (98-107); Estimated Creatinine Clearance 43 ml/min; Glucose 92 mg/dl (70-99); Potassium 3.9 mmol/L (3.5-5.1); Sodium 132 mmol/L (135-145); eGFR 51.11
--- NOTE | 2024-10-26 12:30 | PTCARENOTE ---
Pt refusing 1100 vitals.
--- NOTE | 2024-10-26 12:43 | W.PN.HOSP.TC ---
Today's Communication/Plan
-
CT tube removal today
maintain on iv abx
possible d/c in 48hrs
Assessment / Plan
Assessment / Plan
Left empyema from MRSA
Possible trapped lung
Acute hypoxic reps insufficiency - resolved
-Chest x-ray with large pleural effusion with associated compressive atelectasis/airspace consolidation
-s/p Thora with drainage of 900 cc serosanguineous fluid. Fluid studies showing pH 7.14 with WBC 29K 80% PMN.
-Pleural fluid culture later reported to be MRSA. Cytopath neg for malignancy
-Status post IR tPA/DNase infusion and left pleural tube on 10/22 and on 10/24
-Follow-up chest x-ray showing possibility of trapped lung
-ID following and maintaining on vancomycin for now. Help appreciated.
-CT chest/a/p images and report reviewed - significant improvement in the pleural fluid collection
-Pulmo recommended for CT tube to be removed
Left Mandible Subluxation
-Evident prominence and tenderness over the L TMJ area. Improving.
-CT scan done in the ED shows subluxation of the L mandibular head with adjacent high attenuation - ? crystal or inflammatory arthropathy.
-Dr. Norwood unable to get hold of [facility]. ENT evaluated and recommended course of steroid which patient finished. Patient to follow-up in office
Hypocalcemia
Hypomagnesemia
Hypokalemia
- replace as needed
- Patient was treated for HYPERcalcemia in August with IVFs and Pamidronate.
- Since has had HYPOcalcemia requiring supplementation.
- Follow lytes and adjust treatment as needed.
Left Ureteral Obstruction
Hematuria -resolved
- s/p prior ureteral stent. Now with L PCN in place.
- Patient was having some hematuria from left PCN. Status post CT abdomen pelvis and IR guided nephrostomy tube which were normal.
- continue monitoring
Acute on chronic anemia likely multifactorial
-from acute blood loss with hematuria/sanguinous CT tube drainage, anemia of Chronic Disease / Chronic Iron Deficiency
-s/p 1 unit PRBC. Antibody positive on type and screen.
-Hbg stabilized around 7.7, monitor.
Spindle Cell Cancer
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
Ascites
- Continue letrozole.
- Ascites presumed malignant though pathology negative on last admission paracentesis. Not much fluid this time for paracentesis
- Follow-up with Oncology after discharge. Patient to follow-up with Dr. Teixeira at [facility]
Prolonged QTc
-EKG reviewed and patient have baseline RBBB with QTc ranging anywhere between 510 to 550 ms
-Lexapro held , avoid QTc prolonging medication as possible
Diarrhea
-from miralax vs abx use related
-low concern for cdiff, imodium PRN started
Hyponatremia
Anxiety
ASCVD / CVA
CKD III
GERD / History of GI Bleeding
History of hypothyroidism
DVT Prophylaxis: Subcut Heparin
Code Status: Full
Anticipated Discharge: 24 - 48 hours
Subjective/Interval History
-
Date of Service: October 26, 2024
feeling better
no chest pain/shortness breath
afebrile in night
Objective Data
-
Labs:
Laboratory Results
10/26/24
11:53
WBC 13.6 H
Hgb 7.7 L
Hct 23.9 L
Plt Count 273
Sodium 132 L
Potassium 3.9
Chloride 97 L
Carbon Dioxide 31 H
BUN 27 H
Creatinine 1.1 H
Glucose 92
Calcium 7.2 L
Vital Signs:
Vital Signs
Temp Pulse Resp BP Pulse Ox
97.8 F 78 16 99/53 97
10/26/24 07:42 10/26/24 07:42 10/26/24 07:42 10/26/24 08:48 10/26/24 08:31
I&O
10/25/24 10/26/24 10/27/24
06:59 06:59 06:59
Intake Total 1380 / 1380 990 / 990 480 / 480
Output Total 1510 / 1510 210 / 210
Balance -130 / -130 780 / 780 480 / 480
Review of Systems
-
Respiratory: Reports No Symptoms
Cardiac: Reports No Symptoms
Abdomen/GI: Reports No Symptoms
Physical Exam
-
General: Comfortable; Negative Respiratory Distress
Respiratory: Clear to Auscultation and Chest Tubes (Left side - sero sanguinous drainage)
Cardiac: Regular Rhythm and S1/S2
GI: Tender and Distended
Neuro: Awake, Alert and Oriented; Negative Tremors
Psych: Calm; Negative Confused
--- NOTE | 2024-10-26 13:26 | CM ---
CM following re: discharge planning.
Reviewed pt's chart, met with pt.
Pt lives with 2SH, 1 step to enter, has 2 supportive children. Pt reports she ambulates with a walker, current with [facility].
Per PT and OT pt has been refusing to participate in therapy sessions.
[facility] has accepted the pt for services.
[facility] discharge instructions fax: [phone]
D/C plan: per pt's strong request, home with [facility] and family support.
CM will follow with discharge plan updates as hospitalization progresse
--- NOTE | 2024-10-26 15:11 | W.PN.UPDATE ---
Update Note
Progress Note Update
INTERVENTIONAL RADIOLOGY PROGRESS NOTE
Pt is s/p chest tube placement with TPA/Dornase instillation x 2 with good result/output. Therefore the left pleural drainage catheter was removed intact and without difficulty. A Vaseline/mepilex dressing was placed. Pt to leave this dressing in
place x 2 days.
--- NOTE | 2024-10-26 15:21 | PHA.VAN.FU ---
Vancomycin Assessment / Plan
- Assessment
Renal Function: SCR Decreasing
WBC's are: Stable
In the past 24 hrs, patient has been: Afebrile
- Assessment - Therapeutic Drug Monitoring
Random Level: 11.9 drawn ~46 hours after last vancomycin dose of 750mg
- Dosing Plan
Dosing by Level: Re-dose today (Vancomycin 1000mg)
- Monitoring Plan
Random Level: 10/27 06
- Follow Up
Pharmacy will continue to follow.
Vancomycin Follow UP
- -
Patient Age: 78
Patient Sex: Female
Vancomycin Day #: 7
Indication: Pulmonary/Respiratory
Requesting Provider: Dr. Norwood / [place]
Pertinent Antimicrobial Allergies:
erythromycin base - vomiting
Height / Weight:
Height 5 ft 5 in
Actual Weight 80.059 kg
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
- Vital Signs / Lab Results
Temp Pulse Resp BP Pulse Ox
97.8 F 78 16 99/53 97
10/26/24 07:42 10/26/24 07:42 10/26/24 07:42 10/26/24 08:48 10/26/24 08:31
Lab Results - Hematology
10/25/24 10/25/24 10/26/24
06:02 19:29 11:53
WBC 15.1 H 12.4 H 13.6 H
Lab Results - Chemistry
10/25/24 10/26/24
06:02 11:53
BUN 29 H 27 H
Creatinine 1.2 H 1.1 H
Estimated Creat Clear 40 43
Therapeutic Drug Monitoring
Random Vancomycin 11.9 ug/ml 10/26/24 11:53
[2024-10-26] MEDS: XANAX 0.25 MG PO (16:46)
[2024-10-26] MEDS: VANCOCIN 200 IV (17:09)
[2024-10-26] MEDS: TYLENOL PO ×2 (17:13→20:10)
[2024-10-26] MEDS: LIPITOR PO (17:13)
[2024-10-26] MEDS: SINGULAIR PO (17:13)
--- NOTE | 2024-10-26 18:30 | PTCARENOTE ---
Pt with c/o SOB, tachy into 150s, pt hyperventilating and saying she cannot breathe. Pt given PRN xanax, lung sounds with no change, minimal drainage on dressing for CT site. Pt actively deep breathing and seemingly much more calm now. 100% on RA.
HR now 98.
[2024-10-26] MEDS: MORPHINE SULFATE 4 MG IV (20:09)
--- NOTE | 2024-10-26 21:56 | PTCARENOTE ---
ax3 anxious sinus 80's bp soft- Lopressor held per parameters- 100% on room air- lungs diminished bilaterally pt felt pain at chest tube site with some shortness of breath- morphine given- Xanax given earlier-pt still anxious - support given was oob
to b[facility] for large formed bm and urine- refuses many of her meds see mar-
[2024-10-27] VITALS (12 sets, daily range): BP systolic 94–103; BP diastolic 47–58
[2024-10-27] MEDS: SYNTHROID 200 MCG PO (05:03)
[2024-10-27] MEDS: COLACE PO (08:33)
[2024-10-27] MEDS: MIRALAX PO (08:34)
[2024-10-27] MEDS: IMODIUM 2 MG PO (08:37)
[2024-10-27] MEDS: FEMARA 2.5 MG PO (08:37)
[2024-10-27] MEDS: ASPIR LOW (ENTERIC COATED) 81 MG PO (08:37)
[2024-10-27] MEDS: OSCAL 500 + D PO ×3 (08:37→21:06)
[2024-10-27] MEDS: XANAX 0.25 MG PO (08:41)
[2024-10-27] MEDS: HEPARIN 5000 UNITS SC (08:41)
[2024-10-27] MEDS: PROTONIX 40 MG PO ×2 (08:41→20:53)
[2024-10-27] MEDS: TYLENOL 1000 MG PO ×3 (08:41→23:02)
[2024-10-27] MEDS: LOPRESSOR PO ×2 (08:50→20:15)
[2024-10-27 08:59] LABS: Hematocrit 16.4 % (37.0-47.0); Hemoglobin 5.4 g/dL (12.0-16.0); Mean Corp Hgb Conc. 32.9 g/dL (33.0-37.0); Mean Corpuscular Volume 87.7 fL (81.0-99.0); Platelet Count 235 10^3/uL (130-400); Red Cell Dist. Width 18.7 % (11.5-14.5)
--- NOTE | 2024-10-27 09:09 | W.PN.PUL3 ---
Today's Communication / Plan
-
Chest tube is discontinued 10/26, she is doing well
Repeat chest x-ray this a.m. appears improved
She has new acute on chronic anemia, unclear etiology as she has no overt signs of bleeding
Consideration for oncology eval of this is related to her underlying malignancy, will defer to care team for further management
She otherwise has no new respiratory complaints, doing well on room air
We will sign off at this time, please call with questions
Assessment
-
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
pain. 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 Patient has been on prednisone since. Patient also has been reporting gradually worsening
shortness of breath over the last few weeks without any cough or wheezing. Patient required supplemental oxygen and additional workup included chest x-ray which was suggestive of large pleural effusion. Of note patient had a similar presentation
in 09/2024 with large left-sided pleural effusion and had IR guided thoracentesis performed and fluid was noted to be exudative. Culture stayed negative and cytology was also negative for any malignancy. She also had paracentesis performed and
cytology was negative for malignant cells. For her abdominal spindle cell carcinoma, patient has a complicating left hydronephrosis for which nephrostomy tube was placed in 08/2024. She follows at [facility] and also locally with [facility].
Patient reports that she was scheduled for debulking surgery but then later the plan was changed to chemotherapy instead. Patient reports having been started on letrozole recently. In view of recurrent enlarging pleural effusion on the left side,
pulmonary consultation was requested for further input. Patient has history of mild intermittent asthma. No prior history of COPD or emphysema.
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
s/p chest tube placement
Acute hypoxic respiratory failure.
Leukocytosis
Hyponatremia, mild
Hypokalemia
Metabolic alkalosis
CKD suspected, creatinine baseline 1.2�1.6
Acute on chronic anemia, unclear etiology
Other medical diagnoses:
Left TMJ pain, concern for inflammation versus dislocation. ENT service on case; s/p course of prednisone 40mg daily (10/16 - 10/20/2024)
History of spindle cell cancer
Asthma
Hypertension.
H/o GI bleed.
Iron deficiency anemia.
SVT.
Anxiety.
GERD.
Leiomyoma of uterus-status post BSO 2007 2015
Thyroid cancer.
Arthritis.
IBS.
Recent CVA
Appendectomy. Thyroidectomy. Cholecystectomy. Cataract surgery. Bilateral knee replacement. Left ureteral stent. Hernia repair.
Plan
Currently stable on room air
Offers no complaints
MRSA effusion
s/p Thoracentesis 10/19, 900 ml of sanguinous fluid removed. Exudative with LDH 621, concerning for empyema with pH 7.1, glucose less than 30 and 29,000 WBCs with 80% polymorphonuclear cells. Incomplete lung expansion, suspected residual
loculations. MRSA screen positive
IR placed chest tube on 10/20/2024
Pleural fluid Cx positive for MRSA; pleural fluid fungal + AFB cultures show NGTD thus far
Discussed case with IR on 10/21 and given suboptimal lung re-expansion on CXR, believe she would benefit from tpA/dornase --> given to her on 10/21 by IR with increased output thereafter
Output reviewed 1300 mL -> 1375 -> 180 mL thus far
She is willing to retry lytics, IR consult 10/24
Output significant overnight
CT chest 10/26--appears mostly resolved
Chest tube discontinued 10/26
Diarrhea noted, will add CT AP--colitis/mild noted
Patient with new anemia, hemoglobin dropped from 7-5
No overt signs of bleeding
Repeat CBC pending
May need consultation with oncology given metastatic disease
Defer to team for further management
Patient was initially started on Zosyn however now on IV vancomycin -ID consulted and defer antibiotics to them
Culture positive on 10/20/2024 with Staph aureus
Lasix as needed in view of pedal edema
Will check proBNP--1850
Prior recent echo reviewed with stable function
She has metabolic alkalosis noted
Baseline VBG in a.m.-- 7.5/40/147/31/99%
Patient has history of asthma
No current wheezing, not currently on nebs/inhalers
Continue Montelukast
PRN Albuterol
Ascites- Not enough fluid noted for paracentesis on 10/19
Of note ascitic fluid cytology on 09/13/2024 was negative for malignancy
Patient follows up with Dr. Teixeira at [facility] and also locally with [facility]
Complicated by left hydronephrosis s/p nephrostomy tube placement in 08/2024
DVT prophylaxis with subcu heparin.
Data:
CT A/P 10/2024: Stable abdominal and pelvic masses consistent with known spindle cell malignancy. Stable mass effect on the aorta and left kidney. Stable left sided percutaneous nephrostomy tube. No evidence of complication. Moderate abdominopelvic
ascites. Stable. Moderate left pleural effusion. Mildly improved.. Moderate left lower lobe consolidation. This may be atelectasis or developing pneumonia. Stable Moderate fecal material throughout the colon. Increased Mild diverticulosis. Stable
CT Facial bones 10/2024: 1. Moderate anterior and lateral subluxation of the left mandibular condylar head with adjacent high attenuation along the medial side of the mandibular condylar head. Diagnostic possibilities are (1) dislocation of the
left temporomandibular joint meniscus, (2) a crystal arthropathy with adjacent soft tissue calcification, or (3) an inflammatory arthropathy with surrounding synovitis.
2. Moderate left sphenoid sinusitis.
3. Severe discogenic degenerative disease at C4/C5 and C5/C6.
4. Severe right-sided facet joint arthrosis at C3/C4.
5. Previous total thyroidectomy.
ECHO 05/2024: Mild concentric left ventricular hypertrophy. Normal left ventricular chamber size. Normal left ventricular systolic function. Left ventricular ejection fraction is 69% by Escalante's method. Normal diastolic function. Mitral valve
opens normally. Mild to moderate mitral regurgitation. Trileaflet aortic valve. Thickened aortic valve with normal leaflet excursion. Aortic sclerosis without stenosis. Trace aortic insufficiency. Tricuspid valve opens normally. Moderate
tricuspid regurgitation. Estimated pulmonary artery pressure of 35 mmHg, assuming a right atrial pressure of 3 mmHg.
Since echo August 2017, there is no significant change.
Total time spent on this consultation/encounter __45__ minutes which includes review of history, physical exam, medications, laboratory data, personal review of imaging, extensive review of outpatient records, discussion with care team and
respiratory therapy.
Subjective Data
-
Date of Service:
Date of Service: October 27, 2024
Chief Complaint: Pulmonary Follow Up
Subjective:
Doing well, stable on room air
No new complaints
Chest tube removed yesterday without incident
Objective Data
Data Reviewed
Vital Signs / I&O / Oxygen:
Vital Signs
Temp Pulse Resp BP Pulse Ox
97.5 F 96 20 102/49 98
10/27/24 07:34 10/27/24 08:50 10/27/24 07:34 10/27/24 08:50 10/27/24 07:34
Intake and Output
10/26/24 10/27/24 10/28/24
06:59 06:59 06:59
Intake Total 990 / 990 1080 / 1080
Output Total 210 / 210
Balance 780 / 780 1080 / 1080
SaO2 98
Nasal Cannula flow liters per 2
minute
Physical Exam
General: Respiratory Distress (negative), Pain (left-sided hemithorax with deep breath) and Chills (negative)
HEENT: Normocephalic and Anicteric
Cardiovascular: S1-S2, Regular Rhythm and Peripheral Edema (+2 LE pitting edema b/l)
Respiratory: Wheeze (negative), Crackles (left middle lung field), Rhonchi (negative), Non-Labored Respirations, Stridor (negative), Chest Tube (Left hemithorax on -20 cmH2O suction) and Other (Decreased air entry in the left posterior hemithorax
from base up to middle lung field)
GI: Soft, Non Distended, Non Tender and Normal Bowel Sounds
Neurology: Awake, Alert, Oriented and Tremors (negative)
Skin: Warm, Dry, Cyanosis (negative) and Jaundice (negative)
Labs/Micro/Reports
Lab Data
10/27/24 08:15
Microbiology
10/20/24 14:25 Pleural Fluid Fungal Culture - Preliminary
Culture in progress.
Positive cultures are reported as soon as detected.
Final report to follow in four to five weeks.
--- NOTE | 2024-10-27 09:40 | W.PN.ID1 ---
Date of Service
Date of Service: October 27, 2024
Today's Communication
See below.
Assessment / Plan
MRSA Empyema
Leukocytosis trending up
H/o previous thoracentesis
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
- chest tube management per pulmonary - chest tube removed 10/26.
- continue with IV vancomycin at this time, for eventual deescalation to oral doxycycline 100 mg PO BID to complete a 4 week course 10/21-11/17
- Significant increase WBC
No diarrhea. Stool formed
Note IBS-D on trial of immodium
Monitor WBC. If continues to trend up, consider dc Imodium and check stool for C. diff.
Chief Complaint
-: Other (MRSA empyema)
Subjective / Review of Systems
Chest tube was removed yesterday. No pain. No cough. No diarrhea.
Vital Signs / Physical Exam
Vital Signs
Vital Signs
Temp Pulse Resp BP Pulse Ox
97.5 F 96 20 102/49 98
10/27/24 07:34 10/27/24 08:50 10/27/24 07:34 10/27/24 08:50 10/27/24 07:34
Physical Exam
Constitutional: No Acute Distress and Chronically Ill
Cardiovascular: Regular Rate, S1/S2, Murmur and Rub
Pulmonary: Other (Decreased BS left base)
Gastrointestinal: Soft, Non Tender, Distended (chronic from malignancy) and Normal Bowel Sounds
Genito-Urinary: Clear Urine (Left Perc neph)
Extremities: Edema (2+ BLE)
Neurological: AO x 3
Physical Exam:
10/26/24 CT chest: Left chest tube in place with marked improvement of previous fusion; minimal residual left pleural effusion. Mild lobular pleural thickening. No pneumothorax. Subtle patchy interstitial and groundglass opacity in the right apex has
developed. This could represent hypoinflation versus nonspecific subtle pneumonitis.
Objective Data
Lab Data
PT 15.2 Sec (11.4-14.6) H 10/19/24 10:07
INR 1.15 10/19/24 10:07
APTT 32.7 Sec (23.4-35.0) 10/19/24 10:07
Estimated Creat Clear 43 ml/min 10/26/24 11:53
Total Bilirubin 0.8 mg/dl (0.2-1.3) 10/23/24 06:27
AST 40 U/L (14-36) H 10/23/24 06:27
ALT 19 U/L (0-35) 10/23/24 06:27
Alkaline Phosphatase 96 U/L (38-126) 10/23/24 06:27
Most recent labs reviewed.
Micro Results:
10/20/24 14:25 Fungal Culture - Preliminary
Pleural Fluid Culture in progress.
Positive cultures are reported as soon as detected.
Final report to follow in four to five weeks.
10/20/24 14:25 Acid Fast Bacilli Smear - Preliminary
Pleural Fluid Acid Fast Bacilli Culture - Preliminary
10/20/24 14:25 Body Fluid Culture - Final
Pleural Fluid Staph aureus MRSA
Gram Stain - Final
10/20/24 11:24 MRSA Screen - Final
Nose Staph aureus MRSA
10/19/24 14:48 Body Fluid Culture - Final
Pleural Fluid Staph aureus MRSA
Gram Stain - Final
[2024-10-27 10:01] LABS: Blood Urea Nitrogen 31 mg/dl (7-17); Calcium 6.8 mg/dl (8.4-10.2); Carbon Dioxide 25 mmol/L (22-30); Chloride 97 mmol/L (98-107); Estimated Creatinine Clearance 34 ml/min; Glucose 108 mg/dl (70-99); Potassium 4.4 mmol/L (3.5-5.1); Sodium 129 mmol/L (135-145); eGFR 38.27
--- NOTE | 2024-10-27 10:34 | PHA.VAN.FU ---
Vancomycin Assessment / Plan
- Assessment
Renal Function: SCR Increasing
WBC's are: Trending Up
In the past 24 hrs, patient has been: Afebrile
- Assessment - Therapeutic Drug Monitoring
Random Level: 17.7 DRAWN ~15 HRS AFTER PREVIOUS 1000MG DOSE
- Dosing Plan
Dosing by Level: Hold off on dosing today (IN SETTING OF DION)
- Monitoring Plan
Random Level: 10/28 @0600
- Follow Up
Pharmacy will continue to follow.
Vancomycin Follow UP
- -
Patient Age: 78
Patient Sex: Female
Vancomycin Day #: 8
Indication: Pulmonary/Respiratory
Requesting Provider: Dr. Norwood / [place]
Pertinent Antimicrobial Allergies:
erythromycin base - vomiting
Height / Weight:
Height 5 ft 5 in
Actual Weight 80.059 kg
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
- Vital Signs / Lab Results
Temp Pulse Resp BP Pulse Ox
97.5 F 96 20 102/49 98
10/27/24 07:34 10/27/24 08:50 10/27/24 07:34 10/27/24 08:50 10/27/24 07:34
Lab Results - Hematology
10/25/24 10/25/24 10/26/24
06:02 19:29 11:53
WBC 15.1 H 12.4 H 13.6 H
10/27/24
08:15
WBC 21.6 H
Lab Results - Chemistry
10/25/24 10/26/24 10/27/24
06:02 11:53 08:15
BUN 29 H 27 H 31 H
Creatinine 1.2 H 1.1 H 1.4 H
Estimated Creat Clear 40 43 34
Therapeutic Drug Monitoring
Random Vancomycin 17.7 ug/ml 10/27/24 08:15
[2024-10-27 10:37] LABS: Hematocrit 17.1 % (37.0-47.0); Hemoglobin 5.7 g/dL (12.0-16.0); Mean Corp Hgb Conc. 33.3 g/dL (33.0-37.0); Mean Corpuscular Volume 90.0 fL (81.0-99.0); Platelet Count 261 10^3/uL (130-400); Red Cell Dist. Width 18.7 % (11.5-14.5)
--- NOTE | 2024-10-27 11:09 | CM ---
CM following re: discharge planning.
Reviewed pt's chart, met with pt.
Per chart review chest tube removed 10/26, plan to switch antibiotics to PO, continue supportive care.
Pt lives with 2SH, 1 step to enter, has 2 supportive children. Pt reports she ambulates with a walker, current with [facility].
[facility] has accepted the pt for services.
IMM reviewed, placed on chart, pt has a copy.
[facility] discharge instructions fax: [phone]
D/C plan: per pt's strong request, home with [facility] and family support.
CM will follow with discharge plan updates as hospitalization progresses
--- NOTE | 2024-10-27 11:16 | W.PN.HOSP.TC ---
Today's Communication/Plan
-
see note
Assessment / Plan
Assessment / Plan
Left empyema from MRSA
Possible trapped lung
Acute hypoxic reps insufficiency - resolved
-Chest x-ray with large pleural effusion with associated compressive atelectasis/airspace consolidation
-s/p Thora with drainage of 900 cc serosanguineous fluid. Fluid studies showing pH 7.14 with WBC 29K 80% PMN.
-Pleural fluid culture later reported to be MRSA. Cytopath neg for malignancy
-Status post IR tPA/DNase infusion and left pleural tube on 10/22 and on 10/24
-Follow-up chest x-ray showing possibility of trapped lung
-ID following and maintaining on vancomycin for now. Help appreciated.
-10/26 CT chest/a/p images and report reviewed - significant improvement in the pleural fluid collection
-CT tube removed 10/26
Acute on chronic anemia likely multifactorial
-from acute blood loss with hematuria/sanguinous CT tube drainage, anemia of Chronic Disease / Chronic Iron Deficiency
- Patient was provided 1 unit PRBC earlier in the admission
- Developed new sudden drop in hemoglobin from 7.5-8 to 5.5
- No reported blood in stool. Chest x-ray shows stable findings and no concern of hemothorax.
- 2 units of PRBC ordered
- ASA 81mg/Heparin subq held.
- Check CT abdomen pelvis without contrast again today to rule out any intraperitoneal bleed
Left Mandible Subluxation
-Evident prominence and tenderness over the L TMJ area. Improving.
-CT scan done in the ED shows subluxation of the L mandibular head with adjacent high attenuation - ? crystal or inflammatory arthropathy.
-Dr. Norwood unable to get hold of OMFS. ENT evaluated and recommended course of steroid which patient finished. Patient to follow-up in office
Hypocalcemia
Hypomagnesemia
Hypokalemia
- replace as needed
- Patient was treated for HYPERcalcemia in August with IVFs and Pamidronate.
- Since has had HYPOcalcemia requiring supplementation.
- Follow lytes and adjust treatment as needed.
Hyponatremia
- from ADH excess with blood loss likely
Left Ureteral Obstruction
Hematuria -resolved
- s/p prior ureteral stent. Now with L PCN in place.
- Patient was having some hematuria from left PCN. Status post CT abdomen pelvis and IR guided nephrostomy tube which were normal.
- continue monitoring
Spindle Cell Cancer
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
Ascites
- Continue letrozole.
- Ascites presumed malignant though pathology negative on last admission paracentesis. Not much fluid this time for paracentesis
- Follow-up with Oncology after discharge. Patient to follow-up with Dr. Teixeira at [facility]
Prolonged QTc
-EKG reviewed and patient have baseline RBBB with QTc ranging anywhere between 510 to 550 ms
-Lexapro held , avoid QTc prolonging medication as possible
Diarrhea
-from miralax vs abx use related
-low concern for cdiff, imodium PRN started
Hyponatremia
Anxiety
ASCVD / CVA
CKD III
GERD / History of GI Bleeding
History of hypothyroidism
DVT Prophylaxis: Subcut Heparin
Code Status: Full
Care plan discussed with bilingual manager
Patient at risk of further hemoglobin drop and related complication. Will require to be transferred to IMU/ICU if any signs of vital instability
Total critical care time 45 mins . Total critical care time documented does not include time spent on separately billed procedures or the services of residents, students, nurses or physician assistants. I personally saw and examined the patient. I
have reviewed all diagnostic interpretations and treatment plans as written. I was present for the montoya portions of any procedures performed and the inclusive time noted in any critical care statement. Critical care time includes patient management
by me, time spent at the patients bedside, time to review lab and imaging results, discussing patient care, documentation in the medical record, and time spent with the family or caregiver.
Anticipated Discharge: > 48 hours
Subjective/Interval History
-
Date of Service: October 27, 2024
Patient had episode of dyspnea/chest discomfort overnight
denies of having any blood containing BM
Objective Data
-
Labs:
Laboratory Results
10/27/24 10/27/24
08:15 10:15
WBC 21.6 H 24.1 H
Hgb 5.4 L* D 5.7 L*
Hct 16.4 L* 17.1 L*
Plt Count 235 261
Sodium 129 L
Potassium 4.4
Chloride 97 L
Carbon Dioxide 25
BUN 31 H
Creatinine 1.4 H
Glucose 108 H
Calcium 6.8 L*
Vital Signs:
Vital Signs
Temp Pulse Resp BP Pulse Ox
97.5 F 96 20 102/49 98
10/27/24 07:34 10/27/24 08:50 10/27/24 07:34 10/27/24 08:50 10/27/24 07:34
I&O
10/26/24 10/27/24 10/28/24
06:59 06:59 06:59
Intake Total 990 / 990 1080 / 1080
Output Total 210 / 210
Balance 780 / 780 1080 / 1080
Review of Systems
-
Respiratory: Reports No Symptoms
Cardiac: Reports No Symptoms
Abdomen/GI: Reports No Symptoms
Physical Exam
-
General: Comfortable; Negative Respiratory Distress
Respiratory: Clear to Auscultation and Chest Tubes (Left side - sero sanguinous drainage)
Cardiac: Regular Rhythm and S1/S2
GI: Tender and Distended
Neuro: Awake, Alert and Oriented; Negative Tremors
Psych: Calm; Negative Confused
[2024-10-27] MEDS: LIPITOR 40 MG PO (17:01)
[2024-10-27] MEDS: SINGULAIR 10 MG PO (17:01)
--- NOTE | 2024-10-27 22:13 | PTCARENOTE ---
Pt. complaining of burning while blood transfusion in progress. VAT RN notified. Awaiting IV placement.
[2024-10-28] VITALS (7 sets, daily range): BP systolic 97–114; BP diastolic 48–62
[2024-10-28 04:44] LABS: Hematocrit 21.7 % (37.0-47.0); Hemoglobin 7.3 g/dL (12.0-16.0); Mean Corp Hgb Conc. 33.6 g/dL (33.0-37.0); Mean Corpuscular Volume 88.6 fL (81.0-99.0); Nucleated Red Blood Cells % 0.8 %; Platelet Count 212 10^3/uL (130-400); Red Cell Dist. Width 16.2 % (11.5-14.5)
[2024-10-28] MEDS: SYNTHROID 200 MCG PO (05:10)
[2024-10-28 09:01] LABS: INR 1.18; PT 15.4 Sec (11.4-14.6)
[2024-10-28] MEDS: FEMARA 2.5 MG PO (09:21)
[2024-10-28] MEDS: OSCAL 500 + D PO ×3 (09:21→20:02)
[2024-10-28] MEDS: PROTONIX 40 MG PO ×2 (09:21→19:59)
[2024-10-28] MEDS: TYLENOL 1000 MG PO ×3 (09:21→22:48)
[2024-10-28] MEDS: LOPRESSOR 25 MG PO (09:23)
[2024-10-28 09:47] LABS: ALT (SGPT) 19 U/L (0-35); AST (SGOT) 29 U/L (14-36); Albumin 2.3 g/dl (3.5-5.0); Alkaline Phosphatase 98 U/L (38-126); Blood Urea Nitrogen 37 mg/dl (7-17); Calcium 6.6 mg/dl (8.4-10.2); Carbon Dioxide 27 mmol/L (22-30); Chloride 95 mmol/L (98-107); Estimated Creatinine Clearance 25 ml/min; Glucose 90 mg/dl (70-99); Potassium 4.0 mmol/L (3.5-5.1); Sodium 127 mmol/L (135-145); Total Protein 4.7 g/dl (6.3-8.2); eGFR 26.53
--- NOTE | 2024-10-28 10:07 | PHA.VAN.FU ---
Vancomycin Assessment / Plan
- Assessment
Renal Function: SCR Increasing
WBC's are: Trending Down
In the past 24 hrs, patient has been: Afebrile
- Assessment - Therapeutic Drug Monitoring
Random Level: 16.6 DRAWN ~35 HR AFTER PREVIOUS 1000MG DOSE
- Dosing Plan
Dosing by Level: Hold off on dosing today
- Monitoring Plan
Random Level: 10/29 @0600
- Follow Up
Pharmacy will continue to follow.
Vancomycin Follow UP
- -
Patient Age: 78
Patient Sex: Female
Vancomycin Day #: 9
Indication: Pulmonary/Respiratory
Requesting Provider: Dr. Norwood / [place]
Pertinent Antimicrobial Allergies:
erythromycin base - vomiting
Height / Weight:
Height 5 ft 5 in
Actual Weight 80.059 kg
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
- Vital Signs / Lab Results
Temp Pulse Resp BP Pulse Ox
97.5 F 94 12 114/62 99
10/28/24 07:10 10/28/24 09:23 10/28/24 07:10 10/28/24 09:23 10/28/24 07:10
Lab Results - Hematology
10/25/24 10/26/24 10/27/24
19:29 11:53 08:15
WBC 12.4 H 13.6 H 21.6 H
10/27/24 10/28/24
10:15 04:17
WBC 24.1 H 21.7 H
Lab Results - Chemistry
10/26/24 10/27/24 10/28/24
11:53 08:15 08:38
BUN 27 H 31 H 37 H
Creatinine 1.1 H 1.4 H 1.9 H
Estimated Creat Clear 43 34 25
Albumin 2.3 L
Therapeutic Drug Monitoring
Random Vancomycin 16.6 ug/ml 10/28/24 04:17
--- NOTE | 2024-10-28 11:04 | W.PN.HOSP.TC ---
Today's Communication/Plan
-
see note
Assessment / Plan
Assessment / Plan
Left empyema from MRSA
Possible trapped lung
Acute hypoxic reps insufficiency - resolved
-Chest x-ray with large pleural effusion with associated compressive atelectasis/airspace consolidation
-s/p Thora with drainage of 900 cc serosanguineous fluid. Fluid studies showing pH 7.14 with WBC 29K 80% PMN.
-Pleural fluid culture later reported to be MRSA. Cytopath neg for malignancy
-Status post IR tPA/DNase infusion and left pleural tube on 10/22 and on 10/24g
-10/26 CT chest/a/p images and report reviewed - significant improvement in the pleural fluid collection
-CT tube removed 10/26
-F/u Cxr after CT tube removal shows stable residual findings.
-WBC uptrended but slow downward tick with 21.5 k today, remains afebrile, continue monitor.
Acute on chronic anemia likely multifactorial
-from acute blood loss with hematuria/sanguinous CT tube drainage, anemia of Chronic Disease / Chronic Iron Deficiency
- Patient was provided 1 unit PRBC earlier in the admission
- 10/27 Developed new sudden drop in hemoglobin from 7.5-8 to 5.5
No reported blood in stool. Chest x-ray shows stable findings and no concern of hemothorax. CT a/p ruled out any
2 units of PRBC ordered - hbg 7.3 today
- ASA 81mg/Heparin subq held.
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
-cr rapidly up-trending to 1.9 today with sebastien of 1.1 48hrs back
-no contrast provided for imaging
-no diuretics or other nephrotoxic medication provided
-SBP < 100 at times and possibly hypoperfusion related
-repeat Echo would be warranted if not improved
-Check Urine eosinophil but less likely will rapid increase in Cr
-Random bladder scan check ordered
-Last potential differential is abd compartment syndrome with large abd mass/ascites vs renal venous outflow obstruction due to external pressure
-Nephrology evaluation requested as well.
Hyponatremia
- from ADH excess with blood loss likely
- Na dropping further down, check urine lytes.
- added fluid restriction 40 0z
- await furhter input from nephro
Left Ureteral Obstruction
Hematuria -resolved
- s/p prior ureteral stent. Now with L PCN in place.
- Patient was having some hematuria from left PCN. Status post CT abdomen pelvis and IR guided nephrostomy tube which were normal.
- continue monitoring
Left Mandible Subluxation
-Evident prominence and tenderness over the L TMJ area. Improving.
-CT scan done in the ED shows subluxation of the L mandibular head with adjacent high attenuation - ? crystal or inflammatory arthropathy.
-Dr. Norwood unable to get hold of OMFS. ENT evaluated and recommended course of steroid which patient finished. Patient to follow-up in office
Hypocalcemia
Hypomagnesemia
Hypokalemia
- replace as needed
- Patient was treated for HYPERcalcemia in August with IVFs and Pamidronate.
- Since has had HYPOcalcemia requiring supplementation.
- Follow lytes and adjust treatment as needed.
Spindle Cell Cancer
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
Ascites
- Continue letrozole.
- Ascites presumed malignant though pathology negative on last admission paracentesis. Not much fluid this time for paracentesis
- Follow-up with Oncology after discharge. Patient to follow-up with Dr. Teixeira at [facility]
Prolonged QTc
-EKG reviewed and patient have baseline RBBB with QTc ranging anywhere between 510 to 550 ms
-Lexapro held , avoid QTc prolonging medication as possible
Diarrhea
-from miralax vs abx use related
-low concern for cdiff, imodium PRN started
Hyponatremia
Anxiety
ASCVD / CVA
GERD / History of GI Bleeding
History of hypothyroidism
DVT Prophylaxis: Subcut Heparin
Code Status: Full
Patient at risk of further hemoglobin drop and related complication. Will require to be transferred to IMU/ICU if any signs of vital instability
Nephrology evaluation requested
Total time spent :54 mins
Anticipated Discharge: 24 - 48 hours
Subjective/Interval History
-
Date of Service: October 28, 2024
no complains overnight
no reported luminal blood loss
remains off o2
Objective Data
-
Labs:
Laboratory Results
10/28/24 10/28/24
04:17 08:38
WBC 21.7 H
Hgb 7.3 L D
Hct 21.7 L
Plt Count 212
PT 15.4 H
INR 1.18
Sodium 127 L
Potassium 4.0
Chloride 95 L
Carbon Dioxide 27
BUN 37 H
Creatinine 1.9 H
Glucose 90
Calcium 6.6 L*
Total Bilirubin 0.9
AST 29
ALT 19
Alkaline Phosphatase 98
Vital Signs:
Vital Signs
Temp Pulse Resp BP Pulse Ox
97.5 F 94 12 114/62 99
10/28/24 07:10 10/28/24 09:23 10/28/24 07:10 10/28/24 09:23 10/28/24 07:10
I&O
10/27/24 10/28/24 10/29/24
06:59 06:59 06:59
Intake Total 1080 / 1080 860 / 860
Balance 1080 / 1080 860 / 860
Review of Systems
-
Respiratory: Reports No Symptoms
Cardiac: Reports No Symptoms
Abdomen/GI: Reports No Symptoms
Physical Exam
-
General: Comfortable; Negative Respiratory Distress
Respiratory: Clear to Auscultation and Chest Tubes (Left side - sero sanguinous drainage)
Cardiac: Regular Rhythm and S1/S2
GI: Tender and Distended
Neuro: Awake, Alert and Oriented; Negative Tremors
Psych: Calm; Negative Confused
--- NOTE | 2024-10-28 11:20 | W.PN.ID1 ---
Date of Service
Date of Service: October 28, 2024
Today's Communication
Continue current antibiotics.
Assessment / Plan
MRSA Empyema
Leukocytosis; stable
H/o previous thoracentesis
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
- chest tube removed 10/26.
- continue with IV vancomycin at this time, for eventual deescalation to oral doxycycline 100 mg PO BID to complete a 4 week course 10/21-11/17
- Significant increase WBC
No diarrhea. Stool formed
Note IBS-D on trial of immodium
Monitor WBC.
Chief Complaint
-: Other (MRSA empyema)
Subjective / Review of Systems
Review of Systems: No Fever, No Chills and No Cough
Vital Signs / Physical Exam
Vital Signs
Vital Signs
Temp Pulse Resp BP Pulse Ox
97.5 F 94 12 114/62 99
10/28/24 07:10 10/28/24 09:23 10/28/24 07:10 10/28/24 09:23 10/28/24 07:10
Physical Exam
Constitutional: No Acute Distress and Chronically Ill
Cardiovascular: Regular Rate, S1/S2, Murmur and Rub
Pulmonary: Other (Decreased BS left base)
Gastrointestinal: Soft, Non Tender, Distended (chronic from malignancy) and Normal Bowel Sounds
Genito-Urinary: Clear Urine (Left Perc neph)
Extremities: Edema (2+ BLE)
Neurological: AO x 3
Objective Data
Lab Data
Lab Results
10/28/24 04:17
10/28/24 08:38
PT 15.4 Sec (11.4-14.6) H 10/28/24 08:38
INR 1.18 10/28/24 08:38
APTT 32.7 Sec (23.4-35.0) 10/19/24 10:07
Estimated Creat Clear 25 ml/min 10/28/24 08:38
Total Bilirubin 0.9 mg/dl (0.2-1.3) 10/28/24 08:38
AST 29 U/L (14-36) 10/28/24 08:38
ALT 19 U/L (0-35) 10/28/24 08:38
Alkaline Phosphatase 98 U/L (38-126) 10/28/24 08:38
Most recent labs reviewed.
Micro Results:
10/20/24 14:25 Fungal Culture - Preliminary
Pleural Fluid Culture in progress.
Positive cultures are reported as soon as detected.
Final report to follow in four to five weeks.
10/20/24 14:25 Acid Fast Bacilli Smear - Preliminary
Pleural Fluid Acid Fast Bacilli Culture - Preliminary
10/20/24 14:25 Body Fluid Culture - Final
Pleural Fluid Staph aureus MRSA
Gram Stain - Final
10/20/24 11:24 MRSA Screen - Final
Nose Staph aureus MRSA
10/19/24 14:48 Body Fluid Culture - Final
Pleural Fluid Staph aureus MRSA
Gram Stain - Final
Imaging:
10/26/24 CT chest: Left chest tube in place with marked improvement of previous fusion; minimal residual left pleural effusion. Mild lobular pleural thickening. No pneumothorax. Subtle patchy interstitial and groundglass opacity in the right apex has
developed. This could represent hypoinflation versus nonspecific subtle pneumonitis.
[2024-10-28] MEDS: CALCIUM GLUCONATE 100 IV (11:27)
[2024-10-28 15:16] LABS: Urine Character Clear (Clear)
[2024-10-28 15:21] LABS: Urine Squamous Cell 26-30 /LPF (Few)
[2024-10-28 15:25] LABS: Urine Red Blood Cell 0-2 /HPF (0-2)
[2024-10-28 15:49] LABS: Body Fluid for Eosinophils No Eosinophils seen
--- NOTE | 2024-10-28 16:14 | W.CON.NEPH ---
Consultation
-
Date/Time Consultation Requested: October 28, 2024 at 9 AM
Date/Time Consultation Performed: October 28, 2024 and 2 PM
Requesting Provider: Newton Christine
Performing Provider: Dr. Marinelli
Reason for Consultation: Acute on chronic kidney disease
Medical History
-
Chief Complaint: Acute on chronic kidney disease
History of Present Illness:
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
Patient was admitted to on multiple recent occasions. 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
Admitted in September for pneumonia / effusion and ascites. She was treated with abx, paracentesis and thoracentesis.
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 Teixeira). She had been scheduled for debulking surgery; however, this was deferred based on recent clinical issues, ascites, etc.
Since admission she was seen by ENT, pulmonary, infectious disease. She is status post chest tube, paracentesis, thoracentesis
She has a left nephrostomy tube since August for left ureteral obstruction.
Renal consultation was requested for acute kidney injury with a creatinine of 1.9 from 1.2 over 48 hours. She had episode of hypotension where her systolic blood pressure was in the 70s and she has been on ongoing antibiotics
Past Medical History
Spindle cell cancer
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
Admitted in September for pneumonia / effusion and ascites.
Spindle cell cancer in May and has been followed at [facility] (Dr. Teixeira).
Social History
Tobacco: Non-Smoker
Alcohol: None
Family History
Family History: Not Pertinent
Allergies / Home Medications
Allergy/AdvReac Type Severity Reaction Status Date / Time
codeine (Codeine) Allergy vomiting Verified 10/15/24 14:31
erythromycin base Allergy vomiting Verified 10/15/24 14:31
(Erythromycin Base)
hydrocodone (Hydrocodone) Allergy swelling, Verified 10/15/24 14:31
vomiting
Iodinated Contrast Media (IV Allergy Swelling Verified 10/15/24 14:31
Dye, Iodine Containing
Contrast )
NSAIDS (Non-Steroidal Allergy INTERNAL Verified 10/15/24 14:31
Anti-Inflamma BLEEDING,
ANEMIA
oxycodone Allergy Vomiting Verified 10/15/24 14:31
�Medication �Instructions �Recorded �Confirmed �Type
montelukast 10 mg tablet 10 mg PO QPM Allergies 03/31/11 10/15/24 History
escitalopram oxalate 20 mg tablet 20 mg PO QPM Mental Health/Anxiety 08/07/24 10/15/24 History
pantoprazole 40 mg tablet,delayed 40 mg PO BID Gastrointestinal Issue 08/07/24 10/15/24 History
release
aspirin 81 mg tablet,delayed 81 mg PO DAILY Blood clot 08/16/24 10/15/24 Rx
release prevention/tx #0 tabs
dicyclomine 10 mg capsule 10 mg PO BID PRN Muscle Spasms #0 08/16/24 10/15/24 Rx
caps
levothyroxine 200 mcg tablet 200 mcg PO DAILY @ 0600 Thyroid 08/16/24 10/15/24 Rx
#30 tabs
atorvastatin 40 mg tablet 40 mg PO QPM High cholesterol 30 08/30/24 10/15/24 Rx
days #30 tabs
loratadine 10 mg tablet 10 mg PO DAILY Allergies 30 days 08/30/24 10/15/24 Rx
#30 tabs
calcium polycarbophil 625 mg 1,250 mg PO BIDPRN PRN constipation 09/12/24 10/15/24 History
tablet (FiberCon)
loperamide 2 mg capsule 2 mg PO DAILYPRN PRN loose stools 09/12/24 10/15/24 History
metoprolol tartrate 50 mg tablet 25 mg PO BID Blood Pressure 09/12/24 10/15/24 History
fluticasone propionate 50 1 spray intranasal DAILY #16 grams 09/15/24 10/15/24 Rx
mcg/actuation nasal
spray,suspension (Flonase Allergy
Relief)
alprazolam 0.25 mg tablet 0.25 mg PO Q8HPRN PRN anxiety 3 09/18/24 10/15/24 Rx
days #12 tabs
furosemide 20 mg tablet 20 mg PO DAILY PRN Fluid 09/18/24 10/15/24 Rx
Retention/Swelling #0 tabs
Lactobac no.2-Bifidobac no.1-S. 1 cap PO DAILY 10/15/24 10/15/24 History
thermo 112.5 billion cell capsule
(Visbiome)
acetaminophen 325 mg tablet 650 mg PO DAILYPRN PRN mild pain 10/15/24 10/15/24 History
cholestyramine (with sugar) 4 gram 1 ea PO QPM 10/15/24 10/15/24 History
powder for susp in a packet
letrozole 2.5 mg tablet 2.5 mg PO DAILY 10/15/24 10/15/24 History
therapeutic multivitamin 1 tab PO QPM 10/15/24 10/15/24 History
tramadol 50 mg tablet 50 mg PO DAILYPRN PRN moderate pain 10/15/24 10/15/24 History
Review of Systems
-
Lower extremity swelling no chest pain or shortness of breath
All other systems: Negative unless noted
Physical Exam
Vital Signs
Vital Signs
Temp Pulse Resp BP Pulse Ox
97.9 F 73 16 102/48 100
10/28/24 15:00 10/28/24 15:00 10/28/24 15:00 10/28/24 15:00 10/28/24 15:00
Lab Results
WBC 21.7 10^3/uL (4.8-10.8) H 10/28/24 04:17
RBC 2.45 10^6/uL (4.20-5.40) L 10/28/24 04:17
Hgb 7.3 g/dL (12.0-16.0) L D 10/28/24 04:17
Hct 21.7 % (37.0-47.0) L 10/28/24 04:17
Plt Count 212 10^3/uL (130-400) 10/28/24 04:17
Sodium 127 mmol/L (135-145) L 10/28/24 08:38
Potassium 4.0 mmol/L (3.5-5.1) 10/28/24 08:38
Chloride 95 mmol/L (98-107) L 10/28/24 08:38
Carbon Dioxide 27 mmol/L (22-30) 10/28/24 08:38
BUN 37 mg/dl (7-17) H 10/28/24 08:38
Creatinine 1.9 mg/dL (0.6-1.0) H 10/28/24 08:38
eGFR 26.53 10/28/24 08:38
Glucose 90 mg/dl (70-99) 10/28/24 08:38
Calcium 6.6 mg/dl (8.4-10.2) L* 10/28/24 08:38
Phosphorus 5.6 mg/dl (2.5-4.5) H 10/16/24 06:43
Gjb-A-Zloaaiaslfy Pept 1850 pg/ml 10/23/24 06:27
Albumin 2.3 g/dl (3.5-5.0) L 10/28/24 08:38
Physical Exam
General no acute distress
HEENT no cephalic atraumatic extraocular muscle intact no scleral icterus no JVD neck supple
lungs coarse rhonchi
heart regular S1-S2 positive
abdomen soft nontender positive bowel sounds
extremities edema +2/3
Neurologically nonfocal alert and oriented x 3
Skin no lesions no abrasions no petechiae
Psych normal affect no bizarre behavior
Data Reviewed
-
Radiology: Image Personally Visualized and interpreted
CT Scan: Image Personally Visualized and interpreted
Labs: Labs Reviewed by me, Discussed with Physician and Discussed with Patient
Assessment/Plan
-
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
Patient was admitted to on multiple recent occasions. 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
Admitted in September for pneumonia / effusion and ascites. She was treated with abx, paracentesis and thoracentesis.
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 Teixeira). She had been scheduled for debulking surgery; however, this was deferred based on recent clinical issues, ascites, etc.
Since admission she was seen by ENT, pulmonary, infectious disease. She is status post chest tube, paracentesis, thoracentesis
She has a left nephrostomy tube since August for left ureteral obstruction.
Renal consultation was requested for acute kidney injury with a creatinine of 1.9 from 1.2 over 48 hours. She had episode of hypotension where her systolic blood pressure was in the 70s and she has been on ongoing antibiotics
Impression.
Acute on chronic kidney disease baseline creatinine 1.4 but is low as of 1.2
Left empyema status post chest tube
Spindle cell carcinoma
Left nephrostomy tube
Hyponatremia
Anemia
Plan.
The patient has multiple comorbidities and etiologies are multifactorial including decreased effective arterial blood volume with third spacing episodes of hypotension, albumin 2.3, antibiotics.
Agree with continuing midodrine
I will give albumin
Urinalysis bland no protein or hematuria though 6-10 white blood cells= will need to consider AIN though unlikely with clinical correlation of hypotension
Check urine eos
Will follow closely
[2024-10-28] MEDS: FLEXBUMIN 50 IV ×2 (17:10→23:16)
[2024-10-28] MEDS: LIPITOR 40 MG PO (17:11)
[2024-10-28] MEDS: SINGULAIR 10 MG PO (17:11)
[2024-10-28] MEDS: LOPRESSOR PO (19:58)
[2024-10-29] VITALS (10 sets, daily range): BP systolic 84–99; BP diastolic 44–54
[2024-10-29] MEDS: FLEXBUMIN 50 IV ×3 (03:48→16:54)
[2024-10-29 03:53] LABS: Hematocrit 19.0 % (37.0-47.0); Hemoglobin 6.6 g/dL (12.0-16.0); Mean Corp Hgb Conc. 34.7 g/dL (33.0-37.0); Mean Corpuscular Volume 89.6 fL (81.0-99.0); Nucleated Red Blood Cells % 0.8 %; Platelet Count 197 10^3/uL (130-400); Red Cell Dist. Width 16.7 % (11.5-14.5)
[2024-10-29 04:23] LABS: Magnesium 1.9 mg/dl (1.6-2.3)
[2024-10-29 04:44] LABS: Calcium 7.1 mg/dl (8.4-10.2); Carbon Dioxide 27 mmol/L (22-30); Chloride 97 mmol/L (98-107); Estimated Creatinine Clearance 28 ml/min; Glucose 86 mg/dl (70-99); Potassium 4.2 mmol/L (3.5-5.1); Sodium 127 mmol/L (135-145); eGFR 30.32
[2024-10-29 05:13] LABS: Blood Urea Nitrogen 41 mg/dl (7-17)
[2024-10-29] MEDS: SYNTHROID 200 MCG PO (06:08)
--- NOTE | 2024-10-29 08:01 | PHA.VAN.FU ---
Vancomycin Assessment / Plan
- Assessment
Renal Function: SCR Decreasing
WBC's are: Trending Down
In the past 24 hrs, patient has been: Afebrile
- Assessment - Therapeutic Drug Monitoring
Random Level: 14 DRAWN ~61 HR AFTER PREVIOUS DOSE
- Dosing Plan
Dosing by Level: Hold off on dosing today
- Monitoring Plan
Random Level: 10/30 @0600
- Follow Up
Pharmacy will continue to follow.
Vancomycin Follow UP
- -
Patient Age: 78
Patient Sex: Female
Vancomycin Day #: 10
Indication: Pulmonary/Respiratory
Requesting Provider: Dr. Norwood / [place]
Pertinent Antimicrobial Allergies:
erythromycin base - vomiting
Height / Weight:
Height 5 ft 5 in
Actual Weight 80.059 kg
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
- Vital Signs / Lab Results
Temp Pulse Resp BP Pulse Ox
97.8 F 70 12 89/47 100
10/29/24 05:06 10/29/24 05:06 10/29/24 05:06 10/29/24 05:06 10/29/24 05:06
Lab Results - Hematology
10/26/24 10/27/24 10/27/24
11:53 08:15 10:15
WBC 13.6 H 21.6 H 24.1 H
10/28/24 10/29/24
04:17 03:41
WBC 21.7 H 16.0 H
Lab Results - Chemistry
10/26/24 10/27/24 10/28/24
11:53 08:15 08:38
BUN 27 H 31 H 37 H
Creatinine 1.1 H 1.4 H 1.9 H
Estimated Creat Clear 43 34 25
Albumin 2.3 L
10/29/24
03:41
BUN 41 H
Creatinine 1.7 H
Estimated Creat Clear 28
Albumin
Lab Results - Urine
10/28/24
15:02
Urine Nitrite Negative
Ur Leukocyte Esterase 1+ A
Urine WBC 6-10 A
Ur Squamous Epith Cells 26-30
Urine Bacteria Moderate A
Therapeutic Drug Monitoring
Random Vancomycin 14.0 ug/ml 10/29/24 03:41
[2024-10-29] MEDS: TYLENOL 1000 MG PO ×3 (08:04→21:16)
[2024-10-29] MEDS: FEMARA 2.5 MG PO (08:04)
[2024-10-29] MEDS: PROTONIX 40 MG PO ×2 (08:04→20:09)
[2024-10-29] MEDS: LOPRESSOR PO ×2 (08:04→20:08)
[2024-10-29] MEDS: OSCAL 500 + D PO ×2 (08:05→20:08)
--- NOTE | 2024-10-29 10:42 | W.PN.ID1 ---
Date of Service
Date of Service: October 29, 2024
Today's Communication
Continue antibiotics
Assessment / Plan
MRSA Empyema
Leukocytosis; improved.
H/o previous thoracentesis
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
- chest tube removed 10/26.
- continue with IV vancomycin at this time, for eventual deescalation to oral doxycycline 100 mg PO BID to complete a 4 week course 10/21-11/17
- Leukocytosis with improvement.
No diarrhea. Stool formed
Note IBS-D on trial of immodium
Monitor WBC.
Chief Complaint
-: Other (MRSA empyema)
Subjective / Review of Systems
Review of Systems: No Fever and No Chills
Vital Signs / Physical Exam
Vital Signs
Vital Signs
Temp Pulse Resp BP Pulse Ox
97.8 F 75 16 84/46 100
10/29/24 07:15 10/29/24 08:04 10/29/24 07:15 10/29/24 08:04 10/29/24 07:15
Physical Exam
Constitutional: No Acute Distress and Chronically Ill
Cardiovascular: Regular Rate, S1/S2, Murmur and Rub
Pulmonary: Other (Decreased BS left base)
Gastrointestinal: Soft, Non Tender, Distended (chronic from malignancy) and Normal Bowel Sounds
Extremities: Edema (2+ BLE)
Neurological: AO x 3
Objective Data
Lab Data
Lab Results
10/29/24 03:41
10/29/24 03:41
PT 15.4 Sec (11.4-14.6) H 10/28/24 08:38
INR 1.18 10/28/24 08:38
APTT 32.7 Sec (23.4-35.0) 10/19/24 10:07
Estimated Creat Clear 28 ml/min 10/29/24 03:41
Total Bilirubin 0.9 mg/dl (0.2-1.3) 10/28/24 08:38
AST 29 U/L (14-36) 10/28/24 08:38
ALT 19 U/L (0-35) 10/28/24 08:38
Alkaline Phosphatase 98 U/L (38-126) 10/28/24 08:38
Most recent labs reviewed.
Micro Results:
10/20/24 14:25 Fungal Culture - Preliminary
Pleural Fluid Culture in progress.
Positive cultures are reported as soon as detected.
Final report to follow in four to five weeks.
10/20/24 14:25 Acid Fast Bacilli Smear - Preliminary
Pleural Fluid Acid Fast Bacilli Culture - Preliminary
10/20/24 14:25 Body Fluid Culture - Final
Pleural Fluid Staph aureus MRSA
Gram Stain - Final
10/20/24 11:24 MRSA Screen - Final
Nose Staph aureus MRSA
10/19/24 14:48 Body Fluid Culture - Final
Pleural Fluid Staph aureus MRSA
Gram Stain - Final
Imaging:
10/26/24 CT chest: Left chest tube in place with marked improvement of previous fusion; minimal residual left pleural effusion. Mild lobular pleural thickening. No pneumothorax. Subtle patchy interstitial and groundglass opacity in the right apex has
developed. This could represent hypoinflation versus nonspecific subtle pneumonitis.
--- NOTE | 2024-10-29 13:02 | W.PN.HOSP.TC ---
Today's Communication/Plan
-
see note
Assessment / Plan
Assessment / Plan
Left empyema from MRSA
Possible trapped lung
Acute hypoxic reps insufficiency - resolved
-Chest x-ray with large pleural effusion with associated compressive atelectasis/airspace consolidation
-s/p Thora with drainage of 900 cc serosanguineous fluid. Fluid studies showing pH 7.14 with WBC 29K 80% PMN.
-Pleural fluid culture later reported to be MRSA. Cytopath neg for malignancy
-Status post IR tPA/DNase infusion and left pleural tube on 10/22 and on
-10/26 CT chest/a/p images and report reviewed - significant improvement in the pleural fluid collection
-CT tube removed 10/26
-F/u Cxr after CT tube removal shows stable residual findings.
-WBC uptrended but slow downward tick with 21.5 k today, remains afebrile, continue monitor.
Acute on chronic anemia likely multifactorial
-from acute blood loss with hematuria/sanguinous CT tube drainage, anemia of Chronic Disease / Chronic Iron Deficiency
- Patient was provided 1 unit PRBC earlier in the admission
- 10/27 Developed new sudden drop in hemoglobin from 7.5-8 to 5.5
No reported blood in stool. Chest x-ray shows stable findings and no concern of hemothorax. CT a/p ruled out any
2 units of PRBC ordered - hbg 7.3 today
- ASA 81mg/Heparin subq held.
- 10/29 hemoglobin again down to 6.6. 1 unit of PRBC ordered. Patient is not having any bowel movement stool check for occult blood ordered. Reason for anemia remains unclear. Normal platelet. Check LDH/fibrinogen/haptoglobin although difficult
to interpret with malignancy
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
-cr rapidly up-trending to 1.9 with sebastien of 1.1 48hrs back. trended down again bit.
-no contrast provided for imaging
-no diuretics or other nephrotoxic medication provided
-SBP < 100 at times and possibly hypoperfusion related. Midodrine dose increased
-repeat Echo would be warranted if not improved
-Urine eosinophils negative
-Not retaining urine on bladder scan.
-Last potential differential is abd compartment syndrome with large abd mass/ascites vs renal venous outflow obstruction due to external pressure
-Nephrology evaluation requested as well.
Hyponatremia
- from ADH excess with blood loss likely
- added fluid restriction 40 0z
- Nephro following
Left Ureteral Obstruction
Hematuria -resolved
- s/p prior ureteral stent. Now with L PCN in place.
- Patient was having some hematuria from left PCN. Status post CT abdomen pelvis and IR guided nephrostomy tube which were normal.
- continue monitoring
Left Mandible Subluxation
-Evident prominence and tenderness over the L TMJ area. Improving.
-CT scan done in the ED shows subluxation of the L mandibular head with adjacent high attenuation - ? crystal or inflammatory arthropathy.
-Dr. Norwood unable to get hold of [facility]. ENT evaluated and recommended course of steroid which patient finished. Patient to follow-up in office
Hypocalcemia
Hypomagnesemia
Hypokalemia
- replace as needed
- Patient was treated for HYPERcalcemia in August with IVFs and Pamidronate.
- Since has had HYPOcalcemia requiring supplementation.
- Follow lytes and adjust treatment as needed.
Spindle Cell Cancer
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
Ascites
- Continue letrozole.
- Ascites presumed malignant though pathology negative on last admission paracentesis. Not much fluid this time for paracentesis
- Follow-up with Oncology after discharge. Patient to follow-up with Dr. Teixeira at [facility]
Prolonged QTc
-EKG reviewed and patient have baseline RBBB with QTc ranging anywhere between 510 to 550 ms
-Lexapro held , avoid QTc prolonging medication as possible
Diarrhea
-from miralax vs abx use related
-low concern for cdiff, imodium PRN started
Hyponatremia
Anxiety
ASCVD / CVA
GERD / History of GI Bleeding
History of hypothyroidism
DVT Prophylaxis: Subcut Heparin
Code Status: Full
Anticipated Discharge: > 48 hours
Subjective/Interval History
-
Date of Service: October 29, 2024
Patient feeling asymptomatic
Blood pressure soft although no dizziness reported
Denies any other issues
Objective Data
-
Labs:
Laboratory Results
10/29/24
03:41
WBC 16.0 H
Hgb 6.6 L*
Hct 19.0 L*
Plt Count 197
Sodium 127 L
Potassium 4.2
Chloride 97 L
Carbon Dioxide 27
BUN 41 H
Creatinine 1.7 H
Glucose 86
Calcium 7.1 L
Vital Signs:
Vital Signs
Temp Pulse Resp BP Pulse Ox
97.5 F 72 18 93/49 99
10/29/24 12:22 10/29/24 12:22 10/29/24 12:22 10/29/24 12:22 10/29/24 11:44
I&O
10/28/24 10/29/24 10/30/24
06:59 06:59 06:59
Intake Total 860 / 860 360 / 360 0 / 0
Output Total 150 / 150
Balance 860 / 860 210 / 210 0 / 0
Review of Systems
-
Respiratory: Reports No Symptoms
Cardiac: Reports No Symptoms
Abdomen/GI: Reports No Symptoms
Physical Exam
-
General: Comfortable; Negative Respiratory Distress
Respiratory: Clear to Auscultation and Chest Tubes (Left side - sero sanguinous drainage)
Cardiac: Regular Rhythm and S1/S2
GI: Nontender and Distended
Neuro: Awake, Alert and Oriented; Negative Tremors
Psych: Calm; Negative Confused
[2024-10-29 13:42] LABS: LDH 452 U/L (120-246)
--- NOTE | 2024-10-29 14:12 | W.PN.NEPH.PH ---
Today's Communication / Plan
-
albumin/prbc
Assessment/Plan
-
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
Patient was admitted to on multiple recent occasions. 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
Admitted in September for pneumonia / effusion and ascites. She was treated with abx, paracentesis and thoracentesis.
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 Teixeira). She had been scheduled for debulking surgery; however, this was deferred based on recent clinical issues, ascites, etc.
Since admission she was seen by ENT, pulmonary, infectious disease. She is status post chest tube, paracentesis, thoracentesis
She has a left nephrostomy tube since August for left ureteral obstruction.
Renal consultation was requested for acute kidney injury with a creatinine of 1.9 from 1.2 over 48 hours. She had episode of hypotension where her systolic blood pressure was in the 70s and she has been on ongoing antibiotics
Impression.
Acute on chronic kidney disease baseline creatinine 1.4 but is low as of 1.2
Left empyema status post chest tube
Spindle cell carcinoma
Left nephrostomy tube
[id number]
Anemia
Plan.
The patient has multiple comorbidities and etiologies are multifactorial including decreased effective arterial blood volume with third spacing episodes of hypotension, albumin 2.3, antibiotics.
Agree with continuing midodrine
cont albumin
Urinalysis bland no protein or hematuria though 6-10 white blood cells= will need to consider AIN though unlikely with clinical correlation of hypotension
Check urine eos
PRBC for hbg 6.6
Will follow closely
cr better today /na stable
-
-
Date of Service: October 29, 2024
CC / HPI / ROS
-
Chief Complaint:
davonte
History of Present Illness:
davonte ckd hemodynamix mediated
Review of Systems:
nonologuirc
no cp
no sob
Labs
-
Labs:
WBC 16.0 10^3/uL (4.8-10.8) H 10/29/24 03:41
RBC 2.12 10^6/uL (4.20-5.40) L 10/29/24 03:41
Hgb 6.6 g/dL (12.0-16.0) L* 10/29/24 03:41
Hct 19.0 % (37.0-47.0) L* 10/29/24 03:41
Plt Count 197 10^3/uL (130-400) 10/29/24 03:41
Sodium 127 mmol/L (135-145) L 10/29/24 03:41
Potassium 4.2 mmol/L (3.5-5.1) 10/29/24 03:41
Chloride 97 mmol/L (98-107) L 10/29/24 03:41
Carbon Dioxide 27 mmol/L (22-30) 10/29/24 03:41
BUN 41 mg/dl (7-17) H 10/29/24 03:41
Creatinine 1.7 mg/dL (0.6-1.0) H 10/29/24 03:41
eGFR 30.32 10/29/24 03:41
Glucose 86 mg/dl (70-99) 10/29/24 03:41
Calcium 7.1 mg/dl (8.4-10.2) L 10/29/24 03:41
Phosphorus 5.6 mg/dl (2.5-4.5) H 10/16/24 06:43
Sxh-I-Ypaiiivgoum Pept 1850 pg/ml 10/23/24 06:27
Albumin 2.3 g/dl (3.5-5.0) L 10/28/24 08:38
Physical Exam
-
Vital Signs:
Vital Signs
Temp Pulse Resp BP Pulse Ox
97.5 F 66 18 106/45 99
10/29/24 12:22 10/29/24 13:25 10/29/24 12:10/29/24 13:10/29/24 11:44
Respiratory:: Bilateral: Coarse
Lung Excursion:: Normal
Abdomen:: Soft
Bowel Sounds:: Normal
Extremity Edema:: +2: Bilateral:
[2024-10-29] MEDS: SINGULAIR 10 MG PO (17:03)
[2024-10-29] MEDS: LIPITOR 40 MG PO (17:03)
[2024-10-29 17:26] LABS: Fibrinogen 215 MG/DL (199-459)
[2024-10-30] VITALS (7 sets, daily range): BP systolic 88–101; BP diastolic 44–60
[2024-10-30] MEDS: SYNTHROID 200 MCG PO (05:22)
[2024-10-30 05:47] LABS: Blood Urea Nitrogen 39 mg/dl (7-17); Calcium 7.0 mg/dl (8.4-10.2); Carbon Dioxide 29 mmol/L (22-30); Chloride 100 mmol/L (98-107); Estimated Creatinine Clearance 26 ml/min; Glucose 73 mg/dl (70-99); Potassium 3.7 mmol/L (3.5-5.1); Sodium 134 mmol/L (135-145); eGFR 28.31
[2024-10-30] MEDS: FEMARA 2.5 MG PO (08:49)
[2024-10-30] MEDS: PROTONIX 40 MG PO ×2 (08:50→20:10)
[2024-10-30] MEDS: TYLENOL 1000 MG PO ×3 (08:50→22:58)
[2024-10-30] MEDS: OSCAL 500 + D PO ×2 (08:51→20:09)
[2024-10-30] MEDS: LOPRESSOR PO ×2 (08:51→20:09)
--- NOTE | 2024-10-30 09:07 | PHA.VAN.FU ---
Vancomycin Assessment / Plan
- Assessment
Renal Function: SCR Increasing (Scr 1.9--> 1.7-->1.8)
WBC's are: Trending Down (Labs from 10/30 pending)
In the past 24 hrs, patient has been: Afebrile
- Assessment - Therapeutic Drug Monitoring
Random Level: 11.9- drawn ~ 84 hours after vancomyin 1000mg
Calculated ke: 0.0065
Calculated half life (H): 107
Pt with prolonged half life based on updated calculations with random levels.
- Dosing Plan
Continue: dose by level
Dosing by Level: Re-dose today (Vancomcyin 1000mg)
- Monitoring Plan
No level(s) ordered at this time: Will repeat random level within the next few days based on renal function.
- Follow Up
Pharmacy will continue to follow.
Vancomycin Follow UP
- -
Patient Age: 78
Patient Sex: Female
Vancomycin Day #: 11
Indication: Pulmonary/Respiratory
Requesting Provider: Dr. Norwood / [place]
Pertinent Antimicrobial Allergies:
erythromycin base - vomiting
Height / Weight:
Height 5 ft 5 in
Actual Weight 80.059 kg
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
- Vital Signs / Lab Results
Temp Pulse Resp BP Pulse Ox
97.6 F 74 16 93/46 96
10/30/24 07:18 10/30/24 08:50 10/30/24 07:18 10/30/24 08:50 10/30/24 07:18
Lab Results - Hematology
10/27/24 10/28/24 10/29/24
10:15 04:17 03:41
WBC 24.1 H 21.7 H 16.0 H
Lab Results - Chemistry
10/27/24 10/28/24 10/29/24
08:15 08:38 03:41
BUN 31 H 37 H 41 H
Creatinine 1.4 H 1.9 H 1.7 H
Estimated Creat Clear 34 25 28
Albumin 2.3 L
10/30/24
04:46
BUN 39 H
Creatinine 1.8 H
Estimated Creat Clear 26
Albumin
Therapeutic Drug Monitoring
Random Vancomycin 11.9 ug/ml 10/30/24 04:46
--- NOTE | 2024-10-30 09:15 | W.PN.NEPH.PH ---
Today's Communication / Plan
-
Follow BMP
As needed albumin and blood products to support blood pressure, remains on midodrine
Assessment/Plan
-
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
Patient was admitted to on multiple recent occasions. 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
Admitted in September for pneumonia / effusion and ascites. She was treated with abx, paracentesis and thoracentesis.
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 Teixeira). She had been scheduled for debulking surgery; however, this was deferred based on recent clinical issues, ascites, etc.
Since admission she was seen by ENT, pulmonary, infectious disease. She is status post chest tube, paracentesis, thoracentesis
She has a left nephrostomy tube since August for left ureteral obstruction.
Renal consultation was requested for acute kidney injury with a creatinine of 1.9 from 1.2 over 48 hours. She had episode of hypotension where her systolic blood pressure was in the 70s and she has been on ongoing antibiotics
Impression.
Acute on chronic kidney disease baseline creatinine 1.4 but is low as of 1.2
Left empyema status post chest tube
Spindle cell carcinoma
Left nephrostomy tube
[id number]
Anemia
Plan.
The patient has multiple comorbidities and etiologies are multifactorial including decreased effective arterial blood volume with third spacing episodes of hypotension, albumin 2.3, antibiotics.
Agree with continuing midodrine, strong prerenal stimulus in play
cont albumin
Urinalysis bland no protein or hematuria though 6-10 white blood cells= will need to consider AIN though unlikely with clinical correlation of hypotension
Check urine eos
PRBC for hbg 6.6
Will follow closely
Sodium stable at 134 creatinine 1.8
-
-
Date of Service: October 30, 2024
CC / HPI / ROS
-
Chief Complaint:
davonte
History of Present Illness:
Hemodynamically labile on midodrine
Creatinine at 1.8
Sodium of 134
Review of Systems:
oliguric left nephrostomy tube
no cp
no sob
Labs
-
Labs:
Sodium 134 mmol/L (135-145) L 10/30/24 04:46
Potassium 3.7 mmol/L (3.5-5.1) 10/30/24 04:46
Chloride 100 mmol/L (98-107) 10/30/24 04:46
Carbon Dioxide 29 mmol/L (22-30) 10/30/24 04:46
BUN 39 mg/dl (7-17) H 10/30/24 04:46
Creatinine 1.8 mg/dL (0.6-1.0) H 10/30/24 04:46
eGFR 28.31 10/30/24 04:46
Glucose 73 mg/dl (70-99) 10/30/24 04:46
Calcium 7.0 mg/dl (8.4-10.2) L 10/30/24 04:46
Phosphorus 5.6 mg/dl (2.5-4.5) H 10/16/24 06:43
Qwr-D-Xvclfpbjpqd Pept 1850 pg/ml 10/23/24 06:27
Albumin 2.3 g/dl (3.5-5.0) L 10/28/24 08:38
Physical Exam
-
Vital Signs:
Vital Signs
Temp Pulse Resp BP Pulse Ox
97.6 F 74 16 93/46 96
10/30/24 07:18 10/30/24 08:50 10/30/24 07:18 10/30/24 08:50 10/30/24 07:18
Respiratory:: Bilateral: Coarse
Lung Excursion:: Normal
Abdomen:: Soft
Bowel Sounds:: Normal
Extremity Edema:: +2: Bilateral:
Other Findings::
left nephrostomy tube
[2024-10-30 09:21] LABS: Hematocrit 24.2 % (37.0-47.0); Hemoglobin 8.1 g/dL (12.0-16.0); Mean Corp Hgb Conc. 33.5 g/dL (33.0-37.0); Mean Corpuscular Volume 93.1 fL (81.0-99.0); Nucleated Red Blood Cells % 0.6 %; Platelet Count 174 10^3/uL (130-400); Red Cell Dist. Width 16.9 % (11.5-14.5)
[2024-10-30] MEDS: VANCOCIN 200 IV (10:25)
--- NOTE | 2024-10-30 10:51 | W.PN.ID1 ---
Date of Service
Date of Service: October 30, 2024
Today's Communication
continue vancomycin
Assessment / Plan
MRSA Empyema
Leukocytosis; improved.
H/o previous thoracentesis
Anemia
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
- chest tube removed 10/26.
- continue with IV vancomycin at this time, currently on midodrine
- for eventual deescalation to oral doxycycline 100 mg PO BID to complete a 4 week course 10/21-11/17
- Leukocytosis with improvement.
No diarrhea. Stool formed
Note IBS-D on trial of immodium
Monitor WBC.
Chief Complaint
-: Other (MRSA empyema)
Subjective / Review of Systems
afebrile
bp stable on midodrine
Vital Signs / Physical Exam
Vital Signs
Vital Signs
Temp Pulse Resp BP Pulse Ox
97.6 F 74 16 93/46 96
10/30/24 07:18 10/30/24 08:50 10/30/24 07:18 10/30/24 08:50 10/30/24 07:18
Physical Exam
Constitutional: No Acute Distress
Cardiovascular: Regular Rate and S1/S2; Negative Murmur or Rub
Pulmonary: Clear and Symmetric; Negative Wheezes or Rales
Gastrointestinal: Soft, Non Tender, Non Distended and Normal Bowel Sounds
Skin: Warm and Dry; Negative Rash or Jaundice
Objective Data
Lab Data
Lab Results
10/30/24 08:46
10/30/24 04:46
PT 15.4 Sec (11.4-14.6) H 10/28/24 08:38
INR 1.18 10/28/24 08:38
APTT 32.7 Sec (23.4-35.0) 10/19/24 10:07
Estimated Creat Clear 26 ml/min 10/30/24 04:46
Total Bilirubin 0.9 mg/dl (0.2-1.3) 10/28/24 08:38
AST 29 U/L (14-36) 10/28/24 08:38
ALT 19 U/L (0-35) 10/28/24 08:38
Alkaline Phosphatase 98 U/L (38-126) 10/28/24 08:38
Most recent labs reviewed.
Micro Results:
10/20/24 14:25 Fungal Culture - Preliminary
Pleural Fluid Culture in progress.
Positive cultures are reported as soon as detected.
Final report to follow in four to five weeks.
10/20/24 14:25 Acid Fast Bacilli Smear - Preliminary
Pleural Fluid Acid Fast Bacilli Culture - Preliminary
10/20/24 14:25 Body Fluid Culture - Final
Pleural Fluid Staph aureus MRSA
Gram Stain - Final
10/20/24 11:24 MRSA Screen - Final
Nose Staph aureus MRSA
10/19/24 14:48 Body Fluid Culture - Final
Pleural Fluid Staph aureus MRSA
Gram Stain - Final
Imaging:
10/26/24 CT chest: Left chest tube in place with marked improvement of previous fusion; minimal residual left pleural effusion. Mild lobular pleural thickening. No pneumothorax. Subtle patchy interstitial and groundglass opacity in the right apex has
developed. This could represent hypoinflation versus nonspecific subtle pneumonitis.
--- NOTE | 2024-10-30 11:08 | W.PN.HOSP.TC ---
Today's Communication/Plan
-
Monitor vitals
See plan
Continue with midodrine
Monitor hemoglobin
Monitor renal function
Heme stool negative
Assessment / Plan
Assessment / Plan
Left empyema from MRSA
Possible trapped lung
Acute hypoxic reps insufficiency - resolved
-Chest x-ray with large pleural effusion with associated compressive atelectasis/airspace consolidation
-s/p Thora with drainage of 900 cc serosanguineous fluid. Fluid studies showing pH 7.14 with WBC 29K 80% PMN.
-Pleural fluid culture later reported to be MRSA. Cytopath neg for malignancy
-Status post IR tPA/DNase infusion and left pleural tube on 10/22 and on 10/24g
-10/26 CT chest/a/p images and report reviewed - significant improvement in the pleural fluid collection
-CT tube removed 10/26
-F/u Cxr after CT tube removal shows stable residual findings.
Monitor leukocytosis
Acute on chronic anemia likely multifactorial
-from acute blood loss with hematuria/sanguinous CT tube drainage, anemia of Chronic Disease / Chronic Iron Deficiency
- Patient was provided 1 unit PRBC earlier in the admission
- 10/27 Developed new sudden drop in hemoglobin from 7.5-8 to 5.5
No reported blood in stool. Chest x-ray shows stable findings and no concern of hemothorax. CT a/p ruled out any
Total required 4 units PRBC this hospitalization
- ASA 81mg/Heparin subq held.
- 10/29 hemoglobin again down to 6.6. 1 unit of PRBC ordered.
Heme test neg, if hemoglobin continues to be low then will consult hematology
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
-no contrast provided for imaging
-no diuretics or other nephrotoxic medication provided
-SBP < 100 at times and possibly hypoperfusion related. Midodrine dose increased
-repeat Echo would be warranted if not improved
-Urine eosinophils negative
-Not retaining urine on bladder scan.
-Last potential differential is abd compartment syndrome with large abd mass/ascites vs renal venous outflow obstruction due to external pressure
-Nephrology following
Hyponatremia
- from ADH excess with blood loss likely
- added fluid restriction 40 0z
- Nephro following
Left Ureteral Obstruction
Hematuria -resolved
- s/p prior ureteral stent. Now with L PCN in place.
- Patient was having some hematuria from left PCN. Status post CT abdomen pelvis and IR guided nephrostomy tube which were normal.
- continue monitoring
Left Mandible Subluxation
-Evident prominence and tenderness over the L TMJ area. Improving.
-CT scan done in the ED shows subluxation of the L mandibular head with adjacent high attenuation - ? crystal or inflammatory arthropathy.
-Dr. Norwood unable to get hold of OMFS. ENT evaluated and recommended course of steroid which patient finished. Patient to follow-up in office
Hypocalcemia
Hypomagnesemia
Hypokalemia
- replace as needed
- Patient was treated for HYPERcalcemia in August with IVFs and Pamidronate.
- Since has had HYPOcalcemia requiring supplementation.
- Follow lytes and adjust treatment as needed.
Spindle Cell Cancer
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
Ascites
- Continue letrozole.
- Ascites presumed malignant though pathology negative on last admission paracentesis. Not much fluid this time for paracentesis
- Follow-up with Oncology after discharge. Patient to follow-up with Dr. Teixeira at [facility]
Prolonged QTc
-EKG reviewed and patient have baseline RBBB with QTc ranging anywhere between 510 to 550 ms
-Lexapro held , avoid QTc prolonging medication as possible
Diarrhea
-from miralax vs abx use related
-low concern for cdiff, imodium PRN started
Hyponatremia
Anxiety
ASCVD / CVA
GERD / History of GI Bleeding
History of hypothyroidism
DVT Prophylaxis: SCD's
Code Status: Full
General: Comfortable; Negative Respiratory Distress
Respiratory: Clear to Auscultation
Cardiac: Regular Rhythm and S1/S2
GI: Nontender and Distended
Neuro: Awake, Alert and Oriented; Negative Tremors
Psych: Calm; Negative Confused
Anticipated Discharge: > 48 hours
Subjective/Interval History
-
Date of Service: October 30, 2024
Denies abdominal pain
Objective Data
-
Labs:
Laboratory Results
10/30/24 10/30/24
04:46 08:46
WBC 16.0 H
Hgb 8.1 L D
Hct 24.2 L
Plt Count 174
Sodium 134 L
Potassium 3.7
Chloride 100
Carbon Dioxide 29
BUN 39 H
Creatinine 1.8 H
Glucose 73
Calcium 7.0 L
Vital Signs:
Vital Signs
Temp Pulse Resp BP Pulse Ox
97.6 F 74 16 93/46 96
10/30/24 07:18 10/30/24 08:50 10/30/24 07:18 10/30/24 08:50 10/30/24 07:18
I&O
10/29/24 10/30/24 10/31/24
06:59 06:59 06:59
Intake Total 360 / 360 1510 / 1510
Output Total 150 / 150 200 / 200
Balance 210 / 210 1310 / 1310
[2024-10-30 11:39] LABS: Magnesium 2.0 mg/dl (1.6-2.3)
--- NOTE | 2024-10-30 14:04 | CM ---
CM following re: discharge planning.
Reviewed pt's chart, met with pt.
Per chart review chest tube removed 10/26, continue with IV vancomycin with a plan to switch antibiotics to PO, continue supportive care.
Pt lives with 2SH, 1 step to enter, has 2 supportive children. Pt reports she ambulates with a walker, current with [facility].
[facility] has accepted the pt for services.
[facility] discharge instructions fax: [phone]
D/C plan: per pt's strong request, home with [facility] and family support.
CM will follow with discharge plan updates as hospitalization progresses
[2024-10-30] MEDS: IMODIUM 2 MG PO ×2 (14:06→20:10)
[2024-10-30] MEDS: SINGULAIR 10 MG PO (17:08)
[2024-10-30] MEDS: LIPITOR 40 MG PO (17:08)
[2024-10-31] VITALS (9 sets, daily range): BP systolic 84–104; BP diastolic 43–57; PULSE 78; O2SAT 100
[2024-10-31] MEDS: SYNTHROID 200 MCG PO (05:38)
[2024-10-31 06:15] LABS: Hematocrit 25.5 % (37.0-47.0); Hemoglobin 8.5 g/dL (12.0-16.0); Mean Corp Hgb Conc. 33.3 g/dL (33.0-37.0); Mean Corpuscular Volume 93.4 fL (81.0-99.0); Nucleated Red Blood Cells % 0.2 %; Platelet Count 171 10^3/uL (130-400); Red Cell Dist. Width 18.0 % (11.5-14.5)
[2024-10-31 06:50] LABS: Blood Urea Nitrogen 36 mg/dl (7-17); Calcium 7.0 mg/dl (8.4-10.2); Carbon Dioxide 30 mmol/L (22-30); Chloride 101 mmol/L (98-107); Estimated Creatinine Clearance 32 ml/min; Glucose 76 mg/dl (70-99); Potassium 3.7 mmol/L (3.5-5.1); Sodium 134 mmol/L (135-145); eGFR 35.23
[2024-10-31] MEDS: LOPRESSOR 25 MG PO (08:01)
[2024-10-31] MEDS: FEMARA 2.5 MG PO (08:01)
[2024-10-31] MEDS: ASPIR LOW (ENTERIC COATED) 81 MG PO (08:01)
[2024-10-31] MEDS: TYLENOL 1000 MG PO ×3 (08:03→22:53)
[2024-10-31] MEDS: PROTONIX 40 MG PO ×2 (08:03→20:48)
[2024-10-31] MEDS: OSCAL 500 + D PO ×2 (08:13→20:52)
--- NOTE | 2024-10-31 08:21 | PHA.VAN.FU ---
Vancomycin Assessment / Plan
- Assessment
Renal Function: SCR Decreasing
WBC's are: Trending Down
In the past 24 hrs, patient has been: Afebrile
Concomitant Antimicrobials: None
- Dosing Plan
Dosing by Level: Hold off on dosing today
Dosing Comments: Last dose 10/30/24 @1025, 1000 mg x1
- Monitoring Plan
No level(s) ordered at this time: Given calculated half-life of 107 hours, will not place level for tomorrow
Monitoring Comments: Check next level ~96 hours post-dose if renal function consistent (11/02)
- Follow Up
Pharmacy will continue to follow.
Vancomycin Follow UP
- -
Patient Age: 78
Patient Sex: Female
Vancomycin Day #: 12
Indication: Pulmonary/Respiratory
Requesting Provider: Dr. Norwood / [place]
Pertinent Antimicrobial Allergies:
erythromycin base - vomiting
Height / Weight:
Height 5 ft 5 in
Actual Weight 80.059 kg
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
- Vital Signs / Lab Results
Temp Pulse Resp BP Pulse Ox
97.7 F 87 16 104/55 96
10/31/24 07:27 10/31/24 08:03 10/31/24 07:27 10/31/24 08:03 10/31/24 07:27
Lab Results - Hematology
10/29/24 10/30/24 10/31/24
03:41 08:46 06:03
WBC 16.0 H 16.0 H 13.8 H
Lab Results - Chemistry
10/28/24 10/29/24 10/30/24
08:38 03:41 04:46
BUN 37 H 41 H 39 H
Creatinine 1.9 H 1.7 H 1.8 H
Estimated Creat Clear 28 26
Albumin 2.3 L
10/31/24
06:03
BUN 36 H
Creatinine 1.5 H
Estimated Creat Clear 32
Albumin
Microbiology Results
10/20/24 14:25 Fungal Culture - Preliminary
Pleural Fluid Culture in progress.
Positive cultures are reported as soon as detected.
Final report to follow in four to five weeks.
Therapeutic Drug Monitoring
Random Vancomycin 11.9 ug/ml 10/30/24 04:46
--- NOTE | 2024-10-31 08:54 | W.PN.NEPH.PH ---
Today's Communication / Plan
-
Maintain fluid restriction
Follow-up labs in a.m.
Assessment/Plan
-
78y F with H significant for spindle cell cancer who presents to ED complaining of L jaw pain
Patient was admitted to on multiple recent occasions. 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
Admitted in September for pneumonia / effusion and ascites. She was treated with abx, paracentesis and thoracentesis.
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 Teixeira). She had been scheduled for debulking surgery; however, this was deferred based on recent clinical issues, ascites, etc.
Since admission she was seen by ENT, pulmonary, infectious disease. She is status post chest tube, paracentesis, thoracentesis
She has a left nephrostomy tube since August for left ureteral obstruction.
Renal consultation was requested for acute kidney injury with a creatinine of 1.9 from 1.2 over 48 hours. She had episode of hypotension where her systolic blood pressure was in the 70s and she has been on ongoing antibiotics
Impression.
Acute on chronic kidney disease baseline creatinine 1.4 but is low as of 1.2
Left empyema status post chest tube
Spindle cell carcinoma
Left nephrostomy tube
[id number]
Anemia
Plan.
The patient has multiple comorbidities and etiologies are multifactorial including decreased effective arterial blood volume with third spacing episodes of hypotension, albumin 2.3, antibiotics.
Agree with continuing midodrine, strong prerenal stimulus in play
lytes and GFR at baseline: Remains on fluid restriction
Urinalysis bland no protein or hematuria though 6-10 white blood cells= will need to consider AIN though unlikely with clinical correlation of hypotension
-
-
Date of Service: October 31, 2024
CC / HPI / ROS
-
Chief Complaint:
davonte
History of Present Illness:
Hemodynamically labile on midodrine
Creatinine at 1.5
Sodium of 134
Review of Systems:
oliguric left nephrostomy tube
no cp
no sob
Labs
-
Labs:
WBC 13.8 10^3/uL (4.8-10.8) H 10/31/24 06:03
RBC 2.73 10^6/uL (4.20-5.40) L 10/31/24 06:03
Hgb 8.5 g/dL (12.0-16.0) L 10/31/24 06:03
Hct 25.5 % (37.0-47.0) L 10/31/24 06:03
Plt Count 171 10^3/uL (130-400) 10/31/24 06:03
Sodium 134 mmol/L (135-145) L 10/31/24 06:03
Potassium 3.7 mmol/L (3.5-5.1) 10/31/24 06:03
Chloride 101 mmol/L (98-107) 10/31/24 06:03
Carbon Dioxide 30 mmol/L (22-30) 10/31/24 06:03
BUN 36 mg/dl (7-17) H 10/31/24 06:03
Creatinine 1.5 mg/dL (0.6-1.0) H 10/31/24 06:03
eGFR 35.23 10/31/24 06:03
Glucose 76 mg/dl (70-99) 10/31/24 06:03
Calcium 7.0 mg/dl (8.4-10.2) L 10/31/24 06:03
Phosphorus 5.6 mg/dl (2.5-4.5) H 10/16/24 06:43
Zqq-R-Zvitppegbnw Pept 1850 pg/ml 10/23/24 06:27
Albumin 2.3 g/dl (3.5-5.0) L 10/28/24 08:38
Physical Exam
-
Vital Signs:
Vital Signs
Temp Pulse Resp BP Pulse Ox
97.7 F 87 16 104/55 96
10/31/24 07:27 10/31/24 08:03 10/31/24 07:27 10/31/24 08:03 10/31/24 07:27
Respiratory:: Bilateral: Coarse
Lung Excursion:: Normal
Abdomen:: Soft
Bowel Sounds:: Normal
Extremity Edema:: +2: Bilateral:
Other Findings::
left nephrostomy tube
--- NOTE | 2024-10-31 11:12 | W.PN.ID1 ---
Date of Service
Date of Service: October 31, 2024
Today's Communication
- chest tube removed 10/26.
- continue with IV vancomycin while inpatient, on discharge will deescalation to oral doxycycline 100 mg PO BID to complete a 4 week course 10/21-11/17
Assessment / Plan
MRSA Empyema
Leukocytosis; improved.
H/o previous thoracentesis
Anemia
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
- chest tube removed 10/26.
- continue with IV vancomycin while inpatient, on discharge will deescalation to oral doxycycline 100 mg PO BID to complete a 4 week course 10/21-11/17
- Leukocytosis with improvement.
No diarrhea. Stool formed
Note IBS-D on trial of immodium
Monitor WBC.
Chief Complaint
-: Other (MRSA empyema)
Subjective / Review of Systems
afebrile
remains on midodrine
cr approaching her baseline
Vital Signs / Physical Exam
Vital Signs
Vital Signs
Temp Pulse Resp BP Pulse Ox
98.1 F 62 18 84/43 99
10/31/24 11:07 10/31/24 11:07 10/31/24 11:07 10/31/24 11:07 10/31/24 11:07
Physical Exam
Constitutional: No Acute Distress
Cardiovascular: Regular Rate and S1/S2; Negative Murmur or Rub
Pulmonary: Clear and Symmetric; Negative Wheezes or Rales
Gastrointestinal: Soft, Non Tender, Non Distended and Normal Bowel Sounds
Skin: Warm and Dry; Negative Rash or Jaundice
Objective Data
Lab Data
Lab Results
10/31/24 06:03
10/31/24 06:03
PT 15.4 Sec (11.4-14.6) H 10/28/24 08:38
INR 1.18 10/28/24 08:38
APTT 32.7 Sec (23.4-35.0) 10/19/24 10:07
Estimated Creat Clear 32 ml/min 10/31/24 06:03
Total Bilirubin 0.9 mg/dl (0.2-1.3) 10/28/24 08:38
AST 29 U/L (14-36) 10/28/24 08:38
ALT 19 U/L (0-35) 10/28/24 08:38
Alkaline Phosphatase 98 U/L (38-126) 10/28/24 08:38
Most recent labs reviewed.
Micro Results:
10/20/24 14:25 Fungal Culture - Preliminary
Pleural Fluid Culture in progress.
Positive cultures are reported as soon as detected.
Final report to follow in four to five weeks.
10/20/24 14:25 Acid Fast Bacilli Smear - Preliminary
Pleural Fluid Acid Fast Bacilli Culture - Preliminary
10/20/24 14:25 Body Fluid Culture - Final
Pleural Fluid Staph aureus MRSA
Gram Stain - Final
10/20/24 11:24 MRSA Screen - Final
Nose Staph aureus MRSA
10/19/24 14:48 Body Fluid Culture - Final
Pleural Fluid Staph aureus MRSA
Gram Stain - Final
Imaging:
10/26/24 CT chest: Left chest tube in place with marked improvement of previous fusion; minimal residual left pleural effusion. Mild lobular pleural thickening. No pneumothorax. Subtle patchy interstitial and groundglass opacity in the right apex has
developed. This could represent hypoinflation versus nonspecific subtle pneumonitis.
--- NOTE | 2024-10-31 11:15 | W.PN.HOSP.TC ---
Today's Communication/Plan
-
Monitor vital signs see plan
Continue antibiotic
Monitor renal function
PT eval again; was refusing to work earlier in the hospitalization however now agrees
Assessment / Plan
Assessment / Plan
Left empyema from MRSA
Possible trapped lung
Acute hypoxic reps insufficiency - resolved
-Chest x-ray with large pleural effusion with associated compressive atelectasis/airspace consolidation
-s/p Thora with drainage of 900 cc serosanguineous fluid. Fluid studies showing pH 7.14 with WBC 29K 80% PMN.
-Pleural fluid culture later reported to be MRSA. Cytopath neg for malignancy. eventual deescalation to oral doxycycline 100 mg PO BID to complete a 4 week course 10/21-11/17
-Status post IR tPA/DNase infusion and left pleural tube on 10/22 and on 10/24g
-10/26 CT chest/a/p images and report reviewed - significant improvement in the pleural fluid collection
-CT tube removed 10/26
-F/u Cxr after CT tube removal shows stable residual findings.
Monitor leukocytosis
Acute on chronic anemia likely multifactorial
-from acute blood loss with hematuria/sanguinous CT tube drainage, anemia of Chronic Disease / Chronic Iron Deficiency
- Patient was provided 1 unit PRBC earlier in the admission
- 10/27 Developed new sudden drop in hemoglobin from 7.5-8 to 5.5
No reported blood in stool. Chest x-ray shows stable findings and no concern of hemothorax. CT a/p ruled out any
Total required 4 units PRBC this hospitalization
- Heparin subq held.
Heme test neg, if hemoglobin continues to be low then will consult hematology
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
-no contrast provided for imaging
-no diuretics or other nephrotoxic medication provided
-SBP < 100 at times and possibly hypoperfusion related. Midodrine dose increased
-repeat Echo would be warranted if not improved
-Urine eosinophils negative
-Not retaining urine on bladder scan.
-Last potential differential is abd compartment syndrome with large abd mass/ascites vs renal venous outflow obstruction due to external pressure
-Nephrology following
Hyponatremia
- from ADH excess with blood loss likely
- added fluid restriction 40 0z
- Nephro following
Left Ureteral Obstruction
Hematuria -resolved
- s/p prior ureteral stent. Now with L PCN in place.
- Patient was having some hematuria from left PCN. Status post CT abdomen pelvis and IR guided nephrostomy tube which were normal.
- continue monitoring
Left Mandible Subluxation
-Evident prominence and tenderness over the L TMJ area. Improving.
-CT scan done in the ED shows subluxation of the L mandibular head with adjacent high attenuation - ? crystal or inflammatory arthropathy.
-Dr. Norwood unable to get hold of OMFS. ENT evaluated and recommended course of steroid which patient finished. Patient to follow-up in office
Hypocalcemia
Hypomagnesemia
Hypokalemia
- replace as needed
- Patient was treated for HYPERcalcemia in August with IVFs and Pamidronate.
- Since has had HYPOcalcemia requiring supplementation.
- Follow lytes and adjust treatment as needed.
Spindle Cell Cancer
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
Ascites
- Continue letrozole.
- Ascites presumed malignant though pathology negative on last admission paracentesis. Not much fluid this time for paracentesis
- Follow-up with Oncology after discharge. Patient to follow-up with Dr. Teixeira at [facility]
Prolonged QTc
-EKG reviewed and patient have baseline RBBB with QTc ranging anywhere between 510 to 550 ms
-Lexapro held , avoid QTc prolonging medication as possible
Diarrhea
-from miralax vs abx use related
-low concern for cdiff, imodium PRN started
Hyponatremia
Anxiety
ASCVD / CVA
GERD / History of GI Bleeding
History of hypothyroidism
DVT Prophylaxis: SCD's
Code Status: Full
PT eval again; was refusing to work earlier in the hospitalization however now agrees
General: Comfortable; Negative Respiratory Distress
Respiratory: Clear to Auscultation
Cardiac: Regular Rhythm and S1/S2
GI: Nontender and Distended
Neuro: Awake, Alert and Oriented; Negative Tremors
Psych: Calm; Negative Confused
Anticipated Discharge: Within 24 hours
Subjective/Interval History
-
Date of Service: October 31, 2024
denies pain
Objective Data
-
Labs:
Laboratory Results
10/31/24
06:03
WBC 13.8 H
Hgb 8.5 L
Hct 25.5 L
Plt Count 171
Sodium 134 L
Potassium 3.7
Chloride 101
Carbon Dioxide 30
BUN 36 H
Creatinine 1.5 H
Glucose 76
Calcium 7.0 L
Vital Signs:
Vital Signs
Temp Pulse Resp BP Pulse Ox
98.1 F 62 18 84/43 99
10/31/24 11:07 10/31/24 11:07 10/31/24 11:07 10/31/24 11:07 10/31/24 11:07
I&O
10/30/24 10/31/24 11/01/24
06:59 06:59 06:59
Intake Total 1510 / 1510 1160 / 1160
Output Total 200 / 200 275 / 275
Balance 1310 / 1310 885 / 885
--- NOTE | 2024-10-31 11:22 | PTCARENOTE ---
Patient's BP 86/48 manually; Hr 62; Dr. Norwood notified. ok to give 1300 Midodrine now and recheck BP in an hour. Patient is asymptomatic. Will continue to monitor.
[2024-10-31] MEDS: IMODIUM 2 MG PO (11:27)
--- NOTE | 2024-10-31 12:40 | PN.CDI ---
CDI
- -
CDI:
Physician Documentation Request
Admit Date: 10/15/24 20:27
Dear Doctor Cuco,
Please review the following and provide your response in the progress notes.
Clinical Indicators:
- 10/30 RN assessments indicate new Stage 2 buttock pressure injury
Physician documentation of the type and location of wounds is required for compliant documentation. Based on the above clinical findings and your assessment, please provide the following in your progress note:
1. Location of the ulcer/wound, including laterality.
2. Type (etiology) of ulcer/wound:
- Diabetic ulcer
- Arterial (ischemic) ulcer
- Traumatic wound
- Venous stasis ulcer
- Pressure (decubitus) ulcer
- Other
Use of terms such as suspected, likely, concern for, or probable (associated with a specific diagnosis that is being evaluated, monitored, or treated as if it exists) are acceptable and can be coded in the inpatient setting, when documented at the
time of discharge.
Thank you,
Fercho Beck RN
CDI Specialist
Please use your independent medical judgment in providing your response.
*Source: National Pressure Ulcer Advisory Panel (NPUAP)
--- NOTE | 2024-10-31 15:06 | CM ---
Reviewed the chart notes. PT reordered for discharge planning purposes. CM continues to be available to patient/family and is monitoring medical plan for needs at discharge.
Plan: Discharge to home with [facility].
Fax report to: [phone]
[2024-10-31] MEDS: SINGULAIR 10 MG PO (16:34)
[2024-10-31] MEDS: LIPITOR 40 MG PO (16:35)
[2024-10-31] MEDS: XANAX 0.25 MG PO (23:12)
[2024-11-01 03:24] VITALS: BP 97/50
[2024-11-01 04:32] LABS: Hematocrit 24.2 % (37.0-47.0); Hemoglobin 8.1 g/dL (12.0-16.0); Mean Corp Hgb Conc. 33.5 g/dL (33.0-37.0); Mean Corpuscular Volume 93.8 fL (81.0-99.0); Nucleated Red Blood Cells % 0 %; Platelet Count 172 10^3/uL (130-400); Red Cell Dist. Width 18.3 % (11.5-14.5)
[2024-11-01 04:54] LABS: Blood Urea Nitrogen 30 mg/dl (7-17); Calcium 6.8 mg/dl (8.4-10.2); Carbon Dioxide 28 mmol/L (22-30); Chloride 104 mmol/L (98-107); Estimated Creatinine Clearance 34 ml/min; Glucose 82 mg/dl (70-99); Potassium 3.6 mmol/L (3.5-5.1); Sodium 135 mmol/L (135-145); eGFR 38.27
[2024-11-01] MEDS: SYNTHROID 200 MCG PO (05:08)
[2024-11-01 07:19] VITALS: BP 119/51
--- NOTE | 2024-11-01 08:38 | PHA.VAN.FU ---
Vancomycin Assessment / Plan
- Assessment
Renal Function: SCR Decreasing (1.4 from 1.5 from 1.8 earlier in the week)
WBC's are: Trending Down (11.6 from 13.8)
In the past 24 hrs, patient has been: Afebrile
Concomitant Antimicrobials: None
- Dosing Plan
Dosing by Level: Hold off on dosing today
- Monitoring Plan
Random Level: 11/02/24 with AM labs
- Follow Up
Pharmacy will continue to follow.
Vancomycin Follow UP
- -
Patient Age: 78
Patient Sex: Female
Vancomycin Day #: 13
Indication: Pulmonary/Respiratory
Requesting Provider: Dr. Norwood / [place]
Pertinent Antimicrobial Allergies:
erythromycin base - vomiting
Height / Weight:
Height 5 ft 5 in
Actual Weight 80.059 kg
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
- Vital Signs / Lab Results
Temp Pulse Resp BP Pulse Ox
97.6 F 80 18 119/51 97
11/01/24 07:19 11/01/24 07:19 11/01/24 07:19 11/01/24 07:19 11/01/24 07:19
Lab Results - Hematology
10/30/24 10/31/24 11/01/24
08:46 06:03 04:04
WBC 16.0 H 13.8 H 11.6 H
Lab Results - Chemistry
10/30/24 10/31/24 11/01/24
04:46 06:03 04:03
BUN 39 H 36 H 30 H
Creatinine 1.8 H 1.5 H 1.4 H
Estimated Creat Clear 26 32 34
Microbiology Results
10/20/24 14:25 Fungal Culture - Preliminary
Pleural Fluid Culture in progress.
Positive cultures are reported as soon as detected.
Final report to follow in four to five weeks.
Therapeutic Drug Monitoring
Random Vancomycin 11.9 ug/ml 10/30/24 04:46
[2024-11-01 08:46] LABS: Magnesium 1.8 mg/dl (1.6-2.3)
[2024-11-01] MEDS: CALCIUM GLUCONATE 100 IV (09:10)
[2024-11-01] MEDS: PROTONIX 40 MG PO ×2 (09:10→20:28)
[2024-11-01] MEDS: TYLENOL 1000 MG PO ×3 (09:10→22:55)
[2024-11-01] MEDS: FEMARA 2.5 MG PO (09:12)
[2024-11-01] MEDS: OSCAL 500 + D PO ×2 (09:12→20:28)
[2024-11-01] MEDS: ASPIR LOW (ENTERIC COATED) 81 MG PO (09:12)
--- NOTE | 2024-11-01 09:35 | W.PN.ID1 ---
Date of Service
Date of Service: November 01, 2024
Today's Communication
- deescalation to oral doxycycline 100 mg PO BID to complete a 4 week course 10/21-11/17
Assessment / Plan
MRSA Empyema
Leukocytosis; improved.
H/o previous thoracentesis
Anemia
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
- chest tube removed 10/26.
- deescalation to oral doxycycline 100 mg PO BID to complete a 4 week course 10/21-11/17
- Leukocytosis with improvement.
No diarrhea. Stool formed
Note IBS-D on trial of immodium
Monitor WBC.
Chief Complaint
-: Other (MRSA empyema)
Subjective / Review of Systems
afebrile
remains on midodrine
tolerating current therapies
getting PT eval
Vital Signs / Physical Exam
Vital Signs
Vital Signs
Temp Pulse Resp BP Pulse Ox
97.6 F 80 18 119/51 97
11/01/24 07:19 11/01/24 09:11 11/01/24 07:19 11/01/24 09:11 11/01/24 07:19
Physical Exam
Constitutional: No Acute Distress
Cardiovascular: Regular Rate and S1/S2; Negative Murmur or Rub
Pulmonary: Clear and Symmetric; Negative Wheezes or Rales
Gastrointestinal: Soft, Non Tender, Non Distended and Normal Bowel Sounds
Skin: Warm and Dry; Negative Rash or Jaundice
Objective Data
Lab Data
Lab Results
11/01/24 04:04
11/01/24 04:03
PT 15.4 Sec (11.4-14.6) H 10/28/24 08:38
INR 1.18 10/28/24 08:38
APTT 32.7 Sec (23.4-35.0) 10/19/24 10:07
Estimated Creat Clear 34 ml/min 11/01/24 04:03
Total Bilirubin 0.9 mg/dl (0.2-1.3) 10/28/24 08:38
AST 29 U/L (14-36) 10/28/24 08:38
ALT 19 U/L (0-35) 10/28/24 08:38
Alkaline Phosphatase 98 U/L (38-126) 10/28/24 08:38
Most recent labs reviewed.
Micro Results:
10/20/24 14:25 Fungal Culture - Preliminary
Pleural Fluid Culture in progress.
Positive cultures are reported as soon as detected.
Final report to follow in four to five weeks.
10/20/24 14:25 Acid Fast Bacilli Smear - Preliminary
Pleural Fluid Acid Fast Bacilli Culture - Preliminary
10/20/24 14:25 Body Fluid Culture - Final
Pleural Fluid Staph aureus MRSA
Gram Stain - Final
10/20/24 11:24 MRSA Screen - Final
Nose Staph aureus MRSA
10/19/24 14:48 Body Fluid Culture - Final
Pleural Fluid Staph aureus MRSA
Gram Stain - Final
Imaging:
10/26/24 CT chest: Left chest tube in place with marked improvement of previous fusion; minimal residual left pleural effusion. Mild lobular pleural thickening. No pneumothorax. Subtle patchy interstitial and groundglass opacity in the right apex has
developed. This could represent hypoinflation versus nonspecific subtle pneumonitis.
--- NOTE | 2024-11-01 10:25 | W.PN.NEPH.PH ---
Today's Communication / Plan
-
Fluid restriction
Assessment/Plan
-
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
Patient was admitted to on multiple recent occasions. 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
Admitted in September for pneumonia / effusion and ascites. She was treated with abx, paracentesis and thoracentesis.
She was found to have spindle cell cancer in May and has been followed at [facility] (Dr. Teixeira). She had been scheduled for debulking surgery; however, this was deferred based on recent clinical issues, ascites, etc.
Since admission she was seen by ENT, pulmonary, infectious disease. She is status post chest tube, paracentesis, thoracentesis
She has a left nephrostomy tube since August for left ureteral obstruction.
Renal consultation was requested for acute kidney injury with a creatinine of 1.9 from 1.2 over 48 hours. She had episode of hypotension where her systolic blood pressure was in the 70s and she has been on ongoing antibiotics
Impression.
Acute on chronic kidney disease baseline creatinine 1.4 but is low as of 1.2
Left empyema status post chest tube
Spindle cell carcinoma
Left nephrostomy tube
[id number]
Anemia
Plan.
The patient has multiple comorbidities and etiologies are multifactorial including decreased effective arterial blood volume with third spacing episodes of hypotension, albumin 2.3, antibiotics.
Agree with continuing midodrine, strong prerenal stimulus in play
lytes and GFR at baseline: Remains on fluid restriction
Urinalysis bland no protein or hematuria though 6-10 white blood cells= will need to consider AIN though unlikely with clinical correlation of hypotension
-
-
Date of Service: November 01, 2024
CC / HPI / ROS
-
Chief Complaint:
davonte
History of Present Illness:
Hemodynamically labile on midodrine
Creatinine at 1.5
Sodium of 134
Review of Systems:
oliguric left nephrostomy tube
no cp
no sob
Labs
-
Labs:
WBC 11.6 10^3/uL (4.8-10.8) H 11/01/24 04:04
RBC 2.58 10^6/uL (4.20-5.40) L 11/01/24 04:04
Hgb 8.1 g/dL (12.0-16.0) L 11/01/24 04:04
Hct 24.2 % (37.0-47.0) L 11/01/24 04:04
Plt Count 172 10^3/uL (130-400) 11/01/24 04:04
Sodium 135 mmol/L (135-145) 11/01/24 04:03
Potassium 3.6 mmol/L (3.5-5.1) 11/01/24 04:03
Chloride 104 mmol/L (98-107) 11/01/24 04:03
Carbon Dioxide 28 mmol/L (22-30) 11/01/24 04:03
BUN 30 mg/dl (7-17) H 11/01/24 04:03
Creatinine 1.4 mg/dL (0.6-1.0) H 11/01/24 04:03
eGFR 38.27 11/01/24 04:03
Glucose 82 mg/dl (70-99) 11/01/24 04:03
Calcium 6.8 mg/dl (8.4-10.2) L* 11/01/24 04:03
Phosphorus 5.6 mg/dl (2.5-4.5) H 10/16/24 06:43
Xga-Y-Lplwkelvspu Pept 1850 pg/ml 10/23/24 06:27
Albumin 2.3 g/dl (3.5-5.0) L 10/28/24 08:38
Physical Exam
-
Vital Signs:
Vital Signs
Temp Pulse Resp BP Pulse Ox
97.6 F 80 18 119/51 97
11/01/24 07:19 11/01/24 09:11 11/01/24 07:19 11/01/24 09:11 11/01/24 07:19
Respiratory:: Bilateral: Coarse
Lung Excursion:: Normal
Abdomen:: Soft
Bowel Sounds:: Normal
Extremity Edema:: +2: Bilateral:
Other Findings::
left nephrostomy tube
--- NOTE | 2024-11-01 10:40 | WOUNDNOTE ---
BUTTOCKS (upper medial)
--- NOTE | 2024-11-01 10:44 | WOUNDNOTE ---
WO RN note: Patient seen for [facility] report for stage 2 buttocks pressure injury. History of IBS, CKD3b, spindle call ca with multiple abdominal and pelvic masses, ascites, CVA. Patient has a dermal ulcer R upper inner buttocks d/t stooling and
friction, MASD. Patient moves slowly and is on a turning schedule. She is on a Centrella Max air and has an air chair cushion. Calazime ointment has been used and was applied. Bariatric air chair cushion given per patient request. Skin on heels
intact. Appetite good for breakfast. PT is suggesting SNF rehab when discharged. Care plan to be updated. Consult as needed.
--- NOTE | 2024-11-01 11:02 | PN.IRAD.UPD ---
Update Note - IRAD
- -
New stitch placed around nephrostomy tube at bedside. New,clean,dry dressing placed over site. Patient tolerated procedure well. RN aware of new suture on tube .
[2024-11-01] MEDS: VIBRAMYCIN 100 MG PO ×2 (11:07→20:28)
[2024-11-01 11:17] VITALS: BP 107/54
--- NOTE | 2024-11-01 11:36 | W.PN.HOSP.TC ---
Today's Communication/Plan
-
Monitor vital signs and see plan
Continue with doxycycline per ID recommendation
Discussed with dependency case manager, PT now recommending SNF. Patient agreeable
Replete mag, Calcium
Assessment / Plan
Assessment / Plan
Left empyema from MRSA
Possible trapped lung
Acute hypoxic reps insufficiency - resolved
-Chest x-ray with large pleural effusion with associated compressive atelectasis/airspace consolidation
-s/p Thora with drainage of 900 cc serosanguineous fluid. Fluid studies showing pH 7.14 with WBC 29K 80% PMN.
-Pleural fluid culture later reported to be MRSA. Cytopath neg for malignancy. eventual deescalation to oral doxycycline 100 mg PO BID to complete a 4 week course 10/21-11/17
-Status post IR tPA/DNase infusion and left pleural tube on 10/22 and on
-10/26 CT chest/a/p images and report reviewed - significant improvement in the pleural fluid collection
-CT tube removed 10/26
-F/u Cxr after CT tube removal shows stable residual findings.
Monitor leukocytosis
now on oral doxycycline 100 mg PO BID to complete a 4 week course 10/21-11/17
Acute on chronic anemia likely multifactorial
-from acute blood loss with hematuria/sanguinous CT tube drainage, anemia of Chronic Disease / Chronic Iron Deficiency
- Patient was provided 1 unit PRBC earlier in the admission
- 10/27 Developed new sudden drop in hemoglobin from 7.5-8 to 5.5
No reported blood in stool. Chest x-ray shows stable findings and no concern of hemothorax. CT a/p ruled out any
Total required 4 units PRBC this hospitalization
- Heparin subq held.
Heme test neg, if hemoglobin continues to be low then will consult hematology
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
-no contrast provided for imaging
-no diuretics or other nephrotoxic medication provided
-SBP < 100 at times and possibly hypoperfusion related. Midodrine dose increased
-repeat Echo would be warranted if not improved
-Urine eosinophils negative
-Not retaining urine on bladder scan.
-Last potential differential is abd compartment syndrome with large abd mass/ascites vs renal venous outflow obstruction due to external pressure
-Nephrology following
History of hypertension
Currently hypotensive at times, holding metoprolol
Hyponatremia
- from ADH excess with blood loss likely
- added fluid restriction
- Nephro following
Left Ureteral Obstruction
Hematuria -resolved
- s/p prior ureteral stent. Now with L PCN in place.
- Patient was having some hematuria from left PCN. Status post CT abdomen pelvis and IR guided nephrostomy tube which were normal.
- continue monitoring
Left Mandible Subluxation
-Evident prominence and tenderness over the L TMJ area. Improving.
-CT scan done in the ED shows subluxation of the L mandibular head with adjacent high attenuation - ? crystal or inflammatory arthropathy.
-Dr. Norwood unable to get hold of OMFS. ENT evaluated and recommended course of steroid which patient finished. Patient to follow-up in office
Hypocalcemia
Hypomagnesemia
Hypokalemia
- replace as needed
- Patient was treated for HYPERcalcemia in August with IVFs and Pamidronate.
- Since has had HYPOcalcemia requiring supplementation.
- Follow lytes and adjust treatment as needed.
Spindle Cell Cancer
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
Ascites
- Continue letrozole.
- Ascites presumed malignant though pathology negative on last admission paracentesis. Not much fluid this time for paracentesis
- Follow-up with Oncology after discharge. Patient to follow-up with Dr. Teixeira at [facility]
Prolonged QTc
-EKG reviewed and patient have baseline RBBB with QTc ranging anywhere between 510 to 550 ms
-Lexapro held , avoid QTc prolonging medication as possible
Diarrhea
-from miralax vs abx use related
-low concern for cdiff, imodium PRN started
Stage 2 buttock pressure injury
Hyponatremia
Anxiety
ASCVD / CVA
GERD / History of GI Bleeding
History of hypothyroidism
DVT Prophylaxis: SCD's
Code Status: Full
PT eval again; was refusing to work earlier in the hospitalization however now agrees. PT now rec SNF. CM aware
General: Comfortable; Negative Respiratory Distress
Respiratory: Clear to Auscultation
Cardiac: Regular Rhythm and S1/S2
GI: Nontender and Distended
Neuro: Awake, Alert and Oriented; Negative Tremors
Psych: Calm; Negative Confused
Anticipated Discharge: Within 24 hours
Subjective/Interval History
-
Date of Service: November 01, 2024
denies pain
Objective Data
-
Labs:
Laboratory Results
11/01/24 11/01/24
04:03 04:04
WBC 11.6 H
Hgb 8.1 L
Hct 24.2 L
Plt Count 172
Sodium 135
Potassium 3.6
Chloride 104
Carbon Dioxide 28
BUN 30 H
Creatinine 1.4 H
Glucose 82
Calcium 6.8 L*
Vital Signs:
Vital Signs
Temp Pulse Resp BP Pulse Ox
97.6 F 72 18 107/54 100
11/01/24 11:17 11/01/24 11:17 11/01/24 11:17 11/01/24 11:17 11/01/24 11:17
I&O
10/31/24 11/01/24 11/02/24
06:59 06:59 06:59
Intake Total 1160 / 1160 1140 / 1140
Output Total 275 / 275 525 / 525
Balance 885 / 885 615 / 615
[2024-11-01] MEDS: MAGNESIUM SULFATE 102 GRAMS IV (12:04)
--- NOTE | 2024-11-01 12:20 | CM ---
CM following re: discharge planning.
Reviewed pt's chart, met with pt.
Per chart review chest tube removed 10/26, continue with IV vancomycin with a plan to switch antibiotics to PO, continue supportive care.
Updated PT and OT evaluations noted - SNF level of care recommended. Pt is aware, expressed her agreement. A list of SNFs provided. 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
home [facility], [facility], [facility], [facility]. A referral to above SNFs made. Awaiting for determination. pt stated her number one choice is [facility].
Pt lives with 2SH, 1 step to enter, has 2 supportive children. Pt reports she ambulates with a walker, current with [facility].
According to pt most likely will be ready for discharge tomorrow. Pt is aware, expressed her agreement. IMM reviewed, placed on chart, pt has a copy.
D/C plan: preferred SNF.
CM will follow with discharge plan updates as hospitalization progresses
[2024-11-01] MEDS: XANAX 0.25 MG PO ×2 (13:15→22:54)
[2024-11-01 16:01] VITALS: BP 111/66
[2024-11-01] MEDS: SINGULAIR 10 MG PO (17:39)
[2024-11-01] MEDS: LIPITOR 40 MG PO (17:39)
[2024-11-01 19:14] VITALS: BP 111/54
[2024-11-01 23:05] VITALS: BP 105/63
[2024-11-02 03:17] VITALS: BP 110/68
[2024-11-02 04:14] LABS: Hematocrit 26.2 % (37.0-47.0); Hemoglobin 8.7 g/dL (12.0-16.0); Mean Corp Hgb Conc. 33.2 g/dL (33.0-37.0); Mean Corpuscular Volume 93.9 fL (81.0-99.0); Nucleated Red Blood Cells % 0.2 %; Platelet Count 181 10^3/uL (130-400); Red Cell Dist. Width 18.4 % (11.5-14.5)
[2024-11-02 04:38] LABS: Blood Urea Nitrogen 26 mg/dl (7-17); Calcium 6.9 mg/dl (8.4-10.2); Carbon Dioxide 30 mmol/L (22-30); Chloride 104 mmol/L (98-107); Estimated Creatinine Clearance 37 ml/min; Glucose 82 mg/dl (70-99); Magnesium 1.9 mg/dl (1.6-2.3); Potassium 4.4 mmol/L (3.5-5.1); Sodium 135 mmol/L (135-145); eGFR 41.83
[2024-11-02] MEDS: SYNTHROID 200 MCG PO (05:13)
[2024-11-02 07:23] VITALS: BP 113/73
--- NOTE | 2024-11-02 08:45 | VATNOTE ---
Right 4Fr SL Basilic Midline flushed without difficulty. No blood return. Labs were reportedly drawn from PICC during the night.
--- NOTE | 2024-11-02 09:02 | PTCARENOTE ---
Daughter requesting for cons to psych, cards, and [facility] before pt leaves hospital. MD made aware, no acute needs for these cons. Pt educated, no new orders at this time.
[2024-11-02] MEDS: PROTONIX 40 MG PO (09:05)
[2024-11-02] MEDS: VIBRAMYCIN 100 MG PO (09:06)
[2024-11-02] MEDS: TYLENOL 1000 MG PO (09:06)
[2024-11-02] MEDS: ASPIR LOW (ENTERIC COATED) 81 MG PO (09:06)
[2024-11-02] MEDS: FEMARA 2.5 MG PO (09:06)
[2024-11-02] MEDS: CALCIUM GLUCONATE 100 IV (09:07)
[2024-11-02] MEDS: OSCAL 500 + D PO (09:07)
[2024-11-02] MEDS: LOPRESSOR 12.5 MG PO (09:11)
--- NOTE | 2024-11-02 11:04 | W.PN.ID1 ---
Date of Service
Date of Service: November 02, 2024
Today's Communication
- deescalation to oral doxycycline 100 mg PO BID to complete a 4 week course 10/21-11/17
- follow up with PCP
Assessment / Plan
MRSA Empyema
Leukocytosis; improved.
H/o previous thoracentesis
Anemia
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
- chest tube removed 10/26.
- deescalation to oral doxycycline 100 mg PO BID to complete a 4 week course 10/21-11/17
- follow up with PCP
Chief Complaint
-: Other (MRSA empyema)
Subjective / Review of Systems
afebrile
bp stable
leukocytosis resolved
Vital Signs / Physical Exam
Vital Signs
Vital Signs
Temp Pulse Resp BP Pulse Ox
97.5 F 120 16 113/73 98
11/02/24 07:23 11/02/24 09:06 11/02/24 07:23 11/02/24 09:06 11/02/24 07:23
Physical Exam
Constitutional: No Acute Distress
Cardiovascular: Regular Rate and S1/S2; Negative Murmur or Rub
Pulmonary: Clear and Symmetric; Negative Wheezes or Rales
Gastrointestinal: Soft, Non Tender, Non Distended and Normal Bowel Sounds
Skin: Warm and Dry; Negative Rash or Jaundice
Objective Data
Lab Data
Lab Results
11/02/24 03:49
11/02/24 03:49
PT 15.4 Sec (11.4-14.6) H 10/28/24 08:38
INR 1.18 10/28/24 08:38
APTT 32.7 Sec (23.4-35.0) 10/19/24 10:07
Estimated Creat Clear 37 ml/min 11/02/24 03:49
Total Bilirubin 0.9 mg/dl (0.2-1.3) 10/28/24 08:38
AST 29 U/L (14-36) 10/28/24 08:38
ALT 19 U/L (0-35) 10/28/24 08:38
Alkaline Phosphatase 98 U/L (38-126) 10/28/24 08:38
Most recent labs reviewed.
Micro Results:
10/20/24 14:25 Fungal Culture - Preliminary
Pleural Fluid Culture in progress.
Positive cultures are reported as soon as detected.
Final report to follow in four to five weeks.
10/20/24 14:25 Acid Fast Bacilli Smear - Preliminary
Pleural Fluid Acid Fast Bacilli Culture - Preliminary
10/20/24 14:25 Body Fluid Culture - Final
Pleural Fluid Staph aureus MRSA
Gram Stain - Final
10/20/24 11:24 MRSA Screen - Final
Nose Staph aureus MRSA
10/19/24 14:48 Body Fluid Culture - Final
Pleural Fluid Staph aureus MRSA
Gram Stain - Final
Imaging:
10/26/24 CT chest: Left chest tube in place with marked improvement of previous fusion; minimal residual left pleural effusion. Mild lobular pleural thickening. No pneumothorax. Subtle patchy interstitial and groundglass opacity in the right apex has
developed. This could represent hypoinflation versus nonspecific subtle pneumonitis.
[2024-11-02 11:25] VITALS: BP 101/61
--- NOTE | 2024-11-02 11:47 | W.PN.HOSP.TC ---
Today's Communication/Plan
-
Monitor vitals
See plan
Decrease metoprolol
Continue with p.o. antibiotic
Replete calcium
Discharge planning, medically ready for discharge. Discussed with son. Called daughter, could not leave voicemail since its full
dairy department manager aware
Assessment / Plan
Assessment / Plan
Left empyema from MRSA
Possible trapped lung
Acute hypoxic reps insufficiency - resolved
-Chest x-ray with large pleural effusion with associated compressive atelectasis/airspace consolidation
-s/p Thora with drainage of 900 cc serosanguineous fluid. Fluid studies showing pH 7.14 with WBC 29K 80% PMN.
-Pleural fluid culture later reported to be MRSA. Cytopath neg for malignancy. eventual deescalation to oral doxycycline 100 mg PO BID to complete a 4 week course 10/21-11/17
-Status post IR tPA/DNase infusion and left pleural tube on 10/22 and on
-10/26 CT chest/a/p images and report reviewed - significant improvement in the pleural fluid collection
-CT tube removed 10/26
-F/u Cxr after CT tube removal shows stable residual findings.
Monitor leukocytosis
now on oral doxycycline 100 mg PO BID to complete a 4 week course 10/21-11/17
Acute on chronic anemia likely multifactorial
-from acute blood loss with hematuria/sanguinous CT tube drainage, anemia of Chronic Disease / Chronic Iron Deficiency
- Patient was provided 1 unit PRBC earlier in the admission
- 10/27 Developed new sudden drop in hemoglobin from 7.5-8 to 5.5
No reported blood in stool. Chest x-ray shows stable findings and no concern of hemothorax. CT a/p ruled out any
Total required 4 units PRBC this hospitalization
- Heparin subq held.
Heme test neg, if hemoglobin continues to be low then will consult hematology
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
-no contrast provided for imaging
-no diuretics or other nephrotoxic medication provided
-SBP < 100 at times and possibly hypoperfusion related. Midodrine dose increased
-repeat Echo would be warranted if not improved
-Urine eosinophils negative
-Not retaining urine on bladder scan.
-Last potential differential is abd compartment syndrome with large abd mass/ascites vs renal venous outflow obstruction due to external pressure
-Nephrology following
Creatinine 1.3
History of hypertension
Currently hypotensive at times
Decreased metoprolol
Hyponatremia
- from ADH excess with blood loss likely
- added fluid restriction
- Nephro following
Left Ureteral Obstruction
Hematuria -resolved
- s/p prior ureteral stent. Now with L PCN in place.
- Patient was having some hematuria from left PCN. Status post CT abdomen pelvis and IR guided nephrostomy tube which were normal.
- continue monitoring
Left Mandible Subluxation
-Evident prominence and tenderness over the L TMJ area. Improving.
-CT scan done in the ED shows subluxation of the L mandibular head with adjacent high attenuation - ? crystal or inflammatory arthropathy.
-Dr. Norwood unable to get hold of OMFS. ENT evaluated and recommended course of steroid which patient finished. Patient to follow-up in office
Hypocalcemia
Hypomagnesemia
Hypokalemia
- replace as needed
- Patient was treated for HYPERcalcemia in August with IVFs and Pamidronate.
- Since has had HYPOcalcemia requiring supplementation.
- Follow lytes and adjust treatment as needed.
Spindle Cell Cancer
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
Ascites
- Continue letrozole.
- Ascites presumed malignant though pathology negative on last admission paracentesis. Not much fluid this time for paracentesis
- Follow-up with Oncology after discharge. Patient to follow-up with Dr. Teixeira at [facility]
Prolonged QTc
-EKG reviewed and patient have baseline RBBB with QTc ranging anywhere between 510 to 550 ms
-Lexapro held , avoid QTc prolonging medication as possible
Diarrhea
-from miralax vs abx use related
-low concern for cdiff, imodium PRN started
Stage 2 buttock pressure injury
Hyponatremia
Anxiety
ASCVD / CVA
GERD / History of GI Bleeding
History of hypothyroidism
DVT Prophylaxis: SCD's
Code Status: Full
PT eval again; was refusing to work earlier in the hospitalization however now agrees. PT now rec SNF. CM aware.
General: Comfortable; Negative Respiratory Distress
Respiratory: Clear to Auscultation
Cardiac: Regular Rhythm and S1/S2
GI: Nontender and Distended
Neuro: Awake, Alert and Oriented; Negative Tremors
Psych: Calm; Negative Confused
Anticipated Discharge: Today
Subjective/Interval History
-
Date of Service: November 02, 2024
Denies pain
Objective Data
-
Labs:
Laboratory Results
11/02/24
03:49
WBC 8.7
Hgb 8.7 L
Hct 26.2 L
Plt Count 181
Sodium 135
Potassium 4.4
Chloride 104
Carbon Dioxide 30
BUN 26 H
Creatinine 1.3 H
Glucose 82
Calcium 6.9 L*
Vital Signs:
Vital Signs
Temp Pulse Resp BP Pulse Ox
98.3 F 81 16 101/61 99
11/02/24 11:25 11/02/24 11:25 11/02/24 11:25 11/02/24 11:25 11/02/24 11:25
I&O
11/01/24 11/02/24 11/03/24
06:59 06:59 06:59
Intake Total 1140 / 1140 2120 / 2120 100 / 100
Output Total 525 / 525 300 / 300
Balance 615 / 615 1820 / 1820 100 / 100
--- NOTE | 2024-11-02 11:59 | W.DCSUMMARY ---
Discharge Summary
Discharge Data
Date of Admission: 10/15/24
Date of Discharge: 11/02/24
-
Pending Results: No
Hospital Course
78-year-old female with past medical history of CKD, spindle cell cancer, left ureteral obstruction with PCN, IBS, GERD, GI bleed, hypothyroidism, anxiety, hyponatremia came to the hospital initially with left mandible subluxation. For this she was
seen by ENT who recommended her to follow-up with them outpatient and patient was started on short course of prednisone which improved her symptoms. While she was in the hospital she developed shortness of breath where imaging was consistent with
pleural effusion. She required thoracentesis which appeared to be positive for empyema. Cultures later came back positive for MRSA. She was seen by pulmonary and infectious disease for this. She required chest tube for empyema along with IR
guided tPA/DNase infusion. Over time she continued to improve and chest tube was removed. For her antibiotics initially she was started on vancomycin which was later transitioned to oral doxycycline to complete the course per infectious disease
recommendation. While she was in the hospital she also had acute on chronic anemia and required multiple times blood transfusion. Heme test stool was done which was negative. She also developed DION on CKD for which she was seen by nephrology. It
was determined that her DION likely was secondary to hypoperfusion from hypotension so she was started on midodrine. Patient was also evaluated by physical therapy who recommended SNF. She also had prolonged QTc for which her Lexapro was held. She
was instructed to follow-up with psychiatry outpatient. For her malignancy she was instructed to follow-up with her outpatient oncologist soon outpatient. Once her symptoms continue to improve she was then discharged to rehab with instructions to
follow-up with all her physicians outpatient.
Discharge Plan
-
Patient Disposition: Long-Term/SNF
Discharge Diagnosis/Procedures: Left empyema from MRSA
Possible trapped lung
Acute on chronic anemia
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
Hyponatremia
Left mandible subluxation
Hypocalcemia
Hypomagnesemia
Hypokalemia
Spindle cell cancer
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
Prolonged QTc
Condition: Fair
Diet: As tolerated and Other diet
Additional Diets: 40 ounce fluid restriction
Activity: With assistance and As tolerated
Driving Restrictions: Not until seen by your Dr
Blood Work: CBC and CMP next week with primary care provider
Activity Restrictions/Additional Instructions:
Wound Care Instructions
Sacral/buttocks/sirisha skin-clean gently with sirisha cleanser or mild soap and water, zinc barrier ointment TID and as needed for stooling.
Pressure redistributing chair cushion (i.e. Air chair cushion).
Air mattress.
Elevate heels off bed with pillow/s.
Follow up with wound care management specialist or at wound care center if needed, call for an appointment.
oral doxycycline 100 mg PO BID to complete a 4 week course 10/21-11/17
Referrals:
Kj Livingston MD [Active, Pulmonary Medicine] - in one to two weeks
Abhishek Diego DO [Active, ENT] - in two weeks
Norberto Marinelli DO [Active, Nephrology]
Samson Davenport MD [Family Provider, Internal Medicine] - in less than 1 week
Maye Nuñez MD [Active, Infectious Diseases]
Prescriptions:
New
doxycycline hyclate 100 mg Capsule
100 mg PO Q12 Qty: 0 0RF
midodrine 5 mg Tablet
10 mg PO TID@0800,1300,1800 Qty: 0 0RF
acetaminophen [Tylenol Extra Strength] 500 mg Tablet
1,000 mg PO TID Qty: 0 0RF
metoprolol tartrate 25 mg Tablet
12.5 mg PO BID Qty: 0 0RF
calcium carbonate-vitamin D3 [Oyster Shell Calcium-Vit D3] 500 mg-5 mcg (200 unit) Tablet
1 tab PO BID Qty: 0 0RF
Continued
montelukast 10 MG tablet
10 mg PO QPM
pantoprazole 40 MG tablet,delayed release (DR/EC)
40 mg PO BID
aspirin 81 mg Tablet,Delayed Release (Dr/Ec)
81 mg PO DAILY Qty: 0 0RF
levothyroxine 200 mcg Tablet
200 mcg PO DAILY @ 0600 Qty: 30 0RF
dicyclomine 10 mg Capsule
10 mg PO BID PRN (Reason: Muscle Spasms) Qty: 0 0RF
Rx Instructions:
AC
loperamide 2 mg Capsule
2 mg PO DAILYPRN PRN (Reason: loose stools)
calcium polycarbophil [FiberCon] 625 mg Tablet
1,250 mg PO BIDPRN PRN (Reason: constipation)
fluticasone propionate [Flonase Allergy Relief] 50 mcg/actuation spray,suspension
1 spray intranasal DAILY Qty: 16 0RF
furosemide 20 mg tablet
20 mg PO DAILY PRN (Reason: Fluid Retention/Swelling) Qty: 0 0RF
therapeutic multivitamin Tablet
1 tab PO QPM
Visbiome 112.5 billion cell Capsule
1 cap PO DAILY
acetaminophen 325 mg tablet
650 mg PO DAILYPRN PRN (Reason: mild pain)
letrozole 2.5 mg tablet
2.5 mg PO DAILY
cholestyramine (with sugar) 4 gram powder in packet
1 ea PO QPM
Rx Instructions:
must be mixed in apple juice
alprazolam 0.25 mg Tablet
0.25 mg PO Q8HPRN PRN (Reason: anxiety) 3 Days Qty: 12 0RF
loratadine 10 mg Tablet
10 mg PO DAILY 30 Days Qty: 30 0RF
atorvastatin 40 mg Tablet
40 mg PO QPM 30 Days Qty: 30 0RF
Changed
tramadol 50 mg tablet
50 mg PO DAILYPRN PRN (Reason: moderate pain) Qty: 3 0RF
Held
escitalopram oxalate 20 mg Tablet
20 mg PO QPM
Hold Instructions: Restart when okay with psychiatry
Discontinued
metoprolol tartrate 50 mg tablet
25 mg PO BID
Discharge Orders:
Discharge Patient (As Directed); Ordered 11/02/24
Ordered By: Jos Norwood
Discharge Date and Time
Discharge Date/Time: 11/02/24 17:03
Print Language: PORTUGUESE
--- NOTE | 2024-11-02 12:14 | CM ---
CM following re: discharge planning.
Reviewed pt's chart, met with pt and pt's two best friends at bedside.
Pt has been notified that [facility], [facility] denied a referral due to not having a bed available and [facility] offered a bed. Pt expressed her great satisfaction with the discharge plan outcome and she greatly accepted [facility].
CM spoke to [facility] director china and she confirmed that pt is accepted for admission today.
IMM reviewed yesterday and placed on chart, pt has a copy.
arranged ambulance transport BLS with picker / packer time 16:30. [facility] completed and left with .
[facility] nursing report: [phone]
Discharge instructions fax: [phone]
D/c plan: [facility]
--- NOTE | 2024-11-02 15:09 | PTCARENOTE ---
Report called to RAYMOND Kyle at [facility] with call back name and number. [id number] pickup time with [facility]. PRN Xanax administered per pt request.
[2024-11-02] MEDS: XANAX 0.25 MG PO (15:18)
[2024-11-02] MEDS: TYLENOL PO (15:18)
[2024-11-02 15:22] VITALS: BP 99/52
--- NOTE | 2024-11-02 15:47 | W.PN.NEPH.PH ---
Today's Communication / Plan
-
sign off
Assessment/Plan
-
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
Patient was admitted to on multiple recent occasions. 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
Admitted in September for pneumonia / effusion and ascites. She was treated with abx, paracentesis and thoracentesis.
She was found to have spindle cell cancer in May and has been followed at [facility] (Dr. Teixeira). She had been scheduled for debulking surgery; however, this was deferred based on recent clinical issues, ascites, etc.
Since admission she was seen by ENT, pulmonary, infectious disease. She is status post chest tube, paracentesis, thoracentesis
She has a left nephrostomy tube since August for left ureteral obstruction.
Renal consultation was requested for acute kidney injury with a creatinine of 1.9 from 1.2 over 48 hours. She had episode of hypotension where her systolic blood pressure was in the 70s and she has been on ongoing antibiotics
Impression.
Acute on chronic kidney disease baseline creatinine 1.4 but is low as of 1.2
Left empyema status post chest tube
Spindle cell carcinoma
Left nephrostomy tube
[id number]
Anemia
Plan.
The patient has multiple comorbidities and etiologies are multifactorial including decreased effective arterial blood volume with third spacing episodes of hypotension, albumin 2.3, antibiotics.
Agree with continuing midodrine, strong prerenal stimulus in play
lytes and GFR at baseline: Remains on fluid restriction
Urinalysis bland no protein or hematuria though 6-10 white blood cells= will need to consider AIN though unlikely with clinical correlation of hypotension
will sign off
-
-
Date of Service: November 02, 2024
CC / HPI / ROS
-
Chief Complaint:
davonte
History of Present Illness:
Hemodynamically labile on midodrine
Creatinine at 1.5
Sodium of 134
Review of Systems:
oliguric left nephrostomy tube
no cp
no sob
Labs
-
Labs:
WBC 8.7 10^3/uL (4.8-10.8) 11/02/24 03:49
RBC 2.79 10^6/uL (4.20-5.40) L 11/02/24 03:49
Hgb 8.7 g/dL (12.0-16.0) L 11/02/24 03:49
Hct 26.2 % (37.0-47.0) L 11/02/24 03:49
Plt Count 181 10^3/uL (130-400) 11/02/24 03:49
Sodium 135 mmol/L (135-145) 11/02/24 03:49
Potassium 4.4 mmol/L (3.5-5.1) 11/02/24 03:49
Chloride 104 mmol/L (98-107) 11/02/24 03:49
Carbon Dioxide 30 mmol/L (22-30) 11/02/24 03:49
BUN 26 mg/dl (7-17) H 11/02/24 03:49
Creatinine 1.3 mg/dL (0.6-1.0) H 11/02/24 03:49
eGFR 41.83 11/02/24 03:49
Glucose 82 mg/dl (70-99) 11/02/24 03:49
Calcium 6.9 mg/dl (8.4-10.2) L* 11/02/24 03:49
Phosphorus 5.6 mg/dl (2.5-4.5) H 10/16/24 06:43
Ssg-J-Efnbjivbpyh Pept 1850 pg/ml 10/23/24 06:27
Albumin 2.3 g/dl (3.5-5.0) L 10/28/24 08:38
Physical Exam
-
Vital Signs:
Vital Signs
Temp Pulse Resp BP Pulse Ox
98.0 F 71 16 99/52 98
11/02/24 15:22 11/02/24 15:22 11/02/24 15:22 11/02/24 15:22 11/02/24 15:22
Respiratory:: Bilateral: Coarse
Lung Excursion:: Normal
Abdomen:: Soft
Bowel Sounds:: Normal
Extremity Edema:: +2: Bilateral:
Other Findings::
left nephrostomy tube
== END 2024-11-02 17:03 | DRG 157 ==
LOC: 2 NORTH 20:27
PROVIDERS: Hospitalist; Internal Medicine; Internal Medicine Infectious Disease; Nurse Practitioner Family; Radiology Vascular & Interventional Radiology; ADMITTING PHYSICIAN Hospitalist; ATTENDING PHYSICIAN Internal Medicine; CONSULT PHYSICIAN Internal Medicine; CONSULT PHYSICIAN Internal Medicine Nephrology; CONSULT PHYSICIAN Student in an Organized Health Care Education/Training Program; EMERGENCY PHYSICIAN Emergency Medicine; FAMILY PHYSICIAN Internal Medicine
PROC: 30233N1 Transfusion of Nonautologous Red Blood Cells into Peripheral Vein, Percutaneous Approach (ICD-10-PCS; 2024-10-17)
PROC: 0W9B3ZZ Drainage of Left Pleural Cavity, Percutaneous Approach (ICD-10-PCS; 2024-10-19)
PROC: 0W9B30Z Drainage of Left Pleural Cavity with Drainage Device, Percutaneous Approach (ICD-10-PCS; 2024-10-20)
PROC: 3E0L317 Introduction of Other Thrombolytic into Pleural Cavity, Percutaneous Approach (ICD-10-PCS; 2024-10-24)
PROC: 3E0L3GC Introduction of Other Therapeutic Substance into Pleural Cavity, Percutaneous Approach (ICD-10-PCS; 2024-10-24)
DX: S03.02XA Dislocation of jaw, left side, initial encounter (principal); J86.9 Pyothorax without fistula; J96.01 Acute respiratory failure with hypoxia; J90 Pleural effusion, not elsewhere classified; E87.1 Hypo-osmolality and hyponatremia; R18.8 Other ascites; J98.11 Atelectasis; N13.30 Unspecified hydronephrosis; N17.9 Acute kidney failure, unspecified; E83.51 Hypocalcemia; E89.0 Postprocedural hypothyroidism; M26.622 Arthralgia of left temporomandibular joint; M62.838 Other muscle spasm; F41.9 Anxiety disorder, unspecified; D50.9 Iron deficiency anemia, unspecified; C76.8 Malignant neoplasm of other specified ill-defined sites; N18.32 Chronic kidney disease, stage 3b; I12.9 Hypertensive chronic kidney disease with stage 1 through stage 4 chronic kidney disease, or unspecified chronic kidney disease; M19.90 Unspecified osteoarthritis, unspecified site; K21.9 Gastro-esophageal reflux disease without esophagitis; E83.42 Hypomagnesemia; E87.6 Hypokalemia; I25.10 Atherosclerotic heart disease of native coronary artery without angina pectoris; N13.5 Crossing vessel and stricture of ureter without hydronephrosis; D63.8 Anemia in other chronic diseases classified elsewhere; I95.9 Hypotension, unspecified; D72.829 Elevated white blood cell count, unspecified; B95.62 Methicillin resistant Staphylococcus aureus infection as the cause of diseases classified elsewhere; K58.9 Irritable bowel syndrome, unspecified; J45.20 Mild intermittent asthma, uncomplicated; F40.240 Claustrophobia; L89.302 Pressure ulcer of unspecified buttock, stage 2; X58.XXXA Exposure to other specified factors, initial encounter; Z96.653 Presence of artificial knee joint, bilateral; Z85.850 Personal history of malignant neoplasm of thyroid; Z86.73 Personal history of transient ischemic attack (TIA), and cerebral infarction without residual deficits; Z87.440 Personal history of urinary (tract) infections; Z88.5 Allergy status to narcotic agent; Z88.6 Allergy status to analgesic agent; Z93.6 Other artificial openings of urinary tract status; Z90.710 Acquired absence of both cervix and uterus; Z90.49 Acquired absence of other specified parts of digestive tract; Z87.01 Personal history of pneumonia (recurrent); Z79.82 Long term (current) use of aspirin; Z79.811 Long term (current) use of aromatase inhibitors; Z79.899 Other long term (current) drug therapy; Z87.19 Personal history of other diseases of the digestive system
CPT/HCPCS: 32555; 32557; 32561; 70450; 70486; 71045; 71250; 74176; 76705; 80048; 80053; 80202; 81003; 81015; 81099; 82150; 82306; 82330; 82340; 82607; 82728; 82746; 82805; 82945; 83010; 83540; 83550; 83615; 83735; 83880; 83986; 84100; 84157; 84439; 84443; 84466; 84484; 84550; 85014; 85018; 85025; 85027; 85384; 85610; 85730; 86850; 86870; 86900; 86901; 86902; 86920; 86922; 87015; 87070; 87102; 87116; 87147; 87186; 87205; 88112; 88305; 89051; 93005; 96361; 96374; 96375; 97162; 97164; 97530; 99152; 99291; C1729; C1769; J2997; P9016; P9047

== ENCOUNTER → 2024-11-06 10:50 | Outpatient (REF) | payer OTHER, MEDICARE, BC, SELFPAY ==
[2024-11-06 11:25] LABS: Hematocrit 24.7 % (37.0-47.0); Hemoglobin 8.0 g/dL (12.0-16.0); Mean Corp Hgb Conc. 32.4 g/dL (33.0-37.0); Mean Corpuscular Volume 95.4 fL (81.0-99.0); Platelet Count 173 10^3/uL (130-400); Red Cell Dist. Width 18.3 % (11.5-14.5)
[2024-11-06 11:32] LABS: Blood Urea Nitrogen 28 mg/dl (7-17); Calcium 7.6 mg/dl (8.4-10.2); Carbon Dioxide 24 mmol/L (22-30); Chloride 108 mmol/L (98-107); Glucose 71 mg/dl (70-99); Potassium 3.7 mmol/L (3.5-5.1); Sodium 136 mmol/L (135-145); eGFR 46.05
== END ==
LOC: OLABP 10:50
PROVIDERS: ATTENDING PHYSICIAN Family Medicine
DX: J86.9 Pyothorax without fistula (principal); B95.62 Methicillin resistant Staphylococcus aureus infection as the cause of diseases classified elsewhere; C49.9 Malignant neoplasm of connective and soft tissue, unspecified; D64.9 Anemia, unspecified; E83.42 Hypomagnesemia; E87.1 Hypo-osmolality and hyponatremia; E87.6 Hypokalemia; E87.70 Fluid overload, unspecified; I95.1 Orthostatic hypotension; L89.152 Pressure ulcer of sacral region, stage 2; N17.9 Acute kidney failure, unspecified; N18.30 Chronic kidney disease, stage 3 unspecified; Z93.6 Other artificial openings of urinary tract status; Z86.73 Personal history of transient ischemic attack (TIA), and cerebral infarction without residual deficits
CPT/HCPCS: 36415; 80048; 85027

== ENCOUNTER → 2024-11-10 11:45 | Outpatient (REF) | payer OTHER, MEDICARE, BC, SELFPAY ==
[2024-11-10 13:42] LABS: Hematocrit 26.0 % (37.0-47.0); Hemoglobin 8.7 g/dL (12.0-16.0); Mean Corp Hgb Conc. 33.5 g/dL (33.0-37.0); Mean Corpuscular Volume 91.9 fL (81.0-99.0); Nucleated Red Blood Cells % 0 %; Platelet Count 211 10^3/uL (130-400); Red Cell Dist. Width 17.8 % (11.5-14.5)
== END ==
LOC: OLABP 11:45
PROVIDERS: ATTENDING PHYSICIAN Family Medicine
DX: J86.9 Pyothorax without fistula (principal); B95.62 Methicillin resistant Staphylococcus aureus infection as the cause of diseases classified elsewhere; C49.9 Malignant neoplasm of connective and soft tissue, unspecified; D64.9 Anemia, unspecified; E83.42 Hypomagnesemia; E87.1 Hypo-osmolality and hyponatremia; E87.6 Hypokalemia; E87.70 Fluid overload, unspecified; I95.1 Orthostatic hypotension; L89.152 Pressure ulcer of sacral region, stage 2; N17.9 Acute kidney failure, unspecified; N18.30 Chronic kidney disease, stage 3 unspecified
CPT/HCPCS: 36415; 85025

== ENCOUNTER → 2024-11-14 10:25 | Outpatient (REF) | payer OTHER, MEDICARE, BC, SELFPAY ==
[2024-11-14 11:12] LABS: Blood Urea Nitrogen 46 mg/dl (7-17); Calcium 9.0 mg/dl (8.4-10.2); Carbon Dioxide 28 mmol/L (22-30); Chloride 98 mmol/L (98-107); Glucose 75 mg/dl (70-99); Potassium 3.0 mmol/L (3.5-5.1); Sodium 134 mmol/L (135-145); eGFR 38.27
== END ==
LOC: OLABP 10:25
PROVIDERS: ATTENDING PHYSICIAN Family Medicine
DX: J86.9 Pyothorax without fistula (principal); B95.62 Methicillin resistant Staphylococcus aureus infection as the cause of diseases classified elsewhere; C49.9 Malignant neoplasm of connective and soft tissue, unspecified; D64.9 Anemia, unspecified; E83.42 Hypomagnesemia; E87.1 Hypo-osmolality and hyponatremia; E87.6 Hypokalemia; N17.9 Acute kidney failure, unspecified; N18.30 Chronic kidney disease, stage 3 unspecified
CPT/HCPCS: 36415; 80048

== ENCOUNTER → 2024-11-17 10:44 | Outpatient (REF) | payer OTHER, MEDICARE, BC, SELFPAY ==
[2024-11-17 11:14] LABS: Hematocrit 24.5 % (37.0-47.0); Hemoglobin 8.1 g/dL (12.0-16.0); Mean Corp Hgb Conc. 33.1 g/dL (33.0-37.0); Mean Corpuscular Volume 92.8 fL (81.0-99.0); Nucleated Red Blood Cells % 0 %; Platelet Count 197 10^3/uL (130-400); Red Cell Dist. Width 18.0 % (11.5-14.5)
== END ==
LOC: OLABP 10:44
PROVIDERS: ATTENDING PHYSICIAN Family Medicine
DX: J86.9 Pyothorax without fistula (principal); B95.62 Methicillin resistant Staphylococcus aureus infection as the cause of diseases classified elsewhere; C49.9 Malignant neoplasm of connective and soft tissue, unspecified; D64.9 Anemia, unspecified; E83.42 Hypomagnesemia; E87.1 Hypo-osmolality and hyponatremia; E87.6 Hypokalemia; E87.70 Fluid overload, unspecified; N17.9 Acute kidney failure, unspecified
CPT/HCPCS: 36415; 85025

== ENCOUNTER → 2024-11-20 09:44 | Outpatient (REF) | payer OTHER, MEDICARE, BC, SELFPAY ==
[2024-11-20 11:23] LABS: Hematocrit 26.5 % (37.0-47.0); Hemoglobin 8.5 g/dL (12.0-16.0); Mean Corp Hgb Conc. 32.1 g/dL (33.0-37.0); Mean Corpuscular Volume 93.6 fL (81.0-99.0); Platelet Count 217 10^3/uL (130-400); Red Cell Dist. Width 18.1 % (11.5-14.5)
== END ==
LOC: OLABP 09:44
PROVIDERS: ATTENDING PHYSICIAN Family Medicine
DX: J86.9 Pyothorax without fistula (principal); B95.62 Methicillin resistant Staphylococcus aureus infection as the cause of diseases classified elsewhere; C49.9 Malignant neoplasm of connective and soft tissue, unspecified; D64.9 Anemia, unspecified; E83.42 Hypomagnesemia; E87.1 Hypo-osmolality and hyponatremia; E87.6 Hypokalemia; E87.70 Fluid overload, unspecified; I95.1 Orthostatic hypotension; L89.152 Pressure ulcer of sacral region, stage 2; N17.9 Acute kidney failure, unspecified; N18.30 Chronic kidney disease, stage 3 unspecified; Z93.6 Other artificial openings of urinary tract status; Z86.711 Personal history of pulmonary embolism
CPT/HCPCS: 36415; 85027

== ENCOUNTER → 2024-11-24 13:33 | Outpatient (REF) | payer MEDICARE, BC, SELFPAY ==
[2024-11-24 14:00] VITALS: BP 82/62; BP_SYST 75
[2024-11-24 15:08] VITALS: BP 109/62
== END ==
LOC: RADI 13:33
PROVIDERS: ATTENDING PHYSICIAN Specialist; FAMILY PHYSICIAN Internal Medicine
DX: Z43.6 Encounter for attention to other artificial openings of urinary tract (principal); N13.5 Crossing vessel and stricture of ureter without hydronephrosis
CPT/HCPCS: 50435; C1729; C1769; C1887

== ENCOUNTER → 2024-11-28 12:43 | Outpatient (REF) | payer OTHER, MEDICARE, BC, SELFPAY ==
[2024-11-28 13:42] LABS: Hematocrit 25.4 % (37.0-47.0); Hemoglobin 8.0 g/dL (12.0-16.0); Mean Corp Hgb Conc. 31.5 g/dL (33.0-37.0); Mean Corpuscular Volume 96.9 fL (81.0-99.0); Nucleated Red Blood Cells % 0 %; Platelet Count 202 10^3/uL (130-400); Red Cell Dist. Width 18.5 % (11.5-14.5)
== END ==
LOC: OLABP 12:43
PROVIDERS: ATTENDING PHYSICIAN Family Medicine
DX: J86.9 Pyothorax without fistula (principal); B95.62 Methicillin resistant Staphylococcus aureus infection as the cause of diseases classified elsewhere; C49.9 Malignant neoplasm of connective and soft tissue, unspecified; E83.42 Hypomagnesemia; E87.1 Hypo-osmolality and hyponatremia; E87.6 Hypokalemia; E87.70 Fluid overload, unspecified; I95.1 Orthostatic hypotension; L89.152 Pressure ulcer of sacral region, stage 2; N17.9 Acute kidney failure, unspecified; N18.30 Chronic kidney disease, stage 3 unspecified
CPT/HCPCS: 36415; 85025

== ENCOUNTER → 2024-11-30 08:56 | Outpatient (REF) | payer OTHER, MEDICARE, BC, SELFPAY ==
[2024-11-30 10:15] LABS: Hematocrit 27.6 % (37.0-47.0); Hemoglobin 8.8 g/dL (12.0-16.0); Mean Corp Hgb Conc. 31.9 g/dL (33.0-37.0); Mean Corpuscular Volume 97.2 fL (81.0-99.0); Nucleated Red Blood Cells % 0 %; Platelet Count 225 10^3/uL (130-400); Red Cell Dist. Width 18.6 % (11.5-14.5)
== END ==
LOC: OLABP 08:56
PROVIDERS: ATTENDING PHYSICIAN Family Medicine
DX: J86.9 Pyothorax without fistula (principal); B95.62 Methicillin resistant Staphylococcus aureus infection as the cause of diseases classified elsewhere; C49.9 Malignant neoplasm of connective and soft tissue, unspecified; D64.9 Anemia, unspecified; E83.42 Hypomagnesemia; E87.1 Hypo-osmolality and hyponatremia; E87.6 Hypokalemia; E87.70 Fluid overload, unspecified; I95.1 Orthostatic hypotension; L89.152 Pressure ulcer of sacral region, stage 2; N17.9 Acute kidney failure, unspecified; N18.30 Chronic kidney disease, stage 3 unspecified; Z93.6 Other artificial openings of urinary tract status
CPT/HCPCS: 36415; 85025

== ENCOUNTER → 2024-12-06 10:45 | Outpatient (REF) | payer OTHER, MEDICARE, BC, SELFPAY ==
[2024-12-06 11:04] LABS: Hematocrit 26.6 % (37.0-47.0); Hemoglobin 8.9 g/dL (12.0-16.0); Mean Corp Hgb Conc. 33.5 g/dL (33.0-37.0); Mean Corpuscular Volume 96.7 fL (81.0-99.0); Nucleated Red Blood Cells % 0 %; Platelet Count 231 10^3/uL (130-400); Red Cell Dist. Width 18.6 % (11.5-14.5)
[2024-12-06 11:19] LABS: Blood Urea Nitrogen 38 mg/dl (7-17); Calcium 9.3 mg/dl (8.4-10.2); Carbon Dioxide 40 mmol/L (22-30); Chloride 86 mmol/L (98-107); Glucose 78 mg/dl (70-99); Potassium 2.9 mmol/L (3.5-5.1); Sodium 129 mmol/L (135-145); eGFR 38.27
== END ==
LOC: OLABP 10:45
PROVIDERS: ATTENDING PHYSICIAN Family Medicine
DX: J86.9 Pyothorax without fistula (principal); B95.62 Methicillin resistant Staphylococcus aureus infection as the cause of diseases classified elsewhere; C49.9 Malignant neoplasm of connective and soft tissue, unspecified; D64.9 Anemia, unspecified; E83.42 Hypomagnesemia; E87.1 Hypo-osmolality and hyponatremia; E87.6 Hypokalemia; E87.70 Fluid overload, unspecified; I95.1 Orthostatic hypotension; L89.152 Pressure ulcer of sacral region, stage 2; N17.9 Acute kidney failure, unspecified; N18.30 Chronic kidney disease, stage 3 unspecified; Z93.6 Other artificial openings of urinary tract status
CPT/HCPCS: 36415; 80048; 85025

== ENCOUNTER → 2024-12-07 10:56 | Outpatient (REF) | payer OTHER, MEDICARE, BC, SELFPAY ==
[2024-12-07 12:16] LABS: Blood Urea Nitrogen 39 mg/dl (7-17); Calcium 9.2 mg/dl (8.4-10.2); Carbon Dioxide 40 mmol/L (22-30); Chloride 83 mmol/L (98-107); Glucose 79 mg/dl (70-99); Potassium 2.6 mmol/L (3.5-5.1); Sodium 128 mmol/L (135-145); eGFR 35.23
[2024-12-07 12:38] LABS: TSH 89.90 uIU/ml (0.47-4.68)
== END ==
LOC: OLABP 10:56
PROVIDERS: ATTENDING PHYSICIAN Family Medicine
DX: J86.9 Pyothorax without fistula (principal); B95.62 Methicillin resistant Staphylococcus aureus infection as the cause of diseases classified elsewhere; C49.9 Malignant neoplasm of connective and soft tissue, unspecified; D64.9 Anemia, unspecified; E83.42 Hypomagnesemia
CPT/HCPCS: 36415; 80048; 84439; 84443

== ENCOUNTER → 2024-12-08 09:22 | Outpatient (REF) | payer OTHER, MEDICARE, BC, SELFPAY ==
[2024-12-08 12:19] LABS: Blood Urea Nitrogen 37 mg/dl (7-17); Calcium 9.1 mg/dl (8.4-10.2); Carbon Dioxide 38 mmol/L (22-30); Chloride 86 mmol/L (98-107); Glucose 84 mg/dl (70-99); Magnesium 1.4 mg/dl (1.6-2.3); Potassium 2.7 mmol/L (3.5-5.1); Sodium 131 mmol/L (135-145); eGFR 38.27
== END ==
LOC: OLABP 09:22
PROVIDERS: ATTENDING PHYSICIAN Family Medicine
DX: J86.9 Pyothorax without fistula (principal); B95.62 Methicillin resistant Staphylococcus aureus infection as the cause of diseases classified elsewhere; C49.9 Malignant neoplasm of connective and soft tissue, unspecified; D64.9 Anemia, unspecified; E83.42 Hypomagnesemia; E87.1 Hypo-osmolality and hyponatremia; E87.6 Hypokalemia; E87.70 Fluid overload, unspecified; I95.1 Orthostatic hypotension; L89.152 Pressure ulcer of sacral region, stage 2; N17.9 Acute kidney failure, unspecified
CPT/HCPCS: 36415; 80048; 83735

== ENCOUNTER → 2024-12-09 09:23 | Outpatient (REF) | payer OTHER, MEDICARE, BC, SELFPAY ==
[2024-12-09 09:49] LABS: Blood Urea Nitrogen 37 mg/dl (7-17); Calcium 9.0 mg/dl (8.4-10.2); Carbon Dioxide 36 mmol/L (22-30); Chloride 87 mmol/L (98-107); Glucose 87 mg/dl (70-99); Potassium 3.7 mmol/L (3.5-5.1); Sodium 131 mmol/L (135-145); eGFR 38.27
== END ==
LOC: OLABP 09:23
PROVIDERS: ATTENDING PHYSICIAN Family Medicine
DX: Z93.6 Other artificial openings of urinary tract status (principal); N18.30 Chronic kidney disease, stage 3 unspecified; E87.6 Hypokalemia; E83.42 Hypomagnesemia; D64.9 Anemia, unspecified; C49.9 Malignant neoplasm of connective and soft tissue, unspecified
CPT/HCPCS: 36415; 80048

== ENCOUNTER → 2024-12-11 11:02 | Outpatient (REF) | payer OTHER, MEDICARE, BC, SELFPAY ==
[2024-12-11 11:39] LABS: Hematocrit 28.5 % (37.0-47.0); Hemoglobin 9.6 g/dL (12.0-16.0); Mean Corp Hgb Conc. 33.7 g/dL (33.0-37.0); Mean Corpuscular Volume 96.0 fL (81.0-99.0); Nucleated Red Blood Cells % 0 %; Platelet Count 259 10^3/uL (130-400); Red Cell Dist. Width 18.4 % (11.5-14.5)
== END ==
LOC: OLABP 11:02
PROVIDERS: ATTENDING PHYSICIAN Family Medicine
DX: J86.9 Pyothorax without fistula (principal); B95.62 Methicillin resistant Staphylococcus aureus infection as the cause of diseases classified elsewhere; C49.9 Malignant neoplasm of connective and soft tissue, unspecified; D64.9 Anemia, unspecified; E83.42 Hypomagnesemia; E87.1 Hypo-osmolality and hyponatremia; E87.6 Hypokalemia; E87.70 Fluid overload, unspecified; N17.9 Acute kidney failure, unspecified
CPT/HCPCS: 36415; 85025

== ENCOUNTER → 2024-12-12 11:16 | Outpatient (REF) | payer OTHER, MEDICARE, BC, SELFPAY ==
[2024-12-12 13:27] LABS: Hematocrit 25.6 % (37.0-47.0); Hemoglobin 8.3 g/dL (12.0-16.0); Mean Corp Hgb Conc. 32.4 g/dL (33.0-37.0); Mean Corpuscular Volume 98.1 fL (81.0-99.0); Nucleated Red Blood Cells % 0 %; Platelet Count 244 10^3/uL (130-400); Red Cell Dist. Width 18.6 % (11.5-14.5)
[2024-12-12 13:43] LABS: Blood Urea Nitrogen 42 mg/dl (7-17); Calcium 8.2 mg/dl (8.4-10.2); Carbon Dioxide 33 mmol/L (22-30); Chloride 92 mmol/L (98-107); Glucose 82 mg/dl (70-99); Potassium 3.8 mmol/L (3.5-5.1); Sodium 131 mmol/L (135-145); eGFR 41.83
== END ==
LOC: OLABP 11:16
PROVIDERS: ATTENDING PHYSICIAN Family Medicine
DX: J86.9 Pyothorax without fistula (principal); B95.62 Methicillin resistant Staphylococcus aureus infection as the cause of diseases classified elsewhere; C49.9 Malignant neoplasm of connective and soft tissue, unspecified; D64.9 Anemia, unspecified; E87.1 Hypo-osmolality and hyponatremia; E87.6 Hypokalemia; E87.70 Fluid overload, unspecified; I95.1 Orthostatic hypotension; L89.152 Pressure ulcer of sacral region, stage 2; N17.9 Acute kidney failure, unspecified; N18.30 Chronic kidney disease, stage 3 unspecified; Z93.6 Other artificial openings of urinary tract status
CPT/HCPCS: 36415; 80048; 85025

== ENCOUNTER → 2024-12-14 11:24 | Outpatient (REF) | payer OTHER, MEDICARE, BC, SELFPAY ==
[2024-12-14 12:27] LABS: Hematocrit 25.2 % (37.0-47.0); Hemoglobin 7.7 g/dL (12.0-16.0); Mean Corp Hgb Conc. 30.6 g/dL (33.0-37.0); Mean Corpuscular Volume 102.9 fL (81.0-99.0); Platelet Count 239 10^3/uL (130-400); Red Cell Dist. Width 18.6 % (11.5-14.5)
== END ==
LOC: OLABP 11:24
PROVIDERS: ATTENDING PHYSICIAN Family Medicine
DX: J86.9 Pyothorax without fistula (principal); B95.62 Methicillin resistant Staphylococcus aureus infection as the cause of diseases classified elsewhere; C49.9 Malignant neoplasm of connective and soft tissue, unspecified; D64.9 Anemia, unspecified; E83.42 Hypomagnesemia; E87.1 Hypo-osmolality and hyponatremia; E87.6 Hypokalemia; E87.70 Fluid overload, unspecified; I95.1 Orthostatic hypotension
CPT/HCPCS: 36415; 85027

== ENCOUNTER → 2024-12-15 10:26 | Outpatient (REF) | payer OTHER, MEDICARE, BC, SELFPAY ==
[2024-12-15 11:23] LABS: Hematocrit 27.9 % (37.0-47.0); Hemoglobin 8.6 g/dL (12.0-16.0); Mean Corp Hgb Conc. 30.8 g/dL (33.0-37.0); Mean Corpuscular Volume 104.5 fL (81.0-99.0); Nucleated Red Blood Cells % 0 %; Platelet Count 265 10^3/uL (130-400); Red Cell Dist. Width 18.6 % (11.5-14.5)
== END ==
LOC: OLABP 10:26
PROVIDERS: ATTENDING PHYSICIAN Family Medicine
DX: J86.9 Pyothorax without fistula (principal); B95.62 Methicillin resistant Staphylococcus aureus infection as the cause of diseases classified elsewhere; C49.9 Malignant neoplasm of connective and soft tissue, unspecified; D64.9 Anemia, unspecified; E83.42 Hypomagnesemia; E87.1 Hypo-osmolality and hyponatremia; E87.6 Hypokalemia; E87.70 Fluid overload, unspecified; I95.1 Orthostatic hypotension; L89.152 Pressure ulcer of sacral region, stage 2; N17.9 Acute kidney failure, unspecified; N18.30 Chronic kidney disease, stage 3 unspecified; Z93.6 Other artificial openings of urinary tract status
CPT/HCPCS: 36415; 85025

== ENCOUNTER → 2024-12-18 12:45 | Outpatient (REF) | payer OTHER, MEDICARE, BC, SELFPAY ==
[2024-12-18 13:23] LABS: Hematocrit 26.6 % (37.0-47.0); Hemoglobin 8.0 g/dL (12.0-16.0); Mean Corp Hgb Conc. 30.1 g/dL (33.0-37.0); Mean Corpuscular Volume 103.5 fL (81.0-99.0); Nucleated Red Blood Cells % 0 %; Platelet Count 252 10^3/uL (130-400); Red Cell Dist. Width 18.1 % (11.5-14.5)
[2024-12-18 13:30] LABS: Blood Urea Nitrogen 35 mg/dl (7-17); Calcium 8.5 mg/dl (8.4-10.2); Carbon Dioxide 28 mmol/L (22-30); Chloride 101 mmol/L (98-107); Glucose 70 mg/dl (70-99); Potassium 3.9 mmol/L (3.5-5.1); Sodium 133 mmol/L (135-145); eGFR 35.01
== END ==
LOC: OLABP 12:45
PROVIDERS: ATTENDING PHYSICIAN Family Medicine
DX: I95.1 Orthostatic hypotension (principal); E87.70 Fluid overload, unspecified; L89.152 Pressure ulcer of sacral region, stage 2; N17.9 Acute kidney failure, unspecified; N18.30 Chronic kidney disease, stage 3 unspecified; Z93.6 Other artificial openings of urinary tract status; J86.9 Pyothorax without fistula; B95.62 Methicillin resistant Staphylococcus aureus infection as the cause of diseases classified elsewhere; C49.9 Malignant neoplasm of connective and soft tissue, unspecified; D64.9 Anemia, unspecified; E83.42 Hypomagnesemia
CPT/HCPCS: 36415; 80048; 85025

== ENCOUNTER → 2024-12-22 13:08 | Outpatient (REF) | payer MEDICARE, BC, SELFPAY ==
[2024-12-22 15:21] LABS: Hematocrit 27.3 % (37.0-47.0); Hemoglobin 8.5 g/dL (12.0-16.0); Mean Corp Hgb Conc. 31.1 g/dL (33.0-37.0); Mean Corpuscular Volume 102.6 fL (81.0-99.0); Nucleated Red Blood Cells % 0 %; Platelet Count 249 10^3/uL (130-400); Red Cell Dist. Width 17.0 % (11.5-14.5)
[2024-12-22 15:31] LABS: ALT (SGPT) 17 U/L (0-35); AST (SGOT) 26 U/L (14-36); Albumin 3.6 g/dl (3.5-5.0); Alkaline Phosphatase 63 U/L (38-126); Blood Urea Nitrogen 28 mg/dl (7-17); Calcium 7.7 mg/dl (8.4-10.2); Chloride 90 mmol/L (98-107); Glucose 87 mg/dl (70-99); Potassium 3.0 mmol/L (3.5-5.1); Sodium 134 mmol/L (135-145); Total Protein 6.4 g/dl (6.3-8.2); eGFR 41.57
[2024-12-22 15:40] LABS: Carbon Dioxide 36 mmol/L (22-30)
[2024-12-22 16:02] LABS: TSH 78.30 uIU/ml (0.47-4.68)
== END ==
LOC: HWLAB 13:08
PROVIDERS: ATTENDING PHYSICIAN Internal Medicine
DX: D64.9 Anemia, unspecified (principal); N18.30 Chronic kidney disease, stage 3 unspecified; R60.9 Edema, unspecified
CPT/HCPCS: 36415; 80053; 84439; 84443; 85025